=== PATIENT | female | born 1945 | race Caucasian/White ===

== ENCOUNTER 2017-08-30 07:57 | Inpatient (IN) | payer MEDICARE, OTHER ==
[~2017-08-30] VITALS: Ht 170.2 cm; Wt 81.2 kg
[~2017-08-30 07:57] MED LIST: ACET-3017 PO; AML5 PO; AMLO-96 PO; ASPI-1471 PO; ATOR40TA24 PO; CARV12.578 PO; CARV25TA77 PO; CARV25TA78 PO; CEP500 PO; CIPR-214 PO; CRAN200C5 PO; DIGO125T90 PO; DILT120C PO; DILT120C18 PO; DILT360C35 PO; EZE10 PO; FURO-45 PO; FURO-47 PO; FURO20TA19 PO; GLUC100026 PO; HYDR12.556 PO; INSU100V26 SC; LOR5/325 PO; LOS50 PO; LOSA-54 PO; LOSA100T67 PO; LOSA25TA50 PO; LOSA50TA72 PO; LYSI500T34 PO; METO50TA19 PO; MULT1TAB64 PO; NITR-105 PO; NPH,100V10 SQ; OXYGENHOME INH; PANT20TA26 PO; POTA20TA10; POTA20TA94 PO; RIVA15TA PO; RIVA20TA PO; SITA100T PO; SPIR1TAB26 PO; SULF-198 PO; [UNRECOGNIZED DRUG - CODE] PO
--- NOTE | 2017-08-30 08:03 | ER Report ---
History and Physical Time Seen By MD: 08:02 HPI/ROS CC: Shortness of breath with dysuria HPI: Since female with a past medical history CHF, recurrent urinary tract infections , chronic disease stage III, three-vessel CABG at [facility], lumbar surgery, bilateral cataract extraction with intraocular lens, T&A atrial fibrillation on Xeralto, chronic diastolic heart failure, COPD on 3 L nasal cannula O2 24/7. Over the last week patient has increased in shortness of breath. She is complaining of increased ankle swelling. Decreased exercise tolerance. She denies any chest pressure or pain only increased shortness of breath. No diaphoresis, nausea. Patient also states that she has had chronic ongoing urinary tract infections and has been treated with Cipro and Levaquin in the past. She followed up with Dr. Reid. She states that he keeps putting her on Cipro and she remembers free from her urinary tract infection. She is stating that she has dysuria and is rating her pain as a 7-8 out of 10. Increased frequencies. There are no alleviating factors. Reviewing her old chart 3 of the last 4 visits she has presented with CHF and urinary tract infections. Activity seems to make her shortness of breath worse. ROS: 12 point review of systems essentially negative other than what's mentioned in history of present illness. NURSES AND OLD MEDICAL RECORDS: Reviewed PMH: Reviewed SURGICAL HX: Reviewed FAMILY HX: Noncontributory SOCIAL HX: Patient denies smoking alcohol or illicit drugs. VITAL SIGNS: Reviewed CONSTITUTIONAL: Since female in moderate distress. PHYSICAL EXAM: HEENT: Pupils equal round reactive to light and accommodate, EOMI, tympanic membranes pearly white umbo present with good light reflex. Lips dry mucous membranes moist gums nonbleeding uvula midline and rises equally with phonation, oropharynx noninjected, teeth intact. NECK: Neck supple, thyroid not appreciated, anterior and posterior cervical lymphadenopathy not appreciated. Trachea midline and rises equally with phonation. CARDIAC: S1-S2 irregularly irregular with 6 systolic murmur 2nd intercostal space right sternal border. No rubs or gallops. LUNGS: Lungs slight rales at the bases bilaterally posteriorly. Decreased air movement. ABDOMEN: Abdomen soft, nondistended, bowel sounds active in all 4 quadrants, no bruits noted, no CVA tenderness. MUSCULOSKELETAL: Strength 5 out of 5 x 4 extremities, no deformities noted. NEUROLOGIC: Patient alert and oriented by 3 Allergies: Coded Allergies: ketorolac (Verified Allergy, Severe, COULD NOT SEE, N&V, THOUGHT SHE WAS GOING TO , 08/30/17) ibuprofen (Verified Adverse Reaction, Unknown, DIZZINESS, NAUSEA, VOMITING , 08/30/17) Home Meds Active Scripts Furosemide (FUROSEMIDE) 40 Mg Tablet, 40 MG PO QDAY, #30 Prov:UMM APONTE MD 04/15/17 Diltiazem Hcl (DILTIAZEM 24HR CD) 120 Mg Cap.er.24h, 240 MG PO QDAY, #60 Prov:UMM APONTE MD 04/15/17 Carvedilol (CARVEDILOL) 25 Mg Tablet, 25 MG PO BID, #60 Prov:UMM APONTE MD 04/15/17 Digoxin (Digox) 125 Mcg Tablet, 0.125 MG PO QDAY, #30 TAB 1 Refill Prov:RAMIN DUMONT MD 02/14/17 Reported Medications Oxygen (OXYGEN) Inha, 3 L INH, L 06/18/17 Rivaroxaban 20 Mg (XARELTO 20 MG) 20 Mg Tablet, 20 MG PO QDAY, TAB 02/07/17 Lysine (LYSINE) 500 Mg Tablet, 500 MG PO DAILY 04/27/16 Cranberry Extract (CRANBERRY) 200 Mg Capsule, 200 MG PO BID, CAPSULE 11/11/14 Glucosamine Sulfate 2KCL (GLUCOSAMINE) 1,000 Mg Tablet, 1000 MG PO BID 04/14/14 Multivitamin (MULTI VITAMIN DAILY) 1 Each Tablet, 1 EACH PO QDAY 04/14/14 Insulin Human Regular (Humulin R) 100 U/Ml Vial, 5 U SC TIDCF SS FOR BS 200-250 2 UNITS, 251-300 4 UNITS, 301-350 6 UNITS, 351-400 8 UNITS, OVER 400 10 UNITS 03/04/12 Nph, Human Insulin Isophane (HUMULIN N) 100 Unit/1 Ml Vial, 35 UNIT SQ BIDBS 03/04/12 Discontinued Reported Medications Ciprofloxacin Hcl (CIPROFLOXACIN HCL) 500 Mg Tablet, 500 MG PO BID, #30 TAB 06/21/17 Acetaminophen With Codeine # 3 (TYLENOL WITH CODEINE #3 TABLET) 1 Each Tablet, 1 EACH PO Q6H Y for PAIN, #15 TAB 06/21/17 Hx Smoking: No Smoking Status: Never Smoker Exposure to Second Hand Smoke?: Yes (daugher smokes) Hx Substance Use Disorder: No Hx Alcohol Use: No Constitutional Vital Sign - Last 24 Hours 08/30/17 08/30/17 08/30/17 08/30/17 08:01 08:03 08:07 08:30 Temp 97.6 Pulse 97 Resp 20 B/P (MAP) 133/79 133/79 (97) 175/81 (112) Pulse Ox 91 O2 Delivery Nasal Cannula O2 Flow Rate 3.0 08/30/17 08/30/17 08/30/17 08:37 08:37 08:43 Pulse 80 93 Resp 18 18 Pulse Ox 91 O2 Delivery Nasal Cannula O2 Flow Rate 3.0 Intake and Output 08/30/17 08/30/17 08/31/17 15:00 23:00 07:00 Output Total 215 ml Balance -215 ml Medical Decision Making Data Points Result Diagram: 08/30/17 0820 08/30/17 0820 Laboratory Hematology Test 08/30/17 08:20 08/30/17 08:38 08/30/17 09:00 Red Blood Count 3.51 M/uL (4.17-5.56) Mean Corpuscular Volume 82.8 fL (80.0-96.0) Mean Corpuscular Hemoglobin 25.4 pg (26.0-33.0) Mean Corpuscular Hemoglobin Concent 30.7 g/dL (32.0-36.0) Red Cell Distribution Width 22.7 % (11.5-14.5) Mean Platelet Volume 8.3 fL (7.2-11.1) Neutrophils (%) (Auto) 73.9 % (39.4-72.5) Lymphocytes (%) (Auto) 12.9 % (17.6-49.6) Monocytes (%) (Auto) 9.7 % (4.1-12.4) Eosinophils (%) (Auto) 2.6 % (0.4-6.7) Basophils (%) (Auto) 0.9 % (0.3-1.4) Nucleated RBC Relative Count (auto) 0.4 /100WBC Neutrophils # (Auto) 10.6 K/uL (2.0-7.4) Lymphocytes # (Auto) 1.9 K/uL (1.3-3.6) Monocytes # (Auto) 1.4 K/uL (0.3-1.0) Eosinophils # (Auto) 0.4 K/uL (0.0-0.5) Basophils # (Auto) 0.1 K/uL (0.0-0.1) Nucleated RBC Absolute Count (auto) 0.06 K/uL Peripheral Blood Smear Yes Y/N Prothrombin Time 21.0 seconds (12.0-14.4) Prothromb Time International Ratio 1.77 Activated Partial Thromboplast Time 38 seconds (23-35) D-Dimer Quantitative (PE/DVT) 0.39 ug/ml (0-0.50) Urine Color Mary Urine Clarity Clear Urine pH 6.0 pH (4.8-9.5) Urine Specific [place] 1.010 Urine Protein 100 mg/dL (NEGATIVE) Urine Glucose (UA) Negative mg/dL (NEGATIVE) Urine Ketones Negative mg/dL (NEGATIVE) Urine Blood Moderate (NEGATIVE) Urine Nitrite Positive (NEGATIVE) Urine Bilirubin Negative (NEGATIVE) Urine Urobilinogen 4.0 mg/dL (0.2-1.9) Urine Leukocyte Esterase Trace (NEGATIVE) Urine RBC 92 /HPF (0-2/HPF) Urine WBC 113 /HPF (0-5/HPF) Urine WBC Clumps Few /HPF Urine Squamous Epithelial Cells Few /LPF (NONE-FEW) Urine Bacteria Moderate /HPF (NONE-FEW) Urine Hyaline Casts Few /LPF (NONE-FEW) Urine Mucus None /HPF (NONE-FEW) Sodium Level 138 mmol/L (137-145) Potassium Level 3.6 mmol/L (3.5-5.0) Chloride Level 100 mmol/L (98-107) Carbon Dioxide Level 27 mmol/L (22-31) Blood Urea Nitrogen 15 mg/dl (7-18) Creatinine 1.10 mg/dl (0.52-1.04) Glomerular Filtration Rate Calc 48.8 Random Glucose 165 mg/dl (75-110) Hemoglobin A1c 6.4 % (4.6-6.0) Calcium Level 9.7 mg/dl (8.4-10.2) Magnesium Level 1.8 mg/dl (1.7-2.2) Total Bilirubin 2.0 mg/dl (0.2-1.3) Aspartate Amino Transf (AST/SGOT) 22 U/L (0-35) Alanine Aminotransferase (ALT/SGPT) 30 U/L (0-56) Alkaline Phosphatase 99 U/L (0-126) Troponin I 0.029 ng/ml B-Type Natriuretic Peptide 419 pg/ml (0-100) Total Protein 6.4 gm/dl (6.3-8.2) Albumin 3.7 g/dl (3.5-5.0) Blood Gas Puncture Site Left brachial Blood Gas Patient Temperature 97.6 DEGREES Arterial Blood pH 7.61 (7.35-7.45) Arterial Blood Partial Pressure CO2 28 mmHg (32-37) Arterial Blood Partial Pressure O2 129 mmHg (60-80) Arterial Blood HCO3 28 mmol/L (20-26) Arterial Blood Oxygen Saturation 99 % (92-100) Arterial Blood Base Excess 7.0 mmol/L Fausto Test Nt avail Oxygen Liters/Minute 3l nc Stool Occult Blood (IFOB) Positive (NEGATIVE) Chemistry Test 08/30/17 08:20 08/30/17 08:38 08/30/17 09:00 White Blood Count 14.4 k/uL (4.5-11.0) Red Blood Count 3.51 M/uL (4.17-5.56) Hemoglobin 8.9 g/dL (12.0-16.0) Hematocrit 29.1 % (34.0-47.0) Mean Corpuscular Volume 82.8 fL (80.0-96.0) Mean Corpuscular Hemoglobin 25.4 pg (26.0-33.0) Mean Corpuscular Hemoglobin Concent 30.7 g/dL (32.0-36.0) Red Cell Distribution Width 22.7 % (11.5-14.5) Platelet Count 392 K/uL (150-450) Mean Platelet Volume 8.3 fL (7.2-11.1) Neutrophils (%) (Auto) 73.9 % (39.4-72.5) Lymphocytes (%) (Auto) 12.9 % (17.6-49.6) Monocytes (%) (Auto) 9.7 % (4.1-12.4) Eosinophils (%) (Auto) 2.6 % (0.4-6.7) Basophils (%) (Auto) 0.9 % (0.3-1.4) Nucleated RBC Relative Count (auto) 0.4 /100WBC Neutrophils # (Auto) 10.6 K/uL (2.0-7.4) Lymphocytes # (Auto) 1.9 K/uL (1.3-3.6) Monocytes # (Auto) 1.4 K/uL (0.3-1.0) Eosinophils # (Auto) 0.4 K/uL (0.0-0.5) Basophils # (Auto) 0.1 K/uL (0.0-0.1) Nucleated RBC Absolute Count (auto) 0.06 K/uL Peripheral Blood Smear Yes Y/N Prothrombin Time 21.0 seconds (12.0-14.4) Prothromb Time International Ratio 1.77 Activated Partial Thromboplast Time 38 seconds (23-35) D-Dimer Quantitative (PE/DVT) 0.39 ug/ml (0-0.50) Urine Color Mary Urine Clarity Clear Urine pH 6.0 pH (4.8-9.5) Urine Specific [place] 1.010 Urine Protein 100 mg/dL (NEGATIVE) Urine Glucose (UA) Negative mg/dL (NEGATIVE) Urine Ketones Negative mg/dL (NEGATIVE) Urine Blood Moderate (NEGATIVE) Urine Nitrite Positive (NEGATIVE) Urine Bilirubin Negative (NEGATIVE) Urine Urobilinogen 4.0 mg/dL (0.2-1.9) Urine Leukocyte Esterase Trace (NEGATIVE) Urine RBC 92 /HPF (0-2/HPF) Urine WBC 113 /HPF (0-5/HPF) Urine WBC Clumps Few /HPF Urine Squamous Epithelial Cells Few /LPF (NONE-FEW) Urine Bacteria Moderate /HPF (NONE-FEW) Urine Hyaline Casts Few /LPF (NONE-FEW) Urine Mucus None /HPF (NONE-FEW) Glomerular Filtration Rate Calc 48.8 Hemoglobin A1c 6.4 % (4.6-6.0) Calcium Level 9.7 mg/dl (8.4-10.2) Magnesium Level 1.8 mg/dl (1.7-2.2) Total Bilirubin 2.0 mg/dl (0.2-1.3) Aspartate Amino Transf (AST/SGOT) 22 U/L (0-35) Alanine Aminotransferase (ALT/SGPT) 30 U/L (0-56) Alkaline Phosphatase 99 U/L (0-126) Troponin I 0.029 ng/ml B-Type Natriuretic Peptide 419 pg/ml (0-100) Total Protein 6.4 gm/dl (6.3-8.2) Albumin 3.7 g/dl (3.5-5.0) Blood Gas Puncture Site Left brachial Blood Gas Patient Temperature 97.6 DEGREES Arterial Blood pH 7.61 (7.35-7.45) Arterial Blood Partial Pressure CO2 28 mmHg (32-37) Arterial Blood Partial Pressure O2 129 mmHg (60-80) Arterial Blood HCO3 28 mmol/L (20-26) Arterial Blood Oxygen Saturation 99 % (92-100) Arterial Blood Base Excess 7.0 mmol/L Fausto Test Nt avail Oxygen Liters/Minute 3l nc Stool Occult Blood (IFOB) Positive (NEGATIVE) Coagulation Test 08/30/17 08:20 Prothrombin Time 21.0 seconds Prothromb Time International Ratio 1.77 Activated Partial Thromboplast Time 38 seconds D-Dimer Quantitative (PE/DVT) 0.39 ug/ml Urinalysis Test 08/30/17 08:20 Urine Color Mary Urine Clarity Clear Urine pH 6.0 pH (4.8-9.5) Urine Specific [place] 1.010 Urine Protein 100 mg/dL (NEGATIVE) Urine Glucose (UA) Negative mg/dL (NEGATIVE) Urine Ketones Negative mg/dL (NEGATIVE) Urine Blood Moderate (NEGATIVE) Urine Nitrite Positive (NEGATIVE) Urine Bilirubin Negative (NEGATIVE) Urine Urobilinogen 4.0 mg/dL (0.2-1.9) Urine Leukocyte Esterase Trace (NEGATIVE) Urine RBC 92 /HPF (0-2/HPF) Urine WBC 113 /HPF (0-5/HPF) Urine WBC Clumps Few /HPF Urine Squamous Epithelial Cells Few /LPF (NONE-FEW) Urine Bacteria Moderate /HPF (NONE-FEW) Urine Hyaline Casts Few /LPF (NONE-FEW) Urine Mucus None /HPF (NONE-FEW) Microbiology Microbiology Date/Time Source Procedure Growth Status 08/30/17 08:38 Blood Peripheral Draw Blood Culture - Preliminary NO GROWTH SO FAR, SET LATE. REINCUBATED Resulted 08/30/17 08:19 Blood Blood Culture - Preliminary NO GROWTH SO FAR, SET LATE. REINCUBATED Resulted EKG/Imaging EKG Interpretation Atrial fibrillation, right axis deviation, incomplete left bundle branch block, ST T wave abnormality possible inferior ischemia or dig effect. Ventricular rate 86 bpm, FL interval not measurable, QRS duration 112 ms, QT 380 ms, QTC 454 ms. Configurations of V1 through V6 from previous ECG has not changed from 04/12/2017. Imaging Chest x-ray: IMPRESSION: No significant change from 04/12/2017. Mild cardiomegaly with chronic venous congestion and a small left pleural effusion. Sequela of prior CABG. ED Course/Re-evaluation ED Course Patient has decreasing hemoglobin and hematocrit from previous lab work on a 06/2017. At that time her hemoglobin was 11.2 with a hematocrit of 35.5 today she has a hemoglobin of 8.9 and a hematocrit of 29.4. ECG does not show any specific changes. Patient does have a leukocytosis of 14.4. Due to the long history of urinary tract infections patient was given vancomycin in the light of increasing leukocytosis. Blood cultures by 2 have been taken. ABGs reveal a respiratory alkalosis. Urinalysis reveals positive leukocyte esterases and nitrates with moderate blood. 0953: I discussed the case with Dr. Dumont. Patient historically looks worse today with dropping hemoglobin of 8.9 and a positive Hemoccult. Leukocytosis with WBC of 14.4 is an acute change. Chest x-ray shows venous congestion but no kathleen infiltrates or consolidations. Left lower lobe effusion remains. ABGs shows acute respiratory alkalosis which may be secondary to anxiety. Patient received Ativan 1 mg. ECG did not show any acute changes. Due to UTI that appears to be chronic, leukocytosis, new-onset anemia patient will be admitted to the hospital for further evaluation and workup. Initially patient received vancomycin patient reporting that antibiotics in the past have eliminated her UTI. I assumed drug-resistant urinary tract infection and therefore gave vancomycin. But in reviewing her old chart last susceptibilities and sensitivities most all antibiotics will be effective. Patient received a DuoNeb treatment for her shortness of breath with improvement. Patient received Solu- Medrol 125 mg IV for her shortness of breath and her history of COPD. Patient also received Lasix image away as she has always presented with CHF. Today her lower leg edema was 2+ bilaterally. I discussed this with Dr. Dumont. Patient will be admitted to the hospital for further evaluation and treatment. Re-evaluation Medical decision making includes but not excluded to CHF, TIA, acute coronary syndrome, anemia, GI bleed Decision to Disposition Date: Aug 30, 2017 Decision to Disposition Time: 09:59 Depart Departure Latest Vital Signs Vital Signs Date Time Temp Pulse Resp B/P (MAP) Pulse Ox O2 Delivery O2 Flow Rate FiO2 08/30/17 08:43 93 18 08/30/17 08:37 91 Nasal Cannula 3.0 08/30/17 08:30 175/81 (112) 08/30/17 08:01 97.6 Impression: Primary Impression: Anemia Additional Impressions: CKD (chronic kidney disease) stage 3, GFR 30-59 ml/min UTI (lower urinary tract infection) Leukocytosis Blood in stool Condition: Condition Unchanged Disposition: Admitted from ER Referrals: KARIN MELENDEZ DO (PCP) Problem Qualifiers Primary Impression: Anemia Anemia type: unspecified type Qualified Codes: D64.9 - Anemia, unspecified Additional Impressions: Leukocytosis Leukocytosis type: unspecified Qualified Codes: D72.829 - Elevated white blood cell count, unspecified RENETTA ORDOÑEZ MD Aug 30, 2017 08:03
[2017-08-30] MEDS ORDERED: FUROSEMIDE 40 MG/4 ML VIAL IVP ONE (08:15)
[2017-08-30] MEDS ORDERED: VANCOMYCIN(*) 1 GM VIAL 1 GM, VANCOMYCIN (*) 0.5 GM VIAL 0.5 GM in NS(*) 0.9% 250 ML BA... IVPB ONE (08:15)
--- NOTE | 2017-08-30 08:22 | EKG ---
FACILITY: [facility] - [place] PATIENT NAME: ELIZABETH ROD : [id number] MR: [id number] V: [id number] EXAM DATE: ORDERING PHYSICIAN: RENETTA ORDOÑEZ TECHNOLOGIST: HARPREET Test Reason : SOB Blood Pressure : / mmHG Vent. Rate : 086 BPM Atrial Rate : 088 BPM P-R Int : 000 ms QRS Dur : 112 ms QT Int : 380 ms P-R-T Axes : 000 095 -68 degrees QTc Int : 454 ms Atrial fibrillation Rightward axis Incomplete left bundle branch block ST-T changes diffusely Abnormal ECG When compared with ECG of 12-APR-2017 17:48, No significant change was found Confirmed by RAMIN THURMAN ([id number]) on 08/30/2017 1:30:16 PM Referred By: TIAGO Confirmed By:RAMIN THURMAN
[2017-08-30] MEDS ORDERED: ALBUTEROL/IPRATROPIUM 3 ML NEB NEB ONE (08:35)
[2017-08-30] MEDS ORDERED: methylPREDNIS SUCC 125 MG/2ML IVP ONE (08:35)
[2017-08-30 08:37] LABS: PLATELET COUNT, AUTOMATED 392 K/uL (150-450)
[2017-08-30 08:45] LABS: INR 1.77
[2017-08-30] MEDS ORDERED: LORazepam 2 MG/ML VIAL IVP ONE (09:05)
--- NOTE | 2017-08-30 09:43 | RADIOLOGY IMAGING REPORT ---
FACILITY: [facility] PATIENT NAME: Elena Saunders : 1945 MR: [id number] V: [id number] EXAM DATE: ORDERING PHYSICIAN: RENETTA ORDOÑEZ TECHNOLOGIST: [place] [facility] [place] Sa[place] : 1945 Visit/Account:[id number] Date of Sevice: 08/30/2017 CHEST PA AND LAT COMPARISON: 04/12/2017 HISTORY: Chest pain, shortness of breath and history of CABG. FINDINGS: CARDIAC/VASC: Mild stable cardiomegaly with mild diffuse vascular congestion which is similar to p revious. Intact sternotomy wires. Mediastinal clips indicative of prior CABG.. MEDIASTINUM: Mild aortic calcifications. No appreciable adenopathy. LUNGS/PLEURA: Small left pleural effusion without significant change from previous. No significant r ight effusion. Linear opacities in the left lower lobe are stable from previous consistent with mild chronic atelectasis or scarring. There is no consolidation. BONES: Mild thoracic spine degenerative changes. OTHER: Moderate vascular calcifications in the abdomen. IMPRESSION: No significant change from 04/12/2017. Mild cardiomegaly with chronic venous congestion and a small le ft pleural effusion. Sequela of prior CABG. Report Dictated By: Michael Nunez at 08/30/2017 9:38 AM Report E-Signed By: Michael Nunez at 08/30/2017 9:39 AM WSN:[id number]
[2017-08-30 10:54] VITALS: BP 134/80
[2017-08-30] MEDS ORDERED: cefTRIAXone 1 GM VIAL IVP ONE (13:00)
[2017-08-30] MEDS ORDERED: NS(*) 0.9% 250 ML BAG 250 ML ONE (13:05)
[2017-08-30] MEDS ORDERED: FLUSH 10 ML SYR IVP PRN (14:30)
--- NOTE | 2017-08-30 14:34 | History & Physical ---
History of Present Illness Chief Complaint The patient is a 71 year old female with PMH significant for recurrent UTI, diastolic heart failure and CAD who presents with a 2-3 day history of frequency of urination and dysuria and a 2 day history of increased shortness of breath. History of Present Illness The patient states that she has had recurrent UTIs since retiring. Her mother had them as well. She had an outpatient cystoscopy with Dr. Reid on 06/21 that showed acute and chronic inflammation. Cytology was negative. She was treated with 6 weeks of Cipro. She states she started having dysuria and increased frequency 2-3 days prior to admission. She denies fever, chills, abdominal or flank pain. She did start OTC AZO for her symptoms. The patient states she showers and does not sit in a tub. She is and not sexually active. She is frustrated that she continues to get these infections. The patient also has a history of chronic diastolic dysfunction (3-4/4 on recent echo). She also has a history of CAD s/p CABG about 4 years ago. She also has chronic atrial fibrillation. She denies chest pain or diaphoresis. She has not been nauseated. She denies increased heart rate or palpitations. She states that she has noticed increased fatigue and shortness of breath with exertion over the past 2 days. She admits that she has been pushing herself to try and do more physical activity. She sleeps in a recliner due to back/hip pain. She has woken up at night acutely short of breath. She has had chronic swelling of her ankles since her CABG. She says the swelling worsens during the day and improves overnight. This has been a bit worse as well. She has seen Dr. Swanson, pan devulcanizer, in the past but now prefers to have Dr. Barboza, her PCP, manage her cardiac medications. History Problems: (1) Follicular non-Hodgkin's lymphoma Status: Chronic (2) CKD (chronic kidney disease) stage 3, GFR 30-59 ml/min Status: Chronic (3) Anemia Status: Chronic (4) Chronic diastolic (congestive) heart failure Status: Acute (5) Type II diabetes mellitus Status: Chronic (6) HTN (hypertension) Status: Chronic (7) CAD (coronary artery disease) Status: Chronic (8) Hypercholesteremia Status: Chronic (9) Edema Status: Chronic Home Meds Active Scripts Furosemide (FUROSEMIDE) 40 Mg Tablet, 40 MG PO QDAY, #30 Prov:UMM APONTE MD 04/15/17 Diltiazem Hcl (DILTIAZEM 24HR CD) 120 Mg Cap.er.24h, 240 MG PO QDAY, #60 Prov:UMM APONTE MD 04/15/17 Carvedilol (CARVEDILOL) 25 Mg Tablet, 25 MG PO BID, #60 Prov:UMM APONTE MD 04/15/17 Digoxin (Digox) 125 Mcg Tablet, 0.125 MG PO QDAY, #30 TAB 1 Refill Prov:RAMIN THURMAN MD 02/14/17 Reported Medications Oxygen (OXYGEN) Inha, 3 L INH, L 06/18/17 Rivaroxaban 20 Mg (XARELTO 20 MG) 20 Mg Tablet, 20 MG PO QDAY, TAB 02/07/17 Lysine (LYSINE) 500 Mg Tablet, 500 MG PO DAILY 04/27/16 Cranberry Extract (CRANBERRY) 200 Mg Capsule, 200 MG PO BID, CAPSULE 11/11/14 Glucosamine Sulfate 2KCL (GLUCOSAMINE) 1,000 Mg Tablet, 1000 MG PO BID 04/14/14 Multivitamin (MULTI VITAMIN DAILY) 1 Each Tablet, 1 EACH PO QDAY 04/14/14 Insulin Human Regular (Humulin R) 100 U/Ml Vial, 5 U SC TIDCF SS FOR BS 200-250 2 UNITS, 251-300 4 UNITS, 301-350 6 UNITS, 351-400 8 UNITS, OVER 400 10 UNITS 03/04/12 Nph, Human Insulin Isophane (HUMULIN N) 100 Unit/1 Ml Vial, 35 UNIT SQ BIDBS 03/04/12 Discontinued Reported Medications Ciprofloxacin Hcl (CIPROFLOXACIN HCL) 500 Mg Tablet, 500 MG PO BID, #30 TAB 06/21/17 Acetaminophen With Codeine # 3 (TYLENOL WITH CODEINE #3 TABLET) 1 Each Tablet, 1 EACH PO Q6H Y for PAIN, #15 TAB 06/21/17 Allergies: Coded Allergies: ketorolac (Verified Allergy, Severe, COULD NOT SEE, N&V, THOUGHT SHE WAS GOING TO , 08/30/17) ibuprofen (Verified Adverse Reaction, Unknown, DIZZINESS, NAUSEA, VOMITING , 08/30/17) Patient History: UTI (urinary tract infection) MOTHER (CKD), Other Social/Family Hx The patient is and retired. Hx Smoking: No Smoking Status: Never Smoker Exposure to Second Hand Smoke?: Yes (daugher smokes) Caffeine Intake: Soda Caffeine/Cups Per Day: occ 1 can Hx Alcohol Use: No Hx Substance Use Disorder: No Social Drug Use: Never History of IV Drug Use: No Review of Systems Constitutional: No Fever, No Chills Neurological: Weakness (With exertion.) Eyes: No Vision Change ENT: No Hearing Loss Cardiovascular: No Chest Pain, No Palpitations Respiratory: Shortness of Breath, No Cough, No Wheezing Gastrointestinal: No Nausea, No Vomiting, No Diarrhea Genitourinary: Dysuria Musculoskeletal: No Pain Psychiatric: No Depression Exam Vital Signs Vital Signs Date Time Temp Pulse Resp B/P (MAP) Pulse Ox O2 Delivery O2 Flow Rate FiO2 08/30/17 12:43 91 Nasal Cannula 5.0 08/30/17 10:54 97.9 106 18 134/80 (98) General Appearance: Alert, Awake, No Acute Distress, Afebrile Neuro: No Gross deficits Eyes: PERRLA Cardiovascular: Other (Irregularly irregular.) Respiratory: Other (Diffuse crackles anteriorly and in bases posteriorly. No wheezing or rhonchi.) GI: Abd Soft and Non-Tender Lymph: Cervical Nodes Benign Extremities: Warm, Perfused, Other (Trace to 1+ edema.) Integumentary: Skin Intact without Lesion / Mass Psych: Alert & Oriented X3, Appropriate Mood & Affect Medical Decision Making Data Points Result Diagram: 08/30/17 0820 08/30/17 0820 Item Value Date Time Prothrombin Time 21.0 seconds H 08/30/17 0820 Prothromb Time International Ratio 1.77 08/30/17 0820 Activated Partial Thromboplast Time 38 seconds H 08/30/17 0820 D-Dimer Quantitative (PE/DVT) 0.39 ug/ml 08/30/17 0820 Blood Gas Puncture Site Left brachial 08/30/17 0838 Blood Gas Patient Temperature 97.6 DEGREES 08/30/17 0838 Arterial Blood pH 7.61 *H 08/30/17 0838 Arterial Blood Partial Pressure CO2 28 mmHg L 08/30/17 0838 Arterial Blood Partial Pressure O2 129 mmHg *H 08/30/17 0838 Arterial Blood HCO3 28 mmol/L H 08/30/17 0838 Arterial Blood Oxygen Saturation 99 % 08/30/17 0838 Arterial Blood Base Excess 7.0 mmol/L 08/30/17 0838 Fausto Test Nt avail 08/30/17 0838 Oxygen Liters/Minute 3l nc 08/30/17 0838 B-Type Natriuretic Peptide 419 pg/ml H 08/30/17 0820 Magnesium Level 1.8 mg/dl 08/30/17 0820 Hemoglobin A1c 6.4 % H 08/30/17 0820 Whole Blood Glucose 242 mg/DL H 08/30/17 1223 Random Glucose 165 mg/dl H 08/30/17 0820 Calcium Level 9.7 mg/dl 08/30/17 0820 Total Bilirubin 2.0 mg/dl H 08/30/17 0820 Aspartate Amino Transf (AST/SGOT) 22 U/L 08/30/17 0820 Alanine Aminotransferase (ALT/SGPT) 30 U/L 08/30/17 0820 Alkaline Phosphatase 99 U/L 08/30/17 0820 Total Protein 6.4 gm/dl 08/30/17 0820 Albumin 3.7 g/dl 08/30/17 0820 Troponin I 0.029 ng/ml 08/30/17 0820 Urine and blood cultures pending. EKG / Imaging EKG Interpretation FACILITY: [facility] PATIENT NAME: ELENA ROD DOB: [id number] MR: [id number] V: [id number] EXAM DATE: ORDERING PHYSICIAN: RENETTA ORDOÑEZ TECHNOLOGIST: Test Reason : SOB Blood Pressure : / mmHG Vent. Rate : 086 BPM Atrial Rate : 088 BPM P-R Int : 000 ms QRS Dur : 112 ms QT Int : 380 ms P-R-T Axes : 000 095 -68 degrees QTc Int : 454 ms Atrial fibrillation Rightward axis Incomplete left bundle branch block ST-T changes diffusely Abnormal ECG When compared with ECG of 12-APR-2017 17:48, No significant change was found Confirmed by RAMIN THURMAN ([id number]) on 08/30/2017 1:30:16 PM Referred By: TIAGO Confirmed By:RAMIN THURMAN 0813 T: CARLMART/ Monitor Interpretation: Atrial Fibrillation Imaging FACILITY: [facility] PATIENT NAME: Elena Rod : 1945 MR: [id number] V: [id number] EXAM DATE: ORDERING PHYSICIAN: RENETTA ORDOÑEZ TECHNOLOGIST: Location: [facility] [place] Patient: Elena Rod : 1945 Visit/Account:[id number] Date of Sevice: 08/30/2017 CHEST PA AND LAT COMPARISON: 04/12/2017 HISTORY: Chest pain, shortness of breath and history of CABG. FINDINGS: CARDIAC/VASC: Mild stable cardiomegaly with mild diffuse vascular congestion which is similar to previous. Intact sternotomy wires. Mediastinal clips indicative of prior CABG.. MEDIASTINUM: Mild aortic calcifications. No appreciable adenopathy. LUNGS/PLEURA: Small left pleural effusion without significant change from previous. No significant right effusion. Linear opacities in the left lower lobe are stable from previous consistent with mild chronic atelectasis or scarring. There is no consolidation. BONES: Mild thoracic spine degenerative changes. OTHER: Moderate vascular calcifications in the abdomen. IMPRESSION: No significant change from 04/12/2017. Mild cardiomegaly with chronic venous congestion and a small left pleural effusion. Sequela of prior CABG. Report Dictated By: Michael Nunez at 08/30/2017 9:38 AM Report E-Signed By: Michael Nunez at 08/30/2017 9:39 AM [id number] Pre-Admit Course ED Medications Duoneb, Vanco, Lasix 40mg IV, Ativan 1mg IV, Solu Medrol. Medical Record Review: Yes Assessment and Plan Problems: (1) Acute diastolic heart failure Status: Acute Assessment & Plan: The patient had grade 3-4/4 diastolic dysfunction on echo done in November of 2016. She had normal EF at that time. A more recent echo from shows an EF of 71% but the patient was in a fib so diastolic function could not be assessed. She has been on carvedilol and diltiazem. She is also on Lasix 40mg daily at home. CXR today shows mild cardiomegaly with chronic venous congestion and a small left pleural effusion. EKG shows atrial fibrillation with diffuse ST-T wave changes which are unchanged from previous. Her initial troponin was in the equivocal range at 0.029. BNP 419 which is higher than she has been in the past. Will repeat troponin. She was given Lasix IV 40mg in ER. A Johnson is in place. Will monitor daily weight, Is and Os. Will follow electrolytes. Will continue carvedilol and diltiazem. (2) Anemia Status: Chronic Assessment & Plan: The patient has a significant drop in her hemoglobin. She has a heme positive stool today. The patient has been anemic in the past. This was felt to be due to hematuria but she did have a heme positive stool in the past and was instructed to see Dr. Medina as an outpatient to discuss colonoscopy. The patient has not had a screening colonoscopy. She states she does not want to have a colonoscopy. Will repeat CBC in am. Monitor for signs of active bleeding. (3) Blood in stool Status: Acute Assessment & Plan: See above. (4) UTI (urinary tract infection) Status: Acute Assessment & Plan: The patient has been symptomatic with dysuria and frequency. Her WBC is elevated. Urinalysis shows pyuria. Urine culture is pending. Will start Rocephin. She was given a dose of Vancomycin in the ER, etiology is unclear. (5) CHRONIC ATRIAL FIBRILLATION Status: Chronic Assessment & Plan: Will continue Digoxin. Level is pending. Will continue diltiazem. Hold Xarelto due to anemia and heme + stool. (6) CKD (chronic kidney disease) stage 3, GFR 30-59 ml/min Status: Chronic Assessment & Plan: Creatinine is 1.1. Will recheck labs in am. Potassium is normal. (7) CAD (coronary artery disease) Status: Chronic Assessment & Plan: The patient had 3 vessel CABG about 4 years ago. She denies chest pain. Troponin is 0.029 which is stable for her. Will repeat a troponin. Hold Xarelto due to anemia and heme + stool Continue carvedilol. (8) Type II diabetes mellitus Status: Chronic Assessment & Plan: Continue NPH 35u bid. Monitor glucoses AC/HS. SSI level 2 prn as well. Hgb A1c 6.4. (9) HTN (hypertension) Status: Chronic Assessment & Plan: Continue carvedilol and diltiazem. Will continue Lasix as well. (10) Follicular non-Hodgkin's lymphoma Status: Chronic Assessment & Plan: [facility] by the [facility]. Currently not requiring any treatment. (11) Hypercholesteremia Status: Chronic Assessment & Plan: She had been on atorvastatin in the past but is currently not on any meds. (12) Edema Status: Chronic Assessment & Plan: Chronic since her CABG and a bit worse over the past few days. IV Lasix given in ER. Elevate legs. Time Spent on Plan of Care: < 30 min Venous Thromboembolism VTE Risk Physician Assess for VTE Risk: Yes Patient's VTE Risk: Low VTE Diagnostic Test 2 Days Prior to Admit: No Antithrombotics Is Pt On Any Antithrombotics?: No Prophylaxis Tx Contraindicated Pharmacological Contraindicati: Active Bleeding Exam Sepsis Risk: Sepsis Risk Problem Qualifiers (1) Anemia: Anemia type: unspecified type Qualified Codes: D64.9 - Anemia, unspecified YARELI THURMAN MD Aug 30, 2017 14:34
[2017-08-30 15:18] VITALS: BP 171/71
[2017-08-30] MEDS: RIVAROXABAN 10 MG TAB PO SCH (16:46)
[2017-08-30] MEDS: INSULIN HUM LISPRO 100 UN/ML 3 ML VIAL SUBQ PRN ×2 (16:47→20:46)
[2017-08-30] MEDS: INSULIN HUM ISO(NPH) 100 UN/ML 3 ML VIAL SUBQ SCH (16:47)
[2017-08-30 19:18] VITALS: BP 184/87
[2017-08-30] MEDS: CARVEDILOL 25 MG TABLET PO SCH (20:36)
[2017-08-31] VITALS (7 sets, daily range): BP systolic 150–184; BP diastolic 65–95; Ht 170.2 cm; Wt 81.2 kg
[2017-08-31] MEDS: INSULIN HUM LISPRO 100 UN/ML 3 ML VIAL SUBQ PRN ×2 (00:24→07:39)
[2017-08-31 06:46] LABS: PLATELET COUNT, AUTOMATED 429 K/uL (150-450)
[2017-08-31] MEDS: DIGOXIN 0.125 MG TAB PO SCH (07:38)
[2017-08-31] MEDS: CARVEDILOL 25 MG TABLET PO SCH ×2 (07:38→21:29)
[2017-08-31] MEDS: ACETAMINOPHEN 325 MG TAB PO PRN ×2 (07:39→21:29)
[2017-08-31] MEDS: DILTIAZEM CD 120 MG CAPCR PO SCH (07:39)
[2017-08-31] MEDS: MULTIVITAMINS TAB PO SCH (07:39)
[2017-08-31] MEDS: INSULIN HUM ISO(NPH) 100 UN/ML 3 ML VIAL SUBQ SCH ×2 (07:41→17:01)
[2017-08-31] MEDS ORDERED: INSULIN HUM LISPRO 100 UN/ML 3 ML VIAL SUBQ PRN (08:30)
--- NOTE | 2017-08-31 10:46 | Hospitalist Progress Note ---
Subjective Progress Notes Subjective This patient was admitted for acute heart failure. She had no acute events overnight. Patient Complains of: Cardiovascular: No: Chest Pain Respiratory: No: Shortness of Breath Physical Exam Vital Signs Date Time Temp Pulse Resp B/P (MAP) Pulse Ox O2 Delivery O2 Flow Rate FiO2 08/31/17 07:38 88 08/31/17 07:15 Nasal Cannula 5.0 08/31/17 06:55 98.6 20 167/87 (113) 91 Intake and Output 09/01/17 07:00 Intake Total 236 ml Balance 236 ml Intake Oral 236 ml Cardiovascular: Regular Rate and Rhythm Respiratory: Clear to Auscultation Extremities: No Edema Integumentary: No Cyanosis Result Diagram: 08/31/1760108/31/17601 Monitor Interpretation: Atrial Fibrillation Assessment and Plan Problems: (1) Acute diastolic heart failure Status: Acute Assessment & Plan: She did present with increased shortness of breath. She was treated with a dose of IV Lasix in the emergency department. Her shortness of breath has resolved, but her daily weight has not changed significantly. Her most recent echocardiogram (03/2017) showed a preserved ejection fraction at 71%. She is already on chronic treatment with carvedilol and Lasix. We resumed her oral Lasix today. (2) Anemia Status: Chronic Assessment & Plan: She does have a history of anemia, but her Hgb is lower than it had been previously. At this point she is asymptomatic and her Hgb is stable overnight. (3) GI bleed Assessment & Plan: Her stool is heme positive. We have previously recommended that she follow up with Dr. Medina, but she has refused colonoscopy. (4) UTI (urinary tract infection) Status: Acute Assessment & Plan: She did present with increased frequency and dysuria. She also has an elevated WBC. Her urine culture is positive for a gram negative gissel. We have her on empiric treatment with ceftriaxone. (5) CHRONIC ATRIAL FIBRILLATION Status: Chronic Assessment & Plan: She is on chronic treatment with digoxin and diltiazem. She had also been on chronic treatment with Xarelto, but this has been discontinued secondary to GI blood loss. (6) CKD (chronic kidney disease) stage 3, GFR 30-59 ml/min Status: Chronic (7) Type II diabetes mellitus Status: Chronic Assessment & Plan: She is on chronic treatment with NPH. Her glucose has been elevated since receiving steroids in the emergency department. We have increased her NPH and advanced her to sliding scale level #3. (8) Follicular non-Hodgkin's lymphoma Status: Chronic Assessment & Plan: She is followed by the cancer center, but is not currently on treatments. Exam Sepsis Risk: No Definite Risk Problem Qualifiers (1) Anemia: Anemia type: unspecified type Qualified Codes: D64.9 - Anemia, unspecified SANJU ESCALANTE DO Aug 31, 2017 10:46
[2017-08-31] MEDS ORDERED: FUROSEMIDE 40 MG TAB PO ONE (11:45)
[2017-08-31] MEDS ORDERED: cefTRIAXone 1 GM VIAL IVP SCH (13:00)
--- NOTE | 2017-08-31 15:18 | Medical Nutrition Therapy ---
Nutrition Anthropometrics Height (Inches): 67.00 Height (Calculated Centimeters: 170.972498 Weight (Pounds): 183 Weight (Calculated Kilograms): 83.064 BMI Calculated: 28.66 Arnoldo Nutrition Score: Adequate Arnoldo Nutrition Risk Score: 17 Dietary Referral Nutrition Risk Factors: Special Diet Nutrition Risk Comment: Physical Findings Physical Appearance: Overweight BMI 25-29 Skin Appearance Skin Appearance: Edema Edema Location Modifier: Both Edema Location: Ankle Type of Edema: Degree of Edema: 2+ Gastrointestinal Symptoms GI Symtoms: Tube Present: Bowel Sounds: Recent Bowel Pattern: Stool Characteristics: Nutritional Diagnosis Nutritional Risk Acuity 2: CHF w/Complication, Blood Glucose > 300mg/dl Nutritional Risk Acuity 4: Good Appetite Past Medical History: CAD, HTN, T2DM, CKD, non-Hodkins lymphoma, CHF, chronic edema, chronic UTI, hypercholesteremia Nutritional Acuity: 2-Moderate Nutrition Diagnosis: Inconsistent Carb. Intake Nutrition Etiology: Physiological Causes Nutrition Problem/Etiology/Sym: AEB BG ranging 200-400's Energy Requirement: 1790 (M- St J) Protein Requirement: 83 (1gm/kg) Fluid Requirement: 2500 (30 ml/kg) Diet Type: Diabetic Nutrition Intervention: Cont diet as ordered, Encourage intake Drug: Diuretics Nutrition Monitoring & Eval Nutrition Goals: Eat 75-100% Meal Nutrition Follow-Up: Good Intake RD Patient Assessment Time: [address] Assessment Type: RD Assessment Patient Nutrition Acuity: 2-Moderate Follow Up Date: Sep 05, 2017 Nutritional Comment: 08/31 Pt admitted for acute diastolic heart failure, anemia, UTI, and blood in stool. Notable labs include Na 135, BUN 25, Hgb 8.9, Hct 28.4, and Glu ranging 300-400s. Pt is on ADA diet with 100% average intakes. Pt arrived to ER with 2+ pitting edema in both ankles. This has since resolved with a dose of lasix, which has been discontinued. Will follow up with pt to provide diabetes education as needed. Monitor labs, intakes, etc. RAS YOUNG Aug 31, 2017 15:18
[2017-08-31] MEDS ORDERED: INSULIN HUM ISO(NPH) 100 UN/ML 3 ML VIAL SUBQ SCH (17:00)
[2017-08-31] MEDS: RIVAROXABAN 10 MG TAB PO SCH (17:01)
[2017-08-31] MEDS: INSULIN HUM REG 100 UN/ML 3 ML VIAL SC SCH (17:02)
[2017-08-31] MEDS: INSULIN HUM REG 100 UN/ML 3 ML VIAL SC PRN ×3 (17:28→21:29)
[2017-09-01] MEDS: INSULIN HUM REG 100 UN/ML 3 ML VIAL SC PRN ×3 (01:01→21:32)
[2017-09-01 03:31] VITALS: BP 160/95
[2017-09-01 06:15] LABS: PLATELET COUNT, AUTOMATED 393 K/uL (150-450)
[2017-09-01] MEDS ORDERED: PHENAZOPYRIDINE 200 MG TAB PO PRN (07:55)
[2017-09-01 07:56] VITALS: BP 169/93
[2017-09-01] MEDS: CARVEDILOL 25 MG TABLET PO SCH ×2 (08:26→21:25)
[2017-09-01] MEDS: INSULIN HUM ISO(NPH) 100 UN/ML 3 ML VIAL SUBQ SCH ×2 (08:26→17:01)
[2017-09-01] MEDS: INSULIN HUM REG 100 UN/ML 3 ML VIAL SC SCH ×3 (08:26→16:56)
[2017-09-01] MEDS: DIGOXIN 0.125 MG TAB PO SCH (08:26)
[2017-09-01] MEDS: DILTIAZEM CD 120 MG CAPCR PO SCH (08:26)
[2017-09-01] MEDS: MULTIVITAMINS TAB PO SCH (08:26)
[2017-09-01] MEDS: FUROSEMIDE 40 MG TAB PO SCH (08:26)
[2017-09-01] MEDS ORDERED: RIVAROXABAN 10 MG TAB PO SCH ×2 (09:00→17:00)
[2017-09-01 11:02] VITALS: BP 146/61
--- NOTE | 2017-09-01 11:11 | Hospitalist Progress Note ---
Subjective Progress Notes Subjective She has a bit of a scratchy throat this morning. She still feels run down. She is not reporting any SOB. She is having some urethral pain related to the Johnson. Physical Exam Vital Signs Date Time Temp Pulse Resp B/P (MAP) Pulse Ox O2 Delivery O2 Flow Rate FiO2 09/01/17 11:02 98.9 89 16 146/61 (89) 91 Nasal Cannula 2.5 Intake and Output 09/02/17 07:00 Intake Total 240 ml Output Total 175 ml Balance 65 ml Intake Oral 240 ml Output Urine Total 175 ml # Voids 2 # Bowel Movements 1 General Appearance: Alert, Awake, No Acute Distress Respiratory: Clear to Auscultation Extremities: No Edema Result Diagram: 09/01/17 0541 09/01/17540 Monitor Interpretation: Atrial Fibrillation Assessment and Plan Problems: (1) Acute diastolic heart failure Status: Acute Assessment & Plan: She did present with increased shortness of breath. She was treated with a dose of IV Lasix in the emergency department. Her shortness of breath has resolved, her weight is down about 2kg. Her most recent echocardiogram (03/2017) showed a preserved ejection fraction at 71%. She is already on chronic treatment with carvedilol and Lasix. We have resumed her oral Lasix. (2) GI bleed Assessment & Plan: Her stool is heme positive. We have recommended EGD/ colonoscopy, but she doesn't want to do it. She understands that the source of bleeding could be cancer, but she doesn't want to treat anything. Will try reducing the dose of Xarelto. (3) Anemia Status: Chronic Assessment & Plan: She does have a history of anemia, but her Hgb is lower than it had been previously. At this point she is asymptomatic and her Hgb is stable overnight. See above. (4) UTI (urinary tract infection) Status: Acute Assessment & Plan: She did present with increased frequency and dysuria. She also has an elevated WBC. Her urine culture is positive for Klebsiella Pneumonia. We have her on empiric treatment with ceftriaxone. Will remove Johnson. (5) CHRONIC ATRIAL FIBRILLATION Status: Chronic Assessment & Plan: She is on chronic treatment with digoxin and diltiazem. She had also been on chronic treatment with Xarelto. Will decrease the dose to 15mg in an attempt to balance stroke vs bleeding risk. (6) CKD (chronic kidney disease) stage 3, GFR 30-59 ml/min Status: Chronic (7) Type II diabetes mellitus Status: Chronic Assessment & Plan: She is on chronic treatment with NPH. Her glucose has been elevated since receiving steroids in the emergency department. We have increased her NPH and advanced her to sliding scale level #3. (8) Follicular non-Hodgkin's lymphoma Status: Chronic Assessment & Plan: She is followed by the cancer center, but is not currently on treatments. Exam Sepsis Risk: No Definite Risk Problem Qualifiers (1) Anemia: Anemia type: unspecified type Qualified Codes: D64.9 - Anemia, unspecified UMM APONTE MD Sep 01, 2017 11:11
[2017-09-01] MEDS ORDERED: cefTRIAXone 1 GM VIAL IVP SCH (13:00)
[2017-09-01 15:02] VITALS: BP 151/75
[2017-09-01 18:35] VITALS: BP 163/78
[2017-09-01] MEDS: ACETAMINOPHEN 325 MG TAB PO PRN (21:26)
[2017-09-01 23:32] VITALS: BP 148/75
[2017-09-02 03:07] VITALS: BP 133/55
[2017-09-02 06:15] LABS: PLATELET COUNT, AUTOMATED 360 K/uL (150-450)
[2017-09-02] MEDS: INSULIN HUM REG 100 UN/ML 3 ML VIAL SC SCH ×2 (07:50→11:37)
[2017-09-02] MEDS: INSULIN HUM ISO(NPH) 100 UN/ML 3 ML VIAL SUBQ SCH (07:50)
[2017-09-02 07:51] VITALS: BP 163/77
[2017-09-02] MEDS: CARVEDILOL 25 MG TABLET PO SCH (08:17)
[2017-09-02] MEDS: DILTIAZEM CD 120 MG CAPCR PO SCH (08:17)
[2017-09-02] MEDS: DIGOXIN 0.125 MG TAB PO SCH (08:18)
[2017-09-02] MEDS: FUROSEMIDE 40 MG TAB PO SCH (08:18)
[2017-09-02] MEDS: MULTIVITAMINS TAB PO SCH (08:18)
[2017-09-02] MEDS ORDERED: INFLUENZA VIRUS VAC 0.5 ML SYR IM ONLY ONE (09:00)
[2017-09-02] MEDS ORDERED: CEFUROXIME AXETIL 250 MG TAB PO SCH (09:50)
[2017-09-02] MEDS: INSULIN HUM REG 100 UN/ML 3 ML VIAL SC PRN (11:38)
[2017-09-02 11:39] VITALS: BP 154/77
[2017-09-02] MEDS ORDERED: CEFU250T11 PO (13:49)
--- NOTE | 2017-09-02 13:51 | Hospitalist Depart ---
Discharge Summary Reason for Hosp/Final Diag: (1) Acute diastolic heart failure Status: Acute Hospital Course & Plan: The patient presented with increased shortness of breath. She was treated with a dose of IV Lasix in the emergency department. Her shortness of breath resolved. Her weight also improved. Her most recent echocardiogram (03/2017) showed a preserved ejection fraction at 71%. She is chronically on treatment with carvedilol and Lasix. Her oral Lasix was resumed and she continued to do well. (2) GI bleed Hospital Course & Plan: Her stool was heme positive on admission. EGD/ colonoscopy were recommended, but she declined. She understood that the source of bleeding could be cancer, but she didn't want to treat anything. Xarelto was decreased to 15mg daily. Her hemoglobin remained stable. (3) Anemia Status: Chronic Hospital Course & Plan: The patient has a history of anemia, but her Hgb on admission was lower than it had been previously. She remained asymptomatic and her hemoglobin actually was improved at discharge. (4) UTI (urinary tract infection) Status: Acute Hospital Course & Plan: She did present with increased frequency and dysuria. She also had an elevated WBC. Her urine culture grew Klebsiella Pneumonia, >100 ,000 col/HPF. She was initially placed on IV ceftriaxone and transitioned to oral Ceftin for discharge. She was instructed to follow up with Dr. Melendez for a repeat urinalysis after she completes her course of antibiotics. She will have competed at 10 day course. (5) CHRONIC ATRIAL FIBRILLATION Status: Chronic Hospital Course & Plan: She is on chronic treatment with digoxin and diltiazem. She had also been on chronic treatment with Xarelto. The dose was decreased to 15mg in an attempt to balance stroke vs bleeding risk. (6) CKD (chronic kidney disease) stage 3, GFR 30-59 ml/min Status: Chronic Hospital Course & Plan: Creatinine was 1.0 on the day of discharge. (7) Type II diabetes mellitus Status: Chronic Hospital Course & Plan: She is on chronic treatment with NPH. Her glucose was initially elevated due to receiving steroids in the emergency department but improved. She will be discharged on her usual chronic medications. (8) Follicular non-Hodgkin's lymphoma Status: Chronic Hospital Course & Plan: She is followed by the cancer center, and is not currently on treatments. Departure Weight (Pounds): 179 Weight (Ounces): 2.0 Result Diagram: 09/02/17 0601 09/02/17 06 Item Value Date Time Digoxin Level 0.8 ng/ml 08/30/17 0820 Stool Occult Blood (IFOB) Positive H 08/30/17 0900 Urine Color Mary 08/30/17 0820 Urine Clarity Clear 08/30/17 0820 Urine pH 6.0 pH 08/30/17 0820 Urine Specific [place] 1.010 08/30/17 0820 Urine Protein 100 mg/dL 08/30/17 0820 Urine Glucose (UA) Negative mg/dL 08/30/17 0820 Urine Ketones Negative mg/dL 08/30/17 0820 Urine Blood Moderate 08/30/17 0820 Urine Nitrite Positive H 08/30/17 0820 Urine Bilirubin Negative 08/30/17 0820 Urine Urobilinogen 4.0 mg/dL H 08/30/17 0820 Urine Leukocyte Esterase Trace H 08/30/17 0820 Urine RBC 92 /HPF 08/30/17 0820 Urine WBC 113 /HPF 08/30/17 0820 Urine WBC Clumps Few /HPF 08/30/17 0820 Urine Squamous Epithelial Cells Few /LPF 08/30/17 0820 Urine Bacteria Moderate /HPF H 08/30/17 0820 Urine Hyaline Casts Few /LPF 08/30/17 0820 Urine Mucus None /HPF 08/30/17 0820 Prothrombin Time 21.0 seconds H 08/30/17 0820 Prothromb Time International Ratio 1.77 08/30/17 0820 Activated Partial Thromboplast Time 38 seconds H 08/30/17 0820 D-Dimer Quantitative (PE/DVT) 0.39 ug/ml 08/30/17 0820 Blood Gas Puncture Site Left brachial 08/30/17 0838 Blood Gas Patient Temperature 97.6 DEGREES 08/30/17 0838 Arterial Blood pH 7.61 *H 08/30/17 0838 Arterial Blood Partial Pressure CO2 28 mmHg L 08/30/17 0838 Arterial Blood Partial Pressure O2 129 mmHg *H 08/30/17 0838 Arterial Blood HCO3 28 mmol/L H 08/30/17 0838 Arterial Blood Oxygen Saturation 99 % 08/30/17 0838 Arterial Blood Base Excess 7.0 mmol/L 08/30/17 0838 Fausto Test Nt avail 08/30/17 0838 Oxygen Liters/Minute 3l nc 08/30/17 0838 White Blood Count 14.4 k/uL H 08/30/17 0820 Red Blood Count 3.51 M/uL L 08/30/17 0820 Hemoglobin 8.9 g/dL *L 08/30/17 0820 Hematocrit 29.1 % L 08/30/17 0820 Mean Corpuscular Volume 82.8 fL 08/30/17 0820 Mean Corpuscular Hemoglobin 25.4 pg L 08/30/17 08 Mean Corpuscular Hemoglobin Concent 30.7 g/dL L 08/30/17 0820 Red Cell Distribution Width 22.7 % H 08/30/17 0820 Platelet Count 392 K/uL 08/30/17 08 Mean Platelet Volume 8.3 fL 08/30/17 0820 Neutrophils (%) (Auto) 73.9 % H 08/30/17 0820 Lymphocytes (%) (Auto) 12.9 % L 08/30/17 0820 Monocytes (%) (Auto) 9.7 % 08/30/17 0820 Eosinophils (%) (Auto) 2.6 % 08/30/17 08 Basophils (%) (Auto) 0.9 % 08/30/17819 Nucleated RBC Relative Count (auto) 0.4 /100WBC 08/30/17 0820 Neutrophils # (Auto) 10.6 K/uL H 08/30/17 0820 Lymphocytes # (Auto) 1.9 K/uL 08/30/17 0820 Monocytes # (Auto) 1.4 K/uL H 08/30/17 0820 Eosinophils # (Auto) 0.4 K/uL 08/30/17 0820 Basophils # (Auto) 0.1 K/uL 08/30/17 0820 Nucleated RBC Absolute Count (auto) 0.06 K/uL 08/30/17 0820 Peripheral Blood Smear Yes Y/N 08/30/17819 Condition: Improved Discharge: Home, Self Care Time Spent: < 30 min Discharge Instructions Home Meds Active Scripts Cefuroxime Axetil (CEFUROXIME) 250 Mg Tablet, 250 MG PO BID, #14 TAB Prov:YARELI THURMAN MD 09/02/17 Furosemide (FUROSEMIDE) 40 Mg Tablet, 40 MG PO QDAY, #30 Prov:UMM APONTE MD 04/15/17 Diltiazem Hcl (DILTIAZEM 24HR CD) 120 Mg Cap.er.24h, 240 MG PO QDAY, #60 Prov:UMM APONTE MD 04/15/17 Carvedilol (CARVEDILOL) 25 Mg Tablet, 25 MG PO BID, #60 Prov:UMM APONTE MD 04/15/17 Digoxin (Digox) 125 Mcg Tablet, 0.125 MG PO QDAY, #30 TAB 1 Refill Prov:RAMIN THURMAN MD 02/14/17 Reported Medications Oxygen (OXYGEN) Inha, 3 L INH, L 06/18/17 Rivaroxaban 20 Mg (XARELTO 20 MG) 20 Mg Tablet, 20 MG PO QDAY, TAB 02/07/17 Lysine (LYSINE) 500 Mg Tablet, 500 MG PO DAILY 04/27/16 Cranberry Extract (CRANBERRY) 200 Mg Capsule, 200 MG PO BID, CAPSULE 11/11/14 Glucosamine Sulfate 2KCL (GLUCOSAMINE) 1,000 Mg Tablet, 1000 MG PO BID 04/14/14 Multivitamin (MULTI VITAMIN DAILY) 1 Each Tablet, 1 EACH PO QDAY 04/14/14 Insulin Human Regular (Humulin R) 100 U/Ml Vial, 5 U SC TIDCF SS FOR BS 200-250 2 UNITS, 251-300 4 UNITS, 301-350 6 UNITS, 351-400 8 UNITS, OVER 400 10 UNITS 03/04/12 Nph, Human Insulin Isophane (HUMULIN N) 100 Unit/1 Ml Vial, 45 UNIT SQ BIDBS 03/04/12 Discontinued Reported Medications Ciprofloxacin Hcl (CIPROFLOXACIN HCL) 500 Mg Tablet, 500 MG PO BID, #30 TAB 06/21/17 Acetaminophen With Codeine # 3 (TYLENOL WITH CODEINE #3 TABLET) 1 Each Tablet, 1 EACH PO Q6H Y for PAIN, #15 TAB 06/21/17 Follow up Referrals: Family Practice - In Two Weeks @ [facility] with Ag Melendez Do Diet: Diabetic Activity: As Tolerated Special Instructions: The patient is to follow up with Dr. Melendez for follow up urinalysis after she completes her course of antibiotics. Copies to: AG MELENDEZ DO Venous Thromboembolism Antithrombotics Is Pt On Any Antithrombotics?: No Problem Qualifiers (1) Anemia: Anemia type: unspecified type Qualified Codes: D64.9 - Anemia, unspecified YARELI THURMAN MD Sep 02, 2017 13:51
[2017-09-02] MEDS ORDERED: RIV10 PO (14:17)
== END 2017-09-02 14:25 | disposition home or self-care (01) | DRG 291 ==
LOC: ER 07:58 → MED 10:24
PROVIDERS: ADMIT Internal Medicine; ATTEND Internal Medicine
DX: I13.0 Hypertensive heart and chronic kidney disease with heart failure and stage 1 through stage 4 chronic kidney disease, or unspecified chronic kidney disease (principal); I50.33 Acute on chronic diastolic (congestive) heart failure; K92.1 Melena; C82.90 Follicular lymphoma, unspecified, unspecified site; N39.0 Urinary tract infection, site not specified; D68.32 Hemorrhagic disorder due to extrinsic circulating anticoagulants; E11.22 Type 2 diabetes mellitus with diabetic chronic kidney disease; N18.3 Chronic kidney disease, stage 3 (moderate); D64.9 Anemia, unspecified; I25.10 Atherosclerotic heart disease of native coronary artery without angina pectoris; E78.00 Pure hypercholesterolemia, unspecified; D63.1 Anemia in chronic kidney disease; B96.1 Klebsiella pneumoniae [K. pneumoniae] as the cause of diseases classified elsewhere; J44.9 Chronic obstructive pulmonary disease, unspecified; T38.0X5A Adverse effect of glucocorticoids and synthetic analogues, initial encounter; T45.515A Adverse effect of anticoagulants, initial encounter; D72.829 Elevated white blood cell count, unspecified; I25.2 Old myocardial infarction; Z87.440 Personal history of urinary (tract) infections; Z95.1 Presence of aortocoronary bypass graft; Z79.01 Long term (current) use of anticoagulants; Z79.4 Long term (current) use of insulin; Z88.8 Allergy status to other drugs, medicaments and biological substances
CPT/HCPCS: 36415; 36416; 36600; 71046; 80162; 81001; 82040; 82247; 82274; 82310; 82374; 82435; 82565; 82607; 82746; 82803; 82947; 82948; 83036; 83735; 83880; 84075; 84132; 84155; 84295; 84450; 84460; 84484; 84520; 85025; 85379; 85610; 85730; 87040; 87077; 87088; 87186; 93005; 94640; 96365; 96366; 96375; 99285; A4353; J0696; J1940; J2060; J2930; J3370; J7050

== ENCOUNTER 2017-11-01 12:59 | Emergency (ER) | payer MEDICARE, OTHER ==
[2017-08-31 09:26] VITALS: Wt 81.2 kg
[~2017-11-01 12:59] MED LIST changes: +CEFU250T11 PO; +RIV10 PO
--- NOTE | 2017-11-01 13:02 | ER Report ---
History and Physical Time Seen By MD: 13:02 HPI/ROS CHIEF COMPLAINT: Medication refill HISTORY OF PRESENT ILLNESS: Patient is here for referral of cefuroxime for history of bladder infections. She is unable to see her primary care provider today as they are not the office. She has been suffering with increased urinary frequency, low urine volume for the past few days. She has a history of chronic urinary tract infections. She states she is unable to provide a urine sample at this time Allergies: Coded Allergies: ketorolac (Verified Allergy, Severe, COULD NOT SEE, N&V, THOUGHT SHE WAS GOING TO , 08/30/17) ibuprofen (Verified Adverse Reaction, Unknown, DIZZINESS, NAUSEA, VOMITING , 08/30/17) Home Meds Active Scripts Phenazopyridine Hcl (PHENAZOPYRIDINE HCL) 200 Mg Tablet, 200 MG PO TID, #6 TAB 0 Refills Prov:ABNER VELÁZQUEZ MD 11/01/17 Cefuroxime Axetil (CEFUROXIME) 250 Mg Tablet, 250 MG PO TID, #21 TAB 0 Refills Prov:ABNER VELÁZQUEZ MD 11/01/17 Cefuroxime Axetil (CEFUROXIME) 250 Mg Tablet, 250 MG PO BID, #14 TAB Prov:ELIZABETH MAHMOOD CREW PERSON-BC, ONC 10/11/17 Rivaroxaban (XARELTO 10 MG TAB (OR EQUIV)) 10 Mg Tablet, 15 MG PO QDAY@1700, # 30 TAB Prov:YARELI THURMAN MD 09/02/17 Furosemide (FUROSEMIDE) 40 Mg Tablet, 40 MG PO QDAY, #30 Prov:UMM APONTE MD 04/15/17 Diltiazem Hcl (DILTIAZEM 24HR CD) 120 Mg Cap.er.24h, 240 MG PO QDAY, #60 Prov:UMM APONTE MD 04/15/17 Carvedilol (CARVEDILOL) 25 Mg Tablet, 25 MG PO BID, #60 Prov:UMM APONTE MD 04/15/17 Digoxin (Digox) 125 Mcg Tablet, 0.125 MG PO QDAY, #30 TAB 1 Refill Prov:RAMIN THURMAN MD 02/14/17 Reported Medications Oxygen (OXYGEN) Inha, 3 L INH, L 06/18/17 Lysine (LYSINE) 500 Mg Tablet, 500 MG PO DAILY 04/27/16 Cranberry Extract (CRANBERRY) 200 Mg Capsule, 200 MG PO BID, CAPSULE 11/11/14 Glucosamine Sulfate 2KCL (GLUCOSAMINE) 1,000 Mg Tablet, 1000 MG PO BID 04/14/14 Multivitamin (MULTI VITAMIN DAILY) 1 Each Tablet, 1 EACH PO QDAY 04/14/14 Insulin Human Regular (Humulin R) 100 U/Ml Vial, 5 U SC TIDCF SS FOR BS 200-250 2 UNITS, 251-300 4 UNITS, 301-350 6 UNITS, 351-400 8 UNITS, OVER 400 10 UNITS 03/04/12 Nph, Human Insulin Isophane (HUMULIN N) 100 Unit/1 Ml Vial, 45 UNIT SQ BIDBS 03/04/12 Past Medical/Surgical History Chronic urinary tract infections Hx Smoking: No Smoking Status: Never Smoker Exposure to Second Hand Smoke?: Yes (daugher smokes) Hx Substance Use Disorder: No Hx Alcohol Use: No Constitutional Vital Sign - Last 24 Hours 11/01/17 13:15 Temp 98.3 Pulse 77 B/P (MAP) 194/84 (120) Physical Exam General appearance: Alert no distress. Respiratory: Chest is non tender, lungs are clear to auscultation. Cardiac: Regular rate and rhythm [ ] Abdominal exam-mild suprapubic tenderness no guarding or rebound tenderness [DIFFERENTIAL DIAGNOSIS: After history and physical exam differential diagnosis was considered for] [ ] Medical Decision Making ED Course/Re-evaluation ED Course Patient is unable to provide urine sample this time. I did explain to the patient that if her symptoms don't improve in 24-48 hours on antibiotics that she should come into the emergency department for further evaluation. Decision to Disposition Date: Nov 01, 2017 Decision to Disposition Time: 13:16 Depart Departure Latest Vital Signs Vital Signs Date Time Temp Pulse Resp B/P (MAP) Pulse Ox O2 Delivery O2 Flow Rate FiO2 11/01/17 13:15 98.3 77 194/84 (120) Impression: Primary Impression: UTI (lower urinary tract infection) Condition: Improved Disposition: HOME OR SELF-CARE Referrals: KARIN MELENDEZ DO (PCP) 2 Days if symptoms persist New Scripts Phenazopyridine Hcl (PHENAZOPYRIDINE HCL) 200 Mg Tablet 200 MG PO TID, #6 TAB 0 Refills Prov: ABNER VELÁZQUEZ MD 11/01/17 Cefuroxime Axetil (CEFUROXIME) 250 Mg Tablet 250 MG PO TID, #21 TAB 0 Refills Prov: ABNER VELÁZQUEZ MD 11/01/17 Patient Instructions: Urinary Tract Infection in Women (DC) ABNER VELÁZQUEZ MD Nov 01, 2017 13:02
[2017-11-01 13:15] VITALS: BP 194/84
[2017-11-01] MEDS ORDERED: CEFU250T11 PO (13:19)
[2017-11-01] MEDS ORDERED: PHEN200T32 PO (13:19)
== END 2017-11-01 13:40 | disposition home or self-care (01) ==
LOC: ER 13:00
DX: N39.0 Urinary tract infection, site not specified (principal)
CPT/HCPCS: 99281

== ENCOUNTER 2017-11-27 13:00 | Outpatient (RCR) | payer MEDICARE, OTHER ==
--- NOTE | 2017-06-06 04:54 | ONCOLOGY FOLLOW UP NOTE ---
EVENT DATE: June 04, 2017 CHIEF COMPLAINT/REASON FOR VISIT Patient is a pleasant 71-year-old female with a history of SLL as well as other comorbidities that presents for follow-up. HISTORY OF PRESENT ILLNESS Elena returns. She is an extremely pleasant lady who enjoys going to [employer] annually that was diagnosed with a low-grade non-Hodgkin's lymphoma (SLL) after a CABG workup in 2012. She also has known chronic kidney disease. She requires chronic oxygen. She has hypogammaglobulinemia related to the SLL, but we can observe this. Her biggest issues continue to be related to her heart. She required a hospitalization for heart failure earlier this summer. She follows with her primary care provider, Dr. Barboza, regularly, as well as cardiology. No indications for treatment at this time. No issues with infection. No new concerning lumps or bumps. She had an MRI earlier in the summer which showed no progressive adenopathy. PAST MEDICAL/SURGICAL HISTORY 1. Cataract surgery 2. Coronary artery disease 3. Coronary artery bypass grafting in 2012, followed by Dr. Ronald Swanson 4. Hypercholesterolemia 5. Hypertension 6. History of back surgery 7. Diabetes SOCIAL HISTORY Patient currently lives in an apartment here in [place]. Has multiple children , grandchildren, and great-grandchildren here in [facility]. Her youngest great- grandchild is three years old. She enjoys reading. FAMILY HISTORY Noncontributory. REVIEW OF SYSTEMS CONSTITUTIONAL: No fevers, chills, or weight change. HEENT: No headache or vision changes. CARDIOVASCULAR: No chest pain, dyspnea on exertion, edema. RESPIRATORY: No shortness of breath, wheeze or cough. GI: No nausea, vomiting, diarrhea or constipation. : No dysuria or hematuria. MUSCULOSKELETAL: No weakness or joint pain. PSYCHIATRIC: No anxiety or depression. ENDOCRINE: No heat or cold intolerance. HEMATOLOGIC/LYMPHATIC: The patient has not noticed any concerning lumps or bumps. PHYSICAL EXAMINATION VITAL SIGNS: Blood pressure 151/66, pulse 89, respiratory rate 16, temperature 97.1 Fahrenheit, oxygen saturation 90% on 3L. Weight 83.1 kg. Pain 0/10, fatigue 5/10. GENERAL: In stable condition, resting comfortably in the chair. LYMPHATIC: No appreciable cervical, supraclavicular, axillary adenopathy. CARDIOVASCULAR: Regular rhythm today. Pulse is controlled at 89. LUNGS: Clear to auscultation bilaterally. No wheezes, crackles or rales. She does use oxygen, but no other abnormalities. ABDOMEN: Soft, nontender. No organomegaly or masses. EXTREMITIES: No clubbing, cyanosis or edema. PSYCHIATRIC: Normal mood and affect. NEUROLOGIC: Alert and oriented times three. Remainder of the physical exam otherwise unremarkable. IMPRESSION AND PLAN Patient is a very pleasant 71-year-old female with the followin. 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 2. Chronic kidney disease. 3. History of atrial fibrillation. 4. History of heart failure. She continues to have no indication for treatment for SLL. She has mild hematologic abnormalities including hypogammaglobulinemia. No issues with recurrent infection and does not require IVIG. I would have a lower threshold for antibiotics if she were to develop an infection. We will see her every three to six months. Answered all of her questions today. Billing: Return visit level 3. Total time 20 minutes, counseling time 15. MTDD
[2017-08-31 09:26] VITALS: Ht 170.2 cm; Wt 80.0 kg
[2017-09-13 14:27] VITALS: BP 154/74
[2017-09-13 14:32] LABS: PLATELET COUNT, AUTOMATED 404 K/uL (150-450)
[2017-09-24 12:55] VITALS: BP 146/65
--- NOTE | 2017-09-25 20:23 | ONCOLOGY FOLLOW UP NOTE ---
EVENT DATE: September 24, 2017 CHIEF COMPLAINT/REASON FOR VISIT Mrs. Saunders is a pleasant 72-year-old female, with a history of SLL and other comorbidities, that presents for followup. HISTORY OF PRESENT ILLNESS Elena returns. She was diagnosed with low grade non-Hodgkin's lymphoma (SLL) after a CABG workup in 2012. She also has known chronic kidney disease, respiratory disease. She is on chronic oxygen therapy. She does have hypogammaglobulinemia related to the SLL, and has been having more frequent issues with infection including a recent urinary tract infection that was difficult to treat. She received several weeks of antibiotics and she feels her symptoms are completely resolved now. Her biggest issue, however, remains her heart disease, as she has significant diastolic heart dysfunction, followed by Dr. Swanson and Dr. Barboza. She is doing okay now that she is back at home from the hospital from three weeks ago. She says that the symptoms of dysuria and signs of an infection are now all resolved. No other new issues today. PAST MEDICAL/SURGICAL HISTORY 1. Cataract surgery. 2. Coronary artery disease. 3. Coronary artery bypass grafting in [address] Ronald Swanson. 4. Hyperlipidemia. 5. Hypertension. 6. History of back surgery. 7. Diabetes.a 8. Incidentally found low grade lymphoma ( SLL). SOCIAL HISTORY Patient currently lives here in [place]. She has multiple children, grandchildren and great grandchildren here in the region. Her youngest great grandchild is now almost 4 years old. FAMILY HISTORY Noncontributory. REVIEW OF SYSTEMS CONSTITUTIONAL: No fevers, chills, weight change. The patient has a sedentary lifestyle. HEENT: No headache or vision changes. CARDIOVASCULAR: No recent chest pain, dyspnea on exertion or edema. RESPIRATORY: No shortness of breath, wheeze, cough. GASTROINTESTINAL: No nausea, vomiting, diarrhea or constipation. GENITOURINARY: Her dysuria has resolved. MUSCULOSKELETAL: No weakness. She does have some chronic pains. ENDOCRINE: No heat or cold intolerance. The remainder of the 14-point review of systems is otherwise negative. PHYSICAL EXAMINATION VITAL SIGNS: Blood pressure 146/65, pulse 65, respiratory rate 16, temperature 97.9 Fahrenheit, oxygen saturation 92% on 3L. Weight 80 kg. Pain 0/10, fatigue 0/10. GENERAL: In stable condition, resting comfortably in the chair. HEENT: Normocephalic, atraumatic. LYMPHATIC: No appreciable lymphadenopathy. EXTREMITIES: No clubbing, cyanosis or edema. Full physical exam deferred today to amount of time spent in counseling and coordination of care and discussion of her recent hospitalization. IMPRESSION AND PLAN Mrs. Saunders is a very pleasant 72-year-old female with the followin. 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 2. Chronic kidney disease. 3. History of heart failure and diastolic heart dysfunction. 4. History of atrial fibrillation. 5. Chronic respiratory disease. 6. 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 7. The patient has had some recent issues with infection, but I do not feel it would require IVIG at this point. Instead, I would have a lower threshold for antibiotics if she develops an infection. If this becomes more frequent though we will reconsider the IVIG. Continue to see her every three to six months, and we answered all of her questions today. Discussed her family's health as well, and I reiterated the importance of taking potassium, either in her diet or with supplements, to the daughter who is having significant issues with chronic kidney disease and low potassium. Billing: Return visit level 4. Total time 30 minutes, counseling time 20. MTDD
--- NOTE | 2017-10-11 08:38 | Oncology Note ---
Patient calls the clinic today to report that her bladder infection that she recently was treated for has recurred she is having dysuria, burning and difficulty with urination. She reports that Dr. Pinedo stated that she may have chronic bladder infections due to the lymphoma on her heart. She may need to be on prophylactic antibiotics. I will refill the current antibiotic that she was on for her and send it to [facility]. I did share that if symptoms did not resolve we may need to repeat a urine sample and culture with sensitivity to make sure that we are on the right antibiotic. She reports that this was the most appropriate antibiotic with the last culture that she completed. She did verbalize understanding ELIZABETH MAHMOOD HR ANALYST-BC, ONC Oct 11, 2017 08:38
[~2017-11-27] VITALS: Ht 170.2 cm; Wt 80.0 kg
[~2017-11-27 13:00] MED LIST changes: +PHEN200T32 PO
== END 2017-12-11 ==
LOC: SPU 13:00
PROVIDERS: ATTEND Internal Medicine
DX: C82.80 Other types of follicular lymphoma, unspecified site (principal); N18.9 Chronic kidney disease, unspecified; J98.9 Respiratory disorder, unspecified; D80.1 Nonfamilial hypogammaglobulinemia
CPT/HCPCS: 36415; 83615; 85025; G0463; 82040; 82247; 82310; 82374; 82435; 82565; 82947; 84075; 84132; 84155; 84295; 84450; 84460; 84520; 99212

== ENCOUNTER 2018-01-10 11:18 | Emergency (ER) | payer MEDICARE, OTHER ==
[2017-08-31 09:26] VITALS: BMI 28.7
--- NOTE | 2018-01-10 11:28 | ER Report ---
History and Physical Time Seen By MD: 11:21 (ABNER VELÁZQUEZ MD) HPI/ROS CHIEF COMPLAINT: Chest pain HISTORY OF PRESENT ILLNESS: Patient is a 72-year-old female who was diagnosed with non-Hodgkin's lymphoma who started her 1st treatment of IVIG in the transfusion center today. Approximately two [address] the way through her IVIG transfusion she began developing a severe headache chills and rigors, chest pressure. And hypertension with blood pressures in the 170s over 90's. Patient has a prior history of CABG and coronary artery disease. She denies that this discomfort feels like her "cardiac equivalent type chest pain". She denies any nausea or vomiting. She denies abdominal pain. She felt well prior to the transfusion. EKG in the transfusion center showed ST segment depression T-wave inversion in the inferior leads with rate controlled atrial fibrillation with a rate approximately 66 bpm. No prior EKGs that that time were available so the patient was transferred to the emergency department for cardiac workup. Patient did receive 12.5 mg of IV Demerol for Reiger's which have now improved. Patient is subjectively feeling at her and she denies any current chest discomfort she is reporting headache. REVIEW OF SYSTEMS: Constitutional: Reiger's no fevers Eyes: No discharge. ENT: No sore throat. Cardiovascular: Chest pressure without palpitations Respiratory: No cough, no shortness of breath. Gastrointestinal: No abdominal pain, no vomiting. Genitourinary: No hematuria. Musculoskeletal: No back pain. Skin: No rashes. Neurological: Generalized headache (ABNER VELÁZQUEZ MD) Allergies: Coded Allergies: ketorolac (Verified Allergy, Severe, COULD NOT SEE, N&V, THOUGHT SHE WAS GOING TO , 08/30/17) ibuprofen (Verified Adverse Reaction, Unknown, DIZZINESS, NAUSEA, VOMITING , 08/30/17) Home Meds Active Scripts Ciprofloxacin Hcl (CIPROFLOXACIN HCL) 500 Mg Tablet, 500 MG PO Q12H, #14 TAB Prov:SARAVANAN PADILLA MD 11/19/17 Phenazopyridine Hcl (PHENAZOPYRIDINE HCL) 200 Mg Tablet, 200 MG PO TID, #6 TAB 0 Refills Prov:ABNER VELÁZQUEZ MD 11/01/17 Rivaroxaban (XARELTO 10 MG TAB (OR EQUIV)) 10 Mg Tablet, 15 MG PO QDAY@1700, # 30 TAB Prov:YARELI THURMAN MD 09/02/17 Furosemide (FUROSEMIDE) 40 Mg Tablet, 40 MG PO QDAY, #30 Prov:UMM APONTE MD 04/15/17 Diltiazem Hcl (DILTIAZEM 24HR CD) 120 Mg Cap.er.24h, 240 MG PO QDAY, #60 Prov:UMM APONTE MD 04/15/17 Carvedilol (CARVEDILOL) 25 Mg Tablet, 25 MG PO BID, #60 Prov:UMM APONTE MD 04/15/17 Digoxin (Digox) 125 Mcg Tablet, 0.125 MG PO QDAY, #30 TAB 1 Refill Prov:RAMIN THURMAN MD 02/14/17 Reported Medications Oxygen (OXYGEN) Inha, 3 L INH, L 06/18/17 Lysine (LYSINE) 500 Mg Tablet, 500 MG PO DAILY 04/27/16 Cranberry Extract (CRANBERRY) 200 Mg Capsule, 200 MG PO BID, CAPSULE 11/11/14 Glucosamine Sulfate 2KCL (GLUCOSAMINE) 1,000 Mg Tablet, 1000 MG PO BID 04/14/14 Multivitamin (MULTI VITAMIN DAILY) 1 Each Tablet, 1 EACH PO QDAY 04/14/14 Insulin Human Regular (Humulin R) 100 U/Ml Vial, 5 U SC TIDCF SS FOR BS 200-250 2 UNITS, 251-300 4 UNITS, 301-350 6 UNITS, 351-400 8 UNITS, OVER 400 10 UNITS 03/04/12 Nph, Human Insulin Isophane (HUMULIN N) 100 Unit/1 Ml Vial, 45 UNIT SQ BIDBS 03/04/12 Hx Smoking: No Smoking Status: Never Smoker Exposure to Second Hand Smoke?: Yes (sauler smokes) Hx Substance Use Disorder: No Hx Alcohol Use: No (ABNER VELÁZQUEZ MD) Constitutional Vital Sign - Last 24 Hours 01/10/18 01/10/18 01/10/18 01/10/18 11:35 11:35 11:44 11:45 Temp 98.5 Pulse 77 Resp 24 B/P (MAP) 181/76 (111) 181/76 159/61 (93) Pulse Ox 93 O2 Delivery Nasal Cannula O2 Flow Rate 3.0 01/10/18 01/10/18 01/10/18 01/10/18 11:48 12:00 12:15 12:18 Pulse 70 66 B/P (MAP) 156/78 (104) 163/65 (97) Pulse Ox 94 01/10/18 01/10/18 01/10/18 01/10/18 12:30 12:45 12:48 13:00 Pulse 65 B/P (MAP) 163/68 (99) 163/64 (97) 159/71 (100) 01/10/18 01/10/18 01/10/18 01/10/18 13:05 13:26 13:30 13:35 Pulse 73 70 Resp 39 B/P (MAP) 164/62 (96) 161/70 (100) Pulse Ox 96 01/10/18 01/10/18 01/10/18 01/10/18 13:45 14:00 14:05 14:15 Pulse 63 Resp 17 B/P (MAP) 167/66 (99) 169/67 (101) 169/72 (104) Pulse Ox 95 (LAURORA,LINDSEY V DO) Physical Exam General Appearance: The patient is alert, has no immediate need for airway protection and no signs of toxicity. Patient is somewhat tremulous. No diaphoresis no evidence of hives or erythematous skin Eyes: Pupils equal and round no pallor or injection. ENT, Mouth: Mucous membranes are moist. Tongue appears normal signs no evidence of obstruction Respiratory: There are no retractions, lungs are clear to auscultation. Cardiovascular: Irregularly irregular rhythm that is rate controlled with a baseline heart rate of approximately 60 bpm Gastrointestinal: Abdomen is soft and non tender, no masses, bowel sounds normal. Neurological: Awake alert anxious but oriented 3 Skin: Warm and dry, no rashes. Musculoskeletal: Neck is supple non tender. Extremities are nontender, nonswollen and have full range of motion. (ABNER VELÁZQUEZ MD) Medical Decision Making Data Points Result Diagram: 01/10/18 1149 01/10/18 1149 Laboratory Hematology Test 01/10/18 11:49 01/10/18 15:31 Red Blood Count 4.49 M/uL (4.17-5.56) Mean Corpuscular Volume 76.0 fL (80.0-96.0) Mean Corpuscular Hemoglobin 23.7 pg (26.0-33.0) Mean Corpuscular Hemoglobin Concent 31.1 g/dL (32.0-36.0) Red Cell Distribution Width 21.4 % (11.5-14.5) Mean Platelet Volume 8.3 fL (7.2-11.1) Neutrophils (%) (Auto) 88.8 % (39.4-72.5) Lymphocytes (%) (Auto) 8.3 % (17.6-49.6) Monocytes (%) (Auto) 0.8 % (4.1-12.4) Eosinophils (%) (Auto) 0.9 % (0.4-6.7) Basophils (%) (Auto) 1.2 % (0.3-1.4) Nucleated RBC Relative Count (auto) 0.4 /100WBC Neutrophils # (Auto) 9.2 K/uL (2.0-7.4) Lymphocytes # (Auto) 0.9 K/uL (1.3-3.6) Monocytes # (Auto) 0.1 K/uL (0.3-1.0) Eosinophils # (Auto) 0.1 K/uL (0.0-0.5) Basophils # (Auto) 0.1 K/uL (0.0-0.1) Nucleated RBC Absolute Count (auto) 0.04 K/uL Prothrombin Time 17.0 seconds (12.0-14.4) Prothromb Time International Ratio 1.36 Sodium Level 138 mmol/L (137-145) Potassium Level 3.8 mmol/L (3.5-5.0) Chloride Level 102 mmol/L (98-107) Carbon Dioxide Level 26 mmol/L (22-31) Blood Urea Nitrogen 17 mg/dl (7-18) Creatinine 1.40 mg/dl (0.52-1.04) Glomerular Filtration Rate Calc 36.9 Random Glucose 175 mg/dl (75-110) Calcium Level 9.9 mg/dl (8.4-10.2) Total Bilirubin 0.5 mg/dl (0.2-1.3) Aspartate Amino Transf (AST/SGOT) 19 U/L (0-35) Alanine Aminotransferase (ALT/SGPT) 26 U/L (0-56) Alkaline Phosphatase 105 U/L (0-126) Total Protein 5.8 gm/dl (6.3-8.2) Albumin 3.2 g/dl (3.5-5.0) Troponin I 0.018 ng/ml Chemistry Test 01/10/18 11:49 01/10/18 15:31 White Blood Count 10.3 k/uL (4.5-11.0) Red Blood Count 4.49 M/uL (4.17-5.56) Hemoglobin 10.6 g/dL (12.0-16.0) Hematocrit 34.2 % (34.0-47.0) Mean Corpuscular Volume 76.0 fL (80.0-96.0) Mean Corpuscular Hemoglobin 23.7 pg (26.0-33.0) Mean Corpuscular Hemoglobin Concent 31.1 g/dL (32.0-36.0) Red Cell Distribution Width 21.4 % (11.5-14.5) Platelet Count 304 K/uL (150-450) Mean Platelet Volume 8.3 fL (7.2-11.1) Neutrophils (%) (Auto) 88.8 % (39.4-72.5) Lymphocytes (%) (Auto) 8.3 % (17.6-49.6) Monocytes (%) (Auto) 0.8 % (4.1-12.4) Eosinophils (%) (Auto) 0.9 % (0.4-6.7) Basophils (%) (Auto) 1.2 % (0.3-1.4) Nucleated RBC Relative Count (auto) 0.4 /100WBC Neutrophils # (Auto) 9.2 K/uL (2.0-7.4) Lymphocytes # (Auto) 0.9 K/uL (1.3-3.6) Monocytes # (Auto) 0.1 K/uL (0.3-1.0) Eosinophils # (Auto) 0.1 K/uL (0.0-0.5) Basophils # (Auto) 0.1 K/uL (0.0-0.1) Nucleated RBC Absolute Count (auto) 0.04 K/uL Prothrombin Time 17.0 seconds (12.0-14.4) Prothromb Time International Ratio 1.36 Glomerular Filtration Rate Calc 36.9 Calcium Level 9.9 mg/dl (8.4-10.2) Total Bilirubin 0.5 mg/dl (0.2-1.3) Aspartate Amino Transf (AST/SGOT) 19 U/L (0-35) Alanine Aminotransferase (ALT/SGPT) 26 U/L (0-56) Alkaline Phosphatase 105 U/L (0-126) Total Protein 5.8 gm/dl (6.3-8.2) Albumin 3.2 g/dl (3.5-5.0) Troponin I 0.018 ng/ml Coagulation Test 01/10/18 11:49 Prothrombin Time 17.0 seconds Prothromb Time International Ratio 1.36 (LINDSEY NORRIS DO) EKG/Imaging EKG Interpretation EKG today shows atrial fibrillation with ventricular rate of approximate [address]. [address] segment depression T-wave inversion in the inferior standard leads and also in V5 and V6. EKG was compared to prior EKG from 08/30/2017 which showed no significant change. Patient was in atrial fibrillation with ventricular rate of 86 bpm. She had the same appearance of ST segment depression in the inferior leads as well as the lateral leads. There is no appreciable difference between the EKG from today as compared to the EKG from August 2017. Monitor Interpretation: Atrial Fibrillation (rate controlled) Imaging FACILITY: [facility] PATIENT NAME: Elena Saunders : 1945 MR: [id number] V: [id number] EXAM DATE: ORDERING PHYSICIAN: ABNER VELÁZQUEZ TECHNOLOGIST: Location: [facility] Patient: Elena Saunders : 1945 Visit/Account:[id number] Date of Sevice: 01/10/2018 Study: Single portable view of the chest. Indication: Chest pain. Comparison study: August 30, 2017 Technique: Single AP view of the chest demonstrates no evidence of acute infiltrate. There is a left pleural effusion present. This is worsened as compared to the previous study. There is no evidence of right pleural effusion. There is no evidence of pneumothorax. There is no evidence of congestive failure. The patient is status post CABG. IMPRESSION: Worsened left pleural effusion. Report Dictated By: Roque Tellez at 01/10/2018 12:03 PM Report E-Signed By: Roque Tellez at 01/10/2018 12:05 PM WSN:[id number] (ABNER VELÁZQUEZ MD) ED Course/Re-evaluation Clinical Indication for ER IV: IV Access Decision to Disposition Date: January 10, 2018 Decision to Disposition Time: 17:00 (ABNER VELÁZQUEZ MD) ED Course 01/10/2018 4:11:51 pm Pt signed out to me pending second troponin. Pts troponin is negative. Pt feels improved. will dc Decision to Disposition Date: January 10, 2018 Decision to Disposition Time: 16:12 (LINDSEY NORRIS DO) Depart Departure Latest Vital Signs Vital Signs Date Time Temp Pulse Resp B/P (MAP) Pulse Ox O2 Delivery O2 Flow Rate FiO2 01/10/18 14:15 169/72 (104) 01/10/18 14:05 63 17 95 01/10/18 11:44 3.0 01/10/18 11:35 98.5 Nasal Cannula (LINDSEY NORRIS DO) Impression: Primary Impression: Medication reaction Additional Impression: Nonspecific chest pain Condition: Improved Referrals: KARIN MELENDEZ DO (PCP) 2 Days Patient Instructions: GENERAL ER DISCHARGE INSTRUCTIONS Additional Instructions: Your cardiac work up today was stable. Follow up with your doctor. Return as needed. Problem Qualifiers Primary Impression: Medication reaction Encounter type: initial encounter Qualified Codes: T88.7XXA - Unspecified adverse effect of drug or medicament, initial encounter ABNER VELÁZQUEZ MD January 10, 2018 11:28 LINDSEY NORRIS DO January 10, 2018 16:16
[2018-01-10] MEDS ORDERED: LORazepam 2 MG/ML VIAL IVP ONE (11:30)
[2018-01-10 11:58] LABS: PLATELET COUNT, AUTOMATED 304 K/uL (150-450)
[2018-01-10 12:01] LABS: INR 1.36
--- NOTE | 2018-01-10 12:08 | RADIOLOGY IMAGING REPORT ---
FACILITY: [facility] [place] PATIENT NAME: Elena Saunders : 1945 MR: [id number] V: [id number] EXAM DATE: ORDERING PHYSICIAN: ABNER VELÁZQUEZ TECHNOLOGIST: Location: [facility] [place] Patient: Elena Saunders : 1945 Visit/Account:[id number] Date of Sevice: 01/10/2018 Study: Single portable view of the chest. Indication: Chest pain. Comparison study: August 30, 2017 Technique: Single AP view of the chest demonstrates no evidence of acute infiltrate. There is a left pleural effusion present. This is worsened as compared to the previous study. There is no evidence of right pleural effusion. There is no evidence of pneumothorax. There is no evidence of congestiv e failure. The patient is status post CABG. IMPRESSION: Worsened left pleural effusion. Report Dictated By: Roque Tellez at 01/10/2018 12:03 PM Report E-Signed By: Roque Tellez at 01/10/2018 12:05 PM WSN:[id number]
[2018-01-10 16:17] VITALS: BP 162/71
== END 2018-01-10 16:34 | disposition home or self-care (01) ==
LOC: ER 11:20
DX: T88.7XXA Unspecified adverse effect of drug or medicament, initial encounter (principal); R07.89 Other chest pain; J90 Pleural effusion, not elsewhere classified
CPT/HCPCS: 36415; 71045; 82040; 82247; 82310; 82374; 82435; 82565; 82947; 84075; 84132; 84155; 84295; 84450; 84460; 84484; 84520; 85025; 85610; 99284

== ENCOUNTER → 2018-02-27 | Outpatient (CLI) | payer MEDICARE, OTHER ==
[2017-08-31 09:26] VITALS: BMI 28.7
[~2018-02-27] MED LIST changes: +TOLT2TAB4 PO
--- NOTE | 2018-02-27 18:02 | RADIOLOGY IMAGING REPORT ---
FACILITY: [facility] [place] PATIENT NAME: Elena Saunders : 1945 MR: [id number] V: [id number] EXAM DATE: ORDERING PHYSICIAN: MENDEZ VILLARREAL TECHNOLOGIST: Location: [facility] [place] Patient: Elena Saunders : 1945 Visit/Account:[id number] Date of Sevice: 02/27/2018 KIDNEYS Indication: Incontinence. Bladder infection. Procedure: There has been satisfactory grayscale ultrasonic evaluation of the kidneys and bladder. Comparison: No films available at this time. Note the prior CT scan cannot be from September 22, 2014 c annot be accessed. Findings: Right side: The right kidney measures 10.8 cm x 4.7 cm x 4.6 cm in its sagittal, transverse and AP dimensions. Th e right kidney shows no hydronephrosis or solid masses. There are no calculi. The resistive index is 0.75 is slightly elevated. Left side: The left kidney measures 10.8 cm x 4.4 cm x 4.7 cm in its sagittal, transverse and AP dimensions. The left kidney there are a couple foci of increased echotexture in the left kidney that could represent nonshadowing and nonobstructing calculi. Bladder: The bladder is unremarkable. Bilateral ureteral jets are identified. IMPRESSION: 1. Symmetrical size of the kidneys bilaterally without findings of hydronephrosis or mass . 2. Query tiny nonobstructing calculi in the left kidney. Correlation with prior CT imaging would be h elpful. Report Dictated By: Brad Gonzalez MD at 02/27/2018 5:55 PM Report E-Signed By: Brad Gonzalez MD at 02/27/2018 5:58 PM WSN:[id number]
== END ==
LOC: US 14:31
PROVIDERS: ATTEND Nurse Practitioner Family
DX: N20.0 Calculus of kidney (principal)
CPT/HCPCS: 76705

== ENCOUNTER 2018-03-06 08:00 | Outpatient (RCR) | payer MEDICARE, OTHER ==
[2017-08-31 09:26] VITALS: Wt 78.6 kg
[2017-12-24 12:53] VITALS: BP 152/68
[2017-12-24 13:07] LABS: PLATELET COUNT, AUTOMATED 275 K/uL (150-450)
[2017-12-31 12:28] VITALS: BP 178/74
--- NOTE | 2018-01-01 18:19 | ONCOLOGY FOLLOW UP NOTE ---
EVENT DATE: December 31, 2017 CHIEF COMPLAINT/REASON FOR VISIT Elena is a very pleasant 72-year-old female with a history of SLL and other comorbidities that presents for followup. HISTORY OF PRESENT ILLNESS Elena returns. She was diagnosed with a low grade non-Hodgkin's lymphoma (SLL) after a CABG workup in 2012. She has known chronic kidney disease, chronic pulmonary disease on O2. She does have significant hypogammaglobulinemia and we have been debating the addition of intravenous immunoglobulin to support her. Since her last visit in September, she has required numerous antibiotics and feels that she is "getting a UTI one after the other." She now has bacteria that have been resistant to Cipro and is currently on a course of Keflex. Due to this I think it is now time to start IVIG. Her IgG is extremely appropriate for replacement with a severe low level of 175 most recently. No other new issues today. No signs of progression. No concerning lumps or bumps. No fevers, chills. PAST MEDICAL/SURGICAL HISTORY 1. Cataract surgery. 2. Coronary artery disease. 3. Coronary artery bypass grafting in [address] Ronald Swanson. 4. Hyperlipidemia. 5. Hypertension. 6. History of back surgery. 7. Diabetes.a 8. Incidentally found low grade lymphoma ( SLL). 9. 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 SOCIAL HISTORY Patient currently lives here in [place]. She has multiple children, grandchildren and great grandchildren here in the region. Her youngest great grandchild is now almost 4 years old. FAMILY HISTORY Noncontributory. REVIEW OF SYSTEMS CONSTITUTIONAL: No fevers, chills. HEENT: No headache or vision changes. CARDIOVASCULAR: No chest pain, dyspnea on exertion or edema. She does live a sedentary lifestyle. RESPIRATORY: Positive shortness of breath. Positive chronic O2 use. She is on 3L chronically. GASTROINTESTINAL: No nausea, vomiting. GENITOURINARY: Her dysuria currently while on Keflex, but this has been a major issue this year along with frequency and burning. MUSCULOSKELETAL: No weakness. Positive chronic pains in her joints. ENDOCRINE: No heat or cold intolerance. PSYCHIATRIC: No anxiety or depression. HEMATOLOGIC/LYMPHATIC: No new concerning lumps or bumps. No bruising, bleeding. The remainder of the 14-point review of systems is otherwise negative. PHYSICAL EXAMINATION VITAL SIGNS: Blood pressure 178/74, pulse 67, respiratory rate 16, temperature 97.2 Fahrenheit, oxygen saturation 90% on 3L. Weight 81.5 kg. Pain 0/10, fatigue 0/10. GENERAL: In stable condition, resting comfortably in the chair. HEENT: Normocephalic, atraumatic. LYMPHATIC: No appreciable cervical, supraclavicular or axillary adenopathy. CARDIOVASCULAR: Regular rate and rhythm. She does have her scar from her prior heart surgery. RESPIRATORY: Clear to auscultation bilaterally on O2. Remainder of physical exam otherwise deferred today to amount of time spent in counseling and coordination of care. IMPRESSION AND PLAN Ms. Saunders is a pleasant 72-year-old female with the followin. 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 Active surveillance recommended. 2. Chronic kidney disease. 3. History of heart failure and diastolic heart dysfunction. 4. History of atrial fibrillation. 5. Chronic respiratory disease on O2. 6. 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 7. Frequent urinary tract infections. Continue to see her every three to six months, but we need to start IVIG due to the recurring infections. She easily meets guideline standards with an IgG of 175 at this time. This is markedly low and I believe that by adding the IVIG we will greatly reduce the risk of infection for her. I answered all of her questions about this today. Discussed the potential for side effects with this in detail today. Billing: Return visit level 4. Total time 30 minutes, counseling time 20. MTDD
[2018-01-10] VITALS (7 sets, daily range): BP systolic 124–182; BP diastolic 75–149
[2018-01-10] MEDS: diphenhydrAMINE 25 MG CAP PO PRN (08:46)
[2018-01-10] MEDS: LIDOCAINE/SOD BICARB 8.4% SYR ID PRN (08:46)
[2018-01-10] MEDS: ACETAMINOPHEN 325 MG TAB PO PRN (08:47)
[2018-01-10] MEDS: NS(*) 0.9% 500 ML BAG 500 ML IV PRN (10:44)
--- NOTE | 2018-01-10 11:13 | EKG ---
FACILITY: [facility] PATIENT NAME: ELIZABETH ROD : [id number] MR: [id number] V: [id number] EXAM DATE: ORDERING PHYSICIAN: ABNER VELÁZQUEZ TECHNOLOGIST: DAVID Patel Reason : Blood Pressure : / mmHG Vent. Rate : 065 BPM Atrial Rate : 357 BPM P-R Int : 000 ms QRS Dur : 100 ms QT Int : 372 ms P-R-T Axes : 000 107 -78 degrees QTc Int : 386 ms Atrial fibrillation Rightward axis ST and T wave abnormality, consider inferolateral ischemia or digitalis effect Abnormal ECG When compared with ECG of 30-AUG-2017 08:13, QT has shortened Confirmed by SANJU ESCALANTE ([id number]) on 01/10/2018 2:59:36 PM Referred By: EBER Confirmed By:SANJU ESCALANTE
[2018-01-30 13:42] VITALS: BP 178/61
--- NOTE | 2018-02-05 16:10 | Oncology Progress Note ---
History of Present Illness Evaluation Evaluation Date: Jan 30, 2018 Evaluation Time: 13:30 Primary Care Provider Primary Care Provider: Ag Barboza DO Accompanied by Accompanied by: Daughter Last seen by : Keila 12/31/17 Chief Complaint Chief Complaint: "I have chronic UTI" Oncology History Oncology History: - 2012 after a CABG workup was diagnosed with a low grade non-Hodgkin's lymphoma (SLL) - 12/2017 Acquired hypogammaglobulinemia favoring addition of intravenous immunoglobulin to support her. Treatment Treatment: Hospitalized [facility] in 08/30/17 for recurrent UTI he did present with increased frequency and dysuria. elevated WBC. Her urine culture grew Klebsiella Pneumonia, >100,000 col/HPF. She was initially placed on IV ceftriaxone and transitioned to oral Ceftin for discharge. 10/31/16 Examination reveals a 12 x 12 cm soft subcutaneous mass adjacent to the right scapula. favoring a lipoma. Patint had it removed on 10/09/16 She was instructed to follow up with Dr. Barboza for a repeat urinalysis after she completes her course of antibiotics. She will have competed at 10 day course. Oct 11, 2017 treated via telemdicine with refill of antibiotic prescribed for UTI HPI HPI: Mrs. Elena Saunders is a 71 year old female who has a low grade non-Hodgkin's lymphoma (SLL) diagnosed after a CABG workup in 2012. patient presents to the clininc today , accompnied by her daughter. She reports urinary frequency, urgency, and intermittent burning. As well as urinary incontinence. Patient denies fevers, chills, night sweats, cold, cole pain, SOb. She is 02 dependendt and in no apprent distress. Patient has significant PMH for recurrent UTI, diastolic heart failure and CAD. The patient states that she has had recurrent UTIs since retiring. Her mother had them as well. She had an outpatient cystoscopy with Dr. Reid on 06/21 that showed acute and chronic inflammation. Cytology was negative. She was treated with 6 weeks of Cipro. She states she started having dysuria and increased frequency 2-3 days prior to admission. She denies fever, chills, abdominal or flank pain. She did start OTC AZO for her symptoms. The patient states she showers and does not sit in a tub. She is and not sexually active. The patient also has a history of chronic diastolic dysfunction (3-4/4 on recent echo). She also has a history of CAD s/p CABG about 4 years ago. She also has chronic atrial fibrillation. She denies chest pain or diaphoresis. She has not been nauseated. She denies increased heart rate or palpitations. She states that she has noticed increased fatigue and shortness of breath with exertion over the past 2 days. She admits that she has been pushing herself to try and do more physical activity. She sleeps in a recliner due to back/hip pain. She has woken up at night acutely short of breath. She has had chronic swelling of her ankles since her CABG. She says the swelling worsens during the day and improves overnight. This has been a bit worse as well. She has seen Dr. Swanson, tripe cooker, in the past but now prefers to have Dr. Barboza, her PCP, manage her cardiac medications. Living Conditions: Lives by herself with support from her daughter. [facility] Patient History: UTI (urinary tract infection) MOTHER (CKD), Social/Occupational History Social History: Social History This is a 72 Yr old White female, she is W / and has [] Children Hx Smoking: No Smoking Status: Never Smoker Exposure to Second Hand Smoke?: Yes (daugher smokes) Allergies & Medications Allergies: Coded Allergies: ketorolac (Verified Allergy, Severe, COULD NOT SEE, N&V, THOUGHT SHE WAS GOING TO , 08/30/17) ibuprofen (Verified Adverse Reaction, Unknown, DIZZINESS, NAUSEA, VOMITING , 08/30/17) Home Meds Active Scripts Ciprofloxacin Hcl (CIPROFLOXACIN HCL) 500 Mg Tablet, 500 MG PO Q12H, #14 TAB Prov:SARAVANAN PADILLA MD 11/19/17 Phenazopyridine Hcl (PHENAZOPYRIDINE HCL) 200 Mg Tablet, 200 MG PO TID, #6 TAB 0 Refills Prov:ABNER VELÁZQUEZ MD 11/01/17 Rivaroxaban (XARELTO 10 MG TAB (OR EQUIV)) 10 Mg Tablet, 15 MG PO QDAY@1700, # 30 TAB Prov:YARELI THURMAN MD 09/02/17 Furosemide (FUROSEMIDE) 40 Mg Tablet, 40 MG PO QDAY, #30 Prov:UMM APONTE MD 04/15/17 Diltiazem Hcl (DILTIAZEM 24HR CD) 120 Mg Cap.er.24h, 240 MG PO QDAY, #60 Prov:UMM APONTE MD 04/15/17 Carvedilol (CARVEDILOL) 25 Mg Tablet, 25 MG PO BID, #60 Prov:UMM APONTE MD 04/15/17 Digoxin (Digox) 125 Mcg Tablet, 0.125 MG PO QDAY, #30 TAB 1 Refill Prov:RAMIN THURMAN MD 02/14/17 Reported Medications Tolterodine Tartrate (DETROL) 2 Mg Tablet, 2 MG PO DAILY X 7 days 01/30/18 Sulfamethoxazole/Trimet 800-160 Mg Tab (BACTRIM DS TABLET) 1 Each Tablet, 1 TAB PO DAILY, TAB X 7 days 01/30/18 Oxygen (OXYGEN) Inha, 3 L INH, L 06/18/17 Lysine (LYSINE) 500 Mg Tablet, 500 MG PO DAILY 04/27/16 Cranberry Extract (CRANBERRY) 200 Mg Capsule, 200 MG PO BID, CAPSULE 11/11/14 Glucosamine Sulfate 2KCL (GLUCOSAMINE) 1,000 Mg Tablet, 1000 MG PO BID 04/14/14 Multivitamin (MULTI VITAMIN DAILY) 1 Each Tablet, 1 EACH PO QDAY 04/14/14 Insulin Human Regular (Humulin R) 100 U/Ml Vial, 5 U SC TIDCF SS FOR BS 200-250 2 UNITS, 251-300 4 UNITS, 301-350 6 UNITS, 351-400 8 UNITS, OVER 400 10 UNITS 03/04/12 Nph, Human Insulin Isophane (HUMULIN N) 100 Unit/1 Ml Vial, 45 UNIT SQ BIDBS 03/04/12 Review of Systems Constitution: Positive for Recent Infection (UTI) HEENT: No EARS: Tinnitus, No NOSE: Nasal Discharge, No THROAT: Sore Throat, No EYES: Dipolpia, No EARS: Hearing Problems, No NOSE: Epistaxis, No THROAT: Mouth Ulcers, No EYES: Vision Change, No OTHER Respiratory: Cough Cardiovascular: Chest Pain Gastrointestinal: Nausea Gentiourinary: Dysuria, Nocturia Musculoskeletal: Muscle Pain Skin: Lumps (Right scapula lipoma) Psychiatric: No Anxiety, No Depression, No Other Vital Signs Vital Signs Temperature: 98.4 Pulse: 75 BP Systolic: 178 BP Diastolic: 61 Respiratory Rate: 16 O2 SAT: 92 O2 Delivery: Room Air Height (feet) 5 Height (inches) 67.00 Weight lb: 179 Weight oz: 2.0 Weight Kg (Raffi): 88.56 Pain: 8 Physical Exam General: Looks Stable, Well Developed HEENT: HEAD:Atraumatic Neck: Supple Lungs: Clear to Auscultation, Percussion Bilaterally Heart: Regular Rate and Rhythm Abdomen: Soft and Nontender, No Hepatosplenomegaly, No Masses, No Other Extremities: Cyanosis Lymphatics: No Peripheral Lymphadenopathy, No Other Psychiatric: Mood appears normal, Affect appears normal Skin: No Skin Rashes, No Bruising, No Purpura, No Moist Desquamation, No Dry Desquamation, No Errythema, No Mild Errythema, No Moderate Errythema, No Severe Errythema, No Induration, No Other Breast: No No Masses, No No Nipple Discharge, No No Skin Changes, No Other Assessment Assessment: Mrs. Elena Saunders is a 71 year old female who has a low grade non-Hodgkin's lymphoma (SLL) diagnosed after a CABG workup in 2012. with significant PMH for recurrent UTI, diastolic heart failure, CAD, and 02 dependent. 1. 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 Active surveillance recommended. Initiate IVIG. She easily meets guideline standards with an IgG of 175 as previously recomended by Dr. Padilla by adding the IVIG we will greatly reduce the risk of infection for her. 2. Chronic kidney disease. 3. History of heart failure and diastolic heart dysfunction. 4. History of atrial fibrillation. 5. Chronic respiratory disease 02 dependent. 6. 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 7. Frequent urinary tract infections. Patient reports that she was followed by urology aprox three months ago, where a PVR was done and was negative. Due to failure of conventional recommend treatment, Abx ppfx and a renal U/S maybe ordered to r/o any abcess or scarring. 8. Mixed urinary incontinence due to overactive blader and underlining chronic kidney disease. She reports continous dribling and numeorus pad changes thorughout the day- Detrol was Rx today will asess for response on next visit. CHRONIC 1. Cataract surgery. 2. Coronary artery disease. 3. Coronary artery bypass grafting in [address] Ronald Swanson. 4. Hyperlipidemia. 5. Hypertension. 6. History of back surgery. 7. Diabetes.a 8. Incidentally found low grade lymphoma ( SLL). 9. 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 Plan Plan: - Continue IVIG due to recurrent infections. - Continue active surveillance f/u with a Provider every three to six months -Complete course of bactrim 1 tab PO x 7 days -Initiate detrol 2mg PO daily x 7 days - will re-evalute symptoms on next infusion visit - Probiotic yogurt BID - oysterman RX of Abx ppfx and a renal U/S maybe appropriate for posible abcess or scarring. -Patient to call clinic with any concerns TIME SPENT: 20 minutes >15 minutes incudes but not limited to discussion, counselling and co-ordination~ of care. Discussion with other health care providers, record review, review of lab work, diagnostic tests. Plan discussed extensively with patient, and spouse or beam saw operator. All the questions answered today. Thank you for the opportunity to be involved in the care of Mrs. Chip quiroga. Billing: Return visit level 3. MENDEZ VILLARREAL, ONC Feb 05, 2018 16:10
[2018-02-06] VITALS (11 sets, daily range): BP systolic 102–184; BP diastolic 63–116
[2018-02-06] MEDS: ACETAMINOPHEN 325 MG TAB PO PRN (08:48)
[2018-02-06] MEDS: diphenhydrAMINE 25 MG CAP PO PRN (08:48)
[2018-02-06 08:50] LABS: PLATELET COUNT, AUTOMATED 340 K/uL (150-450)
[2018-02-06] MEDS: NS(*) 0.9% 500 ML BAG 500 ML IV PRN (08:51)
[2018-02-06] MEDS: LIDOCAINE/SOD BICARB 8.4% SYR ID PRN (08:51)
--- NOTE | 2018-02-22 17:44 | Oncology Note ---
[facility] Patient History: UTI (urinary tract infection) MOTHER (CKD), Social/Occupational History Social History: Social History This is a 72 Yr old White female, she is W / and has [] Children Hx Smoking: No Smoking Status: Never Smoker Exposure to Second Hand Smoke?: Yes (daugher smokes) Allergies & Medications Allergies: Coded Allergies: ketorolac (Verified Allergy, Severe, COULD NOT SEE, N&V, THOUGHT SHE WAS GOING TO , 08/30/17) ibuprofen (Verified Adverse Reaction, Unknown, DIZZINESS, NAUSEA, VOMITING , 08/30/17) Home Meds Active Scripts Phenazopyridine Hcl (PHENAZOPYRIDINE HCL) 200 Mg Tablet, 200 MG PO TID, #6 TAB 0 Refills Prov:ABNER VELÁZQUEZ MD 11/01/17 Rivaroxaban (XARELTO 10 MG TAB (OR EQUIV)) 10 Mg Tablet, 15 MG PO QDAY@1700, # 30 TAB Prov:YARELI THURMAN MD 09/02/17 Furosemide (FUROSEMIDE) 40 Mg Tablet, 40 MG PO QDAY, #30 Prov:UMM APONTE MD 04/15/17 Diltiazem Hcl (DILTIAZEM 24HR CD) 120 Mg Cap.er.24h, 240 MG PO QDAY, #60 Prov:UMM APONTE MD 04/15/17 Carvedilol (CARVEDILOL) 25 Mg Tablet, 25 MG PO BID, #60 Prov:UMM APONTE MD 04/15/17 Digoxin (Digox) 125 Mcg Tablet, 0.125 MG PO QDAY, #30 TAB 1 Refill Prov:RAMIN THURMAN MD 02/14/17 Reported Medications Oxygen (OXYGEN) Inha, 3 L INH, L 06/18/17 Lysine (LYSINE) 500 Mg Tablet, 500 MG PO DAILY 04/27/16 Cranberry Extract (CRANBERRY) 200 Mg Capsule, 200 MG PO BID, CAPSULE 11/11/14 Glucosamine Sulfate 2KCL (GLUCOSAMINE) 1,000 Mg Tablet, 1000 MG PO BID 04/14/14 Multivitamin (MULTI VITAMIN DAILY) 1 Each Tablet, 1 EACH PO QDAY 04/14/14 Insulin Human Regular (Humulin R) 100 U/Ml Vial, 5 U SC TIDCF SS FOR BS 200-250 2 UNITS, 251-300 4 UNITS, 301-350 6 UNITS, 351-400 8 UNITS, OVER 400 10 UNITS 03/04/12 Nph, Human Insulin Isophane (HUMULIN N) 100 Unit/1 Ml Vial, 45 UNIT SQ BIDBS 03/04/12 Mrs. Elena Saunders is a 71 year old female who has a low grade non-Hodgkin's lymphoma (SLL) diagnosed after a CABG workup in 2012. patient presents to the clinic today , accompanied by her daughter. She reports urinary frequency, urgency, and intermittent burning. As well as urinary incontinence. Patient denies fevers, chills, night sweats, cold, chest pain, SOB. She is 02 dependent and in no apparent distress. Patient has significant PMH for recurrent UTI, diastolic heart failure and CAD. Patient states that she has had recurrent UTIs since retiring. Her mother had them as well. She had an outpatient cystoscopy with Dr. Reid on 06/21 that showed acute and chronic inflammation. Cytology was negative. She was treated with 6 weeks of Cipro Patient presents to center today complaining of urinary burning g ,frequency, and retention. 1. CHRONIC RECURRENT UTI. PLAN Bactrim Ds 1 tab Po daily #14 days. -Arrange for renal U/S to rule out abcess, or strictures. - Establish care with Dr. Her PCP per patients daughter's request, once U/S results report obtained. - f/u with Dr. Pedraza. TIME SPENT: 20 minutes 15 > minutes includes but not limited to discussion, counselling and co-ordination~ of care. Discussion with other health care providers, record review, review of lab work, diagnostic tests. Plan discussed extensively with patient and daughter . All the questions answered today. Thank you for the opportunity to be involved in the care of MS. Chip Parker. Billing Level: Return visit 3 MENDEZ VILLARREAL, ONC Feb 22, 2018 17:43
[~2018-03-06 08:00] MED LIST changes: +DEXTROSE 5%(*) 100 ML BAG 100 ML IVPB PRN; +HYDROCORTISONE 100 MG/2 ML IVP ONE; +MEPERIDINE 50 MG/ML SYR IVP ONE; +MEPERIDINE 50 MG/ML SYR ONE; +NS(*) 0.9% 100 ML BAG 100 ML IVPB PRN; +[UNRECOGNIZED DRUG - MIXTURE] IV ONE; +[UNRECOGNIZED DRUG - MIXTURE] IV ONE; +diphenhydrAMINE 50 MG/ML VIAL IVP ONE
[2018-03-06 08:27] VITALS: BP 167/105
[2018-03-06] MEDS: LIDOCAINE/SOD BICARB 8.4% SYR ID PRN (08:44)
[2018-03-06] MEDS: NS(*) 0.9% 500 ML BAG 500 ML IV PRN (08:45)
[2018-03-06 08:52] LABS: PLATELET COUNT, AUTOMATED 270 K/uL (150-450)
[2018-03-06] MEDS: ACETAMINOPHEN 325 MG TAB PO PRN (08:53)
[2018-03-06] MEDS: diphenhydrAMINE 25 MG CAP PO PRN (08:53)
[2018-03-06] MEDS ORDERED: DEXAMETHASONE SOD PHOS 10MG/ML IVP PRN (08:55)
[2018-03-06] MEDS ORDERED: IMMU GLOB(IGG) 20GR/200ML VIAL 20 GR, IMMU GLOB(IGG) 10GR/100ML VIAL 10 GR in EMPTY EVA... IVPB ONE (10:00)
[2018-03-06 10:11] VITALS: BP 170/86
[2018-03-06 10:53] VITALS: BP 173/92
[2018-03-06 11:31] VITALS: BP 183/89
[2018-03-06 13:03] VITALS: BP 169/74
--- NOTE | 2018-03-06 14:16 | Oncology Progress Note ---
History of Present Illness Evaluation Evaluation Date: Mar 06, 2018 Evaluation Time: 13:20 Primary Care Provider Primary Care Provider: Ag Barboza DO Accompanied by Accompanied by: Self Last seen by : Keila 12/31/17 Chief Complaint Chief Complaint Recurrent UTIs Oncology History Oncology History 2012 after a CABG workup was diagnosed with a low grade non-Hodgkin's lymphoma (SLL) - 12/2017 Acquired hypogammaglobulinemia favoring addition of intravenous immunoglobulin to support her. Treatment Treatment - 02/2018 Currently on IVIG 175 Hospitalized [facility] in 08/30/17 for recurrent UTI he did present with increased frequency and dysuria. elevated WBC. Her urine culture grew Klebsiella Pneumonia, >100,000 col/HPF. She was initially placed on IV ceftriaxone and transitioned to oral Ceftin for discharge. 10/31/16 Examination reveals a 12 x 12 cm soft subcutaneous mass adjacent to the right scapula. favoring a lipoma. Patient had it removed on 10/09/16 She was instructed to follow up with Dr. Barboza for a repeat urinalysis after she completes her course of antibiotics. She will have competed at 10 day course. Oct 11, 2017 treated via telemdicine with refill of antibiotic prescribed for UTI January 2018. Course of Bactrim x 3 weeks treated for UTI March 06, 2018 PPfx Bactrim single strength three times per week, plus topical 0.01% estriol. for UTI HPI HPI Mrs. Elena Saunders is a 71 year old female who has a low grade non-Hodgkin's lymphoma (SLL) diagnosed after a CABG workup in 2012. Currently on IVIG treatment. Patient presents to the clinic today for her IVIG infusion. She reports being in her usual state of dayami with the major limitation of chronic UTI. She reports urinary frequency, urgency, and moderate improvement on her intermittent burning as well as occasional urinary incontinence. Patient denies fevers, chills, night sweats, cold, chest pain, SOB. She is 02 dependent and in no apparent distress. Patient has significant PMH for recurrent UTI, diastolic heart failure and CAD. Denies changes in bowel, bladder pattern, or appetite. Living Conditions Lives by herself with support from her daughter. Diagnostic Studies Result Diagram: 03/06/18 0837 03/06/18 0837 PMH Patient History: UTI (urinary tract infection) MOTHER (CKD), Social/Occupational History Social History: Social History This is a 72 Yr old White female, she is W / and has [] Children Hx Smoking: No Smoking Status: Never Smoker Exposure to Second Hand Smoke?: Yes (daugher smokes) Allergies & Medications Allergies: Coded Allergies: ketorolac (Verified Allergy, Severe, COULD NOT SEE, N&V, THOUGHT SHE WAS GOING TO , 08/30/17) ibuprofen (Verified Adverse Reaction, Unknown, DIZZINESS, NAUSEA, VOMITING , 08/30/17) Home Meds Active Scripts Phenazopyridine Hcl (PHENAZOPYRIDINE HCL) 200 Mg Tablet, 200 MG PO TID, #6 TAB 0 Refills Prov:ABNER VELÁZQUEZ MD 11/01/17 Rivaroxaban (XARELTO 10 MG TAB (OR EQUIV)) 10 Mg Tablet, 15 MG PO QDAY@1700, # 30 TAB Prov:YARELI THURMAN MD 09/02/17 Furosemide (FUROSEMIDE) 40 Mg Tablet, 40 MG PO QDAY, #30 Prov:UMM APONTE MD 04/15/17 Diltiazem Hcl (DILTIAZEM 24HR CD) 120 Mg Cap.er.24h, 240 MG PO QDAY, #60 Prov:UMM APONTE MD 04/15/17 Carvedilol (CARVEDILOL) 25 Mg Tablet, 25 MG PO BID, #60 Prov:UMM APONTE MD 04/15/17 Digoxin (Digox) 125 Mcg Tablet, 0.125 MG PO QDAY, #30 TAB 1 Refill Prov:RAMIN THURMAN MD 02/14/17 Reported Medications Oxygen (OXYGEN) Inha, 3 L INH, L 06/18/17 Lysine (LYSINE) 500 Mg Tablet, 500 MG PO DAILY 04/27/16 Cranberry Extract (CRANBERRY) 200 Mg Capsule, 200 MG PO BID, CAPSULE 11/11/14 Glucosamine Sulfate 2KCL (GLUCOSAMINE) 1,000 Mg Tablet, 1000 MG PO BID 04/14/14 Multivitamin (MULTI VITAMIN DAILY) 1 Each Tablet, 1 EACH PO QDAY 04/14/14 Insulin Human Regular (Humulin R) 100 U/Ml Vial, 5 U SC TIDCF SS FOR BS 200-250 2 UNITS, 251-300 4 UNITS, 301-350 6 UNITS, 351-400 8 UNITS, OVER 400 10 UNITS 03/04/12 Nph, Human Insulin Isophane (HUMULIN N) 100 Unit/1 Ml Vial, 45 UNIT SQ BIDBS 03/04/12 Review of Systems Constitution: Positive for Recent Infection (UTI) HEENT: No EARS: Tinnitus, No NOSE: Nasal Discharge, No THROAT: Sore Throat, No EYES: Dipolpia, No EARS: Hearing Problems, No NOSE: Epistaxis, No THROAT: Mouth Ulcers, No EYES: Vision Change, No OTHER Respiratory: Cough Cardiovascular: Chest Pain Gastrointestinal: Nausea Gentiourinary: Dysuria, Nocturia Musculoskeletal: Muscle Pain Skin: Lumps (Right scapula lipoma) Psychiatric: No Anxiety, No Depression, No Other Vital Signs Vital Signs Temperature: 98.0 Pulse: 66 BP Systolic: 169 BP Diastolic: 74 Respiratory Rate: 16 O2 SAT: 97 O2 Delivery: Room Air Height (feet) 5 Height (inches) 67.00 Weight lb: 179 Weight oz: 2.0 Weight Kg (Raffi): 88.56 Pain: 0 Physical Exam General: Looks Stable, Well Developed HEENT: HEAD:Atraumatic Neck: Supple Lungs: Clear to Auscultation, Percussion Bilaterally Heart: Regular Rate and Rhythm Abdomen: Soft and Nontender, No Hepatosplenomegaly, No Masses, No Other Extremities: Cyanosis Lymphatics: No Peripheral Lymphadenopathy, No Other Psychiatric: Mood appears normal, Affect appears normal Skin: No Skin Rashes, No Bruising, No Purpura, No Moist Desquamation, No Dry Desquamation, No Errythema, No Mild Errythema, No Moderate Errythema, No Severe Errythema, No Induration, No Other Breast: No No Masses, No No Nipple Discharge, No No Skin Changes, No Other Assessment and Plan Assessment and Plan Mrs. Elena Saunders is a 71 year old female who has a low grade non-Hodgkin's lymphoma (SLL) diagnosed after a CABG workup in 2012. Currently on IVIG treatment. Patient presents to the clinic today for her IVIG infusion. She reports being in her usual state of dayami with the major health limitation of chronic UTI. She reports urinary frequency, urgency, and moderate improvement on her intermittent burning. As well as occasional urinary incontinence. Patient denies fevers, chills, night sweats, cold, chest pain, SOB. She is 02 dependent and in no apparent distress. Patient has significant PMH for recurrent UTI, diastolic heart failure and CAD. DIAGNOSTIC DATA CBC,CMP within normal limits. see [facility]. Renal U/S 02/27/2018 IMPRESSION: 1. Symmetrical size of the kidneys bilaterally without findings of hydronephrosis or mass. 2. Query tiny nonobstructing calculi in the left kidney. Correlation with prior CT imaging would be helpful. Patient states that she has had recurrent UTIs since retiring approximately 8 years ago.. Her mother had them as well. She had an outpatient cystoscopy with Dr. Reid on 06/21 that showed acute and chronic inflammation. Cytology was negative. She was treated with 6 weeks of Cipro. 1. 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 Active surveillance recommended. Initiate IVIG. She easily meets guideline standards with an IgG of 175 as previously recommended by Dr. Pedraza by adding the IVIG we will greatly reduce the risk of infection for her. 2. Chronic kidney disease. 3. History of heart failure and diastolic heart dysfunction. 4. History of atrial fibrillation. 5. Chronic respiratory disease 02 dependent. 6. 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 7. Frequent urinary tract infections. Renal u/S done on 02/27/18 , was negative for any abscess, hydronephrosis or scarring Patient reports that she was followed by urology aprox three months ago, where a PVR was done and was negative. Due to failure of conventional recommend treatment, Abx ppfx and some estriol will be implemented today. 8. Mixed urinary incontinence due to overactive blader and underlining chronic kidney disease. She reports continuos dribbling and numerous pad changes throughout the day- Detrol was Rx on last encounter, patient informs me that she decided not to use Medication. CHRONIC well controlled under medication management and PCP 1. Cataract surgery. 2. Coronary artery disease. 3. Coronary artery bypass grafting in [address] Ronald Swanson. 4. Hyperlipidemia. 5. Hypertension. 6. History of back surgery. 7. Diabetes.a 8. Incidentally found low grade lymphoma ( SLL). 9. 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 PLAN #1 recurrent UTIs in the setting of immunocompromise with a strong family history of UTIs and strong history of recurrent UTIs currently patient, reports significant improvement in burning, but persistent urgency, and frequency. we will prescribe Abx ppfx. 1 Bactrim single strength full and 400/80 mg by mouth 3 times per week s and Saturdays #30 pills, take one tablet by mouth ON DAYS indicated. ContinueProbiotic yogurt BID #2 estriol cream 0.01% milligrams applied to the vaginal area nightly for 2 weeks. Risk factors pertaining to coronary disease explained in detail to patient. #3 patient to call clinic by next 03/13/18. Symptom management update. #4 staff radiologist to check on patient symptom management within a week to check on response to topical estriol. #5 IVIG administered today , patient tolerated very well without any infusion reactions. #6 Continue IVIG due to recurrent infections. -#7 Continue active surveillance f/u with a MD/SAMANTHA every three to six months. #8 Patient to see MD/SAMANTHA for follow up treatment management in 4 weeks. -Education, patient instructed to go to ER immediately and or call Clinic if any Shortness of Breath, Temp >/=100.4, fevers, chills, cardiac type chest pain , bleeding, excessive bruising, headaches, blurry vision, dizziness, abdominal pain, difficulty swallowing, urinary retention,and pain unrelieved by medication. TIME SPENT: 30 minutes 25 > minutes includes but not limited to discussion, counselling and co-ordination~ of care. Discussion with other health care providers, record review, review of lab work, diagnostic tests. Plan discussed extensively with patient. All the questions answered today. Thank you for the opportunity to be involved in the care of Elena Saunders. Billing Level: Return visit 4 MENDEZ VILLARREAL, ONC Mar 06, 2018 14:16
== END 2018-03-24 ==
LOC: SPU 08:00
PROVIDERS: ATTEND Internal Medicine
DX: C82.80 Other types of follicular lymphoma, unspecified site (principal); N18.9 Chronic kidney disease, unspecified; J98.9 Respiratory disorder, unspecified; Z99.81 Dependence on supplemental oxygen; D80.1 Nonfamilial hypogammaglobulinemia; Z87.440 Personal history of urinary (tract) infections; R06.02 Shortness of breath; N39.0 Urinary tract infection, site not specified; Z79.4 Long term (current) use of insulin; I12.9 Hypertensive chronic kidney disease with stage 1 through stage 4 chronic kidney disease, or unspecified chronic kidney disease; E11.22 Type 2 diabetes mellitus with diabetic chronic kidney disease
CPT/HCPCS: 36415; 81001; 82784; 83615; 85025; 87077; 87088; 87186; 96365; 96366; 96367; 96375; A9270; G0463; J1100; J1459; J1720; J2175; J7040; Q0163; 82040; 82247; 82310; 82374; 82435; 82565; 82947; 84075; 84132; 84155; 84295; 84450; 84460; 84520; 93005; 99212; J1200; J7050

== ENCOUNTER 2018-06-05 08:47 | Outpatient (RCR) | payer MEDICARE, OTHER ==
[2017-08-31 09:26] VITALS: Wt 77.1 kg
[2018-04-01 13:08] VITALS: BP 166/74
--- NOTE | 2018-04-02 15:43 | ONCOLOGY FOLLOW UP NOTE ---
EVENT DATE: April 01, 2018 CHIEF COMPLAINT/REASON FOR VISIT Ms. Saunders is a pleasant, 72-year-old female with a history of SLL and other comorbidities who presents for followup. HISTORY OF PRESENT ILLNESS Elena returns. She was diagnosed with a low-grade non-Hodgkin lymphoma (SLL) after a CABG workup in 2012. She has known chronic kidney disease and chronic pulmonary disease, on chronic O2. She has significant hypogammaglobulinemia with an IgG level severely low at 175 and reinitiated IVIG. Given the frequent infections and profoundly low immunoglobulin, I anticipate she needs IVIG indefinitely. She had issues with reactions to the IVIG in the past, and we now have a better regimen to help with this. Her most recent dose was without reaction. No signs of progression of her disease. No concerning lumps or bumps. No fevers or chills. No other symptoms of concern today. PAST MEDICAL/SURGICAL HISTORY 1. Cataract surgery. 2. Coronary artery disease. 3. Coronary artery bypass grafting in 2012, followed by Dr. Ronald Swanson. 4. Hyperlipidemia. 5. Hypertension. 6. History of back surgery. 7. Diabetes. 8. 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 9. 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 SOCIAL HISTORY Patient currently lives here in [place]. She has multiple children, grandchildren, and great-grandchildren here in the region. Her youngest great- grandchild is now almost 4 years old. FAMILY HISTORY Noncontributory. REVIEW OF SYSTEMS CONSTITUTIONAL: No fevers or chills. Recent issues with infection. IMMUNOLOGIC: No issues with UTI recently. CARDIOVASCULAR: No chest pain, dyspnea on exertion, or edema. She does live a sedentary lifestyle. RESPIRATORY: Positive shortness of breath at rest at times. Positive chronic O2 use. GASTROINTESTINAL: No nausea or vomiting. GENITOURINARY: No dysuria, hematuria, or signs of infection currently. MUSCULOSKELETAL: No weakness. Positive chronic osteoarthritis. ENDOCRINE: No heat or cold intolerance. PSYCHIATRIC: No anxiety or depression. HEMATOLOGIC/LYMPHATIC: No new concerning lumps or bumps. Remainder of 14-point review of systems otherwise negative. PHYSICAL EXAMINATION VITAL SIGNS: Blood pressure 166/74, pulse 69, respiratory rate 16, temperature 96.7 Fahrenheit, oxygen saturation 92% on 2.5L. Weight 77.3 kg. Pain zero/10. Fatigue zero/10. GENERAL: Stable condition, resting comfortably in the chair. HEENT: Normocephalic, atraumatic. LYMPHATIC: No appreciable cervical, supraclavicular, or axillary adenopathy. CARDIOVASCULAR: Regular rate and rhythm. LUNGS: Clear. ABDOMEN: Soft, nontender. No organomegaly or masses. EXTREMITIES: No clubbing, cyanosis, or edema. Remainder of physical exam otherwise unremarkable. IMPRESSION AND PLAN Ms. Saunders is a pleasant, 72-year-old female with the followin. Low grade non-Hodgkin lymphoma, small lymphocytic lymphoma. Continue active surveillance. 2. 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 Her baseline IgG was severely low at 175. She is not getting an adequate bump with intravenous immunoglobulin, and so I will increase the dose slightly, but continue the current frequency. 3. History of heart failure and diastolic heart dysfunction. 4. Atrial fibrillation history. 5. Chronic obstructive pulmonary disease, on chronic oxygen use. I answered all her questions today. Continue intravenous gammaglobulin indefinitely. No signs of need for treatment against her small lymphocystic lymphoma with immune therapy or otherwise. BILLING Return visit level 4. Total time 30 minutes, counseling time 20. MTDD
[2018-04-03 09:28] VITALS: BP 167/80
[2018-04-03] MEDS: LIDOCAINE/SOD BICARB 8.4% SYR ID PRN (09:35)
[2018-04-03] MEDS: NS(*) 0.9% 500 ML BAG 500 ML IV PRN (09:36)
[2018-04-03 09:38] LABS: PLATELET COUNT, AUTOMATED 290 K/uL (150-450)
[2018-04-03] MEDS: diphenhydrAMINE 25 MG CAP PO PRN (10:08)
[2018-04-03] MEDS: ACETAMINOPHEN 325 MG TAB PO PRN (10:08)
[2018-04-03] MEDS: DEXAMETHASONE SOD PHOS 10MG/ML IVP PRN (10:09)
[2018-04-03 15:23] VITALS: BP 176/73
[2018-05-08 09:28] VITALS: BP 185/97
[2018-05-08] MEDS: LIDOCAINE/SOD BICARB 8.4% SYR ID PRN (09:40)
[2018-05-08 09:41] LABS: PLATELET COUNT, AUTOMATED 260 K/uL (150-450)
[2018-05-08] MEDS: ACETAMINOPHEN 325 MG TAB PO PRN (09:41)
[2018-05-08] MEDS: diphenhydrAMINE 25 MG CAP PO PRN (09:41)
[2018-05-08] MEDS: DEXAMETHASONE SOD PHOS 10MG/ML IVP PRN (09:41)
[2018-05-08 14:23] VITALS: BP 195/80
[~2018-06-05 08:47] MED LIST changes: +AMLO-111 PO; -AMLO-96 PO; +ATOR20TA22 PO; -HYDROCORTISONE 100 MG/2 ML IVP ONE; +IMMU GLOB(IGG) 20GR/200ML VIAL 200 ML IVPB ONE; +IMMU GLOB(IGG) 20GR/200ML VIAL 40 GR in EMPTY EVACUATED CONT 0 ML IVPB ONE; -LOSA100T67 PO; +LOSA100T69 PO; -LOSA25TA50 PO; +LOSA25TA52 PO; -LOSA50TA72 PO; +LOSA50TA74 PO; -MEPERIDINE 50 MG/ML SYR IVP ONE; -MEPERIDINE 50 MG/ML SYR ONE; +PUMP300C PO; -[UNRECOGNIZED DRUG - MIXTURE] IV ONE; -[UNRECOGNIZED DRUG - MIXTURE] IV ONE; -diphenhydrAMINE 50 MG/ML VIAL IVP ONE
[2018-06-05 08:57] VITALS: BP 176/88
[2018-06-05] MEDS: LIDOCAINE/SOD BICARB 8.4% SYR ID PRN (09:15)
[2018-06-05] MEDS: NS(*) 0.9% 500 ML BAG 500 ML IV PRN (09:15)
[2018-06-05 09:26] LABS: PLATELET COUNT, AUTOMATED 228 K/uL (150-450)
[2018-06-05] MEDS: diphenhydrAMINE 25 MG CAP PO PRN (09:31)
[2018-06-05] MEDS: ACETAMINOPHEN 325 MG TAB PO PRN (09:31)
[2018-06-05] MEDS: DEXAMETHASONE SOD PHOS 10MG/ML IVP PRN (09:32)
[2018-06-05] MEDS ORDERED: IMMU GLOB(IGG) 20GR/200ML VIAL 200 ML IVPB ONE ×2 (10:00→12:00)
[2018-06-05 13:54] VITALS: BP 179/95
[2018-06-06] MEDS ORDERED: PHEN97.53 PO (09:06)
[2018-06-18] MEDS ORDERED: MIRA50TA PO (14:18)
[2018-06-18] MEDS ORDERED: SULF-198 PO (14:21)
== END 2018-06-27 ==
LOC: SPU 08:47
PROVIDERS: ATTEND Internal Medicine
DX: C82.80 Other types of follicular lymphoma, unspecified site (principal); N18.9 Chronic kidney disease, unspecified; J98.9 Respiratory disorder, unspecified; Z99.81 Dependence on supplemental oxygen; D80.1 Nonfamilial hypogammaglobulinemia; Z87.440 Personal history of urinary (tract) infections; R06.02 Shortness of breath; N39.0 Urinary tract infection, site not specified; Z79.4 Long term (current) use of insulin; I12.9 Hypertensive chronic kidney disease with stage 1 through stage 4 chronic kidney disease, or unspecified chronic kidney disease; E11.22 Type 2 diabetes mellitus with diabetic chronic kidney disease
CPT/HCPCS: 82784; 85025; 96365; 96366; 96367; 96375; A9270; G0463; J1100; J1459; J7040; Q0163; 82040; 82247; 82310; 82374; 82435; 82565; 82947; 84075; 84132; 84155; 84295; 84450; 84460; 84520; 99212

== ENCOUNTER 2018-06-06 08:50 | Emergency (ER) | payer MEDICARE, OTHER ==
[2017-08-31 09:26] VITALS: Wt 77.6 kg
[~2018-06-06 08:50] MED LIST changes: -PHEN97.53 PO
[2018-06-06] MEDS ORDERED: PHEN97.53 PO (09:06)
--- NOTE | 2018-06-06 09:16 | ER Report ---
History and Physical Time Seen By MD: 09:15 Hx. of Stated Complaint: Patient fell forward while bending over to do laundry. Injury behind left ear bleeding controlled and complains of left knee pain. 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 She states she was doing laundry and was bending over and tripped and fell landing on the left side of her head resulting in a abrasion and contusion. She denies any loss of consciousness. She is on a blood thinner which is Xarelto; she complains of mild headache but no nausea or vomiting. She reports mild pain to the left hip. she denies any further injuries at this time or complaints. Allergies: Coded Allergies: ketorolac (Verified Allergy, Severe, COULD NOT SEE, N&V, THOUGHT SHE WAS GOING TO , 06/06/18) ibuprofen (Verified Adverse Reaction, Unknown, DIZZINESS, NAUSEA, VOMITING, 06/06/18) Home Meds Active Scripts Carvedilol (CARVEDILOL) 25 Mg Tablet, 25 MG PO BID, #60 Prov:SARAVANAN PADILLA MD 04/01/18 Rivaroxaban (XARELTO 10 MG TAB (OR EQUIV)) 10 Mg Tablet, 15 MG PO QDAY@1700, #30 TAB Prov:YARELI THURMAN MD 09/02/17 Diltiazem Hcl (DILTIAZEM 24HR CD) 120 Mg Cap.er.24h, 240 MG PO QDAY, #60 Prov:UMM APONTE MD 04/15/17 Digoxin (Digox) 125 Mcg Tablet, 0.125 MG PO QDAY, #30 TAB 1 Refill Prov:RAMIN THURMAN MD 02/14/17 Reported Medications Phenazopyridine HCl (Azo Urinary Pain Relief) 97.5 Mg Tablet, 1 TAB PO PRN 06/06/18 Furosemide (FUROSEMIDE) 40 Mg Tablet, 1 TAB PO PRN, TAB 04/28/18 Atorvastatin Calcium (LIPITOR) 20 Mg Tablet, 1 TAB PO HS, TAB 04/01/18 Oxygen (OXYGEN) Inha, 3 L INH, L 06/18/17 Lysine (LYSINE) 500 Mg Tablet, 500 MG PO DAILY 04/27/16 Cranberry Extract (CRANBERRY) 200 Mg Capsule, 200 MG PO BID, CAPSULE 11/11/14 Glucosamine Sulfate 2KCL (GLUCOSAMINE) 1,000 Mg Tablet, 1000 MG PO BID 04/14/14 Multivitamin (MULTI VITAMIN DAILY) 1 Each Tablet, 1 EACH PO QDAY 04/14/14 Insulin Human Regular (Humulin R) 100 U/Ml Vial, 5 U SC TIDCF SS FOR BS 200-250 2 UNITS, 251-300 4 UNITS, 301-350 6 UNITS, 351-400 8 UNITS, OVER 400 10 UNITS 03/04/12 Nph, Human Insulin Isophane (HUMULIN N) 100 Unit/1 Ml Vial, 45 UNIT SQ BIDBS 03/04/12 Discontinued Reported Medications Pumpkin Seed Extract/Soy Germ (Azo Bladder Control Capsule) 300 Mg Capsule, 30 MG PO PRN 04/28/18 Past Medical/Surgical History PAST MEDICAL/SURGICAL HISTORY 1. Cataract surgery. 2. Coronary artery disease. 3. Coronary artery bypass grafting in 2012, followed by Dr. Ronald Swanson. 4. Hyperlipidemia. 5. Hypertension. 6. History of back surgery. 7. Diabetes. 8. 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 9. 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 Hx Smoking: No Smoking Status: Never Smoker Exposure to Second Hand Smoke?: Yes (daugher smokes) Hx Substance Use Disorder: No Hx Alcohol Use: No Constitutional Vital Sign - Last 24 Hours 06/06/18 06/06/18 06/06/18 06/06/18 08:52 09:00 09:15 09:30 Temp 98.8 Pulse 84 85 97 84 Resp 16 Pulse Ox 96 95 84 96 O2 Delivery Nasal Cannula 06/06/18 06/06/18 06/06/18 06/06/18 09:35 10:00 10:15 10:30 Pulse 91 99 B/P (MAP) 183/82 (115) 187/108 (134) 178/79 (112) Pulse Ox 96 93 97 06/06/18 06/06/18 06/06/18 06/06/18 10:45 11:00 11:15 11:30 Pulse 74 75 82 71 B/P (MAP) 172/75 (107) 177/74 (108) Pulse Ox 96 93 95 97 06/06/18 06/06/18 06/06/18 06/06/18 11:45 12:00 12:15 12:30 Pulse 72 72 79 78 B/P (MAP) 175/87 (116) 171/85 (113) Pulse Ox 96 96 96 95 06/06/18 06/06/18 06/06/18 06/06/18 12:45 13:00 13:30 13:45 Pulse 90 75 80 80 B/P (MAP) 177/105 (129) Pulse Ox 90 95 98 98 Intake and Output 06/06/18 06/06/18 06/07/18 14:59 22:59 06:59 Intake Total 2000 ml Balance 2000 ml Physical Exam General Appearance: The patient is alert, has no immediate need for airway protection and no current signs of toxicity. Eyes: Pupils equal and round no injection. Ocular muscles are intact and symmetrical Respiratory: Chest is non tender, lungs are clear to auscultation. Cardiac: regular rate and rhythm Gastrointestinal: Abdomen is soft and non tender, no masses, bowel sounds normal. Musculoskeletal: Neck: Neck is supple and non tender. Extremities have full range of motion and are non tender. Skin: No rashes, patient has a rich-sized abrasion and contusion just behind the left ear which is oozing a small amount of blood. No obvious laceration is noted.. Medical Decision Making Data Points Result Diagram: 06/06/18 0830 Laboratory Hematology Test 06/06/18 08:30 06/06/18 13:35 Sodium Level 135 mmol/L (137-145) Potassium Level 4.4 mmol/L (3.5-5.0) Chloride Level 98 mmol/L (98-107) Carbon Dioxide Level 27 mmol/L (22-31) Blood Urea Nitrogen 27 mg/dl (7-18) Creatinine 1.60 mg/dl (0.52-1.04) Glomerular Filtration Rate Calc 31.6 Random Glucose 518 mg/dl (75-110) Calcium Level 10.2 mg/dl (8.4-10.2) Whole Blood Glucose 327 mg/DL (75-110) Chemistry Test 06/06/18 08:30 06/06/18 13:35 Glomerular Filtration Rate Calc 31.6 Calcium Level 10.2 mg/dl (8.4-10.2) Whole Blood Glucose 327 mg/DL (75-110) EKG/Imaging Imaging FACILITY: [facility] PATIENT NAME: Elena Saunders : 1945 MR: [id number] V: [id number] EXAM DATE: ORDERING PHYSICIAN: ABNER VELÁZQUEZ TECHNOLOGIST: Location: [facility] [place] Patient: Elena Saunders : 1945 Visit/Account:[id number] Date of Sevice: 06/06/2018 Study: CT scan of the brain without intravenous contrast. Indication: Head injury Comparison study: April 28, 2018 Technique: Multiple axial images were obtained through the brain without the use of intravenous contrast. One of the following dose optimization techniques was utilized in the perfor jenn of this exam: Automated exposure control; adjustment of the mA and/or kV according to the patient's size; or use of an iterative reconstruction technique. Specific details can be referenced in the facility's radiology CT exam operational policy. The examination demonstrates no evidence of acute intracranial hemorrhage. There is no evidence of extra-axial collection or hydrocephalus. There are patchy areas of low density within the periventricular white matter. This is most consistent with chronic ischemia and is not significantly changed from the previous study. There is evidence of a lacunar infarct involving the body of the right caudate nucleus. This is also unchanged. There is no evidence of disruption of the peripheral sinclair-white junction. The bony structures are unremarkable. IMPRESSION: No acute intracranial abnormality identified. No change from the previous study. Report Dictated By: Roque Tellez at 06/06/2018 10:12 AM Report E-Signed By: Roque Tellez at 06/06/2018 10:14 AM WSN:[id number] FACILITY: [facility] PATIENT NAME: Elena Saunders : 1945 MR: [id number] V: [id number] EXAM DATE: [id number] ORDERING PHYSICIAN: ABNER VELÁZQUEZ TECHNOLOGIST: Location: [facility] [place] Patient: Elena Saunders : 1945 Visit/Account:[id number] Date of Sevice: 06/06/2018 Study: CT scan of the brain without intravenous contrast. Indication: Head injury Comparison study: April 28, 2018 Technique: Multiple axial images were obtained through the brain without the use of intravenous contrast. One of the following dose optimization techniques was utilized in the performance of this exam: Automated exposure control; adjustment of the mA and/or kV according to the patient's size; or use of an iterative reconstruction technique. Specific details can be referenced in the facility's radiology CT exam operational policy. The examination demonstrates no evidence of acute intracranial hemorrhage. There is no evidence of extra-axial collection or hydrocephalus. There are patchy areas of low density within the periventricular white matter. This is most consistent with chronic ischemia and is not significantly changed from the previous study. There is evidence of a lacunar infarct involving the body of the right caudate nucleus. This is also unchanged. There is no evidence of disruption of the peripheral sinclair-white junction. The bony structures are unremarkable. IMPRESSION: No acute intracranial abnormality identified. No change from the previous study. Report Dictated By: Roque Tellez at 06/06/2018 10:12 AM Report E-Signed By: Roque Tellez at 06/06/2018 10:14 AM WSN:[id number] ED Course/Re-evaluation ED Course 06/06/2018 9:46:25 am and at this time will be to administer tetanus shot as patient is unsure of her last tetanus shot. We'll also perform CT scan of the head. We will only require topical antibiotics and not primary closure. 06/06/2018 11:59:09 am patient has been receiving 2nd liter of IV fluids and another 5 mg of IV regular insulin. We will do Accu-Chek. Decision to Disposition Date: Jun 06, 2018 Decision to Disposition Time: 15:30 Depart Departure Latest Vital Signs Vital Signs Date Time Temp Pulse Resp B/P (MAP) Pulse Ox O2 Delivery O2 Flow Rate FiO2 06/06/18 13:45 80 98 06/06/18 13:00 177/105 (129) 06/06/18 08:52 98.8 16 Nasal Cannula Impression: Primary Impression: Scalp abrasion Additional Impression: Hyperglycemia Condition: Improved Disposition: HOME OR SELF-CARE Referrals: KARIN MELENDEZ DO (PCP) Call to schedule a follow up appointment in 1 -2 weeks for recheck of blood sugar Patient Instructions: Diabetic Hyperglycemia (DC), Head Injury (ED) Problem Qualifiers Primary Impression: Scalp abrasion Encounter type: initial encounter Qualified Codes: S00.01XA - Abrasion of scalp, initial encounter ABNER VELÁZQUEZ MD Jun 06, 2018 09:16
[2018-06-06] MEDS ORDERED: DIPHTH/TETANUS/ACEL. PERTUSSIS IM ONLY ONE (09:20)
[2018-06-06] MEDS ORDERED: NS(*) 0.9% 1000 ML BAG 1,000 ML IV ONE ×2 (09:55→11:05)
--- NOTE | 2018-06-06 10:07 | RADIOLOGY IMAGING REPORT ---
FACILITY: [facility] PATIENT NAME: Elena Saunders : 1945 MR: [id number] V: [id number] EXAM DATE: ORDERING PHYSICIAN: ABNER VELÁZQUEZ TECHNOLOGIST: Location: [facility] [place] Patient: Elena Saunders : 1945 Visit/Account:[id number] Date of Sevice: 06/06/2018 Exam type: KNEE 3 VIEW LEFT History: Fall, pain on anterior side of left knee Comparison: None. Findings: Use of the left knee were submitted. There is mild narrowing the medial compartment of the left knee . There are moderate degenerative changes involving the patellofemoral compartment. There is no charu dence of acute fracture or dislocation seen. Incidentally noted are surgical clips medial and inferi or to the left knee. Vascular calcination occasions also noted IMPRESSION: 1. Moderate sternal changes involving the patellofemoral compartment and mild generative changes inv olving the medial compartment of the left knee No evidence of acute fracture dislocation seen Report Dictated By: Greer Coughlin MD at 06/06/2018 10:01 AM Report E-Signed By: Greer Coughlin MD at 06/06/2018 10:03 AM WSN:[id number]
[2018-06-06] MEDS ORDERED: INSU HUM REG 100 U/ML(ER ONLY) 10 ML VIAL IV ONE ×2 (10:10→11:05)
--- NOTE | 2018-06-06 10:18 | RADIOLOGY IMAGING REPORT ---
FACILITY: [facility] PATIENT NAME: Elena Saunders : 1945 MR: [id number] V: [id number] EXAM DATE: ORDERING PHYSICIAN: ABNER VELÁZQUEZ TECHNOLOGIST: Location: Patient: Elena Saunders : 1945 Visit/Account:[id number] Date of Sevice: 06/06/2018 Study: CT scan of the brain without intravenous contrast. Indication: Head injury Comparison study: April 28, 2018 Technique: Multiple axial images were obtained through the brain without the use of intravenous contr ast. One of the following dose optimization techniques was utilized in the performance of this exam: Autom ated exposure control; adjustment of the mA and/or kV according to the patient's size; or use of an i terative reconstruction technique. Specific details can be referenced in the facility's radiology C T exam operational policy. The examination demonstrates no evidence of acute intracranial hemorrhage. There is no evidence of ex tra-axial collection or hydrocephalus. There are patchy areas of low density within the periventricular white matter. This is most consiste nt with chronic ischemia and is not significantly changed from the previous study. There is evidence of a lacunar infarct involving the body of the right caudate nucleus. This is also unchanged. There is no evidence of disruption of the peripheral sinclair-white junction. The bony structures are unremarkable. IMPRESSION: No acute intracranial abnormality identified. No change from the previous study. Report Dictated By: Roque Tellez at 06/06/2018 10:12 AM Report E-Signed By: Roque Tellez at 06/06/2018 10:14 AM WSN:[id number]
[2018-06-06 13:00] VITALS: BP 177/105
== END 2018-06-06 14:11 | disposition home or self-care (01) ==
LOC: ER 09:16
DX: S00.01XA Abrasion of scalp, initial encounter (principal); E11.65 Type 2 diabetes mellitus with hyperglycemia; R51 Headache
CPT/HCPCS: 36416; 70450; 73562; 82948; 90471; 90715; 96360; 96361; 99284; A9270; J7030; 82310; 82374; 82435; 82565; 82947; 84132; 84295; 84520; J1815

== ENCOUNTER → 2018-06-06 | Outpatient (CLI) | payer MEDICARE, OTHER ==
[2017-08-31 09:26] VITALS: BMI 28.7
[~2018-06-06] MED LIST changes: -DEXTROSE 5%(*) 100 ML BAG 100 ML IVPB PRN; -IMMU GLOB(IGG) 20GR/200ML VIAL 200 ML IVPB ONE; -IMMU GLOB(IGG) 20GR/200ML VIAL 40 GR in EMPTY EVACUATED CONT 0 ML IVPB ONE; -NS(*) 0.9% 100 ML BAG 100 ML IVPB PRN; +PHEN97.53 PO
== END ==
LOC: AMB 08:27
PROVIDERS: ATTEND Nurse Practitioner
DX: M25.561 Pain in right knee (principal); R73.9 Hyperglycemia, unspecified; W18.30XA Fall on same level, unspecified, initial encounter; Y92.039 Unspecified place in apartment as the place of occurrence of the external cause
CPT/HCPCS: A0425; A0427

== ENCOUNTER → 2018-06-29 | Outpatient (CLI) | payer MEDICARE, OTHER ==
[~2018-06-29] MED LIST changes: +ATOR20TA65 PO; +GABA-549 PO; +HYDR-2966 PO; +MIRA50TA PO; +PHEN97.53 PO; +TRAM-420 PO
[2018-06-30 10:58] VITALS: BMI 26.6
== END ==
LOC: AMB 01:02
PROVIDERS: ATTEND Nurse Practitioner
DX: R07.81 Pleurodynia (principal); M25.531 Pain in right wrist; M54.5 Low back pain; W01.198A Fall on same level from slipping, tripping and stumbling with subsequent striking against other object, initial encounter; Y92.002 Bathroom of unspecified non-institutional (private) residence as the place of occurrence of the external cause
CPT/HCPCS: A0425; A0429

== ENCOUNTER 2018-06-30 01:18 | Inpatient (IN) | payer MEDICARE, OTHER ==
[~2018-06-30] VITALS: Ht 170.2 cm; Wt 74.4 kg
[2018-06-30] VITALS (17 sets, daily range): BP systolic 16–199; BP diastolic 63–145; Ht 170.2 cm; Wt 74.4 kg
[~2018-06-30 01:18] MED LIST changes: -ATOR20TA65 PO; -GABA-549 PO; -HYDR-2966 PO; -TRAM-420 PO
--- NOTE | 2018-06-30 01:22 | ER Report ---
History and Physical Time Seen By MD: 01:19 HPI/ROS CHIEF COMPLAINT: fall with rib pain and wrist pain HISTORY OF PRESENT ILLNESS: This is a 72 year old female. She lost her balance and fell at home. Landed on her tub on her right side. She has right rib pain, pain worsens with any movement or breathing. Also pain in the right wrist. She did not hit her head or neck and has no head or neck pain. No loss of consciousness. She does have some blood in her urine but states that she has been having this for a while with a chronic UTI. Currently on Bactrim for this. Denies any abdominal pain or vomiting at this time. No lower back pain. She does have some pain in the upper back but it is in the posterior ribs on the right. Allergies: Coded Allergies: ketorolac (Verified Allergy, Severe, COULD NOT SEE, N&V, THOUGHT SHE WAS GOING TO , 06/30/18) ibuprofen (Verified Adverse Reaction, Unknown, DIZZINESS, NAUSEA, VOMITING, 06/30/18) Home Meds Active Scripts Sulfamethoxazole/Trimet 800-160 Mg Tab (BACTRIM DS TABLET) 1 Each Tablet, 1 TAB PO Q12H PRN for UTI symptoms for 3 Days, #20 TAB 3 Refills Prov:MACHELLE ISBELL MD 06/18/18 Mirabegron (MYRBETRIQ) 50 Mg Tab.er.24h, 50 MG PO DAILY for overactive bladder for 30 Days, #30 CAP 3 Refills Prov:MACHELLE ISBELL MD 06/18/18 Carvedilol (CARVEDILOL) 25 Mg Tablet, 25 MG PO BID, #60 Prov:SARAVANAN PADILLA MD 04/01/18 Rivaroxaban (XARELTO 10 MG TAB (OR EQUIV)) 10 Mg Tablet, 15 MG PO QDAY@1700, #30 TAB Prov:YARELI THURMAN MD 09/02/17 Diltiazem Hcl (DILTIAZEM 24HR CD) 120 Mg Cap.er.24h, 240 MG PO QDAY, #60 Prov:UMM APONTE MD 04/15/17 Digoxin (Digox) 125 Mcg Tablet, 0.125 MG PO QDAY, #30 TAB 1 Refill Prov:RAMIN THURMAN MD 02/14/17 Reported Medications Phenazopyridine HCl (Azo Urinary Pain Relief) 97.5 Mg Tablet, 1 TAB PO PRN 06/06/18 Furosemide (FUROSEMIDE) 40 Mg Tablet, 1 TAB PO PRN, TAB 04/28/18 Atorvastatin Calcium (LIPITOR) 20 Mg Tablet, 1 TAB PO HS, TAB 04/01/18 Oxygen (OXYGEN) Inha, 3 L INH, L 06/18/17 Lysine (LYSINE) 500 Mg Tablet, 500 MG PO DAILY 04/27/16 Cranberry Extract (CRANBERRY) 200 Mg Capsule, 200 MG PO BID, CAPSULE 11/11/14 Glucosamine Sulfate 2KCL (GLUCOSAMINE) 1,000 Mg Tablet, 1000 MG PO BID 04/14/14 Multivitamin (MULTI VITAMIN DAILY) 1 Each Tablet, 1 EACH PO QDAY 04/14/14 Insulin Human Regular (Humulin R) 100 U/Ml Vial, 5 U SC TIDCF SS FOR BS 200-250 2 UNITS, 251-300 4 UNITS, 301-350 6 UNITS, 351-400 8 UNITS, OVER 400 10 UNITS 03/04/12 Nph, Human Insulin Isophane (HUMULIN N) 100 Unit/1 Ml Vial, 45 UNIT SQ BIDBS 03/04/12 Reviewed Nurses Notes: Yes Hx Smoking: No Smoking Status: Never Smoker Exposure to Second Hand Smoke?: Yes (daugher smokes) Hx Substance Use Disorder: No Hx Alcohol Use: No Constitutional Vital Sign - Last 24 Hours 06/30/18 06/30/18 06/30/18 06/30/18 01:18 01:23 01:30 01:48 Temp 98.5 Pulse ??? 75 69 Resp 17 B/P (MAP) 155/88 155/88 (110) Pulse Ox 95 97 O2 Delivery Room Air 06/30/18 06/30/18 06/30/18 06/30/18 02:00 02:33 02:48 03:00 Pulse 73 66 B/P (MAP) 189/99 (129) 156/110 (125) 188/80 (116) Pulse Ox 97 97 06/30/18 06/30/18 06/30/18 06/30/18 03:00 04:00 04:30 06:45 Pulse 91 88 82 B/P (MAP) 188/80 (116) 181/83 (115) 170/92 (118) Pulse Ox 98 98 96 Physical Exam General Appearance: The patient is alert. Acute distress because of the pain. The pain only seems to be present with movement or deep breaths. Eyes: Pupils are equal, round. No pallor, injection or icterus. ENT: Mucous membranes are moist. Normal oral mucosa. Posterior oropharynx is normal. Neck: Supple and non tender. Respiratory: Lungs are clear to auscultation. Pain with deep respirations, located on the right lateral and posterior ribs. Cardiovascular: Regular rate and rhythm. No murmurs, gallops or rubs. Normal capillary refill. No edema. Normal pulses in the radial pulses and the posterior tibialis pulses. Gastrointestinal: Abdomen is soft and non tender. Nondistended. Normal active bowel sounds. No costovertebral angle tenderness with percussion. Neurological: Alert and oriented x3. No focal neurologic deficits. Normal sensation in the right wrist and hand. Skin: Warm and dry. No skin breakdown. Musculoskeletal: Extremities show pain with palpating over the right wrist.. Pain with palpation of the right ribs anterior lateral and posterior. No tenderness in palpation of the cervical, thoracic and lumbar spine. DIFFERENTIAL DIAGNOSIS: After history and physical exam, differential diagnosis was considered for fall with right sided rib pain as well as right wrist injury Medical Decision Making Data Points Result Diagram: 06/30/18 0147 06/30/18 0147 Laboratory Hematology Test 06/30/18 01:47 06/30/18 03:07 Red Blood Count 4.08 M/uL (4.17-5.56) Mean Corpuscular Volume 93.2 fL (80.0-96.0) Mean Corpuscular Hemoglobin 30.3 pg (26.0-33.0) Mean Corpuscular Hemoglobin Concent 32.6 g/dL (32.0-36.0) Red Cell Distribution Width 14.7 % (11.5-14.5) Mean Platelet Volume 10.5 fL (7.2-11.1) Neutrophils (%) (Auto) 68.6 % (39.4-72.5) Lymphocytes (%) (Auto) 18.9 % (17.6-49.6) Monocytes (%) (Auto) 9.1 % (4.1-12.4) Eosinophils (%) (Auto) 2.5 % (0.4-6.7) Basophils (%) (Auto) 0.9 % (0.3-1.4) Nucleated RBC Relative Count (auto) 0.1 /100WBC Neutrophils # (Auto) 6.3 K/uL (2.0-7.4) Lymphocytes # (Auto) 1.7 K/uL (1.3-3.6) Monocytes # (Auto) 0.8 K/uL (0.3-1.0) Eosinophils # (Auto) 0.2 K/uL (0.0-0.5) Basophils # (Auto) 0.1 K/uL (0.0-0.1) Nucleated RBC Absolute Count (auto) 0.01 K/uL Sodium Level 136 mmol/L (137-145) Potassium Level 4.5 mmol/L (3.5-5.0) Chloride Level 100 mmol/L (98-107) Carbon Dioxide Level 30 mmol/L (22-31) Blood Urea Nitrogen 16 mg/dl (7-18) Creatinine 1.50 mg/dl (0.52-1.04) Glomerular Filtration Rate Calc 34.0 Random Glucose 235 mg/dl (75-110) Calcium Level 9.9 mg/dl (8.4-10.2) Total Bilirubin 0.2 mg/dl (0.2-1.3) Aspartate Amino Transf (AST/SGOT) 43 U/L (0-35) Alanine Aminotransferase (ALT/SGPT) 29 U/L (0-56) Alkaline Phosphatase 110 U/L (0-126) Total Protein 6.5 g/dl (6.3-8.2) Albumin 3.5 g/dl (3.5-5.0) Urine Color Yellow Urine Clarity Cloudy Urine pH 6.0 pH (4.8-9.5) Urine Specific [place] 1.020 Urine Protein 500 mg/dL (NEGATIVE) Urine Glucose (UA) 500 mg/dL (NEGATIVE) Urine Ketones Negative mg/dL (NEGATIVE) Urine Blood Large (NEGATIVE) Urine Nitrite Negative (NEGATIVE) Urine Bilirubin Negative (NEGATIVE) Urine Urobilinogen Negative mg/dL (0.2-1.9) Urine Leukocyte Esterase Negative (NEGATIVE) Urine RBC 1384 /HPF (0-2/HPF) Urine WBC 65 /HPF (0-5/HPF) Urine Squamous Epithelial Cells Many /LPF (</=FEW) Urine Bacteria Few /HPF (NONE-FEW) Urine Mucus None /HPF (NONE-FEW) Chemistry Test 06/30/18 01:47 06/30/18 03:07 White Blood Count 9.2 k/uL (4.5-11.0) Red Blood Count 4.08 M/uL (4.17-5.56) Hemoglobin 12.4 g/dL (12.0-16.0) Hematocrit 38.0 % (34.0-47.0) Mean Corpuscular Volume 93.2 fL (80.0-96.0) Mean Corpuscular Hemoglobin 30.3 pg (26.0-33.0) Mean Corpuscular Hemoglobin Concent 32.6 g/dL (32.0-36.0) Red Cell Distribution Width 14.7 % (11.5-14.5) Platelet Count 285 K/uL (150-450) Mean Platelet Volume 10.5 fL (7.2-11.1) Neutrophils (%) (Auto) 68.6 % (39.4-72.5) Lymphocytes (%) (Auto) 18.9 % (17.6-49.6) Monocytes (%) (Auto) 9.1 % (4.1-12.4) Eosinophils (%) (Auto) 2.5 % (0.4-6.7) Basophils (%) (Auto) 0.9 % (0.3-1.4) Nucleated RBC Relative Count (auto) 0.1 /100WBC Neutrophils # (Auto) 6.3 K/uL (2.0-7.4) Lymphocytes # (Auto) 1.7 K/uL (1.3-3.6) Monocytes # (Auto) 0.8 K/uL (0.3-1.0) Eosinophils # (Auto) 0.2 K/uL (0.0-0.5) Basophils # (Auto) 0.1 K/uL (0.0-0.1) Nucleated RBC Absolute Count (auto) 0.01 K/uL Glomerular Filtration Rate Calc 34.0 Calcium Level 9.9 mg/dl (8.4-10.2) Total Bilirubin 0.2 mg/dl (0.2-1.3) Aspartate Amino Transf (AST/SGOT) 43 U/L (0-35) Alanine Aminotransferase (ALT/SGPT) 29 U/L (0-56) Alkaline Phosphatase 110 U/L (0-126) Total Protein 6.5 g/dl (6.3-8.2) Albumin 3.5 g/dl (3.5-5.0) Urine Color Yellow Urine Clarity Cloudy Urine pH 6.0 pH (4.8-9.5) Urine Specific [place] 1.020 Urine Protein 500 mg/dL (NEGATIVE) Urine Glucose (UA) 500 mg/dL (NEGATIVE) Urine Ketones Negative mg/dL (NEGATIVE) Urine Blood Large (NEGATIVE) Urine Nitrite Negative (NEGATIVE) Urine Bilirubin Negative (NEGATIVE) Urine Urobilinogen Negative mg/dL (0.2-1.9) Urine Leukocyte Esterase Negative (NEGATIVE) Urine RBC 1384 /HPF (0-2/HPF) Urine WBC 65 /HPF (0-5/HPF) Urine Squamous Epithelial Cells Many /LPF (</=FEW) Urine Bacteria Few /HPF (NONE-FEW) Urine Mucus None /HPF (NONE-FEW) Urinalysis Test 06/30/18 03:07 Urine Color Yellow Urine Clarity Cloudy Urine pH 6.0 pH (4.8-9.5) Urine Specific [place] 1.020 Urine Protein 500 mg/dL (NEGATIVE) Urine Glucose (UA) 500 mg/dL (NEGATIVE) Urine Ketones Negative mg/dL (NEGATIVE) Urine Blood Large (NEGATIVE) Urine Nitrite Negative (NEGATIVE) Urine Bilirubin Negative (NEGATIVE) Urine Urobilinogen Negative mg/dL (0.2-1.9) Urine Leukocyte Esterase Negative (NEGATIVE) Urine RBC 1384 /HPF (0-2/HPF) Urine WBC 65 /HPF (0-5/HPF) Urine Squamous Epithelial Cells Many /LPF (</=FEW) Urine Bacteria Few /HPF (NONE-FEW) Urine Mucus None /HPF (NONE-FEW) EKG/Imaging Imaging RIGHT WRIST: Indication: Injury. Technique: 3 views were obtained. Comparison: None. Findings: There is no evidence of fracture, dislocation, or other acute deformity. The skeletal structures are demineralized. There are mild degenera tive changes in the carpal bones. No periarticular soft tissue abnormality is identified. There is diffuse atherosclerotic calcification in the ulnar artery. IMPRESSION: No acute deformity. Report Dictated By: Bayron Vaughan MD at 06/30/2018 2:49 AM CHEST: Indication: Injury. Technique: Frontal and lateral views were obtained. Comparison: 04/28/2018 Skeletal and soft tissue structures: There is focal cortical irregularity in the lateral aspect of the right sixth rib, suggesting nondisplaced fracture. No other focal rib deformities are clearly identified. There are chronic degenera tive changes in the thoracic spine. No fracture or compression deformity is identified. Sternal sutures appear intact. Heart and mediastinum: Stable. Lung delgado: Well-expanded. There are chronic linear opacities at the left base. No acute parenchymal process is identified. Pleural spaces: There is persistent left pleural thickening/effusion, without significant change. There is no evidence of pneumothorax. Impression: An acute fracture of the right sixth rib is suspected. No acute parenchymal or pleural process is identified. Report Dictated By: Bayron Vaughan MD at 06/30/2018 2:53 AM COMPUTED TOMOGRAPHY CHEST, ABDOMEN AND PELVIS WITHOUT INTRAVENOUS CONTRAST DATE OF EXAM: 06/30/2018 3:17 AM. INDICATION: Fall, right rib pain. COMPARISON: CT abdomen and pelvis 05/06/2016 comment chest radiographs today. TECHNIQUE: Chest, abdomen and pelvis CT performed without contrast. Sagittal and coronal reconstructions were performed. One of the following dose optimization techniques was utilized in the performance of this exam: automated exposure control; adjustment of the mA and/or kV according to patient size; or use of iterative reconstruction technique. Specific details can be referenced in the facility?s radiology CT exam operational policy. FINDINGS: CHEST: Thyroid: Mildly heterogeneous. Thoracic inlet: Unremarkable. Heart and great vessels: Mild to moderate cardiac enlargement. Severe coronary artery calcification with previous CABG. Nonaneurysmal aorta with mild calcification. Mediastinum and bernabe: Small hiatal hernia. No acute abnormality. Lungs and pleura: Moderate volume left pleural fluid and trace right pleural fluid. No pneumothorax. 8 x 6 mm subpleural nodule in the right upper lobe on image 137 series 5. Breast and axilla: No adenopathy. ABDOMEN AND PELVIS: Liver and hepatic vasculature: No acute abnormality or suspicious lesion. Portable vascular calcifications in the liver. Gallbladder and bile ducts: Cholelithiasis with no evidence of cholecystitis. Spleen: Normal. Pancreas: Nonfocal. Adrenals: Normal. Kidneys, ureters and bladder: No acute abnormality or suspicious lesion. Question tiny cyst in the medial aspect of the left kidney on image 348 series 5. Retroperitoneum and aorta: Nonaneurysmal aorta with mild to moderate calcification. No adenopathy. GI tract, mesentery and peritoneum: Nonacute. Severe colonic diverticulosis. Small hiatal hernia. Uterus and adnexa: Suspected leiomyomas in the myometrium similar in appearance to 2016. Bones and soft tissues: There are acute lateral fractures of the right 6th and 7th ribs and posterior fractures of the right 9th through 12th ribs. The 11th and 12th ribs are fractured medially as well. Median sternotomy closure. Probable injection sites in the anterior abdominal wall. Previous lumbosacral laminectomies. IMPRESSION: 1. Multiple right rib fractures as described. No pneumothorax. 2. Small volume of pleural fluid on the left and trace pleural fluid on the right. Small hiatal hernia. 3. 8 x 6 mm subpleural nodule in the right upper lobe. Although the images are not available at the time of dictation, there is reportedly a nodule in this location prior exams. Recommend comparison with this imaging when available. 4. Multiple additional findings as described. Report Dictated By: Jaime Mccall MD at 06/30/2018 3:55 AM ED Course/Re-evaluation Clinical Indication for ER IV: Hydration, IV Access ED Course The patient was in too much pain to complete the rib series x-rays. Because of this I went ahead and had labs obtained and switched to a CT scan. When ahead and did chest/abdomen/pelvis because the patient is having the blood in the urine and cannot tell if this is from a UTI or from her fall based on the pain in the right flank area which appears most likely to be the ribs. CT scan shows the rib fractures as noted above. She is having trouble getting around because of the pain. No real improvement with Fentanyl 50mcg initially, then 4mg of Morphine IV. Later given Lortab 10/325 with mild relief. Discussed with Dr. Suarez who will admit for pain control and re-evaluation. Decision to Disposition Date: Jun 30, 2018 Decision to Disposition Time: 06:00 Depart Departure Latest Vital Signs Vital Signs Date Time Temp Pulse Resp B/P (MAP) Pulse Ox O2 Delivery O2 Flow Rate FiO2 06/30/18 06:45 82 96 06/30/18 04:30 170/92 (118) 06/30/18 01:23 98.5 17 Room Air Impression: Primary Impression: Ribs, multiple fractures Condition: Condition Unchanged Disposition: Admitted from ER Referrals: KARIN MELENDEZ DO (PCP) Problem Qualifiers Primary Impression: Ribs, multiple fractures Encounter type: initial encounter Fracture type: closed Laterality: ri ght Qualified Codes: S22.41XA - Multiple fractures of ribs, right side, initial encounter for closed fracture FRAN DEY MD Jun 30, 2018 01:22
[2018-06-30] MEDS ORDERED: fentaNYL CITR 100 MCG/2 ML AMP IVP ONE (01:25)
[2018-06-30] MEDS ORDERED: IOPAMIDOL 76% 75 ML INFUS BTL 0 ML ONE (02:59)
[2018-06-30 03:07] LABS: PLATELET COUNT, AUTOMATED 285 K/uL (150-450)
--- NOTE | 2018-06-30 03:21 | RADIOLOGY IMAGING REPORT ---
FACILITY: [facility] PATIENT NAME: Elena Saunders : 1945 MR: [id number] V: [id number] EXAM DATE: ORDERING PHYSICIAN: FRAN DEY TECHNOLOGIST: Location: [facility] - [place], [place] Patient: Elena Saunders : 1945 Visit/Account:[id number] Date of Sevice: 06/30/2018 CHEST: Indication: Injury. Technique: Frontal and lateral views were obtained. Comparison: 04/28/2018 Skeletal and soft tissue structures: There is focal cortical irregularity in the lateral aspect of th e right sixth rib, suggesting nondisplaced fracture. No other focal rib deformities are clearly ident ified. There are chronic degenerative changes in the thoracic spine. No fracture or compression defor mity is identified. Sternal sutures appear intact. Heart and mediastinum: Stable. Lung delgado: Well-expanded. There are chronic linear opacities at the left base. No acute parenchymal process is identified. Pleural spaces: There is persistent left pleural thickening/effusion, without significant change. The re is no evidence of pneumothorax. Impression: An acute fracture of the right sixth rib is suspected. No acute parenchymal or pleural pr ocess is identified. Report Dictated By: Bayron Vaughan MD at 06/30/2018 2:53 AM Report E-Signed By: Bayron Vaughan MD at 06/30/2018 2:58 AM WSN:[id number]
--- NOTE | 2018-06-30 03:21 | RADIOLOGY IMAGING REPORT ---
FACILITY: [facility] - [place] PATIENT NAME: Elena Saunders : 1945 MR: [id number] V: [id number] EXAM DATE: ORDERING PHYSICIAN: FRAN DEY TECHNOLOGIST: Location: [facility] - [place] Patient: Elena Saunders : 1945 Visit/Account:[id number] Date of Sevice: 06/30/2018 RIGHT WRIST: Indication: Injury. Technique: 3 views were obtained. Comparison: None. Findings: There is no evidence of fracture, dislocation, or other acute deformity. The skeletal struc tures are demineralized. There are mild degenerative changes in the carpal bones. No periarticular so ft tissue abnormality is identified. There is diffuse atherosclerotic calcification in the ulnar radha ry. IMPRESSION: No acute deformity. Report Dictated By: Bayron Vaughan MD at 06/30/2018 2:49 AM Report E-Signed By: Bayron Vaughan MD at 06/30/2018 2:53 AM WSN:[id number]
[2018-06-30] MEDS ORDERED: MORPHINE 4 MG/ML SDV IVP ONE (03:40)
--- NOTE | 2018-06-30 04:17 | RADIOLOGY IMAGING REPORT ---
[facility] PATIENT NAME: Elena Saunders : 1945 MR: [id number] V: [id number] EXAM DATE: ORDERING PHYSICIAN: FRAN DEY TECHNOLOGIST: Location: [place] [facility] Patient: Elena Saunders : 1945 Visit/Account:[id number] Date of Sevice: 06/30/2018 COMPUTED TOMOGRAPHY CHEST, ABDOMEN AND PELVIS WITHOUT INTRAVENOUS CONTRAST DATE OF EXAM: 06/30/2018 3:17 AM. INDICATION: Fall, right rib pain. COMPARISON: CT abdomen and pelvis 05/06/2016 comment chest radiographs today. TECHNIQUE: Chest, abdomen and pelvis CT performed without contrast. Sagittal and coronal reconstruct ions were performed. One of the following dose optimization techniques was utilized in the performan ce of this exam: automated exposure control; adjustment of the mA and/or kV according to patient size ; or use of iterative reconstruction technique. Specific details can be referenced in the facility?s radiology CT exam operational policy. FINDINGS: CHEST: Thyroid: Mildly heterogeneous. Thoracic inlet: Unremarkable. Heart and great vessels: Mild to moderate cardiac enlargement. Severe coronary artery calcification with previous CABG. Nonaneurysmal aorta with mild calcification. Mediastinum and bernabe: Small hiatal hernia. No acute abnormality. Lungs and pleura: Moderate volume left pleural fluid and trace right pleural fluid. No pneumothorax . 8 x 6 mm subpleural nodule in the right upper lobe on image 137 series 5. Breast and axilla: No adenopathy. ABDOMEN AND PELVIS: Liver and hepatic vasculature: No acute abnormality or suspicious lesion. Portable vascular calcifi cations in the liver. Gallbladder and bile ducts: Cholelithiasis with no evidence of cholecystitis. Spleen: Normal. Pancreas: Nonfocal. Adrenals: Normal. Kidneys, ureters and bladder: No acute abnormality or suspicious lesion. Question tiny cyst in the medial aspect of the left kidney on image 348 series 5. Retroperitoneum and aorta: Nonaneurysmal aorta with mild to moderate calcification. No adenopathy. GI tract, mesentery and peritoneum: Nonacute. Severe colonic diverticulosis. Small hiatal hernia. Uterus and adnexa: Suspected leiomyomas in the myometrium similar in appearance to 2016. Bones and soft tissues: There are acute lateral fractures of the right 6th and 7th ribs and posterio r fractures of the right 9th through 12th ribs. The 11th and 12th ribs are fractured medially as wel l. Median sternotomy closure. Probable injection sites in the anterior abdominal wall. Previous patricia mbosacral laminectomies. IMPRESSION: 1. Multiple right rib fractures as described. No pneumothorax. 2. Small volume of pleural fluid on the left and trace pleural fluid on the right. Small hiatal hernia. 3. 8 x 6 mm subpleural nodule in the right upper lobe. Although the images are not available at the time of dictation, there is reportedly a nodule in this location prior exams. Recommend comparison with this imaging when available. 4. Multiple additional findings as described. Report Dictated By: Jaime Mccall MD at 06/30/2018 3:55 AM Report E-Signed By: Jaime Mccall MD at 06/30/2018 4:13 AM WSN:[id number]
[2018-06-30] MEDS ORDERED: APAP/HYDROCODONE 325/10 TAB PO ONE (05:10)
--- NOTE | 2018-06-30 09:06 | Gen Surgery History & Physical ---
History of Present Illness Chief Complaint fall in bathroom, denies LOC History of Present Illness 72 yo female on home oxygen, with multiple co-morbidities, who sustained a ground level fall early this am. States she hit her right side on the tub. Denies LOC or other injuries. History Home Meds Active Scripts Sulfamethoxazole/Trimet 800-160 Mg Tab (BACTRIM DS TABLET) 1 Each Tablet, 1 TAB PO Q12H PRN for UTI symptoms for 3 Days, #20 TAB 3 Refills Prov:MACHELLE ISBELL MD 06/18/18 Mirabegron (MYRBETRIQ) 50 Mg Tab.er.24h, 50 MG PO DAILY for overactive bladder for 30 Days, #30 CAP 3 Refills Prov:MACHELLE ISBELL MD 06/18/18 Carvedilol (CARVEDILOL) 25 Mg Tablet, 25 MG PO BID, #60 Prov:SARAVANAN PADILLA MD 04/01/18 Rivaroxaban (XARELTO 10 MG TAB (OR EQUIV)) 10 Mg Tablet, 15 MG PO QDAY@1700, #30 TAB Prov:YARELI THURMAN MD 09/02/17 Diltiazem Hcl (DILTIAZEM 24HR CD) 120 Mg Cap.er.24h, 240 MG PO QDAY, #60 Prov:UMM APONTE MD 04/15/17 Digoxin (Digox) 125 Mcg Tablet, 0.125 MG PO QDAY, #30 TAB 1 Refill Prov:RAMIN THURMAN MD 02/14/17 Reported Medications Phenazopyridine HCl (Azo Urinary Pain Relief) 97.5 Mg Tablet, 1 TAB PO PRN 06/06/18 Furosemide (FUROSEMIDE) 40 Mg Tablet, 1 TAB PO PRN, TAB 04/28/18 Atorvastatin Calcium (LIPITOR) 20 Mg Tablet, 1 TAB PO HS, TAB 04/01/18 Oxygen (OXYGEN) Inha, 3 L INH, L 06/18/17 Lysine (LYSINE) 500 Mg Tablet, 500 MG PO DAILY 04/27/16 Cranberry Extract (CRANBERRY) 200 Mg Capsule, 200 MG PO BID, CAPSULE 11/11/14 Glucosamine Sulfate 2KCL (GLUCOSAMINE) 1,000 Mg Tablet, 1000 MG PO BID 04/14/14 Multivitamin (MULTI VITAMIN DAILY) 1 Each Tablet, 1 EACH PO QDAY 8/26/14 Insulin Human Regular (Humulin R) 100 U/Ml Vial, 5 U SC TIDCF SS FOR BS 200-250 2 UNITS, 251-300 4 UNITS, 301-350 6 UNITS, 351-400 8 UNITS, OVER 400 10 UNITS 03/04/12 Nph, Human Insulin Isophane (HUMULIN N) 100 Unit/1 Ml Vial, 45 UNIT SQ BIDBS 03/04/12 Allergies: Coded Allergies: ketorolac (Verified Allergy, Severe, COULD NOT SEE, N&V, THOUGHT SHE WAS GOING TO , 06/30/18) ibuprofen (Verified Adverse Reaction, Unknown, DIZZINESS, NAUSEA, VOMITING, 06/30/18) Patient History: UTI (urinary tract infection) MOTHER (CKD), Review of Systems All Systems Reviewed/Normal: Yes, Except as Noted Neurological: Weakness Respiratory: Other (see hpi) Genitourinary: Dysuria, Urinary Incontinence, Other (chronic uti) Musculoskeletal: Impaired Mobility Exam General Appearance: Alert, Awake, No Acute Distress, Afebrile Neuro: No Gross deficits Eyes: PERRLA Cardiovascular: Other (Cor IRRR) Respiratory: No Respiratory Distress, Clear to Auscultation, Other (decreased breath sounds on the right side) GI: Abd Soft and Non-Tender : Normal Musculoskeletal: No Weakness/Pain Extremities: Soft and Non Tender, Warm Integumentary: Skin Intact without Lesion / Mass Psych: Alert & Oriented X3, Appropriate Mood & Affect Medical Decision Making Data Points Result Diagram: 06/30/1814606/30/18146 EKG / Imaging Monitor Interpretation: Atrial Fibrillation Pre-Admit Course Medical Record Review: Yes Assessment and Plan Problems: (1) Ribs, multiple fractures Status: Acute Assessment & Plan: 06/30/2018: Admit to ICU, aggressive pulm toilet, trend FVC, multimodal analgesia, daily CXR. Given her severe cardiopulm disease she is at high risk for morbidity and mortality from this injury. She confirms she is DNR/DNI. She declines consideration of epidural catheter for pain control. Will ask internal medicine to consult given severe multisystem chronic disease. (2) Pulmonary nodule Status: Chronic Assessment & Plan: Has had pulm nodule prior though in a different location by radiology review. Will need to see Pulm MD for outpt workup and follow up. Time Spent: > 30 min Critical Time Spent: 1st 30-74 Minutes Venous Thromboembolism VTE Risk Physician Assess for VTE Risk: Yes Patient's VTE Risk: Low VTE Diagnostic Test 2 Days Prior to Admit: No Antithrombotics Is Pt On Any Antithrombotics?: Yes Prophylaxis Tx Contraindicated Pharmacological Contraindicati: Medical Contraindication Mechanical Contraindications: Pt/Family Refused DIVYA GONZALES MD Jun 30, 2018 09:06
[2018-06-30] MEDS ORDERED: NS(*) 0.9% 1000 ML BAG 1,000 ML IV PRN (09:35)
[2018-06-30] MEDS ORDERED: APAP/HYDROCODONE 325/5 TAB PO PRN (09:35)
[2018-06-30] MEDS ORDERED: NALOXONE HCL 0.4 MG/ML VIAL IVP PRN (10:00)
[2018-06-30] MEDS ORDERED: IPRATROPIUM 0.5MG/2.5ML NEB NEB PRN (10:00)
[2018-06-30] MEDS ORDERED: ALBUTEROL 2.5 MG/3 ML NEB NEB PRN (10:00)
[2018-06-30] MEDS ORDERED: GABAPENTIN 300 MG CAP PO ONE (10:25)
[2018-06-30] MEDS ORDERED: LIDOCAINE 5% PATCH TP ONE (10:25)
[2018-06-30] MEDS ORDERED: DILTIAZEM CD 120 MG CAPCR PO SCH (10:40)
--- NOTE | 2018-06-30 10:50 | EKG ---
FACILITY: [facility] PATIENT NAME: ELIZABETH ROD : [id number] MR: [id number] V: [id number] EXAM DATE: ORDERING PHYSICIAN: DIVYA GONZALES TECHNOLOGIST: DAVID Patel Reason : AFIB Blood Pressure : / mmHG Vent. Rate : 110 BPM Atrial Rate : 117 BPM P-R Int : 000 ms QRS Dur : 106 ms QT Int : 348 ms P-R-T Axes : 000 110 -67 degrees QTc Int : 470 ms Atrial fibrillation with rapid ventricular response Left posterior fascicular block ST and T wave abnormality, consider inferior ischemia or digitalis effect Abnormal ECG When compared with ECG of 10-JAN-2018 11:04, Vent. rate has increased BY [address] less depressed in Lateral leads T wave inversion no longer evident in Lateral leads QT has lengthened Confirmed by Bang Day ([id number]) on 06/30/2018 12:41:33 PM Referred By: Confirmed By:Bang Howell
[2018-06-30] MEDS ORDERED: TRIMETH/SULFA DS 160-800MG TAB PO PRN (10:55)
[2018-06-30] MEDS ORDERED: NS(*) 0.9% 250 ML BAG 250 ML IV PRN (11:15)
[2018-06-30] MEDS: MIRABEGRON 25 MG ER TAB PO SCH (11:16)
[2018-06-30] MEDS: CARVEDILOL 25 MG TABLET PO SCH ×2 (11:16→20:17)
[2018-06-30] MEDS: DIGOXIN 0.125 MG TAB PO SCH (11:17)
[2018-06-30] MEDS ORDERED: INSULIN GLARGINE 100 U/ML 3 ML PEN SUBQ SCH (11:45)
--- NOTE | 2018-06-30 12:09 | Hospitalist Consultation ---
History of Present Illness Requesting Physician Dr Abby Suarez Reason for Consult medical management of comorbidities. Chief Complaint Fall, rib Fx History of Present Illness 72F sustained ground level fall over edge of tub. Has anterior R rib 6,7 Fx. Posterior R 9-12 rib Fx. Denies any previous fever, chills, n/v. No presyncopal episodes and denies LOC with this fall. She also had fall in May which was a mechanical fall. She is under treatment from urology for chronic UTI and is currently taking Bactrim. She is anticoagulated on Xarelto for afib. History Problems: (1) CAD (coronary artery disease) Status: Chronic (2) CKD (chronic kidney disease) stage 3, GFR 30-59 ml/min Status: Chronic (3) Pulmonary nodule Status: Chronic Comment: Has had pulm nodule prior though in a different location by radiology review. Will need to see Damian NIEVES for outpt workup and follow up. (4) HTN (hypertension) Status: Chronic (5) CHRONIC ATRIAL FIBRILLATION Status: Chronic Home Meds Active Scripts Sulfamethoxazole/Trimet 800-160 Mg Tab (BACTRIM DS TABLET) 1 Each Tablet, 1 TAB PO Q12H PRN for UTI symptoms for 3 Days, #20 TAB 3 Refills Prov:MACHELLE ISBELL MD 06/18/18 Mirabegron (MYRBETRIQ) 50 Mg Tab.er.24h, 50 MG PO DAILY for overactive bladder for 30 Days, #30 CAP 3 Refills Prov:MACHELLE ISBELL MD 06/18/18 Carvedilol (CARVEDILOL) 25 Mg Tablet, 25 MG PO BID, #60 Prov:SARAVANAN PADILLA MD 04/01/18 Rivaroxaban (XARELTO 10 MG TAB (OR EQUIV)) 10 Mg Tablet, 15 MG PO QDAY@1700, #30 TAB Prov:YARELI THURMAN MD 09/02/17 Diltiazem Hcl (DILTIAZEM 24HR CD) 120 Mg Cap.er.24h, 240 MG PO QDAY, #60 Prov:UMM APONTE MD 04/15/17 Digoxin (Digox) 125 Mcg Tablet, 0.125 MG PO QDAY, #30 TAB 1 Refill Prov:RAMIN THURMAN MD 02/14/17 Reported Medications Phenazopyridine HCl (Azo Urinary Pain Relief) 97.5 Mg Tablet, 1 TAB PO PRN 06/06/18 Furosemide (FUROSEMIDE) 40 Mg Tablet, 1 TAB PO PRN, TAB 04/28/18 Atorvastatin Calcium (LIPITOR) 20 Mg Tablet, 1 TAB PO HS, TAB 04/01/18 Oxygen (OXYGEN) Inha, 3 L INH, L 06/18/17 Lysine (LYSINE) 500 Mg Tablet, 500 MG PO DAILY 04/27/16 Cranberry Extract (CRANBERRY) 200 Mg Capsule, 200 MG PO BID, CAPSULE 11/11/14 Glucosamine Sulfate 2KCL (GLUCOSAMINE) 1,000 Mg Tablet, 1000 MG PO BID 04/14/14 Multivitamin (MULTI VITAMIN DAILY) 1 Each Tablet, 1 EACH PO QDAY 04/14/14 Insulin Human Regular (Humulin R) 100 U/Ml Vial, 5 U SC TIDCF SS FOR BS 200-250 2 UNITS, 251-300 4 UNITS, 301-350 6 UNITS, 351-400 8 UNITS, OVER 400 10 UNITS 03/04/12 Nph, Human Insulin Isophane (HUMULIN N) 100 Unit/1 Ml Vial, 45 UNIT SQ BIDBS 03/04/12 Allergies: Coded Allergies: ketorolac (Verified Allergy, Severe, COULD NOT SEE, N&V, THOUGHT SHE WAS GOING TO , 06/30/18) ibuprofen (Verified Adverse Reaction, Unknown, DIZZINESS, NAUSEA, VOMITING, 06/30/18) Patient History: UTI (urinary tract infection) MOTHER (CKD), Hx Smoking: No Smoking Status: Never Smoker Exposure to Second Hand Smoke?: Yes (daugher smokes) Caffeine Intake: Soda Caffeine/Cups Per Day: occ 1 can Hx Alcohol Use: No Hx Substance Use Disorder: No Social Drug Use: Never Review of Systems All Systems Reviewed/Normal: Yes, Except as Noted Constitutional: No Fever Neurological: No Syncope, No Confusion Respiratory: Other (chest pain) Genitourinary: Dysuria Exam Vital Signs Vital Signs Date Time Temp Pulse Resp B/P (MAP) Pulse Ox O2 Delivery O2 Flow Rate FiO2 06/30/18 11:17 111 06/30/18 06:45 96 06/30/18 04:30 170/92 (118) 06/30/18 01:23 98.5 17 Room Air General Appearance: Alert, Awake (mild distress from pain) Neuro: No Gross deficits Eyes: PERRLA ENT: Normal Cardiovascular: Other (irregularly irregular) Respiratory: No Respiratory Distress GI: Abd Soft and Non-Tender Lymph: Cervical Nodes Benign Musculoskeletal: No Weakness/Pain Extremities: Soft and Non Tender, Warm, Pulses, Perfused, Edema (moderate to knee) Integumentary: Skin Intact without Lesion / Mass Psych: Alert & Oriented X3 Medical Decision Making Data Points Result Diagram: 06/30/1814606/30/18146 EKG / Imaging Imaging CT - IMPRESSION: 1. Multiple right rib fractures as described. No pneumothorax. 2. Small volume of pleural fluid on the left and trace pleural fluid on the right. Small hiatal hernia. 3. 8 x 6 mm subpleural nodule in the right upper lobe. Although the images are not available at the time of dictation, there is reportedly a nodule in this l ocation prior exams. Recommend comparison with this imaging when available. 4. Multiple additional findings as described. Assessment and Plan Problems: (1) Ribs, multiple fractures Status: Acute Assessment & Plan: Multiple R sided rib Fx. Management and pain control per surgery. (2) CHRONIC ATRIAL FIBRILLATION Status: Chronic Assessment & Plan: Rate controlled. Continue diltiazem, digoxin, Coreg. Hold Xarelto for 24 hours to evaluate fro bleeding before resuming. (3) CKD (chronic kidney disease) stage 3, GFR 30-59 ml/min Status: Chronic Assessment & Plan: Stable, Cr baseline 1.4-1.5. Monitor and adjust dosing of renally cleared Rx based on function. (4) HTN (hypertension) Status: Chronic Assessment & Plan: Elevated on admission. Home Coreg, diltiazem restarted. May have component of pain elevating. Will add PRN Rx if needed. (5) CAD (coronary artery disease) Status: Chronic Assessment & Plan: Hx CABG. On Coreg, statin. Will continue. (6) Pulmonary nodule Status: Chronic Assessment & Plan: Chronic, appears to be stable in size. Follow up outpatient. (7) UTI (lower urinary tract infection) Status: Acute Assessment & Plan: Currently taking Bactrim for UTI prescribed by urology. Will continue Bactrim/ Venous Thromboembolism Antithrombotics Is Pt On Any Antithrombotics?: Yes Exam Sepsis Risk: No Definite Risk HERNANDEZ JEREMIAS BARRY DO Jun 30, 2018 12:09
[2018-06-30] MEDS: ACETAMINOPHEN(*)1000 MG/100 ML 100 ML IVPB SCH ×2 (12:30→18:09)
[2018-06-30] MEDS: INSULIN HUM LISPRO 100 UN/ML 3 ML VIAL SUBQ PRN ×2 (12:34→18:11)
[2018-06-30] MEDS: PROMETHAZINE 25 MG/ML 1 ML AMP IVP PRN ×2 (14:16→20:00)
[2018-06-30] MEDS: oxyCODONE HCL 5 MG CAP PO PRN ×2 (16:06→22:48)
[2018-06-30] MEDS: guaiFENesin 600 MG TABCR PO SCH (20:17)
[2018-06-30] MEDS: GABAPENTIN 300 MG CAP PO SCH (20:17)
[2018-06-30] MEDS: traMADol 50 MG TAB PO PRN (20:18)
[2018-06-30] MEDS: PATCH REMOVAL 1 EA TP SCH (20:18)
[2018-06-30] MEDS: ATORVASTATIN 10 MG TAB PO SCH (20:18)
[2018-07-01] VITALS (23 sets, daily range): BP systolic 130–188; BP diastolic 59–117
[2018-07-01] MEDS: ACETAMINOPHEN(*)1000 MG/100 ML 100 ML IVPB SCH ×5 (00:12→23:36)
[2018-07-01 05:05] LABS: PLATELET COUNT, AUTOMATED 232 K/uL (150-450)
[2018-07-01] MEDS: oxyCODONE HCL 5 MG CAP PO PRN ×2 (05:17→20:09)
--- NOTE | 2018-07-01 06:27 | General Surgery Progress Note ---
Subjective Progress Notes Subjective Main complaint is right chest wall pain. No abdominal pain or pain elsewhere. Physical Exam Vital Signs Date Time Temp Pulse Resp B/P (MAP) Pulse Ox O2 Delivery O2 Flow Rate FiO2 07/01/18 06:02 97.5 66 18 161/74 (103) 97 Nasal Cannula 3.0 Intake and Output 07/01/18 07:00 Intake Total 1288 ml Balance 1288 ml Intake Oral 800 ml IV Total 488 ml # Voids 8 General Appearance: Alert, Awake, No Acute Distress, Afebrile Neuro: No Gross deficits Eyes: PERRLA Cardiovascular: Other (Irregular) Respiratory: Other (Decreased BS in right base) GI: Soft and Non-Tender Extremities: Warm, Perfused Result Diagram: 07/01/18 0500 06/30/18 0147 Monitor Interpretation: Atrial Fibrillation Assessment and Plan Problems: (1) Ribs, multiple fractures Status: Acute Assessment & Plan: 06/30/2018: Admit to ICU, aggressive pulm toilet, trend FVC, multimodal analgesia, daily CXR. Given her severe cardiopulm disease she is at high risk for morbidity and mortality from this injury. She confirms she is DNR/DNI. She declines consideration of epidural catheter for pain control. Will ask internal medicine to consult given severe multisystem chronic disease. 07/01/18: Doing reasonably well. Has been down to baseline O2 use (3L) but often needs to be increased to 5L at times. Continue aggressive pulmonary hygiene, ambulation, pain control, etc. Will watch in ICU today. If she does well today then will consider transfer to Med/Surg tomorrow. (2) Pulmonary nodule Status: Chronic Assessment & Plan: Has had pulm nodule prior though in a different location by radiology review. Will need to see Pulm for outpt workup and follow up. Condition Stable Time Spent: < 30 min Exam Sepsis Risk: No Definite Risk Problem Qualifiers (1) Ribs, multiple fractures: Encounter type: initial encounter Fracture type: closed Laterality: right Qualified Codes: S22.41XA - Multiple fractures of ribs, right side, initial encounter for closed fracture SANJU PEOPLES MD Jul 01, 2018 06:27
[2018-07-01] MEDS: LIDOCAINE 5% PATCH TP SCH (08:41)
[2018-07-01] MEDS ORDERED: DILTIAZEM CD 120 MG CAPCR PO SCH (09:00)
--- NOTE | 2018-07-01 09:17 | RADIOLOGY IMAGING REPORT ---
FACILITY: [facility] [place] PATIENT NAME: Elena Saunders : 1945 MR: [id number] V: [id number] EXAM DATE: ORDERING PHYSICIAN: DIVYA GONZALES TECHNOLOGIST: Location: [facility] [place] Patient: Elena Saunders : 1945 Visit/Account:[id number] Date of Sevice: 07/01/2018 Chest single view: HISTORY: Rib fracture. COMPARISON: 04/30/2018 FINDINGS: Frontal view of the chest: Cardiomediastinal silhouette is within normal limits and unchang ed. Changes of median sternotomy are noted. Atherosclerotic changes are present in the aorta. Minimally displaced fractures of the right sixth and seventh ribs again noted with minimal adjacent p leural reaction. There is no pneumothorax identified. Left basilar opacity, combination of atelecta sis and/or infiltrate and pleural fluid and/or thickening noted. Left mid and upper lung are clear. Changes of median sternotomy are noted. IMPRESSION: 1. Right lateral sixth and seventh rib fractures. There is no pneumothorax or other apparent compli cation. 2. Pleural parenchymal abnormalities in the left lung base, stable. Report Dictated By: Colette Cespedes MD at 07/01/2018 9:10 AM Report E-Signed By: Colette Cespedes MD at 07/01/2018 9:14 AM WSN:[id number]
[2018-07-01] MEDS: INSULIN HUM LISPRO 100 UN/ML 3 ML VIAL SUBQ PRN ×4 (09:20→20:26)
[2018-07-01] MEDS: guaiFENesin 600 MG TABCR PO SCH ×2 (09:21→20:25)
[2018-07-01] MEDS: CARVEDILOL 25 MG TABLET PO SCH ×2 (09:21→20:25)
[2018-07-01] MEDS: GABAPENTIN 300 MG CAP PO SCH ×2 (09:22→20:24)
[2018-07-01] MEDS: DIGOXIN 0.125 MG TAB PO SCH (09:22)
[2018-07-01] MEDS: INSULIN GLARGINE 100 U/ML 3 ML PEN SUBQ SCH (09:23)
--- NOTE | 2018-07-01 09:36 | Hospitalist Progress Note ---
Subjective Progress Notes Subjective This patient was admitted for rib fractures after a fall. She had no acute events overnight. Patient Complains of: Cardiovascular: No: Chest Pain Respiratory: No: Shortness of Breath Physical Exam Vital Signs Date Time Temp Pulse Resp B/P (MAP) Pulse Ox O2 Delivery O2 Flow Rate FiO2 07/01/18 09:22 92 07/01/18 08:32 39 175/114 (134) 86 Nasal Cannula 3.0 07/01/18 07:00 97.9 Intake and Output 07/01/18 07:00 Intake Total 1288 ml Balance 1288 ml Intake Oral 800 ml IV Total 488 ml # Voids 8 Cardiovascular: Regular Rate and Rhythm Respiratory: Clear to Auscultation Result Diagram: 07/01/18 0500 07/01/18 0500 Monitor Interpretation: Atrial Fibrillation Assessment and Plan Problems: (1) Ribs, multiple fractures Status: Acute Assessment & Plan: She is being managed by general surgery. (2) CHRONIC ATRIAL FIBRILLATION Status: Chronic Assessment & Plan: She is on chronic treatment with diltiazem, carvedilol, digoxin, and Xarelto. The Xarelto is on hold secondary to her fractures, but can likely be restarted tomorrow. She has been having significant bradycardia on the monitor. We have held her diltiazem secondary to this. (3) HTN (hypertension) Status: Chronic Assessment & Plan: She is on the diltiazem and carvedilol as above. We will monitor her pressures now that the diltiazem has been discontinued. (4) CKD (chronic kidney disease) stage 3, GFR 30-59 ml/min Status: Chronic (5) Pulmonary nodule Status: Chronic Assessment & Plan: Chronic, appears to be stable in size. Follow up outpatient. (6) UTI (lower urinary tract infection) Status: Acute Assessment & Plan: Currently taking Bactrim for UTI prescribed by urology. Will continue Bactrim/ Exam Sepsis Risk: No Definite Risk Problem Qualifiers (1) Ribs, multiple fractures: Encounter type: initial encounter Fracture type: closed Laterality: right Qualified Codes: S22.41XA - Multiple fractures of ribs, right side, initial encounter for closed fracture (2) HTN (hypertension): Hypertension type: essential hypertension Qualified Codes: I10 - Essential (primary) hypertension SANJU ESCALANTE DO Jul 01, 2018 09:35
[2018-07-01] MEDS: MIRABEGRON 25 MG ER TAB PO SCH (09:43)
[2018-07-01] MEDS: traMADol 50 MG TAB PO PRN (10:46)
[2018-07-01] MEDS ORDERED: INSULIN HUM LISPRO 100 UN/ML 3 ML VIAL SUBQ PRN (17:40)
[2018-07-01] MEDS ORDERED: MAGNESIUM HYDROXIDE* 30ML UDCP PO PRN (19:05)
[2018-07-01] MEDS: TRIMETH/SULFA DS 160-800MG TAB PO SCH (20:24)
[2018-07-01] MEDS: PATCH REMOVAL 1 EA TP SCH (20:25)
[2018-07-01] MEDS: ATORVASTATIN 10 MG TAB PO SCH (20:25)
[2018-07-01] MEDS: DOCUSATE SODIUM 100 MG CAP PO SCH (20:25)
[2018-07-02] VITALS (13 sets, daily range): BP systolic 143–188; BP diastolic 70–108
[2018-07-02 05:04] LABS: PLATELET COUNT, AUTOMATED 206 K/uL (150-450)
[2018-07-02] MEDS: ACETAMINOPHEN(*)1000 MG/100 ML 100 ML IVPB SCH (06:04)
--- NOTE | 2018-07-02 07:01 | RADIOLOGY IMAGING REPORT ---
FACILITY: [facility] [place] PATIENT NAME: Elena Saunders : 1945 MR: [id number] V: [id number] EXAM DATE: ORDERING PHYSICIAN: DIVYA GONZALES TECHNOLOGIST: Location: [facility] [place] Patient: Elena Saunders : 1945 Visit/Account:[id number] Date of Sevice: 07/02/2018 PORTABLE CHEST: Indication: Follow-up evaluation of injury. Technique: A single frontal film was obtained. Comparison: 07/01/2018 Skeletal and soft tissue structures: Focal deformity in the right ribs appears stable. No other acute skeletal deformities are clearly identified. Heart and mediastinum: Stable. Lung delgado: There is persistent linear opacity at right base, compatible with atelectasis. There is persistent consolidation at the left base. No new parenchymal opacities are identified. Pleural spaces: Persistent small left effusion. No evidence of pneumothorax. Impression: No acute interval change. Report Dictated By: Bayron Vaughan MD at 07/02/2018 6:54 AM Report E-Signed By: Bayron Vaughan MD at 07/02/2018 6:56 AM [id number]
--- NOTE | 2018-07-02 07:26 | General Surgery Progress Note ---
Subjective Progress Notes Subjective Feels muscle spasms in right lower chest wall. No other complaints this morning. Physical Exam Vital Signs Date Time Temp Pulse Resp B/P (MAP) Pulse Ox O2 Delivery O2 Flow Rate FiO2 07/02/18 06:02 86 16 181/82 (115) 97 Nasal Cannula 3.0 07/02/18 05:00 98.2 Intake and Output 07/02/18 07:00 Intake Total 1036 ml Balance 1036 ml Intake Oral 690 ml IV Total 346 ml # Voids 5 General Appearance: Alert, Awake, No Acute Distress, Afebrile Respiratory: Clear to Auscultation GI: Soft and Non-Tender Extremities: Warm, Perfused Result Diagram: 07/02/18 0500 07/02/18 0500 Monitor Interpretation: Atrial Fibrillation Assessment and Plan Problems: (1) Ribs, multiple fractures Status: Acute Assessment & Plan: 06/30/2018: Admit to ICU, aggressive pulm toilet, trend FVC, multimodal analgesia, daily CXR. Given her severe cardiopulm disease she is at high risk for morbidity and mortality from this injury. She confirms she is DNR/DNI. She declines consideration of epidural catheter for pain control. Will ask internal medicine to consult given severe multisystem chronic disease. 07/01/18: Doing reasonably well. Has been down to baseline O2 use (3L) but often needs to be increased to 5L at times. Continue aggressive pulmonary hygiene, ambulation, pain control, etc. Will watch in ICU today. If she does w ell today then will consider transfer to Med/Surg tomorrow. 07/02/18: Doing well. Pt reassured that spasms will improve as she heals. Will try heating pad to right chest. Will transfer to Med/Surg today and continue pulmonary hygiene, ambulation, pain control, etc. Will start bowel regimen. If she does well over the next 24 hours then will look at possibly ECF after discharge for continued rehab. Pt is agreeable with this plan. (2) Pulmonary nodule Status: Chronic Assessment & Plan: Has had pulm nodule prior though in a different location by radiology review. Will need to see Pulm MD for outpt workup and follow up. Condition Stable. Time Spent: < 30 min Exam Sepsis Risk: No Definite Risk Problem Qualifiers (1) Ribs, multiple fractures: Encounter type: initial encounter Fracture type: closed Laterality: right Qualified Codes: S22.41XA - Multiple fractures of ribs, right side, initial encounter for closed fracture SANJU PEOPLES MD Jul 02, 2018 07:26
--- NOTE | 2018-07-02 07:55 | Hospitalist Progress Note ---
Subjective Progress Notes Subjective She denies SOB. Slept well. HR controlled without lows. BP elevated. Physical Exam Vital Signs Date Time Temp Pulse Resp B/P (MAP) Pulse Ox O2 Delivery O2 Flow Rate FiO2 07/02/18 06:02 86 16 181/82 (115) 97 Nasal Cannula 3.0 07/02/18 05:00 98.2 Intake and Output 07/02/18 07:00 Intake Total 1036 ml Balance 1036 ml Intake Oral 690 ml IV Total 346 ml # Voids 5 General Appearance: Alert, Awake, No Acute Distress Cardiovascular: Other (Irreg, irreg, no m/r/g) Respiratory: Clear to Auscultation Extremities: No Edema Result Diagram: 07/02/18 0500 07/02/18 0500 Monitor Interpretation: Atrial Fibrillation Assessment and Plan Problems: (1) Ribs, multiple fractures Status: Acute Assessment & Plan: She is being managed by general surgery. (2) CHRONIC ATRIAL FIBRILLATION Status: Chronic Assessment & Plan: She is chronically in atrial fibrillation and was on chronic treatment with diltiazem, carvedilol, digoxin, and Xarelto. Digoxin level was therapeutic on 07/01. The Xarelto was on hold secondary to her fractures, but will restart today at renal dosing. She was having significant bradycardia, so diltiazem was stopped. Heart rates are now better controlled. (3) HTN (hypertension) Status: Chronic Assessment & Plan: She was on the diltiazem and carvedilol as above. Will start HCTZ because diltiazem has been stopped and because she normally takes Lasix almost daily for edema. Follow BMP. (4) CKD (chronic kidney disease) stage 3, GFR 30-59 ml/min Status: Chronic (5) Pulmonary nodule Status: Chronic Assessment & Plan: Chronic, appears to be stable in size. Follow up outpatient. (6) UTI (lower urinary tract infection) Status: Acute Assessment & Plan: Currently taking Bactrim for UTI prescribed by urology. Will continue Bactrim/ Exam Sepsis Risk: No Definite Risk Problem Qualifiers (1) Ribs, multiple fractures: Encounter type: initial encounter Fracture type: closed Laterality: right Qualified Codes: S22.41XA - Multiple fractures of ribs, right side, initial encounter for closed fracture (2) HTN (hypertension): Hypertension type: essential hypertension Qualified Codes: I10 - Essential (primary) hypertension UMM APONTE MD Jul 02, 2018 07:55
[2018-07-02] MEDS ORDERED: MAGNESIUM HYDROXIDE* 30ML UDCP PO ONE (08:00)
[2018-07-02] MEDS: INSULIN HUM LISPRO 100 UN/ML 3 ML VIAL SUBQ PRN ×3 (08:02→21:58)
[2018-07-02] MEDS: LIDOCAINE 5% PATCH TP SCH (09:09)
[2018-07-02] MEDS: RIVAROXABAN 10 MG TAB PO SCH (09:11)
[2018-07-02] MEDS: HYDROCHLOROTHIAZIDE 25 MG TAB PO SCH (09:11)
[2018-07-02] MEDS: DIGOXIN 0.125 MG TAB PO SCH (09:11)
[2018-07-02] MEDS: CARVEDILOL 25 MG TABLET PO SCH ×2 (09:12→21:53)
[2018-07-02] MEDS: TRIMETH/SULFA DS 160-800MG TAB PO SCH (09:12)
[2018-07-02] MEDS: guaiFENesin 600 MG TABCR PO SCH ×2 (09:12→21:53)
[2018-07-02] MEDS: GABAPENTIN 300 MG CAP PO SCH ×2 (09:12→21:52)
[2018-07-02] MEDS: MIRABEGRON 25 MG ER TAB PO SCH (09:13)
[2018-07-02] MEDS: POLYETHYLENE GLYCOL 17 GM PKT PO SCH (09:13)
[2018-07-02] MEDS: DOCUSATE SODIUM 100 MG CAP PO SCH ×2 (09:13→21:52)
[2018-07-02] MEDS: INSULIN GLARGINE 100 U/ML 3 ML PEN SUBQ SCH (09:13)
--- NOTE | 2018-07-02 12:22 | Medical Nutrition Therapy ---
Nutrition Anthropometrics Height (Inches): 67.00 Height (Calculated Centimeters: [phone] Weight (Pounds): 168 Weight (Calculated Kilograms): 76.289 BMI: 26.3 Arnoldo Nutrition Score: Probably Inadequate Arnoldo Nutrition Risk Score: 15 Dietary Referral Nutrition Risk Factors: Special Diet Nutrition Risk Comment: Physical Findings Physical Appearance: Overweight BMI 25-29 Skin Appearance Skin Appearance: Edema Edema Location Modifier: Both Edema Location: Leg Type of Edema: Degree of Edema: 1+ Gastrointestinal Symptoms GI Symtoms: Nausea, Vomiting Tube Present: Bowel Sounds: Recent Bowel Pattern: Stool Characteristics: Nutritional Diagnosis Nutritional Risk Acuity 2: Blood Glucose > 300mg/dl Nutritional Risk Acuity 3: Fair Appetite Nutritional Risk Acuity 4: Good Appetite Past Medical History: CAD, HTN, T2DM, CKD-3, non-Hodkins lymphoma, CHF, chronic edema, chronic UTI, hypercholesteremia Nutritional Acuity: 2-Moderate Nutrition Diagnosis: Increased Nutrient Needs Nutrition Etiology: Psychological Issues, Physiological Causes Nutrition Problem/Etiology/Sym: Increased nutrient needs r/t psysiological causes AEB stress of ICU, elevated BG Energy Requirement: 1700 (M-SJ *1.3) Protein Requirement: 75 (1g/kg) Fluid Requirement: 1700 (1ml/kg) Diet Type: Diabetic Nutrition Intervention: Cont diet as ordered, Encourage intake, Check glucose Drug: Diuretics Nutrition Monitoring & Eval Nutrition Goals: Eat 75-100% Meal, Drink > 1500 cc/day RD Patient Assessment Time: [address] Assessment Type: RD Assessment Patient Nutrition Acuity: 2-Moderate Follow Up Date: Jul 06, 2018 Nutritional Comment: 06/30/18 Pt admitted for multiple rib fractures d/t fall in bathroom. Pt overwt with BMI of 26.62. Alb 3.5, Glu 235. Receiving Diabetes diet with no reports of intake. Follow labs, intake, etc. -DRT 07/02 Pt moved from ICU to med/surg. Pt eating 75-100% of meals. Pt is T2DM and receving insulin in addition to a Diabetic Diet. Elevated BG ranging from 200-400, but could be due to stress of hospitalization. Will follow. DREW HARLEY Jul 02, 2018 10:19
[2018-07-02] MEDS: traMADol 50 MG TAB PO PRN ×2 (14:48→21:54)
--- NOTE | 2018-07-02 14:54 | Miscellaneous Provider Note ---
Miscellaneous Provider Note Note The patient reports being on Bactrim for 10 days. She has had UTI sxs for 5 years that don't seem to improve with antibiotics. Will stop Bactrim and follow for fever or worsening of symptoms. UMM APONTE MD Jul 02, 2018 14:54
--- NOTE | 2018-07-02 17:26 | Antimicrobial Stewardship ---
Antimicrobial Stewardship Significant PMH: Yes (Pt has history of repeated UTI per Dr. Jara) Comment 72 yo F with a history of repeated UTI, seen by urology in the outpatient clinic. Per record, pt has a prescription for Bactrim DS 1 tab po BID x 3 days PRN for UTI. With her history of UTI, pt has prescription for antibiotics to take at home when symptomatic. UA done 06/30/18 was contaminated, afebrile, WBC wnl. Per discussion with hospitalist, will review and D/C antibiotics. Lisa Schroeder, PharmD, OP LISA SCHROEDER Jul 02, 2018 17:26
[2018-07-02] MEDS: PATCH REMOVAL 1 EA TP SCH (21:00)
[2018-07-02] MEDS: ATORVASTATIN 10 MG TAB PO SCH (21:53)
[2018-07-03] VITALS (14 sets, daily range): BP systolic 140–193; BP diastolic 72–120
[2018-07-03] MEDS: oxyCODONE HCL 5 MG CAP PO PRN ×2 (06:03→16:09)
[2018-07-03 06:17] LABS: PLATELET COUNT, AUTOMATED 269 K/uL (150-450)
--- NOTE | 2018-07-03 06:33 | RADIOLOGY IMAGING REPORT ---
FACILITY: [facility] PATIENT NAME: Elena Saunders : 1945 MR: [id number] V: [id number] EXAM DATE: ORDERING PHYSICIAN: DIVYA GONZALES TECHNOLOGIST: Location: [facility] Patient: Elena Saunders : 1945 Visit/Account:[id number] Date of Sevice: 07/03/2018 PORTABLE CHEST: Indication: Follow-up evaluation of injury. Technique: A single frontal film was obtained. Comparison: 07/02/2018 Skeletal and soft tissue structures: Stable. Heart and mediastinum: Stable. Lung delgado: There are persistent linear atelectatic opacities at both bases. There is improved expan demetrice of the left lower lobe. No new focal opacities are identified. Pleural spaces: No evidence of pneumothorax. Persistent small left effusion. Impression: Slight interval improvement. Report Dictated By: Bayron Vaughan MD at 07/03/2018 6:27 AM Report E-Signed By: Bayron Vaughan MD at 07/03/2018 6:29 AM WSN:[id number]
--- NOTE | 2018-07-03 06:57 | General Surgery Progress Note ---
Subjective Progress Notes Subjective No new complaints this morning. Intercostal muscle spasms are a little improved this morning. Passing lots of flatus; she feels a BM is close. Physical Exam Vital Signs Date Time Temp Pulse Resp B/P (MAP) Pulse Ox O2 Delivery O2 Flow Rate FiO2 07/03/18 04:02 95 178/94 (122) 98 Nasal Cannula 2.0 07/03/18 00:18 99.2 20 Intake and Output 07/03/18 06:59 Intake Total 695 ml Output Total 100 ml Balance 595 ml Intake Oral 695 ml Output Urine Total 100 ml # Voids 5 General Appearance: Alert, Awake, No Acute Distress, Afebrile Respiratory: Clear to Auscultation GI: Soft and Non-Tender Extremities: Warm, Perfused Result Diagram: 07/03/18 0600 07/03/18 0600 Monitor Interpretation: Atrial Fibrillation Assessment and Plan Problems: (1) Ribs, multiple fractures Status: Acute Assessment & Plan: 06/30/2018: Admit to ICU, aggressive pulm toilet, trend FVC, multimodal analgesia, daily CXR. Given her severe cardiopulm disease she is at high risk for morbidity and mortality from this injury. She confirms she is DNR/DNI. She declines consideration of epidural catheter for pain control. Will ask internal medicine to consult given severe multisystem chronic disease. 07/01/18: Doing reasonably well. Has been down to baseline O2 use (3L) but often needs to be increased to 5L at times. Continue aggressive pulmonary hygiene, ambulation, pain control, etc. Will watch in ICU today. If she does well today then will consider transfer to Med/Surg tomorrow. 07/02/18: Doing well. Pt reassured that spasms will improve as she heals. Will try heating pad to right chest. Will transfer to Med/Surg today and continue pulmonary hygiene, ambulation, pain control, etc. Will start bowel regimen. If she does well over the next 24 hours then will look at possibly ECF after discharge for continued rehab. Pt is agreeable with this plan. 07/03/18: Doing well. Will ask for ECF evaluation today. She is ready to go up to ECF, if approved and if OK with Hospitalists, at any time for continued physical rehab. (2) Pulmonary nodule Status: Chronic Assessment & Plan: Has had pulm nodule prior though in a different location by radiology review. Will need to see Pulm for outpt workup and follow up. Condition Stable. Time Spent: < 30 min Exam Sepsis Risk: No Definite Risk Problem Qualifiers (1) Ribs, multiple fractures: Encounter type: initial encounter Fracture type: closed Laterality: right Qualified Codes: S22.41XA - Multiple fractures of ribs, right side, initial encounter for closed fracture SANJU PEOPLES MD Jul 03, 2018 06:57
[2018-07-03] MEDS: INSULIN HUM LISPRO 100 UN/ML 3 ML VIAL SUBQ PRN ×4 (08:14→21:03)
[2018-07-03] MEDS ORDERED: MOISTURIZING CREAM 120 GM JAR TP PRN (08:15)
[2018-07-03] MEDS: POLYETHYLENE GLYCOL 17 GM PKT PO SCH (08:54)
[2018-07-03] MEDS: CARVEDILOL 25 MG TABLET PO SCH ×2 (09:01→21:11)
[2018-07-03] MEDS: MIRABEGRON 25 MG ER TAB PO SCH (09:01)
[2018-07-03] MEDS: GABAPENTIN 300 MG CAP PO SCH ×2 (09:01→21:11)
[2018-07-03] MEDS: DOCUSATE SODIUM 100 MG CAP PO SCH ×2 (09:02→21:11)
[2018-07-03] MEDS: DIGOXIN 0.125 MG TAB PO SCH (09:02)
[2018-07-03] MEDS: RIVAROXABAN 10 MG TAB PO SCH (09:03)
[2018-07-03] MEDS: HYDROCHLOROTHIAZIDE 25 MG TAB PO SCH (09:03)
[2018-07-03] MEDS: guaiFENesin 600 MG TABCR PO SCH ×2 (09:03→21:11)
[2018-07-03] MEDS: LIDOCAINE 5% PATCH TP SCH (09:10)
[2018-07-03] MEDS: INSULIN GLARGINE 100 U/ML 3 ML PEN SUBQ SCH (09:11)
--- NOTE | 2018-07-03 10:45 | Hospitalist Progress Note ---
Subjective Progress Notes Subjective She reports some minor improvements, but continued rib/chest pain. No obvious bleeding with resumption of the Xarelto. Physical Exam Vital Signs Date Time Temp Pulse Resp B/P (MAP) Pulse Ox O2 Delivery O2 Flow Rate FiO2 07/03/18 09:32 95 Nasal Cannula 2.0 07/03/18 09:02 80 07/03/18 08:59 170/82 (111) 07/03/18 07:46 98.3 24 Intake and Output 07/03/18 07:00 Intake Total 695 ml Output Total 100 ml Balance 595 ml Intake Oral 695 ml Output Urine Total 100 ml # Voids 5 General Appearance: Alert, Awake Cardiovascular: Other (Irregular) Result Diagram: 07/03/18 0600 07/03/18 0600 Monitor Interpretation: Atrial Fibrillation Assessment and Plan Problems: (1) Ribs, multiple fractures Status: Acute Assessment & Plan: She is being managed by general surgery. (2) CHRONIC ATRIAL FIBRILLATION Status: Chronic Assessment & Plan: She is chronically in atrial fibrillation and was on chronic treatment with diltiazem, carvedilol, digoxin, and Xarelto. Digoxin level was therapeutic on 07/01. The Xarelto was on hold secondary to her fractures, but was restarted yesterday at renal dosing. She was having significant bradycardia, so diltiazem was stopped. Heart rates are now better on digoxin and carvedilol. (3) HTN (hypertension) Status: Chronic Assessment & Plan: She was on the diltiazem and carvedilol as above. Will start HCTZ because diltiazem has been stopped and because she normally takes Lasix almost daily for edema. Follow BMP. (4) CKD (chronic kidney disease) stage 3, GFR 30-59 ml/min Status: Chronic (5) Pulmonary nodule Status: Chronic Assessment & Plan: Chronic, appears to be stable in size. Follow up outpatient. (6) UTI (lower urinary tract infection) Status: Acute Assessment & Plan: She had been taking Bactrim for UTI prescribed by urology. We have now stopped the Bactrim and will monitor for symptoms. Exam Sepsis Risk: No Definite Risk Problem Qualifiers (1) Ribs, multiple fractures: Encounter type: initial encounter Fracture type: closed Laterality: right Qualified Codes: S22.41XA - Multiple fractures of ribs, right side, initial encounter for closed fracture (2) HTN (hypertension): Hypertension type: essential hypertension Qualified Codes: I10 - Essential (primary) hypertension RAMIN THURMAN MD Jul 03, 2018 10:45
[2018-07-03] MEDS: ACETAMINOPHEN 325 MG TAB PO PRN ×2 (14:36→21:10)
[2018-07-03] MEDS: PATCH REMOVAL 1 EA TP SCH (21:00)
[2018-07-03] MEDS: traMADol 50 MG TAB PO PRN (21:11)
[2018-07-03] MEDS: ATORVASTATIN 10 MG TAB PO SCH (21:11)
[2018-07-04] MEDS: ACETAMINOPHEN 325 MG TAB PO PRN (05:51)
[2018-07-04] MEDS: traMADol 50 MG TAB PO PRN (05:51)
--- NOTE | 2018-07-04 07:02 | Short(Outpt) Discharge Summary ---
Discharge Summary Reason for Hosp/Final Diag: (1) Ribs, multiple fractures Status: Acute Hospital Course & Plan: 06/30/2018: Admit to ICU, aggressive pulm toilet, trend FVC, multimodal analgesia, daily CXR. Given her severe cardiopulm disease she is at high risk for morbidity and mortality from this injury. She confirms she is DNR/DNI. She declines consideration of epidural catheter for pain control. Will ask internal medicine to consult given severe multisystem chronic disease. 07/01/18: Doing reasonably well. Has been down to baseline O2 use (3L) but often needs to be increased to 5L at times. Continue aggressive pulmonary hygiene, ambulation, pain control, etc. Will watch in ICU today. If she does well today then will consider transfer to Med/Surg tomorrow. 07/02/18: Doing well. Pt reassured that spasms will improve as she heals. Will try heating pad to right chest. Will transfer to Med/Surg today and continue pulmonary hygiene, ambulation, pain control, etc. Will start bowel regimen. If she does well over the next 24 hours then will look at possibly ECF after discharge for continued rehab. Pt is agreeable with this plan. 07/03/18: Doing well. Will ask for ECF evaluation today. She is ready to go up to ECF, if approved and if OK with Hospitalists, at any time for continued physical rehab. 07/04/18: Doing well. Will transfer to ECF today for continued physical rehabilitation. (2) Pulmonary nodule Status: Chronic Hospital Course & Plan: Has had pulm nodule prior though in a different location by radiology review. Will need to see Damian NIEVES for outpt workup and follow up. Departure Discharge to: [facility] E[facility] Discharge Instructions Home Meds Active Scripts Sulfamethoxazole/Trimet 800-160 Mg Tab (BACTRIM DS TABLET) 1 Each Tablet, 1 TAB PO Q12H PRN for UTI symptoms for 3 Days, #20 TAB 3 Refills Prov:MACHELLE ISBELL MD 06/18/18 Mirabegron (MYRBETRIQ) 50 Mg Tab.er.24h, 50 MG PO DAILY for overactive bladder for 30 Days, #30 CAP 3 Refills Prov:MACHELLE ISBELL MD 06/18/18 Carvedilol (CARVEDILOL) 25 Mg Tablet, 25 MG PO BID, #60 Prov:SARAVANAN PADILLA MD 04/01/18 Rivaroxaban (XARELTO 10 MG TAB (OR EQUIV)) 10 Mg Tablet, 15 MG PO QDAY@1700, #30 TAB Prov:YARELI THURMAN MD 09/02/17 Diltiazem Hcl (DILTIAZEM 24HR CD) 120 Mg Cap.er.24h, 240 MG PO QDAY, #60 Prov:UMM APONTE MD 04/15/17 Digoxin (Digox) 125 Mcg Tablet, 0.125 MG PO QDAY, #30 TAB 1 Refill Prov:RAMIN THURMAN MD 02/14/17 Reported Medications Phenazopyridine HCl (Azo Urinary Pain Relief) 97.5 Mg Tablet, 1 TAB PO PRN 06/06/18 Furosemide (FUROSEMIDE) 40 Mg Tablet, 1 TAB PO PRN, TAB 04/28/18 Atorvastatin Calcium (LIPITOR) 20 Mg Tablet, 1 TAB PO HS, TAB 04/01/18 Oxygen (OXYGEN) Inha, 3 L INH, L 06/18/17 Lysine (LYSINE) 500 Mg Tablet, 500 MG PO DAILY 04/27/16 Cranberry Extract (CRANBERRY) 200 Mg Capsule, 200 MG PO BID, CAPSULE 11/11/14 Glucosamine Sulfate 2KCL (GLUCOSAMINE) 1,000 Mg Tablet, 1000 MG PO BID 04/14/14 Multivitamin (MULTI VITAMIN DAILY) 1 Each Tablet, 1 EACH PO QDAY 04/14/14 Insulin Human Regular (Humulin R) 100 U/Ml Vial, 5 U SC TIDCF SS FOR BS 200-250 2 UNITS, 251-300 4 UNITS, 301-350 6 UNITS, 351-400 8 UNITS, OVER 400 10 UNITS 03/04/12 Nph, Human Insulin Isophane (HUMULIN N) 100 Unit/1 Ml Vial, 45 UNIT SQ BIDBS 03/04/12 Diet: Regular Activity: As Tolerated Problem Qualifiers (1) Ribs, multiple fractures: Encounter type: initial encounter Fracture type: closed Laterality: right Qualified Codes: S22.41XA - Multiple fractures of ribs, right side, initial encounter for closed fracture SANJU PEOPLES MD Jul 04, 2018 07:02
[2018-07-04 07:50] VITALS: BP 178/117
[2018-07-04] MEDS: INSULIN HUM LISPRO 100 UN/ML 3 ML VIAL SUBQ PRN (07:50)
[2018-07-04] MEDS: POLYETHYLENE GLYCOL 17 GM PKT PO SCH (09:27)
[2018-07-04] MEDS: guaiFENesin 600 MG TABCR PO SCH (09:28)
[2018-07-04] MEDS: INSULIN GLARGINE 100 U/ML 3 ML PEN SUBQ SCH (09:28)
[2018-07-04] MEDS: HYDROCHLOROTHIAZIDE 25 MG TAB PO SCH (09:28)
[2018-07-04] MEDS: MIRABEGRON 25 MG ER TAB PO SCH (09:28)
[2018-07-04] MEDS: CARVEDILOL 25 MG TABLET PO SCH (09:29)
[2018-07-04] MEDS: DIGOXIN 0.125 MG TAB PO SCH (09:29)
[2018-07-04] MEDS: DOCUSATE SODIUM 100 MG CAP PO SCH (09:30)
[2018-07-04] MEDS: RIVAROXABAN 10 MG TAB PO SCH (09:30)
[2018-07-04] MEDS: GABAPENTIN 300 MG CAP PO SCH (09:30)
[2018-07-04] MEDS: oxyCODONE HCL 5 MG CAP PO PRN (09:30)
[2018-07-04] MEDS: LIDOCAINE 5% PATCH TP SCH (09:32)
--- NOTE | 2018-07-04 10:40 | Hospitalist Progress Note ---
Subjective Progress Notes Subjective The patient is still having occasional muscle spasms. Breathing well. Staff reported that the patient got light headed with standing earlier this morning. Physical Exam Vital Signs Date Time Temp Pulse Resp B/P (MAP) Pulse Ox O2 Delivery O2 Flow Rate FiO2 07/04/18 10:01 Nasal Cannula 07/04/18 09:29 86 07/04/18 09:12 95 3.0 07/04/18 07:50 98.3 16 178/117 (137) Intake and Output 07/04/18 07:00 Intake Total 1062 ml Balance 1062 ml Intake Oral 1062 ml # Voids 5 General Appearance: Alert, Awake, No Acute Distress Result Diagram: 07/03/18 0600 07/03/18 0600 Monitor Interpretation: Atrial Fibrillation Assessment and Plan Problems: (1) Ribs, multiple fractures Status: Acute Assessment & Plan: She is being managed by general surgery. Will add Flexeril for muscle spasm. The patient is going to [facility] for continued rehab. (2) CHRONIC ATRIAL FIBRILLATION Status: Chronic Assessment & Plan: She is chronically in atrial fibrillation and was on chronic treatment with diltiazem, carvedilol, digoxin, and Xarelto. Digoxin level was therapeutic on 07/01. The Xarelto was on hold secondary to her fractures, but was restarted on 07/02 at renal dosing. She was having significant bradycardia, so diltiazem was stopped. Heart rates are now better on digoxin and carvedilol. (3) HTN (hypertension) Status: Chronic Assessment & Plan: She was on the diltiazem and carvedilol as above. HCTZ started on 07/02 because diltiazem has been stopped and because she normally takes Lasix almost daily for edema. BP still elevated but she had some light headedness with standing this morning, so will not make any changes. Follow BMP. (4) CKD (chronic kidney disease) stage 3, GFR 30-59 ml/min Status: Chronic (5) Pulmonary nodule Status: Chronic Assessment & Plan: Chronic, appears to be stable in size. Follow up outpatient. (6) UTI (lower urinary tract infection) Status: Acute Assessment & Plan: She had been taking Bactrim for UTI prescribed by urology. We have now stopped the Bactrim and will monitor for symptoms. (7) Type II diabetes mellitus Status: Chronic Assessment & Plan: Chronically on NPH, but we have switched her to Lantus. Will increase to 35 units from 30 units because glucose running 285-364. She is getting SSI level 3 to cover. Exam Sepsis Risk: No Definite Risk Problem Qualifiers (1) Ribs, multiple fractures: Encounter type: initial encounter Fracture type: closed Laterality: right Qualified Codes: S22.41XA - Multiple fractures of ribs, right side, initial encounter for closed fracture (2) HTN (hypertension): Hypertension type: essential hypertension Qualified Codes: I10 - Essential (primary) hypertension UMM APONTE MD Jul 04, 2018 10:40
[2018-07-05] MEDS ORDERED: ATOR40TA24 PO (15:09)
== END 2018-07-04 10:14 | DRG 184 ==
LOC: ER 01:28 → MED 07:08 → ICU 07:09 → MED 07-02 11:47
PROVIDERS: ADMIT Surgery; ATTEND Surgery
DX: S22.41XA Multiple fractures of ribs, right side, initial encounter for closed fracture (principal); N39.0 Urinary tract infection, site not specified; I25.10 Atherosclerotic heart disease of native coronary artery without angina pectoris; I48.2 Chronic atrial fibrillation; I12.9 Hypertensive chronic kidney disease with stage 1 through stage 4 chronic kidney disease, or unspecified chronic kidney disease; N18.3 Chronic kidney disease, stage 3 (moderate); R91.1 Solitary pulmonary nodule; W18.39XA Other fall on same level, initial encounter; Z66 Do not resuscitate; Y92.002 Bathroom of unspecified non-institutional (private) residence as the place of occurrence of the external cause; Y99.8 Other external cause status; Z88.8 Allergy status to other drugs, medicaments and biological substances; Z79.01 Long term (current) use of anticoagulants; Z95.1 Presence of aortocoronary bypass graft
CPT/HCPCS: 36415; 36416; 71045; 71046; 71250; 74176; 80162; 81001; 82040; 82247; 82310; 82374; 82435; 82565; 82947; 82948; 84075; 84132; 84155; 84295; 84450; 84460; 84520; 85007; 85025; 85027; 93005; 94010; 96374; 96375; 97162; 97166; 99285; J0131; J1815; J2270; J2550; J3010; J7030; Q9967

== ENCOUNTER 2018-07-04 10:15 | Inpatient (IN) | payer MEDICARE, OTHER ==
[2018-06-30 10:58] VITALS: Ht 170.2 cm; Wt 71.2 kg
[~2018-07-04] VITALS: Ht 170.2 cm; Wt 71.2 kg
[2018-07-04 10:35] VITALS: BP 159/75
[2018-07-04] MEDS ORDERED: ALBUTEROL 2.5 MG/3 ML NEB NEB PRN (11:45)
[2018-07-04] MEDS ORDERED: IPRATROPIUM 0.5MG/2.5ML NEB NEB PRN (11:45)
[2018-07-04] MEDS ORDERED: MOISTURIZING CREAM 120 GM JAR TP PRN (11:45)
[2018-07-04] MEDS ORDERED: MAGNESIUM HYDROXIDE* 30ML UDCP PO PRN (11:45)
[2018-07-04] MEDS: INSULIN HUM LISPRO 100 UN/ML 3 ML VIAL SUBQ PRN ×3 (12:38→20:49)
--- NOTE | 2018-07-04 13:21 | Medical Nutrition Therapy ---
Nutrition Anthropometrics Height (Inches): 67 Weight (Pounds): 164 BMI: 25.7 Arnoldo Nutrition Score: Arnoldo Nutrition Risk Score: Dietary Referral Nutrition Risk Factors: Special Diet Nutrition Risk Comment: Physical Findings Physical Appearance: Overweight BMI 25-29 Skin Appearance Skin Appearance: Edema Edema Location Modifier: Edema Location: Type of Edema: Degree of Edema: Gastrointestinal Symptoms GI Symtoms: Constipation Tube Present: Bowel Sounds: Recent Bowel Pattern: Constipated Stool Characteristics: Nutritional Diagnosis Nutritional Risk Acuity 2: Blood Glucose > 300mg/dl Nutritional Risk Acuity 3: Fair Appetite Nutritional Risk Acuity 4: Good Appetite Past Medical History: CAD, HTN, T2DM, CKD-3, non-Hodkins lymphoma, CHF, chronic edema, chronic UTI, hypercholesteremia Nutritional Acuity: 2-Moderate Nutrition Diagnosis: Increased Nutrient Needs Nutrition Etiology: Physiological Causes Nutrition Problem/Etiology/Sym: AEB heeling of rib fractures. Energy Requirement: 1700 (M-SJ*1.3) Protein Requirement: 67 (1g/kg) Fluid Requirement: 1700 (1ml/kg) Diet Type: Diet as Tolerated FERNANDO/REG Nutrition Intervention: Encourage intake, Change diet, Check glucose Nutritional Needs Comment: Pt needs changed to Diabetic Diet. Drug: Diuretics Nutrition Monitoring & Eval Nutrition Goals: Eat 75-100% Meal, Drink > 1500 cc/day RD Patient Assessment Time: [address] Assessment Type: RD Assessment Patient Nutrition Acuity: 2-Moderate Follow Up Date: Jul 09, 2018 Nutritional Comment: 07/04 Pt admitted from med/surg to ECF. No current wt from ECF unit. Pt reporting dizziness, constipation, bowel movements every 2-4 days. Also charted that pt's stomach is distended. Pt meals charted from med/surg and she was eating 75-100% of meals. Pt's BG elevated and occassionaly above 300 putting her as a moderate nutrtion risk. Pt was on Diabetic diet on med/surg but is currently on FERNANDO, recommend going back to Diabetic Diet. DREW HARLEY Jul 04, 2018 12:27
[2018-07-04 15:32] VITALS: BP 148/82
--- NOTE | 2018-07-04 15:35 | OT ECF NOTE ---
Type of Note: Initial Note Primary Medical Diagnosis: Generalized weakness s/p fall with multiple rib fractures Occupational Therapy Evaluation Date: 07/04/18 SUBJECTIVE: Prior Hospitalization: H 06/30/18 thru 07/04/18 Prior Level of Function: Independent with ADLs. Assist from family for IADLs. Pt reports she completes community mobility only when going out for medical appointments. Family assists with IADLs. Encouraged pt to report number of falls on average in the last month and reports "I don't want to admit that to you." Prior Living Status: Apartment Community Services: No known needs Home Accessibility: Stairs with rails All needs on one level Tub/shower combination Equipment Owned: RW, Cane, Shower chair Medical Complications/Past Medical History: Chronic UTI, pulmonary nodule, CKD, Chronic AFib, Type 2 DM. See EMR for further details. Psychosocial Support: Assist from family for IADLs Pain Scale (0-10): Pt reports significant muscle spasms alleviated by use of rice pack. No numerical rating provided. OBJECTIVE: Strength: MMT: Right Left Shoulder Flexion N/T due to pain N/T due to pain Elbow Flexion WFL WFL Wrist Extension WFL WFL Spark Plug Assembler WFL WFL (5= normal, 4= good, 3= fair, 2= poor, 1= trace) ROM: Both upper extremities, WFL Sensation: Intact, No concerns Functional Transfer: Assistive Device: Front wheeled walker, Gait belt Transfer Ability: Minimum assistance, CGA. Pt very unsteady and sits rapidly. Recommend close w/c follow. ADL: Upper body dressing: Assistive device: None Upper body dressing ability: Set-up Lower body dressing: Assistive device: None Lower body dressing ability: Set-up Toileting: Assistive device: Toileting ability: N/T Grooming/hygiene: Assistive device: Grooming ability: N/T Bathing: Assistive device: Bathing ability: N/T Standardized Assessment: Amado Index of Activities of Daily Livin/20 upon initial evaluation (07/04/18). ASSESSMENT: Elena presents to [facility] with decreased independence for ADLs and CGA/MIn A for ambulation short distances. She will benefit from skilled OT services to optimize independence and safety with ADLs prior to discharge home. Problem List/Current Limitations: Pain Decreased activity tolerance Decreased balance Generalized weakness Poor safety awareness Lack of motivation Short Term Goals: 1) Pt will be Independent UB/LB dressing. 2) Pt will be Modified Independent toilet task. 3) Pt will be Independent grooming seated. 4) Pt will be Min A shower task to include bathtub transfer. 5) Pt Amado Index of ADLs score will improve by 2 points. 6) Pt will be educated on appropriate fall prevention strategies and AE needs. Usp Goals: Return to least restrictive environment Patient Goals: "Walk better," Return home Rehabilitation Prognosis: Fair Barriers to Discharge: High fall risk at PLOF, medical history PLAN: The patient will benefit from skilled occupational therapy services 5 times per week for 2 weeks including: Ther ex ADL training Safety training Ther act IADL training Home assessment Transfer training Adaptive equip training Bed mobility Energy conservation Thank you for this referral. If you have any questions, concerns, or comments about this report or plan, please contact me at . Oma Solano MS, OTR/L Occupational Therapist [facility]
[2018-07-04] MEDS: oxyCODONE HCL 5 MG CAP PO PRN (17:48)
--- NOTE | 2018-07-04 18:29 | PT ECF NOTE ---
Type of Note: Initial Note Primary Medical Diagnosis: Generalized weakness s/p fall with multiple R) sided rib fractures Physical Therapy Evaluation Date: 07/04/18 SUBJECTIVE: Prior Hospitalization: H 06/30/18 thru 07/04/18 Prior Level of Function: Independent with ADLs. Assist from family for IADLs. Pt reports she completes community mobility only when going out for medical appointments. Family assists with IADLs. Encouraged pt to report number of falls on average in the last month and reports "I don't want to admit that to you." Prior Living Status: Apartment Community Services: No known needs Home Accessibility: Pt reports 2 small steps; one onto porch and the threshold.; All needs on one level; Tub/shower combination Equipment Owned: RW, Cane, Shower chair Medical Complications/Past Medical History: Chronic UTI, pulmonary nodule, CKD, Chronic AFib, Type 2 DM. See EMR for further details. Psychosocial Support: Assist from family for IADLs Pain Scale (0-10): Pt reports significant muscle spasms on R) trunk; alleviated by use of rice pack. No numerical rating provided. OBJECTIVE: Strength: R) UE limited by pain; B) LE's 4/5 based on functional mobility. ROM: (please note any abnormalities) B) LE's WFL Sensation: (please note any abnormalities) no paresthesias reported Other Neuro findings: n/a Bed Mobility: Mod assist to scoot bottom to edge of bed, due to increased pain when using R) UE to assist at bed rail. Assistive device: Bed rail; Head of bed elevated Transfers: Minimum assistance; CGA Assistive Device: Front wheeled walker Gait: Verbal cues; CGA Assistive device: Front wheeled walker Stairs: Not yet addressed. Assistive device: Timed Up and Go (>12 seconds indicated increased risk for falls): 1 minute; 13 seconds with FWW 10 meter walk test (0.6m/second cannot function independently): n/a Other Objective Measures: n/a ASSESSMENT: Pt demos variable ability with transfers, but when given demonstration and verbal cues, is able to stand with CGA from edge of bed. Pain limits bed mobility at this time and pt is currently relying on head of bed to be fully raised to minimize pain, with Mod assist still required by PT to scoot towards edge of bed. Pt completed TUG test in 1 min 13 seconds and responded well to verbal cues for safety with sit to/from stand transfers. Pt would benefit from further therapy to return to prior level of function in a safe environment in order to return home indep as desired. Problem List/Current Limitations: Pain, Decreased balance, Decreased problem solving Short Term Goals: 1. Pt to be modified indep for bed mobility from a flat bed with least restrictive assistive device. 2. Pt to be modified indep for sit to/from stand from a variety of surfaces to simulate home furnishings. 3. Pt to ambulate with least restrictive device x 150' with vital signs in safe range and CGA/Min assist for path negotiation to simulate community mobility. 4. Pt to ambulate 50' with Modified indep on even surfaces with FWW. 5. Pt to lo up/down small platform step x [address] of pt's home with CGA/Min assist. [facility] Goals: Pt to return home with adequate level of assistance provided to improve safety. Patient Goals: Return home indep Rehabilitation Prognosis: Good Barriers for Discharge: Pt's awareness of limitations and family ability to be involved with care. PLAN: The patient will benefit from skilled physical therapy services 5 times per week for 2 weeks including: Therapeutic Exercise Therapeutic Activities, Transfer Training, Gait Training, Stair Training, ADL's, Safety Training, Pt/Caregiver Training, Bed Mobility Thank you for this referral. If you have any questions, concerns, or comments about this report or plan, please contact me at . H. Staci Krishna, PT, MPT, OMS MTDD
[2018-07-04] MEDS: CYCLOBENZAPRINE HCL 10 MG TAB PO PRN (18:32)
[2018-07-04] MEDS: CARVEDILOL 25 MG TABLET PO SCH (20:48)
[2018-07-04] MEDS: ATORVASTATIN 10 MG TAB PO SCH (20:48)
[2018-07-04] MEDS: GABAPENTIN 300 MG CAP PO SCH (20:48)
[2018-07-04] MEDS: guaiFENesin 600 MG TABCR PO SCH (20:48)
[2018-07-04] MEDS: PATCH REMOVAL 1 EA TP SCH (21:00)
[2018-07-04] MEDS: DOCUSATE SODIUM 100 MG CAP PO SCH (21:00)
[2018-07-05] MEDS: CYCLOBENZAPRINE HCL 10 MG TAB PO PRN (07:15)
[2018-07-05 08:30] VITALS: BP 155/78
[2018-07-05] MEDS: oxyCODONE HCL 5 MG CAP PO PRN ×2 (08:44→15:12)
[2018-07-05] MEDS: DIGOXIN 0.125 MG TAB PO SCH (08:44)
[2018-07-05] MEDS: MIRABEGRON 25 MG ER TAB PO SCH (08:44)
[2018-07-05] MEDS: DOCUSATE SODIUM 100 MG CAP PO SCH ×2 (08:44→20:19)
[2018-07-05] MEDS: RIVAROXABAN 10 MG TAB PO SCH (08:45)
[2018-07-05] MEDS: guaiFENesin 600 MG TABCR PO SCH ×2 (08:45→20:19)
[2018-07-05] MEDS: LIDOCAINE 5% PATCH TP SCH (08:45)
[2018-07-05] MEDS: GABAPENTIN 300 MG CAP PO SCH ×2 (08:45→20:19)
[2018-07-05] MEDS: CARVEDILOL 25 MG TABLET PO SCH ×2 (08:45→20:20)
[2018-07-05] MEDS: POLYETHYLENE GLYCOL 17 GM PKT PO SCH (08:45)
[2018-07-05] MEDS: INSULIN GLARGINE 100 U/ML 3 ML PEN SUBQ SCH (08:46)
[2018-07-05] MEDS: INSULIN HUM LISPRO 100 UN/ML 3 ML VIAL SUBQ PRN ×4 (08:46→20:19)
[2018-07-05] MEDS ORDERED: INSULIN GLARGINE 100 U/ML 3 ML PEN SUBQ SCH (09:00)
[2018-07-05] MEDS: HYDROCHLOROTHIAZIDE 25 MG TAB PO SCH (09:00)
[2018-07-05 10:20] VITALS: BP 144/70
[2018-07-05 14:53] VITALS: BP 146/66
[2018-07-05 14:54] VITALS: BP_SYST 107; BP_SYST 144; BP_DIAS 64; BP_DIAS 69
[2018-07-05] MEDS ORDERED: ATOR40TA24 PO (15:09)
[2018-07-05] MEDS: PATCH REMOVAL 1 EA TP SCH (20:15)
[2018-07-05] MEDS: ATORVASTATIN 10 MG TAB PO SCH (20:19)
[2018-07-06] MEDS: oxyCODONE HCL 5 MG CAP PO PRN ×3 (00:53→23:44)
[2018-07-06] MEDS: CYCLOBENZAPRINE HCL 10 MG TAB PO PRN ×3 (00:53→18:25)
[2018-07-06 08:25] VITALS: BP 151/81
[2018-07-06] MEDS: LIDOCAINE 5% PATCH TP SCH (08:51)
[2018-07-06] MEDS: INSULIN GLARGINE 100 U/ML 3 ML PEN SUBQ SCH (08:51)
[2018-07-06] MEDS: INSULIN HUM LISPRO 100 UN/ML 3 ML VIAL SUBQ PRN ×4 (08:51→21:01)
[2018-07-06] MEDS: DIGOXIN 0.125 MG TAB PO SCH (08:59)
[2018-07-06] MEDS: CARVEDILOL 25 MG TABLET PO SCH ×2 (08:59→21:01)
[2018-07-06] MEDS: POLYETHYLENE GLYCOL 17 GM PKT PO SCH (09:00)
[2018-07-06] MEDS: guaiFENesin 600 MG TABCR PO SCH ×2 (09:00→21:02)
[2018-07-06] MEDS: GABAPENTIN 300 MG CAP PO SCH ×2 (09:00→21:02)
[2018-07-06] MEDS: DOCUSATE SODIUM 100 MG CAP PO SCH ×2 (09:00→21:02)
[2018-07-06] MEDS: MIRABEGRON 25 MG ER TAB PO SCH (09:00)
[2018-07-06] MEDS: HYDROCHLOROTHIAZIDE 25 MG TAB PO SCH (09:00)
[2018-07-06] MEDS: RIVAROXABAN 10 MG TAB PO SCH (09:01)
[2018-07-06] MEDS ORDERED: FURO-45 PO (14:46)
[2018-07-06] MEDS ORDERED: ATOR20TA65 PO (15:12)
[2018-07-06 17:00] VITALS: BP 169/84
[2018-07-06 17:06] VITALS: BP 131/68
[2018-07-06 17:09] VITALS: BP 131/55
[2018-07-06] MEDS ORDERED: INSULIN GLARGINE 100 U/ML 3 ML PEN SUBQ ONE (21:00)
[2018-07-06] MEDS: PATCH REMOVAL 1 EA TP SCH (21:00)
[2018-07-06] MEDS: ATORVASTATIN 10 MG TAB PO SCH (21:02)
[2018-07-07] MEDS: CYCLOBENZAPRINE HCL 10 MG TAB PO PRN ×2 (06:20→14:44)
[2018-07-07 08:00] VITALS: BP 154/89
[2018-07-07] MEDS: INSULIN GLARGINE 100 U/ML 3 ML PEN SUBQ SCH ×2 (08:40→21:10)
[2018-07-07] MEDS: POLYETHYLENE GLYCOL 17 GM PKT PO SCH (08:40)
[2018-07-07] MEDS: INSULIN HUM LISPRO 100 UN/ML 3 ML VIAL SUBQ PRN ×4 (08:40→21:11)
[2018-07-07] MEDS: MIRABEGRON 25 MG ER TAB PO SCH (08:41)
[2018-07-07] MEDS: CARVEDILOL 25 MG TABLET PO SCH ×2 (08:41→21:11)
[2018-07-07] MEDS: HYDROCHLOROTHIAZIDE 25 MG TAB PO SCH (08:41)
[2018-07-07] MEDS: GABAPENTIN 300 MG CAP PO SCH ×2 (08:42→21:11)
[2018-07-07] MEDS: DOCUSATE SODIUM 100 MG CAP PO SCH ×2 (08:42→21:11)
[2018-07-07] MEDS: guaiFENesin 600 MG TABCR PO SCH ×2 (08:42→21:11)
[2018-07-07] MEDS: RIVAROXABAN 10 MG TAB PO SCH (08:43)
[2018-07-07] MEDS: DIGOXIN 0.125 MG TAB PO SCH (08:43)
[2018-07-07] MEDS: LIDOCAINE 5% PATCH TP SCH (08:44)
[2018-07-07] MEDS: oxyCODONE HCL 5 MG CAP PO PRN ×2 (12:59→21:11)
[2018-07-07 17:23] VITALS: BP 144/75
[2018-07-07 17:25] VITALS: BP 135/80
[2018-07-07 17:30] VITALS: BP 136/72
[2018-07-07] MEDS: PATCH REMOVAL 1 EA TP SCH (21:00)
[2018-07-07] MEDS: ATORVASTATIN 10 MG TAB PO SCH (21:11)
[2018-07-08] MEDS: CYCLOBENZAPRINE HCL 10 MG TAB PO PRN (06:11)
[2018-07-08 07:50] VITALS: BP 177/81
[2018-07-08] MEDS: DOCUSATE SODIUM 100 MG CAP PO SCH ×2 (08:42→20:40)
[2018-07-08] MEDS: MIRABEGRON 25 MG ER TAB PO SCH (08:42)
[2018-07-08] MEDS: oxyCODONE HCL 5 MG CAP PO PRN ×2 (08:42→20:57)
[2018-07-08] MEDS: HYDROCHLOROTHIAZIDE 25 MG TAB PO SCH (08:42)
[2018-07-08] MEDS: guaiFENesin 600 MG TABCR PO SCH ×2 (08:43→20:39)
[2018-07-08] MEDS: CARVEDILOL 25 MG TABLET PO SCH ×2 (08:43→20:39)
[2018-07-08] MEDS: DIGOXIN 0.125 MG TAB PO SCH (08:43)
[2018-07-08] MEDS: GABAPENTIN 300 MG CAP PO SCH ×2 (08:43→20:40)
[2018-07-08] MEDS: INSULIN HUM LISPRO 100 UN/ML 3 ML VIAL SUBQ PRN ×4 (08:44→20:39)
[2018-07-08] MEDS: INSULIN GLARGINE 100 U/ML 3 ML PEN SUBQ SCH ×2 (08:44→20:38)
[2018-07-08] MEDS: RIVAROXABAN 10 MG TAB PO SCH (08:44)
[2018-07-08] MEDS: POLYETHYLENE GLYCOL 17 GM PKT PO SCH (08:45)
[2018-07-08] MEDS: LIDOCAINE 5% PATCH TP SCH (09:00)
[2018-07-08] MEDS ORDERED: INSULIN GLARGINE 100 U/ML 3 ML PEN SUBQ SCH (16:30)
[2018-07-08] MEDS ORDERED: NS(*) 0.9% 500 ML BAG 500 ML IV PRN (16:40)
--- NOTE | 2018-07-08 16:42 | Miscellaneous Provider Note ---
Miscellaneous Provider Note Note Received call to review labs on patient. Urine shows UTI, will start patient on Rocephin IV. Nursing staff report patient likely to have fungal issue also in her vagina. She will be placed on Nystatin for fungal infection. She also has elevated blood sugars. She will have Insulin added to meals at 10 units in addition to sliding scale. MARIAJOSE RODARTE CABLE SYSTEMS INSTALLER Jul 08, 2018 16:42
[2018-07-08] MEDS: cefTRIAXone 1 GM VIAL IVP SCH (17:15)
[2018-07-08] MEDS: INSULIN HUM LISPRO 100 UN/ML 3 ML VIAL SUBQ SCH (17:43)
[2018-07-08] MEDS: ATORVASTATIN 10 MG TAB PO SCH (20:39)
[2018-07-08] MEDS: PATCH REMOVAL 1 EA TP SCH (20:40)
[2018-07-08] MEDS: NYSTATIN 100,000 U/GM PWD 15GM TP SCH (20:40)
[2018-07-09 06:24] LABS: PLATELET COUNT, AUTOMATED 338 K/uL (150-450)
[2018-07-09 07:30] VITALS: BP 157/76
[2018-07-09] MEDS: INSULIN HUM LISPRO 100 UN/ML 3 ML VIAL SUBQ SCH ×3 (08:08→16:54)
[2018-07-09] MEDS: NYSTATIN 100,000 U/GM PWD 15GM TP SCH ×2 (08:45→20:46)
[2018-07-09] MEDS: CARVEDILOL 25 MG TABLET PO SCH ×2 (08:45→20:50)
[2018-07-09] MEDS: DOCUSATE SODIUM 100 MG CAP PO SCH ×2 (08:45→20:50)
[2018-07-09] MEDS: HYDROCHLOROTHIAZIDE 25 MG TAB PO SCH (08:45)
[2018-07-09] MEDS: GABAPENTIN 300 MG CAP PO SCH ×2 (08:46→20:50)
[2018-07-09] MEDS: guaiFENesin 600 MG TABCR PO SCH ×2 (08:46→20:50)
[2018-07-09] MEDS: MIRABEGRON 25 MG ER TAB PO SCH (08:46)
[2018-07-09] MEDS: RIVAROXABAN 10 MG TAB PO SCH (08:46)
[2018-07-09] MEDS: INSULIN GLARGINE 100 U/ML 3 ML PEN SUBQ SCH ×2 (08:47→20:49)
[2018-07-09] MEDS: POLYETHYLENE GLYCOL 17 GM PKT PO SCH (08:47)
[2018-07-09] MEDS: DIGOXIN 0.125 MG TAB PO SCH (08:51)
[2018-07-09] MEDS: oxyCODONE HCL 5 MG CAP PO PRN ×2 (08:51→19:22)
--- NOTE | 2018-07-09 09:08 | Consultant Pharmacy Review ---
Insurance Claims Assistant Review Medication Review Do All Mecications have a Diag: Yes Disease-Drug Interactions History of Falls/Fractures: Opioids (on Oxycodone 5 mg po Q6HR PRN. Monitor for risk on fall) Pneumococcal Vaccine HX Pneumo Vac ([id number]): Yes (2014) HX Pneumo Vac (Pneumovax): Yes (2017) Comments Regarding the Review Patient taking Carvedilol 25 mg bid and Albuterol 2.5 mg Q6HR PRN. Beta-Blockers (Nonselective) may diminish the bronchodilatory effect of Beta2-Agonists. Mon itor closely for diminished bronchodilatory effects of the Albuterol. TY DAVISON V Jul 09, 2018 09:08
[2018-07-09 10:00] VITALS: BP 124/72
[2018-07-09] MEDS: LIDOCAINE 5% PATCH TP SCH (10:00)
[2018-07-09 10:02] VITALS: BP 106/57
[2018-07-09] MEDS: ACETAMINOPHEN 325 MG TAB PO PRN (11:38)
--- NOTE | 2018-07-09 12:06 | Medical Nutrition Therapy ---
Nutrition Anthropometrics Height (Inches): 67.00 Height (Calculated Centimeters: 170.118131 Weight (Pounds): 163 Weight (Calculated Kilograms): 73.936 BMI: 25.7 Arnoldo Nutrition Score: Adequate Arnoldo Nutrition Risk Score: 14 Dietary Referral Nutrition Risk Factors: Special Diet Nutrition Risk Comment: Physical Findings Physical Appearance: Overweight BMI 25-29 Skin Appearance Skin Appearance: Edema Edema Location Modifier: Edema Location: Type of Edema: Degree of Edema: Gastrointestinal Symptoms GI Symtoms: Constipation Tube Present: Bowel Sounds: Recent Bowel Pattern: Constipated Stool Characteristics: Nutritional Diagnosis Nutritional Risk Acuity 2: Blood Glucose > 300mg/dl Nutritional Risk Acuity 3: Fair Appetite Nutritional Risk Acuity 4: Good Appetite Past Medical History: CAD, HTN, T2DM, CKD-3, non-Hodkins lymphoma, CHF, chronic edema, chronic UTI, hypercholesteremia Nutritional Acuity: 2-Moderate Nutrition Diagnosis: Inappropriate Carb Intake Nutrition Etiology: Physiological Causes Nutrition Problem/Etiology/Sym: AEB elevated BG ranging from 180-370. Energy Requirement: 1700 (M-SJ*1.3) Protein Requirement: 67 (1g/kg) Fluid Requirement: 1700 (1ml/kg) Diet Type: Diabetic Nutrition Intervention: Cont diet as ordered, Encourage intake, Check glucose Drug: Diuretics Nutrition Monitoring & Eval Nutrition Goals: Eat 75-100% Meal, Drink > 1500 cc/day Nutrition Follow-Up: Good Intake, Refuses Snack Supplement RD Patient Assessment Time: [address] Assessment Type: RD Re-Assessment Patient Nutrition Acuity: 2-Moderate Follow Up Date: Jul 16, 2018 Nutritional Comment: 07/04 Pt admitted from med/surg to ECF. No current wt from ECF unit. Pt reporting dizziness, constipation, bowel movements every 2-4 days. Also charted that pt's stomach is distended. Pt meals charted from med/surg and she was eating 75-100% of meals. Pt's BG elevated and occassionaly above 300 putting her as a moderate nutrtion risk. Pt was on Diabetic diet on med/surg but is currently on FERNANDO, recommend going back to Diabetic Diet. TB 07/09 Pt changed to Diabetic diet, but still elevated blood glucose. Pt consuming 75-100% of meals, with occasional increased carb intake per patient request. Pt started on 10 units of insulin/meal and has had decreased BG ranging from 160-180s. Pt is refusing snack. Pt consuming 1-2 servings of dessert/day. TB DREW ROGERS Jul 08, 2018 14:35
[2018-07-09] MEDS: INSULIN HUM LISPRO 100 UN/ML 3 ML VIAL SUBQ PRN ×3 (12:20→20:49)
[2018-07-09 16:23] VITALS: BP 130/70
[2018-07-09] MEDS: cefTRIAXone 1 GM VIAL IVP SCH (16:54)
--- NOTE | 2018-07-09 17:37 | Antimicrobial Stewardship ---
Antimicrobial Time Out Antimicrobial Stewardship MD Service: Hospitalist Indications: UTI Antimicrobial Used CEFTRIAXONE 1G IV DAILY Start Date: Jul 08, 2018 Culture Results: Yes (INITIAL RESULTS SHOW LACTOBACILLUS) Eligible for PO Conversion Eligable for PO Conversion: Yes (PATIENT HAS BEEN AFREBRILE AND TAKING PO) Reviewed with Provider Reviewed w/ Provider on Rounds: No Comments Comments PATIENT WAS STARTED ON CEFTRIAXONE IV FOR UTI BASED ON LABS - AFEBRILE AND TAKING PO, CANDIDATE FOR CONVERSION TO PO ANTIBIOTICS DEPENDING ON CULTURE RESULTS FROM URINE NIMA SILVA Jul 09, 2018 17:37
[2018-07-09] MEDS: PATCH REMOVAL 1 EA TP SCH (20:46)
[2018-07-09] MEDS: ATORVASTATIN 10 MG TAB PO SCH (20:50)
[2018-07-10 07:50] VITALS: BP 127/62
--- NOTE | 2018-07-10 08:33 | ECF H&P BLANK ---
ECF H&P UPDATE History of Present Illness Requesting Physician Dr Abby Suarez Reason for Consult medical management of comorbidities. Chief Complaint Fall, rib Fx History of Present Illness 72F sustained ground level fall over edge of tub. Has anterior R rib 6,7 Fx. Posterior R 9-12 rib Fx. Denies any previous fever, chills, n/v. No presyncopal episodes and denies LOC with this fall. She also had fall in May which was a mechanical fall. She is under treatment from urology for chronic UTI and is curr ently taking Bactrim. She is anticoagulated on Xarelto for afib. History Problems: (1) CAD (coronary artery disease) Status: Chronic (2) CKD (chronic kidney disease) stage 3, GFR 30-59 ml/min Status: Chronic (3) Pulmonary nodule Status: Chronic Comment: Has had pulm nodule prior though in a different location by radiology review. Will need to see Damian NIEVES for outpt workup and follow up. (4) HTN (hypertension) Status: Chronic (5) CHRONIC ATRIAL FIBRILLATION Status: Chronic Home Meds Active Scripts Sulfamethoxazole/Trimet 800-160 Mg Tab (BACTRIM DS TABLET) 1 Each Tablet, 1 TAB PO Q12H PRN for UTI symptoms for 3 Days, #20 TAB 3 Refills Prov:MACHELLE ISBELL MD 06/18/18 Mirabegron (MYRBETRIQ) 50 Mg Tab.er.24h, 50 MG PO DAILY for overactive bladder for 30 Days, #30 CAP 3 Refills Prov:MACHELLE ISBELL MD 06/18/18 Carvedilol (CARVEDILOL) 25 Mg Tablet, 25 MG PO BID, #60 Prov:SARAVANAN PADILLA MD 04/01/18 Rivaroxaban (XARELTO 10 MG TAB (OR EQUIV)) 10 Mg Tablet, 15 MG PO QDAY@1700, #30 TAB Prov:YARELI THURMAN MD 09/02/17 Diltiazem Hcl (DILTIAZEM 24HR CD) 120 Mg Cap.er.24h, 240 MG PO QDAY, #60 Prov:UMM APONTE MD 04/15/17 Digoxin (Digox) 125 Mcg Tablet, 0.125 MG PO QDAY, #30 TAB 1 Refill Prov:RAMIN THURMAN MD 02/14/17 Reported Medications Phenazopyridine HCl (Azo Urinary Pain Relief) 97.5 Mg Tablet, 1 TAB PO PRN 06/06/18 Furosemide (FUROSEMIDE) 40 Mg Tablet, 1 TAB PO PRN, TAB 04/28/18 Atorvastatin Calcium (LIPITOR) 20 Mg Tablet, 1 TAB PO HS, TAB 04/01/18 Oxygen (OXYGEN) Inha, 3 L INH, L 06/18/17 Lysine (LYSINE) 500 Mg Tablet, 500 MG PO DAILY 04/27/16 Cranberry Extract (CRANBERRY) 200 Mg Capsule, 200 MG PO BID, CAPSULE 11/11/14 Glucosamine Sulfate 2KCL (GLUCOSAMINE) 1,000 Mg Tablet, 1000 MG PO BID 04/14/14 Multivitamin (MULTI VITAMIN DAILY) 1 Each Tablet, 1 EACH PO QDAY 04/14/14 Insulin Human Regular (Humulin R) 100 U/Ml Vial, 5 U SC TIDCF SS FOR BS 200-250 2 UNITS, 251-300 4 UNITS, 301-350 6 UNITS, 351-400 8 UNITS, OVER 400 10 UNITS 03/04/12 Nph, Human Insulin Isophane (HUMULIN N) 100 Unit/1 Ml Vial, 45 UNIT SQ BIDBS 03/04/12 Allergies: Coded Allergies: ketorolac (Verified Allergy, Severe, COULD NOT SEE, N&V, THOUGHT SHE WAS GOING TO , 06/30/18) ibuprofen (Verified Adverse Reaction, Unknown, DIZZINESS, NAUSEA, VOMITING, 06/30/18) Patient History: UTI (urinary tract infection) MOTHER (CKD), Hx Smoking: No Smoking Status: Never Smoker Exposure to Second Hand Smoke?: Yes (daugher smokes) Caffeine Intake: Soda Caffeine/Cups Per Day: occ 1 can Hx Alcohol Use: No Hx Substance Use Disorder: No Social Drug Use: Never Review of Systems All Systems Reviewed/Normal: Yes, Except as Noted Constitutional: No Fever Neurological: No Syncope, No Confusion Respiratory: Other (chest pain) Genitourinary: Dysuria Exam Vital Signs Vital Signs Date Time Temp Pulse Resp B/P (MAP) Pulse Ox O2 Delivery O2 Flow Rate FiO2 06/30/18 11:17 111 06/30/18 06:45 96 06/30/18 04:30 170/92 (118) 06/30/18 01:23 98.5 17 Room Air General Appearance: Alert, Awake (mild distress from pain) Neuro: No Gross deficits Eyes: PERRLA ENT: Normal Cardiovascular: Other (irregularly irregular) Respiratory: No Respiratory Distress GI: Abd Soft and Non-Tender Lymph: Cervical Nodes Benign Musculoskeletal: No Weakness/Pain Extremities: Soft and Non Tender, Warm, Pulses, Perfused, Edema (moderate to knee) Integumentary: Skin Intact without Lesion / Mass Psych: Alert & Oriented X3 Medical Decision Making Data Points Result Diagram: 06/30/1814606/30/18146 EKG / Imaging Imaging CT - IMPRESSION: 1. Multiple right rib fractures as described. No pneumothorax. 2. Small volume of pleural fluid on the left and trace pleural fluid on the right. Small hiatal hernia. 3. 8 x 6 mm subpleural nodule in the right upper lobe. Although the images are not available at the time of dictation, there is reportedly a nodule in this location prior exams. Recommend comparison with this imaging when available. 4. Multiple additional findings as described. Assessment and Plan Problems: (1) Ribs, multiple fractures Status: Acute Assessment & Plan: Multiple R sided rib Fx. Management and pain control per surgery. (2) CHRONIC ATRIAL FIBRILLATION Status: Chronic Assessment & Plan: Rate controlled. Continue diltiazem, digoxin, Coreg. Hold Xarelto for 24 hours to evaluate fro bleeding before resuming. (3) CKD (chronic kidney disease) stage 3, GFR 30-59 ml/min Status: Chronic Assessment & Plan: Stable, Cr baseline 1.4-1.5. Monitor and adjust dosing of renally cleared Rx based on function. (4) HTN (hypertension) Status: Chronic Assessment & Plan: Elevated on admission. Home Coreg, diltiazem restarted. May have component of pain elevating. Will add PRN Rx if needed. (5) CAD (coronary artery disease) Status: Chronic Assessment & Plan: Hx CABG. On Coreg, statin. Will continue. (6) Pulmonary nodule Status: Chronic Assessment & Plan: Chronic, appears to be stable in size. Follow up outpatient. (7) UTI (lower urinary tract infection) Status: Acute Assessment & Plan: Currently taking Bactrim for UTI prescribed by urology. Will continue Bactrim/ Venous Thromboembolism Antithrombotics Is Pt On Any Antithrombotics?: Yes Exam Sepsis Risk: No Definite Risk JEREMIAS SINGLETON DO Jun 30, 2018 12:09 <Electronically signed by JEREMIAS BARRY DO> D/ 08 08 08 PRATEEK/MEHDI The above acute care issues are resolving and/or stable. [facility] requires [facility] and/or skilled rehabilitation and is ready for admission to [facility]. YARELI THURMAN MD Jul 10, 2018 08:33
[2018-07-10 08:39] VITALS: BP 142/68
[2018-07-10] MEDS: NYSTATIN 100,000 U/GM PWD 15GM TP SCH ×2 (08:47→20:55)
[2018-07-10] MEDS: LIDOCAINE 5% PATCH TP SCH (08:47)
[2018-07-10] MEDS: POLYETHYLENE GLYCOL 17 GM PKT PO SCH (08:48)
[2018-07-10] MEDS: GABAPENTIN 300 MG CAP PO SCH ×2 (08:48→20:55)
[2018-07-10] MEDS: INSULIN GLARGINE 100 U/ML 3 ML PEN SUBQ SCH ×2 (08:48→20:54)
[2018-07-10] MEDS: MIRABEGRON 25 MG ER TAB PO SCH (08:49)
[2018-07-10] MEDS: HYDROCHLOROTHIAZIDE 25 MG TAB PO SCH (08:49)
[2018-07-10] MEDS: CARVEDILOL 25 MG TABLET PO SCH ×2 (08:49→20:55)
[2018-07-10] MEDS: guaiFENesin 600 MG TABCR PO SCH ×2 (08:49→20:55)
[2018-07-10] MEDS: DOCUSATE SODIUM 100 MG CAP PO SCH ×2 (08:49→20:55)
[2018-07-10] MEDS: oxyCODONE HCL 5 MG CAP PO PRN (08:50)
[2018-07-10] MEDS: RIVAROXABAN 10 MG TAB PO SCH (08:50)
[2018-07-10] MEDS: INSULIN HUM LISPRO 100 UN/ML 3 ML VIAL SUBQ SCH ×3 (08:50→16:46)
[2018-07-10] MEDS: DIGOXIN 0.125 MG TAB PO SCH (08:50)
[2018-07-10] MEDS: INSULIN HUM LISPRO 100 UN/ML 3 ML VIAL SUBQ PRN ×4 (08:51→20:55)
--- NOTE | 2018-07-10 08:54 | Hospitalist Progress Note ---
Physical Exam Vital Signs Date Time Temp Pulse Resp B/P (MAP) Pulse Ox O2 Delivery O2 Flow Rate FiO2 07/10/18 06:00 93 Nasal Cannula 2.5 07/09/18 16:23 98.2 80 18 130/70 (90) Intake and Output 07/10/18 07:00 Intake Total 990 ml Balance 990 ml Intake Oral 990 ml # Voids 6 # Bowel Movements 0 Result Diagram: 07/09/1860807/09/18608 Assessment and Plan Problems: (1) Ribs, multiple fractures Status: Acute Assessment & Plan: She is being managed by general surgery. Flexeril was added for muscle spasm. The patient was transferred to [facility] for rehabilitation. She is working with PT and OT. (2) CHRONIC ATRIAL FIBRILLATION Status: Chronic Assessment & Plan: The patient is chronically in atrial fibrillation treated with diltiazem, carvedilol, digoxin and Xarelto. Her digoxin level was therapeutic on 07/01. The Xarelto was held initially due to her fractures, but was restarted on 07/02 at renal dosing. The patient was having significant bradycardia, so her diltiazem was stopped. Her heart rates have improved. Will continue digoxin and carvedilol. (3) HTN (hypertension) Status: Chronic Assessment & Plan: The patient was on diltiazem and carvedilol. She also takes Lasix at home. Her diltiazem was discontinued due to bradycardia and her BPs were elevated. HCTZ was added. Her BPs have improved. Will continue to monitor. Monitor BMP periodically. (4) CKD (chronic kidney disease) stage 3, GFR 30-59 ml/min Status: Chronic Assessment & Plan: Chronic. She appears to be at her baseline creatinine. M onitor BMP periodically. (5) CAD (coronary artery disease) Status: Chronic (6) Type II diabetes mellitus Status: Chronic Assessment & Plan: Chronically on NPH bid with SSI. Her blood sugars have been high here. She is now on Lantus 30u bid with 10u short acting insulin with meals PLUS SSI. Will continue to monitor and adjust as needed. (7) UTI (lower urinary tract infection) Status: Chronic Assessment & Plan: The patient has history of chronic UTI. She had been on daily Bactrim but this was stopped. She became more confused and a UA showed significant pyuria. Rocephin was started. Cx is currently only growing lactobacillus. The patient's MS has improved. Will continue Rocephin for now. She is currently seeing Dr. Powell and says he plans to do a cystoscopy at the end of the month for further evaluation. Time Spent on Plan of Care: < 30 min YARELI THURMAN MD Jul 10, 2018 08:54
[2018-07-10] MEDS: cefTRIAXone 1 GM VIAL IVP SCH (16:46)
[2018-07-10 17:35] VITALS: BP 158/72
[2018-07-10] MEDS: ACETAMINOPHEN 325 MG TAB PO PRN (20:54)
[2018-07-10] MEDS: PATCH REMOVAL 1 EA TP SCH (20:55)
[2018-07-10] MEDS: ATORVASTATIN 10 MG TAB PO SCH (20:55)
[2018-07-11] MEDS: ACETAMINOPHEN 325 MG TAB PO PRN ×3 (06:36→20:41)
[2018-07-11 08:00] VITALS: BP 160/86
[2018-07-11] MEDS: DOCUSATE SODIUM 100 MG CAP PO SCH ×2 (08:47→20:41)
[2018-07-11] MEDS: HYDROCHLOROTHIAZIDE 25 MG TAB PO SCH (08:47)
[2018-07-11] MEDS: DIGOXIN 0.125 MG TAB PO SCH (08:47)
[2018-07-11] MEDS: GABAPENTIN 300 MG CAP PO SCH ×2 (08:47→20:41)
[2018-07-11] MEDS: guaiFENesin 600 MG TABCR PO SCH ×2 (08:47→20:41)
[2018-07-11] MEDS: CARVEDILOL 25 MG TABLET PO SCH ×2 (08:47→20:41)
[2018-07-11] MEDS: MIRABEGRON 25 MG ER TAB PO SCH (08:47)
[2018-07-11] MEDS: POLYETHYLENE GLYCOL 17 GM PKT PO SCH (08:47)
[2018-07-11] MEDS: LIDOCAINE 5% PATCH TP SCH (08:47)
[2018-07-11] MEDS: RIVAROXABAN 10 MG TAB PO SCH (08:48)
[2018-07-11] MEDS: INSULIN GLARGINE 100 U/ML 3 ML PEN SUBQ SCH ×2 (08:48→20:42)
[2018-07-11] MEDS: INSULIN HUM LISPRO 100 UN/ML 3 ML VIAL SUBQ PRN ×4 (08:49→20:42)
[2018-07-11] MEDS: INSULIN HUM LISPRO 100 UN/ML 3 ML VIAL SUBQ SCH ×3 (08:49→16:50)
[2018-07-11] MEDS: NYSTATIN 100,000 U/GM PWD 15GM TP SCH ×2 (09:00→20:42)
[2018-07-11 15:57] VITALS: BP 152/84
[2018-07-11] MEDS: cefTRIAXone 1 GM VIAL IVP SCH (16:53)
[2018-07-11] MEDS: ATORVASTATIN 10 MG TAB PO SCH (20:41)
[2018-07-11] MEDS: PATCH REMOVAL 1 EA TP SCH (20:42)
[2018-07-12 08:00] VITALS: BP 153/78
[2018-07-12] MEDS: LIDOCAINE 5% PATCH TP SCH (08:34)
[2018-07-12] MEDS: POLYETHYLENE GLYCOL 17 GM PKT PO SCH (08:35)
[2018-07-12] MEDS: guaiFENesin 600 MG TABCR PO SCH ×2 (08:36→21:36)
[2018-07-12] MEDS: HYDROCHLOROTHIAZIDE 25 MG TAB PO SCH (08:36)
[2018-07-12] MEDS: DOCUSATE SODIUM 100 MG CAP PO SCH ×2 (08:36→21:00)
[2018-07-12] MEDS: DIGOXIN 0.125 MG TAB PO SCH (08:36)
[2018-07-12] MEDS: RIVAROXABAN 10 MG TAB PO SCH (08:36)
[2018-07-12] MEDS: GABAPENTIN 300 MG CAP PO SCH ×2 (08:36→21:36)
[2018-07-12] MEDS: CARVEDILOL 25 MG TABLET PO SCH ×2 (08:36→21:36)
[2018-07-12] MEDS: MIRABEGRON 25 MG ER TAB PO SCH (08:36)
[2018-07-12] MEDS: INSULIN GLARGINE 100 U/ML 3 ML PEN SUBQ SCH ×2 (08:37→21:36)
[2018-07-12] MEDS: ACETAMINOPHEN 325 MG TAB PO PRN ×3 (08:37→21:37)
[2018-07-12] MEDS: INSULIN HUM LISPRO 100 UN/ML 3 ML VIAL SUBQ SCH ×3 (08:37→17:37)
[2018-07-12] MEDS: INSULIN HUM LISPRO 100 UN/ML 3 ML VIAL SUBQ PRN ×5 (08:38→21:37)
[2018-07-12] MEDS: NYSTATIN 100,000 U/GM PWD 15GM TP SCH ×2 (08:39→21:37)
[2018-07-12 15:53] VITALS: BP 164/77
[2018-07-12] MEDS: cefTRIAXone 1 GM VIAL IVP SCH (17:41)
[2018-07-12] MEDS: PATCH REMOVAL 1 EA TP SCH (21:00)
[2018-07-12] MEDS: ATORVASTATIN 10 MG TAB PO SCH (21:36)
[2018-07-13] MEDS: ACETAMINOPHEN 325 MG TAB PO PRN ×2 (06:08→14:33)
[2018-07-13 06:29] LABS: PLATELET COUNT, AUTOMATED 317 K/uL (150-450)
[2018-07-13 08:00] VITALS: BP 166/73
[2018-07-13] MEDS: INSULIN GLARGINE 100 U/ML 3 ML PEN SUBQ SCH ×2 (08:50→20:55)
[2018-07-13] MEDS: guaiFENesin 600 MG TABCR PO SCH ×2 (08:50→20:56)
[2018-07-13] MEDS: RIVAROXABAN 10 MG TAB PO SCH (08:50)
[2018-07-13] MEDS: DIGOXIN 0.125 MG TAB PO SCH (08:50)
[2018-07-13] MEDS: HYDROCHLOROTHIAZIDE 25 MG TAB PO SCH (08:51)
[2018-07-13] MEDS: POLYETHYLENE GLYCOL 17 GM PKT PO SCH (08:51)
[2018-07-13] MEDS: LIDOCAINE 5% PATCH TP SCH (08:51)
[2018-07-13] MEDS: CARVEDILOL 25 MG TABLET PO SCH ×2 (08:51→20:56)
[2018-07-13] MEDS: MIRABEGRON 25 MG ER TAB PO SCH (08:51)
[2018-07-13] MEDS: GABAPENTIN 300 MG CAP PO SCH ×2 (08:51→20:57)
[2018-07-13] MEDS: DOCUSATE SODIUM 100 MG CAP PO SCH ×2 (08:51→20:57)
[2018-07-13] MEDS: INSULIN HUM LISPRO 100 UN/ML 3 ML VIAL SUBQ SCH ×3 (08:52→17:29)
[2018-07-13] MEDS: traMADol 50 MG TAB PO PRN ×2 (08:58→18:16)
[2018-07-13] MEDS: NYSTATIN 100,000 U/GM PWD 15GM TP SCH ×2 (09:00→20:57)
[2018-07-13 16:00] VITALS: BP 150/80
[2018-07-13] MEDS: cefTRIAXone 1 GM VIAL IVP SCH (17:07)
[2018-07-13] MEDS: INSULIN HUM LISPRO 100 UN/ML 3 ML VIAL SUBQ PRN ×2 (17:30→20:56)
[2018-07-13] MEDS: PATCH REMOVAL 1 EA TP SCH (20:47)
[2018-07-13] MEDS: ATORVASTATIN 10 MG TAB PO SCH (20:57)
[2018-07-14] MEDS: traMADol 50 MG TAB PO PRN ×2 (02:39→20:54)
[2018-07-14 08:30] VITALS: BP 152/67
[2018-07-14] MEDS: POLYETHYLENE GLYCOL 17 GM PKT PO SCH (09:08)
[2018-07-14] MEDS: CARVEDILOL 25 MG TABLET PO SCH ×2 (09:08→20:53)
[2018-07-14] MEDS: ACETAMINOPHEN 325 MG TAB PO PRN ×2 (09:09→18:39)
[2018-07-14] MEDS: GABAPENTIN 300 MG CAP PO SCH ×2 (09:09→20:54)
[2018-07-14] MEDS: guaiFENesin 600 MG TABCR PO SCH ×2 (09:09→20:53)
[2018-07-14] MEDS: DOCUSATE SODIUM 100 MG CAP PO SCH ×2 (09:09→20:54)
[2018-07-14] MEDS: MIRABEGRON 25 MG ER TAB PO SCH (09:09)
[2018-07-14] MEDS: INSULIN GLARGINE 100 U/ML 3 ML PEN SUBQ SCH ×2 (09:10→20:53)
[2018-07-14] MEDS: HYDROCHLOROTHIAZIDE 25 MG TAB PO SCH (09:10)
[2018-07-14] MEDS: RIVAROXABAN 10 MG TAB PO SCH (09:10)
[2018-07-14] MEDS: DIGOXIN 0.125 MG TAB PO SCH (09:10)
[2018-07-14] MEDS: INSULIN HUM LISPRO 100 UN/ML 3 ML VIAL SUBQ PRN ×3 (09:11→17:04)
[2018-07-14] MEDS: INSULIN HUM LISPRO 100 UN/ML 3 ML VIAL SUBQ SCH ×3 (09:11→17:03)
[2018-07-14] MEDS: LIDOCAINE 5% PATCH TP SCH (09:17)
[2018-07-14] MEDS: NYSTATIN 100,000 U/GM PWD 15GM TP SCH ×2 (09:17→20:54)
[2018-07-14 15:25] VITALS: BP 142/65
[2018-07-14] MEDS: cefTRIAXone 1 GM VIAL IVP SCH (17:02)
[2018-07-14] MEDS: PATCH REMOVAL 1 EA TP SCH (20:49)
[2018-07-14] MEDS: ATORVASTATIN 10 MG TAB PO SCH (20:53)
[2018-07-15] MEDS: ACETAMINOPHEN 325 MG TAB PO PRN ×3 (03:42→20:38)
[2018-07-15] MEDS: NYSTATIN 100,000 U/GM PWD 15GM TP SCH ×2 (08:10→20:37)
[2018-07-15] MEDS: CARVEDILOL 25 MG TABLET PO SCH ×2 (08:11→20:38)
[2018-07-15] MEDS: LIDOCAINE 5% PATCH TP SCH (08:11)
[2018-07-15] MEDS: DIGOXIN 0.125 MG TAB PO SCH (08:12)
[2018-07-15] MEDS: HYDROCHLOROTHIAZIDE 25 MG TAB PO SCH (08:12)
[2018-07-15] MEDS: MIRABEGRON 25 MG ER TAB PO SCH (08:12)
[2018-07-15] MEDS: GABAPENTIN 300 MG CAP PO SCH ×2 (08:12→20:38)
[2018-07-15] MEDS: guaiFENesin 600 MG TABCR PO SCH ×2 (08:13→20:38)
[2018-07-15] MEDS: RIVAROXABAN 10 MG TAB PO SCH (08:13)
[2018-07-15] MEDS: DOCUSATE SODIUM 100 MG CAP PO SCH ×2 (08:15→20:29)
[2018-07-15] MEDS: POLYETHYLENE GLYCOL 17 GM PKT PO SCH (08:15)
[2018-07-15] MEDS: INSULIN GLARGINE 100 U/ML 3 ML PEN SUBQ SCH ×2 (08:17→20:40)
[2018-07-15] MEDS: INSULIN HUM LISPRO 100 UN/ML 3 ML VIAL SUBQ SCH ×3 (08:18→17:33)
[2018-07-15] MEDS: INSULIN HUM LISPRO 100 UN/ML 3 ML VIAL SUBQ PRN ×4 (08:19→20:39)
[2018-07-15] MEDS: traMADol 50 MG TAB PO PRN ×2 (08:23→15:31)
[2018-07-15 08:45] VITALS: BP 143/61
--- NOTE | 2018-07-15 12:27 | Medical Nutrition Therapy ---
Nutrition Anthropometrics Height (Inches): 67.00 Height (Calculated Centimeters: 170.369808 Weight (Pounds): 157 Weight (Calculated Kilograms): 71.554 BMI: 25.7 Arnoldo Nutrition Score: Adequate Arnoldo Nutrition Risk Score: 15 Dietary Referral Nutrition Risk Factors: Special Diet Nutrition Risk Comment: Physical Findings Physical Appearance: Overweight BMI 25-29 Skin Appearance Skin Appearance: Edema Edema Location Modifier: Edema Location: Type of Edema: Degree of Edema: Gastrointestinal Symptoms GI Symtoms: Constipation Tube Present: Bowel Sounds: Recent Bowel Pattern: Constipated Stool Characteristics: Nutritional Diagnosis Nutritional Risk Acuity 3: Fair Appetite Nutritional Risk Acuity 4: Good Appetite Past Medical History: CAD, HTN, T2DM, CKD-3, non-Hodkins lymphoma, CHF, chronic edema, chronic UTI, hypercholesteremia Nutritional Acuity: 3-Mild Nutrition Diagnosis: Inappropriate Carb Intake Nutrition Etiology: Physiological Causes Nutrition Problem/Etiology/Sym: AEB elevated BG ranging from 180-370. Energy Requirement: 1700 (M-SJ*1.3) Protein Requirement: 67 (1g/kg) Fluid Requirement: 1700 (1ml/kg) Diet Type: Diabetic Nutrition Intervention: Cont diet as ordered, Encourage intake, Check glucose Drug: Diuretics Nutrition Monitoring & Eval Nutrition Goals: Eat 75-100% Meal, Drink > 1500 cc/day Nutrition Follow-Up: Good Intake RD Patient Assessment Time: [address] Assessment Type: RD Re-Assessment Patient Nutrition Acuity: 3-Mild Follow Up Date: Jul 23, 2018 Nutritional Comment: 07/04 Pt admitted from med/surg to ECF. No current wt from ECF unit. Pt reporting dizziness, constipation, bowel movements every 2-4 days. Also charted that pt's stomach is distended. Pt meals charted from med/surg and she was eating 75-100% of meals. Pt's BG elevated and occassionaly above 300 putting her as a moderate nutrition risk. Pt was on Diabetic diet on med/surg but is currently on FERNANDO, recommend going back to Diabetic Diet. TB 07/09 Pt changed to Diabetic diet, but still elevated blood glucose. Pt consuming 75-100% of meals, with occasional increased carb intake per patient request. Pt started on 10 units of insulin/meal and has had decreased BG ranging from 160-180s. Pt is refusing snack. Pt consuming 1-2 servings of dessert/day. TB 07/15 Pt consuming 75-100% of meals. Pt is only ordering a protein source 50% of the time. Will keep encouraging pt to increase protein. Pt is reporting loose stools. From 07/13, Pt's BG seems to be more under control with ranging between 130-234, moving her to mild nutrition risk. Elevated levels of BUN at 27 and Creatinine at 1.3. K+ WNL at 3.9. No labs of protein status. TB DREW ROGERS Jul 15, 2018 09:19
[2018-07-15] MEDS ORDERED: NS(*) 0.9% 500 ML BAG 0 ML ONE (14:41)
[2018-07-15 16:15] VITALS: BP 185/81
[2018-07-15] MEDS: PATCH REMOVAL 1 EA TP SCH (20:29)
[2018-07-15] MEDS: ATORVASTATIN 10 MG TAB PO SCH (20:37)
[2018-07-16] MEDS: traMADol 50 MG TAB PO PRN (05:29)
[2018-07-16 08:05] VITALS: BP 156/86
[2018-07-16] MEDS: INSULIN GLARGINE 100 U/ML 3 ML PEN SUBQ SCH ×2 (08:31→21:05)
[2018-07-16] MEDS: INSULIN HUM LISPRO 100 UN/ML 3 ML VIAL SUBQ SCH ×3 (08:31→16:30)
[2018-07-16] MEDS: INSULIN HUM LISPRO 100 UN/ML 3 ML VIAL SUBQ PRN ×3 (08:32→21:06)
[2018-07-16] MEDS: RIVAROXABAN 10 MG TAB PO SCH (08:33)
[2018-07-16] MEDS: ACETAMINOPHEN 325 MG TAB PO PRN ×3 (08:33→21:07)
[2018-07-16] MEDS: HYDROCHLOROTHIAZIDE 25 MG TAB PO SCH (08:34)
[2018-07-16] MEDS: POLYETHYLENE GLYCOL 17 GM PKT PO SCH (08:34)
[2018-07-16] MEDS: DIGOXIN 0.125 MG TAB PO SCH (08:34)
[2018-07-16] MEDS: CARVEDILOL 25 MG TABLET PO SCH ×2 (08:34→21:04)
[2018-07-16] MEDS: guaiFENesin 600 MG TABCR PO SCH ×2 (08:34→21:04)
[2018-07-16] MEDS: MIRABEGRON 25 MG ER TAB PO SCH (08:34)
[2018-07-16] MEDS: GABAPENTIN 300 MG CAP PO SCH ×2 (08:34→21:04)
[2018-07-16] MEDS: LIDOCAINE 5% PATCH TP SCH (08:35)
[2018-07-16] MEDS: DOCUSATE SODIUM 100 MG CAP PO SCH ×2 (08:35→20:22)
[2018-07-16] MEDS: NYSTATIN 100,000 U/GM PWD 15GM TP SCH ×2 (09:00→21:04)
[2018-07-16 15:35] VITALS: BP 154/78
[2018-07-16] MEDS: PATCH REMOVAL 1 EA TP SCH (21:00)
[2018-07-16] MEDS: ATORVASTATIN 10 MG TAB PO SCH (21:04)
[2018-07-17] MEDS: ACETAMINOPHEN 325 MG TAB PO PRN ×3 (04:42→21:32)
[2018-07-17 08:30] VITALS: BP 156/59
[2018-07-17] MEDS: HYDROCHLOROTHIAZIDE 25 MG TAB PO SCH (08:55)
[2018-07-17] MEDS: INSULIN GLARGINE 100 U/ML 3 ML PEN SUBQ SCH ×2 (08:55→20:28)
[2018-07-17] MEDS: traMADol 50 MG TAB PO PRN ×2 (08:55→16:44)
[2018-07-17] MEDS: MIRABEGRON 25 MG ER TAB PO SCH (08:55)
[2018-07-17] MEDS: CARVEDILOL 25 MG TABLET PO SCH ×2 (08:55→20:30)
[2018-07-17] MEDS: GABAPENTIN 300 MG CAP PO SCH ×2 (08:56→20:28)
[2018-07-17] MEDS: RIVAROXABAN 10 MG TAB PO SCH (08:56)
[2018-07-17] MEDS: DIGOXIN 0.125 MG TAB PO SCH (08:56)
[2018-07-17] MEDS: guaiFENesin 600 MG TABCR PO SCH ×2 (08:56→20:28)
[2018-07-17] MEDS: LIDOCAINE 5% PATCH TP SCH ×2 (08:56→09:00)
[2018-07-17] MEDS: INSULIN HUM LISPRO 100 UN/ML 3 ML VIAL SUBQ SCH ×3 (08:57→16:30)
[2018-07-17] MEDS: POLYETHYLENE GLYCOL 17 GM PKT PO SCH (09:00)
[2018-07-17] MEDS: DOCUSATE SODIUM 100 MG CAP PO SCH ×2 (09:00→20:27)
[2018-07-17] MEDS: NYSTATIN 100,000 U/GM PWD 15GM TP SCH ×2 (09:00→20:27)
--- NOTE | 2018-07-17 09:30 | Urology Progress Note ---
Subjective Progress Notes Subjective Patient examined while sitting in chair at bedside, pleasant and conversant Patient Complains of: Gastrointestinal: No Nausea, No Vomiting, No Flatus, No Bowel Movement, No Other Genitourinary: No Dysuria, No Hematuria, No Urinary Incontinence, No Other Physical Exam Vital Signs Date Time Temp Pulse Resp B/P (MAP) Pulse Ox O2 Delivery O2 Flow Rate FiO2 07/17/18 08:56 76 07/17/18 08:30 98.4 16 156/59 (91) 95 Nasal Cannula 2.0 Intake and Output 07/17/18 06:58 Intake Total 570 ml Balance 570 ml Intake Oral 570 ml # Voids 11 # Bowel Movements 2 General Appearance: Alert, Awake, No Acute Distress GI: Soft and Non-Tender : Normal Extremities: Soft and Non Tender Result Diagram: 07/13/1862407/13/18624 Assessment and Plan Condition I discussed with the patient whether she thought the Myrbetriq prescribed as an outpatient helped with her urgency symptoms and she thinks it did. She does not clinically feel like she has an active urinary tract infection at this time and a urine culture demonstrated Lactobacillus which is commonly a contaminant rather than an active urinary tract pathogen. I reviewed the situation with her nurse and the nurse practitioner caring for her. Unfortunately, her risk factors for recurrent bacteriuria/urinary tract infection are numerous and possibly non-reversible. Her nurse reports that she has no sensation of bowel movement and has been found to several times with liquid stool in her introitus. Obviously perineal hygiene is going to be difficult in that case. Suppression with daily low-dose antibiotic I think would only lead to colonization with resistant organisms. One option might be daily Mandelamine plus vitamin C, but since asymptomatic bacteriuria in this patient demographic is extremely common, I'm tempted only treat what might be symptomatic urinary tract infections (fever/suprapubic pain/gross hematuria) and I don't think I would rely on voided urine specimens since I think she is unable to produce an uncontaminated urine specimen. I would recommend leaving her on the Myrbetriq since she does think it helped with her voiding pattern and is unlikely to cause SPICE FUMIGATOR side effects as some of the older anticholinergics could. Time Spent: < 30 min MACHELLE ISBELL MD Jul 17, 2018 09:30
[2018-07-17] MEDS: INSULIN HUM LISPRO 100 UN/ML 3 ML VIAL SUBQ PRN (12:26)
--- NOTE | 2018-07-17 15:31 | Hospitalist Progress Note ---
Subjective Progress Notes Subjective No new complaints. Still having significant pain due to her rib fractures. Physical Exam Vital Signs Date Time Temp Pulse Resp B/P (MAP) Pulse Ox O2 Delivery O2 Flow Rate FiO2 07/17/18 10:00 95 Nasal Cannula 2.0 07/17/18 08:56 76 07/17/18 08:30 98.4 16 156/59 (91) Intake and Output 07/17/18 06:58 Intake Total 570 ml Balance 570 ml Intake Oral 570 ml # Voids 11 # Bowel Movements 2 General Appearance: Alert, Awake, No Acute Distress, Afebrile Neuro: No Gross deficits Eyes: PERRLA Cardiovascular: Regular Rate and Rhythm Respiratory: Clear to Auscultation GI: Soft and Non-Tender Extremities: Warm, Perfused, Other (No edema.) Result Diagram: 07/13/1862407/13/18624 Assessment and Plan Problems: (1) Ribs, multiple fractures Status: Acute Assessment & Plan: She is being managed by general surgery. Flexeril was added for muscle spasm. The patient was transferred to [facility] for rehabilitation. She is working with PT and OT. She is progressing very slowly. (2) CHRONIC ATRIAL FIBRILLATION Status: Chronic Assessment & Plan: The patient is chronically in atrial fibrillation treated with diltiazem, carvedilol, digoxin and Xarelto. Her digoxin level was therapeutic on 07/01. The Xarelto was held initially due to her fractures, but was restarted on 07/02 at renal dosing. The patient was having significant bradycardia, so her diltiazem was stopped. Her heart rates have improved. Will continue digoxin and carvedilol. (3) HTN (hypertension) Status: Chronic Assessment & Plan: The patient was on diltiazem and carvedilol. She also takes Lasix at home. Her diltiazem was discontinued due to bradycardia and her BPs were elevated. HCTZ was added. Her BPs have improved. Will continue to monitor. Monitor BMP periodically. (4) CKD (chronic kidney disease) stage 3, GFR 30-59 ml/min Status: Chronic Assessment & Plan: Chronic. She appears to be at her baseline creatinine. Monitor BMP periodically. (5) CAD (coronary artery disease) Status: Chronic Assessment & Plan: Stable. (6) Type II diabetes mellitus Status: Chronic Assessment & Plan: Chronically on NPH bid with SSI. Her blood sugars have been high here. She is now on Lantus 40u bid with 10u short acting insulin with meals PLUS SSI. Will continue to monitor and adjust as needed. (7) UTI (lower urinary tract infection) Status: Chronic Assessment & Plan: The patient has history of chronic UTI. She had been on daily Bactrim but this was stopped. She became more confused and a UA showed significant pyuria. Rocephin was started. Cx is currently only growing lactobacillus. The patient's MS has improved. Will continue Rocephin for now. She is currently seeing Dr. Powell and says he plans to do a cystoscopy at the end of the month for further evaluation. Time Spent on Plan of Care: < 30 min YARELI THURMAN MD Jul 17, 2018 15:31
[2018-07-17 17:09] VITALS: BP 144/62
[2018-07-17] MEDS: PATCH REMOVAL 1 EA TP SCH (20:27)
[2018-07-17] MEDS: ATORVASTATIN 10 MG TAB PO SCH (20:30)
[2018-07-18 06:23] LABS: PLATELET COUNT, AUTOMATED 295 K/uL (150-450)
[2018-07-18] MEDS: ACETAMINOPHEN 325 MG TAB PO PRN ×2 (06:42→19:07)
[2018-07-18 08:00] VITALS: BP 132/64
[2018-07-18] MEDS: INSULIN HUM LISPRO 100 UN/ML 3 ML VIAL SUBQ SCH ×3 (08:03→17:03)
[2018-07-18] MEDS: INSULIN GLARGINE 100 U/ML 3 ML PEN SUBQ SCH ×2 (08:03→20:35)
[2018-07-18] MEDS: INSULIN HUM LISPRO 100 UN/ML 3 ML VIAL SUBQ PRN ×4 (08:04→20:35)
[2018-07-18] MEDS: DOCUSATE SODIUM 100 MG CAP PO SCH ×2 (08:48→21:00)
[2018-07-18] MEDS: RIVAROXABAN 10 MG TAB PO SCH (08:48)
[2018-07-18] MEDS: MIRABEGRON 25 MG ER TAB PO SCH (08:48)
[2018-07-18] MEDS: guaiFENesin 600 MG TABCR PO SCH ×2 (08:48→20:35)
[2018-07-18] MEDS: DIGOXIN 0.125 MG TAB PO SCH (08:49)
[2018-07-18] MEDS: CARVEDILOL 25 MG TABLET PO SCH ×2 (08:49→20:35)
[2018-07-18] MEDS: HYDROCHLOROTHIAZIDE 25 MG TAB PO SCH (08:49)
[2018-07-18] MEDS: GABAPENTIN 300 MG CAP PO SCH ×2 (08:49→20:35)
[2018-07-18] MEDS: POLYETHYLENE GLYCOL 17 GM PKT PO SCH (09:00)
[2018-07-18] MEDS: LIDOCAINE 5% PATCH TP SCH (09:00)
[2018-07-18] MEDS: NYSTATIN 100,000 U/GM PWD 15GM TP SCH ×2 (09:00→20:36)
[2018-07-18] MEDS ORDERED: HYDR-2966 PO (15:09)
[2018-07-18] MEDS ORDERED: TRAM-420 PO (15:09)
[2018-07-18] MEDS ORDERED: GABA-549 PO (15:09)
--- NOTE | 2018-07-18 15:31 | Hospitalist Depart ---
Discharge Summary Reason for Hosp/Final Diag: (1) Ribs, multiple fractures Status: Acute Hospital Course & Plan: She was being managed by general surgery. She has been using Tramadol for pain and Flexeril was added for muscle spasm. The patient was transferred to [facility] for rehabilitation. She has been working with PT and OT. She is progressing very slowly. She will transfer to [facility] for continued rehabilitation. (2) CHRONIC ATRIAL FIBRILLATION Status: Chronic Hospital Course & Plan: The patient is chronically in atrial fibrillation babs ated with diltiazem, carvedilol, digoxin and Xarelto. Her digoxin level was therapeutic on 07/01. The Xarelto was held initially due to her fractures, but was restarted on 07/02 at renal dosing. The patient was having significant bradycardia, so her diltiazem was stopped. Her heart rates have improved. Will continue digoxin and carvedilol. (3) HTN (hypertension) Status: Chronic Hospital Course & Plan: The patient was on diltiazem and carvedilol. Her diltiazem was discontinued due to bradycardia and her BPs were elevated. HCTZ w as added. Her BPs have improved. Recommend occasional blood draw to monitor creatinine. (4) CKD (chronic kidney disease) stage 3, GFR 30-59 ml/min Status: Chronic Hospital Course & Plan: Chronic. She appears to be at her baseline creatinine. Monitor BMP periodically. (5) CAD (coronary artery disease) Status: Chronic Hospital Course & Plan: Stable. (6) Type II diabetes mellitus Status: Chronic Hospital Course & Plan: Chronically on NPH bid with SSI. She will continue her usual home regimen. (7) UTI (lower urinary tract infection) Status: Chronic Hospital Course & Plan: The patient has history of chronic UTI. She had been on daily Bactrim but this was stopped. She became more confused and a UA showed significant pyuria. Rocephin was started and treated for five days. Cx is currently only growing lactobacillus. The patient's MS has improved. She is currently seeing Dr. Isbell and says he plans to do a cystoscopy at the end of the month for further evaluation. She should continue Bactrim as needed for symptoms of UTI. Departure Latest Vital Signs Vital Signs 07/18/18 07/18/18 08:00 08:49 Temp 98.0 Pulse 78 Resp 16 B/P (MAP) 132/64 (86) Pulse Ox 100 O2 Delivery Nasal Cannula O2 Flow Rate 2.0 Weight (Pounds): 157 Weight (Ounces): 12.0 Result Diagram: 07/18/1861507/18/18615 Condition: Improved Discharge: Residential PT/OT Follow Up For: PT For Strengthening, OT For ADL's, PT Evaluation and Treat, OT Evaluation and Treat Discharge Instructions Home Meds Active Scripts Gabapentin (GABAPENTIN) 300 Mg Capsule, 300 MG PO BID, #60 CAPSULE Prov:RODARTEMARIAJOSE Wes [facility] 07/18/18 Tramadol Hcl (TRAMADOL HCL) 50 Mg Tablet, 50 MG PO Q6H PRN for PAIN, #60 TAB Prov:MARIAJOSE RODARTE [facility] 07/18/18 Hydrochlorothiazide (HYDROCHLOROTHIAZIDE) 25 Mg Tablet, 25 MG PO QDAY, #30 TAB Prov:MARIAJOSE RODARTE [facility] 07/18/18 Sulfamethoxazole/Trimet 800-160 Mg Tab (BACTRIM DS TABLET) 1 Each Tablet, 1 TAB PO Q12H PRN for UTI symptoms for 3 Days, #20 TAB 3 Refills Prov:MACHELLE ISBELL MD 06/18/18 Mirabegron (MYRBETRIQ) 50 Mg Tab.er.24h, 50 MG PO DAILY for overactive bladder for 30 Days, #30 CAP 3 Refills Prov:MACHELLE ISBELL MD 06/18/18 Carvedilol (CARVEDILOL) 25 Mg Tablet, 25 MG PO BID, #60 Prov:SARAVANAN PADILLA MD 04/01/18 Rivaroxaban (XARELTO 10 MG TAB (OR EQUIV)) 10 Mg Tablet, 15 MG PO QDAY@1700, #30 TAB Prov:YARELI THURMAN MD 09/02/17 Digoxin (Digox) 125 Mcg Tablet, 0.125 MG PO QDAY, #30 TAB 1 Refill Prov:RAMIN THURMAN MD 02/14/17 Reported Medications Atorvastatin Calcium (ATORVASTATIN CALCIUM) 20 Mg Tablet, 1 TAB PO QDAY, TAB 07/06/18 Oxygen (OXYGEN) Inha, 3 L INH, L 06/18/17 Lysine (LYSINE) 500 Mg Tablet, 500 MG PO BID 04/27/16 Cranberry Extract (CRANBERRY) 200 Mg Capsule, 200 MG PO BID, CAPSULE 11/11/14 Glucosamine Sulfate 2KCL (GLUCOSAMINE) 1,000 Mg Tablet, 1000 MG PO BID for 30 Days 04/14/14 Multivitamin (MULTI VITAMIN DAILY) 1 Each Tablet, 1 EACH PO QDAY 04/14/14 Insulin Human Regular (Humulin R) 100 U/Ml Vial, 5 U SC TIDCF SS FOR BS 200-250 2 UNITS, 251-300 4 UNITS, 301-350 6 UNITS, 351-400 8 UNITS, OVER 400 10 UNITS 03/04/12 Nph, Human Insulin Isophane (HUMULIN N) 100 Unit/1 Ml Vial, 45 UNIT SQ BIDBS 03/04/12 Discontinued Reported Medications Furosemide (FUROSEMIDE) 20 Mg Tablet, 1 TAB PO QDAY, TAB 07/06/18 Discontinued Scripts Diltiazem Hcl (DILTIAZEM 24HR CD) 120 Mg Cap.er.24h, 240 MG PO QDAY, #60 Prov:UMM APONTE MD 04/15/17 Diet: Regular Activity: As Tolerated, With Walker Copies to: KARIN MELENDEZ DO; MACHELLE ISBELL MD ; Venous Thromboembolism Antithrombotics Is Pt On Any Antithrombotics?: Yes MARIAJOSE RODARTE [employer] Jul 18, 2018 15:31
[2018-07-18 19:19] VITALS: BP 184/76
[2018-07-18] MEDS: ATORVASTATIN 10 MG TAB PO SCH (20:35)
[2018-07-18] MEDS: PATCH REMOVAL 1 EA TP SCH (20:35)
[2018-07-19] MEDS: ACETAMINOPHEN 325 MG TAB PO PRN ×2 (03:03→11:15)
[2018-07-19 07:40] VITALS: BP 177/75
[2018-07-19] MEDS: NYSTATIN 100,000 U/GM PWD 15GM TP SCH (08:40)
[2018-07-19] MEDS: guaiFENesin 600 MG TABCR PO SCH (08:40)
[2018-07-19] MEDS: RIVAROXABAN 10 MG TAB PO SCH (08:41)
[2018-07-19] MEDS: CARVEDILOL 25 MG TABLET PO SCH (08:41)
[2018-07-19] MEDS: GABAPENTIN 300 MG CAP PO SCH (08:41)
[2018-07-19] MEDS: traMADol 50 MG TAB PO PRN (08:42)
[2018-07-19] MEDS: HYDROCHLOROTHIAZIDE 25 MG TAB PO SCH (08:42)
[2018-07-19] MEDS: INSULIN GLARGINE 100 U/ML 3 ML PEN SUBQ SCH (08:42)
[2018-07-19] MEDS: DIGOXIN 0.125 MG TAB PO SCH (08:42)
[2018-07-19] MEDS: INSULIN HUM LISPRO 100 UN/ML 3 ML VIAL SUBQ SCH ×2 (08:43→12:34)
[2018-07-19] MEDS: INSULIN HUM LISPRO 100 UN/ML 3 ML VIAL SUBQ PRN ×2 (08:44→12:35)
[2018-07-19] MEDS: MIRABEGRON 25 MG ER TAB PO SCH (08:51)
[2018-07-19] MEDS: LIDOCAINE 5% PATCH TP SCH (08:53)
[2018-07-19] MEDS: DOCUSATE SODIUM 100 MG CAP PO SCH (08:53)
[2018-07-19] MEDS: POLYETHYLENE GLYCOL 17 GM PKT PO SCH (08:53)
--- NOTE | 2018-07-19 09:56 | OT ECF NOTE ---
Type of Note: Discharge Primary Medical Diagnosis: Generalized weakness s/p fall with multiple rib fractures Occupational Therapy Evaluation Date: 07/04/18 SUBJECTIVE: Prior Hospitalization: H 06/30/18 thru 07/04/18 Prior Level of Function: Independent with ADLs. Assist from family for IADLs. Pt reports she completes community mobility only when going out for medical appointments. Family assists with IADLs. Encouraged pt to report number of falls on average in the last month and reports "I don't want to admit that to you." Prior Living Status: Apartment Community Services: No known needs Home Accessibility: Stairs with rails All needs on one level Tub/shower combination Equipment Owned: RW, Cane, Shower chair Medical Complications/Past Medical History: Chronic UTI, pulmonary nodule, CKD, Chronic AFib, Type 2 DM. See EMR for further details. Psychosocial Support: Assist from family for IADLs Pain Scale (0-10): Pt reports significant muscle spasms alleviated by use of rice pack. No numerical rating provided. OBJECTIVE: Strength: MMT: Right Left Shoulder Flexion N/T due to pain N/T due to pain Elbow Flexion WFL WFL Wrist Extension WFL WFL Cigarette Tester WFL WFL (5= normal, 4= good, 3= fair, 2= poor, 1= trace) ROM: Both upper extremities, WFL Sensation: Intact, No concerns Functional Transfer: Assistive Device: Front wheeled walker Transfer Ability: Minimum assistance, CGA. Pt very unsteady and sits rapidly. Recommend close w/c follow. ADL: Upper body dressing: Assistive device: None Upper body dressing ability: Set-up Lower body dressing: Assistive device: None Lower body dressing ability: Set-up/Min A Toileting: Assistive device: Raised toilet seat Toileting ability: Min-Mod A Grooming/hygiene: Assistive device: Seated Grooming ability: Set-up Bathing: Assistive device: Bathing ability: N/T Standardized Assessment: Amado Index of Activities of Daily Livin/20 upon initial evaluation (07/04/18). 06/08 at discharge (07/19/18). ASSESSMENT: Elena presented to [facility] with decreased independence for ADLs and CGA/MIn A for ambulation short distances. She will discharge to [facility] for continued skilled care and rehab. Problem List/Current Limitations: Pain Decreased activity tolerance Decreased balance Generalized weakness Poor safety awareness Lack of motivation Short Term Goals: 1) Pt will be Independent UB/LB dressing. Not Met. 2) Pt will be Modified Independent toilet task. Not Met. 3) Pt will be Independent grooming seated. Not Met. 4) Pt will be Min A shower task to include bathtub transfer. Not Met. 5) Pt Amado Index of ADLs score will improve by 2 points. Not Met. 6) Pt will be educated on appropriate fall prevention strategies and AE needs. Progressing towards. [employer] Goals: Return to least restrictive environment Patient Goals: "Walk better," Return home Rehabilitation Prognosis: Fair Barriers to Discharge: High fall risk at PLOF, medical history PLAN: The patient discharge to [facility] for continued skilled care and rehab. Thank you for this referral. If you have any questions, concerns, or comments about this report or plan, please contact me at . Oma Solano MS, OTR/L Occupational Therapist NIRMAL
--- NOTE | 2018-07-19 14:30 | PT ECF NOTE ---
Type of Note: Discharge Summary Primary Medical Diagnosis: Generalized weakness s/p fall with multiple R) sided rib fractures Physical Therapy Evaluation Date: 07/04/18 SUBJECTIVE: Prior Hospitalization: H 06/30/18 thru 07/04/18 Prior Level of Function: Independent with ADLs. Assist from family for IADLs. Pt reports she completes community mobility only when going out for medical appointments. Family assists with IADLs. Encouraged pt to report number of falls on average in the last month and reports "I don't want to admit that to you." Prior Living Status: Apartment Community Services: No known needs Home Accessibility: Pt reports 2 small steps; one onto porch and the threshold.; All needs on one level; Tub/shower combination Equipment Owned: RW, Cane, Shower chair Medical Complications/Past Medical History: Chronic UTI, pulmonary nodule, CKD, Chronic AFib, Type 2 DM. See EMR for further details. Psychosocial Support: Assist from family for IADLs Pain Scale (0-10): Pt reports significant muscle spasms on R) trunk; alleviated by use of rice pack. No numerical rating provided. OBJECTIVE: Strength: R) UE limited by pain; B) LE's 4/5 based on functional mobility. ROM: (please note any abnormalities) B) LE's WFL Sensation: (please note any abnormalities) no paresthesias reported Other Neuro findings: n/a Bed Mobility: Min A using hospital bed. Transfers: Mod A - CGA Assistive Device: Front wheeled walker Gait: CGA-Min A x 30' Assistive device: Front wheeled walker Timed Up and Go (>12 seconds indicated increased risk for falls): 1 minute; 13 seconds with FWW 10 meter walk test (0.6m/second cannot function independently): n/a Other Objective Measures: n/a ASSESSMENT: Pt continues to demonstrate variable physical performance often demonstrating decreased balance and decreased incite into limitations. Therapy team has recommended 24 hour care. Pt has agreed to transfer to [facility]. Problem List/Current Limitations: Pain, Decreased balance, Decreased problem solving Short Term Goals: 1. Pt to be modified indep for bed mobility from a flat bed with least restrictive assistive device. 2. Pt to be modified indep for sit to/from stand from a variety of surfaces to simulate home furnishings. 3. Pt to ambulate with least restrictive device x 150' with vital signs in safe range and CGA/Min assist for path negotiation to simulate community mobility. 4. Pt to ambulate 50' with Modified indep on even surfaces with FWW. 5. Pt to lo up/down small platform step x [address] of pt's home with CGA/Min assist. [facility] Goals: Pt to return home with adequate level of assistance provided to improve safety. Patient Goals: Return home indep Rehabilitation Prognosis: Good Barriers for Discharge: Pt's awareness of limitations and family ability to be involved with care. PLAN: DC to [facility]. Thank you for this referral. If you have any questions, concerns, or comments about this report or plan, please contact me at . MTDD
== END 2018-07-19 13:45 | disposition home or self-care (01) | DRG 560 ==
LOC: ECF 10:15
PROVIDERS: ADMIT Internal Medicine; ATTEND Internal Medicine
DX: S22.41XD Multiple fractures of ribs, right side, subsequent encounter for fracture with routine healing (principal); N39.0 Urinary tract infection, site not specified; B48.8 Other specified mycoses; E11.22 Type 2 diabetes mellitus with diabetic chronic kidney disease; I12.9 Hypertensive chronic kidney disease with stage 1 through stage 4 chronic kidney disease, or unspecified chronic kidney disease; N18.3 Chronic kidney disease, stage 3 (moderate); I25.10 Atherosclerotic heart disease of native coronary artery without angina pectoris; I48.2 Chronic atrial fibrillation; R91.1 Solitary pulmonary nodule; R00.1 Bradycardia, unspecified; T46.1X5A Adverse effect of calcium-channel blockers, initial encounter; B96.89 Other specified bacterial agents as the cause of diseases classified elsewhere; Z79.01 Long term (current) use of anticoagulants; Z79.84 Long term (current) use of oral hypoglycemic drugs; W18.39XD Other fall on same level, subsequent encounter; Y92.002 Bathroom of unspecified non-institutional (private) residence as the place of occurrence of the external cause; Y99.8 Other external cause status
CPT/HCPCS: 36415; 36416; 81001; 82310; 82374; 82435; 82565; 82947; 82948; 84132; 84295; 84520; 85014; 85018; 85025; 87088; 97161; 97166; J0696; J1815; J7040

== ENCOUNTER 2018-08-02 11:00 | Emergency (ER) | payer MEDICARE, OTHER ==
[2018-06-30 10:58] VITALS: Wt 68.0 kg
[~2018-08-02 11:00] MED LIST changes: +ATOR20TA65 PO; +DILT120C12 PO; -DILT120C18 PO; +GABA-549 PO; +HYDR-2966 PO; -LOSA100T69 PO; +LOSA100T75 PO; -LOSA25TA52 PO; +LOSA25TA57 PO; -LOSA50TA74 PO; +LOSA50TA80 PO; +TRAM-420 PO
--- NOTE | 2018-08-02 11:03 | ER Report ---
History and Physical Time Seen By MD: 10:58 HPI/ROS CHIEF COMPLAINT: Hematuria HISTORY OF PRESENT ILLNESS: This is a 72-year-old female who arrives via EMS from the [facility] for blood either in the urine or stool. The patient had a traumatic fall roughly 1 month ago, had multiple broken ribs on the right side, was in the extended care unit and then transferred to the [facility] for rehabilitation. Patient states she's been doing "okay" since however she does continue to have right sided pain. According to the staff at the [facility] this morning the noted that patient had a large clots in her attends. The patient states she noted a small clots in her attends yesterday, she's unsure where the blood is coming from. Patient denies rectal pain, no dysuria or vaginal discomfort. Patient does have a history of stage III kidney disease, bypass surgery. REVIEW OF SYSTEMS: Constitutional: No fever, no chills. Eyes: No discharge. ENT: No sore throat. Cardiovascular: No chest pain, no palpitations. Respiratory: No cough, no shortness of breath. Gastrointestinal: No abdominal pain, no vomiting. Genitourinary: As above. Musculoskeletal: As above. Skin: No rashes. Neurological: No headache. Allergies: Coded Allergies: ketorolac (Verified Allergy, Severe, COULD NOT SEE, N&V, THOUGHT SHE WAS GOING TO , 08/02/18) ibuprofen (Verified Adverse Reaction, Unknown, DIZZINESS, NAUSEA, VOMITING, 08/02/18) Home Meds Active Scripts Levofloxacin 500 Mg Tab (LEVAQUIN 500 MG TAB) 500 Mg Tablet, 250 MG PO Q24H for 10 Days, #10 TAB Prov:MIMI SALGADO [facility]- 08/02/18 Gabapentin (GABAPENTIN) 300 Mg Capsule, 300 MG PO BID, #60 CAPSULE Prov:MARIAJOSE RODARTE [facility] 07/18/18 Tramadol Hcl (TRAMADOL HCL) 50 Mg Tablet, 50 MG PO Q6H PRN for PAIN, #60 TAB Prov:MARIAJOSE RODARTE [facility] 07/18/18 Hydrochlorothiazide (HYDROCHLOROTHIAZIDE) 25 Mg Tablet, 25 MG PO QDAY, #30 TAB Prov:MARIAJOSE RODARTE [facility] 07/18/18 Mirabegron (MYRBETRIQ) 50 Mg Tab.er.24h, 50 MG PO DAILY for overactive bladder for 30 Days, #30 CAP 3 Refills Prov:MACHELLE ISBELL MD 06/18/18 Carvedilol (CARVEDILOL) 25 Mg Tablet, 25 MG PO BID, #60 Prov:SARAVANAN PADILLA MD 04/01/18 Rivaroxaban (XARELTO 10 MG TAB (OR EQUIV)) 10 Mg Tablet, 15 MG PO QDAY@1700, #30 TAB Prov:YARELI THURMAN MD 09/02/17 Digoxin (Digox) 125 Mcg Tablet, 0.125 MG PO QDAY, #30 TAB 1 Refill Prov:RAMIN THURMAN MD 02/14/17 Reported Medications Lysine (LYSINE) 1,000 Mg Tablet, 500 MG PO BID 08/02/18 Melatonin (MELATONIN) 3 Mg Tablet, 3 MG PO HS 08/02/18 Atorvastatin Calcium (ATORVASTATIN CALCIUM) 20 Mg Tablet, 1 TAB PO QDAY, TAB 07/06/18 Oxygen (OXYGEN) Inha, 3 L INH, L 06/18/17 Lysine (LYSINE) 500 Mg Tablet, 500 MG PO BID 04/27/16 Cranberry Extract (CRANBERRY) 200 Mg Capsule, 200 MG PO BID, CAPSULE 11/11/14 Glucosamine Sulfate 2KCL (GLUCOSAMINE) 1,000 Mg Tablet, 1000 MG PO BID for 30 Days 04/14/14 Multivitamin (MULTI VITAMIN DAILY) 1 Each Tablet, 1 EACH PO QDAY 04/14/14 Insulin Human Regular (Humulin R) 100 U/Ml Vial, 5 U SC TIDCF SS FOR BS 200-250 2 UNITS, 251-300 4 UNITS, 301-350 6 UNITS, 351-400 8 UNITS, OVER 400 10 UNITS 03/04/12 Nph, Human Insulin Isophane (HUMULIN N) 100 Unit/1 Ml Vial, 45 UNIT SQ BIDBS 03/04/12 Discontinued Scripts Sulfamethoxazole/Trimet 800-160 Mg Tab (BACTRIM DS TABLET) 1 Each Tablet, 1 TAB PO Q12H PRN for UTI symptoms for 3 Days, #20 TAB 3 Refills Prov:MACHELLE ISBELL MD 06/18/18 Past Medical/Surgical History The patient has a past medical and surgical history of migraines, CABG 3, myocardial infarction, A. fib, hypertension, is on continuous oxygen 24 7, pneumonia, GERD, urinary incontinence, frequent urinary tract infections, back pain, wears glasses, type II diabetes with insulin, back surgeries 3, leukemia, tonsillectomy, cataracts, lipoma excision. Reviewed Nurses Notes: Yes Hx Smoking: No Smoking Status: Never Smoker Exposure to Second Hand Smoke?: Yes (sauler smokes) Hx Substance Use Disorder: No Hx Alcohol Use: No Constitutional Vital Sign - Last 24 Hours 08/02/18 08/02/18 08/02/18 08/02/18 11:00 11:05 11:07 11:09 Temp 98.5 Pulse ? 54 Resp 16 B/P (MAP) 154/94 (114) 154/94 Pulse Ox 95 O2 Delivery Nasal Cannula 08/02/18 08/02/18 08/02/18 08/02/18 11:10 11:15 11:20 11:25 Pulse 78 64 63 66 Pulse Ox 84 94 100 100 08/02/18 08/02/18 08/02/18 08/02/18 11:30 11:35 11:40 11:45 Pulse 59 59 64 57 Resp 12 12 9 Pulse Ox 100 99 100 99 08/02/18 08/02/18 08/02/18 08/02/18 11:50 11:53 11:55 12:00 Pulse 52 59 44 Resp 12 0 16 B/P (MAP) 171/77 (108) 138/88 (105) Pulse Ox 100 81 08/02/18 08/02/18 08/02/18 08/02/18 12:20 12:25 12:25 12:30 Pulse 75 47 60 Resp 17 12 13 B/P (MAP) 162/83 (109) Pulse Ox 91 O2 Flow Rate 2.0 08/02/18 08/02/18 08/02/18 08/02/18 12:35 12:40 12:45 12:50 Pulse 68 72 ? Resp 17 23 Pulse Ox 92 08/02/18 08/02/18 08/02/18 08/02/18 12:55 13:00 13:05 13:10 Pulse 57 57 53 61 Resp 17 18 9 8 08/02/18 08/02/18 08/02/18 08/02/18 13:15 13:20 13:25 13:30 Pulse 37 61 52 43 Resp 8 16 10 B/P (MAP) 170/100 (123) Pulse Ox 98 98 99 08/02/18 08/02/18 08/02/18 08/02/18 13:35 13:40 13:45 13:50 Pulse 60 59 52 60 Pulse Ox 99 99 94 98 08/02/18 08/02/18 08/02/18 08/02/18 13:55 14:00 14:05 14:10 Pulse 61 67 56 59 Pulse Ox 86 95 98 91 08/02/18 08/02/18 08/02/18 08/02/18 14:15 14:20 14:25 14:30 Pulse 61 56 60 51 B/P (MAP) ???/??? (1665) Pulse Ox 98 99 100 99 08/02/18 08/02/18 08/02/18 08/02/18 14:35 14:40 14:45 14:50 Pulse 42 70 67 51 Pulse Ox 100 98 91 97 08/02/18 08/02/18 08/02/18 08/02/18 14:55 15:00 15:05 15:10 Pulse 49 68 64 73 B/P (MAP) 162/74 (103) Pulse Ox 99 95 96 Physical Exam General Appearance: The patient is alert, has no immediate need for airway protection and no signs of toxicity. Eyes: Pupils equal and round no pallor or injection. ENT, Mouth: Mucous membranes are dry. Respiratory: There are no retractions, diminished right sided lung sounds. Cardiovascular: Regular rate and rhythm, systolic murmur, no clicks or rubs. Gastrointestinal: Abdomen is soft and non tender, no masses, bowel sounds normal. Small nonthrombosed hemorrhoid. No blood noted. Neurological: Alert and oriented 4. Moving all extremities. Following all commands. No focal neuro deficits. Skin: Warm and dry, no rashes. Excoriated external genitalia and vaginal area. No blood noted in the vaginal area however when her tens were removed there was what appeared to be blood tinged urine on the attends. No clots. Musculoskeletal: Neck is supple non tender. Extremities are nontender, nonswollen and have full range of motion. DIFFERENTIAL DIAGNOSIS: After history and physical exam differential diagnosis was considered for pneumonia, any fracture, cancer, kidney stone, upper and lower GI bleed, thrombosed hemorrhoid and urinary tract infection. Medical Decision Making Data Points Result Diagram: 08/02/18 1135 08/02/18 1135 Laboratory Hematology Test 08/02/18 00:00 08/02/18 11:20 08/02/18 11:30 08/02/18 11:35 Digoxin Level 1.6 ng/ml Digoxin Last Dose Date unk Digoxin Last Dose Time unk Urine Color Red Urine Clarity Turbid Urine pH Color interference Urine Specific [place] Color interference Urine Protein Color interference Urine Glucose (UA) Color interference Urine Ketones Color interference Urine Blood Color interference Urine Nitrite Color interference Urine Bilirubin Color interference Urine Urobilinogen Color interference Urine Leukocyte Esterase Color interference Urine RBC 4633 /HPF (0-2/HPF) Urine WBC 635 /HPF (0-5/HPF) Urine Squamous Epithelial Cells Many /LPF (NONE-FEW) Urine Calcium Oxalate Crystals Moderate /HPF (NONE) Urine Bacteria Negative /HPF (NONE-FEW) Urine Mucus None /HPF (NONE-FEW) Troponin I 0.046 ng/ml Red Blood Count 4.35 M/uL (4.17-5.56) Mean Corpuscular Volume 88.0 fL (80.0-96.0) Mean Corpuscular Hemoglobin 28.9 pg (26.0-33.0) Mean Corpuscular Hemoglobin Concent 32.8 g/dL (32.0-36.0) Red Cell Distribution Width 13.9 % (11.5-14.5) Mean Platelet Volume 9.9 fL (7.2-11.1) Neutrophils (%) (Auto) 75.6 % (39.4-72.5) Lymphocytes (%) (Auto) 14.5 % (17.6-49.6) Monocytes (%) (Auto) 6.9 % (4.1-12.4) Eosinophils (%) (Auto) 2.3 % (0.4-6.7) Basophils (%) (Auto) 0.7 % (0.3-1.4) Nucleated RBC Relative Count (auto) 0.0 /100WBC Neutrophils # (Auto) 6.7 K/uL (2.0-7.4) Lymphocytes # (Auto) 1.3 K/uL (1.3-3.6) Monocytes # (Auto) 0.6 K/uL (0.3-1.0) Eosinophils # (Auto) 0.2 K/uL (0.0-0.5) Basophils # (Auto) 0.1 K/uL (0.0-0.1) Nucleated RBC Absolute Count (auto) 0.00 K/uL Stool Occult Blood (IFOB) Positive (NEGATIVE) Sodium Level 136 mmol/L (137-145) Potassium Level 4.6 mmol/L (3.5-5.0) Chloride Level 95 mmol/L (98-107) Carbon Dioxide Level 35 mmol/L (22-31) Blood Urea Nitrogen 19 mg/dl (7-18) Creatinine 1.50 mg/dl (0.52-1.04) Glomerular Filtration Rate Calc 34.0 Random Glucose 195 mg/dl (75-110) Calcium Level 10.1 mg/dl (8.4-10.2) Total Bilirubin 0.2 mg/dl (0.2-1.3) Aspartate Amino Transf (AST/SGOT) 27 U/L (0-35) Alanine Aminotransferase (ALT/SGPT) 27 U/L (0-56) Alkaline Phosphatase 127 U/L (0-126) Total Protein 6.5 g/dl (6.3-8.2) Albumin 3.3 g/dl (3.5-5.0) Chemistry Test 08/02/18 00:00 08/02/18 11:20 08/02/18 11:30 08/02/18 11:35 Digoxin Level 1.6 ng/ml Digoxin Last Dose Date unk Digoxin Last Dose Time unk Urine Color Red Urine Clarity Turbid Urine pH Color interference Urine Specific [place] Color interference Urine Protein Color interference Urine Glucose (UA) Color interference Urine Ketones Color interference Urine Blood Color interference Urine Nitrite Color interference Urine Bilirubin Color interference Urine Urobilinogen Color interference Urine Leukocyte Esterase Color interference Urine RBC 4633 /HPF (0-2/HPF) Urine WBC 635 /HPF (0-5/HPF) Urine Squamous Epithelial Cells Many /LPF (NONE-FEW) Urine Calcium Oxalate Crystals Moderate /HPF (NONE) Urine Bacteria Negative /HPF (NONE-FEW) Urine Mucus None /HPF (NONE-FEW) Troponin I 0.046 ng/ml White Blood Count 8.9 k/uL (4.5-11.0) Red Blood Count 4.35 M/uL (4.17-5.56) Hemoglobin 12.6 g/dL (12.0-16.0) Hematocrit 38.3 % (34.0-47.0) Mean Corpuscular Volume 88.0 fL (80.0-96.0) Mean Corpuscular Hemoglobin 28.9 pg (26.0-33.0) Mean Corpuscular Hemoglobin Concent 32.8 g/dL (32.0-36.0) Red Cell Distribution Width 13.9 % (11.5-14.5) Platelet Count 170 K/uL (150-450) Mean Platelet Volume 9.9 fL (7.2-11.1) Neutrophils (%) (Auto) 75.6 % (39.4-72.5) Lymphocytes (%) (Auto) 14.5 % (17.6-49.6) Monocytes (%) (Auto) 6.9 % (4.1-12.4) Eosinophils (%) (Auto) 2.3 % (0.4-6.7) Basophils (%) (Auto) 0.7 % (0.3-1.4) Nucleated RBC Relative Count (auto) 0.0 /100WBC Neutrophils # (Auto) 6.7 K/uL (2.0-7.4) Lymphocytes # (Auto) 1.3 K/uL (1.3-3.6) Monocytes # (Auto) 0.6 K/uL (0.3-1.0) Eosinophils # (Auto) 0.2 K/uL (0.0-0.5) Basophils # (Auto) 0.1 K/uL (0.0-0.1) Nucleated RBC Absolute Count (auto) 0.00 K/uL Stool Occult Blood (IFOB) Positive (NEGATIVE) Glomerular Filtration Rate Calc 34.0 Calcium Level 10.1 mg/dl (8.4-10.2) Total Bilirubin 0.2 mg/dl (0.2-1.3) Aspartate Amino Transf (AST/SGOT) 27 U/L (0-35) Alanine Aminotransferase (ALT/SGPT) 27 U/L (0-56) Alkaline Phosphatase 127 U/L (0-126) Total Protein 6.5 g/dl (6.3-8.2) Albumin 3.3 g/dl (3.5-5.0) Toxicology Test 08/02/18 00:00 Digoxin Level 1.6 ng/ml Digoxin Last Dose Date unk Digoxin Last Dose Time unk Urinalysis Test 08/02/18 11:20 Urine Color Red Urine Clarity Turbid Urine pH Color interference Urine Specific [place] Color interference Urine Protein Color interference Urine Glucose (UA) Color interference Urine Ketones Color interference Urine Blood Color interference Urine Nitrite Color interference Urine Bilirubin Color interference Urine Urobilinogen Color interference Urine Leukocyte Esterase Color interference Urine RBC 4633 /HPF (0-2/HPF) Urine WBC 635 /HPF (0-5/HPF) Urine Squamous Epithelial Cells Many /LPF (NONE-FEW) Urine Calcium Oxalate Crystals Moderate /HPF (NONE) Urine Bacteria Negative /HPF (NONE-FEW) Urine Mucus None /HPF (NONE-FEW) EKG/Imaging EKG Interpretation 12 lead EKG: Time of EKG left 55. Rhythm: Atrial fibrillation, ventricular rate 67 bpm. [place]: Rightward axis QRS: normal ST segments: No ST depression or elevation identified, upslope T-wave in V2. Subtle changes from the 08/30/2017 EKG, overall no significant changes. Current EKG showing inverted T-wave in V1, which is different from the previous EKG. Same inverted T wave pattern in the V4, V5 and V6. Imaging Exam type: CHEST SINGLE AP History: r side with mult rib fx, dim lung on right Comparison: July 03, 2018. Portable chest and CT chest seven pelvis June 30, 2018 Findings: There has been further partial improvement of the left pleural effusion and left basilar airspace consolidation. The multiple right-sided rib fractures are better depicted on the prior CT. There is no evidence of a pneumothorax or right-sided pulmonary consolidation or pleural effusion. The cardiac silhouette is normal in size. There are sternotomy sutures present IMPRESSION: 1. Right lung appears well aerated Partial improvement of the left basilar consolidation and pleural effusion Report Dictated By: Greer Coughlin MD at 08/02/2018 12:03 PM Report E-Signed By: Greer Coughlin MD at 08/02/2018 12:06 PM WSN:[email or web address] EXAMINATION: CT Abdomen and Pelvis Without Contrast 08/02/2018 11:19 AM HISTORY: hematuria,rct fall mult rib fx,kidney inj? TECHNIQUE: Renal stone protocol - Spiral scan was obtained through the kidneys, ureters and bladder without intravenous contrast. One of the following dose optimization techniques was utilized in the performance of this exam: Automated exposure control; adjustment of the mA and/or kV according to the patient's size; or use of an iterative reconstruction technique. Specific details can be referenced in the facility's radiology CT exam operational policy. COMPARISON STUDIES: Chest x-ray today. CT 06/30/2018. FINDINGS: Right kidney and ureter: Calcifications in the kidney. The vascular without definite stone. No caliectasis. Ureter is mildly prominent. No ureteric calculus. Unremarkable unenhanced cortical contours. No perinephric stranding or fluid. Left kidney and ureter: Ureteral prominence is slightly greater than on the right. No stone or other obstructing etiology. Unremarkable unenhanced cortex. Calcifications appear to be vascular, as on the right. No perinephric fluid or stranding. Bladder: Thick-walled bladder. There is haziness of periserosal fat. Liver / biliary: Vascular calcifications within the liver. Cholecystolithiasis. Pancreas: negative Spleen: negative Adrenal glands: Mild benign-appearing thickening of the left adrenal. Retroperitoneum: negative Pelvic structures: Leiomyomatous uterus. No adnexal mass evident. Bowel / peritoneum / mesenteries: Hiatal hernia. Diverticulosis of the distal colon. No ascites or free air. Vessels: Extensive atherosclerosis including coronary disease. Aorta is not dilated. Musculoskeletal / Body wall: Subacute fractures in lateral and posterior lower ribs on the right. Infiltration in subcutaneous fat in the ventral abdomen is likely related to injections. Tiny fatty umbilical hernia. Degenerative changes in the spine with degenerative stenosis most severely at L3-4. Laminectomy below this. Lymph node assessment: negative Lower chest: Small left effusion and minimal pleural fluid or thickening on the right. IMPRESSION: 1. No injury or other acute renal finding. 2. Mild prominence of both ureters greater on the left than the right with thick-walled although incompletely distended bladder. Is there any history of urinary retention? 3. Left effusion and minimal pleural fluid on the right. Subacute right rib fractures. Report Dictated By: Franklin Zepeda MD at 08/02/2018 12:34 PM Report E-Signed By: Franklin Zepeda MD at 08/02/2018 12:46 PM WSN:[id number] ED Course/Re-evaluation Clinical Indication for ER IV: Hydration, IV Access ED Course The patient was admitted to room. A history and physical were obtained. His diagnoses were considered. An IV was started. A CBC, CMP, troponin, Hemoccult stool and UA were collected. CBC unremarkable, chemistry consistent with previous exams, Sodium 136, BUN 19, creatinine 1.50, glucose 195, troponin 0.46, likely from elevated creatinine. Single view chest x-ray showing Right lung appears well aerated Partial improvement of the left basilar consolidation and pleural effusion. CT of the abdomen and pelvis showing Mild prominence of both ureters greater on the left than the right with thick-walled although incompletely distended bladder. With the gross hematuria and the urine white blood cell count of 635, a did give the patient a dose of Rocephin in the ER, also sent her home with a prescription for Levaquin. As she was bradycardic in the emergency Department rate in the 30s or 40s, I did speak with the hospitalist, Dr. Zhao as noted below, and also spoke with the patient's primary care provider Dr. Melendez, as noted below. We'll go ahead and stop the patient's carvedilol and digoxin until she follows up with her primary care provider next week. The results were reviewed with the patient, I also talked her about stopping the carvedilol and digoxin, the patient is in agreement with this plan of care and was discharged back to the [facility]. With a positive Hemoccult stool I did recommend following up with Dr. Wilson for reevaluation. I also recommended following up with Dr. Isbell her new urologist for reevaluation. The patient will continue on her Xarelto. Patient was given 30 g IV fentanyl and 650 mg by mouth Tylenol for her rib pain. Patient had no other questions or concerns. 08/02/2018 3:00:01 pm I did speak with Dr. Zhao the hospitalist on-call, regarding the patient's case, he did review her charts, it did determine that she was bradycardic when she was in the hospital previously, did suggest stopping her carvedilol and digoxin. I also spoke with Dr. Melendez, the patient's primary care provider he agrees with this plan of care, stopping her carvedilol and digoxin and following up with him next week. Decision to Disposition Date: Aug 02, 2018 Decision to Disposition Time: 15:35 Depart Departure Latest Vital Signs Vital Signs Date Time Temp Pulse Resp B/P (MAP) Pulse Ox O2 Delivery O2 Flow Rate FiO2 08/02/18 15:10 73 96 08/02/18 15:00 162/74 (103) 08/02/18 13:25 10 08/02/18 12:25 2.0 08/02/18 11:09 98.5 Nasal Cannula Impression: Primary Impression: UTI (lower urinary tract infection) Condition: Improved Disposition: HOME OR SELF-CARE Referrals: KARIN MELENDEZ DO (PCP) 1 Week MACHELLE ISBELL MD 5 Days New Scripts Levofloxacin 500 Mg Tab (LEVAQUIN 500 MG TAB) 500 Mg Tablet 250 MG PO Q24H for 10 Days, #10 TAB Prov: MIMI SALGADO 08/02/18 Patient Instructions: Urinary Traction Infection in Older Adults (ED) Additional Instructions: You have a recurrent urinary tract infection. You were given one dose of IV antibiotics. Stop the carvedilol and digoxin until follow up with Dr. Melendez next week. You have been given a prescription for Levaquin for your urinary tract infection, please start this on 08/03 and follow up with Dr. Isbell next week for reevaluation. Please follow up with Dr. Medina for the microscopic blood in your stool. Please follow up with Dr. Melendez next week for reevaluation. Drink plenty of water. Get plenty of rest. Return to the ED for any other concerns or worsening symptoms. MIMI SALGADO Aug 02, 2018 11:03
[2018-08-02] MEDS ORDERED: NS(*) 0.9% 1000 ML BAG 500 ML IV ONE (11:19)
[2018-08-02 11:45] LABS: PLATELET COUNT, AUTOMATED 170 K/uL (150-450)
[2018-08-02] MEDS ORDERED: [UNRECOGNIZED DRUG - CODE] PO (11:53)
[2018-08-02] MEDS ORDERED: MELA3TAB31 PO (11:53)
[2018-08-02] MEDS ORDERED: NS(*) 0.9% 500 ML BAG 500 ML ONE (11:56)
--- NOTE | 2018-08-02 11:59 | EKG ---
FACILITY: [facility] PATIENT NAME: ELIZABETH ROD : [id number] MR: [id number] V: [id number] EXAM DATE: ORDERING PHYSICIAN: MIMI SALGADO TECHNOLOGIST: Test Reason : CARDIAC Blood Pressure : / mmHG Vent. Rate : 067 BPM Atrial Rate : 087 BPM P-R Int : 000 ms QRS Dur : 096 ms QT Int : 410 ms P-R-T Axes : 000 107 234 degrees QTc Int : 433 ms Atrial fibrillation Rightward axis ST and T wave abnormality, consider inferolateral ischemia Abnormal ECG When compared with ECG of 30-JUN-2018 10:19, Sinus rhythm has replaced Atrial fibrillation Vent. rate has decreased BY 43 BPM Non-specific change in ST segment in Anterior leads T wave inversion now evident in Lateral leads Confirmed by SANJU ESCALANTE ([id number]) on 08/02/2018 3:00:27 PM Referred By: Confirmed By:SANJU ESCALANTE
--- NOTE | 2018-08-02 12:11 | RADIOLOGY IMAGING REPORT ---
FAC[place] [facility] [place]IENT NAME: Elena Saunders : 1945 MR: [id number] V: [id number] EXAM DATE: [id number] ORDERING PHYSICIAN: MIMI SALGADO TECHNOLOGIST: Location: [facility] [place] Patient: Elena Saunders : 1945 Visit/Account:[id number] Date of Sevice: 08/02/2018 Exam type: CHEST SINGLE AP History: r side with mult rib fx, dim lung on right Comparison: July 03, 2018. Portable chest and CT chest seven pelvis June 30, 2018 Findings: There has been further partial improvement of the left pleural effusion and left basilar airspace con solidation. The multiple right-sided rib fractures are better depicted on the prior CT. There is no evidence of a pneumothorax or right-sided pulmonary consolidation or pleural effusion. The cardiac silhouette is normal in size. There are sternotomy sutures present IMPRESSION: 1. Right lung appears well aerated Partial improvement of the left basilar consolidation and pleural effusion Report Dictated By: Greer Coughlin MD at 08/02/2018 12:03 PM Report E-Signed By: Greer Coughlin MD at 08/02/2018 12:06 PM WSN:[email or web address]
--- NOTE | 2018-08-02 12:52 | RADIOLOGY IMAGING REPORT ---
FACILITY: [facility] PATIENT NAME: Elena Saunders : 1945 MR: [id number] V: [id number] EXAM DATE: [id number] ORDERING PHYSICIAN: MIMI SALGADO TECHNOLOGIST: Location: [facility] Patient: Elena Saunders : 1945 Visit/Account:[id number] Date of Sevice: 08/02/2018 EXAMINATION: CT Abdomen and Pelvis Without Contrast 08/02/2018 11:19 AM HISTORY: hematuria,rct fall mult rib fx,kidney inj? TECHNIQUE: Renal stone protocol - Spiral scan was obtained through the kidneys, ureters and bladder without intravenous contrast. One of the following dose optimization techniques was utilized in the performance of this exam: Autom ated exposure control; adjustment of the mA and/or kV according to the patient's size; or use of an i terative reconstruction technique. Specific details can be referenced in the facility's radiology C T exam operational policy. COMPARISON STUDIES: Chest x-ray today. CT 06/30/2018. FINDINGS: Right kidney and ureter: Calcifications in the kidney. The vascular without definite stone. No caliec tasis. Ureter is mildly prominent. No ureteric calculus. Unremarkable unenhanced cortical contours. N o perinephric stranding or fluid. Left kidney and ureter: Ureteral prominence is slightly greater than on the right. No stone or other obstructing etiology. Unremarkable unenhanced cortex. Calcifications appear to be vascular, as on the right. No perinephric fluid or stranding. Bladder: Thick-walled bladder. There is haziness of periserosal fat. Liver / biliary: Vascular calcifications within the liver. Cholecystolithiasis. Pancreas: negative Spleen: negative Adrenal glands: Mild benign-appearing thickening of the left adrenal. Retroperitoneum: negative Pelvic structures: Leiomyomatous uterus. No adnexal mass evident. Bowel / peritoneum / mesenteries: Hiatal hernia. Diverticulosis of the distal colon. No ascites or fr ee air. Vessels: Extensive atherosclerosis including coronary disease. Aorta is not dilated. Musculoskeletal / Body wall: Subacute fractures in lateral and posterior lower ribs on the right. Inf iltration in subcutaneous fat in the ventral abdomen is likely related to injections. Tiny fatty umbi lical hernia. Degenerative changes in the spine with degenerative stenosis most severely at L3-4. Archer inectomy below this. Lymph node assessment: negative Lower chest: Small left effusion and minimal pleural fluid or thickening on the right. IMPRESSION: 1. No injury or other acute renal finding. 2. Mild prominence of both ureters greater on the left than the right with thick-walled although inco mpletely distended bladder. Is there any history of urinary retention? 3. Left effusion and minimal pleural fluid on the right. Subacute right rib fractures. Report Dictated By: Franklin Zepeda MD at 08/02/2018 12:34 PM Report E-Signed By: Franklin Zepeda MD at 08/02/2018 12:46 PM WSN:[id number]
[2018-08-02] MEDS ORDERED: fentaNYL CITR 100 MCG/2 ML AMP IVP ONE ×2 (13:35→14:00)
[2018-08-02] MEDS ORDERED: cefTRIAXone 1 GM VIAL IVP ONE (13:35)
[2018-08-02] MEDS ORDERED: ACETAMINOPHEN 325 MG TAB PO ONE (13:40)
[2018-08-02] MEDS ORDERED: NS(*) 0.9% 100 ML ADDVANT BAG 100 ML ONE (13:55)
[2018-08-02] MEDS ORDERED: LEVO-85 PO (14:02)
[2018-08-02 15:00] VITALS: BP 162/74
[2018-08-02] MEDS ORDERED: ONDANSETRON 4 MG/2 ML VIAL ONE (15:32)
== END 2018-08-02 16:15 | disposition home or self-care (01) ==
LOC: ER 11:09
DX: N39.0 Urinary tract infection, site not specified (principal); J90 Pleural effusion, not elsewhere classified; R00.1 Bradycardia, unspecified; I48.91 Unspecified atrial fibrillation
CPT/HCPCS: 36416; 71045; 74176; 80162; 81001; 82274; 82948; 84484; 85025; 87077; 87088; 87186; 93005; 96361; 96374; 96375; 99284; A4353; A9270; J0696; J3010; J7030; 82040; 82247; 82310; 82374; 82435; 82565; 82947; 84075; 84132; 84155; 84295; 84450; 84460; 84520

== ENCOUNTER 2018-08-15 16:57 | Emergency (ER) | payer MEDICARE, OTHER ==
[2018-06-30 10:58] VITALS: Wt 68.4 kg
[~2018-08-15 16:57] MED LIST changes: -DILT120T11 PO
--- NOTE | 2018-08-15 16:58 | ER Report ---
History and Physical Time Seen By MD: 17:13 HPI/ROS CHIEF COMPLAINT: atrial fibrillation with rapid rate HISTORY OF PRESENT ILLNESS: This is a 72 year old female. She was at the cancer center today and received some IVIG. She has atrial fibrillation with rapid rate there, and was treated with an extra dose of Carvedilol 6.25mg and then later with an IV dose of Diltiazem 15mg. She had her treatments which included 650mg oral Tylenol, 10mg Dexamethasone, and 25mg Benadryl. The IVIG was a 40g IV dose. The Diltiazem has worn off and her rate is back up. Asymptomatic earlier and now. No chest pain. No shortness of breath. Allergies: Coded Allergies: ketorolac (Verified Allergy, Severe, COULD NOT SEE, N&V, THOUGHT SHE WAS GOING TO , 08/15/18) ibuprofen (Verified Adverse Reaction, Unknown, DIZZINESS, NAUSEA, VOMITING, 08/15/18) Home Meds Active Scripts Diltiazem Hcl (CARDIZEM LA) 120 Mg Tab.er.24h, 120 MG PO QDAY, #30 TAB.SR.24H 0 Refills Prov:FRAN DEY MD 08/15/18 Nystatin 100,000 Unit/Gm Top Powder (NYSTATIN 100,000 UNIT/GM TOP POWDER) 15 Gm Powder, 15 GM TP BID for 7 Days, #1 TUBE Apply to affected areas topically twice a day for 7 days. Prov:MACHELLE ISBELL MD 08/15/18 Fluconazole (DIFLUCAN) 100 Mg Tablet, 100 MG PO QDAY for 2 Days, #2 CAPSULE Take 1 tablet every 24 hours for 2 days. Prov:MACHELLE ISBELL MD 08/15/18 Gabapentin (GABAPENTIN) 300 Mg Capsule, 300 MG PO BID, #60 CAPSULE Prov:MARIAJOSE RODARTEP 07/18/18 Tramadol Hcl (TRAMADOL HCL) 50 Mg Tablet, 50 MG PO Q6H PRN for PAIN, #60 TAB Prov:MARIAJOSE RODARTEP 07/18/18 Hydrochlorothiazide (HYDROCHLOROTHIAZIDE) 25 Mg Tablet, 25 MG PO QDAY, #30 TAB Prov:MARIAJOSE RODARTE [facility] 07/18/18 Mirabegron (MYRBETRIQ) 50 Mg Tab.er.24h, 50 MG PO DAILY for overactive bladder for 30 Days, #30 CAP 3 Refills Prov:MACHELLE ISBELL MD 06/18/18 Rivaroxaban (XARELTO 10 MG TAB (OR EQUIV)) 10 Mg Tablet, 15 MG PO QDAY@1700, #30 TAB Prov:YARELI THURMAN MD 09/02/17 Reported Medications Carvedilol (CARVEDILOL) 6.25 Mg Tab, 6.25 MG PO BID, TAB 08/15/18 Melatonin (MELATONIN) 3 Mg Tablet, 3 MG PO HS 08/02/18 Atorvastatin Calcium (ATORVASTATIN CALCIUM) 20 Mg Tablet, 1 TAB PO QDAY, TAB 07/06/18 Oxygen (OXYGEN) Inha, 3 L INH, L 06/18/17 Lysine (LYSINE) 500 Mg Tablet, 500 MG PO BID 04/27/16 Cranberry Extract (CRANBERRY) 200 Mg Capsule, 200 MG PO BID, CAPSULE 11/11/14 Glucosamine Sulfate 2KCL (GLUCOSAMINE) 1,000 Mg Tablet, 1000 MG PO BID for 30 Days 04/14/14 Multivitamin (MULTI VITAMIN DAILY) 1 Each Tablet, 1 EACH PO QDAY 04/14/14 Insulin Human Regular (Humulin R) 100 U/Ml Vial, 5 U SC TIDCF SS FOR BS 200-250 2 UNITS, 251-300 4 UNITS, 301-350 6 UNITS, 351-400 8 UNITS, OVER 400 10 UNITS 03/04/12 Nph, Human Insulin Isophane (HUMULIN N) 100 Unit/1 Ml Vial, 45 UNIT SQ BIDBS 03/04/12 Discontinued Reported Medications Lysine (LYSINE) 1,000 Mg Tablet, 500 MG PO BID 08/02/18 Discontinued Scripts Levofloxacin 500 Mg Tab (LEVAQUIN 500 MG TAB) 500 Mg Tablet, 250 MG PO Q24H for 10 Days, #10 TAB Prov:MIMI SALGADO CLINICAL RESOURCE MANAGER-BC 08/02/18 Carvedilol (CARVEDILOL) 25 Mg Tablet, 25 MG PO BID, #60 Prov:SARAVANAN PADILLA MD 04/01/18 Digoxin (Digox) 125 Mcg Tablet, 0.125 MG PO QDAY, #30 TAB 1 Refill Prov:RAMIN THURMAN MD 02/14/17 Reviewed Nurses Notes: Yes Hx Smoking: No Smoking Status: Never Smoker Exposure to Second Hand Smoke?: Yes (daugher smokes) Hx Substance Use Disorder: No Hx Alcohol Use: No Constitutional Vital Sign - Last 24 Hours 08/15/18 08/15/18 08/15/18 08/15/18 17:05 17:11 17:15 17:15 Pulse 156 Resp 20 B/P (MAP) 99/79 99/79 (86) 100/68 (79) Pulse Ox 94 O2 Delivery Nasal Cannula O2 Flow Rate 3.0 08/15/18 08/15/18 08/15/18 08/15/18 17:30 18:00 18:30 18:45 Pulse 113 133 131 Resp 14 15 16 11 B/P (MAP) 116/65 (82) 123/84 (97) 118/93 (101) 108/97 (101) 08/15/18 08/15/18 08/15/18 08/15/18 19:00 19:05 19:15 19:20 Pulse 87 ??? 107 Resp 10 49 14 B/P (MAP) 111/87 (95) 105/95 (98) 08/15/18 08/15/18 08/15/18 08/15/18 19:30 19:35 19:45 19:50 Pulse 89 101 Resp 11 17 B/P (MAP) 110/66 (81) 135/78 (97) 08/15/18 19:59 B/P (MAP) 135/96 (109) Physical Exam General Appearance: The patient is alert. No acute distress. Eyes: Pupils are equal, round. No pallor, injection or icterus. ENT: Mucous membranes are moist. Respiratory: Lungs are clear to auscultation. Cardiovascular: Tachycardia with irregularly irregular rate. Neurological: Alert and oriented x3. No focal neurologic deficits Skin: Warm and dry. DIFFERENTIAL DIAGNOSIS: After history and physical exam, differential diagnosis was considered for atrial fibrillation with rapid rate, asymptomatic. Will give repeat Diltiazem IV followed by oral Diltiazem extended release. Medical Decision Making Data Points Result Diagram: 08/15/181827 Laboratory Hematology Test 08/15/18 17:29 08/15/18 18:28 Whole Blood Glucose 282 mg/DL (75-110) Sodium Level 133 mmol/L (137-145) Potassium Level 4.7 mmol/L (3.5-5.0) Chloride Level 99 mmol/L (98-107) Carbon Dioxide Level 26 mmol/L (22-31) Blood Urea Nitrogen 30 mg/dl (7-18) Creatinine 2.00 mg/dl (0.52-1.04) Glomerular Filtration Rate Calc 24.4 Random Glucose 352 mg/dl (75-110) Calcium Level 9.0 mg/dl (8.4-10.2) Troponin I 0.040 ng/ml Digoxin Level < 0.4 ng/ml Digoxin Last Dose Date unk Digoxin Last Dose Time unk Chemistry Test 08/15/18 17:29 08/15/18 18:28 Whole Blood Glucose 282 mg/DL (75-110) Glomerular Filtration Rate Calc 24.4 Calcium Level 9.0 mg/dl (8.4-10.2) Troponin I 0.040 ng/ml Digoxin Level < 0.4 ng/ml Digoxin Last Dose Date unk Digoxin Last Dose Time unk Toxicology Test 08/15/18 18:28 Digoxin Level < 0.4 ng/ml Digoxin Last Dose Date unk Digoxin Last Dose Time unk EKG/Imaging EKG Interpretation 12 lead EKG: Rhythm: A. fib, rate 104. Fluctuating between 101 50 on the monitor. [place]: normal QRS: Left posterior fascicular block ST segments: Nonspecific ED Course/Re-evaluation Clinical Indication for ER IV: IV Access ED Course Patient given her night time dose of Carvedilol 6.25mg. Cardizem 15mg IV given followed by 120mg extended release diltiazem for rate control. Discharged back to assisted living. Decision to Disposition Date: Aug 15, 2018 Decision to Disposition Time: 19:00 Depart Departure Latest Vital Signs Vital Signs Date Time Temp Pulse Resp B/P (MAP) Pulse Ox O2 Delivery O2 Flow Rate FiO2 08/15/18 19:59 135/96 (109) 08/15/18 19:50 101 17 08/15/18 17:15 3.0 08/15/18 17:05 94 Nasal Cannula Impression: Primary Impression: Atrial fibrillation with rapid ventricular response Condition: Improved Disposition: HOME OR SELF-CARE Referrals: KARIN MELENDEZ DO (PCP) New Scripts Diltiazem Hcl (CARDIZEM LA) 120 Mg Tab.er.24h 120 MG PO QDAY, #30 TAB.SR.24H 0 Refills Prov: FRAN DEY MD 08/15/18 Patient Instructions: A-fib (Atrial Fibrillation) (ED) Additional Instructions: Start Diltiazem 120mg extended release once a day. Follow-up with Dr. Melendez. FRAN DEY MD Aug 15, 2018 16:58
[2018-08-15] MEDS ORDERED: DILTIAZEM CD 120 MG CAPCR PO ONE (17:20)
[2018-08-15] MEDS ORDERED: DILTIAZEM 5 MG/ML 5ML IVPUSH IVP ONE ×3 (17:20→19:20)
--- NOTE | 2018-08-15 17:46 | EKG ---
FACILITY: [facility] [place] PATIENT NAME: ELIZABETH ROD : [id number] MR: [id number] V: [id number] EXAM DATE: ORDERING PHYSICIAN: FRAN DEY TECHNOLOGIST: GINETTE Test Reason : A FIB Blood Pressure : / mmHG Vent. Rate : 104 BPM Atrial Rate : 138 BPM P-R Int : 000 ms QRS Dur : 100 ms QT Int : 364 ms P-R-T Axes : 000 110 263 degrees QTc Int : 478 ms Atrial fibrillation with rapid ventricular response Left posterior fascicular block Possible Anterior infarct , age undetermined ST and T wave abnormality, consider inferior ischemia or digitalis effect Abnormal ECG When compared with ECG of 02-AUG-2018 11:55, Vent. rate has increased BY 37 BPM T waves have normalized laterally T waves inversion less pronounced inferiorly Confirmed by UMM APONTE ([id number]) on 08/15/2018 6:44:01 PM Referred By: YISSEL Confirmed By:UMM APONTE
[2018-08-15] MEDS ORDERED: DILT120T11 PO (17:47)
[2018-08-15] MEDS ORDERED: CARVEDILOL 6.25 MG TAB PO ONE (18:05)
[2018-08-15 19:59] VITALS: BP 135/96
== END 2018-08-15 20:15 | disposition home or self-care (01) ==
LOC: ER 17:02
DX: I48.0 Paroxysmal atrial fibrillation (principal)
CPT/HCPCS: 36416; 80162; 82948; 84484; 93005; 96374; 96376; 99284; A9270; J3490; 82310; 82374; 82435; 82565; 82947; 84132; 84295; 84520

== ENCOUNTER → 2018-08-15 | Outpatient (CLI) | payer MEDICARE, OTHER ==
[2018-06-30 10:58] VITALS: BMI 26.6
[~2018-08-15] MED LIST changes: +CAR6.25 PO; +DILT120T11 PO; +FLUC100T35 PO; +LEVO-85 PO; +MELA3TAB31 PO; +NYST15PO4 TP; +[UNRECOGNIZED DRUG - CODE] PO
== END ==
LOC: AMB 20:09
PROVIDERS: ATTEND Nurse Practitioner
DX: Z76.89 Persons encountering health services in other specified circumstances (principal)
CPT/HCPCS: A0425; A0428

== ENCOUNTER → 2018-08-23 | Outpatient (CLI) | payer MEDICARE, OTHER ==
[2018-06-30 10:58] VITALS: BMI 26.6
[~2018-08-23] MED LIST changes: +DILT120T11 PO
== END ==
LOC: LAB 13:49
PROVIDERS: ATTEND Urology
DX: N39.0 Urinary tract infection, site not specified (principal)
CPT/HCPCS: 87077; 87088; 87186

== ENCOUNTER → 2018-08-26 | Outpatient (REF) | payer MEDICARE, OTHER ==
[2018-06-30 10:58] VITALS: BMI 26.6
== END ==
LOC: ZZSENDIN 14:49
PROVIDERS: ATTEND Family Medicine
DX: I50.9 Heart failure, unspecified (principal)
CPT/HCPCS: 83880

== ENCOUNTER → 2018-09-07 | Outpatient (CLI) | payer MEDICARE, OTHER ==
[~2018-09-07] MED LIST changes: +ACET-1966 PO; -AMLO-111 PO; +AMLO-125 PO; +BUPR200T34 PO; +FURO40TA35 PO; +INSU100I28 SQ; +NITR-57 PO; +POTA10CA40 PO; +[UNRECOGNIZED DRUG - CODE] TOP
[2018-09-08 09:38] VITALS: BMI 30.9
== END ==
LOC: AMB 14:43
PROVIDERS: ATTEND Nurse Practitioner
DX: R06.02 Shortness of breath (principal); R07.9 Chest pain, unspecified
CPT/HCPCS: A0425; A0427

== ENCOUNTER 2018-09-16 07:58 | Outpatient (RCR) | payer MEDICARE, OTHER ==
[2018-07-18] MEDS: LIDOCAINE/SOD BICARB 8.4% SYR ID PRN (09:43)
[2018-07-18] MEDS: NS(*) 0.9% 100 ML BAG 100 ML IVPB PRN (09:44)
[2018-07-18 09:46] VITALS: BP 114/83
[2018-07-18] MEDS: diphenhydrAMINE 25 MG CAP PO PRN (09:47)
[2018-07-18] MEDS: ACETAMINOPHEN 325 MG TAB PO PRN (09:49)
[2018-07-18] MEDS: DEXAMETHASONE SOD PHOS 10MG/ML IVP PRN (09:50)
[2018-07-18 11:04] VITALS: BP 133/114
[2018-07-18 11:30] VITALS: BP 147/86
--- NOTE | 2018-07-18 11:55 | NUR ---
SW administered HADS assessment, scored 7 on depression and 10 on anxiety.
[2018-07-18 12:15] VITALS: BP 152/76
[2018-08-15] VITALS (7 sets, daily range): BP systolic 102–134; BP diastolic 74–106
[2018-08-15] MEDS: NS(*) 0.9% 100 ML BAG 100 ML IVPB PRN ×2 (09:26→12:31)
[2018-08-15] MEDS: LIDOCAINE/SOD BICARB 8.4% SYR ID PRN (09:26)
[2018-08-15 09:38] LABS: PLATELET COUNT, AUTOMATED 333 K/uL (150-450)
--- NOTE | 2018-08-15 10:26 | NUR ---
Pt presents with AFIB heart rate in 160's. Asymptomatic. BP 124/77. Due to get IVIG today with Dex premeds. Confirmed with [facility] that she indeed got her dose of 6.25mg Coreg this morning. Called Dr. Mead for consult, recommendations of another dose of oral Coreg and IV Diltiazem if HR not decreased. Called Dr. Barboza who agrees with plan. Verbal orders obtained and patient updated on status. Will continue to keep patient on ECG monitor for remainder of treatment today.
[2018-08-15] MEDS: diphenhydrAMINE 25 MG CAP PO PRN (12:29)
[2018-08-15] MEDS: ACETAMINOPHEN 325 MG TAB PO PRN (12:29)
[2018-08-15] MEDS: DEXAMETHASONE SOD PHOS 10MG/ML IVP PRN (12:31)
[2018-09-08 09:38] VITALS: Wt 73.0 kg
--- NOTE | 2018-09-13 14:37 | NUR ---
SW met with the pt today at the assisted. SW and patient contacted the patient's bank to have them fax a copy of her bank statements to send with the medicaid application. SW also obtained other income documentation (social security award letter and penitentiary account statement) to send with the application. The application was emailed to the department of health's application center.
[~2018-09-16 07:58] MED LIST changes: +CARVEDILOL 6.25 MG TAB PO ONE; +DEXTROSE 5%(*) 100 ML BAG 100 ML IVPB PRN; +DILTIAZEM 5 MG/ML 5ML IVPUSH IVP ONE; +IMMU GLOB(IGG) 20GR/200ML VIAL 200 ML IV ONE; +IMMU GLOB(IGG) 20GR/200ML VIAL 40 GR in EMPTY EVACUATED CONT 0 ML IVPB ONE
[2018-09-16 08:04] VITALS: BP 150/98
[2018-09-16] MEDS: ACETAMINOPHEN 325 MG TAB PO PRN (08:26)
[2018-09-16] MEDS: NS(*) 0.9% 100 ML BAG 100 ML IVPB PRN (08:27)
[2018-09-16] MEDS: diphenhydrAMINE 25 MG CAP PO PRN (08:27)
[2018-09-16] MEDS: LIDOCAINE/SOD BICARB 8.4% SYR ID PRN (08:27)
[2018-09-16] MEDS ORDERED: IMMU GLOB(IGG) 20GR/200ML VIAL 200 ML IV ONE ×2 (08:40→11:30)
[2018-09-16 09:22] LABS: PLATELET COUNT, AUTOMATED 259 K/uL (150-450)
[2018-09-16 13:03] VITALS: BP 150/90
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
== END 2018-09-30 ==
LOC: SPU 07:58
PROVIDERS: ATTEND Internal Medicine
DX: C82.80 Other types of follicular lymphoma, unspecified site (principal); N18.9 Chronic kidney disease, unspecified; J98.9 Respiratory disorder, unspecified; Z99.81 Dependence on supplemental oxygen; D80.1 Nonfamilial hypogammaglobulinemia; Z87.440 Personal history of urinary (tract) infections; R06.02 Shortness of breath; N39.0 Urinary tract infection, site not specified; Z79.4 Long term (current) use of insulin; I12.9 Hypertensive chronic kidney disease with stage 1 through stage 4 chronic kidney disease, or unspecified chronic kidney disease; E11.22 Type 2 diabetes mellitus with diabetic chronic kidney disease
CPT/HCPCS: 82784; 85025; 96365; 96366; A9270; J1459; J7050; Q0163; 82040; 82247; 82310; 82374; 82435; 82565; 82947; 84075; 84132; 84155; 84295; 84450; 84460; 84520; 96361; 96375; J1100; J3490

== ENCOUNTER 2018-10-08 10:24 | Outpatient (RCR) | payer MEDICARE, OTHER ==
[2018-09-08 09:38] VITALS: BMI 30.9
[~2018-10-08 10:24] MED LIST changes: -CARVEDILOL 6.25 MG TAB PO ONE; -DEXTROSE 5%(*) 100 ML BAG 100 ML IVPB PRN; -DILTIAZEM 5 MG/ML 5ML IVPUSH IVP ONE; -IMMU GLOB(IGG) 20GR/200ML VIAL 200 ML IV ONE; -IMMU GLOB(IGG) 20GR/200ML VIAL 40 GR in EMPTY EVACUATED CONT 0 ML IVPB ONE
[2018-10-08 10:28] VITALS: BP 178/81
--- NOTE | 2018-10-08 12:36 | [facility] ONCOLOGY NOTE ---
EVENT DATE: October 08, 2018 CHIEF COMPLAINT/REASON FOR VISIT Mr. Saunders is a pleasant, 73-year old female with numerous comorbidities as well as a history of SLL and hypogammaglobulinemia that presents for followup. HISTORY OF PRESENT ILLNESS Elena returns. She was diagnosed with a low-grade non-Hodgkin's lymphoma (SLL) after a CABG workup in 2012. She has numerous comorbidities including chronic kidney disease, COPD, heart disease. 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 She is having frequent infections and continues to have low immunoglobulin and I anticipate she needs IVIG indefinitely. She does get fatigue for about 24 hours with each dose but I believe the benefits greatly outweigh the risks given her history of infections and other issues. She is currently in a care facility as she had a fall with multiple rib fractures and she is hoping to get home soon. PAST MEDICAL/SURGICAL HISTORY 1. Cataract surgery. 2. Coronary artery disease. 3. Coronary artery bypass grafting in 2012, followed by Dr. Ronald Swanson. 4. Hyperlipidemia. 5. Hypertension. 6. History of back surgery. 7. Diabetes. 8. 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 9. 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 SOCIAL HISTORY Patient currently lives here in [place]. She has multiple children, grandchildren, and great-grandchildren here in the region. Her youngest great- grandchild is now almost 4 years old. FAMILY HISTORY Noncontributory. REVIEW OF SYSTEMS CONSTITUTIONAL: No fevers or chills. Significant weight change. HEENT: No headache or vision changes. CARDIOVASCULAR: No chest pain or dyspnea on exertion. EXTREMITIES: No clubbing, cyanosis or edema. RESPIRATORY: Positive shortness of breath. Positive O2 use. Sedentary lifestyle. GASTROINTESTINAL: No nausea or vomiting. GENITOURINARY: No dysuria or hematuria. MUSCULOSKELETAL: No weakness. PSYCHIATRIC: No anxiety or depression. ENDOCRINE: No heat or cold intolerance. LYMPHATIC: No concerning new lumps or bumps. HEMATOLOGIC: No bruising or bleeding issues. Remainder of 14-point review of systems otherwise negative. PHYSICAL EXAMINATION VITAL SIGNS: Blood pressure 178/81, pulse 80, respiratory rate 16, temperature 97.9 Fahrenheit, oxygen saturation 90% on 3L. Pain 0/10, fatigue 9/10. GENERAL: Stable condition, resting comfortably in the chair. ECOG Performance Status of 3. HEENT: Normocephalic, atraumatic. LYMPHATIC: No appreciable cervical, supraclavicular or axillary adenopathy. ABDOMEN: Soft, nontender. EXTREMITIES: No clubbing, cyanosis or significant edema. Remainder of physical exam deferred today due to amount of time spent in counseling, coordination of care and review of her records. IMPRESSION AND PLAN Ms. Saunders is a very pleasant, 73-year-old female with the followin. Low grade non-Hodgkin lymphoma/SLL. Continue active surveillance. She has not required treatment for this. I reviewed her imaging from the last three months, which show no significant increase in adenopathy. 2. 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 Her baseline IgG was severely low at 175. We increased the dose of her IVIG and continued the current frequency. She is getting replacement above 400 with the most recent level in the 500's. Continue this indefinitely. 3. History of heart failure and diastolic heart dysfunction. 4. History of atrial fibrillation history. 5. History of chronic obstructive pulmonary disease. 6. History of chronic kidney disease. 7. History of recent falls. She is getting stronger, she believes, and hopes she is able to get home from her care facility in the near future. Defer to that care facility regarding when it is safe for her to do so. I answered all of her many questions today. No new treatment needed. I would like to see her every three months. BILLING Return visit level 4. Total time 30 minutes, counseling time 20. MTDD
[2018-10-15] MEDS ORDERED: NS(*) 0.9% 100 ML BAG 100 ML IVPB PRN (14:40)
[2018-10-15] MEDS ORDERED: LIDOCAINE/SOD BICARB 8.4% SYR ID PRN (14:40)
[2018-10-15] MEDS ORDERED: DEXTROSE 5%(*) 100 ML BAG 100 ML IVPB PRN (14:40)
[2018-10-15] MEDS ORDERED: ACETAMINOPHEN 325 MG TAB PO PRN (14:45)
[2018-10-15] MEDS ORDERED: DEXAMETHASONE SOD PHOS 10MG/ML IVP PRN (14:45)
[2018-10-15] MEDS ORDERED: diphenhydrAMINE 25 MG CAP PO PRN (14:45)
[2018-10-28] MEDS ORDERED: DILT120C28 PO (19:51)
[2018-11-05] MEDS ORDERED: NITR-57 PO (10:48)
[2018-11-05] MEDS ORDERED: TAMS0.4C25 PO (10:48)
[2018-11-05] MEDS ORDERED: AMLO-125 PO (10:56)
[2018-11-19] MEDS ORDERED: NITR-57 PO (17:00)
[2018-11-21] MEDS ORDERED: CEPH500T7 PO (16:44)
[2018-11-21] MEDS ORDERED: PHEN200T32 PO (16:44)
[2018-11-29] MEDS ORDERED: BUPR-136 PO (20:49)
[2018-12-22] MEDS ORDERED: NPH,100V2 SUBQ (21:38)
[2018-12-22] MEDS ORDERED: AMLO-127 PO (21:38)
== END 2019-01-05 ==
LOC: ONC 10:24
PROVIDERS: ATTEND Internal Medicine
DX: C85.90 Non-Hodgkin lymphoma, unspecified, unspecified site (principal); D80.1 Nonfamilial hypogammaglobulinemia; J44.9 Chronic obstructive pulmonary disease, unspecified; N18.9 Chronic kidney disease, unspecified
CPT/HCPCS: 99212

== ENCOUNTER 2018-10-28 12:17 | Inpatient (IN) | payer MEDICARE, OTHER ==
[~2018-10-28] VITALS: Ht 170.2 cm; Wt 70.3 kg
--- NOTE | 2018-10-28 12:43 | ER Report ---
History and Physical Time Seen By MD: 12:25 Hx. of Stated Complaint: ABD PAIN, WEAKNESS STARTED YESTERDAY HPI/ROS CHIEF COMPLAINT: abdominal pain HISTORY OF PRESENT ILLNESS: Patient is a 73 year old female presenting to the ED for abdominal pain. Patient states that it started yesterday. States it feels like "shards of glass". Pain is in the mid to upper abdomen. 8/10 pain scale. States pain does not change with eating, drinking, urination, or defecation. Daughter states that patient has not been taking her medications. States the pill box for the week has not changed since last Sunday. REVIEW OF SYSTEMS: Respiratory: No cough, no dyspnea. Cardiovascular: No chest pain, no palpitations. Patient states she feels like her heart is beating fast but also states that is common with her afib. Gastrointestinal: Patient states is nauseated but has not vomited. Denies pain with urination. Denies diarrhea or constipation. Musculoskeletal: No back pain. Allergies: Coded Allergies: ketorolac (Verified Allergy, Severe, COULD NOT SEE, N&V, THOUGHT SHE WAS GOING TO , 10/28/18) ibuprofen (Verified Adverse Reaction, Unknown, DIZZINESS, NAUSEA, VOMITING, 10/28/18) Home Meds Active Scripts Digoxin (Digox) 125 Mcg Tablet, 0.125 MG PO QDAY, #30 TAB Prov:MARIAJOSE RODARTE [facility] 09/11/18 Carvedilol (CARVEDILOL) 25 Mg Tablet, 25 MG PO BID, #60 TAB Prov:MARIAJOSE RODARTE [facility] 09/11/18 Gabapentin (GABAPENTIN) 300 Mg Capsule, 300 MG PO BID, #60 CAPSULE Prov:MARIAJOSE RODARTE [facility] 07/18/18 Tramadol Hcl (TRAMADOL HCL) 50 Mg Tablet, 50 MG PO Q6H PRN for PAIN, #60 TAB Prov:MRAIAJOSE RODARTE [facility] 07/18/18 Mirabegron (MYRBETRIQ) 50 Mg Tab.er.24h, 50 MG PO DAILY for overactive bladder for 30 Days, #30 CAP 3 Refills Prov:MACHELLE ISBELL MD 06/18/18 Reported Medications Diltiazem Hcl (DILTIAZEM 24HR ER) 120 Mg Cap.er.24h, 1 CAP PO QDAY 10/28/18 Nitrofurantoin Monohyd/M-Cryst (NITROFURANTOIN MONO-MCR 100 MG) 100 Mg Capsule, 100 MG PO DAILY for UTI prophylaxis, #30 CAPSULE 09/10/18 Vitamins A and D (Sween Cream) 85 Gm Cream..g., TOP QDAY PRN for ITCHING 09/09/18 Rivaroxaban 15 Mg (XARELTO 15 MG) 15 Mg Tablet, 15 MG PO QDAY, TAB 09/09/18 Glucosamine Sulfate 2KCL (GLUCOSAMINE) 1,000 Mg Tablet, 1000 MG PO BID 09/09/18 Insulin Lispro 100 Un/Ml Pen (HUMALOG 3 ML PEN) 100 Unit/1 Ml Insuln.pen, 100 UNIT SQ DIRECTED, DIS.SYR 09/08/18 Acetaminophen (TYLENOL) 325 Mg Tablet, 650 MG PO Q6H PRN for PAIN, TAB 09/08/18 Potassium Chloride (POTASSIUM CHLORIDE) 10 Meq Capsule.er, 10 MEQ PO DAILY 09/08/18 Bupropion HCl (Bupropion HCl ER) 200 Mg Tablet.er, 150 MG PO BID 09/08/18 Furosemide (LASIX) 40 Mg Tablet, 1 TAB PO DAILY, TAB 09/07/18 Melatonin (MELATONIN) 3 Mg Tablet, 3 MG PO HS 08/02/18 Atorvastatin Calcium (ATORVASTATIN CALCIUM) 20 Mg Tablet, 1 TAB PO QDAY, TAB 07/06/18 Oxygen (OXYGEN) Inha, 3 L INH, L 06/18/17 Lysine (LYSINE) 500 Mg Tablet, 500 MG PO BID 04/27/16 Cranberry Extract (CRANBERRY) 200 Mg Capsule, 200 MG PO BID, CAPSULE 11/11/14 Multivitamin (MULTI VITAMIN DAILY) 1 Each Tablet, 1 EACH PO QDAY 04/14/14 Nph, Human Insulin Isophane (HUMULIN N) 100 Unit/1 Ml Vial, 50 UNIT SQ BID 03/04/12 Past Medical/Surgical History Patient has a cardiac history with a myocardial infarction, CABG x 3 and 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 Patient also has chronic afib, hyp ertension, GERD, recurrent UTIs Diabetes type II, and leukemia. Patient has had 3 back surgeries, tonsillectomy, and cataract surgery. Reviewed Nurses Notes: Yes Hx Smoking: No Smoking Status: Never Smoker Exposure to Second Hand Smoke?: Yes (daugher smokes) Hx Substance Use Disorder: No Hx Alcohol Use: No Constitutional Vital Sign - Last 24 Hours 3/11/19 3/11/19 3/11/19 3/11/19 12:17 12:30 12:45 13:00 Temp 98.4 Pulse 148 122 111 Resp 14 B/P (MAP) 148/126 144/101 (115) Pulse Ox 96 91 100 O2 Delivery Nasal Cannula O2 Flow Rate 2.0 10/28/18 10/28/18 10/28/18 10/28/18 13:15 13:30 13:45 14:00 Pulse 138 120 147 153 Resp 20 39 27 B/P (MAP) 143/113 (123) 138/124 (129) Pulse Ox 100 99 96 10/28/18 10/28/18 10/28/18 10/28/18 14:30 14:45 15:00 15:15 Pulse 158 124 123 92 B/P (MAP) 144/109 (121) 146/106 (119) Pulse Ox 99 98 99 100 10/28/18 10/28/18 10/28/18 10/28/18 15:45 16:00 16:15 16:30 Pulse 91 77 82 86 Resp 15 13 13 B/P (MAP) 182/107 (132) 178/109 (132) Pulse Ox 90 97 100 10/28/18 10/28/18 10/28/18 10/28/18 16:45 17:00 17:15 17:30 Pulse 88 87 100 Resp 28 13 21 17 B/P (MAP) 157/124 (135) 179/130 (146) Pulse Ox 98 99 99 100 10/28/18 18:00 Pulse 149 Resp 25 B/P (MAP) 135/123 (127) Pulse Ox 87 Physical Exam General Appearance: The patient is alert, has no immediate need for airway protection and no current signs of toxicity. Respiratory: Chest is non tender, lungs are clear to auscultation. Cardiac: Irregularly irregular. No murmur noted. Gastrointestinal: Abdomen is soft, no masses, and bowel sounds normal. Tender to palpation across the upper abdomen. Musculoskeletal: Neck: Neck is supple and non tender. Extremities have full range of motion and are non tender. Skin: No rashes or lesions. DIFFERENTIAL DIAGNOSIS: After history and physical exam differential diagnosis was considered for bowel obstruction, cholithiasis. Medical Decision Making Data Points Result Diagram: 10/28/18 1254 10/28/18 1254 Laboratory Hematology Test 10/28/18 00:00 10/28/18 12:54 10/28/18 13:10 10/28/18 15:23 Osmolality 318 mOSM/K (275-295) Acetone, Qualitative Negative Red Blood Count 4.71 M/uL (4.17-5.56) Mean Corpuscular Volume 83.2 fL (80.0-96.0) Mean Corpuscular Hemoglobin 26.1 pg (26.0-33.0) Mean Corpuscular Hemoglobin Concent 31.4 g/dL (32.0-36.0) Red Cell Distribution Width 18.0 % (11.5-14.5) Mean Platelet Volume 9.7 fL (7.2-11.1) Neutrophils (%) (Auto) 72.1 % (39.4-72.5) Lymphocytes (%) (Auto) 18.6 % (17.6-49.6) Monocytes (%) (Auto) 7.4 % (4.1-12.4) Eosinophils (%) (Auto) 0.8 % (0.4-6.7) Basophils (%) (Auto) 1.1 % (0.3-1.4) Nucleated RBC Relative Count (auto) 0.0 /100WBC Neutrophils # (Auto) 5.8 K/uL (2.0-7.4) Lymphocytes # (Auto) 1.5 K/uL (1.3-3.6) Monocytes # (Auto) 0.6 K/uL (0.3-1.0) Eosinophils # (Auto) 0.1 K/uL (0.0-0.5) Basophils # (Auto) 0.1 K/uL (0.0-0.1) Nucleated RBC Absolute Count (auto) 0.00 K/uL Prothrombin Time 13.6 seconds (12.0-14.4) Prothromb Time International Ratio 1.04 Activated Partial Thromboplast Time 26 seconds (23-35) Sodium Level 139 mmol/L (137-145) Potassium Level 4.4 mmol/L (3.5-5.0) Chloride Level 103 mmol/L (98-107) Carbon Dioxide Level 30 mmol/L (22-31) Blood Urea Nitrogen 24 mg/dl (7-18) Creatinine 1.70 mg/dl (0.52-1.04) Glomerular Filtration Rate Calc 29.4 Random Glucose 401 mg/dl (75-110) Calcium Level 9.9 mg/dl (8.4-10.2) Total Bilirubin 0.6 mg/dl (0.2-1.3) Aspartate Amino Transf (AST/SGOT) 33 U/L (0-35) Alanine Aminotransferase (ALT/SGPT) 36 U/L (0-56) Alkaline Phosphatase 100 U/L (0-126) C-Reactive Protein 0.5 mg/dl (<1.0) Total Protein 6.1 g/dl (6.3-8.2) Albumin 3.6 g/dl (3.5-5.0) Amylase Level 44 U/L (0-110) Lipase 104 U/L (23-300) Digoxin Level 0.6 ng/ml Digoxin Last Dose Date Unk Digoxin Last Dose Time Unk Urine Color Yellow Urine Clarity Turbid Urine pH 6.0 pH (4.8-9.5) Urine Specific [place] 1.023 Urine Protein 100 mg/dL (NEGATIVE) Urine Glucose (UA) 500 mg/dL (NEGATIVE) Urine Ketones Negative mg/dL (NEGATIVE) Urine Blood Moderate (NEGATIVE) Urine Nitrite Positive (NEGATIVE) Urine Bilirubin Negative (NEGATIVE) Urine Urobilinogen Negative mg/dL (0.2-1.9) Urine Leukocyte Esterase Large (NEGATIVE) Urine RBC 25 /HPF (0-2/HPF) Urine WBC 1431 /HPF (0-5/HPF) Urine WBC Clumps Many /HPF Urine Squamous Epithelial Cells Moderate /LPF (NONE-FEW) Urine Bacteria Many /HPF (NONE-FEW) Urine Mucus None /HPF (NONE-FEW) Troponin I 0.082 ng/ml B-Type Natriuretic Peptide 734 pg/ml (0-100) Test 10/28/18 15:41 Influenza Virus Type A (PCR) Negative (NEGATIVE) Influenza Virus Type B (PCR) Negative (NEGATIVE) Chemistry Test 10/28/18 00:00 10/28/18 12:54 10/28/18 13:10 10/28/18 15:23 Osmolality 318 mOSM/K (275-295) Acetone, Qualitative Negative White Blood Count 8.0 k/uL (4.5-11.0) Red Blood Count 4.71 M/uL (4.17-5.56) Hemoglobin 12.3 g/dL (12.0-16.0) Hematocrit 39.1 % (34.0-47.0) Mean Corpuscular Volume 83.2 fL (80.0-96.0) Mean Corpuscular Hemoglobin 26.1 pg (26.0-33.0) Mean Corpuscular Hemoglobin Concent 31.4 g/dL (32.0-36.0) Red Cell Distribution Width 18.0 % (11.5-14.5) Platelet Count 298 K/uL (150-450) Mean Platelet Volume 9.7 fL (7.2-11.1) Neutrophils (%) (Auto) 72.1 % (39.4-72.5) Lymphocytes (%) (Auto) 18.6 % (17.6-49.6) Monocytes (%) (Auto) 7.4 % (4.1-12.4) Eosinophils (%) (Auto) 0.8 % (0.4-6.7) Basophils (%) (Auto) 1.1 % (0.3-1.4) Nucleated RBC Relative Count (auto) 0.0 /100WBC Neutrophils # (Auto) 5.8 K/uL (2.0-7.4) Lymphocytes # (Auto) 1.5 K/uL (1.3-3.6) Monocytes # (Auto) 0.6 K/uL (0.3-1.0) Eosinophils # (Auto) 0.1 K/uL (0.0-0.5) Basophils # (Auto) 0.1 K/uL (0.0-0.1) Nucleated RBC Absolute Count (auto) 0.00 K/uL Prothrombin Time 13.6 seconds (12.0-14.4) Prothromb Time International Ratio 1.04 Activated Partial Thromboplast Time 26 seconds (23-35) Glomerular Filtration Rate Calc 29.4 Calcium Level 9.9 mg/dl (8.4-10.2) Total Bilirubin 0.6 mg/dl (0.2-1.3) Aspartate Amino Transf (AST/SGOT) 33 U/L (0-35) Alanine Aminotransferase (ALT/SGPT) 36 U/L (0-56) Alkaline Phosphatase 100 U/L (0-126) C-Reactive Protein 0.5 mg/dl (<1.0) Total Protein 6.1 g/dl (6.3-8.2) Albumin 3.6 g/dl (3.5-5.0) Amylase Level 44 U/L (0-110) Lipase 104 U/L (23-300) Digoxin Level 0.6 ng/ml Digoxin Last Dose Date Unk Digoxin Last Dose Time Unk Urine Color Yellow Urine Clarity Turbid Urine pH 6.0 pH (4.8-9.5) Urine Specific [place] 1.023 Urine Protein 100 mg/dL (NEGATIVE) Urine Glucose (UA) 500 mg/dL (NEGATIVE) Urine Ketones Negative mg/dL (NEGATIVE) Urine Blood Moderate (NEGATIVE) Urine Nitrite Positive (NEGATIVE) Urine Bilirubin Negative (NEGATIVE) Urine Urobilinogen Negative mg/dL (0.2-1.9) Urine Leukocyte Esterase Large (NEGATIVE) Urine RBC 25 /HPF (0-2/HPF) Urine WBC 1431 /HPF (0-5/HPF) Urine WBC Clumps Many /HPF Urine Squamous Epithelial Cells Moderate /LPF (NONE-FEW) Urine Bacteria Many /HPF (NONE-FEW) Urine Mucus None /HPF (NONE-FEW) Troponin I 0.082 ng/ml B-Type Natriuretic Peptide 734 pg/ml (0-100) Test 10/28/18 15:41 Influenza Virus Type A (PCR) Negative (NEGATIVE) Influenza Virus Type B (PCR) Negative (NEGATIVE) Coagulation Test 10/28/18 12:54 Prothrombin Time 13.6 seconds Prothromb Time International Ratio 1.04 Activated Partial Thromboplast Time 26 seconds Toxicology Test 10/28/18 00:00 10/28/18 12:54 Acetone, Qualitative Negative Digoxin Level 0.6 ng/ml Digoxin Last Dose Date Unk Digoxin Last Dose Time Unk Urinalysis Test 10/28/18 13:10 Urine Color Yellow Urine Clarity Turbid Urine pH 6.0 pH (4.8-9.5) Urine Specific [place] 1.023 Urine Protein 100 mg/dL (NEGATIVE) Urine Glucose (UA) 500 mg/dL (NEGATIVE) Urine Ketones Negative mg/dL (NEGATIVE) Urine Blood Moderate (NEGATIVE) Urine Nitrite Positive (NEGATIVE) Urine Bilirubin Negative (NEGATIVE) Urine Urobilinogen Negative mg/dL (0.2-1.9) Urine Leukocyte Esterase Large (NEGATIVE) Urine RBC 25 /HPF (0-2/HPF) Urine WBC 1431 /HPF (0-5/HPF) Urine WBC Clumps Many /HPF Urine Squamous Epithelial Cells Moderate /LPF (NONE-FEW) Urine Bacteria Many /HPF (NONE-FEW) Urine Mucus None /HPF (NONE-FEW) EKG/Imaging Imaging EXAMINATION: CT ABDOMEN AND PELVIS WITHOUT CONTRAST COMPARISON: 08/02/2018 and earlier. HISTORY: Abdomen pain for one day. PROCEDURE: Multiplanar noncontrast CT of the abdomen and pelvis. One of the following dose optimization techniques was utilized in the performance of this exam: Automated exposure control; adjustment of the mA and/or kV according to the patient's size; or use of an iterative reconstruction technique. Specific details can be referenced in the facility's radiology CT exam operational policy. FINDINGS: Evaluation of the solid and viscus parenchymal organs and vascular structures is limited without the benefit of IV contrast. Visualized thorax: Chronic small left pleural effusion. Chronic cardiac chamber enlargement. Coronary calcifications. Lung base volume loss versus scarring. Small hiatal hernia. Liver: Noncontrast imaging of the visualized liver is within normal limits. Gallbladder and biliary system: Cholelithiasis. Or definite pericholecystic inflammation. No bile duct dilation. Spleen: Negative. Pancreas: Noncontrast imaging of the pancreas is within normal limits. Adrenal glands: Unchanged mild nonfocal adrenal gland thickening suggestive of hyperplasia. No discrete nodule. Kidneys and bladder: No renal mass or hydronephrosis. Extensive vascular calcifications bilaterally but no definite radiopaque urolithiasis. Urinary bl adder wall mild irregular thickening and perivesical inflammation. Vessels: Advanced aortoiliac and mesenteric atherosclerosis. No abdominal aortic aneurysm. Bowel and mesentery: Small hiatal hernia. No gastric distention. No small bowel obstruction. Appendix is unremarkable. Minimal stool in the colon. Sigmoid moderate diverticulosis. No bowel or mesenteric inflammation. Pelvic organs: Heterogeneously enlarged uterus containing multiple masses. Lymph nodes: No adenopathy. Free air/free fluid: None. Abdominal wall and osseous structures: Small fat-containing inguinal hernias bilaterally. Demineralization with lumbar spine multilevel advanced degenerative disc disease. At least moderate canal stenosis at L3-L4. L4-L5 posterior decompression. No acute findings. IMPRESSION: 1. Urinary bladder wall irregular thickening and perivesical inflammation. Correlation with any clinical evidence of a urinary tract infection/cystitis is recommended and if there are any risk factors for bladder malignancy consider referral for cystoscopy as clinically indicated. 2. Heterogeneously enlarged uterus containing multiple masses. These are likely uterine fibroids but correlation with any history of abnormal bleeding is recommended with referral to gynecology if there is any clinical concern for malignancy. 3. Additional chronic/incidental findings as described above. Report Dictated By: Gaudencio Kolb MD at 10/28/2018 2:40 PM Report E-Signed By: Gaudencio Kolb MD at 10/28/2018 2:51 PM ED Course/Re-evaluation ED Course Patient was admitted to the ED and placed in a bed. History and physical were obtained. Differential diagnoses were considered. IV was placed and labs were drawn. Patient's blood sugar was found to be 401. Regular insulin 10 units was give via IV. Recheck of blood sugar was 263. BUN and Creatinine were elevated so unable to do CT scan with contrast. Instead did a CT scan without contrast. The CT scan showed gallstones and a UTI. The daughter states the patient has not been taking her medications. States her pills was put in the pill box for the week on Sunday. Patient has not taken any of the pills out of the pill boxes since then. Daughter states the patient has not been letting the home health nurses in the house. Contacted the home health company and talked to the nurse. Nurse confirmed that the patient has not been allowing the home health nurses and aids into the house. The patient does not want to go back to [facility]. After the daughter talked to the patient for a while, she said they will check into [place]. Will admit to the hospital for UTI and failure to thrive. Report given to the hospitalist. Patient transferred to the floor. Decision to Disposition Date: Oct 28, 2018 Decision to Disposition Time: 17:52 Depart Departure Latest Vital Signs Vital Signs Date Time Temp Pulse Resp B/P (MAP) Pulse Ox O2 Delivery O2 Flow Rate FiO2 10/28/18 18:00 149 25 135/123 (127) 87 10/28/18 12:30 2.0 10/28/18 12:17 98.4 Nasal Cannula Impression: Primary Impression: UTI (lower urinary tract infection) Additional Impression: Failure to thrive Condition: Condition Unchanged Disposition: Admitted from ER Referrals: KARIN MELENDEZ DO (PCP) Problem Qualifiers Additional Impression: Failure to thrive Failure to thrive age range: in adult Qualified Codes: R62.7 - Adult failure to thrive DAVID MAYERS [facility] Oct 28, 2018 12:43
[2018-10-28] MEDS ORDERED: NS(*) 0.9% 500 ML BAG 500 ML IV ONE (12:44)
[2018-10-28] MEDS ORDERED: ONDANSETRON 4 MG/2 ML VIAL IVP ONE (12:45)
[2018-10-28] MEDS ORDERED: IOPAMIDOL 76% 100 ML INFUS BTL 100 ML ONE (12:59)
[2018-10-28 13:16] LABS: PLATELET COUNT, AUTOMATED 298 K/uL (150-450)
[2018-10-28 13:17] LABS: INR 1.04
[2018-10-28] MEDS ORDERED: NS(*) 0.9% 1000 ML BAG 1,000 ML IV ONE (13:50)
[2018-10-28] MEDS ORDERED: INSU HUM REG 100 U/ML(ER ONLY) 10 ML VIAL IV ONE (13:50)
--- NOTE | 2018-10-28 14:12 | EKG ---
FACILITY: [facility] PATIENT NAME: ELIZABETH ROD : [id number] MR: [id number] V: [id number] EXAM DATE: ORDERING PHYSICIAN: DAVID MAYERS TECHNOLOGIST: GINETTE Test Reason : DISORIENTED Blood Pressure : / mmHG Vent. Rate : 117 BPM Atrial Rate : 136 BPM P-R Int : 000 ms QRS Dur : 096 ms QT Int : 264 ms P-R-T Axes : 000 110 -84 degrees QTc Int : 368 ms Atrial fibrillation Nonspecific interventricular conduction delay ST and T wave abnormality, consider inferolateral ischemia Abnormal ECG Confirmed by RAMIN THURMAN ([id number]) on 10/28/2018 2:56:58 PM Referred By: DAVID Confirmed By:RAMIN THURMAN
[2018-10-28] MEDS ORDERED: DILTIAZEM 5 MG/ML 5ML IVPUSH IVP ONE (14:55)
--- NOTE | 2018-10-28 14:55 | RADIOLOGY IMAGING REPORT ---
FACILITY: [facility] PATIENT NAME: Elena Saunders : 1945 MR: [id number] V: [id number] EXAM DATE: ORDERING PHYSICIAN: DAVID MAYERS TECHNOLOGIST: Location: [facility] Patient: Elena Saunders : 1945 Visit/Account:[id number] Date of Sevice: 10/28/2018 EXAMINATION: CT ABDOMEN AND PELVIS WITHOUT CONTRAST COMPARISON: 08/02/2018 and earlier. HISTORY: Abdomen pain for one day. PROCEDURE: Multiplanar noncontrast CT of the abdomen and pelvis. One of the following dose optimizati on techniques was utilized in the performance of this exam: Automated exposure control; adjustment of the mA and/or kV according to the patient's size; or use of an iterative reconstruction technique. Specific details can be referenced in the facility's radiology CT exam operational policy. FINDINGS: Evaluation of the solid and viscus parenchymal organs and vascular structures is limited wi thout the benefit of IV contrast. Visualized thorax: Chronic small left pleural effusion. Chronic cardiac chamber enlargement. Coronary calcifications. Lung base volume loss versus scarring. Small hiatal hernia. Liver: Noncontrast imaging of the visualized liver is within normal limits. Gallbladder and biliary system: Cholelithiasis. Or definite pericholecystic inflammation. No bile melissa t dilation. Spleen: Negative. Pancreas: Noncontrast imaging of the pancreas is within normal limits. Adrenal glands: Unchanged mild nonfocal adrenal gland thickening suggestive of hyperplasia. No discre te nodule. Kidneys and bladder: No renal mass or hydronephrosis. Extensive vascular calcifications bilaterally b ut no definite radiopaque urolithiasis. Urinary bladder wall mild irregular thickening and perivesica l inflammation. Vessels: Advanced aortoiliac and mesenteric atherosclerosis. No abdominal aortic aneurysm. Bowel and mesentery: Small hiatal hernia. No gastric distention. No small bowel obstruction. Appendix is unremarkable. Minimal stool in the colon. Sigmoid moderate diverticulosis. No bowel or mesenteric inflammation. Pelvic organs: Heterogeneously enlarged uterus containing multiple masses. Lymph nodes: No adenopathy. Free air/free fluid: None. Abdominal wall and osseous structures: Small fat-containing inguinal hernias bilaterally. Demineraliz ation with lumbar spine multilevel advanced degenerative disc disease. At least moderate canal stenos is at L3-L4. L4-L5 posterior decompression. No acute findings. IMPRESSION: 1. Urinary bladder wall irregular thickening and perivesical inflammation. Correlation with any clini [place] evidence of a urinary tract infection/cystitis is recommended and if there are any risk factors f or bladder malignancy consider referral for cystoscopy as clinically indicated. 2. Heterogeneously enlarged uterus containing multiple masses. These are likely uterine fibroids but correlation with any history of abnormal bleeding is recommended with referral to gynecology if there is any clinical concern for malignancy. 3. Additional chronic/incidental findings as described above. Report Dictated By: Gaudencio Kolb MD at 10/28/2018 2:40 PM Report E-Signed By: Gaudencio Kolb MD at 10/28/2018 2:51 PM WSN:[id number]
[2018-10-28 18:29] VITALS: BP 138/108
[2018-10-28] MEDS ORDERED: MELATONIN 3 MG TAB PO PRN (18:55)
[2018-10-28] MEDS ORDERED: ACETAMINOPHEN 325 MG TAB PO PRN (18:55)
[2018-10-28] MEDS ORDERED: NS(*) 0.9% 1000 ML BAG 1,000 ML IV PRN (18:55)
[2018-10-28] MEDS ORDERED: FLUSH 10 ML SYR IVP PRN (18:55)
--- NOTE | 2018-10-28 19:19 | History & Physical ---
History of Present Illness Chief Complaint "My daughter thinks I can't take care of myself" History of Present Illness 73yo female with PMHx significant for chronic a-fib, CAD, recurrent/persistent UTI, chronic pain, multiple spine surgeries, CRF, systolic heart failure. She was recently discharged to [facility] following an acute illness. She states she discharged herself back to her home "because I couldn't stand the place". At the present time, the patient reports chronic urinary incontinence, generalized weakness, right flank pain. She denies any fevers or chills. She denies any dysuria or hematuria. She states "I always have an infection" referring to UTI. The patient reports her daughter doesn't think she takes her medications correctly and is unable to care for herself. She was evaluated in the ER and found to have ongoing/recurrent pyuria. Her CT scan shows possible bladder wall inflammation (vs. malignancy). She was also reported to be rather unkempt. She was recommended for admission. History Problems: (1) GI bleed Status: Resolved (2) Anemia Status: Chronic (3) UTI (lower urinary tract infection) Status: Chronic (4) HTN (hypertension) Status: Chronic (5) Ribs, multiple fractures Status: Resolved (6) Urinary incontinence Status: Chronic (7) CAD (coronary artery disease) Status: Chronic (8) CHRONIC ATRIAL FIBRILLATION Status: Chronic (9) Essential hypertension Status: Chronic (10) Hypogammaglobulinemia Status: Chronic (11) Type II diabetes mellitus Status: Chronic (12) CKD (chronic kidney disease) stage 3, GFR 30-59 ml/min Status: Chronic (13) Follicular non-Hodgkin's lymphoma Status: Chronic (14) Hx of cataract extraction Status: Chronic (15) Hx of tonsillectomy Status: Chronic (16) Hx of lumbosacral spine surgery Status: Chronic (17) Hx of CABG Status: Chronic (18) Heart failure with reduced ejection fraction Status: Chronic Home Meds Active Scripts Digoxin (Digox) 125 Mcg Tablet, 0.125 MG PO QDAY, #30 TAB Prov:MARIAJOSE RODARTE [facility] 09/11/18 Carvedilol (CARVEDILOL) 25 Mg Tablet, 25 MG PO BID, #60 TAB Prov:MARIAJOSE RODARTE [facility] 09/11/18 Gabapentin (GABAPENTIN) 300 Mg Capsule, 300 MG PO BID, #60 CAPSULE Prov:MARIAJOSE RODARTE [facility] 07/18/18 Tramadol Hcl (TRAMADOL HCL) 50 Mg Tablet, 50 MG PO Q6H PRN for PAIN, #60 TAB Prov:MARIAJOSE RODARTE [employer] 07/18/18 Mirabegron (MYRBETRIQ) 50 Mg Tab.er.24h, 50 MG PO DAILY for overactive bladder for 30 Days, #30 CAP 3 Refills Prov:MACHELLE ISBELL MD 06/18/18 Reported Medications Nitrofurantoin Monohyd/M-Cryst (NITROFURANTOIN MONO-MCR 100 MG) 100 Mg Capsule, 100 MG PO DAILY for UTI prophylaxis, #30 CAPSULE 09/10/18 Vitamins A and D (Sween Cream) 85 Gm Cream..g., TOP QDAY PRN for ITCHING 09/09/18 Rivaroxaban 15 Mg (XARELTO 15 MG) 15 Mg Tablet, 15 MG PO QDAY, TAB 09/09/18 Glucosamine Sulfate 2KCL (GLUCOSAMINE) 1,000 Mg Tablet, 1000 MG PO BID 09/09/18 Insulin Lispro 100 Un/Ml Pen (HUMALOG 3 ML PEN) 100 Unit/1 Ml Insuln.pen, 100 UNIT SQ DIRECTED, DIS.SYR 09/08/18 Acetaminophen (TYLENOL) 325 Mg Tablet, 650 MG PO Q6H PRN for PAIN, TAB 09/08/18 Potassium Chloride (POTASSIUM CHLORIDE) 10 Meq Capsule.er, 10 MEQ PO DAILY 09/08/18 Bupropion HCl (Bupropion HCl ER) 200 Mg Tablet.er, 150 MG PO BID 09/08/18 Furosemide (LASIX) 40 Mg Tablet, 1 TAB PO DAILY, TAB 09/07/18 Melatonin (MELATONIN) 3 Mg Tablet, 3 MG PO HS 08/02/18 Atorvastatin Calcium (ATORVASTATIN CALCIUM) 20 Mg Tablet, 1 TAB PO QDAY, TAB 07/06/18 Oxygen (OXYGEN) Inha, 3 L INH, L 06/18/17 Lysine (LYSINE) 500 Mg Tablet, 500 MG PO BID 04/27/16 Cranberry Extract (CRANBERRY) 200 Mg Capsule, 200 MG PO BID, CAPSULE 11/11/14 Multivitamin (MULTI VITAMIN DAILY) 1 Each Tablet, 1 EACH PO QDAY 04/14/14 Nph, Human Insulin Isophane (HUMULIN N) 100 Unit/1 Ml Vial, 40 UNIT SQ QAM 03/04/12 Allergies: Coded Allergies: ketorolac (Verified Allergy, Severe, COULD NOT SEE, N&V, THOUGHT SHE WAS GOING TO , 10/28/18) ibuprofen (Verified Adverse Reaction, Unknown, DIZZINESS, NAUSEA, VOMITING, 10/28/18) Patient History: UTI (urinary tract infection) MOTHER (CKD), Hx Smoking: No Smoking Status: Never Smoker Exposure to Second Hand Smoke?: Yes (daugher smokes) Caffeine Intake: Soda Caffeine/Cups Per Day: Diet Pepsi Hx Alcohol Use: No Hx Substance Use Disorder: No Social Drug Use: Never Review of Systems Constitutional: No Fever, No Chills Neurological: Weakness Cardiovascular: No Chest Pain, No Palpitations Respiratory: No Shortness of Breath Genitourinary: Urinary Incontinence Musculoskeletal: Pain Exam Vital Signs Vital Signs Date Time Temp Pulse Resp B/P (MAP) Pulse Ox O2 Delivery O2 Flow Rate FiO2 10/28/18 18:29 97.5 123 14 138/108 (118) 99 Nasal Cannula 3.0 General Appearance: Alert, Awake Neuro: No Gross deficits, Other (generalized weakness all groups) Eyes: PERRLA ENT: Oropharynx Clear Neck: No Masses Cardiovascular: Other (Irregular distant tones with systolic murmur) Respiratory: Clear to Auscultation Chest: No Tenderness GI: Other (Soft/some tenderness reported on palpation of RUQ/righty flank/no guarding or rebound/BS present) : Other (perineal area with mild erythema) Extremities: Warm, Perfused Integumentary: Generalized Fragile Skin Medical Decision Making Data Points Result Diagram: 10/28/18 1254 10/28/18 1254 Item Value Date Time White Blood Count 9.3 k/uL 02/07/17 1450 Hemoglobin 10.5 g/dL L 02/07/17 1450 Hematocrit 32.2 % L 02/07/17 1450 Platelet Count 262 K/uL 02/07/17 1450 Sodium Level 131 mmol/L L 02/07/17 1450 Potassium Level 5.9 mmol/L H 02/07/17 1450 Chloride Level 104 mmol/L 02/07/17 1450 Carbon Dioxide Level 16 mmol/L L 02/07/17 1450 Blood Urea Nitrogen 62 mg/dl H 02/07/17 1450 Creatinine 3.50 mg/dl H 02/07/17 1450 Glomerular Filtration Rate Calc 12.8 02/07/17 1450 Random Glucose 169 mg/dl H 02/07/17 1450 Calcium Level 10.1 mg/dl 02/07/17 1450 Total Bilirubin 0.5 mg/dl 02/07/17 1450 Aspartate Amino Transf (AST/SGOT) 10 U/L 02/07/17 1450 Alanine Aminotransferase (ALT/SGPT) 23 U/L 02/07/17 1450 Alkaline Phosphatase 68 U/L 02/07/17 1450 Total Protein 5.8 gm/dl L 02/07/17 1450 Albumin 3.9 g/dl 02/07/17 1450 Troponin I < 0.012 ng/ml 02/07/17 1721 B-Type Natriuretic Peptide 439 pg/ml H 02/07/17 1721 B-Type Natriuretic Peptide 521 pg/ml H 02/07/17 1450 Albumin 3.6 g/dl 02/09/17 0520 Total Protein 5.5 gm/dl L 02/09/17 0520 Alkaline Phosphatase 65 U/L 02/09/17 0520 Alanine Aminotransferase (ALT/SGPT) 33 U/L 02/09/17 0520 Aspartate Amino Transf (AST/SGOT) 19 U/L 02/09/17 0520 Total Bilirubin 0.6 mg/dl 02/09/17 0520 Calcium Level 9.6 mg/dl 02/09/17 0520 Random Glucose 93 mg/dl 02/09/17 0520 Creatinine 2.10 mg/dl H 02/09/17 0520 Blood Urea Nitrogen 41 mg/dl H 02/09/17 0520 Carbon Dioxide Level 17 mmol/L L 02/09/17 0520 Chloride Level 114 mmol/L H 02/09/17 0520 Potassium Level 5.3 mmol/L H 02/09/17 0520 Sodium Level 139 mmol/L 02/09/17 0520 Digoxin Level 1.0 ng/ml 02/14/17 0513 Digoxin Level 1.4 ng/ml 02/11/17 0458 Stool Occult Blood (IFOB) Positive H 02/11/17 1130 Immunoglobulin G1 175 mg/dL L 02/07/17 1450 Immunoglobulin G2 132 mg/dL 02/07/17 1450 Immunoglobulin G3 34 mg/dL 02/07/17 1450 Immunoglobulin G4 <1 mg/dL L 02/07/17 1450 Urine Color Red 02/08/17 0000 Urine Clarity Cloudy 02/08/17 0000 Urine Mucus None /HPF 02/08/17 0000 Urine Bacteria Negative /HPF 02/08/17 0000 Urine Squamous Epithelial Cells Many /LPF H 02/08/17 0000 Urine WBC None /HPF 02/08/17 0000 Urine RBC 668 /HPF 02/08/17 0000 Urine Leukocyte Esterase Trace H 02/08/17 0000 Urine Urobilinogen Negative mg/dL 02/08/17 0000 Urine Bilirubin Negative 02/08/17 0000 Urine Nitrite Positive H 02/08/17 0000 Urine Blood Moderate 02/08/17 0000 Urine Ketones Negative mg/dL 02/08/17 0000 Urine Glucose (UA) 50 mg/dL H 02/08/17 0000 Urine Protein 100 mg/dL 02/08/17 0000 Urine Specific [place] 1.012 02/08/17 0000 Urine pH 5.0 pH 02/08/17 0000 Prothrombin Time 21.7 seconds H 02/07/17 1721 Prothromb Time International Ratio 1.84 02/07/17 1721 Activated Partial Thromboplast Time 35 seconds 02/07/17 1721 Prothromb Time International Ratio 1.96 02/07/17 1450 Prothrombin Time 22.9 seconds H 02/07/17 1450 Lipase 104 U/L 10/28/18 1254 Amylase Level 44 U/L 10/28/18 1254 Albumin 3.6 g/dl 10/28/18 1254 Total Protein 6.1 g/dl L 10/28/18 1254 C-Reactive Protein 0.5 mg/dl 10/28/18 1254 Alanine Aminotransferase (ALT/SGPT) 36 U/L 10/28/18 1254 Aspartate Amino Transf (AST/SGOT) 33 U/L 10/28/18 1254 Alkaline Phosphatase 100 U/L 10/28/18 1254 Total Bilirubin 0.6 mg/dl 10/28/18 1254 Calcium Level 9.9 mg/dl 10/28/18 1254 Troponin I 0.082 ng/ml 10/28/18 1254 Troponin I 0.082 ng/ml 10/28/18 1523 B-Type Natriuretic Peptide 734 pg/ml H 10/28/18 1523 Activated Partial Thromboplast Time 26 seconds 10/28/18 1254 Prothromb Time International Ratio 1.04 10/28/18 1254 Prothrombin Time 13.6 seconds 10/28/18 1254 Urine Mucus None /HPF 10/28/18 1310 Urine Bacteria Many /HPF H 10/28/18 1310 Urine Squamous Epithelial Cells Moderate /LPF H 10/28/18 1310 Urine WBC Clumps Many /HPF 10/28/18 1310 Urine WBC 1431 /HPF 10/28/18 1310 Urine RBC 25 /HPF 10/28/18 1310 Urine Leukocyte Esterase Large H 10/28/18 1310 Urine Urobilinogen Negative mg/dL 10/28/18 1310 Urine Bilirubin Negative 10/28/18 1310 Urine Nitrite Positive H 10/28/18 1310 Urine Blood Moderate 10/28/18 1310 Urine Ketones Negative mg/dL 10/28/18 1310 Urine Glucose (UA) 500 mg/dL 10/28/18 1310 Urine Protein 100 mg/dL 10/28/18 1310 Urine Specific [place] 1.023 10/28/18 1310 Urine pH 6.0 pH 10/28/18 1310 Urine Clarity Turbid 10/28/18 1310 Urine Color Yellow 10/28/18 1310 Influenza Virus Type A (PCR) Negative 10/28/18 1541 Influenza Virus Type B (PCR) Negative 10/28/18 1541 Acetone, Qualitative Negative 10/28/18 0000 EKG / Imaging EKG Interpretation PATIENT NAME: ELENA ROD : [id number] MR: [id number] V: [id number] EXAM DATE: ORDERING PHYSICIAN: DAVID MAYERS TECHNOLOGIST: GINETTE Test Reason : DISORIENTED Blood Pressure : / mmHG Vent. Rate : 117 BPM Atrial Rate : 136 BPM P-R Int : 000 ms QRS Dur : 096 ms QT Int : 264 ms P-R-T Axes : 000 110 -84 degrees QTc Int : 368 ms Atrial fibrillation Nonspecific interventricular conduction delay ST and T wave abnormality, consider inferolateral ischemia Abnormal ECG Confirmed by RAMIN THURMAN ([id number]) on 10/28/2018 2:56:58 PM Referred By: DAVID Confirmed By:RAMIN THURMAN Imaging PATIENT NAME: Elena Rod : 1945 MR: [id number] V: [id number] EXAM DATE: ORDERING PHYSICIAN: DAVID MAYERS TECHNOLOGIST: Location: [facility] [place] Patient: Elena Rod : 1945 Visit/Account:[id number] Date of Sevice: 10/28/2018 EXAMINATION: CT ABDOMEN AND PELVIS WITHOUT CONTRAST COMPARISON: 08/02/2018 and earlier. HISTORY: Abdomen pain for one day. PROCEDURE: Multiplanar noncontrast CT of the abdomen and pelvis. One of the following dose optimization techniques was utilized in the performance of this exam: Automated exposure control; adjustment of the mA and/or kV according to the patient's size; or use of an iterative reconstruction technique. Specific details can be referenced in the facility's radiology CT exam operational policy . FINDINGS: Evaluation of the solid and viscus parenchymal organs and vascular structures is limited without the benefit of IV contrast. Visualized thorax: Chronic small left pleural effusion. Chronic cardiac chamber enlargement. Coronary calcifications. Lung base volume loss versus scarring. Sm all hiatal hernia. Liver: Noncontrast imaging of the visualized liver is within normal limits. Gallbladder and biliary system: Cholelithiasis. Or definite pericholecystic inflammation. No bile duct dilation. Spleen: Negative. Pancreas: Noncontrast imaging of the pancreas is within normal limits. Adrenal glands: Unchanged mild nonfocal adrenal gland thickening suggestive of hyperplasia. No discrete nodule. Kidneys and bladder: No renal mass or hydronephrosis. Extensive vascular calcif ications bilaterally but no definite radiopaque urolithiasis. Urinary bladder wall mild irregular thickening and perivesical inflammation. Vessels: Advanced aortoiliac and mesenteric atherosclerosis. No abdominal aortic aneurysm. Bowel and mesentery: Small hiatal hernia. No gastric distention. No small bowel obstruction. Appendix is unremarkable. Minimal stool in the colon. Sigmoid moderate diverticulosis. No bowel or mesenteric inflammation. Pelvic organs: Heterogeneously enlarged uterus containing multiple masses. Lymph nodes: No adenopathy. Free air/free fluid: None. Abdominal wall and osseous structures: Small fat-containing inguinal hernias bilaterally. Demineralization with lumbar spine multilevel advanced degenerative disc disease. At least moderate canal stenosis at L3-L4. L4-L5 posterior decompression. No acute findings. IMPRESSION: 1. Urinary bladder wall irregular thickening and perivesical inflammation. Correlation with any clinical evidence of a urinary tract infection/cystitis is recommended and if there are any risk factors for bladder malignancy consider referral for cystoscopy as clinically indicated. 2. Heterogeneously enlarged uterus containing multiple masses. These are likely uterine fibroids but correlation with any history of abnormal bleeding is recommended with referral to gynecology if there is any clinical concern for malignancy. 3. Additional chronic/incidental findings as described above. Report Dictated By: Gaudencio Kolb MD at 10/28/2018 2:40 PM Report E-Signed By: Gaudencio Kolb MD at 10/28/2018 2:51 PM [id number] Assessment and Plan Problems: (1) Urinary tract infection Status: Acute Assessment & Plan: It appears she has ongoing/recurrent UTI. She has significant pyuria and incontinence. CT scan also shows potential inflammatory changes in bladder wall. Will place on IV Rocephin. She had cultures done in ER. May need to have Urology see her as well. (2) Type II diabetes mellitus Status: Chronic Assessment & Plan: Will continue her NPH, ADA diet, monitor glucoses and use SSI as needed. (3) HTN (hypertension) Status: Chronic Assessment & Plan: Will continue her carvedilol. Monitor BPs. (4) CAD (coronary artery disease) Status: Chronic Assessment & Plan: Will continue her beta rishi and statin. (5) CKD (chronic kidney disease) stage 3, GFR 30-59 ml/min Status: Chronic Assessment & Plan: Her creatinine is 1.7 today, which is slightly higher than her baseline (~1.5). Will give gentle IV fluids and watch labs. (6) CHRONIC ATRIAL FIBRILLATION Status: Chronic Assessment & Plan: She has been managed with carvedilol and digoxin for rate control and Xarelto for CVA prophylaxis. Will check digoxin level. Continue same regimen for now. (7) Heart failure with reduced ejection fraction Status: Chronic Assessment & Plan: She has been on carvedilol and furosemide. Will hold the diuretic for now due to slight increase in creatinine. Watch daily weights, I/Os. Copies to: KARIN MELENDEZ DO; MACHELLE ISBELL MD ; Venous Thromboembolism Antithrombotics Is Pt On Any Antithrombotics?: Yes Exam Sepsis Risk: No Definite Risk RAMIN THURMAN MD Oct 28, 2018 19:19
[2018-10-28] MEDS ORDERED: DILT120C28 PO (19:51)
[2018-10-28] MEDS: cefTRIAXone(*) 1 GM VIAL 1 GM in NS(*) 0.9% 100 ML ADDVANT BAG 100 ML IVPB SCH (20:05)
[2018-10-28] MEDS: CARVEDILOL 25 MG TABLET PO SCH (20:05)
[2018-10-28 20:30] VITALS: BP 148/112
[2018-10-28] MEDS ORDERED: DIGOXIN 0.5 MG/2 ML AMP IVP ONE (20:40)
[2018-10-28] MEDS: GABAPENTIN 300 MG CAP PO SCH (20:49)
[2018-10-28 21:10] VITALS: BP 144/111
[2018-10-28] MEDS: INSULIN HUM LISPRO 100 UN/ML 3 ML VIAL SUBQ PRN (21:21)
[2018-10-28] MEDS: NYSTATIN 100,000 U/GM PWD 15GM TP SCH (21:21)
[2018-10-28 22:00] VITALS: BP 179/100
[2018-10-28 23:07] VITALS: BP 177/103
[2018-10-29] VITALS (7 sets, daily range): BP systolic 147–194; BP diastolic 72–107; Ht 170.2 cm; Wt 70.3 kg
[2018-10-29 06:22] LABS: PLATELET COUNT, AUTOMATED 264 K/uL (150-450)
[2018-10-29] MEDS: INSULIN HUM ISO(NPH) 100 UN/ML 3 ML VIAL SUBQ SCH ×2 (07:37→16:31)
[2018-10-29] MEDS ORDERED: INSULIN HUM ISO(NPH) 100 UN/ML 3 ML VIAL SUBQ SCH (08:00)
[2018-10-29] MEDS: CARVEDILOL 25 MG TABLET PO SCH ×2 (10:12→21:39)
[2018-10-29] MEDS: ACETAMINOPHEN 325 MG TAB PO PRN (10:12)
[2018-10-29] MEDS: GABAPENTIN 300 MG CAP PO SCH ×2 (10:12→21:39)
[2018-10-29] MEDS: DIGOXIN 0.125 MG TAB PO SCH (10:12)
[2018-10-29] MEDS: RIVAROXABAN 10 MG TAB PO SCH (10:13)
[2018-10-29] MEDS: NYSTATIN 100,000 U/GM PWD 15GM TP SCH ×2 (10:13→21:39)
[2018-10-29] MEDS: INSULIN HUM LISPRO 100 UN/ML 3 ML VIAL SUBQ PRN ×3 (12:13→21:40)
--- NOTE | 2018-10-29 14:25 | Hospitalist Progress Note ---
Subjective Progress Notes Subjective She reports no nausea or pain. She slept well. Physical Exam Vital Signs Date Time Temp Pulse Resp B/P (MAP) Pulse Ox O2 Delivery O2 Flow Rate FiO2 10/29/18 11:08 98.4 79 174/92 (119) 95 Nasal Cannula 1.0 10/29/18 07:32 20 Intake and Output0 10/29/18 07:00 Intake Total 1800 ml Output Total 400 ml Balance 1400 ml Intake Oral 200 ml IV Total 1600 ml Output Urine Total 400 ml # Voids 1 General Appearance: Alert, Awake, No Acute Distress GI: Other (Soft, non-distended. Suprapubic pain with deep palpation.) Extremities: No Edema Result Diagram: 10/29/1855710/29/18557 Assessment and Plan Problems: (1) Urinary tract infection Status: Acute Assessment & Plan: It appears she has ongoing/recurrent UTI. She has significant pyuria and incontinence. Afebrile and normal WBC. CT scan also shows potential inflammatory changes in bladder wall. Will place on IV Rocephin. She had cultures done in ER. May need to have Urology see her as well. (2) Failure to thrive Status: Acute Assessment & Plan: She was at the [facility], but checked herself out. Since being home she is reportedly not compliant with her medications, unkempt, and having difficulty with ADL's secondary to weakness. OT/PT to see. (3) CHRONIC ATRIAL FIBRILLATION Status: Chronic Assessment & Plan: She has been managed with carvedilol and digoxin for rate control and Xarelto for CVA prophylaxis. Digoxin level is not high. Better rate control today. (4) CKD (chronic kidney disease) stage 3, GFR 30-59 ml/min Status: Chronic Assessment & Plan: Her creatinine is 1.7 on admission, which is slightly higher than her baseline (~1.5). Today she is 1.4. Saline lock and follow. (5) Type II diabetes mellitus Status: Chronic Assessment & Plan: Will continue her NPH, ADA diet, monitor glucoses and use SSI as needed. (6) HTN (hypertension) Status: Chronic Assessment & Plan: Elevated, but likely some non-compliance as an outpatient. Will continue her carvedilol. Monitor BPs. (7) CAD (coronary artery disease) Status: Chronic Assessment & Plan: Will continue her beta rishi and statin. (8) Heart failure with reduced ejection fraction Status: Chronic Assessment & Plan: She has been on carvedilol and furosemide. Will hold the d iuretic for now due to slight increase in creatinine. Watch daily weights, I/Os. Exam Sepsis Risk: No Definite Risk Problem Qualifiers (1) Failure to thrive: Failure to thrive age range: in adult Qualified Codes: R62.7 - Adult failure to thrive UMM APONTE MD Oct 29, 2018 14:25
--- NOTE | 2018-10-29 14:36 | Medical Nutrition Therapy ---
Nutrition Anthropometrics Height (Inches): 67.00 Height (Calculated Centimeters: 170.718968 Weight (Pounds): 146 Weight (Calculated Kilograms): 66.451 BMI: 22.9 Arnoldo Nutrition Score: Adequate Arnoldo Nutrition Risk Score: 19 Dietary Referral Nutrition Risk Factors: Special Diet Nutrition Risk Comment: Physical Findings Physical Appearance: Skin Appearance Skin Appearance: Edema Edema Location Modifier: Edema Location: Type of Edema: Degree of Edema: Gastrointestinal Symptoms GI Symtoms: Tube Present: Bowel Sounds: Recent Bowel Pattern: Stool Characteristics: Nutritional Diagnosis Nutritional Risk Acuity 2: CHF w/Complication, Chronic Renal Failure, Blood Glucose > 300mg/dl Nutritional Risk Acuity 3: Fair Appetite Past Medical History: CAD, HTN, T2DM, CKD-3, non-Hodkins lymphoma, CHF, chronic edema, chronic UTI, hypercholesteremia, urinary incontinence, chronic renal disease, pulmonary nodule, GI bleed, anemia, ribs (multiple fractures), hypogammagloblinemia, lumbosacral spinal surgery, tonsillectomy, and cataract extraction and CABG. Nutritional Acuity: 2-Moderate Nutrition Diagnosis: Inappropriate Carb Intake Nutrition Etiology: Inability Manage SelfCare Nutrition Problem/Etiology/Sym: Inappropriate carb intake related to inability to manage selfcare as evidenced by elevated glucose leves (WBG = 263-372, RBG = 149) and pt's daughter reported that she does not take her medications regularly. Energy Requirement: 1581 (MSJ, 1.1 TEF, 1.2 AF) Protein Requirement: 66 (1g AA/kg of BW) Fluid Requirement: 1581 (1cc/kcal) Diet Type: Diabetic Nutrition Intervention: Cont diet as ordered, Check glucose Nutrition Monitoring & Eval Nutrition Goals: Eat 50-100% Meal RD Patient Assessment Time: [address] Assessment Type: RD Assessment Patient Nutrition Acuity: 2-Moderate Follow Up Date: Nov 01, 2018 Nutritional Comment: 10/29: Pt admitted for chronic UTI, generalized weakness, and right flank pain. Pt has a hx of CAD, HTN, T2DM, CKD-3, non-Hodkins lymphoma, CHF, chronic edema, chronic UTI, hypercholesteremia, urinary incontinence, chronic renal disease, pulmonary nodule, GI bleed, anemia, ribs (multiple fractures), hypogammagloblinemia, lumbosacral spinal surgery, tonsillectomy, and cataract extraction and CABG.Pt has elevated BUN (20), AST (42), creatinine (1.4), WBG (263-372), and RBG (149. Pt has decresed albumin (2.8). Pt is currently taking rivaroxaban (anti-coagulant). Pt is on a diabetic diet with no currently intake charted. -EUNICE MATTHEWS Oct 29, 2018 11:57
--- NOTE | 2018-10-29 15:38 | NUR ---
Physical Therapy Impression PT eval complete. Pt declined functional mobility at this time. Pt states this this PT, "I just want to go home and ." and "If I want to lay around and sleep all day, I should be able to do that." Notified DC planning of Pt's comments. PT to follow as Pt is willing to participate. Physical Therapy Goals 1. Mod I bed mobility. 2. SBA transfers. 3. SBA gait x 50' with RW. 4. Ascend/descend 2 stairs SBA. Patient's Goals
[2018-10-29] MEDS: amLODIPine BESYL(*) 5 MG TAB PO SCH (15:53)
[2018-10-29] MEDS: cefTRIAXone(*) 1 GM VIAL 1 GM in NS(*) 0.9% 100 ML ADDVANT BAG 100 ML IVPB SCH (20:20)
[2018-10-30 03:30] VITALS: BP 156/101
[2018-10-30] MEDS: GABAPENTIN 300 MG CAP PO SCH ×2 (09:33→20:38)
[2018-10-30] MEDS: DIGOXIN 0.125 MG TAB PO SCH (09:33)
[2018-10-30] MEDS: CARVEDILOL 25 MG TABLET PO SCH ×2 (09:33→20:38)
[2018-10-30] MEDS: INSULIN HUM ISO(NPH) 100 UN/ML 3 ML VIAL SUBQ SCH ×2 (09:34→16:52)
[2018-10-30] MEDS: RIVAROXABAN 10 MG TAB PO SCH (09:34)
[2018-10-30] MEDS: NYSTATIN 100,000 U/GM PWD 15GM TP SCH ×2 (09:34→20:38)
[2018-10-30] MEDS: amLODIPine BESYL(*) 5 MG TAB PO SCH (09:34)
--- NOTE | 2018-10-30 11:28 | Hospitalist Progress Note ---
Subjective Progress Notes Subjective This patient was admitted for a suspected UTI. She had no acute events overnight. Patient Complains of: Cardiovascular: No: Chest Pain Respiratory: No: Shortness of Breath Physical Exam Vital Signs Date Time Temp Pulse Resp B/P (MAP) Pulse Ox O2 Delivery O2 Flow Rate FiO2 10/30/18 09:33 91 10/30/18 03:40 86 10/30/18 03:30 97.6 16 156/101 (119) Nasal Cannula 1.0 Intake and Output 10/30/18 07:00 Intake Total 1598 ml Output Total 1250 ml Balance 348 ml Intake Oral 1498 ml IV Total 100 ml Output Urine Total 1250 ml # Bowel Movements 2 Cardiovascular: Regular Rate and Rhythm Respiratory: Clear to Auscultation GI: Soft and Non-Tender Result Diagram: 10/29/18 0558 10/30/18 0542 Assessment and Plan Problems: (1) Urinary tract infection Status: Acute Assessment & Plan: Her urine culture was positive for E. coli. Her CT scan showed bladder wall thickening that was thought to be concerning for infection. She is on empiric treatment with ceftriaxone. She is on chronic Macrodantin for suppressive therapy. (2) Failure to thrive Status: Acute Assessment & Plan: She was at the [facility], but checked herself out. Since being h ome she is reportedly not compliant with her medications, unkempt, and having difficulty with ADL's secondary to weakness. Therapy and discharge planning consults have been ordered. (3) CHRONIC ATRIAL FIBRILLATION Status: Chronic Assessment & Plan: She has been managed with carvedilol and digoxin for rate control and Xarelto for CVA prophylaxis. (4) CKD (chronic kidney disease) stage 3, GFR 30-59 ml/min Status: Chronic (5) Type II diabetes mellitus Status: Chronic Assessment & Plan: She is on chronic treatment with NPH and Humalog. We currently have her on the NPH and sliding scale level #2. (6) HTN (hypertension) Status: Chronic Assessment & Plan: She is on chronic treatment with carvedilol and amlodipine was added yesterday. (7) CAD (coronary artery disease) Status: Chronic Assessment & Plan: Will continue her beta rishi and statin. (8) Heart failure with reduced ejection fraction Status: Chronic Assessment & Plan: She has been on carvedilol and furosemide. The Lasix is currently on hold. (9) Uterine fibroid Assessment & Plan: This was noted incidentally on her CT scan. Follow up with gynecology was recommended. (10) Bladder wall thickening Assessment & Plan: Radiology recommended cystoscopy to rule out malignancy. She is already established with Dr. Jara, and will need to follow up with him as an outpatient. Exam Sepsis Risk: No Definite Risk Problem Qualifiers (1) Failure to thrive: Failure to thrive age range: in adult Qualified Codes: R62.7 - Adult failure to thrive SANJU ESCALANTE DO Oct 30, 2018 11:28
[2018-10-30 11:33] VITALS: BP 184/104
[2018-10-30] MEDS: INSULIN HUM LISPRO 100 UN/ML 3 ML VIAL SUBQ PRN ×3 (12:34→21:58)
--- NOTE | 2018-10-30 12:50 | NUR ---
Occupational Therapy Impression Min A supine to sit with HOB raised. Min A stand pivot to BSC with RW. Max Ax1 toileting. Min Ax1 functional mobility x5ft with RW. Max A sit<>supine. Set-up oral care and grooming seated. Rec long-term rehab/placement. Recommend 24/7 supervision for ADLs/IADLs upon discharge. Occupational Therapy Goals 1) Pt will be Min A UB/LB dressing. 2) Pt will be Min A toilet task. 3) Pt will be Min A grooming/hygiene. Patient's Goal
[2018-10-30] MEDS: ACETAMINOPHEN 325 MG TAB PO PRN ×2 (14:43→21:57)
[2018-10-30 15:44] VITALS: BP 160/87
--- NOTE | 2018-10-30 16:51 | Antimicrobial Stewardship ---
Antimicrobial Time Out Antimicrobial Stewardship MD Service: Hospitalist Indications: UTI Antimicrobial Used Ceftriaxone 1g IVP Q24H Start Date: Oct 28, 2018 Culture Results: Yes (e. coli) Eligible for PO Conversion Eligable for PO Conversion: No Reviewed with Provider Reviewed w/ Provider on Rounds: No Comments Comments Patient with complicated UTI on chronic suppressive therapy. Started on Ceftriaxone 1g IVP Qday. Culture reports E.Coli sensitive to beta lactams. Continue treatment for 10-14 days. NIMA SILVA Oct 30, 2018 16:51
[2018-10-30] MEDS: TAMSULOSIN HCL 0.4 MG CAP PO SCH (16:53)
[2018-10-30 20:23] VITALS: BP 167/92
[2018-10-30] MEDS: cefTRIAXone(*) 1 GM VIAL 1 GM in NS(*) 0.9% 100 ML ADDVANT BAG 100 ML IVPB SCH (20:36)
[2018-10-30 23:40] VITALS: BP 148/99
[2018-10-31 02:17] VITALS: BP 143/91
[2018-10-31 07:49] VITALS: BP 157/83
[2018-10-31] MEDS: INSULIN HUM ISO(NPH) 100 UN/ML 3 ML VIAL SUBQ SCH ×2 (08:00→16:52)
[2018-10-31] MEDS: ACETAMINOPHEN 325 MG TAB PO PRN ×2 (08:20→17:55)
[2018-10-31] MEDS: TAMSULOSIN HCL 0.4 MG CAP PO SCH (09:38)
[2018-10-31] MEDS: RIVAROXABAN 10 MG TAB PO SCH (09:39)
[2018-10-31] MEDS: DIGOXIN 0.125 MG TAB PO SCH (09:39)
[2018-10-31] MEDS: GABAPENTIN 300 MG CAP PO SCH ×2 (09:39→20:46)
[2018-10-31] MEDS: amLODIPine BESYL(*) 5 MG TAB PO SCH (09:39)
[2018-10-31] MEDS: NYSTATIN 100,000 U/GM PWD 15GM TP SCH ×2 (09:40→20:46)
[2018-10-31] MEDS: CARVEDILOL 25 MG TABLET PO SCH ×2 (09:40→20:46)
--- NOTE | 2018-10-31 11:39 | Hospitalist Progress Note ---
Subjective Progress Notes Subjective Still weak. She has been eating/drinking. No fever. Physical Exam Vital Signs Date Time Temp Pulse Resp B/P (MAP) Pulse Ox O2 Delivery O2 Flow Rate FiO2 10/31/18 09:39 78 10/31/18 07:49 98.2 16 157/83 (107) 96 High-Flow Nasal Cannula 1.0 Intake and Output 10/31/18 07:00 Intake Total 1200 ml Output Total 1300 ml Balance -100 ml Intake Oral 1200 ml Output Urine Total 1300 ml General Appearance: Alert, Awake Neuro: Other (generalized weakness) Cardiovascular: Other (Distant tones irregular with systolic murmur) Respiratory: Other (essentially clear) GI: Soft and Non-Tender Extremities: Warm, Perfused Result Diagram: 10/29/18 0558 10/30/18 0542 Assessment and Plan Problems: (1) Urinary tract infection Status: Acute Assessment & Plan: Her urine culture was positive for E. coli. Her CT scan showed bladder wall thickening that was thought to be concerning for infection. She is on empiric treatment with IV ceftriaxone. She has been on chronic Macrodantin for suppressive therapy. (2) Failure to thrive Status: Acute Assessment & Plan: She was at the [facility], but checked herself out. Since being home she is reportedly not compliant with her medications, unkempt, and having difficulty with ADL's secondary to weakness. Therapy and discharge planning consults have been ordered. (3) CHRONIC ATRIAL FIBRILLATION Status: Chronic Assessment & Plan: She has been managed with carvedilol and digoxin for rate control and Xarelto for CVA prophylaxis. (4) CKD (chronic kidney disease) stage 3, GFR 30-59 ml/min Status: Chronic (5) Type II diabetes mellitus Status: Chronic Assessment & Plan: She is on chronic treatment with NPH and Humalog. We currently have her on the NPH and sliding scale level #2. (6) HTN (hypertension) Status: Chronic Assessment & Plan: She is on chronic treatment with carvedilol and amlodipine was added yesterday. (7) CAD (coronary artery disease) Status: Chronic Assessment & Plan: Will continue her beta rishi and statin. (8) Heart failure with reduced ejection fraction Status: Chronic Assessment & Plan: She has been on carvedilol and furosemide. The Lasix is currently on hold. (9) Uterine fibroid Assessment & Plan: This was noted incidentally on her CT scan. Follow up with gynecology was recommended. (10) Bladder wall thickening Assessment & Plan: Radiology recommended cystoscopy to rule out malignancy. She is already established with Dr. Jara, and will need to follow up with him as an outpatient. Exam Sepsis Risk: No Definite Risk Problem Qualifiers (1) Failure to thrive: Failure to thrive age range: in adult Qualified Codes: R62.7 - Adult failure to thrive RAMIN THURMAN MD Oct 31, 2018 11:39
[2018-10-31 12:25] VITALS: BP 152/77
[2018-10-31] MEDS: INSULIN HUM LISPRO 100 UN/ML 3 ML VIAL SUBQ PRN ×3 (12:25→20:48)
--- NOTE | 2018-10-31 12:28 | NUR ---
Occupational Therapy Impression Pt completing sit<>stands x5 with Min-Mod A. Difficulty maintaining ALON for ambulation, rapidly sitting back down x5 times. Pt then able to ambulate x10ft, x15ft, x10ft, x5ft with RW. SpO2 WNL on 1.5L. Declined further ADLs. Seated up in chair for lunch at end of tx. Rec 12/03 supervision upon discharge. Occupational Therapy Goals 1) Pt will be Min A UB/LB dressing. 2) Pt will be Min A toilet task. 3) Pt will be Min A grooming/hygiene. Patient's Goal
[2018-10-31 16:48] VITALS: BP 157/55
[2018-10-31 19:42] VITALS: BP 157/78
[2018-10-31] MEDS: cefTRIAXone(*) 1 GM VIAL 1 GM in NS(*) 0.9% 100 ML ADDVANT BAG 100 ML IVPB SCH (20:39)
[2018-10-31] MEDS ORDERED: NS(*) 0.9% 250 ML BAG 250 ML ONE (20:40)
[2018-10-31 22:35] VITALS: BP 165/73
[2018-11-01 03:52] VITALS: BP 167/79
[2018-11-01 07:30] VITALS: BP 173/93
[2018-11-01] MEDS: INSULIN HUM ISO(NPH) 100 UN/ML 3 ML VIAL SUBQ SCH ×2 (07:36→17:14)
[2018-11-01] MEDS: INSULIN HUM LISPRO 100 UN/ML 3 ML VIAL SUBQ PRN ×4 (07:36→21:08)
[2018-11-01] MEDS ORDERED: amLODIPine BESYL(*) 5 MG TAB PO SCH (09:00)
[2018-11-01] MEDS: GABAPENTIN 300 MG CAP PO SCH ×2 (09:52→20:51)
[2018-11-01] MEDS: amLODIPine BESYL(*) 5 MG TAB PO SCH (09:52)
[2018-11-01] MEDS: CARVEDILOL 25 MG TABLET PO SCH ×2 (09:52→20:52)
[2018-11-01] MEDS: DIGOXIN 0.125 MG TAB PO SCH (09:52)
[2018-11-01] MEDS: TAMSULOSIN HCL 0.4 MG CAP PO SCH (09:52)
[2018-11-01] MEDS: FUROSEMIDE 40 MG TAB PO SCH (09:52)
[2018-11-01] MEDS: NYSTATIN 100,000 U/GM PWD 15GM TP SCH ×2 (09:53→20:54)
[2018-11-01] MEDS: ACETAMINOPHEN 325 MG TAB PO PRN ×2 (09:58→20:52)
--- NOTE | 2018-11-01 10:02 | Medical Nutrition Therapy ---
Nutrition Anthropometrics Height (Inches): 67.00 Height (Calculated Centimeters: 170.466116 Weight (Pounds): 148 Weight (Calculated Kilograms): 67.132 BMI: 22.9 Arnoldo Nutrition Score: Adequate Arnoldo Nutrition Risk Score: 16 Dietary Referral Nutrition Risk Factors: Special Diet Nutrition Risk Comment: Physical Findings Physical Appearance: Skin Appearance Skin Appearance: Edema Edema Location Modifier: Edema Location: Type of Edema: Degree of Edema: Gastrointestinal Symptoms GI Symtoms: Tube Present: Bowel Sounds: Recent Bowel Pattern: Stool Characteristics: Nutritional Diagnosis Nutritional Risk Acuity 2: CHF w/Complication, Chronic Renal Failure, Blood Glucose > 300mg/dl Nutritional Risk Acuity 3: Fair Appetite Past Medical History: CAD, HTN, T2DM, CKD-3, non-Hodkins lymphoma, CHF, chronic edema, chronic UTI, hypercholesteremia, urinary incontinence, chronic renal disease, pulmonary nodule, GI bleed, anemia, ribs (multiple fractures), hypogammagloblinemia, lumbosacral spinal surgery, tonsillectomy, and cataract extraction and CABG. Nutritional Acuity: 2-Moderate Nutrition Diagnosis: Inappropriate Carb Intake Nutrition Etiology: Inability Manage SelfCare Nutrition Problem/Etiology/Sym: Inappropriate carb intake related to inability to manage selfcare as evidenced by elevated glucose leves (WBG = 263-372, RBG = 149) and pt's daughter reported that she does not take her medications regularly. Energy Requirement: 1581 (MSJ, 1.1 TEF, 1.2 AF) Protein Requirement: 66 (1g AA/kg of BW) Fluid Requirement: 1581 (1cc/kcal) Diet Type: Diabetic Nutrition Intervention: Cont diet as ordered, Check glucose Nutrition Monitoring & Eval Nutrition Goals: Eat 50-100% Meal Nutrition Follow-Up: Good Intake RD Patient Assessment Time: [address] Assessment Type: RD Re-Assessment Patient Nutrition Acuity: 2-Moderate Follow Up Date: Nov 05, 2018 Nutritional Comment: 10/29: Pt admitted for chronic UTI, generalized weakness, and right flank pain. Pt has a hx of CAD, HTN, T2DM, CKD-3, non-Hodkins lymphoma, CHF, chronic edema, chronic UTI, hypercholesteremia, urinary incontinence, chronic renal disease, pulmonary nodule, GI bleed, anemia, ribs (multiple fractures), hypogammagloblinemia, lumbosacral spinal surgery, tonsillectomy, and cataract extraction and CABG.Pt has elevated BUN (20), AST (42), creatinine (1.4), WBG (263-372), and RBG (149. Pt has decresed albumin (2.8). Pt is currently taking rivaroxaban (anti-coagulant). Pt is on a diabetic diet with no currently intake charted. -SHARAD 11/01: Pt dx with UTI, urine culture showed e-coli. Pt is doing better today. Pt had elevated WBG (186-348). Pt on a diabetic diet consuming 75-100% of meals. -EUNICE MATTHEWS Nov 01, 2018 09:30
--- NOTE | 2018-11-01 13:39 | Hospitalist Progress Note ---
Subjective Progress Notes Subjective 73F admitted for UTI. CHARLIE overnight. Only concern patient has is where she will go after discharge. Patient Complains of: Gastrointestinal: No Nausea, No Vomiting Genitourinary: Hematuria Physical Exam Vital Signs Date Time Temp Pulse Resp B/P (MAP) Pulse Ox O2 Delivery O2 Flow Rate FiO2 11/01/18 11:16 67 11/01/18 07:30 92 Nasal Cannula 1.0 11/01/18 07:30 98.1 20 173/93 (119) Intake and Output 11/01/18 07:00 Intake Total 1061 ml Output Total 1250 ml Balance -189 ml Intake Oral 1061 ml Output Urine Total 1250 ml General Appearance: Alert, Awake, No Acute Distress Neuro: No Gross deficits ENT: Normal Cardiovascular: Normal Rhythm & Peripheral Pulses Respiratory: No Respiratory Distress GI: Soft and Non-Tender : Normal (+ Johnson, dark jessica urine) Extremities: Soft and Non Tender, Warm, Pulses, Perfused Result Diagram: 10/29/18 0558 10/30/18 0542 Assessment and Plan Problems: (1) Urinary tract infection Status: Acute Assessment & Plan: Her urine culture was positive for E. coli. Her CT scan showed bladder wall thickening that was thought to be related to infection. She is on empiric treatment with IV ceftriaxone. She has been on chronic Macrodantin for suppressive therapy. Dr Powell saw patient and plans to perform in office cysto to further evaluate bladder thickening, but believes likely due top infection. (2) Failure to thrive Status: Acute Assessment & Plan: She was at the [facility], but checked herself out. Since being home she is reportedly not compliant with her medications, unkempt, and having difficulty with ADL's secondary to weakness. Therapy recommend 24hour care to help with ADL. (3) CHRONIC ATRIAL FIBRILLATION Status: Chronic Assessment & Plan: She has been managed with carvedilol and digoxin for rate control and Xarelto for CVA prophylaxis. (4) CKD (chronic kidney disease) stage 3, GFR 30-59 ml/min Status: Chronic (5) Type II diabetes mellitus Status: Chronic Assessment & Plan: She is on chronic treatment with NPH and Humalog. We currently have her on the NPH and sliding scale level #2. (6) HTN (hypertension) Status: Chronic Assessment & Plan: She is on chronic treatment with carvedilol and amlodipine was added yesterday. (7) CAD (coronary artery disease) Status: Chronic Assessment & Plan: Will continue her beta rishi and statin. (8) Heart failure with reduced ejection fraction Status: Chronic Assessment & Plan: She has been on carvedilol and furosemide. The Lasix is currently on hold. (9) Uterine fibroid Assessment & Plan: This was noted incidentally on her CT scan. Follow up with gynecology was recommended. (10) Bladder wall thickening Assessment & Plan: Radiology recommended cystoscopy to rule out malignancy. She is already established with Dr. Jara, and will need to follow up with him as an outpatient. Exam Sepsis Risk: No Definite Risk Problem Qualifiers (1) Failure to thrive: Failure to thrive age range: in adult Qualified Codes: R62.7 - Adult failure to thrive JEREMIAS SINGLETON DO Nov 01, 2018 13:39
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
--- NOTE | 2018-11-01 14:38 | NUR ---
Occupational Therapy Impression Pt alert, requiring significant encouragement to get OOB. [facility] Director (Celia) arriving during session. Min-Mod A supine to sit with HOB raised. Maximum assistance LB dressing. CGA ambulation x10ft with RW. Slow gait. Pt requesting to sit. Seated in w/c for conversation with Celia. Rec 12/03 supervision upon discharge. Occupational Therapy Goals 1) Pt will be Min A UB/LB dressing. 2) Pt will be Min A toilet task. 3) Pt will be Min A grooming/hygiene. Patient's Goal
[2018-11-01 15:01] VITALS: BP 134/82
--- NOTE | 2018-11-01 15:25 | NUR ---
Physical Therapy Impression Pt requires Mod A and use of hospital bed to elevate head of bed to transfer supine>sit. Pt able to stand from bed with CGA. Pt ambulated 10' with RW and CGA. Recommend 24 hour care at [place]. Physical Therapy Goals 1. Mod I bed mobility. 2. SBA transfers. 3. SBA gait x 50' with RW. 4. Ascend/descend 2 stairs SBA. Patient's Goals
--- NOTE | 2018-11-01 15:43 | NUR ---
Pt stated her daughter did not bring her photo ID in order to complete the power of claims attorney form. She stated she was unsure if she was going to discharge over the weekend and did not want to keep the power of claims attorney document, but would rather meet up with SW at another time to complete it. Pt did complete the Medicaid authorized loan representative form and SW submitted this via email.
[2018-11-01 19:05] VITALS: BP 166/78
[2018-11-01] MEDS: cefTRIAXone(*) 1 GM VIAL 1 GM in NS(*) 0.9% 100 ML ADDVANT BAG 100 ML IVPB SCH (20:45)
[2018-11-02 00:13] VITALS: BP 157/70
[2018-11-02 03:51] VITALS: BP 158/80
[2018-11-02 07:13] VITALS: BP 177/87
[2018-11-02] MEDS: GABAPENTIN 300 MG CAP PO SCH ×2 (08:30→20:38)
[2018-11-02] MEDS: ACETAMINOPHEN 325 MG TAB PO PRN ×2 (08:30→15:04)
[2018-11-02] MEDS: NYSTATIN 100,000 U/GM PWD 15GM TP SCH ×2 (08:30→20:38)
[2018-11-02] MEDS: FUROSEMIDE 40 MG TAB PO SCH (08:30)
[2018-11-02] MEDS: CARVEDILOL 25 MG TABLET PO SCH ×2 (08:30→20:38)
[2018-11-02] MEDS: TAMSULOSIN HCL 0.4 MG CAP PO SCH (08:30)
[2018-11-02] MEDS: INSULIN HUM ISO(NPH) 100 UN/ML 3 ML VIAL SUBQ SCH ×2 (08:30→19:20)
[2018-11-02] MEDS: amLODIPine BESYL(*) 5 MG TAB PO SCH (08:30)
[2018-11-02] MEDS: DIGOXIN 0.125 MG TAB PO SCH (08:30)
[2018-11-02] MEDS: CEPHALEXIN MONO 500 MG CAP PO SCH ×3 (09:00→21:00)
--- NOTE | 2018-11-02 10:15 | Hospitalist Progress Note ---
Subjective Progress Notes Subjective This patient was admitted for a urinary infection. She had no acute issues overnight. Patient Complains of: Cardiovascular: No: Chest Pain Respiratory: No: Shortness of Breath Physical Exam Vital Signs Date Time Temp Pulse Resp B/P (MAP) Pulse Ox O2 Delivery O2 Flow Rate FiO2 11/02/18 07:13 98.3 75 16 177/87 (117) 96 Nasal Cannula 1.0 Intake and Output 11/02/18 07:00 Intake Total 560 ml Output Total 2700 ml Balance -2140 ml Intake Oral 560 ml Output Urine Total 2700 ml Cardiovascular: Regular Rate and Rhythm Respiratory: Clear to Auscultation Result Diagram: 10/29/18 0558 10/30/18 0542 Assessment and Plan Problems: (1) Urinary tract infection Status: Acute Assessment & Plan: Her urine culture was positive for E. coli. Her CT scan showed bladder wall thickening that was thought to be related to infection. She was on empiric treatment with IV ceftriaxone, but has now been converted to oral Keflex. She has been on chronic Macrodantin for suppressive therapy. Dr Powell saw patient and plans to perform in office cysto to further evaluate bladder thickening, but believes likely due top infection. (2) Failure to thrive Status: Acute Assessment & Plan: She was at the [facility], but checked herself out. The current plan is that she will transfer to assisted living. (3) CHRONIC ATRIAL FIBRILLATION Status: Chronic Assessment & Plan: She has been managed with carvedilol and digoxin for rate control and Xarelto for CVA prophylaxis. The Xarelto was discontinued secondary to hematuria. (4) CKD (chronic kidney disease) stage 3, GFR 30-59 ml/min Status: Chronic (5) Type II diabetes mellitus Status: Chronic Assessment & Plan: She is on chronic treatment with NPH and Humalog. We currently have her on the NPH and sliding scale level #2. (6) HTN (hypertension) Status: Chronic Assessment & Plan: She is on chronic treatment with carvedilol and amlodipine was added during this admission. (7) CAD (coronary artery disease) Status: Chronic Assessment & Plan: Will continue her beta rishi and statin. (8) Heart failure with reduced ejection fraction Status: Chronic Assessment & Plan: She has been on carvedilol and furosemide. (9) Uterine fibroid Assessment & Plan: This was noted incidentally on her CT scan. Follow up with gynecology was recommended. (10) Bladder wall thickening Assessment & Plan: Radiology recommended cystoscopy to rule out malignancy. She is already established with Dr. Jara, and will need to follow up with him as an outpatient. Exam Sepsis Risk: No Definite Risk Problem Qualifiers (1) Failure to thrive: Failure to thrive age range: in adult Qualified Codes: R62.7 - Adult failure to thrive SANJU ESCALANTE DO Nov 02, 2018 10:15
[2018-11-02] MEDS: INSULIN HUM LISPRO 100 UN/ML 3 ML VIAL SUBQ PRN ×3 (12:12→20:38)
[2018-11-02 12:53] VITALS: BP 153/66
[2018-11-02 14:57] VITALS: BP 146/91
--- NOTE | 2018-11-02 17:10 | NUR ---
Physical Therapy Impression Pt requires Mod A to scoot forward in bed, CGA to stand, and CGA to ambulate 10' with RW. Pt demonstrates poor tolerance to all activity reporting fatigue throughout session. Recommend 24 hour assistance for safety. Physical Therapy Goals 1. Mod I bed mobility. 2. SBA transfers. 3. SBA gait x 50' with RW. 4. Ascend/descend 2 stairs SBA. Patient's Goals
[2018-11-02 18:57] VITALS: BP 153/78
[2018-11-03 02:46] VITALS: BP 141/71
[2018-11-03 06:49] VITALS: BP 164/76
[2018-11-03] MEDS: INSULIN HUM LISPRO 100 UN/ML 3 ML VIAL SUBQ PRN ×4 (08:01→20:21)
[2018-11-03] MEDS: INSULIN HUM ISO(NPH) 100 UN/ML 3 ML VIAL SUBQ SCH ×2 (08:01→16:50)
[2018-11-03] MEDS: ACETAMINOPHEN 325 MG TAB PO PRN ×2 (08:11→16:51)
[2018-11-03] MEDS: GABAPENTIN 300 MG CAP PO SCH ×2 (08:11→20:20)
[2018-11-03] MEDS: CEPHALEXIN MONO 500 MG CAP PO SCH ×4 (08:11→20:20)
[2018-11-03] MEDS: amLODIPine BESYL(*) 5 MG TAB PO SCH (08:11)
[2018-11-03] MEDS: TAMSULOSIN HCL 0.4 MG CAP PO SCH (09:52)
[2018-11-03] MEDS: NYSTATIN 100,000 U/GM PWD 15GM TP SCH ×2 (09:52→20:20)
[2018-11-03] MEDS: FUROSEMIDE 40 MG TAB PO SCH (09:54)
[2018-11-03] MEDS: DIGOXIN 0.125 MG TAB PO SCH (09:54)
[2018-11-03] MEDS: CARVEDILOL 25 MG TABLET PO SCH ×2 (09:54→20:20)
--- NOTE | 2018-11-03 13:23 | Hospitalist Progress Note ---
Subjective Progress Notes Subjective 73F admitted for UTI. CHARLIE overnight, likely discharge to [facility] early this week. Patient Complains of: Respiratory: No: Cough Gastrointestinal: No Nausea, No Vomiting Physical Exam Vital Signs Date Time Temp Pulse Resp B/P (MAP) Pulse Ox O2 Delivery O2 Flow Rate FiO2 11/03/18 12:11 77 94 Nasal Cannula 1.0 11/03/18 06:49 98.3 164/76 (105) 94 Intake and Output 11/03/18 06:59 Intake Total 1290 ml Output Total 2325 ml Balance -1035 ml Intake Oral 1290 ml Output Urine Total 2325 ml # Bowel Movements 2 General Appearance: Awake, No Acute Distress, Afebrile Neuro: No Gross deficits Cardiovascular: Normal Rhythm & Peripheral Pulses Respiratory: No Respiratory Distress GI: Soft and Non-Tender Extremities: Soft and Non Tender, Warm, Pulses, Perfused Result Diagram: 10/30/18 0542 Assessment and Plan Problems: (1) Urinary tract infection Status: Acute Assessment & Plan: Her urine culture was positive for E. coli. Her CT scan showed bladder wall thickening that was thought to be related to infection. She was on empiric treatment with IV ceftriaxone, but has now been converted to oral Keflex. She has been on chronic Macrodantin for suppressive therapy. Dr Powell saw patient and plans to perform in office cysto to further evaluate bladder thickening, but believes likely due to infection. (2) Failure to thrive Status: Acute Assessment & Plan: She was at the [facility], but checked herself out. The current plan is that she will transfer to assisted living. (3) CHRONIC ATRIAL FIBRILLATION Status: Chronic Assessment & Plan: She has been managed with carvedilol and digoxin for rate control and Xarelto for CVA prophylaxis. The Xarelto was discontinued secondary to hematuria. (4) CKD (chronic kidney disease) stage 3, GFR 30-59 ml/min Status: Chronic (5) Type II diabetes mellitus Status: Chronic Assessment & Plan: She is on chronic treatment with NPH and Humalog. We cur rently have her on the NPH and sliding scale level #2. (6) HTN (hypertension) Status: Chronic Assessment & Plan: She is on chronic treatment with carvedilol and amlodipine was added during this admission. (7) CAD (coronary artery disease) Status: Chronic Assessment & Plan: Will continue her beta rishi and statin. (8) Heart failure with reduced ejection fraction Status: Chronic Assessment & Plan: She has been on carvedilol and furosemide. (9) Uterine fibroid Assessment & Plan: This was noted incidentally on her CT scan. Follow up with gynecology was recommended. (10) Bladder wall thickening Assessment & Plan: Radiology recommended cystoscopy to rule out malignancy. She is already established with Dr. Jara, and will need to follow up with him as an outpatient. Exam Sepsis Risk: No Definite Risk Problem Qualifiers (1) Failure to thrive: Failure to thrive age range: in adult Qualified Codes: R62.7 - Adult failure to thrive JEREMIAS SINGLETON DO Nov 03, 2018 13:23
[2018-11-03 15:12] VITALS: BP 153/95
[2018-11-03 20:09] VITALS: BP 153/81
[2018-11-04 03:34] VITALS: BP 147/61
[2018-11-04 08:18] VITALS: BP 168/84
[2018-11-04] MEDS: NYSTATIN 100,000 U/GM PWD 15GM TP SCH ×2 (08:25→20:42)
[2018-11-04] MEDS: INSULIN HUM ISO(NPH) 100 UN/ML 3 ML VIAL SUBQ SCH ×2 (08:25→16:53)
[2018-11-04] MEDS: CEPHALEXIN MONO 500 MG CAP PO SCH ×4 (08:27→20:39)
[2018-11-04] MEDS: ACETAMINOPHEN 325 MG TAB PO PRN ×3 (08:27→22:32)
[2018-11-04] MEDS: DIGOXIN 0.125 MG TAB PO SCH (08:27)
[2018-11-04] MEDS: CARVEDILOL 25 MG TABLET PO SCH ×2 (08:28→20:39)
[2018-11-04] MEDS: RIVAROXABAN 10 MG TAB PO SCH (08:28)
[2018-11-04] MEDS: TAMSULOSIN HCL 0.4 MG CAP PO SCH (08:28)
[2018-11-04] MEDS: FUROSEMIDE 40 MG TAB PO SCH (08:28)
[2018-11-04] MEDS: GABAPENTIN 300 MG CAP PO SCH ×2 (08:28→20:39)
[2018-11-04] MEDS: amLODIPine BESYL(*) 5 MG TAB PO SCH (08:28)
--- NOTE | 2018-11-04 09:37 | NUR ---
Physical Therapy Impression Pt fatigued today, declines ambulation but agreeable to transfer to [facility]. SBA for supine to sit with HOB raised and use of bed rail, sit to supine completed with HOB flat. CGA for pivot transfer to/from [facility] with RW, ambulation x3' alongside bed. Pt requires increased time for all mobility. Rec 24 hr assist upon d/c. Physical Therapy Goals 1. Mod I bed mobility. 2. SBA transfers. 3. SBA gait x 50' with RW. 4. Ascend/descend 2 stairs SBA. Patient's Goals
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
[2018-11-04 11:10] LABS: PLATELET COUNT, AUTOMATED 241 K/uL (150-450)
[2018-11-04] MEDS: INSULIN HUM LISPRO 100 UN/ML 3 ML VIAL SUBQ PRN ×3 (11:45→20:40)
--- NOTE | 2018-11-04 13:22 | Hospitalist Progress Note ---
Subjective Progress Notes Subjective She is frustrated about where she will be living. No fevers. Physical Exam Vital Signs Date Time Temp Pulse Resp B/P (MAP) Pulse Ox O2 Delivery O2 Flow Rate FiO2 11/04/18 08:32 93 Nasal Cannula 1.0 11/04/18 08:27 69 11/04/18 08:18 98.6 16 168/84 (112) Intake and Output 11/04/18 07:00 Intake Total 1000 ml Output Total 2500 ml Balance -1500 ml Intake Oral 1000 ml Output Urine Total 2500 ml # Bowel Movements 4 General Appearance: Alert, Awake Cardiovascular: Other (Irregular distant tones with systolic murmur) Respiratory: Other (Fairly clear) GI: Soft and Non-Tender Extremities: Warm, Perfused Psych: Alert & Oriented X3 Result Diagram: 11/04/18 1052 11/04/18 1052 Assessment and Plan Problems: (1) Urinary tract infection Status: Acute Assessment & Plan: Her urine culture was positive for E. coli. Her CT scan showed bladder wall thickening that was thought to be related to infection. She was on empiric treatment with IV ceftriaxone, but has now been converted to oral Keflex. She has been on chronic Macrodantin for suppressive therapy. Dr Powell saw patient and plans to perform in office cystoscopy to further evaluate bladder thickening, but believes likely due to infection. (2) Failure to thrive Status: Acute Assessment & Plan: She was at the [facility], but checked herself out. The current plan is that she will transfer to assisted living, but she may not have the funds to do this. She is working with Discharge planning. (3) CHRONIC ATRIAL FIBRILLATION Status: Chronic Assessment & Plan: She has been managed with carvedilol and digoxin for rate control and Xarelto for CVA prophylaxis. The Xarelto was held secondary to hematuria and will be restarted soon. (4) CKD (chronic kidney disease) stage 3, GFR 30-59 ml/min Status: Chronic (5) Type II diabetes mellitus Status: Chronic Assessment & Plan: She is on chronic treatment with NPH and Humalog. We currently have her on the NPH and sliding scale level #2. (6) HTN (hypertension) Status: Chronic Assessment & Plan: She is on chronic treatment with carvedilol and amlodipine was added during this admission. (7) CAD (coronary artery disease) Status: Chronic Assessment & Plan: Will continue her beta rishi and statin. (8) Heart failure with reduced ejection fraction Status: Chronic Assessment & Plan: She has been on carvedilol and furosemide. (9) Uterine fibroid Assessment & Plan: This was noted incidentally on her CT scan. Follow up with gynecology was recommended. (10) Bladder wall thickening Assessment & Plan: Radiology recommended cystoscopy to rule out malignancy. She is already established with Dr. Jara, and will need to follow up with him as an outpatient. Exam Sepsis Risk: No Definite Risk Problem Qualifiers (1) Failure to thrive: Failure to thrive age range: in adult Qualified Codes: R62.7 - Adult failure to thrive RAMIN THURMAN MD Nov 04, 2018 13:22
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
--- NOTE | 2018-11-04 14:53 | NUR ---
DUSTIN rec'd information that there was now an ECF consult placed for the patient. DUSTIN attempted to contact [facility] to find out what options they have discussed with the pt. DUSTIN encouraged [facility] to discuss the option of 24 hr care, or at least utilizing home instead to supplement home healthcare.
--- NOTE | 2018-11-04 15:10 | NUR ---
11/04/18 HADS scores include A:6, D: 2
--- NOTE | 2018-11-04 15:11 | NUR ---
11/04/18 MoCA test scores include: Visuospacial/executive: 2/5 Namin/3 Attention: 36 Language: 3/3 Abstraction: 2/2 Delayed recall: 0/5 Orientation: 01/23 Total: , suggests mild or moderate cognitive impairment.
[2018-11-04 15:16] VITALS: BP 162/68
--- NOTE | 2018-11-04 16:41 | NUR ---
Occupational Therapy Impression Pt alert and agreeable to OT tx with encouragement. Pt reporting discouragement with discharge plans. Reports desire to discharge home. Encouraged pt to discuss what she would need assist with if she were to discharge home. Pt reports "help with everything." Min A supine<>sit with HOB raised. CGA ambulation 2x15ft with RW. Rec 24/ assist for ADLs/IADLs upon discharge. Occupational Therapy Goals 1) Pt will be Min A UB/LB dressing. 2) Pt will be Min A toilet task. 3) Pt will be Min A grooming/hygiene. Patient's Goal
[2018-11-04 18:48] VITALS: BP 151/65
[2018-11-04] MEDS ORDERED: PROMETHAZINE 25 MG/ML 1 ML AMP IVP PRN (19:35)
[2018-11-05 02:24] VITALS: BP 133/76
[2018-11-05] MEDS: DIGOXIN 0.125 MG TAB PO SCH (08:36)
[2018-11-05] MEDS: CARVEDILOL 25 MG TABLET PO SCH (08:36)
[2018-11-05] MEDS: RIVAROXABAN 10 MG TAB PO SCH (08:37)
[2018-11-05] MEDS: CEPHALEXIN MONO 500 MG CAP PO SCH (08:37)
[2018-11-05] MEDS: ACETAMINOPHEN 325 MG TAB PO PRN (08:37)
[2018-11-05] MEDS: amLODIPine BESYL(*) 5 MG TAB PO SCH (08:37)
[2018-11-05] MEDS: TAMSULOSIN HCL 0.4 MG CAP PO SCH (08:37)
[2018-11-05] MEDS: GABAPENTIN 300 MG CAP PO SCH (08:37)
[2018-11-05] MEDS: FUROSEMIDE 40 MG TAB PO SCH (08:37)
[2018-11-05] MEDS: INSULIN HUM ISO(NPH) 100 UN/ML 3 ML VIAL SUBQ SCH (08:37)
[2018-11-05] MEDS: NYSTATIN 100,000 U/GM PWD 15GM TP SCH (08:38)
[2018-11-05] MEDS ORDERED: NITR-57 PO (10:48)
[2018-11-05] MEDS ORDERED: TAMS0.4C25 PO (10:48)
--- NOTE | 2018-11-05 10:54 | Medical Nutrition Therapy ---
Nutrition Anthropometrics Height (Inches): 67.00 Height (Calculated Centimeters: 170.153806 Weight (Pounds): 155 Weight (Calculated Kilograms): 70.307 BMI: 22.9 Arnoldo Nutrition Score: Adequate Arnoldo Nutrition Risk Score: 17 Dietary Referral Nutrition Risk Factors: Special Diet Nutrition Risk Comment: Physical Findings Physical Appearance: Skin Appearance Skin Appearance: Edema Edema Location Modifier: Edema Location: Type of Edema: Degree of Edema: Gastrointestinal Symptoms GI Symtoms: Nausea Tube Present: Bowel Sounds: Recent Bowel Pattern: Stool Characteristics: Nutritional Diagnosis Nutritional Risk Acuity 1: Fail to Thrive Nutritional Risk Acuity 2: CHF w/Complication, Chronic Renal Failure, Blood Glucose > 300mg/dl Nutritional Risk Acuity 3: Fair Appetite Past Medical History: CAD, HTN, T2DM, CKD-3, non-Hodkins lymphoma, CHF, chronic edema, chronic UTI, hypercholesteremia, urinary incontinence, chronic renal disease, pulmonary nodule, GI bleed, anemia, ribs (multiple fractures), hypogammagloblinemia, lumbosacral spinal surgery, tonsillectomy, and cataract extraction and CABG. Nutritional Acuity: 2-Moderate Nutrition Diagnosis: Inappropriate Carb Intake Nutrition Etiology: Inability Manage SelfCare Nutrition Problem/Etiology/Sym: Inappropriate carb intake related to inability to manage selfcare as evidenced by elevated glucose leves (WBG = 263-372, RBG = 149) and pt's daughter reported that she does not take her medications regularly. Energy Requirement: 1581 (MSJ, 1.1 TEF, 1.2 AF) Protein Requirement: 66 (1g AA/kg of BW) Fluid Requirement: 1581 (1cc/kcal) Diet Type: Diabetic Nutrition Intervention: Cont diet as ordered, Check glucose Nutrition Monitoring & Eval Nutrition Goals: Eat 50-100% Meal Nutrition Follow-Up: Good Intake Nutrition Monitoring: Pt consuming 75% of diabetic meals. RD Patient Assessment Time: [address] Assessment Type: RD Re-Assessment Patient Nutrition Acuity: 2-Moderate Follow Up Date: Nov 08, 2018 Nutritional Comment: 10/29: Pt admitted for chronic UTI, generalized weakness, and right flank pain. Pt has a hx of CAD, HTN, T2DM, CKD-3, non-Hodkins lymphoma, CHF, chronic edema, chronic UTI, hypercholesteremia, urinary incontinence, chronic renal disease, pulmonary nodule, GI bleed, anemia, ribs (multiple fractures), hypogammagloblinemia, lumbosacral spinal surgery, tonsillectomy, and cataract extraction and CABG.Pt has elevated BUN (20), AST (42), creatinine (1.4), WBG (263-372), and RBG (149. Pt has decresed albumin (2.8). Pt is currently taking rivaroxaban (anti-coagulant). Pt is on a diabetic diet with no currently intake charted. -SHARAD 11/01: Pt dx with UTI, urine culture showed e-coli. Pt is doing better today. Pt had elevated WBG (186-348). Pt on a diabetic diet consuming 75-100% of meals. -SHARAD 11/05: Pt dx with failure to thrive, probably related to elevated BG levels and unability to manage self care. Pt having no fevers and is set to discharge to [facility] sometime this week. Pt has decreased sodium (135) and albumin (3.0) levels. Pt has elevated RBG (291), WBG (143-342), creatinine (1.2) levels. Pt is on a diabetic diet and consuming 75% of meals. customer operations intern went to talk to pt about diabetes, pt declined verbal education but asked learning and development intern to leave educational materials with her to look at. Continue monitoring intake and glucose. -EUNICE MATTHEWS Nov 05, 2018 08:36
[2018-11-05] MEDS ORDERED: AMLO-125 PO (10:56)
--- NOTE | 2018-11-05 11:00 | Hospitalist Depart ---
Discharge Summary Reason for Hosp/Final Diag: (1) Urinary tract infection Status: Acute Hospital Course & Plan: Her urine culture was positive for E. coli. Her CT scan showed bladder wall thickening that was thought to be related to infection. She was on empiric treatment with IV ceftriaxone, but was converted to oral Keflex. She has been on chronic Macrodantin for suppressive therapy. Dr Isbell saw patient and plans to perform in office cystoscopy to further evaluate bladder thickening, but believes likely due to infection. She has completed treatment for UTI, and will now be switched back to suppressive therapy with Macrodantin until follow up appointment with Dr. Isbell. (2) Failure to thrive Status: Acute Hospital Course & Plan: She was at the [facility], but checked herself out. She was going to transfer to assisted living, but she does not have the funds to do this. At this time, she wants to go home with home health. (3) CHRONIC ATRIAL FIBRILLATION Status: Chronic Hospital Course & Plan: She has been managed with carvedilol and digoxin for rate control and Xarelto for CVA prophylaxis. The Xarelto was held secondary to hematuria and will be restarted now. (4) CKD (chronic kidney disease) stage 3, GFR 30-59 ml/min Status: Chronic (5) Type II diabetes mellitus Status: Chronic Hospital Course & Plan: She is on chronic treatment with NPH and Humalog. We currently have her on the NPH and sliding scale level #2. She will continue her regular home regimen, and decrease her NPH from 50 units BID to 40units BID. (6) HTN (hypertension) Status: Chronic Hospital Course & Plan: She is on chronic treatment with carvedilol and amlodipine was added during this admission. (7) CAD (coronary artery disease) Status: Chronic Hospital Course & Plan: Will continue her beta rishi and statin. (8) Heart failure with reduced ejection fraction Status: Chronic Hospital Course & Plan: She has been on carvedilol and furosemide. (9) Uterine fibroid Hospital Course & Plan: This was noted incidentally on her CT scan. Follow up with gynecology was recommended. (10) Bladder wall thickening Hospital Course & Plan: Radiology recommended cystoscopy to rule out malignancy. She is already established with Dr. Isbell, and will need to follow up with him as an outpatient. Departure Latest Vital Signs Vital Signs 11/05/18 11/05/18 11/05/18 02:24 08:29 08:36 Temp 97.6 Pulse 67 Resp 16 B/P (MAP) 133/76 (95) Pulse Ox 93 O2 Delivery Nasal Cannula O2 Flow Rate 1.0 Weight (Pounds): 155 Weight (Ounces): 6.0 Result Diagram: 11/04/18 1052 11/04/18 1052 Condition: Improved Discharge: Home, Home Health Discharge Instructions Home Meds Active Scripts Tamsulosin Hcl (FLOMAX) 0.4 Mg Cap.er.24h, 0.4 MG PO DAILY, #30 CAP Prov:MARIAJOSE RODARTE [facility] 11/05/18 Nitrofurantoin Monohyd/M-Cryst (NITROFURANTOIN MONO-MCR 100 MG) 100 Mg Capsule, 100 MG PO QHS for UTI prophylaxis, #30 CAPSULE Prov:MARIAJOSE RODARTE [facility] 11/05/18 Digoxin (Digox) 125 Mcg Tablet, 0.125 MG PO QDAY, #30 TAB Prov:MARIAJOSE RODARTE [facility] 09/11/18 Carvedilol (CARVEDILOL) 25 Mg Tablet, 25 MG PO BID, #60 TAB Prov:MARIAJOSE RODARTE [facility] 09/11/18 Gabapentin (GABAPENTIN) 300 Mg Capsule, 300 MG PO BID, #60 CAPSULE Prov:MARIAJOSE RODARTE [facility] 07/18/18 Tramadol Hcl (TRAMADOL HCL) 50 Mg Tablet, 50 MG PO Q6H PRN for PAIN, #60 TAB Prov:MARIAJOSE RODARTE [facility] 07/18/18 Mirabegron (MYRBETRIQ) 50 Mg Tab.er.24h, 50 MG PO DAILY for overactive bladder for 30 Days, #30 CAP 3 Refills Prov:MACHELLE ISBELL MD 06/18/18 Reported Medications Vitamins A and D (Sween Cream) 85 Gm Cream..g., TOP QDAY PRN for ITCHING 09/09/18 Rivaroxaban 15 Mg (XARELTO 15 MG) 15 Mg Tablet, 15 MG PO QDAY, TAB 09/09/18 Glucosamine Sulfate 2KCL (GLUCOSAMINE) 1,000 Mg Tablet, 1000 MG PO BID 09/09/18 Insulin Lispro 100 Un/Ml Pen (HUMALOG 3 ML PEN) 100 Unit/1 Ml Insuln.pen, 100 UNIT SQ DIRECTED, DIS.SYR 09/08/18 Acetaminophen (TYLENOL) 325 Mg Tablet, 650 MG PO Q6H PRN for PAIN, TAB 09/08/18 Potassium Chloride (POTASSIUM CHLORIDE) 10 Meq Capsule.er, 10 MEQ PO DAILY 09/08/18 Bupropion HCl (Bupropion HCl ER) 200 Mg Tablet.er, 150 MG PO BID 09/08/18 Furosemide (LASIX) 40 Mg Tablet, 1 TAB PO DAILY, TAB 09/07/18 Melatonin (MELATONIN) 3 Mg Tablet, 3 MG PO HS 08/02/18 Atorvastatin Calcium (ATORVASTATIN CALCIUM) 20 Mg Tablet, 1 TAB PO QDAY, TAB 07/06/18 Oxygen (OXYGEN) Inha, 3 L INH, L 06/18/17 Lysine (LYSINE) 500 Mg Tablet, 500 MG PO BID 04/27/16 Cranberry Extract (CRANBERRY) 200 Mg Capsule, 200 MG PO BID, CAPSULE 11/11/14 Multivitamin (MULTI VITAMIN DAILY) 1 Each Tablet, 1 EACH PO QDAY 04/14/14 Nph, Human Insulin Isophane (HUMULIN N) 100 Unit/1 Ml Vial, 40 UNIT SQ BID 03/04/12 Discontinued Reported Medications Diltiazem Hcl (DILTIAZEM 24HR ER) 120 Mg Cap.er.24h, 1 CAP PO QDAY 10/28/18 Diet: Diabetic Activity: As Tolerated Special Instructions: Follow up with Primary Care Provider in 1 week. Follow up with Urology in 1-2 weeks. Follow up with gynecology within one month. Copies to: ISA ORTIZ DO; AG MELENDEZ DO; MACHELLE ISBELL MD ; Venous Thromboembolism Antithrombotics Is Pt On Any Antithrombotics?: Yes [id number] Certification Face to Face Home Health Certification Patient's Primary Care Provider: Ag Melendez DO Institutional Provider conducted the [id number] encounter. Electronic Undersigning Physician Certifies Home Health. I certify that the patient has been under my care and that I had a [id number] encounter that meets the physician uzyf-sg-[id number] encounter requirements with this patient. This patient is home-bound due to safety issues and continues to require assistance with ADL's. I certify that based on my findings, that Nursing, Aides and the following Home Health services are medically necessary. Medical Necessity: Nursing, Rehab Date Face to Face Conducted: Nov 05, 2018 Problem Qualifiers (1) Failure to thrive: Failure to thrive age range: in adult Qualified Codes: R62.7 - Adult failure to thrive (2) HTN (hypertension): Hypertension type: essential hypertension Qualified Codes: I10 - Essential (primary) hypertension MARIAJOSE RODARTEP Nov 05, 2018 11:00
[2018-11-05] MEDS: INSULIN HUM LISPRO 100 UN/ML 3 ML VIAL SUBQ PRN (11:06)
--- NOTE | 2018-11-05 13:49 | NUR ---
PHYSICAL THERAPY INFORMATION TRANSFER SHEET BED MOBILITY: Minimum Assistance 1 person assist TRANSFERS: CGA GAIT: 10 ' with O2 RW and CGA Weightbearing Status: STAIRS: with . EXERCISES: Verbalizes Needs: Yes Understands Directions Yes Cooperative: Yes Family Teaching: No Physical Therapy Comment:
--- NOTE | 2018-11-05 14:14 | NUR ---
OCCUPATIONAL THERAPY Dressing Assistance: Chandler POOLE dressing. Set-up UB. Bathing Assistance: N/T with OT Home Assessment: Not Completed Feeding Assistance: Set-up Feeding Specialized Equipment: Toilet Use: Maximum Assistance 1 person assist Verbalizes Needs: Yes Understands Precautions: Yes Cooperative: Yes Family Teaching: No Occupational Therapy Comment: Recommend 12/03 assist for all ADLs/IADLs.
== END 2018-11-05 12:10 | disposition home health service (06) | DRG 690 ==
LOC: ER 12:22 → MED 18:00
PROVIDERS: ADMIT Internal Medicine; ATTEND Internal Medicine
DX: N39.0 Urinary tract infection, site not specified (principal); I13.0 Hypertensive heart and chronic kidney disease with heart failure and stage 1 through stage 4 chronic kidney disease, or unspecified chronic kidney disease; I50.22 Chronic systolic (congestive) heart failure; D80.1 Nonfamilial hypogammaglobulinemia; C83.90 Non-follicular (diffuse) lymphoma, unspecified, unspecified site; E11.22 Type 2 diabetes mellitus with diabetic chronic kidney disease; I48.2 Chronic atrial fibrillation; B96.20 Unspecified Escherichia coli [E. coli] as the cause of diseases classified elsewhere; N18.3 Chronic kidney disease, stage 3 (moderate); I25.10 Atherosclerotic heart disease of native coronary artery without angina pectoris; R62.7 Adult failure to thrive; G89.29 Other chronic pain; D25.9 Leiomyoma of uterus, unspecified; R53.1 Weakness; I25.2 Old myocardial infarction; Z88.8 Allergy status to other drugs, medicaments and biological substances; Z68.24 Body mass index [BMI] 24.0-24.9, adult; Z95.1 Presence of aortocoronary bypass graft; Z91.14 Patient's other noncompliance with medication regimen; Z79.4 Long term (current) use of insulin
CPT/HCPCS: 36415; 36416; 74176; 80162; 81001; 82009; 82040; 82150; 82247; 82310; 82374; 82435; 82565; 82947; 82948; 83690; 83880; 83930; 84075; 84132; 84155; 84295; 84450; 84460; 84484; 84520; 85025; 85610; 85730; 86140; 87077; 87088; 87186; 87502; 93005; 96361; 96374; 96375; 97162; 97166; 99284; A4353; J0696; J1160; J1815; J2405; J3490; J7030; J7040; J7050; Q9967

== ENCOUNTER → 2018-11-05 | Outpatient (CLI) | payer MEDICARE, OTHER ==
[2018-10-29 11:41] VITALS: BMI 22.9
[~2018-11-05] MED LIST changes: +DILT120C28 PO; +TAMS0.4C25 PO
== END ==
LOC: AMB 11:58
PROVIDERS: ATTEND Nurse Practitioner
DX: N39.0 Urinary tract infection, site not specified (principal); R53.1 Weakness
CPT/HCPCS: A0425; A0428

== ENCOUNTER → 2018-11-19 | Outpatient (REF) | payer MEDICARE, OTHER ==
[2018-10-29 11:41] VITALS: BMI 22.9
[~2018-11-19] MED LIST changes: +CEPH500T7 PO
== END ==
PROVIDERS: ATTEND Urology
DX: R30.0 Dysuria (principal)
CPT/HCPCS: 81001; 87088

== ENCOUNTER 2018-11-21 15:30 | Emergency (ER) | payer MEDICARE, OTHER ==
[2018-10-29 11:41] VITALS: Wt 70.5 kg
[~2018-11-21 15:30] MED LIST changes: -BUPR-136 PO; -CEPH500T7 PO
--- NOTE | 2018-11-21 15:35 | ER Report ---
History and Physical Time Seen By MD: 15:35 Hx. of Stated Complaint: URINARY FREQUENCY SINCE SUNDAY HPI/ROS CHIEF COMPLAINT: dysuria HISTORY OF PRESENT ILLNESS: Pt here for evaluation of possible uti. Pt states that Sunday she started with increase frequency and pain with urination. Pt states she only goes a little at a time. 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 Pt was told by the nurse that the urine was fine.Pt states symptoms are even more painful today so came to the emergency divya m. No fevers. + superpubic abdominal pain. REVIEW OF SYSTEMS: Constitutional: No fever, no chills. Eyes: No discharge. ENT: No sore throat. Cardiovascular: No chest pain, no palpitations. Respiratory: No cough, no shortness of breath. Gastrointestinal: + abdominal pain, no vomiting. Genitourinary: No hematuria. + dysuria, + frequency Musculoskeletal: No back pain. Skin: No rashes. Neurological: No headache. Allergies: Coded Allergies: ketorolac (Verified Allergy, Severe, COULD NOT SEE, N&V, THOUGHT SHE WAS GOING TO , 11/21/18) ibuprofen (Verified Adverse Reaction, Unknown, DIZZINESS, NAUSEA, VOMITING, 11/21/18) Home Meds Active Scripts Nitrofurantoin Monohyd/M-Cryst (NITROFURANTOIN MONO-MCR 100 MG) 100 Mg Capsule, 50 MG PO QHS for UTI prophylaxis, #30 CAPSULE 3 Refills Prov:MACHELLE ISBELL MD 11/19/18 Amlodipine Besylate (AMLODIPINE BESYLATE) 5 Mg Tablet, 5 MG PO QDAY, #30 TAB Prov:MARIAJOSE RODARTEP 11/05/18 Tamsulosin Hcl (FLOMAX) 0.4 Mg Cap.er.24h, 0.4 MG PO DAILY, #30 CAP Prov:MARIAJOSE RODARTEP 11/05/18 Digoxin (Digox) 125 Mcg Tablet, 0.125 MG PO QDAY, #30 TAB Prov:MARIAJOSE RODARTEP 09/11/18 Carvedilol (CARVEDILOL) 25 Mg Tablet, 25 MG PO BID, #60 TAB Prov:MARIAJOSE RODARTEP 09/11/18 Gabapentin (GABAPENTIN) 300 Mg Capsule, 300 MG PO BID, #60 CAPSULE Prov:MARIAJOSE RODARTEP 07/18/18 Tramadol Hcl (TRAMADOL HCL) 50 Mg Tablet, 50 MG PO Q6H PRN for PAIN, #60 TAB Prov:MARIAJOSE RODARTE [employer] 07/18/18 Mirabegron (MYRBETRIQ) 50 Mg Tab.er.24h, 50 MG PO DAILY for overactive bladder for 30 Days, #30 CAP 3 Refills Prov:MACHELLE ISBELL MD 06/18/18 Reported Medications Vitamins A and D (Sween Cream) 85 Gm Cream..g., TOP QDAY PRN for ITCHING 09/09/18 Rivaroxaban 15 Mg (XARELTO 15 MG) 15 Mg Tablet, 15 MG PO QDAY, TAB 09/09/18 Glucosamine Sulfate 2KCL (GLUCOSAMINE) 1,000 Mg Tablet, 1000 MG PO BID 09/09/18 Insulin Lispro 100 Un/Ml Pen (HUMALOG 3 ML PEN) 100 Unit/1 Ml Insuln.pen, 100 UNIT SQ DIRECTED, DIS.SYR 09/08/18 Acetaminophen (TYLENOL) 325 Mg Tablet, 650 MG PO Q6H PRN for PAIN, TAB 09/08/18 Potassium Chloride (POTASSIUM CHLORIDE) 10 Meq Capsule.er, 10 MEQ PO DAILY 09/08/18 Bupropion HCl (Bupropion HCl ER) 200 Mg Tablet.er, 150 MG PO BID 09/08/18 Furosemide (LASIX) 40 Mg Tablet, 1 TAB PO DAILY, TAB 09/07/18 Melatonin (MELATONIN) 3 Mg Tablet, 3 MG PO HS 08/02/18 Atorvastatin Calcium (ATORVASTATIN CALCIUM) 20 Mg Tablet, 1 TAB PO QDAY, TAB 07/06/18 Oxygen (OXYGEN) Inha, 3 L INH, L 06/18/17 Lysine (LYSINE) 500 Mg Tablet, 500 MG PO BID 04/27/16 Cranberry Extract (CRANBERRY) 200 Mg Capsule, 200 MG PO BID, CAPSULE 11/11/14 Multivitamin (MULTI VITAMIN DAILY) 1 Each Tablet, 1 EACH PO QDAY 04/14/14 Nph, Human Insulin Isophane (HUMULIN N) 100 Unit/1 Ml Vial, 40 UNIT SQ BID 03/04/12 Past Medical/Surgical History Pmhx: SC, 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 Pshx: 3 back surgeries, tonsillectomy, and cataract surgy Reviewed Nurses Notes: Yes Hx Smoking: No Smoking Status: Never Smoker Exposure to Second Hand Smoke?: Yes (daugher smokes) Hx Substance Use Disorder: No Hx Alcohol Use: No Constitutional Vital Sign - Last 24 Hours 11/21/18 11/21/18 15:30 15:40 Temp 98.8 Pulse 94 Resp 16 B/P (MAP) 175/127 Pulse Ox 97 O2 Delivery Nasal Cannula O2 Flow Rate 3.0 Physical Exam General Appearance: The patient is alert, has no immediate need for airway protection and no signs of toxicity. Eyes: Pupils equal and round no pallor or injection, EOMI ENT: no pharyngeal erythema or exudates, Mucous membranes are moist, TM are nl b/l Respiratory: There are no retractions, lungs are clear to auscultation. Cardiovascular: Regular rate and rhythm. pulses are equal and symmetrical Gastrointestinal: Abdomen is soft with superpubic tenderness, no masses, bowel sounds normal, no guarding, no rigidity or rebound Neurological: Cranial nerves II-XII grossly intact, no sensory or motor loss Skin: Warm and dry, no rashes. Musculoskeletal: Neck is supple non tender, no vertebral tenderness Extremities are nontender, nonswollen and have full range of motion. DIFFERENTIAL DIAGNOSIS: After history and physical exam differential diagnosis was considered for UTI, cystitis, atrophic vagina Medical Decision Making Data Points Result Diagram: 11/21/18 1558 11/21/18 1558 Laboratory Hematology Test 11/21/18 15:49 11/21/18 15:58 Urine Color Mary Urine Clarity Slightly-cloudy Urine pH 6.0 pH (4.8-9.5) Urine Specific Sandy 1.018 Urine Protein 100 mg/dL (NEGATIVE) Urine Glucose (UA) 500 mg/dL (NEGATIVE) Urine Ketones Trace mg/dL (NEGATIVE) Urine Blood Small (NEGATIVE) Urine Nitrite Negative (NEGATIVE) Urine Bilirubin Negative (NEGATIVE) Urine Urobilinogen 2.0 mg/dL (0.2-1.9) Urine Leukocyte Esterase Small (NEGATIVE) Urine RBC 14 /HPF (0-2/HPF) Urine WBC 24 /HPF (0-5/HPF) Urine WBC Clumps Few /HPF Urine Squamous Epithelial Cells None /LPF (NONE-FEW) Urine Bacteria Negative /HPF (NONE-FEW) Urine Mucus None /HPF (NONE-FEW) Red Blood Count 4.80 M/uL (4.17-5.56) Mean Corpuscular Volume 82.0 fL (80.0-96.0) Mean Corpuscular Hemoglobin 26.4 pg (26.0-33.0) Mean Corpuscular Hemoglobin Concent 32.2 g/dL (32.0-36.0) Red Cell Distribution Width 18.3 % (11.5-14.5) Mean Platelet Volume 9.4 fL (7.2-11.1) Neutrophils (%) (Auto) 72.1 % (39.4-72.5) Lymphocytes (%) (Auto) 17.5 % (17.6-49.6) Monocytes (%) (Auto) 7.7 % (4.1-12.4) Eosinophils (%) (Auto) 1.7 % (0.4-6.7) Basophils (%) (Auto) 1.0 % (0.3-1.4) Nucleated RBC Relative Count (auto) 0.1 /100WBC Neutrophils # (Auto) 6.1 K/uL (2.0-7.4) Lymphocytes # (Auto) 1.5 K/uL (1.3-3.6) Monocytes # (Auto) 0.7 K/uL (0.3-1.0) Eosinophils # (Auto) 0.1 K/uL (0.0-0.5) Basophils # (Auto) 0.1 K/uL (0.0-0.1) Nucleated RBC Absolute Count (auto) 0.01 K/uL Peripheral Blood Smear Y/N Sodium Level 136 mmol/L (137-145) Potassium Level 4.0 mmol/L (3.5-5.0) Chloride Level 102 mmol/L (98-107) Carbon Dioxide Level 25 mmol/L (22-31) Blood Urea Nitrogen 14 mg/dl (7-18) Creatinine 1.30 mg/dl (0.52-1.04) Glomerular Filtration Rate Calc 40.0 Random Glucose 295 mg/dl (75-110) Calcium Level 10.0 mg/dl (8.4-10.2) Total Bilirubin 0.3 mg/dl (0.2-1.3) Aspartate Amino Transf (AST/SGOT) 17 U/L (0-35) Alanine Aminotransferase (ALT/SGPT) 25 U/L (0-56) Alkaline Phosphatase 129 U/L (0-126) Total Protein 6.6 g/dl (6.3-8.2) Albumin 4.1 g/dl (3.5-5.0) Chemistry Test 11/21/18 15:49 11/21/18 15:58 Urine Color Mary Urine Clarity Slightly-cloudy Urine pH 6.0 pH (4.8-9.5) Urine Specific Sandy 1.018 Urine Protein 100 mg/dL (NEGATIVE) Urine Glucose (UA) 500 mg/dL (NEGATIVE) Urine Ketones Trace mg/dL (NEGATIVE) Urine Blood Small (NEGATIVE) Urine Nitrite Negative (NEGATIVE) Urine Bilirubin Negative (NEGATIVE) Urine Urobilinogen 2.0 mg/dL (0.2-1.9) Urine Leukocyte Esterase Small (NEGATIVE) Urine RBC 14 /HPF (0-2/HPF) Urine WBC 24 /HPF (0-5/HPF) Urine WBC Clumps Few /HPF Urine Squamous Epithelial Cells None /LPF (NONE-FEW) Urine Bacteria Negative /HPF (NONE-FEW) Urine Mucus None /HPF (NONE-FEW) White Blood Count 8.5 k/uL (4.5-11.0) Red Blood Count 4.80 M/uL (4.17-5.56) Hemoglobin 12.7 g/dL (12.0-16.0) Hematocrit 39.3 % (34.0-47.0) Mean Corpuscular Volume 82.0 fL (80.0-96.0) Mean Corpuscular Hemoglobin 26.4 pg (26.0-33.0) Mean Corpuscular Hemoglobin Concent 32.2 g/dL (32.0-36.0) Red Cell Distribution Width 18.3 % (11.5-14.5) Platelet Count 311 K/uL (150-450) Mean Platelet Volume 9.4 fL (7.2-11.1) Neutrophils (%) (Auto) 72.1 % (39.4-72.5) Lymphocytes (%) (Auto) 17.5 % (17.6-49.6) Monocytes (%) (Auto) 7.7 % (4.1-12.4) Eosinophils (%) (Auto) 1.7 % (0.4-6.7) Basophils (%) (Auto) 1.0 % (0.3-1.4) Nucleated RBC Relative Count (auto) 0.1 /100WBC Neutrophils # (Auto) 6.1 K/uL (2.0-7.4) Lymphocytes # (Auto) 1.5 K/uL (1.3-3.6) Monocytes # (Auto) 0.7 K/uL (0.3-1.0) Eosinophils # (Auto) 0.1 K/uL (0.0-0.5) Basophils # (Auto) 0.1 K/uL (0.0-0.1) Nucleated RBC Absolute Count (auto) 0.01 K/uL Peripheral Blood Smear Y/N Glomerular Filtration Rate Calc 40.0 Calcium Level 10.0 mg/dl (8.4-10.2) Total Bilirubin 0.3 mg/dl (0.2-1.3) Aspartate Amino Transf (AST/SGOT) 17 U/L (0-35) Alanine Aminotransferase (ALT/SGPT) 25 U/L (0-56) Alkaline Phosphatase 129 U/L (0-126) Total Protein 6.6 g/dl (6.3-8.2) Albumin 4.1 g/dl (3.5-5.0) Urinalysis Test 11/21/18 15:49 Urine Color Mary Urine Clarity Slightly-cloudy Urine pH 6.0 pH (4.8-9.5) Urine Specific Sandy 1.018 Urine Protein 100 mg/dL (NEGATIVE) Urine Glucose (UA) 500 mg/dL (NEGATIVE) Urine Ketones Trace mg/dL (NEGATIVE) Urine Blood Small (NEGATIVE) Urine Nitrite Negative (NEGATIVE) Urine Bilirubin Negative (NEGATIVE) Urine Urobilinogen 2.0 mg/dL (0.2-1.9) Urine Leukocyte Esterase Small (NEGATIVE) Urine RBC 14 /HPF (0-2/HPF) Urine WBC 24 /HPF (0-5/HPF) Urine WBC Clumps Few /HPF Urine Squamous Epithelial Cells None /LPF (NONE-FEW) Urine Bacteria Negative /HPF (NONE-FEW) Urine Mucus None /HPF (NONE-FEW) ED Course/Re-evaluation ED Course check cath urine and labs 11/21/2018 4:40:46 pm Pts urine shows beginning of UTI with WBC in clumps and leuks. Will send for culture. No squamous cells so do not suspect contamination. Will start on abx and will adjust as needed Decision to Disposition Date: Nov 21, 2018 Decision to Disposition Time: 16:41 Depart Departure Latest Vital Signs Vital Signs Date Time Temp Pulse Resp B/P (MAP) Pulse Ox O2 Delivery O2 Flow Rate FiO2 11/21/18 15:40 3.0 11/21/18 15:30 98.8 94 16 175/127 97 Nasal Cannula Impression: Primary Impression: Urinary tract infection Additional Impression: Dysuria Condition: Improved Disposition: HOME OR SELF-CARE Referrals: KARIN MELENDEZ DO (PCP) 5 Days New Scripts Cephalexin 500 Mg Tab (KEFLEX 500 MG TAB) 500 Mg Tablet 500 MG PO BID, #14 TAB Prov: LINDSEY NORRIS DO 11/21/18 Phenazopyridine Hcl (PHENAZOPYRIDINE HCL) 200 Mg Tablet 200 MG PO Q8H PRN for DISCOMFORT, #9 TAB Prov: LINDSEY NORRIS DO 11/21/18 Patient Instructions: Urinary Tract Infection in Women (ED) Additional Instructions: You have a urine infection. We are starting you on Keflex twice a day until finished. We sent you urine off to culture. With the culture we will verify that you are on the correct antibiotics. I also provided you with a script for Pyridium. This is a numbing pain medication for your bladder. You can take one every 8 hours as needed to stop the burning with urination. Problem Qualifiers Primary Impression: Urinary tract infection Urinary tract infection type: site unspecified Hematuria presence: without hematuria Qualified Codes: N39.0 - Urinary tract infection, site not specified LINDSEY NORRIS DO Nov 21, 2018 15:35
[2018-11-21] MEDS ORDERED: PHENAZOPYRIDINE 200 MG TAB PO ONE (15:45)
[2018-11-21 16:10] LABS: PLATELET COUNT, AUTOMATED 311 K/uL (150-450)
[2018-11-21] MEDS ORDERED: CEFUROXIME AXETIL 250 MG TAB PO ONE (16:40)
[2018-11-21] MEDS ORDERED: CEPH500T7 PO (16:44)
[2018-11-21] MEDS ORDERED: PHEN200T32 PO (16:44)
[2018-11-21 17:00] VITALS: BP 170/91
== END 2018-11-21 17:14 | disposition home or self-care (01) ==
LOC: ER 16:01
DX: N39.0 Urinary tract infection, site not specified (principal); R30.0 Dysuria
CPT/HCPCS: 36415; 81001; 85025; 87088; 99283; A4353; A9270; 82040; 82247; 82310; 82374; 82435; 82565; 82947; 84075; 84132; 84155; 84295; 84450; 84460; 84520

== ENCOUNTER → 2018-11-21 | Outpatient (CLI) | payer MEDICARE, OTHER ==
[~2018-11-21] MED LIST changes: +BUPR-136 PO
[2018-11-30 08:49] VITALS: BMI 24.1
== END ==
LOC: AMB 15:07
PROVIDERS: ATTEND Nurse Practitioner
DX: R30.9 Painful micturition, unspecified (principal); R35.0 Frequency of micturition
CPT/HCPCS: A0425; A0429

== ENCOUNTER 2018-11-23 19:01 | Emergency (ER) | payer MEDICARE, OTHER ==
[2018-10-29 11:41] VITALS: Wt 69.9 kg
--- NOTE | 2018-11-23 19:00 | ER Report ---
History and Physical Time Seen By MD: 19:00 HPI/ROS CHIEF COMPLAINT: fall, found down HISTORY OF PRESENT ILLNESS: This is a 73 year old female. She fell last night about 2000 hours and could not get up. Slept on the ground until family had call ed for law enforcement to do a welfare check. She has pain in low back, hip and knee on left. Feels very weak. Denies any abdominal pain. No chest pain. Is not short of breath. No dysuria, but has been having urinary problems, currently being worked up by Urology. Denies numbness in the extremities. Is alert and oriented x4. Allergies: Coded Allergies: ketorolac (Verified Allergy, Severe, COULD NOT SEE, N&V, THOUGHT SHE WAS GOING TO , 11/21/18) ibuprofen (Verified Adverse Reaction, Unknown, DIZZINESS, NAUSEA, VOMITING, 11/21/18) Home Meds Active Scripts Cephalexin 500 Mg Tab (KEFLEX 500 MG TAB) 500 Mg Tablet, 500 MG PO BID, #14 TAB Prov:LINDSEY NORRIS V DO 11/21/18 Phenazopyridine Hcl (PHENAZOPYRIDINE HCL) 200 Mg Tablet, 200 MG PO Q8H PRN for DISCOMFORT, #9 TAB Prov:LINDSEY NORRIS V DO 11/21/18 Nitrofurantoin Monohyd/M-Cryst (NITROFURANTOIN MONO-MCR 100 MG) 100 Mg Capsule, 50 MG PO QHS for UTI prophylaxis, #30 CAPSULE 3 Refills Prov:MACHELLE ISBELL MD 11/19/18 Amlodipine Besylate (AMLODIPINE BESYLATE) 5 Mg Tablet, 5 MG PO QDAY, #30 TAB Prov:MARIAJOSE RODARTEP 11/05/18 Tamsulosin Hcl (FLOMAX) 0.4 Mg Cap.er.24h, 0.4 MG PO DAILY, #30 CAP Prov:MARIAJOSE RODARTEP 11/05/18 Digoxin (Digox) 125 Mcg Tablet, 0.125 MG PO QDAY, #30 TAB Prov:MARIAJOSE RODARTEP 09/11/18 Carvedilol (CARVEDILOL) 25 Mg Tablet, 25 MG PO BID, #60 TAB Prov:MARIAJOSE RODARTE 09/11/18 Gabapentin (GABAPENTIN) 300 Mg Capsule, 300 MG PO BID, #60 CAPSULE Prov:MARIAJOSE RODARTE 07/18/18 Tramadol Hcl (TRAMADOL HCL) 50 Mg Tablet, 50 MG PO Q6H PRN for PAIN, #60 TAB Prov:MARIAJOSE 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 Mirabegron (MYRBETRIQ) 50 Mg Tab.er.24h, 50 MG PO DAILY for overactive bladder for 30 Days, #30 CAP 3 Refills Prov:MACHELLE ISBELL MD 06/18/18 Reported Medications Vitamins A and D (Sween Cream) 85 Gm Cream..g., TOP QDAY PRN for ITCHING 09/09/18 Rivaroxaban 15 Mg (XARELTO 15 MG) 15 Mg Tablet, 15 MG PO QDAY, TAB 09/09/18 Glucosamine Sulfate 2KCL (GLUCOSAMINE) 1,000 Mg Tablet, 1000 MG PO BID 09/09/18 Insulin Lispro 100 Un/Ml Pen (HUMALOG 3 ML PEN) 100 Unit/1 Ml Insuln.pen, 100 UNIT SQ DIRECTED, DIS.SYR 09/08/18 Acetaminophen (TYLENOL) 325 Mg Tablet, 650 MG PO Q6H PRN for PAIN, TAB 09/08/18 Potassium Chloride (POTASSIUM CHLORIDE) 10 Meq Capsule.er, 10 MEQ PO DAILY 09/08/18 Bupropion HCl (Bupropion HCl ER) 200 Mg Tablet.er, 150 MG PO BID 09/08/18 Furosemide (LASIX) 40 Mg Tablet, 1 TAB PO DAILY, TAB 09/07/18 Melatonin (MELATONIN) 3 Mg Tablet, 3 MG PO HS 08/02/18 Atorvastatin Calcium (ATORVASTATIN CALCIUM) 20 Mg Tablet, 1 TAB PO QDAY, TAB 07/06/18 Oxygen (OXYGEN) Inha, 3 L INH, L 06/18/17 Lysine (LYSINE) 500 Mg Tablet, 500 MG PO BID 04/27/16 Cranberry Extract (CRANBERRY) 200 Mg Capsule, 200 MG PO BID, CAPSULE 11/11/14 Multivitamin (MULTI VITAMIN DAILY) 1 Each Tablet, 1 EACH PO QDAY 04/14/14 Nph, Human Insulin Isophane (HUMULIN N) 100 Unit/1 Ml Vial, 40 UNIT SQ BID 03/04/12 Reviewed Nurses Notes: Yes Hx Smoking: No Smoking Status: Never Smoker Exposure to Second Hand Smoke?: Yes (daugher smokes) Hx Substance Use Disorder: No Hx Alcohol Use: No Constitutional Vital Sign - Last 24 Hours 11/23/18 11/23/18 11/23/18 11/23/18 19:02 19:18 19:20 20:30 Temp 98.5 Pulse 77 106 107 124 Resp 20 18 15 26 B/P (MAP) 148/73 124/107 (113) Pulse Ox 100 94 O2 Delivery Nasal Cannula Nasal Cannula Nasal Cannula O2 Flow Rate 2.5 2.5 11/23/18 11/23/18 11/23/18 11/23/18 20:31 20:45 21:00 21:15 Pulse 99 126 90 Resp 26 16 13 16 B/P (MAP) 128/99 (109) 132/83 (99) 130/105 (113) 128/95 (106) Pulse Ox 94 95 94 95 O2 Delivery Nasal Cannula Nasal Cannula O2 Flow Rate 2.5 2.5 11/23/18 11/23/18 11/23/18 11/23/18 21:30 21:45 22:00 22:15 Pulse 116 102 99 109 Resp 16 9 19 21 B/P (MAP) 137/99 (112) 138/118 (125) 132/105 (114) Pulse Ox 95 95 96 O2 Delivery Nasal Cannula O2 Flow Rate 2.5 11/23/18 11/23/18 22:15 22:45 Pulse 109 115 Resp 21 78 Physical Exam General Appearance: Alert, no acute distress. Eyes: Pupils equal and round, no injection. Extraocular movements are intact. Reactive to light. ENT: Normal oral mucosa. Mucous membranes are dry. Normal nasal mucosa. Tympanic membranes are normal. No facial tenderness. Neck: Neck is supple and non tender. Respiratory: Chest is non tender, lungs are clear to auscultation. Cardiac: regular rate and rhythm, normal pulses in upper and lower extremities. Gastrointestinal: Abdomen is soft, diffuse discomfort, but no focal tenderness, no masses, bowel sounds normal. Musculoskeletal: Extremities have full range of motion. Tender in low back to palpation midline and paraspinous across lumbar area. Pain with palpation around left hip and left knee, diffuse. Skin: No rashes. Has red area in sacral area, early pressure changes, but blanches and no skin breakdown. DIFFERENTIAL DIAGNOSIS: After history and physical exam differential diagnosis was considered for a patient with fall and pain in low back and left hip/knee. Will need to look for kidney problems and rhabdomyolysis. Medical Decision Making Data Points Result Diagram: 11/23/18191411/23/181914 Laboratory Hematology Test 11/23/18 19:15 11/23/18 19:35 Red Blood Count 5.07 M/uL (4.17-5.56) Mean Corpuscular Volume 82.1 fL (80.0-96.0) Mean Corpuscular Hemoglobin 26.1 pg (26.0-33.0) Mean Corpuscular Hemoglobin Concent 31.8 g/dL (32.0-36.0) Red Cell Distribution Width 18.3 % (11.5-14.5) Mean Platelet Volume 9.2 fL (7.2-11.1) Neutrophils (%) (Auto) 71.5 % (39.4-72.5) Lymphocytes (%) (Auto) 16.1 % (17.6-49.6) Monocytes (%) (Auto) 8.5 % (4.1-12.4) Eosinophils (%) (Auto) 2.2 % (0.4-6.7) Basophils (%) (Auto) 1.7 % (0.3-1.4) Nucleated RBC Relative Count (auto) 0.0 /100WBC Neutrophils # (Auto) 5.4 K/uL (2.0-7.4) Lymphocytes # (Auto) 1.2 K/uL (1.3-3.6) Monocytes # (Auto) 0.6 K/uL (0.3-1.0) Eosinophils # (Auto) 0.2 K/uL (0.0-0.5) Basophils # (Auto) 0.1 K/uL (0.0-0.1) Nucleated RBC Absolute Count (auto) 0.00 K/uL Sodium Level 139 mmol/L (137-145) Potassium Level 4.1 mmol/L (3.5-5.0) Chloride Level 105 mmol/L (98-107) Carbon Dioxide Level 26 mmol/L (22-31) Blood Urea Nitrogen 13 mg/dl (7-18) Creatinine 1.40 mg/dl (0.52-1.04) Glomerular Filtration Rate Calc 36.8 Random Glucose 200 mg/dl (75-110) Lactate 1.2 mmol/L (0.7-2.1) Calcium Level 9.7 mg/dl (8.4-10.2) Total Bilirubin 0.5 mg/dl (0.2-1.3) Aspartate Amino Transf (AST/SGOT) 21 U/L (0-35) Alanine Aminotransferase (ALT/SGPT) 26 U/L (0-56) Alkaline Phosphatase 112 U/L (0-126) Total Creatine Kinase 66 U/L (30-135) Total Protein 6.0 g/dl (6.3-8.2) Albumin 3.6 g/dl (3.5-5.0) Urine Color Mary Urine Clarity Turbid Urine pH 6.0 pH (4.8-9.5) Urine Specific [place] 1.015 Urine Protein 100 mg/dL (NEGATIVE) Urine Glucose (UA) 50 mg/dL (NEGATIVE) Urine Ketones 20 mg/dL (NEGATIVE) Urine Blood Large (NEGATIVE) Urine Nitrite Positive (NEGATIVE) Urine Bilirubin Negative (NEGATIVE) Urine Urobilinogen Negative mg/dL (0.2-1.9) Urine Leukocyte Esterase Moderate (NEGATIVE) Urine RBC 3056 /HPF (0-2/HPF) Urine WBC 2699 /HPF (0-5/HPF) Urine WBC Clumps Few /HPF Urine Squamous Epithelial Cells Many /LPF (NONE-FEW) Urine Bacteria Negative /HPF (NONE-FEW) Urine Mucus None /HPF (NONE-FEW) Urine Yeast (Budding) Moderate /HPF Chemistry Test 11/23/18 19:15 11/23/18 19:35 White Blood Count 7.6 k/uL (4.5-11.0) Red Blood Count 5.07 M/uL (4.17-5.56) Hemoglobin 13.2 g/dL (12.0-16.0) Hematocrit 41.6 % (34.0-47.0) Mean Corpuscular Volume 82.1 fL (80.0-96.0) Mean Corpuscular Hemoglobin 26.1 pg (26.0-33.0) Mean Corpuscular Hemoglobin Concent 31.8 g/dL (32.0-36.0) Red Cell Distribution Width 18.3 % (11.5-14.5) Platelet Count 353 K/uL (150-450) Mean Platelet Volume 9.2 fL (7.2-11.1) Neutrophils (%) (Auto) 71.5 % (39.4-72.5) Lymphocytes (%) (Auto) 16.1 % (17.6-49.6) Monocytes (%) (Auto) 8.5 % (4.1-12.4) Eosinophils (%) (Auto) 2.2 % (0.4-6.7) Basophils (%) (Auto) 1.7 % (0.3-1.4) Nucleated RBC Relative Count (auto) 0.0 /100WBC Neutrophils # (Auto) 5.4 K/uL (2.0-7.4) Lymphocytes # (Auto) 1.2 K/uL (1.3-3.6) Monocytes # (Auto) 0.6 K/uL (0.3-1.0) Eosinophils # (Auto) 0.2 K/uL (0.0-0.5) Basophils # (Auto) 0.1 K/uL (0.0-0.1) Nucleated RBC Absolute Count (auto) 0.00 K/uL Glomerular Filtration Rate Calc 36.8 Lactate 1.2 mmol/L (0.7-2.1) Calcium Level 9.7 mg/dl (8.4-10.2) Total Bilirubin 0.5 mg/dl (0.2-1.3) Aspartate Amino Transf (AST/SGOT) 21 U/L (0-35) Alanine Aminotransferase (ALT/SGPT) 26 U/L (0-56) Alkaline Phosphatase 112 U/L (0-126) Total Creatine Kinase 66 U/L (30-135) Total Protein 6.0 g/dl (6.3-8.2) Albumin 3.6 g/dl (3.5-5.0) Urine Color Mary Urine Clarity Turbid Urine pH 6.0 pH (4.8-9.5) Urine Specific [place] 1.015 Urine Protein 100 mg/dL (NEGATIVE) Urine Glucose (UA) 50 mg/dL (NEGATIVE) Urine Ketones 20 mg/dL (NEGATIVE) Urine Blood Large (NEGATIVE) Urine Nitrite Positive (NEGATIVE) Urine Bilirubin Negative (NEGATIVE) Urine Urobilinogen Negative mg/dL (0.2-1.9) Urine Leukocyte Esterase Moderate (NEGATIVE) Urine RBC 3056 /HPF (0-2/HPF) Urine WBC 2699 /HPF (0-5/HPF) Urine WBC Clumps Few /HPF Urine Squamous Epithelial Cells Many /LPF (NONE-FEW) Urine Bacteria Negative /HPF (NONE-FEW) Urine Mucus None /HPF (NONE-FEW) Urine Yeast (Budding) Moderate /HPF Urinalysis Test 11/23/18 19:35 Urine Color Mary Urine Clarity Turbid Urine pH 6.0 pH (4.8-9.5) Urine Specific [place] 1.015 Urine Protein 100 mg/dL (NEGATIVE) Urine Glucose (UA) 50 mg/dL (NEGATIVE) Urine Ketones 20 mg/dL (NEGATIVE) Urine Blood Large (NEGATIVE) Urine Nitrite Positive (NEGATIVE) Urine Bilirubin Negative (NEGATIVE) Urine Urobilinogen Negative mg/dL (0.2-1.9) Urine Leukocyte Esterase Moderate (NEGATIVE) Urine RBC 3056 /HPF (0-2/HPF) Urine WBC 2699 /HPF (0-5/HPF) Urine WBC Clumps Few /HPF Urine Squamous Epithelial Cells Many /LPF (NONE-FEW) Urine Bacteria Negative /HPF (NONE-FEW) Urine Mucus None /HPF (NONE-FEW) Urine Yeast (Budding) Moderate /HPF EKG/Imaging Imaging EXAMINATION: CT lumbar spine without IV contrast HISTORY: Fall. Low back pain. TECHNIQUE: Thin axial CT images of the lumbar spine were obtained without IV contrast, with sagittal and coronal 2D reconstructed images. One of the following dose optimization techniques was utilized in the performance of this exam: Automated exposure control; adjustment of the mA and/or kV according to the patient's size; or use of an iterative reconstruction technique. Specific details can be referenced in the facility's radiology CT exam operational policy. COMPARISON: CT abdomen/pelvis without contrast 10/28/2018. FINDINGS: There are 4 [id number] lumbar-type vertebral segments, with small riblets arising from what is considered the L1 vertebral body. The lumbar spine is negative for acute fracture or subluxation. Vertebral body height is maintained. Stable alignment along the lumbar spine. There is stable mild retrolisthesis of L3 on L4 measuring 3 mm, and of L4 on L5 measuring 4 mm. Stable multilevel spondylotic changes in the lumbar spine. There is severe disc space narrowing at the L2-L3 through L5-S1 interspaces with advanced degenerative endplate changes. There are posterior disc-osteophyte complexes at the L2-L3 through L4-L5 interspaces with at least moderate central canal narrowing at L2-L3 and likely severe central canal narrowing at L3-L4. Advanced facet arthropathy along the mid and lower lumbar facet joints. There have been prior decompressive laminectomies at L4 and L5. The paraspinal soft tissues are unremarkable by CT. Cholelithiasis. Extensive vascular calcifications. Normal caliber abdominal aorta. Sigmoid diverticulosis. Lobular uterus with fibroids. IMPRESSION: 1. No acute osseous findings along the lumbar spine. Stable alignment. 2. Advanced chronic multilevel spondylotic changes with severe disc space narrowing at the L2-L3 through L5-S1 interspaces. Prior decompressive laminectomies at L4 and L5. There is at least moderate central canal narrowing at L2-L3 and likely severe central canal narrowing at L3-L4. Report Dictated By: Hung Torres MD at 11/23/2018 8:48 PM EXAMINATION: AP pelvis with lateral view of the left hip HISTORY: Fall. Left hip pain. COMPARISON: 04/28/2018. FINDINGS: Bones of the left hip demonstrate normal alignment. No evidence of acute fracture or dislocation. The joint space is preserved. Remainder of the bony pelvis appears radiographically intact. Osteopenia. IMPRESSION: No acute osseous findings at the left hip. Report Dictated By: Hung Torres MD at 11/23/2018 8:41 PM EXAMINATION: Left knee 4 views HISTORY: Fall. Left knee pain. COMPARISON: 06/06/2018. FINDINGS: Bones of the left knee demonstrate normal alignment. No evidence of acute fracture or dislocation. Stable mild joint space narrowing in the medial compartment. The lateral joint space is preserved. Mild degenerative changes at the patellofemoral joint. Osteopenia. Surgical clips along the medial aspect of the lower leg. Small knee joint effusion on the lateral view. IMPRESSION: 1. No acute osseous findings at the left knee. 2. Stable chronic degenerative changes with a small knee joint effusion. Report Dictated By: Hung Torres MD at 11/23/2018 8:43 PM ED Course/Re-evaluation Clinical Indication for ER IV: Hydration, IV Access ED Course The patient's labs are fairly unremarkable. Has chronic but stable chronic kidney disease, not significantly changed from baseline. Has a normal Creatinine Kinase, no sign of rhabdo. Urine with changes that have been noted on workup with urology, but does not look like infection, culture will be obtained. She is able to get up and walk with her walker without assistance from the nursing, but generalized weakness. Discussed the case with our hospitalist, Dr. Pavel. She does not meet criteria for admission at this time. They had a long discussion with her during recent hospitalization regarding her living situation. She was in a [facility] and went home. She had financial and insurance problems with trying to get into assisted living. She is not interested in changing living situation right now, mainly because she feels it is impossible and instead would just like to return home, even with fall risk at this time. Decision to Disposition Date: Nov 23, 2018 Decision to Disposition Time: 22:48 Depart Departure Latest Vital Signs Vital Signs Date Time Temp Pulse Resp B/P (MAP) Pulse Ox O2 Delivery O2 Flow Rate FiO2 11/23/18 22:45 115 78 11/23/18 22:00 132/105 (114) 96 Nasal Cannula 2.5 11/23/18 19:02 98.5 Impression: Primary Impression: Weakness generalized Additional Impressions: Fall Contusion Condition: Improved Disposition: HOME OR SELF-CARE Referrals: KARIN MELENDEZ DO (PCP) Patient Instructions: Contusion in Adults (ED), Fall Prevention for Older Adults (ED) Additional Instructions: Increase fluid intake. No other changes. Recommend further consideration of different living situation given you risk of falls at home. Problem Qualifiers Additional Impressions: Fall Encounter type: initial encounter Qualified Codes: W19.XXXA - Unspecified fall, initial encounter Contusion Encounter type: initial encounter Contusion area: hip Laterality: left Qualified Codes: S70.02XA - Contusion of left hip, initial encounter FRAN DEY MD Nov 23, 2018 19:00
[~2018-11-23 19:01] MED LIST changes: -BUPR-136 PO
[2018-11-23] MEDS ORDERED: NS(*) 0.9% 1000 ML BAG 1,000 ML IV ONE (19:10)
[2018-11-23 19:27] LABS: PLATELET COUNT, AUTOMATED 353 K/uL (150-450)
--- NOTE | 2018-11-23 20:47 | RADIOLOGY IMAGING REPORT ---
FACILITY: [facility] - [place] PATIENT NAME: Elena Saunders : 1945 MR: [id number] V: [id number] EXAM DATE: ORDERING PHYSICIAN: FRAN DEY TECHNOLOGIST: Location: [facility] Patient: Elena Saunders : 1945 Visit/Account:[id number] Date of Sevice: 11/23/2018 EXAMINATION: AP pelvis with lateral view of the left hip HISTORY: Fall. Left hip pain. COMPARISON: 04/28/2018. FINDINGS: Bones of the left hip demonstrate normal alignment. No evidence of acute fracture or dislocation. The joint space is preserved. Remainder of the bony pelvis appears radiographically intact. Osteopenia. IMPRESSION: No acute osseous findings at the left hip. Report Dictated By: Hung Torres MD at 11/23/2018 8:41 PM Report E-Signed By: Hung Torres MD at 11/23/2018 8:43 PM WSN:[id number]
--- NOTE | 2018-11-23 20:48 | RADIOLOGY IMAGING REPORT ---
FACILITY: [facility] PATIENT NAME: Elena Saunders : 1945 MR: [id number] V: [id number] EXAM DATE: ORDERING PHYSICIAN: FRAN DEY TECHNOLOGIST: Location: [facility] [place] Patient: Elena Saunders : 1945 Visit/Account:[id number] Date of Sevice: 11/23/2018 EXAMINATION: Left knee 4 views HISTORY: Fall. Left knee pain. COMPARISON: 06/06/2018. FINDINGS: Bones of the left knee demonstrate normal alignment. No evidence of acute fracture or dislocation. Stable mild joint space narrowing in the medial compartment. The lateral joint space is preserved. Mi ld degenerative changes at the patellofemoral joint. Osteopenia. Surgical clips along the medial aspect of the lower leg. Small knee joint effusion on the lateral view. IMPRESSION: 1. No acute osseous findings at the left knee. 2. Stable chronic degenerative changes with a small knee joint effusion. Report Dictated By: Hung Torres MD at 11/23/2018 8:43 PM Report E-Signed By: Hung Torres MD at 11/23/2018 8:45 PM WSN:[id number]
--- NOTE | 2018-11-23 21:08 | RADIOLOGY IMAGING REPORT ---
FACILITY: [facility] [place] PATIENT NAME: Elena Saunders : 1945 MR: [id number] V: [id number] EXAM DATE: ORDERING PHYSICIAN: FRAN DEY TECHNOLOGIST: Location: [facility] - [place] Patient: Elena Saunders : 1945 Visit/Account:[id number] Date of Sevice: 11/23/2018 EXAMINATION: CT lumbar spine without IV contrast HISTORY: Fall. Low back pain. TECHNIQUE: Thin axial CT images of the lumbar spine were obtained without IV contrast, with sagitta l and coronal 2D reconstructed images. One of the following dose optimization techniques was utilized in the performance of this exam: Autom ated exposure control; adjustment of the mA and/or kV according to the patient's size; or use of an i terative reconstruction technique. Specific details can be referenced in the facility's radiology C T exam operational policy. COMPARISON: CT abdomen/pelvis without contrast 10/28/2018. FINDINGS: There are 4 [id number] lumbar-type vertebral segments, with small riblets arising from what is c onsidered the L1 vertebral body. The lumbar spine is negative for acute fracture or subluxation. Vertebral body height is maintained. Stable alignment along the lumbar spine. There is stable mild retrolisthesis of L3 on L4 measuring 3 mm, and of L4 on L5 measuring 4 mm. Stable multilevel spondylotic changes in the lumbar spine. There is severe disc space narrowing at th e L2-L3 through L5-S1 interspaces with advanced degenerative endplate changes. There are posterior di sc-osteophyte complexes at the L2-L3 through L4-L5 interspaces with at least moderate central canal n arrowing at L2-L3 and likely severe central canal narrowing at L3-L4. Advanced facet arthropathy nichol g the mid and lower lumbar facet joints. There have been prior decompressive laminectomies at L4 and L5. The paraspinal soft tissues are unremarkable by CT. Cholelithiasis. Extensive vascular calcifications. Normal caliber abdominal aorta. Sigmoid diverticul osis. Lobular uterus with fibroids. IMPRESSION: 1. No acute osseous findings along the lumbar spine. Stable alignment. 2. Advanced chronic multilevel spondylotic changes with severe disc space narrowing at the L2-L3 thro ugh L5-S1 interspaces. Prior decompressive laminectomies at L4 and L5. There is at least moderate sandi tral canal narrowing at L2-L3 and likely severe central canal narrowing at L3-L4. Report Dictated By: Hung Torres MD at 11/23/2018 8:48 PM Report E-Signed By: Hung Torres MD at 11/23/2018 9:05 PM WSN:[id number]
[2018-11-23 22:00] VITALS: BP 132/105
== END 2018-11-23 23:15 | disposition home or self-care (01) ==
LOC: ER 19:04
DX: R53.1 Weakness (principal); S70.02XA Contusion of left hip, initial encounter; W19.XXXA Unspecified fall, initial encounter
CPT/HCPCS: 72131; 73502; 73564; 81001; 82550; 83605; 85025; 96360; 99284; C1758; J7030; 82040; 82247; 82310; 82374; 82435; 82565; 82947; 84075; 84132; 84155; 84295; 84450; 84460; 84520; 87088

== ENCOUNTER → 2018-11-23 | Outpatient (CLI) | payer MEDICARE, OTHER ==
[2018-10-29 11:41] VITALS: BMI 22.9
[~2018-11-23] MED LIST changes: +BUPR-136 PO; +CEPH500T7 PO
== END ==
LOC: AMB 18:39
PROVIDERS: ATTEND Nurse Practitioner
DX: M25.552 Pain in left hip (principal); R53.1 Weakness; R53.83 Other fatigue; W19.XXXA Unspecified fall, initial encounter
CPT/HCPCS: A0425; A0427

== ENCOUNTER → 2018-11-23 | Outpatient (CLI) | payer MEDICARE, OTHER ==
[2018-10-29 11:41] VITALS: BMI 22.9
== END ==
LOC: AMB 23:08
PROVIDERS: ATTEND Nurse Practitioner
DX: R53.1 Weakness (principal)
CPT/HCPCS: A0425; A0428

== ENCOUNTER 2018-11-29 11:07 | Inpatient (IN) | payer MEDICARE, OTHER ==
[~2018-11-29] VITALS: Ht 170.2 cm; Wt 70.0 kg
[~2018-11-29 11:07] MED LIST changes: -BUPR-136 PO
[2018-11-29] MEDS ORDERED: NS(*) 0.9% 500 ML BAG 500 ML IV ONE (11:35)
--- NOTE | 2018-11-29 12:06 | EKG ---
FACILITY: [facility] PATIENT NAME: ELIZABETH ROD : [id number] MR: [id number] V: [id number] EXAM DATE: ORDERING PHYSICIAN: MARCELINA PIRES TECHNOLOGIST: Test Reason : Blood Pressure : / mmHG Vent. Rate : 054 BPM Atrial Rate : 025 BPM P-R Int : 000 ms QRS Dur : 098 ms QT Int : 406 ms P-R-T Axes : 000 109 -77 degrees QTc Int : 385 ms Atrial fibrillation Septal infarct , age undetermined ST and T wave abnormality, consider inferolateral ischemia or digitalis effect Abnormal ECG When compared with ECG of 28-OCT-2018 12:54, Vent. rate has decreased BY 63 BPM Septal infarct is now present ST no longer depressed in Inferior leads Confirmed by YARELI GALAVIZ ([id number]) on 11/30/2018 6:38:27 AM Referred By: Confirmed By:YARELI GALAVIZ
[2018-11-29 12:07] LABS: PLATELET COUNT, AUTOMATED 331 K/uL (150-450)
--- NOTE | 2018-11-29 12:19 | RADIOLOGY IMAGING REPORT ---
[facility] PATIENT NAME: Elena Saunders : 1945 MR: [id number] V: [id number] EXAM DATE: [id number] ORDERING PHYSICIAN: MARCELINA PIRES TECHNOLOGIST: Location: [facility] Patient: Elena Saunders : 1945 Visit/Account:[id number] Date of Sevice: 11/29/2018 CT Head without contrast Indication: Dizziness. Comparison: 06/06/2018. Technique: Axial CT images were obtained through the brain from the skull base to the vertex without administration of IV contrast. Reformatted coronal and sagittal images were also obtained. One of the following dose optimization techniques was utilized in the performance of this exam: autom ated exposure control; adjustment of the mA and/or kV according to the patient's size; or use of an i terative reconstruction technique. Specific details can be referenced in the facility's radiology CT exam operational policy. Findings: No evidence of mass, mass effect, or midline shift. No acute intracranial hemorrhage or acute territorial infarction. No extra-axial fluid collection or hydrocephalus. Age-related cerebral atrophy. Periventricular white matter ischemic changes consistent small vessel disease which appears similar. 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 Preston/white matter differentiation appears normal. Bony structures show no fractures or lesions. Mild leftward deviation nasal septum. The visualized paranasal sinuses and mastoid air cells are clear. IMPRESSION: 1. Continued senescent changes without acute abnormality. Report Dictated By: Venkatesh Tse at 11/29/2018 12:09 PM Report E-Signed By: Venkatesh Tse at 11/29/2018 12:16 PM WSN:[id number]
[2018-11-29] MEDS ORDERED: NITROFURANTOIN MONO 100 MG PO ONE (13:55)
[2018-11-29] MEDS ORDERED: cefTRIAXone 1 GM VIAL IVP ONE (14:40)
[2018-11-29 15:37] VITALS: BP 125/62
--- NOTE | 2018-11-29 15:39 | ER Report ---
History and Physical Time Seen By MD: 11:15 Hx. of Stated Complaint: FOUND UNCONSCIOUS - RESPONSIVE TO PAINFUL STIMULI. PT ARRIVES ALERT TO VERBAL STIMULI. ANSWERING SLOWLY BUT APPROPRIATELY. HPI/ROS 73 y/o female with multiple medical problems to include multiple urinary tract infections as well as admissions for failure to thrive. Police went to her home today after family called for a welfare check. Police called paramedics when they found the patient somewhat "unresponsive" on her couch. The paramedics said she was awake but not alert. The patient states that she just wants to "sleep." She denies SI or HI. She states that she is out of all of her meds. I asked her is she is depressed, and she said, "[facility] She has no complaints other than feeling tired. She thinks she has a UTI, b/c someone told her. She doesn't know if she is supposed to take antibiotics. She states that she is too weak to perform ADLs. Denies CP or SOB. No abdominal pain. Allergies: Coded Allergies: ketorolac (Verified Allergy, Severe, COULD NOT SEE, N&V, THOUGHT SHE WAS GOING TO , 11/29/18) ibuprofen (Verified Adverse Reaction, Unknown, DIZZINESS, NAUSEA, VOMITING, 11/29/18) Home Meds Active Scripts Cephalexin 500 Mg Tab (KEFLEX 500 MG TAB) 500 Mg Tablet, 500 MG PO BID, #14 TAB Prov:LINDSEY NORRIS V DO 11/21/18 Phenazopyridine Hcl (PHENAZOPYRIDINE HCL) 200 Mg Tablet, 200 MG PO Q8H PRN for DISCOMFORT, #9 TAB Prov:LINDSEY NORRIS V DO 11/21/18 Nitrofurantoin Monohyd/M-Cryst (NITROFURANTOIN MONO-MCR 100 MG) 100 Mg Capsule, 50 MG PO QHS for UTI prophylaxis, #30 CAPSULE 3 Refills Prov:MACHELLE ISBELL MD 11/19/18 Amlodipine Besylate (AMLODIPINE BESYLATE) 5 Mg Tablet, 5 MG PO QDAY, #30 TAB Prov:MARIAJOSE RODARTEP 11/05/18 Tamsulosin Hcl (FLOMAX) 0.4 Mg Cap.er.24h, 0.4 MG PO DAILY, #30 CAP Prov:MARIAJOSE RODARTEP 11/05/18 Digoxin (Digox) 125 Mcg Tablet, 0.125 MG PO QDAY, #30 TAB Prov:MARIAJOSE RODARTE MEDICAL IMAGING TECH 09/11/18 Carvedilol (CARVEDILOL) 25 Mg Tablet, 25 MG PO BID, #60 TAB Prov:MARIAJOSE RODARTE MEDICAL IMAGING TECH 09/11/18 Gabapentin (GABAPENTIN) 300 Mg Capsule, 300 MG PO BID, #60 CAPSULE Prov:MARIAJOSE RODARTE MEDICAL IMAGING TECH 07/18/18 Tramadol Hcl (TRAMADOL HCL) 50 Mg Tablet, 50 MG PO Q6H PRN for PAIN, #60 TAB Prov:MARIAJOSE RODARTE MEDICAL IMAGING TECH 07/18/18 Mirabegron (MYRBETRIQ) 50 Mg Tab.er.24h, 50 MG PO DAILY for overactive bladder for 30 Days, #30 CAP 3 Refills Prov:MACHELLE ISBELL MD 06/18/18 Reported Medications Vitamins A and D (Sween Cream) 85 Gm Cream..g., TOP QDAY PRN for ITCHING 09/09/18 Rivaroxaban 15 Mg (XARELTO 15 MG) 15 Mg Tablet, 15 MG PO QDAY, TAB 09/09/18 Glucosamine Sulfate 2KCL (GLUCOSAMINE) 1,000 Mg Tablet, 1000 MG PO BID 09/09/18 Insulin Lispro 100 Un/Ml Pen (HUMALOG 3 ML PEN) 100 Unit/1 Ml Insuln.pen, 100 UNIT SQ DIRECTED, DIS.SYR 09/08/18 Acetaminophen (TYLENOL) 325 Mg Tablet, 650 MG PO Q6H PRN for PAIN, TAB 09/08/18 Potassium Chloride (POTASSIUM CHLORIDE) 10 Meq Capsule.er, 10 MEQ PO DAILY 09/08/18 Bupropion HCl (Bupropion HCl ER) 200 Mg Tablet.er, 150 MG PO BID 09/08/18 Furosemide (LASIX) 40 Mg Tablet, 1 TAB PO DAILY, TAB 09/07/18 Melatonin (MELATONIN) 3 Mg Tablet, 3 MG PO HS 08/02/18 Atorvastatin Calcium (ATORVASTATIN CALCIUM) 20 Mg Tablet, 1 TAB PO QDAY, TAB 07/06/18 Oxygen (OXYGEN) Inha, 3 L INH, L 06/18/17 Lysine (LYSINE) 500 Mg Tablet, 500 MG PO BID 04/27/16 Cranberry Extract (CRANBERRY) 200 Mg Capsule, 200 MG PO BID, CAPSULE 11/11/14 Multivitamin (MULTI VITAMIN DAILY) 1 Each Tablet, 1 EACH PO QDAY 04/14/14 Nph, Human Insulin Isophane (HUMULIN N) 100 Unit/1 Ml Vial, 40 UNIT SQ BID 03/04/12 Reviewed Nurses Notes: Yes Old Medical Records Reviewed: Yes Hx Smoking: No Smoking Status: Never Smoker Exposure to Second Hand Smoke?: Yes (daugher smokes) Hx Substance Use Disorder: No Hx Alcohol Use: No Constitutional Vital Sign - Last 24 Hours 11/29/18 11/29/18 11/29/18 11/29/18 11:08 11:16 11:20 11:30 Temp 98.5 Pulse 57 54 Resp 20 15 B/P (MAP) 135/64 139/63 (88) Pulse Ox 98 84 O2 Delivery Non-Rebreather O2 Flow Rate 3.0 3.0 11/29/18 11/29/18 11/29/18 11/29/18 12:00 12:30 13:00 13:30 Pulse 68 49 51 Resp 17 10 7 11 B/P (MAP) 133/67 (89) 143/60 (87) 135/55 (81) 141/56 (84) Pulse Ox 85 95 96 100 11/29/18 14:00 Pulse 65 Resp 12 B/P (MAP) 135/55 (81) Pulse Ox 80 Physical Exam General Appearance: The patient is alert, has no immediate need for airway protection and no signs of toxicity. Eyes: Pupils equal and round no pallor or injection. ENT, Mouth: Mucous membranes are moist. Respiratory: There are no retractions, lungs are clear to auscultation. Cardiovascular: Irregular rate and rhythm Gastrointestinal: Abdomen is soft and non tender, no masses, bowel sounds normal. Neurological: Awakens with voice, and will hold a conversation. Otherwise sleeping. Strength and sensation grossly in tact. Skin: Warm and dry, no rashes. Musculoskeletal: Neck is supple non tender. Extremities are nontender, nonswollen and have full range of motion. DIFFERENTIAL DIAGNOSIS: After history and physical exam differential diagnosis was considered for altered mental status including but not limited to hypoglycemia, infectious process, electrolyte abnormality, head injury and intoxicants. Medical Decision Making Data Points Result Diagram: 11/29/18 1113 11/29/18 1113 Laboratory Hematology Test 11/29/18 00:00 11/29/18 11:13 11/29/18 11:22 11/29/18 11:27 Magnesium Level 2.0 mg/dl (1.7-2.2) Thyroid Stimulating Hormone (TSH) 1.19 uIU/ml (0.46-4.68) Digoxin Level 2.1 ng/ml Digoxin Last Dose Date Unk Digoxin Last Dose Time Unk Salicylates Level < 10 mg/L Salicylate Last Dose Date Unk Urine Opiates Screen Negative Acetaminophen Level < 10 ug/ml Urine Barbiturates Screen Negative Ur Tricyclic Antidepressants Screen Negative Urine Phencyclidine Screen Negative Urine Amphetamines Screen Negative Urine Benzodiazepines Screen Negative Urine Cocaine Screen Negative Urine Cannabinoids Screen Negative Serum Alcohol < 10 mg/dl Red Blood Count 4.47 M/uL (4.17-5.56) Mean Corpuscular Volume 83.9 fL (80.0-96.0) Mean Corpuscular Hemoglobin 25.6 pg (26.0-33.0) Mean Corpuscular Hemoglobin Concent 30.6 g/dL (32.0-36.0) Red Cell Distribution Width 18.4 % (11.5-14.5) Mean Platelet Volume 9.0 fL (7.2-11.1) Neutrophils (%) (Auto) 67.9 % (39.4-72.5) Lymphocytes (%) (Auto) 21.4 % (17.6-49.6) Monocytes (%) (Auto) 7.8 % (4.1-12.4) Eosinophils (%) (Auto) 1.9 % (0.4-6.7) Basophils (%) (Auto) 1.0 % (0.3-1.4) Nucleated RBC Relative Count (auto) 0.0 /100WBC Neutrophils # (Auto) 4.1 K/uL (2.0-7.4) Lymphocytes # (Auto) 1.3 K/uL (1.3-3.6) Monocytes # (Auto) 0.5 K/uL (0.3-1.0) Eosinophils # (Auto) 0.1 K/uL (0.0-0.5) Basophils # (Auto) 0.1 K/uL (0.0-0.1) Nucleated RBC Absolute Count (auto) 0.00 K/uL Sodium Level 140 mmol/L (137-145) Potassium Level 4.3 mmol/L (3.5-5.0) Chloride Level 108 mmol/L (98-107) Carbon Dioxide Level 27 mmol/L (22-31) Blood Urea Nitrogen 20 mg/dl (7-18) Creatinine 1.70 mg/dl (0.52-1.04) Glomerular Filtration Rate Calc 29.4 Random Glucose 139 mg/dl (75-110) Calcium Level 9.7 mg/dl (8.4-10.2) Total Bilirubin 0.3 mg/dl (0.2-1.3) Aspartate Amino Transf (AST/SGOT) 23 U/L (0-35) Alanine Aminotransferase (ALT/SGPT) 27 U/L (0-56) Alkaline Phosphatase 93 U/L (0-126) Total Protein 5.8 g/dl (6.3-8.2) Albumin 3.5 g/dl (3.5-5.0) Lactate 0.9 mmol/L (0.7-2.1) Urine Color Mary Urine Clarity Cloudy Urine pH 5.0 pH (4.8-9.5) Urine Specific [place] 1.023 Urine Protein 100 mg/dL (NEGATIVE) Urine Glucose (UA) Negative mg/dL (NEGATIVE) Urine Ketones Negative mg/dL (NEGATIVE) Urine Blood Large (NEGATIVE) Urine Nitrite Positive (NEGATIVE) Urine Bilirubin Negative (NEGATIVE) Urine Urobilinogen 0.2 mg/dL (0.2-1.9) Urine Leukocyte Esterase Trace (NEGATIVE) Urine RBC 3303 /HPF (0-2/HPF) Urine WBC 283 /HPF (0-5/HPF) Urine Squamous Epithelial Cells None /LPF (NONE-FEW) Urine Bacteria Negative /HPF (NONE-FEW) Urine Mucus None /HPF (NONE-FEW) Chemistry Test 11/29/18 00:00 11/29/18 11:13 11/29/18 11:22 11/29/18 11:27 Magnesium Level 2.0 mg/dl (1.7-2.2) Thyroid Stimulating Hormone (TSH) 1.19 uIU/ml (0.46-4.68) Digoxin Level 2.1 ng/ml Digoxin Last Dose Date Unk Digoxin Last Dose Time Unk Salicylates Level < 10 mg/L Salicylate Last Dose Date Unk Urine Opiates Screen Negative Acetaminophen Level < 10 ug/ml Urine Barbiturates Screen Negative Ur Tricyclic Antidepressants Screen Negative Urine Phencyclidine Screen Negative Urine Amphetamines Screen Negative Urine Benzodiazepines Screen Negative Urine Cocaine Screen Negative Urine Cannabinoids Screen Negative Serum Alcohol < 10 mg/dl White Blood Count 6.1 k/uL (4.5-11.0) Red Blood Count 4.47 M/uL (4.17-5.56) Hemoglobin 11.5 g/dL (12.0-16.0) Hematocrit 37.5 % (34.0-47.0) Mean Corpuscular Volume 83.9 fL (80.0-96.0) Mean Corpuscular Hemoglobin 25.6 pg (26.0-33.0) Mean Corpuscular Hemoglobin Concent 30.6 g/dL (32.0-36.0) Red Cell Distribution Width 18.4 % (11.5-14.5) Platelet Count 331 K/uL (150-450) Mean Platelet Volume 9.0 fL (7.2-11.1) Neutrophils (%) (Auto) 67.9 % (39.4-72.5) Lymphocytes (%) (Auto) 21.4 % (17.6-49.6) Monocytes (%) (Auto) 7.8 % (4.1-12.4) Eosinophils (%) (Auto) 1.9 % (0.4-6.7) Basophils (%) (Auto) 1.0 % (0.3-1.4) Nucleated RBC Relative Count (auto) 0.0 /100WBC Neutrophils # (Auto) 4.1 K/uL (2.0-7.4) Lymphocytes # (Auto) 1.3 K/uL (1.3-3.6) Monocytes # (Auto) 0.5 K/uL (0.3-1.0) Eosinophils # (Auto) 0.1 K/uL (0.0-0.5) Basophils # (Auto) 0.1 K/uL (0.0-0.1) Nucleated RBC Absolute Count (auto) 0.00 K/uL Glomerular Filtration Rate Calc 29.4 Calcium Level 9.7 mg/dl (8.4-10.2) Total Bilirubin 0.3 mg/dl (0.2-1.3) Aspartate Amino Transf (AST/SGOT) 23 U/L (0-35) Alanine Aminotransferase (ALT/SGPT) 27 U/L (0-56) Alkaline Phosphatase 93 U/L (0-126) Total Protein 5.8 g/dl (6.3-8.2) Albumin 3.5 g/dl (3.5-5.0) Lactate 0.9 mmol/L (0.7-2.1) Urine Color Mary Urine Clarity Cloudy Urine pH 5.0 pH (4.8-9.5) Urine Specific [place] 1.023 Urine Protein 100 mg/dL (NEGATIVE) Urine Glucose (UA) Negative mg/dL (NEGATIVE) Urine Ketones Negative mg/dL (NEGATIVE) Urine Blood Large (NEGATIVE) Urine Nitrite Positive (NEGATIVE) Urine Bilirubin Negative (NEGATIVE) Urine Urobilinogen 0.2 mg/dL (0.2-1.9) Urine Leukocyte Esterase Trace (NEGATIVE) Urine RBC 3303 /HPF (0-2/HPF) Urine WBC 283 /HPF (0-5/HPF) Urine Squamous Epithelial Cells None /LPF (NONE-FEW) Urine Bacteria Negative /HPF (NONE-FEW) Urine Mucus None /HPF (NONE-FEW) Toxicology Test 11/29/18 00:00 Digoxin Level 2.1 ng/ml Digoxin Last Dose Date Unk Digoxin Last Dose Time Unk Salicylates Level < 10 mg/L Salicylate Last Dose Date Unk Urine Opiates Screen Negative Acetaminophen Level < 10 ug/ml Urine Barbiturates Screen Negative Ur Tricyclic Antidepressants Screen Negative Urine Phencyclidine Screen Negative Urine Amphetamines Screen Negative Urine Benzodiazepines Screen Negative Urine Cocaine Screen Negative Urine Cannabinoids Screen Negative Serum Alcohol < 10 mg/dl Urinalysis Test 11/29/18 11:27 Urine Color Mary Urine Clarity Cloudy Urine pH 5.0 pH (4.8-9.5) Urine Specific [place] 1.023 Urine Protein 100 mg/dL (NEGATIVE) Urine Glucose (UA) Negative mg/dL (NEGATIVE) Urine Ketones Negative mg/dL (NEGATIVE) Urine Blood Large (NEGATIVE) Urine Nitrite Positive (NEGATIVE) Urine Bilirubin Negative (NEGATIVE) Urine Urobilinogen 0.2 mg/dL (0.2-1.9) Urine Leukocyte Esterase Trace (NEGATIVE) Urine RBC 3303 /HPF (0-2/HPF) Urine WBC 283 /HPF (0-5/HPF) Urine Squamous Epithelial Cells None /LPF (NONE-FEW) Urine Bacteria Negative /HPF (NONE-FEW) Urine Mucus None /HPF (NONE-FEW) ED Course/Re-evaluation ED Course Failure to thrive, UTI with history of multiple resistant infections. Worsening renal failure. Inability to perform ADLs. Pt. denies SI, but admits that she can not care for herself any longer at home alone. Urine culture has been sent. Given IV Rocephin. Will admit for IV abx, treatment with fluids for renal failure, and possible mcc placement. Decision to Disposition Date: Nov 29, 2018 Decision to Disposition Time: 15:38 Depart Departure Latest Vital Signs Vital Signs Date Time Temp Pulse Resp B/P (MAP) Pulse Ox O2 Delivery O2 Flow Rate FiO2 11/29/18 14:00 65 12 135/55 (81) 80 11/29/18 11:20 3.0 11/29/18 11:08 98.5 Non-Rebreather Impression: Primary Impression: Urinary tract infection Additional Impressions: Weakness generalized Failure to thrive Condition: Improved Disposition: Admitted from ER Referrals: KARIN MELENDEZ DO (PCP) Problem Qualifiers Primary Impression: Urinary tract infection Urinary tract infection type: acute cystitis Hematuria presence: with hematuria Qualified Codes: N30.01 - Acute cystitis with hematuria Additional Impressions: Failure to thrive Failure to thrive age range: in adult Qualified Codes: R62.7 - Adult failure to thrive MARCELINA PIRES MD Nov 29, 2018 15:39
[2018-11-29] MEDS: INSULIN HUM LISPRO 100 UN/ML 3 ML VIAL SUBQ PRN ×2 (17:27→22:30)
[2018-11-29] MEDS: NS(*) 0.9% 1000 ML BAG 1,000 ML IV PRN (17:31)
[2018-11-29 19:32] VITALS: BP 119/41
--- NOTE | 2018-11-29 20:05 | History & Physical ---
History of Present Illness Chief Complaint Weakness, confusion. History of Present Illness The patient is a 73 year old female well known to the hospitalist service who was recently discharged from [facility] on 11/05/18 after an inpatient stay for failure to thrive and urinary tract infection. The patient had previously been at the [facility] ([facility]) but checked herself out. At the time of her discharge on 11/05/18, it was recommended that the patient go back to [facility] or to [facility]. She apparently refused to go the [facility] and could not afford to go to [facility]. The patient is not a good historian as she is confused and unable to give details of recent events. She was instructed to follow up with urology after her last discharge for thickening of the bladder wall and can not remember if she made an appointment. Per the EMR, she has not seen Dr. Isbell who is her urologist. She also can not remember if she has been taking her medications. She believes she ran out. She had Home Health at discharge but is not clear if they are still coming or if they are helping with her medications. She states her daughter used to help her but "is mad at her" currently. The patient is not sure how well she has been eating or drinking. She has been laying on the couch a lot. She states she falls a lot. Per the EMR, she was in the ER on November 23 after a fall. The patient does notes she has recently had burning with urinati on. She also complains of dizziness which she attributes to not having her glasses, but states it gets worse any time she moves her head. Per the ER physician, today the patient's daughter called to check on her today and did not get an answer. Police were sent to her home for a welfare check. Oliver bowie called paramedics when they found the patient somewhat "unresponsive" on her couch. The paramedics said she was awake but not alert. The patient also reported to the ER staff that she is out of all of her meds. She thought she ordered them but can't remember for sure. She stated that she has been too weak to perform ADLs. History Problems: (1) Hx of CABG Status: Chronic (2) Hx of lumbosacral spine surgery Status: Chronic (3) Hx of cataract extraction Status: Chronic (4) Hx of tonsillectomy Status: Chronic (5) Follicular non-Hodgkin's lymphoma Status: Chronic (6) Failure to thrive syndrome, adult Status: Chronic (7) Urinary tract infection Status: Acute Comment: Recurrent. (8) Fall Status: Chronic Comment: Recurrent. (9) Uterine fibroid Status: Chronic (10) Bladder wall thickening Status: Chronic (11) HTN (hypertension) Status: Chronic (12) Heart failure with reduced ejection fraction Status: Chronic (13) CHRONIC ATRIAL FIBRILLATION Status: Chronic (14) Ribs, multiple fractures Status: Resolved (15) CKD (chronic kidney disease) stage 3, GFR 30-59 ml/min Status: Chronic (16) GI bleed Status: Resolved (17) Type II diabetes mellitus Status: Chronic (18) CAD (coronary artery disease) Status: Chronic (19) Hypogammaglobulinemia Status: Chronic (20) Anemia Status: Chronic (21) Pulmonary nodule Status: Chronic Home Meds Active Scripts Cephalexin 500 Mg Tab (KEFLEX 500 MG TAB) 500 Mg Tablet, 500 MG PO BID, #14 TAB Prov:LINDSEY NORRIS V DO 11/21/18 Phenazopyridine Hcl (PHENAZOPYRIDINE HCL) 200 Mg Tablet, 200 MG PO Q8H PRN for DISCOMFORT, #9 TAB Prov:LINDSEY NORRIS V DO 11/21/18 Nitrofurantoin Monohyd/M-Cryst (NITROFURANTOIN MONO-MCR 100 MG) 100 Mg Capsule, 50 MG PO QHS for UTI prophylaxis, #30 CAPSULE 3 Refills Prov:MACHELLE ISBELL MD 11/19/18 Amlodipine Besylate (AMLODIPINE BESYLATE) 5 Mg Tablet, 5 MG PO QDAY, #30 TAB Prov:MARIAJOSE RODARTEP 11/05/18 Tamsulosin Hcl (FLOMAX) 0.4 Mg Cap.er.24h, 0.4 MG PO DAILY, #30 CAP Prov:MARIAJOSE RODARTE 11/05/18 Digoxin (Digox) 125 Mcg Tablet, 0.125 MG PO QDAY, #30 TAB Prov:MARIAJOSE RODARTEP 09/11/18 Carvedilol (CARVEDILOL) 25 Mg Tablet, 25 MG PO BID, #60 TAB Prov:MARIAJOSE RODARTEP 09/11/18 Gabapentin (GABAPENTIN) 300 Mg Capsule, 300 MG PO BID, #60 CAPSULE Prov:MARIAJOSE RODARTE OUTSIDE INSTALLER APPRENTICE 07/18/18 Tramadol Hcl (TRAMADOL HCL) 50 Mg Tablet, 50 MG PO Q6H PRN for PAIN, #60 TAB Prov:MARIAJOSE RODARTE OUTSIDE INSTALLER APPRENTICE 07/18/18 Mirabegron (MYRBETRIQ) 50 Mg Tab.er.24h, 50 MG PO DAILY for overactive bladder for 30 Days, #30 CAP 3 Refills Prov:MACHELLE ISBELL MD 06/18/18 Reported Medications Bupropion Hcl (BUPROPION HCL SR) 150 Mg Tablet.er, 150 MG PO BID 11/29/18 Vitamins A and D (Sween Cream) 85 Gm Cream..g., TOP QDAY PRN for ITCHING 09/09/18 Rivaroxaban 15 Mg (XARELTO 15 MG) 15 Mg Tablet, 15 MG PO QDAY, TAB 09/09/18 Glucosamine Sulfate 2KCL (GLUCOSAMINE) 1,000 Mg Tablet, 1000 MG PO BID 09/09/18 Acetaminophen (TYLENOL) 325 Mg Tablet, 650 MG PO Q6H PRN for PAIN, TAB 09/08/18 Potassium Chloride (POTASSIUM CHLORIDE) 10 Meq Capsule.er, 10 MEQ PO DAILY 09/08/18 Furosemide (LASIX) 40 Mg Tablet, 1 TAB PO DAILY, TAB 09/07/18 Melatonin (MELATONIN) 3 Mg Tablet, 3 MG PO HS 08/02/18 Atorvastatin Calcium (ATORVASTATIN CALCIUM) 20 Mg Tablet, 1 TAB PO QDAY, TAB 07/06/18 Oxygen (OXYGEN) Inha, 3 L INH, L 06/18/17 Lysine (LYSINE) 500 Mg Tablet, 500 MG PO BID 04/27/16 Cranberry Extract (CRANBERRY) 200 Mg Capsule, 200 MG PO BID, CAPSULE 11/11/14 Multivitamin (MULTI VITAMIN DAILY) 1 Each Tablet, 1 EACH PO QDAY 04/14/14 Nph, Human Insulin Isophane (HUMULIN N) 100 Unit/1 Ml Vial, 40 UNIT SQ BID 03/04/12 Discontinued Reported Medications Insulin Lispro 100 Un/Ml Pen (HUMALOG 3 ML PEN) 100 Unit/1 Ml Insuln.pen, 100 UNIT SQ DIRECTED, DIS.SYR 09/08/18 Bupropion HCl (Bupropion HCl ER) 200 Mg Tablet.er, 150 MG PO BID 09/08/18 Allergies: Coded Allergies: ketorolac (Verified Allergy, Severe, COULD NOT SEE, N&V, THOUGHT SHE WAS GOING TO , 11/29/18) ibuprofen (Verified Adverse Reaction, Unknown, DIZZINESS, NAUSEA, VOMITING, 11/29/18) Patient History: FH: type 2 diabetes mellitus CHILD UTI (urinary tract infection) MOTHER (CKD), , Age:92 Other Social/Family Hx The patient lives alone currently. She previously resided at [facility] for a time. She is . She has a daughter in town who checks on her regularly. Hx Smoking: No Smoking Status: Never Smoker Exposure to Second Hand Smoke?: Yes Caffeine Intake: Soda Caffeine/Cups Per Day: Diet Pepsi Hx Alcohol Use: No Hx Substance Use Disorder: No Social Drug Use: Never History of IV Drug Use: No Review of Systems Constitutional: No Fever Neurological: Weakness, Dizziness Eyes: No Vision Change Cardiovascular: No Chest Pain Respiratory: No Shortness of Breath Gastrointestinal: No Vomiting Genitourinary: Dysuria Musculoskeletal: No Pain Psychiatric: No Depression Exam Vital Signs Vital Signs Date Time Temp Pulse Resp B/P (MAP) Pulse Ox O2 Delivery O2 Flow Rate FiO2 11/29/18 20:08 92 Nasal Cannula 1.0 11/29/18 19:32 97.9 56 16 119/41 (67) General Appearance: No Acute Distress, Other (Alert but confused.) Neuro: Other (Confused. Poor short term memory. Moves all extremities. No difficulty with speech. ) Eyes: PERRLA Cardiovascular: Other (Irregularly irregular with soft AL.) Respiratory: Clear to Auscultation GI: Other (Soft, nondistended. Tender over bladder.) Lymph: Cervical Nodes Benign Extremities: Warm, Perfused, Edema Integumentary: Generalized Fragile Skin, Other (Pressure wound over sacrum/coccyx. Center of wound with open area which is superficial.) Medical Decision Making Data Points Result Diagram: 11/29/18 1113 11/29/18 1113 Item Value Date Time Urine Color Mary 11/29/18 1127 Urine Clarity Cloudy 11/29/18 1127 Urine pH 5.0 pH 11/29/18 1127 Urine Specific Ada 1.023 11/29/18 1127 Urine Protein 100 mg/dL 11/29/18 1127 Urine Glucose (UA) Negative mg/dL 11/29/18 1127 Urine Ketones Negative mg/dL 11/29/18 1127 Urine Blood Large 11/29/18 1127 Urine Nitrite Positive H 11/29/18 1127 Urine Bilirubin Negative 11/29/18 1127 Urine Urobilinogen 0.2 mg/dL 11/29/18 1127 Urine Leukocyte Esterase Trace H 11/29/18 1127 Urine RBC 3303 /HPF 11/29/18 1127 Urine WBC 283 /HPF 11/29/18 1127 Urine Squamous Epithelial Cells None /LPF 11/29/18 1127 Urine Bacteria Negative /HPF 11/29/18 1127 Urine Mucus None /HPF 11/29/18 1127 Item Value Date Time Digoxin Level 0.8 ng/ml 08/30/17 0820 Stool Occult Blood (IFOB) Positive H 08/30/17 0900 Urine Color Mary 08/30/17 0820 Urine Clarity Clear 08/30/17 0820 Urine pH 6.0 pH 08/30/17 0820 Urine Specific Ada 1.010 08/30/17 0820 Urine Protein 100 mg/dL 08/30/17 0820 Urine Glucose (UA) Negative mg/dL 08/30/17 0820 Urine Ketones Negative mg/dL 08/30/17 0820 Urine Blood Moderate 08/30/17 0820 Urine Nitrite Positive H 08/30/17 0820 Urine Bilirubin Negative 08/30/17 0820 Urine Urobilinogen 4.0 mg/dL H 08/30/17 0820 Urine Leukocyte Esterase Trace H 08/30/17 0820 Urine RBC 92 /HPF 08/30/17 0820 Urine WBC 113 /HPF 08/30/17 0820 Urine WBC Clumps Few /HPF 08/30/17 0820 Urine Squamous Epithelial Cells Few /LPF 08/30/17 0820 Urine Bacteria Moderate /HPF H 08/30/17 0820 Urine Hyaline Casts Few /LPF 08/30/17 0820 Urine Mucus None /HPF 08/30/17 0820 Prothrombin Time 21.0 seconds H 08/30/17 0820 Prothromb Time International Ratio 1.77 08/30/17 0820 Activated Partial Thromboplast Time 38 seconds H 08/30/17 0820 D-Dimer Quantitative (PE/DVT) 0.39 ug/ml 08/30/17 0820 Blood Gas Puncture Site Left brachial 08/30/17 0838 Blood Gas Patient Temperature 97.6 DEGREES 1/11/18 08 Arterial Blood pH 7.61 *H 08/30/17 0838 Arterial Blood Partial Pressure CO2 28 mmHg L 08/30/17 08 Arterial Blood Partial Pressure O2 129 mmHg *H 08/30/17 0838 Arterial Blood HCO3 28 mmol/L H 08/30/17 08 Arterial Blood Oxygen Saturation 99 % 08/30/17 08 Arterial Blood Base Excess 7.0 mmol/L 08/30/17 0838 Fausto Test Nt avail 08/30/17 0838 Oxygen Liters/Minute 3l nc 08/30/17 0838 White Blood Count 14.4 k/uL H 08/30/17 0820 Red Blood Count 3.51 M/uL L 08/30/17 0820 Hemoglobin 8.9 g/dL *L 08/30/17 08 Hematocrit 29.1 % L 08/30/17 08 Mean Corpuscular Volume 82.8 fL 08/30/17 08 Mean Corpuscular Hemoglobin 25.4 pg L 08/30/17819 Mean Corpuscular Hemoglobin Concent 30.7 g/dL L 08/30/17 08 Red Cell Distribution Width 22.7 % H 08/30/17 08 Platelet Count 392 K/uL 08/30/17819 Mean Platelet Volume 8.3 fL 08/30/17 08 Neutrophils (%) (Auto) 73.9 % H 08/30/17 08 Lymphocytes (%) (Auto) 12.9 % L 08/30/17 08 Monocytes (%) (Auto) 9.7 % 08/30/17819 Eosinophils (%) (Auto) 2.6 % 08/30/17819 Basophils (%) (Auto) 0.9 % 08/30/17819 Nucleated RBC Relative Count (auto) 0.4 /100WBC 08/30/17819 Neutrophils # (Auto) 10.6 K/uL H 08/30/17 08 Lymphocytes # (Auto) 1.9 K/uL 08/30/17 0820 Monocytes # (Auto) 1.4 K/uL H 08/30/17 0820 Eosinophils # (Auto) 0.4 K/uL 08/30/17 08 Basophils # (Auto) 0.1 K/uL 08/30/17 0820 Nucleated RBC Absolute Count (auto) 0.06 K/uL 08/30/17 0820 Peripheral Blood Smear Yes Y/N 08/30/17 0820 Thyroid Stimulating Hormone (TSH) 1.19 uIU/ml 11/29/18 0000 Magnesium Level 2.0 mg/dl 11/29/18 0000 Calcium Level 9.7 mg/dl 11/29/18 1113 Total Bilirubin 0.3 mg/dl 11/29/18 1113 Aspartate Amino Transf (AST/SGOT) 23 U/L 11/29/18 1113 Alanine Aminotransferase (ALT/SGPT) 27 U/L 11/29/18 1113 Alkaline Phosphatase 93 U/L 11/29/18 1113 Total Protein 5.8 g/dl L 11/29/18 1113 Albumin 3.5 g/dl 11/29/18 1113 Lactate 0.9 mmol/L 11/29/18 1122 Digoxin Level 2.1 ng/ml 11/29/18 0000 Salicylates Level < 10 mg/L 11/29/18 0000 Salicylate Last Dose Date Unk 11/29/18 0000 Acetaminophen Level < 10 ug/ml 11/29/18 0000 Serum Alcohol < 10 mg/dl 11/29/18 0000 Urine Opiates Screen Negative 11/29/18 Urine Barbiturates Screen Negative 11/29/18 0000 Ur Tricyclic Antidepressants Screen Negative 11/29/18 Urine Phencyclidine Screen Negative 11/29/18 Urine Amphetamines Screen Negative 11/29/18 Urine Benzodiazepines Screen Negative 11/29/18 Urine Cocaine Screen Negative 11/29/18 Urine Cannabinoids Screen Negative 11/29/18 Urine culture pending. EKG / Imaging EKG Interpretation FACILITY: [facility] [place] PATIENT NAME: ELENA ROD : [id number] MR: [id number] V: [id number] EXAM DATE: ORDERING PHYSICIAN: MARCELINA PIRES TECHNOLOGIST: Test Reason : Blood Pressure : / mmHG Vent. Rate : 054 BPM Atrial Rate : 025 BPM P-R Int : 000 ms QRS Dur : 098 ms QT Int : 406 ms P-R-T Axes : 000 109 -77 degrees QTc Int : 385 ms Atrial fibrillation Septal infarct , age undetermined ST and T wave abnormality, consider inferolateral ischemia or digitalis effect Abnormal ECG When compared with ECG of 28-OCT-2018 12:54, Vent. rate has decreased BY 63 BPM Septal infarct is now present ST no longer depressed in Inferior leads Referred By: Confirmed By: 1110 T: / Imaging FACILITY: [facility] PATIENT NAME: Elena Rod : 1945 MR: [id number] V: [id number] EXAM DATE: ORDERING PHYSICIAN: MARCELINA PIRES TECHNOLOGIST: Location: [facility] Patient: Elena Rod : 1945 Visit/Account:[id number] Date of Sevice: 11/29/2018 CT Head without contrast Indication: Dizziness. Comparison: 06/06/2018. Technique: Axial CT images were obtained through the brain from the skull base to the vertex without administration of IV contrast. Reformatted coronal and sagittal images were also obtained. One of the following dose optimization techniques was utilized in the performance of this exam: automated exposure control; adjustment of the mA and/or kV according to the patient's size; or use of an iterative reconstruction technique. Specific details can be referenced in the facility's radiology CT exam operational policy. Findings: No evidence of mass, mass effect, or midline shift. No acute intracranial hemorrhage or acute territorial infarction. No extra-axial fluid collection or hydrocephalus. Age-related cerebral atrophy. Periventricular white matter ischemic changes consistent small vessel disease which appears similar. 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 Preston/white matter differentiation appears normal. Bony structures show no fractures or lesions. Mild leftward deviation nasal septum. The visualized paranasal sinuses and mastoid air cells are clear. IMPRESSION: 1. Continued senescent changes without acute abnormality. Report Dictated By: Venkatesh Tse at 11/29/2018 12:09 PM Report E-Signed By: Venkatesh Tse at 11/29/2018 12:16 PM [id number] Pre-Admit Course Medical Record Review: Yes Assessment and Plan Problems: (1) Urinary tract infection Status: Acute Assessment & Plan: Recurrent. Will continue Rocephin. Her urine culture from her last inpatient stay in October grew pansensitive E. coli. Current urine culture is pending. (2) Bradycardia Status: Acute Assessment & Plan: Heart rate in the 40s at times. Her digoxin level is high at 2.1. Will hold. Monitor on telemetry. Hold carvedilol for now. (3) Failure to thrive syndrome, adult Status: Chronic Assessment & Plan: The patient has had recurrent admissions for failure to thrive. Will have Speech Language Pathology see for cognitive evaluation. At present, her short term memory is poor. Will have psychosocial rehabilitation counselor see for disposition planning. (4) Dizziness Status: Acute Assessment & Plan: Will hydrate and have PT evaluate. She has had frequent falls at home. CT was negative. If her symptoms persist, consider MRI of the brain. (5) Acute renal failure Status: Acute Assessment & Plan: Likely due to dehydration. Her creatinine is 1.7 today and was 1.2 at discharge on 10/26/18. Will gently hydrate and monitor her labs. (6) Pressure ulcer Status: Acute Assessment & Plan: Over sacrum. Will have PT wound care evaluate. (7) Anemia Status: Chronic Assessment & Plan: Chronic. Monitor. (8) Hematuria Status: Chronic Assessment & Plan: The patient has had ongoing hematuria but has also had recurrent infections. A recent CT showed thickening of the bladder wall. She sees Dr. Isbell and was to follow up with him after her last discharge, but has not yet done so. (9) Recurrent falls Status: Chronic Assessment & Plan: The patient admits to falling frequently. She was seen in the ER on November 23 after a fall. Will have PT see and evaluate. (10) CHRONIC ATRIAL FIBRILLATION Status: Chronic Assessment & Plan: Will hold Xarelto for now due to hematuria. Will hold digox in due to level of 2.1 and bradycardia. Monitor on telemetry. (11) CKD (chronic kidney disease) stage 3, GFR 30-59 ml/min Status: Chronic Assessment & Plan: Baseline creatinine is about 1.2. (12) HTN (hypertension) Status: Chronic Assessment & Plan: Continue amlodipine and hold carvedilol for now due to bradycardia. (13) CAD (coronary artery disease) Status: Chronic Assessment & Plan: Continue atorvastatin and O2. Hold carvedilol due to bradycardia. (14) Heart failure with reduced ejection fraction Status: Chronic Assessment & Plan: Hold Lasix for now due to dehydration. Hold carvedilol (see above). (15) Bladder wall thickening Status: Chronic Assessment & Plan: She will need to follow up with Dr. Isbell for further evaluation. (16) Type II diabetes mellitus Status: Chronic Assessment & Plan: Will monitor glucoses AC/HS and place on SSI. She is not sure what she has been taking at home to treat her type II DM. She had been on NPH insulin 40u bid and Lispro per SSI per her recent discharge summary. (17) Follicular non-Hodgkin's lymphoma Status: Chronic Assessment & Plan: [facility]. She does have hypoga mmaglobulinemia as a result. She is not currently receiving treatment. Time Spent on Plan of Care: < 30 min Venous Thromboembolism Antithrombotics Is Pt On Any Antithrombotics?: No Prophylaxis Tx Contraindicated Pharmacological Contraindicati: Active Bleeding Exam Sepsis Risk: No Definite Risk Problem Qualifiers (1) Urinary tract infection: Urinary tract infection type: acute cystitis Hematuria presence: with hematuria Qualified Codes: N30.01 - Acute cystitis with hematuria (2) Failure to thrive syndrome, adult: Failure to thrive age range: in adult Qualified Codes: R62.7 - Adult failure to thrive YARELI THURMAN MD Nov 29, 2018 20:05
[2018-11-29] MEDS ORDERED: BUPR-136 PO (20:49)
[2018-11-29 22:25] VITALS: BP 144/53
[2018-11-30] MEDS: NS(*) 0.9% 1000 ML BAG 1,000 ML IV PRN ×2 (03:48→19:35)
[2018-11-30 06:31] LABS: PLATELET COUNT, AUTOMATED 271 K/uL (150-450)
[2018-11-30] MEDS: INSULIN HUM LISPRO 100 UN/ML 3 ML VIAL SUBQ PRN ×4 (08:05→21:20)
--- NOTE | 2018-11-30 08:07 | Hospitalist Progress Note ---
Subjective Progress Notes Subjective Feeling better today. Dizziness has improved. Denies pain. Physical Exam Vital Signs Date Time Temp Pulse Resp B/P (MAP) Pulse Ox O2 Delivery O2 Flow Rate FiO2 11/30/18 03:09 54 95 Nasal Cannula 1.0 11/29/18 22:25 16 11/29/18 19:32 97.9 Intake and Output 11/30/18 07:00 Intake Total 1980 ml Output Total 30 ml Balance 1950 ml Intake Oral 480 ml IV Total 1500 ml Output Urine Total 30 ml # Voids 5 # Bowel Movements 1 General Appearance: Alert, Awake, No Acute Distress Cardiovascular: Other (Irregularly irregular with a 2/4 AL.) GI: Soft and Non-Tender Extremities: Warm, Perfused Integumentary: Generalized Fragile Skin Psych: Appropriate Mood & Affect Result Diagram: 11/30/1862211/30/18622 Assessment and Plan Problems: (1) Urinary tract infection Status: Acute Assessment & Plan: Recurrent. Will continue Rocephin. Her urine culture from her last inpatient stay in October grew pansensitive E. coli. Current urine culture is pending. (2) Bradycardia Status: Acute Assessment & Plan: Heart rate in the 40s at times. Her digoxin level is high at 2.1. Will hold. Monitor on telemetry. Hold carvedilol for now. (3) Failure to thrive syndrome, adult Status: Chronic Assessment & Plan: The patient has had recurrent admissions for failure to th rive. Will have Speech Language Pathology see for cognitive evaluation. At present, her short term memory is poor. Will have social service worker see for disposition planning. (4) Dizziness Status: Acute Assessment & Plan: Improved with hydration and getting her glassess. Will continue to hydrate and have PT evaluate. She has had frequent falls at home. CT was negative. If her symptoms persist, consider MRI of the brain. (5) Acute renal failure Status: Acute Assessment & Plan: Likely due to dehydration. Her creatinine is 1.3 today and was 1.2 at discharge on 10/26/18. Will continue to gently hydrate and monitor her labs. (6) Pressure ulcer Status: Acute Assessment & Plan: Over sacrum. Will have PT wound care evaluate. (7) Anemia Status: Chronic Assessment & Plan: Chronic. Monitor. (8) Hematuria Status: Chronic Assessment & Plan: The patient has had ongoing hematuria but has also had recurrent infections. A recent CT showed thickening of the bladder wall. She s ees Dr. Jara and was to follow up with him after her last discharge, but has not yet done so. (9) Recurrent falls Status: Chronic Assessment & Plan: The patient admits to falling frequently. She was seen in the ER on November 23 after a fall. Will have PT see and evaluate. (10) CHRONIC ATRIAL FIBRILLATION Status: Chronic Assessment & Plan: Will hold Xarelto for now due to hematuria. Will hold digoxin due to level of 2.1 and bradycardia. Monitor on telemetry. (11) CKD (chronic kidney disease) stage 3, GFR 30-59 ml/min Status: Chronic Assessment & Plan: Baseline creatinine is about 1.2. (12) HTN (hypertension) Status: Chronic Assessment & Plan: Continue amlodipine and hold carvedilol for now due to bradycardia. (13) CAD (coronary artery disease) Status: Chronic Assessment & Plan: Continue atorvastatin and O2. Hold carvedilol due to bradycardia. (14) Heart failure with reduced ejection fraction Status: Chronic Assessment & Plan: Hold Lasix for now due to dehydration. Hold carvedilol (see above). (15) Bladder wall thickening Status: Chronic Assessment & Plan: She will need to follow up with Dr. Jara for further evaluation. (16) Type II diabetes mellitus Status: Chronic Assessment & Plan: Will monitor glucoses AC/HS and place on NPH 10u bid plus SSI. She is not sure what she has been taking at home to treat her type II DM. She had been on NPH insulin 40u bid and Lispro per SSI per her recent discharge summary. (17) Follicular non-Hodgkin's lymphoma Status: Chronic Assessment & Plan: Followed by the Cancer Center. She does have hypogammaglobulinemia as a result. She is not currently receiving treatment. Time Spent on Plan of Care: < 30 min Exam Sepsis Risk: No Definite Risk Problem Qualifiers (1) Urinary tract infection: Urinary tract infection type: acute cystitis Hematuria presence: with hematuria Qualified Codes: N30.01 - Acute cystitis with hematuria (2) Failure to thrive syndrome, adult: Failure to thrive age range: in adult Qualified Codes: R62.7 - Adult failure to thrive YARELI THURMAN MD Nov 30, 2018 08:07
[2018-11-30 08:18] VITALS: BP 147/72
[2018-11-30 08:49] VITALS: Ht 170.2 cm; Wt 70.0 kg
[2018-11-30] MEDS: INSULIN HUM ISO(NPH) 100 UN/ML 3 ML VIAL SUBQ SCH ×2 (09:22→17:32)
[2018-11-30] MEDS: ATORVASTATIN 10 MG TAB PO SCH (09:22)
[2018-11-30 11:34] VITALS: BP 136/58
--- NOTE | 2018-11-30 11:35 | NUR ---
Physical Therapy Impression PT eval completed. Pt tolerated bed mobility, transfers and ambulation with FWW and SBA/Modified indep. Pt was noted to be incontinent in BR and requested a fresh brief. Pt encouraged to ambulate to/from BR for bladder trng every 2 hours and to change briefs to minimize moisture against skin, as this can worsen excoriation and increases risk for further skin breakdown. Physical Therapy Goals 1. Pt to be modified indep with bed mobility and sup<>sit trnsfr 2. Pt to be modified indep with sit to/from stand trnsfr 3. Pt to ambulate x 150' with FWW and Modified indep without loss of balance 4. Pt to lo up/down small platform step to simulate threshold to home with FWW and SBA/Modified indep Patient's Goals
--- NOTE | 2018-11-30 11:50 | NUR ---
Physical Therapy Impression PT completed wound eval after toileting. Pt was provided a moist wipe and then wiped from back to front after having a BM. Pt was educated to wipe from front to back, especially after a BM to minimize the risk of further UTI's. Pt states she knows this, but does not seem to comprehend her actions. Skin inspection after PT completed proper pericare, reveals a moisture related skin breakdown at superior cleft of buttocks. No debridement indicated as no slough is present. Treatment plan to apply zinc based moisture barrier cream and off load. Pt also encouraged to ambulate to/from BR every 2 hours for bladder trng and to change briefs due to incontinence and minimize moisture against skin. Physical Therapy Goals 1. Pt to be modified indep with bed mobility and sup<>sit trnsfr 2. Pt to be modified indep with sit to/from stand trnsfr 3. Pt to ambulate x 150' with FWW and Modified indep without loss of balance 4. Pt to lo up/down small platform step to simulate threshold to home with FWW and SBA/Modified indep Patient's Goals
[2018-11-30 13:46] VITALS: BP 162/77
[2018-11-30] MEDS: ACETAMINOPHEN 500 MG TAB PO PRN (14:14)
[2018-11-30] MEDS: cefTRIAXone 1 GM VIAL IVP SCH (14:14)
[2018-11-30 17:27] VITALS: BP 158/73
[2018-11-30 19:17] VITALS: BP 160/60
[2018-11-30 23:13] VITALS: BP 162/73
[2018-12-01] MEDS: ACETAMINOPHEN 500 MG TAB PO PRN (01:06)
[2018-12-01 02:56] VITALS: BP 169/81
[2018-12-01] MEDS: NS(*) 0.9% 1000 ML BAG 1,000 ML IV PRN ×2 (05:14→20:15)
[2018-12-01 05:52] LABS: PLATELET COUNT, AUTOMATED 262 K/uL (150-450)
[2018-12-01 07:57] VITALS: BP 156/101
[2018-12-01] MEDS ORDERED: PROMETHAZINE 25 MG/ML 1 ML AMP IVP PRN (08:30)
[2018-12-01] MEDS: INSULIN HUM LISPRO 100 UN/ML 3 ML VIAL SUBQ PRN ×4 (09:56→21:17)
[2018-12-01] MEDS: ATORVASTATIN 10 MG TAB PO SCH (09:57)
[2018-12-01] MEDS: CARVEDILOL 25 MG TABLET PO SCH ×2 (09:57→20:17)
[2018-12-01] MEDS: GABAPENTIN 300 MG CAP PO SCH ×2 (09:57→20:17)
[2018-12-01] MEDS: INSULIN HUM ISO(NPH) 100 UN/ML 3 ML VIAL SUBQ SCH ×2 (09:57→17:11)
[2018-12-01] MEDS: RIVAROXABAN 10 MG TAB PO SCH (09:58)
--- NOTE | 2018-12-01 10:14 | Medical Nutrition Therapy ---
Nutrition Anthropometrics Height (Inches): 67.00 Height (Calculated Centimeters: 170.164814 Weight (Pounds): 154 Weight (Calculated Kilograms): 70.023 Arnoldo Nutrition Score: Probably Inadequate Arnoldo Nutrition Risk Score: 14 Dietary Referral Nutrition Risk Factors: Special Diet Nutrition Risk Comment: Physical Findings Physical Appearance: Skin Appearance Skin Appearance: Edema Edema Location Modifier: Both Edema Location: Lower Extremity Type of Edema: Degree of Edema: 1+ Gastrointestinal Symptoms GI Symtoms: Nausea Tube Present: Bowel Sounds: Recent Bowel Pattern: Stool Characteristics: Nutritional Diagnosis Nutritional Risk Acuity 1: Acute/ES Renal, Fail to Thrive Nutritional Risk Acuity 2: Chronic Renal Failure, Blood Glucose > 300mg/dl Nutritional Risk Acuity 3: Fair Appetite Past Medical History: CAD, HTN, T2DM, CKD-3, non-Hodkins lymphoma, CHF, chronic edema, chronic UTI, hypercholesteremia, urinary incontinence, chronic renal disease, pulmonary nodule, GI bleed, anemia, ribs (multiple fractures), hypogammagloblinemia, lumbosacral spinal surgery, tonsillectomy, and cataract extraction and CABG. Nutritional Acuity: 1-High Nutrition Diagnosis: Inappropriate Carb Intake Nutrition Etiology: Physiological Causes Nutrition Problem/Etiology/Sym: Inappropriate carb intake as related to physiological causes as evidenced by whole blood glucose of 280-362 Energy Requirement: 1629 (m st jeor X 1.1 X 1.2) Protein Requirement: 56 (0.8 g protein/kg) Fluid Requirement: 1629 (1mL/kcal) Nutrition Intervention: Cont diet as ordered, Encourage intake, Check glucose Nutrition Monitoring & Eval Nutrition Goals: Eat 50-100% Meal Nutrition Follow-Up: Good Intake Nutrition Monitoring: Pt consuming 100% of small meals RD Patient Assessment Time: [address] Assessment Type: RD Assessment Patient Nutrition Acuity: 1-High Follow Up Date: Dec 04, 2018 Nutritional Comment: Pt admitted with weakness and confusion. Dx with UTI, bradycardia, FTT, dizziness, ARF, pressure ulcer, and hematuria. Pt taking insulin. Pt on ADA diet with no reported intakes. Pt RCB of 3.78, hgb of 10.2, and hct of 32.1 are decreased. Whole blood glucose of 181-276 are elevated. Total protein of 5.8 is decreased. Na of 136 is decreased. Monitor blood glucose and for adequate intake. -AKG 4/14 Pt continues on ADA diet with 100% intakes. Whole blood glucose has ranged from 280-362, quite elevated. Pt is on insulin and rivaroxaban. Pt reports nausea. 1+ pitting edema in BLE. creatinine of 1.20 is elevate. Monitor for adequate intake and blood glucose.-CHEYANNE PERALTA Dec 01, 2018 10:14
[2018-12-01 11:45] VITALS: BP 147/83
--- NOTE | 2018-12-01 13:40 | Hospitalist Progress Note ---
Subjective Progress Notes Subjective No dizziness, but some nausea. No abdominal pain. No fever. Physical Exam Vital Signs Date Time Temp Pulse Resp B/P (MAP) Pulse Ox O2 Delivery O2 Flow Rate FiO2 12/01/18 11:45 97.4 86 16 147/83 (104) 94 Nasal Cannula 2.0 Intake and Output 12/01/18 07:00 Intake Total 2940 ml Balance 2940 ml Intake Oral 940 ml IV Total 2000 ml # Voids 14 # Bowel Movements 5 General Appearance: Alert, Awake Cardiovascular: Other (Irregular with systolic murmur) Respiratory: Other (Essentially clear) GI: Other (Soft/BS present) : No CVA Tenderness Extremities: Warm, Perfused Integumentary: Generalized Fragile Skin, Other (some pressure areas/early breakdown along cleft) Result Diagram: 12/01/1853212/01/18532 Assessment and Plan Problems: (1) Urinary tract infection Status: Acute Assessment & Plan: Recurrent. Will continue IV Rocephin. Her urine culture from her last inpatient stay in October grew pansensitive E. coli. Current urine culture is negative thus far. (2) Bradycardia Status: Acute Assessment & Plan: Heart rate was in the 40s at times. Her digoxin level was high at 2.1. We held the digoxin and carvedilol initially. Her HR is now into 90-110 range. We will restart the carvedilol, but hold the digoxin for now. Monitor. (3) Failure to thrive syndrome, adult Status: Chronic Assessment & Plan: The patient has had recurrent admissions for failure to thrive. Will have Speech Language Pathology see for cognitive evaluation. At present, her short term memory is poor. Will have home health care social worker see for disposition planning. (4) Dizziness Status: Acute Assessment & Plan: Improved with hydration (and getting her glasses). Will cut back on IV fluids now. Will also have PT evaluate as she has had frequent falls at home. CT scan was negative. (5) Acute renal failure Status: Acute Assessment & Plan: Likely due to dehydration. Her creatinine is 1.2 today and was 1.2 at discharge on 10/26/18. Will continue to monitor. (6) Pressure ulcer Status: Acute Assessment & Plan: Will have PT wound care evaluate/treat as needed, Try to keep pressure off the area. (7) Anemia Status: Chronic Assessment & Plan: Chronic. Monitor. (8) Hematuria Status: Chronic Assessment & Plan: The patient has had ongoing hematuria, but has also had recurrent infections. A recent CT showed thickening of the bladder wall. She se es Dr. Jara and was to follow up with him after her last discharge, but has not yet done so. (9) Recurrent falls Status: Chronic Assessment & Plan: The patient admits to falling frequently. She was seen in the ER on November 23 after a fall. PT to see and evaluate. (10) CHRONIC ATRIAL FIBRILLATION Status: Chronic Assessment & Plan: Will now resume her Xarelto 15mg daily (initially held due to hematuria). Will continue to hold digoxin due to elevated level. Carvedilol will be restarted. Monitor on telemetry. (11) CKD (chronic kidney disease) stage 3, GFR 30-59 ml/min Status: Chronic Assessment & Plan: Baseline creatinine is about 1.2. (12) HTN (hypertension) Status: Chronic Assessment & Plan: Continue to hold amlodipine. Will restart carvedilol. (13) CAD (coronary artery disease) Status: Chronic Assessment & Plan: Continue atorvastatin and O2. Resume carvedilol. (14) Heart failure with reduced ejection fraction Status: Chronic Assessment & Plan: Hold Lasix for now due to dehydration. Resume carvedilol (see above). (15) Bladder wall thickening Status: Chronic Assessment & Plan: She will need to follow up with Dr. Jara for further evaluation. (16) Type II diabetes mellitus Status: Chronic Assessment & Plan: Will continue to monitor glucoses AC/HS. Increase NPH 20u BID plus SSI. She is not sure what she has been taking at home to treat her type II DM. She had been on NPH insulin 40u BID and Lispro per SSI per her recent discharge summary. (17) Follicular non-Hodgkin's lymphoma Status: Chronic Assessment & Plan: [facility] She does have hypogammaglobulinemia as a result. She is not currently receiving treatment. Exam Sepsis Risk: No Definite Risk Problem Qualifiers (1) Urinary tract infection: Urinary tract infection type: acute cystitis Hematuria presence: with hematuria Qualified Codes: N30.01 - Acute cystitis with hematuria (2) Failure to thrive syndrome, adult: Failure to thrive age range: in adult Qualified Codes: R62.7 - Adult failure to thrive RAMIN THURMAN MD Dec 01, 2018 13:40
[2018-12-01] MEDS: cefTRIAXone 1 GM VIAL IVP SCH (14:10)
[2018-12-01 15:46] VITALS: BP 154/86
[2018-12-01 19:41] VITALS: BP 151/76
[2018-12-01 23:14] VITALS: BP 172/97
[2018-12-02] VITALS (7 sets, daily range): BP systolic 146–172; BP diastolic 60–109
[2018-12-02] MEDS: NS(*) 0.9% 1000 ML BAG 1,000 ML IV PRN (06:10)
[2018-12-02 06:12] LABS: PLATELET COUNT, AUTOMATED 260 K/uL (150-450)
[2018-12-02] MEDS: GABAPENTIN 300 MG CAP PO SCH ×2 (08:09→20:57)
[2018-12-02] MEDS: ATORVASTATIN 10 MG TAB PO SCH (08:10)
[2018-12-02] MEDS: CARVEDILOL 25 MG TABLET PO SCH ×2 (08:10→20:57)
[2018-12-02] MEDS: INSULIN HUM LISPRO 100 UN/ML 3 ML VIAL SUBQ PRN ×4 (08:12→20:59)
[2018-12-02] MEDS: INSULIN HUM ISO(NPH) 100 UN/ML 3 ML VIAL SUBQ SCH ×2 (08:12→16:49)
[2018-12-02] MEDS ORDERED: PROMETHAZINE 25 MG/ML 1 ML AMP IVP PRN (12:25)
--- NOTE | 2018-12-02 12:34 | Hospitalist Progress Note ---
Subjective Progress Notes Subjective She has complaints of weakness. She had no acute events overnight. Patient Complains of: Cardiovascular: No: Chest Pain Respiratory: No: Shortness of Breath Physical Exam Vital Signs Date Time Temp Pulse Resp B/P (MAP) Pulse Ox O2 Delivery O2 Flow Rate FiO2 12/02/18 12:02 98.6 94 16 146/83 (104) 90 Nasal Cannula 2.0 Intake and Output 12/02/18 00:59 Intake Total 2784.5 ml Balance 2784.5 ml Intake Oral 790 ml IV Total 1994.5 ml # Voids 5 # Bowel Movements 1 General Appearance: Alert, Awake, No Acute Distress Neuro: No Gross deficits Cardiovascular: Regular Rate and Rhythm Respiratory: No Respiratory Distress, Clear to Auscultation GI: Soft and Non-Tender Psych: Alert & Oriented X3, Appropriate Mood & Affect Result Diagram: 12/02/1860312/02/18603 Assessment and Plan Problems: (1) Urinary tract infection Status: Acute Assessment & Plan: Recurrent. Will continue IV Rocephin. Her urine culture from her last inpatient stay in October grew pansensitive E. coli. Current urine culture is negative. (2) Bradycardia Status: Acute Assessment & Plan: Heart rate was in the 40s at times. Her digoxin level was high at 2.1. We held the digoxin and carvedilol initially. Her HR is now into 90-110 range. We will restart the carvedilol, but hold the digoxin for now. Monitor. (3) Failure to thrive syndrome, adult Status: Chronic Assessment & Plan: The patient has had recurrent admissions for failure to thrive. Will have Speech Language Pathology see for cognitive evaluation. At present, her short term memory is poor. Will have social media content manager see for disposition planning. (4) Dizziness Status: Acute Assessment & Plan: Improved with hydration (and getting her glasses). Will saline lock now. Will also have PT evaluate as she has had frequent falls at home. CT scan was negative. (5) Acute renal failure Status: Acute Assessment & Plan: Likely due to dehydration. Her creatinine is 0.9 today and was 1.2 at discharge on 10/26/18. Will continue to monitor. (6) Pressure ulcer Status: Acute Assessment & Plan: Will have PT wound care evaluate/treat as needed, Try to keep pressure off the area. (7) Anemia Status: Chronic Assessment & Plan: Chronic. Monitor. (8) Hematuria Status: Chronic Assessment & Plan: The patient has had ongoing hematuria, but has also had recurrent infections. A recent CT showed thickening of the bladder wall. She sees Dr. Jara and was to follow up with him after her last discharge, but has not yet done so. (9) Recurrent falls Status: Chronic Assessment & Plan: The patient admits to falling frequently. She was seen in the ER on November 23 after a fall. PT to see and evaluate. (10) CHRONIC ATRIAL FIBRILLATION Status: Chronic Assessment & Plan: Will now resume her Xarelto 15mg daily (initially held due to hematuria). Will continue to hold digoxin due to elevated level. Carvedilol will be restarted. Monitor on telemetry. (11) CKD (chronic kidney disease) stage 3, GFR 30-59 ml/min Status: Chronic Assessment & Plan: Baseline creatinine is about 1.2. (12) HTN (hypertension) Status: Chronic Assessment & Plan: Continue to hold amlodipine. Will restart carvedilol. (13) CAD (coronary artery disease) Status: Chronic Assessment & Plan: Continue atorvastatin and O2. Resume carvedilol. (14) Heart failure with reduced ejection fraction Status: Chronic Assessment & Plan: Hold Lasix for now due to dehydration. Resume carvedilol (see above). (15) Bladder wall thickening Status: Chronic Assessment & Plan: She will need to follow up with Dr. Jara for further evaluation. (16) Type II diabetes mellitus Status: Chronic Assessment & Plan: Will continue to monitor glucoses AC/HS. Increase NPH 20u BID plus SSI. She is not sure what she has been taking at home to treat her type II DM. She had been on NPH insulin 40u BID and Lispro per SSI per her recent discharge summary. (17) Follicular non-Hodgkin's lymphoma Status: Chronic Assessment & Plan: Followed by the [facility]. She does have hypogammaglobulinemia as a result. She is not currently receiving treatment. Exam Sepsis Risk: No Definite Risk Problem Qualifiers (1) Urinary tract infection: Urinary tract infection type: acute cystitis Hematuria presence: with hematuria Qualified Codes: N30.01 - Acute cystitis with hematuria (2) Failure to thrive syndrome, adult: Failure to thrive age range: in adult Qualified Codes: R62.7 - Adult failure to thrive MARIAJOSE [facility]TE [facility] Dec 02, 2018 12:34
--- NOTE | 2018-12-02 13:48 | NUR ---
ST Impression Cognitive linguistic assessment complete. See full report for details. The pt has been unsuccessful at home despite access to home health services. Mild cognitive deficits noted with specific difficulty completing executive function tasks. Rec [facility] or SNF at discharge.
--- NOTE | 2018-12-02 14:09 | Urology Progress Note ---
Subjective Patient Complains of: Neurological: No: Syncope, Confusion, Weakness, Dizziness, Slurred Speech, Other Genitourinary: No Dysuria, No Hematuria, No Urinary Incontinence, No Other Physical Exam Vital Signs Date Time Temp Pulse Resp B/P (MAP) Pulse Ox O2 Delivery O2 Flow Rate FiO2 12/02/18 12:02 98.6 94 16 146/83 (104) 90 Nasal Cannula 2.0 Intake and Output 12/02/18 07:00 Intake Total 2772.5 ml Balance 2772.5 ml Intake Oral 790 ml IV Total 1982.5 ml # Voids 4 # Bowel Movements 1 General Appearance: No Acute Distress Eyes: PERRLA GI: Soft and Non-Tender Result Diagram: 12/02/1860312/02/18603 Assessment and Plan Problems: (1) UTI (lower urinary tract infection) Status: Chronic Condition It's hard to know if she will be compliant or not, but I think this is a good patient for low-dose suppression with Macrodantin 50 mg po qhs At some point I would like to cysto her. I could do this in my clinic this week while she is an inpatient Time Spent: < 30 min Exam Sepsis Risk: No Definite Risk MACHELLE ISBELL MD Dec 02, 2018 14:09
--- NOTE | 2018-12-02 14:18 | SPEECH INITIAL EVALUATION ---
INITIAL SPEECH THERAPY EVALUATION REPORT Cognitive Communication Assessment Patient Name: Elena Saunders Date of Evaluation: 12/02/18 Patient : 43, 73yo Clinician: Coco Solano M.S., CCC-HEARING AID ASSISTANT Treatment Dx: mild cognitive linguistic deficits. BACKGROUND The patient is a 73-year old female admitted to [facility] on 11/29/18 after police were sent to her home to complete a welfare check. The pts daughter initiated the welfare check after she was unable to reach the pt via phone. Police called paramedics when they found the pt somewhat "unresponsive" on her couch. Of note, the pt was also recently discharged from [facility] on 11/05/18 after an inpatient stay for failure to thrive and a UTI. The pt had previously been at the [facility], but self-discharged. Upon most recent hospital discharge, staff had recommended return to the [facility] or placement at [facility]. The pt refused the [facility], and could not afford [facility]. The pt now presents for an ST evaluation to analyze cognitive linguistic status and assist in developing recommendations for safe discharge from hospital environment. Primary Medical Diagnosis: Urinary Tract Infection Past Medical Hx: recurrent admissions for failure to thrive, acute renal failure due to dehydration, recurrent falls, hematuria, chronic A Fib, CKD, HTN Pain Scale (0-10): patient w/ no reports of pain. LOC / Participation: alert, cooperative Motor Speech: WFL; non-apraxic; non-dysarthric Voice: WFL Dysphagia: swallow status was screened with thin liquids. No overt signs of aspiration or dysphagia. RN not reporting any deficits. COGNITIVE LINGUISTIC ASSESSMENT Pt was seen at the bedside for cognitive linguistic analysis using the William Cognitive Assessment, (Version 7.3) paired with informal evaluation procedures. The pt obtained a score of 24/30 on the MOCA, exhibiting mild cognitive linguistic deficits in the areas of problem solving and executive functions. Relative areas of strength were noted in orientation, attention, immediate memory, and delayed recall. The pt also appropriately described course of hospitalization, endorsing decline in ability to care for self and need for elevated level of support at discharge. Most notable area of impairment was seen in executive function skills, including reduced organization, planning, and self-monitoring/awareness of errors. Although impairments were mild and primarily observed during tasks requiring higher-level cognitive linguistic skills, suspect deficits become intermittently exacerbated in the setting of recurrent UTIs, generalized weakness, and failure to thrive. The pt has not been successful at home, despite access to home health services. At this time, the pt appears to be functioning close to baseline from a strictly cognitive-linguistic standpoint as UTI begins to resolve. Brief course of ST is warranted in the acute care setting to support deficits in executive functioning, and to optimize safe transition to next level of care. Recommend assisted living or residential facility at discharge. Per family and RN report, they may be seeking long-term placement. RECOMMENDATIONS 1. ST 2x/wk 2. d/c to [facility] or SNF 3. Continued assistance with medication management, transportation, financial reporting manager, and appointment management at discharge PROGNOSIS: Good, evolving insight, motivation to participate PLAN OF CARE Short Term Goals 1. The patient will appropriately complete organization/planning tasks with access to external organization systems and min cues for awareness of errors to support deficits in executive functioning (planning, organization, self- monitoring) and promote prospective thinking for safe transition to next level of care. Thank you for this referral. Please call [phone] to contact with any questions or concerns. Coco Solano M.S., CCC-HEARING AID ASSISTANT [*] NIRMAL
--- NOTE | 2018-12-02 14:22 | NUR ---
Occupational Therapy Impression Pt reports feeling fatigued this date and attributes it nausea medication taken yesterday. Min A supine to sit. CGA ambulation x20ft with RW. Declined toileting. Seated up in chair as lunch arrived. Rec 12/03 supervision upon discharge ([facility] or placement) for increased assist for ADLs/IADLs as pt has been unsuccessful at home. Occupational Therapy Goals 1) Pt will be SBA UB/LB dressing. 2) Pt will be SBA grooming/hygiene. 3) Pt will be CGA toilet task. Patient's Goal
[2018-12-02] MEDS: cefTRIAXone 1 GM VIAL IVP SCH (14:41)
--- NOTE | 2018-12-02 16:23 | Antimicrobial Stewardship ---
Antimicrobial Stewardship Empiricly appropriate: Yes Significant PMH: Yes (History of UTI, hypogammaglobulinemia) Support empiric regimen: Yes (Ceftriaxone- Hx of lopez sensitive e.coli) Approriate Cultures done: Yes (Urine Cx - NGTD) Appropriate dose for site: Yes Determine cumulative duration: Day 3 Determine standard duration: Uncomplicated UTI - 3-7 days (depending on abx) Comment 73 yo F with a PMH of UTI, hypogammaglobulinemia, afib, CABG, bladder wall thickening, CKD, and follicular lymphoma who presented with weakness and confusion. Tmax wnl WBC wnl Urine Cx NGTD UA with RBC and WBC Pt is asymptomatic Three doses of Ceftriaxone given, per urology recommendation of macrodantin 50mg po QHS for suppression. Plan to do cystoscopy at some point in the future. Lisa Schroeder, PharmD, BCOP LISA SCHROEDER Dec 02, 2018 16:23
[2018-12-02] MEDS: DIGOXIN 0.125 MG TAB PO SCH (18:21)
[2018-12-02] MEDS: NITROFURANTOIN MACROCRYSTALS 50 MG PO SCH (20:57)
[2018-12-03 03:45] VITALS: BP_SYST 180; BP_SYST 185; BP_DIAS 100; BP_DIAS 80
[2018-12-03 07:19] VITALS: BP 130/80
[2018-12-03] MEDS: CARVEDILOL 25 MG TABLET PO SCH ×2 (08:24→21:19)
[2018-12-03] MEDS: DIGOXIN 0.125 MG TAB PO SCH (08:24)
[2018-12-03] MEDS: GABAPENTIN 300 MG CAP PO SCH ×2 (08:27→21:19)
[2018-12-03] MEDS: ATORVASTATIN 10 MG TAB PO SCH (08:27)
[2018-12-03] MEDS: INSULIN HUM ISO(NPH) 100 UN/ML 3 ML VIAL SUBQ SCH ×2 (08:28→16:43)
--- NOTE | 2018-12-03 11:39 | Hospitalist Progress Note ---
Subjective Progress Notes Subjective She was admitted for UTI. She has no complaints this morning. She had no acute events overnight. She is currently awaiting placement for SNF. Patient Complains of: Cardiovascular: No: Chest Pain Respiratory: No: Shortness of Breath Physical Exam Vital Signs Date Time Temp Pulse Resp B/P (MAP) Pulse Ox O2 Delivery O2 Flow Rate FiO2 12/03/18 08:24 89 12/03/18 08:20 16 12/03/18 08:10 92 Nasal Cannula 2.0 12/03/18 07:19 97.2 130/80 (97) Intake and Output 12/03/18 07:00 Intake Total 1660 ml Output Total 1 ml Balance 1659 ml Intake Oral 1140 ml IV Total 520 ml Emesis 1 ml # Voids 6 # Bowel Movements 1 General Appearance: Alert, Awake, No Acute Distress, Afebrile Neuro: No Gross deficits Cardiovascular: Regular Rate and Rhythm Respiratory: No Respiratory Distress, Clear to Auscultation Extremities: Warm, Perfused Psych: Alert & Oriented X3, Appropriate Mood & Affect Result Diagram: 12/02/1860312/02/18603 Assessment and Plan Problems: (1) Urinary tract infection Status: Acute Assessment & Plan: Recurrent. She was started on IV Rocephin. Her urine culture from her last inpatient stay in October grew pansensitive E. coli. Current urine culture is negative. Rocephin was stopped after three doses. She will be placed on Macrobid for preventative UTI treatment per Dr. Jara. (2) Bradycardia Status: Acute Assessment & Plan: Heart rate was in the 40s at times. Her digoxin level was high at 2.1. We held the digoxin and carvedilol initially. Her HR is now into 90-110 range. We will restart the carvedilol and digoxin for now. Monitor. (3) Failure to thrive syndrome, adult Status: Chronic Assessment & Plan: The patient has had recurrent admissions for failure to thrive. Will have Speech Language Pathology see for cognitive evaluation. At present, her short term memory is poor. Will have social psychologist see for disposition planning. (4) Dizziness Status: Acute Assessment & Plan: Improved with hydration (and getting her glasses). Will saline lock now. Will also have PT evaluate as she has had frequent falls at home. CT scan was negative. (5) Acute renal failure Status: Acute Assessment & Plan: Likely due to dehydration. Her creatinine is 0.9 today and was 1.2 at discharge on 10/26/18. Will continue to monitor. (6) Pressure ulcer Status: Acute Assessment & Plan: Will have PT wound care evaluate/treat as needed, Try to keep pressure off the area. (7) Anemia Status: Chronic Assessment & Plan: Chronic. Monitor. (8) Hematuria Status: Chronic Assessment & Plan: The patient has had ongoing hematuria, but has also had recurrent infections. A recent CT showed thickening of the bladder wall. She sees Dr. Jara and was to follow up with him after her last discharge, but has not yet done so. He has recommended cystoscopy. (9) Recurrent falls Status: Chronic Assessment & Plan: The patient admits to falling frequently. She was seen in the ER on November 23 after a fall. PT to see and evaluate. (10) CHRONIC ATRIAL FIBRILLATION Status: Chronic Assessment & Plan: Will now resume her Xarelto 15mg daily (initially held due to hematuria). Will continue to hold digoxin due to elevated level. Carvedilol will be restarted. Monitor on telemetry. (11) CKD (chronic kidney disease) stage 3, GFR 30-59 ml/min Status: Chronic Assessment & Plan: Baseline creatinine is about 1.2. (12) HTN (hypertension) Status: Chronic Assessment & Plan: Will resume amlodipine and carvedilol. (13) CAD (coronary artery disease) Status: Chronic Assessment & Plan: Continue atorvastatin and O2. Resume carvedilol. (14) Heart failure with reduced ejection fraction Status: Chronic Assessment & Plan: Hold Lasix for now due to dehydration. Resume carvedilol (se e above). (15) Bladder wall thickening Status: Chronic Assessment & Plan: She will need to follow up with Dr. Jara for further evalu ation. (16) Type II diabetes mellitus Status: Chronic Assessment & Plan: Will continue to monitor glucoses AC/HS. Increase NPH 20u BID plus SSI. She is not sure what she has been taking at home to treat her type II DM. She had been on NPH insulin 40u BID and Lispro per SSI per her recent discharge summary. (17) Follicular non-Hodgkin's lymphoma Status: Chronic Assessment & Plan: [facility] She does have hypogammaglobulinemia as a result. She is not currently receiving treatment. Exam Sepsis Risk: No Definite Risk Problem Qualifiers (1) Urinary tract infection: Urinary tract infection type: acute cystitis Hematuria presence: with hematuria Qualified Codes: N30.01 - Acute cystitis with hematuria (2) Failure to thrive syndrome, adult: Failure to thrive age range: in adult Qualified Codes: R62.7 - Adult failure to thrive (3) HTN (hypertension): Hypertension type: essential hypertension Qualified Codes: I10 - Essential (primary) hypertension MARIAJOSE RODARTE [employer] WORK[employer] Dec 03, 2018 11:38
[2018-12-03 11:40] VITALS: BP 170/88
[2018-12-03] MEDS: INSULIN HUM LISPRO 100 UN/ML 3 ML VIAL SUBQ PRN ×2 (11:47→16:43)
--- NOTE | 2018-12-03 12:44 | NUR ---
Occupational Therapy Impression Min A supine to sit. Sit<>stands with RW x3 attempts. Pt retropulsive requiring Max A from therapist and support of bed to maintain safety in standing. Decreased initiation and follow through with v/c's for safe transfer. EZ lift utilized to promote safe mobility with CGA. Max A toileting. Recommend long-term rehab/placement. Occupational Therapy Goals 1) Pt will be SBA UB/LB dressing. 2) Pt will be SBA grooming/hygiene. 3) Pt will be CGA toilet task. Patient's Goal
[2018-12-03] MEDS ORDERED: amLODIPine BESYL(*) 5 MG TAB PO ONE (12:55)
[2018-12-03 13:11] VITALS: BP 148/84
--- NOTE | 2018-12-03 14:44 | NUR ---
Physical Therapy Impression OT and RN reporting pt required use of EZ lift this morning d/t poor tolerance to mobility and safety. Pt up in bathroom and completed STS transfers with CGA. Pt offered ambulation and was agreeable. Ambulation x20' with RW and CGA, pt ambulates with shuffling gait pattern. Pt is not safe to d/c home d/t inconsistency with functional mobility. Physical Therapy Goals 1. Pt to be modified indep with bed mobility and sup<>sit trnsfr 2. Pt to be modified indep with sit to/from stand trnsfr 3. Pt to ambulate x 150' with FWW and Modified indep without loss of balance 4. Pt to lo up/down small platform step to simulate threshold to home with FWW and SBA/Modified indep Patient's Goals
[2018-12-03 16:39] VITALS: BP 150/80
[2018-12-03 19:16] VITALS: BP 163/82
[2018-12-03] MEDS: NITROFURANTOIN MACROCRYSTALS 50 MG PO SCH (21:19)
[2018-12-04 04:05] VITALS: BP 162/100
[2018-12-04 07:30] VITALS: BP 171/82
[2018-12-04] MEDS: INSULIN HUM LISPRO 100 UN/ML 3 ML VIAL SUBQ PRN ×4 (07:41→20:19)
[2018-12-04] MEDS: INSULIN HUM ISO(NPH) 100 UN/ML 3 ML VIAL SUBQ SCH ×2 (07:42→16:32)
[2018-12-04] MEDS: ACETAMINOPHEN 500 MG TAB PO PRN ×2 (07:42→21:33)
[2018-12-04] MEDS: ATORVASTATIN 10 MG TAB PO SCH (08:40)
[2018-12-04] MEDS: DIGOXIN 0.125 MG TAB PO SCH (08:40)
[2018-12-04] MEDS: CARVEDILOL 25 MG TABLET PO SCH ×2 (08:40→20:19)
[2018-12-04] MEDS: amLODIPine BESYL(*) 5 MG TAB PO SCH (08:41)
[2018-12-04] MEDS: GABAPENTIN 300 MG CAP PO SCH ×2 (08:41→20:18)
--- NOTE | 2018-12-04 11:57 | Hospitalist Progress Note ---
Subjective Progress Notes Subjective She has no complaints this morning. She had no acute events overnight. Patient Complains of: Cardiovascular: No: Chest Pain Respiratory: No: Shortness of Breath Physical Exam Vital Signs Date Time Temp Pulse Resp B/P (MAP) Pulse Ox O2 Delivery O2 Flow Rate FiO2 12/04/18 08:40 88 12/04/18 07:44 97 Nasal Cannula 2.0 12/04/18 07:30 18 171/82 (111) 12/04/18 04:05 97.4 Intake and Output 12/04/18 01:00 Intake Total 698 ml Output Total 1 ml Balance 697 ml Intake Oral 698 ml Output Urine Total 1 ml # Voids 8 General Appearance: Alert, Awake, No Acute Distress, Afebrile Neuro: No Gross deficits Cardiovascular: Regular Rate and Rhythm Respiratory: No Respiratory Distress, Clear to Auscultation GI: Soft and Non-Tender Psych: Alert & Oriented X3, Appropriate Mood & Affect Result Diagram: 12/02/1860312/02/18603 Assessment and Plan Problems: (1) Urinary tract infection Status: Acute Assessment & Plan: Recurrent. She was started on IV Rocephin. Her urine culture from her last inpatient stay in October grew pansensitive E. coli. Current urine culture is negative. Rocephin was stopped after three doses. She will be placed on Macrobid for preventative UTI treatment per Dr. Jara. (2) Bradycardia Status: Acute Assessment & Plan: Heart rate was in the 40s at times. Her digoxin level was high at 2.1. We held the digoxin and carvedilol initially. Her HR is now into 90-110 range. We will restart the carvedilol and digoxin for now. Monitor. (3) Failure to thrive syndrome, adult Status: Chronic Assessment & Plan: The patient has had recurrent admissions for failure to thrive. Will have Speech Language Pathology see for cognitive evaluation. At present, her short term memory is poor. Will have social work faculty member see for disposition planning. (4) Dizziness Status: Acute Assessment & Plan: Improved with hydration (and getting her glasses). Will saline lock now. Will also have PT evaluate as she has had frequent falls at home. CT scan was negative. (5) Acute renal failure Status: Acute Assessment & Plan: Likely due to dehydration. Her creatinine is 0.9 today and was 1.2 at discharge on 10/26/18. Will continue to monitor. (6) Pressure ulcer Status: Acute Assessment & Plan: Will have PT wound care evaluate/treat as needed, Try to keep pressure off the area. (7) Anemia Status: Chronic Assessment & Plan: Chronic. Monitor. (8) Hematuria Status: Chronic Assessment & Plan: The patient has had ongoing hematuria, but has also had recurrent infections. A recent CT showed thickening of the bladder wall. She sees Dr. Jara and was to follow up with him after her last discharge, but has not yet done so. He has recommended cystoscopy. (9) Recurrent falls Status: Chronic Assessment & Plan: The patient admits to falling frequently. She was seen in the ER on November 23 after a fall. PT to see and evaluate. (10) CHRONIC ATRIAL FIBRILLATION Status: Chronic Assessment & Plan: Will now resume her Xarelto 15mg daily (initially held due to hematuria). Will continue to hold digoxin due to elevated level. Carvedilol w ill be restarted. Monitor on telemetry. (11) CKD (chronic kidney disease) stage 3, GFR 30-59 ml/min Status: Chronic Assessment & Plan: Baseline creatinine is about 1.2. (12) HTN (hypertension) Status: Chronic Assessment & Plan: Will resume amlodipine and carvedilol. (13) CAD (coronary artery disease) Status: Chronic Assessment & Plan: Continue atorvastatin and O2. Resume carvedilol. (14) Heart failure with reduced ejection fraction Status: Chronic Assessment & Plan: Hold Lasix for now due to dehydration. Resume carvedilol (see above). (15) Bladder wall thickening Status: Chronic Assessment & Plan: She will need to follow up with Dr. Jara for further evaluation. (16) Type II diabetes mellitus Status: Chronic Assessment & Plan: Will continue to monitor glucoses AC/HS. Increase NPH 20u BID plus SSI. She is not sure what she has been taking at home to treat her type II DM. She had been on NPH insulin 40u BID and Lispro per SSI per her recent discharge summary. (17) Follicular non-Hodgkin's lymphoma Status: Chronic Assessment & Plan: [facility]. She does have hypogammaglobulinemia as a result. She is not currently receiving treatment. Exam Sepsis Risk: No Definite Risk Problem Qualifiers (1) Urinary tract infection: Urinary tract infection type: acute cystitis Hematuria presence: with hematuria Qualified Codes: N30.01 - Acute cystitis with hematuria (2) Failure to thrive syndrome, adult: Failure to thrive age range: in adult Qualified Codes: R62.7 - Adult failure to thrive (3) HTN (hypertension): Hypertension type: essential hypertension Qualified Codes: I10 - Essential (primary) hypertension MARIAJOSE RODARTE Dec 04, 2018 11:57
[2018-12-04 15:15] VITALS: BP 157/70
--- NOTE | 2018-12-04 16:16 | Medical Nutrition Therapy ---
Nutrition Anthropometrics Height (Inches): 67.00 Height (Calculated Centimeters: 170.771961 Weight (Pounds): 154 Weight (Calculated Kilograms): 70.023 BMI: 24.2 Arnoldo Nutrition Score: Adequate Arnoldo Nutrition Risk Score: 18 Dietary Referral Nutrition Risk Factors: Special Diet Nutrition Risk Comment: Physical Findings Physical Appearance: Skin Appearance Skin Appearance: Edema Edema Location Modifier: Both Edema Location: Lower Extremity Type of Edema: Degree of Edema: 1+ Gastrointestinal Symptoms GI Symtoms: Nausea Tube Present: Bowel Sounds: Recent Bowel Pattern: Stool Characteristics: Nutritional Diagnosis Nutritional Risk Acuity 1: Acute/ES Renal, Fail to Thrive Nutritional Risk Acuity 2: Chronic Renal Failure Nutritional Risk Acuity 4: Good Appetite Past Medical History: CAD, HTN, T2DM, CKD-3, non-Hodkins lymphoma, CHF, chronic edema, chronic UTI, hypercholesteremia, urinary incontinence, chronic renal disease, pulmonary nodule, GI bleed, anemia, ribs (multiple fractures), hypogammagloblinemia, lumbosacral spinal surgery, tonsillectomy, and cataract extraction and CABG. Nutritional Acuity: 1-High Nutrition Diagnosis: Inappropriate Carb Intake Nutrition Etiology: Physiological Causes Nutrition Problem/Etiology/Sym: Inappropriate carb intake as related to physiological causes as evidenced by whole blood glucose of 280-362 Energy Requirement: 1629 (m st jeor X 1.1 X 1.2) Protein Requirement: 56 (0.8 g protein/kg) Fluid Requirement: 1629 (1mL/kcal) Diet Type: Diet as Tolerated FERNANDO/REG Nutrition Intervention: Cont diet as ordered, Encourage intake, Check glucose Drug: Diuretics Drug/Nutrition Recommendations: Potassium Supplement Nutrition Monitoring & Eval Nutrition Goals: Eat 75-100% Meal Nutrition Follow-Up: Good Intake RD Patient Assessment Time: [address] Assessment Type: RD Re-Assessment Patient Nutrition Acuity: 1-High Follow Up Date: Dec 08, 2018 Nutritional Comment: Pt admitted with weakness and confusion. Dx with UTI, bradycardia, FTT, dizziness, ARF, pressure ulcer, and hematuria. Pt taking insulin. Pt on ADA diet with no reported intakes. Pt RCB of 3.78, hgb of 10.2, and hct of 32.1 are decreased. Whole blood glucose of 181-276 are elevated. Total protein of 5.8 is decreased. Na of 136 is decreased. Monitor blood glucose and for adequate intake. -AKG 12/01 Pt continues on ADA diet with 100% intakes. Whole blood glucose has ranged from 280-362, quite elevated. Pt is on insulin and rivaroxaban. Pt reports nausea. 1+ pitting edema in BLE. creatinine of 1.20 is elevate. Monitor for adequate intake and blood glucose.-AKG 12/04 Pt cont FERNANOD, intake average 90%. BG cont elevated but has improved ranging 114-280 past 3 dasy. Al declied to 2.8, Pt on K+ depleting duiretic, pt is recieving K+ supplement. K+ has declined to 3.56 but cont WNR. Creatinine at 0.9 is WNR, BUN at 9 is WNR. Cont to monitor and encourage intake. RAS LUJAN Dec 04, 2018 16:16
--- NOTE | 2018-12-04 16:50 | NUR ---
Physical Therapy Impression Pt was SBA for bed mobility with head of bed raised and SBA for sit to/from stand transfers with FWW. Pt was SBA/CGA for ambulation in hallway and was agreeable to walk a longer distance x 150'. Upon return to room, pt requested to toilet and noted that she was again incontinent. Pt required assistance to doff brief, but was able to don fresh brief indep. Pt required cues and assistance for proper pericare to wipe from front to back in order to minimize risk of infection. Physical Therapy Goals 1. Pt to be modified indep with bed mobility and sup<>sit trnsfr 2. Pt to be modified indep with sit to/from stand trnsfr 3. Pt to ambulate x 150' with FWW and Modified indep without loss of balance 4. Pt to lo up/down small platform step to simulate threshold to home with FWW and SBA/Modified indep Patient's Goals
[2018-12-04 18:57] VITALS: BP 157/68
[2018-12-04] MEDS: NITROFURANTOIN MACROCRYSTALS 50 MG PO SCH (20:19)
[2018-12-05 08:20] VITALS: BP 146/70
[2018-12-05] MEDS: INSULIN HUM ISO(NPH) 100 UN/ML 3 ML VIAL SUBQ SCH ×2 (08:57→17:03)
[2018-12-05] MEDS: ATORVASTATIN 10 MG TAB PO SCH (08:59)
[2018-12-05] MEDS: CARVEDILOL 25 MG TABLET PO SCH ×2 (08:59→20:50)
[2018-12-05] MEDS: INSULIN HUM LISPRO 100 UN/ML 3 ML VIAL SUBQ PRN ×4 (08:59→20:51)
[2018-12-05] MEDS: GABAPENTIN 300 MG CAP PO SCH ×2 (08:59→20:50)
[2018-12-05] MEDS ORDERED: FUROSEMIDE 40 MG TAB PO SCH (09:00)
[2018-12-05] MEDS ORDERED: POTASSIUM CHL 10 MEQ TABCR PO SCH (09:00)
[2018-12-05] MEDS: amLODIPine BESYL(*) 5 MG TAB PO SCH (09:01)
[2018-12-05] MEDS: DIGOXIN 0.125 MG TAB PO SCH (09:01)
--- NOTE | 2018-12-05 10:07 | Hospitalist Progress Note ---
Subjective Progress Notes Subjective [facility] She has no complaints. She had no acute events overnight. Patient Complains of: Cardiovascular: No: Chest Pain Respiratory: No: Shortness of Breath Physical Exam Vital Signs Date Time Temp Pulse Resp B/P (MAP) Pulse Ox O2 Delivery O2 Flow Rate FiO2 12/05/18 09:01 73 12/05/18 08:20 96.9 16 146/70 (95) 95 Nasal Cannula 2.0 Intake and Output 12/05/18 01:00 Intake Total 400 ml Balance 400 ml Intake Oral 400 ml # Voids 9 # Bowel Movements 2 General Appearance: Alert, Awake, No Acute Distress, Afebrile Neuro: No Gross deficits Cardiovascular: Regular Rate and Rhythm Respiratory: No Respiratory Distress, Clear to Auscultation GI: Soft and Non-Tender Psych: Alert & Oriented X3, Appropriate Mood & Affect Result Diagram: 12/02/1860312/02/18603 Assessment and Plan Problems: (1) Urinary tract infection Status: Acute Assessment & Plan: Recurrent. She was started on IV Rocephin. Her urine c ulture from her last inpatient stay in October grew pansensitive E. coli. Current urine culture is negative. Rocephin was stopped after three doses. She will be placed on Macrobid for preventative UTI treatment per Dr. Jara. (2) Bradycardia Status: Acute Assessment & Plan: Heart rate was in the 40s at times. Her digoxin level was h igh at 2.1. We held the digoxin and carvedilol initially. Her HR is now into 90- 110 range. We will restart the carvedilol and digoxin for now. Monitor. (3) Failure to thrive syndrome, adult Status: Chronic Assessment & Plan: The patient has had recurrent admissions for failure to thrive. Speech Language Pathology evaluated patient, patient exhibits mild cognitive defect. At present, her short term memory is poor. Will have social and human services assistant see for disposition planning. Recommend [facility]/ SNF. (4) Dizziness Status: Acute Assessment & Plan: Improved with hydration (and getting her glasses). Will saline lock now. Will also have PT evaluate as she has had frequent falls at home. CT scan was negative. (5) Acute renal failure Status: Acute Assessment & Plan: Likely due to dehydration. Her creatinine is 0.9 today and was 1.2 at discharge on 10/26/18. Will continue to monitor. (6) Pressure ulcer Status: Acute Assessment & Plan: Will have PT wound care evaluate/treat as needed, Try to keep pressure off the area. (7) Anemia Status: Chronic Assessment & Plan: Chronic. Monitor. (8) Hematuria Status: Chronic Assessment & Plan: The patient has had ongoing hematuria, but has also had recurrent infections. A recent CT showed thickening of the bladder wall. She sees Dr. Jara and was to follow up with him after her last discharge, but has not yet done so. He has recommended cystoscopy. (9) Recurrent falls Status: Chronic Assessment & Plan: The patient admits to falling frequently. She was seen in the ER on November 23 after a fall. PT to see and evaluate. (10) CHRONIC ATRIAL FIBRILLATION Status: Chronic Assessment & Plan: Will now resume her Xarelto 15mg daily (initially held due to hematuria). Carvedilol and Digoxin restarted. Monitor on telemetry. (11) CKD (chronic kidney disease) stage 3, GFR 30-59 ml/min Status: Chronic Assessment & Plan: Baseline creatinine is about 1.2. (12) HTN (hypertension) Status: Chronic Assessment & Plan: Will resume amlodipine and carvedilol. (13) CAD (coronary artery disease) Status: Chronic Assessment & Plan: Continue atorvastatin and O2. Resume carvedilol. (14) Heart failure with reduced ejection fraction Status: Chronic Assessment & Plan: Hold Lasix for now due to dehydration. Resume carvedilol (see above). (15) Bladder wall thickening Status: Chronic Assessment & Plan: She will need to follow up with Dr. Jara for further evaluation. (16) Type II diabetes mellitus Status: Chronic Assessment & Plan: Will continue to monitor glucoses AC/HS. Increase NPH 20u BID plus SSI. She is not sure what she has been taking at home to treat her type II DM. She had been on NPH insulin 40u BID and Lispro per SSI per her recent jarett arroyo summary. (17) Follicular non-Hodgkin's lymphoma Status: Chronic Assessment & Plan: [facility]. She does have hypogammaglobulinemia as a result. She is not currently receiving treatment. Exam Sepsis Risk: No Definite Risk Problem Qualifiers (1) Urinary tract infection: Urinary tract infection type: acute cystitis Hematuria presence: with hematuria Qualified Codes: N30.01 - Acute cystitis with hematuria (2) Failure to thrive syndrome, adult: Failure to thrive age range: in adult Qualified Codes: R62.7 - Adult failure to thrive (3) HTN (hypertension): Hypertension type: essential hypertension Qualified Codes: I10 - Essential (primary) hypertension MARIAJOSE RODARTEP Dec 05, 2018 10:06
--- NOTE | 2018-12-05 11:24 | NUR ---
Occupational Therapy Impression Independent toileting. Independent oral care standing sinkfront. SBA ambulation in room with RW and x175ft with RW. Pt with improved (I) for ADLs. VSS throughout. Pt has met skilled OT goals, will follow as awaiting placement. Continue to recommend [facility] or SNF for assist with ADLs/IADLs when needed. Occupational Therapy Goals 1) Pt will be SBA UB/LB dressing. 2) Pt will be SBA grooming/hygiene. 3) Pt will be CGA toilet task. Patient's Goal
[2018-12-05] MEDS: ACETAMINOPHEN 500 MG TAB PO PRN ×2 (11:30→19:59)
--- NOTE | 2018-12-05 13:38 | NUR ---
Physical Therapy Impression Pt completed bed mobility with Tyra, but with HOB raised for supine to sit and HOB flat for sit to supine. Transfers completed with SBA and use of RW. Ambulation x150' with RW with PT cues for proximity to walker with ambulation. Physical Therapy Goals 1. Pt to be modified indep with bed mobility and sup<>sit trnsfr 2. Pt to be modified indep with sit to/from stand trnsfr 3. Pt to ambulate x 150' with FWW and Modified indep without loss of balance 4. Pt to lo up/down small platform step to simulate threshold to home with FWW and SBA/Modified indep Patient's Goals
[2018-12-05 15:08] VITALS: BP 162/88
[2018-12-05 19:02] VITALS: BP 160/81
[2018-12-05] MEDS: NITROFURANTOIN MACROCRYSTALS 50 MG PO SCH (20:50)
[2018-12-06 04:21] VITALS: BP 177/80
[2018-12-06 05:38] LABS: PLATELET COUNT, AUTOMATED 253 K/uL (150-450)
[2018-12-06 06:37] VITALS: BP 148/76
[2018-12-06] MEDS: INSULIN HUM LISPRO 100 UN/ML 3 ML VIAL SUBQ PRN ×4 (08:05→20:55)
[2018-12-06] MEDS: INSULIN HUM ISO(NPH) 100 UN/ML 3 ML VIAL SUBQ SCH ×2 (08:05→16:38)
[2018-12-06] MEDS ORDERED: POTASSIUM CHL 20 MEQ TABCR PO SCH (09:00)
[2018-12-06] MEDS: amLODIPine BESYL(*) 5 MG TAB PO SCH (09:07)
[2018-12-06] MEDS: FUROSEMIDE 20 MG TAB PO SCH (09:07)
[2018-12-06] MEDS: ATORVASTATIN 10 MG TAB PO SCH (09:09)
[2018-12-06] MEDS: DIGOXIN 0.125 MG TAB PO SCH (09:09)
[2018-12-06] MEDS: CARVEDILOL 25 MG TABLET PO SCH ×2 (09:09→20:51)
[2018-12-06] MEDS: GABAPENTIN 300 MG CAP PO SCH ×2 (09:09→20:51)
--- NOTE | 2018-12-06 10:13 | Hospitalist Progress Note ---
Subjective Progress Notes Subjective She has complaints of the dose of Lasix. She reports she doesn't like taking her usual 40mg dose. She would like the dose reduced. Otherwise, she has no complaints. Patient Complains of: Cardiovascular: No: Chest Pain Respiratory: No: Shortness of Breath Physical Exam Vital Signs Date Time Temp Pulse Resp B/P (MAP) Pulse Ox O2 Delivery O2 Flow Rate FiO2 12/06/18 09:12 93 Nasal Cannula 2.0 12/06/18 09:09 86 12/06/18 06:37 98.4 18 148/76 (100) Intake and Output 12/06/18 07:00 Intake Total 702 ml Balance 702 ml Intake Oral 702 ml # Voids 11 # Bowel Movements 1 General Appearance: Alert, Awake, No Acute Distress, Afebrile Neuro: No Gross deficits Cardiovascular: Regular Rate and Rhythm Respiratory: No Respiratory Distress, Clear to Auscultation Extremities: Warm, Perfused; No Edema Psych: Alert & Oriented X3, Appropriate Mood & Affect Result Diagram: 12/06/1827 12/06/18526 Assessment and Plan Problems: (1) Urinary tract infection Status: Acute Assessment & Plan: Recurrent. She was started on IV Rocephin. Her urine culture from her last inpatient stay in October grew pansensitive E. coli. Current urine culture is negative. Rocephin was stopped after three doses. She will be placed on Macrobid for preventative UTI treatment per Dr. Jara. (2) Bradycardia Status: Acute Assessment & Plan: Heart rate was in the 40s at times. Her digoxin level was high at 2.1. We held the digoxin and carvedilol initially. Her HR is now into 90-110 range. We will restart the carvedilol and digoxin for now. Monitor. (3) Failure to thrive syndrome, adult Status: Chronic Assessment & Plan: The patient has had recurrent admissions for failure to thrive. Speech Language Pathology evaluated patient, patient exhibits mild cognitive defect. At present, her short term memory is poor. Will have case management social worker see for disposition planning. Recommend [facility]/ SNF. (4) Dizziness Status: Acute Assessment & Plan: Improved with hydration (and getting her glasses). Will saline lock now. Will also have PT evaluate as she has had frequent falls at home. CT scan was negative. (5) Acute renal failure Status: Acute Assessment & Plan: Likely due to dehydration. Her creatinine is 1.0 and was 1.2 at discharge on 10/26/18. Will continue to monitor. (6) Pressure ulcer Status: Acute Assessment & Plan: Will have PT wound care evaluate/treat as needed, Try to keep pressure off the area. (7) Anemia Status: Chronic Assessment & Plan: Chronic. Monitor. (8) Hematuria Status: Chronic Assessment & Plan: The patient has had ongoing hematuria, but has also had recurrent infections. A recent CT showed thickening of the bladder wall. She sees Dr. Jara and was to follow up with him after her last discharge, but has not yet done so. He has recommended cystoscopy. (9) Recurrent falls Status: Chronic Assessment & Plan: The patient admits to falling frequently. She was seen in the ER on November 23 after a fall. PT to see and evaluate. (10) CHRONIC ATRIAL FIBRILLATION Status: Chronic Assessment & Plan: Will now resume her Xarelto 15mg daily (initially held due to hematuria). Carvedilol and Digoxin restarted. Monitor on telemetry. (11) CKD (chronic kidney disease) stage 3, GFR 30-59 ml/min Status: Chronic Assessment & Plan: Baseline creatinine is about 1.2. (12) HTN (hypertension) Status: Chronic Assessment & Plan: Will resume amlodipine and carvedilol. Will increase amlodipine for elevated blood pressures. (13) CAD (coronary artery disease) Status: Chronic Assessment & Plan: Continue atorvastatin and O2. Resume carvedilol. (14) Heart failure with reduced ejection fraction Status: Chronic Assessment & Plan: Lasix resumed at lower dose. Resume carvedilol (see above). (15) Bladder wall thickening Status: Chronic Assessment & Plan: She will need to follow up with Dr. Jara for further evaluation. (16) Type II diabetes mellitus Status: Chronic Assessment & Plan: Will continue to monitor glucoses AC/HS. Increase NPH 30u BID plus SSI. She is not sure what she has been taking at home to treat her type II DM. She had been on NPH insulin 40u BID and Lispro per SSI per her recent discharge summary. (17) Follicular non-Hodgkin's lymphoma Status: Chronic Assessment & Plan: [facility] She does have hypogammaglobulinemia as a result. She is not currently receiving treatment. Exam Sepsis Risk: No Definite Risk Problem Qualifiers (1) Urinary tract infection: Urinary tract infection type: acute cystitis Hematuria presence: with hematu ghulam Qualified Codes: N30.01 - Acute cystitis with hematuria (2) Failure to thrive syndrome, adult: Failure to thrive age range: in adult Qualified Codes: R62.7 - Adult failure to thrive (3) HTN (hypertension): Hypertension type: essential hypertension Qualified Codes: I10 - Essential (primary) hypertension MARIAJOSE RODARTE NEWSPAPER LIBRARY MANAGER Dec 06, 2018 10:12
--- NOTE | 2018-12-06 14:27 | NUR ---
Occupational Therapy Impression Mod (I) supine to sit with HOB raised. SBA ambulation x75ft with RW. Independent LB dressing. Independent grooming, seated. Independent toileting including changing brief and patricia-care. Skilled OT goals met. No further visits planned at this time. Continue to recommend supervision due to variable (I) with function. Continue to recommend [facility] or SNF for assist with ADLs/IADLs when needed. Occupational Therapy Goals 1) Pt will be SBA UB/LB dressing. 2) Pt will be SBA grooming/hygiene. 3) Pt will be CGA toilet task. Patient's Goal
[2018-12-06 15:02] VITALS: BP 154/73
[2018-12-06 19:03] VITALS: BP 162/74
[2018-12-06] MEDS: ACETAMINOPHEN 500 MG TAB PO PRN (20:56)
[2018-12-06] MEDS: NITROFURANTOIN MACROCRYSTALS 50 MG PO SCH (20:57)
[2018-12-06 23:50] VITALS: BP 169/89
[2018-12-07 03:13] VITALS: BP 169/79
[2018-12-07] MEDS: INSULIN HUM ISO(NPH) 100 UN/ML 3 ML VIAL SUBQ SCH ×2 (07:45→16:44)
[2018-12-07 07:47] VITALS: BP 148/84
--- NOTE | 2018-12-07 11:05 | Hospitalist Progress Note ---
Subjective Progress Notes Subjective No new concerns/complaints. Physical Exam Vital Signs Date Time Temp Pulse Resp B/P (MAP) Pulse Ox O2 Delivery O2 Flow Rate FiO2 12/07/18 08:22 96 Nasal Cannula 2.0 12/07/18 07:47 98.0 72 148/84 (105) 12/07/18 03:13 16 Intake and Output 12/07/18 07:00 Intake Total 1100 ml Balance 1100 ml Intake Oral 1100 ml # Voids 5 # Bowel Movements 1 General Appearance: Alert, Awake, No Acute Distress Neuro: No Gross deficits Cardiovascular: Regular Rate and Rhythm Respiratory: Clear to Auscultation GI: Soft and Non-Tender Extremities: Warm, Perfused Psych: Appropriate Mood & Affect Result Diagram: 12/06/1827 12/07/18 05 Assessment and Plan Problems: (1) Urinary tract infection Status: Acute Assessment & Plan: Recurrent. She was started on IV Rocephin. Her urine culture from her last inpatient stay in October grew pansensitive E. coli. Current urine culture is negative. Rocephin was stopped after three doses. She will be placed on Macrobid for preventative UTI treatment per Dr. Jara. (2) Bradycardia Status: Acute Assessment & Plan: Heart rate was in the 40s at times. Her digoxin level was high at 2.1. We held the digoxin and carvedilol initially. Her HR is now into 90-110 range. We will restart the carvedilol and digoxin for now. Monitor. (3) Failure to thrive syndrome, adult Status: Chronic Assessment & Plan: The patient has had recurrent admissions for failure to thrive. Speech Language Pathology evaluated patient, patient exhibits mild cognitive defect. At present, her short term memory is poor. Will have social service assistant see for disposition planning. Recommend [facility]/ SNF. (4) Dizziness Status: Acute Assessment & Plan: Improved with hydration (and getting her glasses). Will saline lock now. Will also have PT evaluate as she has had frequent falls at home. CT scan was negative. (5) Acute renal failure Status: Acute Assessment & Plan: Likely due to dehydration. Her creatinine is 1.0 and was 1.2 at discharge on 10/26/18. Will continue to monitor. (6) Pressure ulcer Status: Acute Assessment & Plan: Will have PT wound care evaluate/treat as needed, Try to keep pressure off the area. (7) Anemia Status: Chronic Assessment & Plan: Chronic. Monitor. (8) Hematuria Status: Chronic Assessment & Plan: The patient has had ongoing hematuria, but has also had recurrent infections. A recent CT showed thickening of the bladder wall. She sees Dr. Jara and was to follow up with him after her last discharge, but has not yet done so. He has recommended cystoscopy. (9) Recurrent falls Status: Chronic Assessment & Plan: The patient admits to falling frequently. She was seen in the ER on November 23 after a fall. PT to see and evaluate. (10) CHRONIC ATRIAL FIBRILLATION Status: Chronic Assessment & Plan: Will now resume her Xarelto 15mg daily (initially held due to hematuria). Carvedilol and Digoxin restarted. Monitor on telemetry. (11) CKD (chronic kidney disease) stage 3, GFR 30-59 ml/min Status: Chronic Assessment & Plan: Baseline creatinine is about 1.2. (12) HTN (hypertension) Status: Chronic Assessment & Plan: Will resume amlodipine and carvedilol. Will increase amlodipine for elevated blood pressures. (13) CAD (coronary artery disease) Status: Chronic Assessment & Plan: Continue atorvastatin and O2. Resume carvedilol. (14) Heart failure with reduced ejection fraction Status: Chronic Assessment & Plan: Lasix resumed at lower dose. Resume carvedilol (see above). (15) Bladder wall thickening Status: Chronic Assessment & Plan: She will need to follow up with Dr. Jara for further evaluation. (16) Type II diabetes mellitus Status: Chronic Assessment & Plan: Will continue to monitor glucoses AC/HS. Increase NPH 30u BID plus SSI. She is not sure what she has been taking at home to treat her type II DM. She had been on NPH insulin 40u BID and Lispro per SSI per her recent discharge summary. (17) Follicular non-Hodgkin's lymphoma Status: Chronic Assessment & Plan: [facility] by [facility]. She does have hypogammaglobulinemia as a result. She is not currently receiving treatment. Time Spent on Plan of Care: < 30 min Exam Sepsis Risk: No Definite Risk Problem Qualifiers (1) Urinary tract infection: Urinary tract infection type: acute cystitis Hematuria presence: with hematuria Qualified Codes: N30.01 - Acute cystitis with hematuria (2) Failure to thrive syndrome, adult: Failure to thrive age range: in adult Qualified Codes: R62.7 - Adult failure to thrive (3) HTN (hypertension): Hypertension type: essential hypertension Qualified Codes: I10 - Essential (primary) hypertension YARELI THURMAN MD Dec 07, 2018 11:05
[2018-12-07] MEDS: GABAPENTIN 300 MG CAP PO SCH ×2 (11:31→20:25)
[2018-12-07] MEDS: amLODIPine BESYL(*) 5 MG TAB PO SCH (11:32)
[2018-12-07] MEDS: POTASSIUM CHL 20 MEQ TABCR PO SCH ×2 (11:32→17:16)
[2018-12-07] MEDS: CARVEDILOL 25 MG TABLET PO SCH ×2 (11:32→20:25)
[2018-12-07] MEDS: RIVAROXABAN 10 MG TAB PO SCH (11:32)
[2018-12-07] MEDS: ATORVASTATIN 10 MG TAB PO SCH (11:33)
[2018-12-07] MEDS: DIGOXIN 0.125 MG TAB PO SCH (11:33)
[2018-12-07] MEDS: FUROSEMIDE 20 MG TAB PO SCH (11:33)
[2018-12-07] MEDS: INSULIN HUM LISPRO 100 UN/ML 3 ML VIAL SUBQ PRN ×3 (11:40→20:30)
--- NOTE | 2018-12-07 12:21 | NUR ---
Physical Therapy Impression Pt ambulated x150' with RW, 2L O2 and SBA/CGA. Pt required 3 standing rest breaks for completion. Pt continues to require HOB elevated for supine>sit transfers. Physical Therapy Goals 1. Pt to be modified indep with bed mobility and sup<>sit trnsfr 2. Pt to be modified indep with sit to/from stand trnsfr 3. Pt to ambulate x 150' with FWW and Modified indep without loss of balance 4. Pt to lo up/down small platform step to simulate threshold to home with FWW and SBA/Modified indep Patient's Goals
[2018-12-07 15:14] VITALS: BP 152/83
[2018-12-07 19:21] VITALS: BP 153/83
[2018-12-07] MEDS: ACETAMINOPHEN 500 MG TAB PO PRN (20:25)
[2018-12-07] MEDS: NITROFURANTOIN MACROCRYSTALS 50 MG PO SCH (20:26)
[2018-12-08 05:43] LABS: PLATELET COUNT, AUTOMATED 276 K/uL (150-450)
[2018-12-08 07:28] VITALS: BP 168/79
[2018-12-08] MEDS: POTASSIUM CHL 20 MEQ TABCR PO SCH (08:11)
[2018-12-08] MEDS: INSULIN HUM ISO(NPH) 100 UN/ML 3 ML VIAL SUBQ SCH ×2 (08:12→16:55)
[2018-12-08] MEDS: INSULIN HUM LISPRO 100 UN/ML 3 ML VIAL SUBQ PRN ×4 (08:12→21:12)
[2018-12-08 08:19] VITALS: BP 141/81
[2018-12-08] MEDS: CARVEDILOL 25 MG TABLET PO SCH ×2 (08:25→21:11)
[2018-12-08] MEDS: ATORVASTATIN 10 MG TAB PO SCH (08:25)
[2018-12-08] MEDS: FUROSEMIDE 20 MG TAB PO SCH (08:25)
[2018-12-08] MEDS: DIGOXIN 0.125 MG TAB PO SCH (08:26)
[2018-12-08] MEDS: GABAPENTIN 300 MG CAP PO SCH ×2 (08:26→21:11)
[2018-12-08] MEDS: amLODIPine BESYL(*) 5 MG TAB PO SCH (08:26)
--- NOTE | 2018-12-08 09:39 | Medical Nutrition Therapy ---
Nutrition Anthropometrics Height (Inches): 67.00 Height (Calculated Centimeters: 170.685146 Weight (Pounds): 154 Weight (Calculated Kilograms): 70.023 BMI: 24.2 Arnoldo Nutrition Score: Adequate Arnoldo Nutrition Risk Score: 15 Dietary Referral Nutrition Risk Factors: Special Diet Nutrition Risk Comment: Physical Findings Physical Appearance: Skin Appearance Skin Appearance: Edema Edema Location Modifier: Both Edema Location: Lower Extremity Type of Edema: Degree of Edema: 1+ Gastrointestinal Symptoms GI Symtoms: Nausea Tube Present: Bowel Sounds: Recent Bowel Pattern: Stool Characteristics: Nutritional Diagnosis Nutritional Risk Acuity 1: Acute/ES Renal, Fail to Thrive Nutritional Risk Acuity 2: Chronic Renal Failure, Blood Glucose > 300mg/dl Nutritional Risk Acuity 4: Good Appetite Past Medical History: CAD, HTN, T2DM, CKD-3, non-Hodkins lymphoma, CHF, chronic edema, chronic UTI, hypercholesteremia, urinary incontinence, chronic renal disease, pulmonary nodule, GI bleed, anemia, ribs (multiple fractures), hypogammagloblinemia, lumbosacral spinal surgery, tonsillectomy, and cataract extraction and CABG. Nutritional Acuity: 1-High Nutrition Diagnosis: Inappropriate Carb Intake Nutrition Etiology: Physiological Causes Nutrition Problem/Etiology/Sym: Inappropriate carb intake as related to physiological causes as evidenced by whole blood glucose of 280-362 Energy Requirement: 1629 (m st jeor X 1.1 X 1.2) Protein Requirement: 56 (0.8 g protein/kg) Fluid Requirement: 1629 (1mL/kcal) Diet Type: Diet as Tolerated FERNANDO/REG Nutrition Intervention: Cont diet as ordered, Encourage intake, Check glucose Drug: Diuretics Drug/Nutrition Recommendations: Potassium Supplement Nutrition Monitoring & Eval Nutrition Goals: Eat 50-100% Meal Nutrition Follow-Up: Good Intake Nutrition Monitoring: Pt consuming 100% of ADA diet RD Patient Assessment Time: [address] Assessment Type: RD Re-Assessment Patient Nutrition Acuity: 1-High Follow Up Date: Dec 11, 2018 Nutritional Comment: Pt admitted with weakness and confusion. Dx with UTI, bradycardia, FTT, dizziness, ARF, pressure ulcer, and hematuria. Pt taking insulin. Pt on ADA diet with no reported intakes. Pt RCB of 3.78, hgb of 10.2, and hct of 32.1 are decreased. Whole blood glucose of 181-276 are elevated. Total protein of 5.8 is decreased. Na of 136 is decreased. Monitor blood glucose and for adequate intake. -AKG 12/01 Pt continues on ADA diet with 100% intakes. Whole blood glucose has ranged from 280-362, quite elevated. Pt is on insulin and rivaroxaban. Pt reports nausea. 1+ pitting edema in BLE. creatinine of 1.20 is elevate. Monitor for adequate intake and blood glucose.-AKG 12/04 Pt cont FERNANDO, intake average 90%. BG cont elevated but has improved ranging 114-280 past 3 dasy. Al declied to 2.8, Pt on K+ depleting duiretic, pt is recieving K+ supplement. K+ has declined to 3.56 but cont WNR. Creatinine at 0.9 is WNR, BUN at 9 is WNR. Cont to monitor and encourage intake. BK 12/08/18 Pt continues on the ADA diet with 100% intakes. Pt on insulin, furesomide (k wasting) and rivaroxaban. Whole blodd glucose ranged from 186-322. Random glucose of 153. Continue to monitor for adequate intake. -CHEYANNE PERALTA Dec 08, 2018 09:39
--- NOTE | 2018-12-08 10:16 | Hospitalist Progress Note ---
Subjective Progress Notes Subjective She denies any complaints this AM. Physical Exam Vital Signs Date Time Temp Pulse Resp B/P (MAP) Pulse Ox O2 Delivery O2 Flow Rate FiO2 12/08/18 08:26 82 12/08/18 08:19 141/81 (101) 12/08/18 07:28 98.1 16 94 Nasal Cannula 2.0 Intake and Output 12/08/18 07:00 Intake Total 590 ml Balance 590 ml Intake Oral 590 ml # Voids 5 # Bowel Movements 3 General Appearance: Alert, Awake Cardiovascular: Other (Irregular) Respiratory: Clear to Auscultation GI: Soft and Non-Tender Extremities: Warm, Perfused Result Diagram: 12/08/1852012/08/18520 Assessment and Plan Problems: (1) Urinary tract infection Status: Acute Assessment & Plan: Recurrent. She was started on IV Rocephin. Her urine culture from her last inpatient stay in October grew pansensitive E. coli. Current urine culture is negative. Rocephin was stopped after three doses. She was placed on Macrobid for preventative UTI treatment per Dr. Jara. (2) Bradycardia Status: Acute Assessment & Plan: Heart rate was in the 40s at times. Her digoxin level was high at 2.1. We held the digoxin and carvedilol initially. Her HR is now into 90-110 range. We have restarted the carvedilol and digoxin for now. Monitor. (3) Failure to thrive syndrome, adult Status: Chronic Assessment & Plan: The patient has had recurrent admissions for failure to thrive. Speech Language Pathology evaluated patient, patient exhibits mild c ognitive defect. At present, her short term memory is poor. Will have social service agency director see for disposition planning. Recommended NURSING HOME/ SNF. (4) Dizziness Status: Acute Assessment & Plan: Improved with hydration (and getting her glasses). PT has evaluated also as she has had frequent falls at home. CT scan was negative. (5) Acute renal failure Status: Acute Assessment & Plan: Likely due to dehydration. Will hold/stop her Lasix. Her creatinine is 1.0 and was 1.2 at discharge on 10/26/18. Will continue to monitor. (6) Pressure ulcer Status: Acute Assessment & Plan: Will have PT wound care evaluate/treat as needed, Try to keep pressure off the area. (7) Anemia Status: Chronic Assessment & Plan: Chronic. Monitor. (8) Hematuria Status: Chronic Assessment & Plan: The patient has had ongoing hematuria, but has also had recurrent infections. A recent CT showed thickening of the bladder wall. She sees Dr. Jara and was to follow up with him after her last discharge, but has not yet done so. He has recommended cystoscopy/restart Macrobid prophylaxis. (9) Recurrent falls Status: Chronic Assessment & Plan: The patient admits to falling frequently. She was seen in the ER on November 23 after a fall. PT to see and evaluate. (10) CHRONIC ATRIAL FIBRILLATION Status: Chronic Assessment & Plan: Will now resume her Xarelto 15mg daily (initially held due to hematuria). Carvedilol and Digoxin restarted. Monitor on telemetry. (11) CKD (chronic kidney disease) stage 3, GFR 30-59 ml/min Status: Chronic Assessment & Plan: Baseline creatinine is about 1.2. (12) HTN (hypertension) Status: Chronic Assessment & Plan: We have resumed amlodipine and carvedilol. Will further modify if needed. (13) CAD (coronary artery disease) Status: Chronic Assessment & Plan: Continue atorvastatin and O2. Resume carvedilol. (14) Heart failure with reduced ejection fraction Status: Chronic Assessment & Plan: Lasix currently held/stopped due to recurrent dehydration/renal failure. Resume carvedilol (see above). (15) Bladder wall thickening Status: Chronic Assessment & Plan: She will need to follow up with Dr. Jara for further evaluation. (16) Type II diabetes mellitus Status: Chronic Assessment & Plan: Will continue to monitor glucoses AC/HS. Increase NPH 30u BID plus SSI. She is not sure what she has been taking at home to treat her type II DM. She had been on NPH insulin 40u BID and Lispro per SSI per her recent discharge summary. (17) Follicular non-Hodgkin's lymphoma Status: Chronic Assessment & Plan: Followed by the [facility]. She does have hypogammaglobulinemia as a result. She is not currently receiving treatment. Exam Sepsis Risk: No Definite Risk Problem Qualifiers (1) Urinary tract infection: Urinary tract infection type: acute cystitis Hematuria presence: with hematuria Qualified Codes: N30.01 - Acute cystitis with hematuria (2) Failure to thrive syndrome, adult: Failure to thrive age range: in adult Qualified Codes: R62.7 - Adult failure to thrive (3) HTN (hypertension): Hypertension type: essential hypertension Qualified Codes: I10 - Essential (primary) hypertension RAMIN THURMAN MD Dec 08, 2018 10:16
[2018-12-08] MEDS: RIVAROXABAN 10 MG TAB PO SCH (10:35)
[2018-12-08 11:55] VITALS: BP 147/75
[2018-12-08 19:13] VITALS: BP 147/70
[2018-12-08] MEDS: ACETAMINOPHEN 500 MG TAB PO PRN (20:01)
[2018-12-08] MEDS: NITROFURANTOIN MACROCRYSTALS 50 MG PO SCH (21:11)
[2018-12-09 03:39] VITALS: BP 146/70
[2018-12-09 07:13] VITALS: BP 164/72
[2018-12-09] MEDS: INSULIN HUM ISO(NPH) 100 UN/ML 3 ML VIAL SUBQ SCH (08:00)
[2018-12-09] MEDS: INSULIN HUM LISPRO 100 UN/ML 3 ML VIAL SUBQ PRN (08:00)
[2018-12-09] MEDS: DIGOXIN 0.125 MG TAB PO SCH (08:38)
[2018-12-09] MEDS: CARVEDILOL 25 MG TABLET PO SCH (08:38)
[2018-12-09] MEDS: GABAPENTIN 300 MG CAP PO SCH (08:38)
[2018-12-09] MEDS: RIVAROXABAN 10 MG TAB PO SCH (08:38)
[2018-12-09] MEDS: amLODIPine BESYL(*) 5 MG TAB PO SCH (08:38)
[2018-12-09] MEDS: ATORVASTATIN 10 MG TAB PO SCH (08:38)
[2018-12-09] MEDS: ACETAMINOPHEN 500 MG TAB PO PRN (08:42)
--- NOTE | 2018-12-09 10:58 | Transfer Summary (ECF/SWB) ---
Transfer Summary (ECF/SWB) Problems: (1) Urinary tract infection Status: Acute Assessment & Plan: Recurrent. She was started on IV Rocephin. Her urine culture from her last inpatient stay in October grew pansensitive E. coli. Current urine culture is negative. Rocephin was stopped after three doses. She was placed on Macrobid for preventative UTI treatment per Dr. Jara. (2) Bradycardia Status: Acute Assessment & Plan: Heart rate was in the 40s at times. Her digoxin level was high at 2.1. We held the digoxin and carvedilol initially. Her HR is now into 70-80 range. We have restarted the carvedilol and digoxin for now. Monitor. (3) Failure to thrive syndrome, adult Status: Chronic Assessment & Plan: The patient has had recurrent admissions for failure to thrive. Speech Language Pathology evaluated patient, patient exhibits mild cognitive defect. At present, her short term memory is poor. Will have oncology social work see for disposition planning. Recommended HIREN/ SNF. (4) Dizziness Status: Acute Assessment & Plan: Improved with hydration (and getting her glasses). PT has evaluated also as she has had frequent falls at home. CT scan was negative. (5) Acute renal failure Status: Acute Assessment & Plan: Likely due to dehydration. Will hold/stop her Lasix. Her creatinine is 1.2 and was 1.2 at discharge on 10/26/18. Will continue to monitor. (6) Pressure ulcer Status: Acute Assessment & Plan: Will have PT wound care evaluate/treat as needed, Try to keep pressure off the area. (7) Anemia Status: Chronic Assessment & Plan: Chronic. Monitor. (8) Hematuria Status: Chronic Assessment & Plan: The patient has had ongoing hematuria, but has also had recurrent infections. A recent CT showed thickening of the bladder wall. She sees Dr. Jara and was to follow up with him after her last discharge, but has not yet done so. He has recommended cystoscopy/restart Macrobid prophylaxis. (9) Recurrent falls Status: Chronic Assessment & Plan: The patient admits to falling frequently. She was seen in the ER on November 23 after a fall. PT to see and evaluate. (10) CHRONIC ATRIAL FIBRILLATION Status: Chronic Assessment & Plan: Will now resume her Xarelto 15mg daily (initially held due to hematuria). Carvedilol and Digoxin restarted. Monitor on telemetry. (11) CKD (chronic kidney disease) stage 3, GFR 30-59 ml/min Status: Chronic Assessment & Plan: Baseline creatinine is about 1.2. (12) HTN (hypertension) Status: Chronic Assessment & Plan: We have resumed amlodipine and carvedilol. Will further modify if needed. (13) CAD (coronary artery disease) Status: Chronic Assessment & Plan: Continue atorvastatin and O2. Resume carvedilol. (14) Heart failure with reduced ejection fraction Status: Chronic Assessment & Plan: Lasix currently held/stopped due to recurrent dehydration/renal failure. Resume carvedilol (see above). (15) Bladder wall thickening Status: Chronic Assessment & Plan: She will need to follow up with Dr. Jara for further evaluation. (16) Type II diabetes mellitus Status: Chronic Assessment & Plan: Will continue to monitor glucoses AC/HS. Increase NPH 30u BID plus SSI. She is not sure what she has been taking at home to treat her type II DM. She had been on NPH insulin 40u BID and Lispro per SSI per her recent discharge summary. (17) Follicular non-Hodgkin's lymphoma Status: Chronic Assessment & Plan: [facility]. She does have hypogammaglobulinemia as a result. She is not currently receiving treatment. Latest Vital Signs Vital Signs Date Time Temp Pulse Resp B/P (MAP) Pulse Ox O2 Delivery O2 Flow Rate FiO2 12/09/18 09:08 Nasal Cannula 12/09/18 08:38 83 12/09/18 07:13 98.3 16 164/72 (102) 2.0 12/09/18 03:39 92 Result Diagram: 12/08/18 0521 12/09/18 05 Condition: Improved Disposition: SNF/NH Treatment Goals and Plan Patient requires correction and/or skilled rehabilitation with the goal to increase independence with ADL's, functional strength and mobility. Continue and adjust medication regimen. Problem Qualifiers (1) Urinary tract infection: Urinary tract infection type: acute cystitis Hematuria presence: with hematuria Qualified Codes: N30.01 - Acute cystitis with hematuria (2) Failure to thrive syndrome, adult: Failure to thrive age range: in adult Qualified Codes: R62.7 - Adult failure to thrive (3) HTN (hypertension): Hypertension type: essential hypertension Qualified Codes: I10 - Essential (primary) hypertension MARIAJOSE RODARTE [facility] Dec 09, 2018 10:58
== END 2018-12-09 09:30 | DRG 690 ==
LOC: ER 11:18 → MED 15:09
PROVIDERS: ADMIT Internal Medicine; ATTEND Internal Medicine
DX: N30.01 Acute cystitis with hematuria (principal); N17.9 Acute kidney failure, unspecified; I13.0 Hypertensive heart and chronic kidney disease with heart failure and stage 1 through stage 4 chronic kidney disease, or unspecified chronic kidney disease; I50.22 Chronic systolic (congestive) heart failure; C82.90 Follicular lymphoma, unspecified, unspecified site; D80.1 Nonfamilial hypogammaglobulinemia; R00.1 Bradycardia, unspecified; R62.7 Adult failure to thrive; R42 Dizziness and giddiness; E86.0 Dehydration; D64.9 Anemia, unspecified; I48.2 Chronic atrial fibrillation; E11.22 Type 2 diabetes mellitus with diabetic chronic kidney disease; N18.3 Chronic kidney disease, stage 3 (moderate); I25.10 Atherosclerotic heart disease of native coronary artery without angina pectoris; L89.152 Pressure ulcer of sacral region, stage 2; R53.1 Weakness; Z68.24 Body mass index [BMI] 24.0-24.9, adult; Z91.81 History of falling; Z79.01 Long term (current) use of anticoagulants; Z79.4 Long term (current) use of insulin; Z88.8 Allergy status to other drugs, medicaments and biological substances; Z95.1 Presence of aortocoronary bypass graft
CPT/HCPCS: 36415; 36416; 70450; 80162; 80305; 80320; 80329; 81001; 82040; 82247; 82310; 82374; 82435; 82565; 82947; 82948; 83605; 83735; 84075; 84132; 84155; 84295; 84443; 84450; 84460; 84520; 85025; 87088; 92523; 93005; 96361; 96374; 97161; 97166; 99284; A4353; J0696; J2550; J7030; J7040

== ENCOUNTER → 2018-11-29 | Outpatient (CLI) | payer MEDICARE, OTHER ==
[~2018-11-29] MED LIST changes: +BUPR-136 PO
[2018-11-30 08:49] VITALS: BMI 24.1
== END ==
LOC: AMB 10:38
PROVIDERS: ATTEND Nurse Practitioner
DX: R40.4 Transient alteration of awareness (principal); R53.1 Weakness
CPT/HCPCS: A0425; A0427

== ENCOUNTER 2018-12-09 08:39 | Inpatient (IN) | payer MEDICARE, OTHER ==
[~2018-12-09] VITALS: Ht 170.2 cm; Wt 73.5 kg
[~2018-12-09 08:39] MED LIST changes: +BUPR-136 PO
[2018-12-09] MEDS ORDERED: PROMETHAZINE 25 MG/ML 1 ML AMP IVP PRN (10:09)
[2018-12-09 10:18] VITALS: BP 144/75
--- NOTE | 2018-12-09 10:46 | Consultant Pharmacy Review ---
Commodity Manager Review Medication Review Do All Mecications have a Diag: Yes Beers Criteria Medication 2014 Anti-infectives: Nitrofurantoin (daily at hs) Pneumococcal Vaccine HX Pneumo Vac ([id number]): Yes (2014) HX Pneumo Vac (Pneumovax): Yes (2017) Comments Regarding the Review * * * * Print * Help Lexicomp Interaction Analysis A = No known interaction C = Monitor therapy X = Avoid combination B = No action needed D = Consider therapy modification Drugs in this analysis: Acetaminophen; Coreg; HumaLOG; HumuLIN N [OTC]; Lanoxin; Lipitor; Macrodantin; Melatonin; Neurontin; Norvasc; Xarelto * Drug-Drug Interactions * C Coreg (Beta-Blockers) HumaLOG (Insulins) C Coreg (Beta-Blockers) HumuLIN N [OTC] (Insulins) C Coreg (Carvedilol) Lanoxin (Digoxin) C Coreg (P-glycoprotein/ABCB1 Inhibitors) Lipitor (P-glycoprotein/ABCB1 Substrates) C HumaLOG (Antidiabetic Agents) HumuLIN N [OTC] (Hypoglycemia-Associated Agents) C HumaLOG (Hypoglycemia-Associated Agents) HumuLIN N [OTC] (Hypoglycemia- Associated Agents) C Lanoxin (Digoxin) Lipitor (AtorvaSTATin) C Melatonin Norvasc (Calcium Channel Blockers (Dihydropyridine)) B Coreg (P-glycoprotein/ABCB1 Inhibitors) Xarelto (Rivaroxaban) Depends on Additional drug/group, International labeling, and Renal Function Disclaimer: Readers are advised that decisions regarding drug therapy must be based on the independent judgment YARELI MATTHEW Dec 09, 2018 10:46
--- NOTE | 2018-12-09 11:00 | Consultant Pharmacy Review ---
Insurance Sales Associate Review Other General Cautions Labs: periodic LFTs, digoxin levels, renal function tests; HgA1C, CBC. Patient is up to date with her vaccines. Due to nitrofurantoin use, monitor patient for signs of pulmonary toxicity, such as dyspnea, dry cough and fatigue. Pneumococcal Vaccine HX Pneumo Vac ([id number]): Yes (2014) HX Pneumo Vac (Pneumovax): Yes (2017) YARELI MATTHEW Dec 09, 2018 10:59
[2018-12-09] MEDS: INSULIN HUM LISPRO 100 UN/ML 3 ML VIAL SUBQ PRN ×3 (12:23→21:20)
--- NOTE | 2018-12-09 12:41 | NUR ---
Occupational Therapy Impression SBA ambulation x70ft with RW. V/c's for safely sequencing sit<>stands and managing O2 tubing. SBA toileting. SBA UB/LB dressing. SBA grooming seated. SBA supine to sit with HOB raised. Continue POC. Occupational Therapy Goals 1) Pt Amado Index of ADLs score will improve by two points. 2) Pt will be SBA light meal prep task. 3) Pt will be Independent UB HEP. 4) Pt will demonstrate improved standing tolerance for ADLs indicated by static/dynamic standing [id number] with no rest break. Patient's Goal
--- NOTE | 2018-12-09 12:51 | OT ECF NOTE ---
Type of Note: Initial Note Primary Medical Diagnosis: Weakness. Failure to thrive. Occupational Therapy Evaluation Date: 12/09/18 SUBJECTIVE: Prior Hospitalization: [facility] 11/29/18-12/09/18 Prior Level of Function: Pt has been unsuccessful at home several times (please see EMR). When encouraging pt to discuss what as not going well at home, she is unable to provide insight into challenges at home. Per report, pt was not eating, not taking medications, frequently falling. Per pt, she was eating just fine and taking medications appropriately. The recommendation has been made that she have 24/7 supervision upon discharge. Pt reports that an [facility] type setting would be an appropriate discharge setting that she is agreeable to. Prior Living Status: Alone Community Services: [facility] Home health care Meals on Wheels Home Accessibility: Discussion deferred Equipment Owned: Front wheeled walker Medical Complications/Past Medical History: Please refer to EMR Psychosocial Support: Possibly strained relationship with daughter in town. Two sons that reside outside of [place]. Pain Scale (0-10): None reported at time of evaluation OBJECTIVE: Strength: MMT: Right Left Shoulder Flexion WFL WFL Elbow Flexion WFL WFL Wrist Extension WFL WFL Architecture Analyst WFL WFL (5= normal, 4= good, 3= fair, 2= poor, 1= trace) ROM: Both upper extremities, WFL Sensation:No paraesthesia reported Functional Transfer: Assistive Device: Front wheeled walker, Gait belt Transfer Ability: Verbal cues, SBA ADL: Upper body dressing: Assistive device: None Upper body dressing ability: Set-up Lower body dressing: Assistive device: None Lower body dressing ability: Set-up Toileting: Assistive device: Grab bars Toileting ability: Set-up Grooming/hygiene: Seated Assistive device: None Grooming ability: Set-up Bathing: Assistive device: Bathing ability: N/T Standardized Assessment: Amado Index of Activities of Daily Livin/20 upon initial evaluation (12/09/18). ASSESSMENT: Elena presents to [facility] requiring supervision for ADLs and assist for IADLs. She has been unsuccessful home and it is recommended that she discharge to a supportive environment such as an [facility] or with 24/7 care. She will benefit from skilled OT services to improve activity tolerance and ensure appropriate disposition for discharge to a supervised setting. Problem List/Current Limitations: Decreased activity tolerance Poor safety awareness Lack of motivation Short Term Goals: 1) Pt Amado Index of ADLs score will improve by two points. 2) Pt will be SBA light meal prep task. 3) Pt will be Independent UB HEP. 4) Pt will demonstrate improved standing tolerance for ADLs indicated by static/dynamic standing [id number] with no rest break. Spiral Weaver Goals: Discharge to an [facility] for consistent assist for ADLs/IADLs when needed. Patient Goals: "I think I'm going to [facility]" Pt reporting no further goals to address. Rehabilitation Prognosis: Fair Barriers to Discharge: Discharge planning PLAN: The patient will benefit from skilled occupational therapy services 5 times per week for 2 weeks including: Ther ex ADL training Ther act IADL training Transfer training Adaptive equip training Bed mobility Energy conservation Thank you for this referral. If you have any questions, concerns, or comments about this report or plan, please contact me at . Oma Solano MS, OTR/L Occupational Therapist NIRMAL
--- NOTE | 2018-12-09 13:35 | NUR ---
Physical Therapy Impression PT ECF eval complete. Pt completes bed mobility with SBA and use of bed rails. SBA for transfers and ambulation with RW. Pt ambulates with slowed, shuffling gait pattern, requiring cues for proximity to walker with ambulation-- pt ambulates with a gait speed of 0.38 m/sec indicating need for fall risk intervention and decreased independence with ADLs and IADLs. Per pt report, pt was having multiple falls at home prior to admission, and was admitted with a diagnosis of "failure to thrive", see EMR for details. It was previously recommended that the patient discharge with 24 hr care. It is unclear of pt's discharge disposition at this time, [facility] vs. LTC placement. The patient will benefit from skilled PT services in order to increase tolerance to functional mobility and improve safety prior to d/c. Physical Therapy Goals 1: Pt to complete bed mobility with Tyra and HOB flat with no use of bed rails. 2: Pt to complete transfers with SBA from a variety of surfaces with appropriate AD. 3: Pt to ambulate 200' with SBA and appropriate AD. 4: Pt to asc/desc 4 stairs with railing and CGA to simulate stair negotiation at [facility] in case of fire evacuation. 5: Pt to demonstrate appropriate, safe O2 tubing management with ambulation and SBA. 6: Pt to demonstrate increased gait speed to > 0.38 m/sec to indicate an improvement in function. Patient's Goals
--- NOTE | 2018-12-09 14:20 | PT ECF NOTE ---
Type of Note: Initial Note Primary Medical Diagnosis: Weakness. Failure to thrive. Physical Therapy Evaluation Date: 12/09/18 SUBJECTIVE: Prior Hospitalization: [facility] 11/29/18-12/09/18 Prior Level of Function: Pt was living alone but reports multiple falls at home. She has had multiple re-admissions (see EMR) and was admitted with a diagnosis of failure to thrive. 24 hr care has previously been recommended. Prior Living Status: Alone Community Services: [facility] Home health care Meals on Wheels Home Accessibility: Discussion deferred Equipment Owned: Front wheeled walker Medical Complications/Past Medical History: Please refer to EMR Psychosocial Support: Possibly strained relationship with daughter in town. Two sons that reside outside of [place]. Pain Scale (0-10): None reported at time of evaluation OBJECTIVE: Strength: Right Lower Extremity: DF: 4/5 Knee flexion: 3+/5 Knee extension:3+/5 Hip flexion:3/5 Left Lower Extremity: DF: 4/5 Knee flexion: 3+/5 Knee extension:3+/5 Hip flexion:3/5 ROM: WFL Sensation:No abnormalities noted Other Neuro findings: N/A Bed Mobility: SBA with bed rail Transfers: SBA with RW Gait: SBA x 125' with RW Stairs: NT 10 meter walk test (0.6m/second cannot function independently): 0.38 m/sec ASSESSMENT: PT ECF eval complete. Pt completes bed mobility with SBA and use of bed rails. SBA for transfers and ambulation with RW. Pt ambulates with slowed, shuffling gait pattern, requiring cues for proximity to walker with ambulation-- pt ambulates with a gait speed of 0.38 m/sec indicating need for fall risk intervention and decreased independence with ADLs and IADLs. Per pt report, pt was having multiple falls at home prior to admission, and was admitted with a diagnosis of "failure to thrive", see EMR for details. It was previously recommended that the patient discharge with 24 hr care. It is unclear of pt's discharge disposition at this time, [facility] vs. LTC placement. The patient will benefit from skilled PT services in order to increase tolerance to functional mobility and improve safety prior to d/c. 24 hr care continues to be recommended at d/c d/t pt's failure to thrive in home environment. Problem List/Current Limitations: Decreased activity lo Decreased strength Decreased ROM Decreased balance Poor safety awareness Decreased problem solving Short Term Goals: 1: Pt to complete bed mobility with Tyra and HOB flat with no use of bed rails. 2: Pt to complete transfers with SBA from a variety of surfaces with appropriate AD. 3: Pt to ambulate 200' with SBA and appropriate AD. 4: Pt to asc/desc 4 stairs with railing and CGA to simulate stair negotiation at [facility] in case of fire evacuation. 5: Pt to demonstrate appropriate, safe O2 tubing management with ambulation and SBA. 6: Pt to demonstrate increased gait speed to > 0.38 m/sec to indicate an improvement in function. Sole Inker Goals: Pt to d/c to facility with 24 hr care and increased safety with functional mobility Patient Goals: "Get around better, maybe walk without the walker" Rehabilitation Prognosis: Fair Barriers for Discharge: Pt may be near baseline level of functional mobility PLAN: The patient will benefit from skilled physical therapy services 5 times per week for 2 weeks including: Therapeutic Exercise Therapeutic Activities Transfer Training Gait Training Stair Training Manual Therapy Safety Training Neuromuscular Re-educ. Pt/Caregiver Training Bed Mobility Thank you for this referral. If you have any questions, concerns, or comments about this report or plan, please contact me at . Eli Dahl, PT, DPT MTDD
[2018-12-09 15:59] VITALS: BP 158/68
[2018-12-09] MEDS: INSULIN HUM ISO(NPH) 100 UN/ML 3 ML VIAL SUBQ SCH (17:56)
[2018-12-09] MEDS: NITROFURANTOIN MACROCRYSTALS 50 MG PO SCH (21:19)
[2018-12-09] MEDS: CARVEDILOL 25 MG TABLET PO SCH (21:19)
[2018-12-09] MEDS: MELATONIN 3 MG TAB PO SCH (21:19)
[2018-12-09] MEDS: GABAPENTIN 300 MG CAP PO SCH (21:19)
[2018-12-10] MEDS: ACETAMINOPHEN 500 MG TAB PO PRN (00:45)
[2018-12-10 07:55] VITALS: BP 137/68
[2018-12-10] MEDS: amLODIPine BESYL(*) 5 MG TAB PO SCH (08:17)
[2018-12-10] MEDS: ATORVASTATIN 10 MG TAB PO SCH (08:17)
[2018-12-10] MEDS: INSULIN HUM ISO(NPH) 100 UN/ML 3 ML VIAL SUBQ SCH ×2 (08:17→16:54)
[2018-12-10] MEDS: INSULIN HUM LISPRO 100 UN/ML 3 ML VIAL SUBQ PRN ×4 (08:17→20:36)
[2018-12-10] MEDS: GABAPENTIN 300 MG CAP PO SCH ×2 (08:18→20:32)
[2018-12-10] MEDS: MULTIVITAMINS TAB PO SCH (08:18)
[2018-12-10] MEDS: CARVEDILOL 25 MG TABLET PO SCH ×2 (08:18→20:32)
[2018-12-10] MEDS: DIGOXIN 0.125 MG TAB PO SCH (08:18)
[2018-12-10] MEDS: RIVAROXABAN 10 MG TAB PO SCH (08:19)
--- NOTE | 2018-12-10 10:04 | NUR ---
Occupational Therapy Impression SBA ambulation with RW, improved (I) with O2 tubing management with v/c's provided. Independent toileting. Independent oral care standing sinkfront. Dynamic standing balance x5min, x8min with no loss of balance. Mod (I) bed mobility sit to supine. Pt progressing well towards goals. Occupational Therapy Goals 1) Pt Amado Index of ADLs score will improve by two points. 2) Pt will be SBA light meal prep task. 3) Pt will be Independent UB HEP. 4) Pt will demonstrate improved standing tolerance for ADLs indicated by static/dynamic standing [id number] with no rest break. Patient's Goal
[2018-12-10 12:07] VITALS: Ht 170.2 cm; Wt 73.5 kg
--- NOTE | 2018-12-10 15:42 | NUR ---
Physical Therapy Impression Pt agreeable to participate in therapy for ambulation and TUG test in hallway. Pt adamantly notes that she will not eat in the dining room. Pt encouraged to instead ambulate to/from dining room at each meal time to improve strength and mobility throughout the day, but may certainly return to room for meal. TUG test completed in 33 seconds with poor quality of safety for stand to sit at end of ambulation distance. Physical Therapy Goals 1: Pt to complete bed mobility with Tyra and HOB flat with no use of bed rails. 2: Pt to complete transfers with SBA from a variety of surfaces with appropriate AD. 3: Pt to ambulate 200' with SBA and appropriate AD. 4: Pt to asc/desc 4 stairs with railing and CGA to simulate stair negotiation at [facility] in case of fire evacuation. 5: Pt to demonstrate appropriate, safe O2 tubing management with ambulation and SBA. 6: Pt to demonstrate increased gait speed to > 0.38 m/sec to indicate an improvement in function. Patient's Goals
--- NOTE | 2018-12-10 16:36 | Medical Nutrition Therapy ---
Nutrition Anthropometrics Height (Inches): 67.00 Height (Calculated Centimeters: 170.783191 Weight (Pounds): 115 (Pt weighed 154 using the bedscale on 11/29. After examinating the patient and pt denied 115lb weight nurses were asked to weight pt again) Weight (Calculated Kilograms): 52.532 BMI: 18.01 (Weigh is going to be redone, but pt looks to be a healthy BMI) Arnoldo Nutrition Score: Adequate Arnoldo Nutrition Risk Score: 17 Dietary Referral Nutrition Risk Factors: Special Diet Nutrition Risk Comment: Physical Findings Physical Appearance: Pt is going to be weighed again to verify her weight Skin Appearance Skin Appearance: Edema Edema Location Modifier: Edema Location: Type of Edema: chronic Degree of Edema: Gastrointestinal Symptoms GI Symtoms: GI bleeding Tube Present: Bowel Sounds: Recent Bowel Pattern: Stool Characteristics: Nutrition/Food History Good Skipped Meals: No Breakfast: 100% Lunch: 75% Dinner: 100% Snacks: Refused Nutritional Diagnosis Nutritional Risk Acuity 1: Acute/ES Renal, Fail to Thrive Nutritional Risk Acuity 2: St III or IV Press Ulcer, Head/Neck/GI Cancer, Chronic Renal Failure Nutritional Risk Acuity 3: GERD, GI Bleed Nutritional Risk Acuity 4: Good Appetite Past Medical History: CAD, HTN, T2DM, CKD-3, non-Hodkins lymphoma, CHF, chronic edema, chronic UTI, hypercholesteremia, urinary incontinence, chronic renal disease, pulmonary nodule, GI bleed, anemia, ribs (multiple fractures), hypogammagloblinemia, lumbosacral spinal surgery, tonsillectomy, and cataract extraction and CABG. Nutritional Acuity: 1-High Nutrition Diagnosis: Inconsistent Carb. Intake Nutrition Etiology: Inability Manage SelfCare Nutrition Problem/Etiology/Sym: Inconsistent carb intake related to inability to manage selfcare as evidence by prolonged hospitalization, failure to thrive dx, and whole blood glucose ranging from 179-276 in 24 hours. Energy Requirement: 1660 (HB using 150lb, 1.3AF) Protein Requirement: 68 (1cal/kg) Fluid Requirement: 1660 (1660cal x 1mL/bethel) Diet Type: Diabetic Nutrition Intervention: Cont diet as ordered, Encourage intake Food Likes: Likes Chocolate Nutrition Monitoring & Eval Nutrition Goals: Eat 75-100% Meal RD Patient Assessment Time: [address] Assessment Type: RD Assessment Patient Nutrition Acuity: 1-High Follow Up Date: Dec 17, 2018 Nutritional Comment: 12/10 Pt admitted for needs of increasing her strength. Pt was diagnosed with weakness and failure to thrive. Pt also has T2DM, GERD, and a-fib. Pt has a hx of CABG x3, heart attack, pneumonia, UTI, and lymphoma. Pt is currently on the ADA diet and consuming 92% of meals. Pt weighed 154 using the bedscale on 11/29. After examinating the patient and pt denied 115lb weight, so nurses were asked to weight pt again on 12/10. Pt is having elevated whole blood glucose levels from 179-276, but is on insulin to help manage BG. Will continue to monitor pt for adequate intake. WYATT TOURE Dec 10, 2018 12:26
[2018-12-10 17:20] VITALS: BP 156/66
[2018-12-10] MEDS: MELATONIN 3 MG TAB PO SCH (20:31)
[2018-12-10] MEDS: NITROFURANTOIN MACROCRYSTALS 50 MG PO SCH (20:31)
[2018-12-11 08:00] VITALS: BP 135/65
[2018-12-11] MEDS: amLODIPine BESYL(*) 5 MG TAB PO SCH (08:53)
[2018-12-11] MEDS: CARVEDILOL 25 MG TABLET PO SCH ×2 (08:53→20:25)
[2018-12-11] MEDS: ATORVASTATIN 10 MG TAB PO SCH (08:53)
[2018-12-11] MEDS: GABAPENTIN 300 MG CAP PO SCH ×2 (08:53→20:25)
[2018-12-11] MEDS: MULTIVITAMINS TAB PO SCH (08:53)
[2018-12-11] MEDS: RIVAROXABAN 10 MG TAB PO SCH (08:53)
[2018-12-11] MEDS: INSULIN HUM ISO(NPH) 100 UN/ML 3 ML VIAL SUBQ SCH ×2 (08:54→16:49)
[2018-12-11] MEDS: INSULIN HUM LISPRO 100 UN/ML 3 ML VIAL SUBQ PRN ×4 (08:55→20:24)
[2018-12-11] MEDS: DIGOXIN 0.125 MG TAB PO SCH (08:57)
[2018-12-11] MEDS: ACETAMINOPHEN 500 MG TAB PO PRN (08:58)
--- NOTE | 2018-12-11 13:18 | ECF History & Physical ---
Transfer Summary (ECF/SWB) Problems: (1) Urinary tract infection Status: Acute Assessment & Plan: Recurrent. She was started on IV Rocephin. Her urine culture from her last inpatient stay in October grew pansensitive E. coli. Current urine culture is negative. Rocephin was stopped after three doses. She was placed on Macrobid for preventative UTI treatment per Dr. Jara. (2) Bradycardia Status: Acute Assessment & Plan: Heart rate was in the 40s at times. Her digoxin level was high at 2.1. We held the digoxin and carvedilol initially. Her HR is now into 70-80 range. We have restarted the carvedilol and digoxin for now. Monitor. (3) Failure to thrive syndrome, adult Status: Chronic Assessment & Plan: The patient has had recurrent admissions for failure to thrive. Speech Language Pathology evaluated patient, patient exhibits mild cognitive defect. At present, her short term memory is poor. Will have social media community manager see for disposition planning. Recommended HIREN/ SNF. (4) Dizziness Status: Acute Assessment & Plan: Improved with hydration (and getting her glasses). PT has evaluated also as she has had frequent falls at home. CT scan was negative. (5) Acute renal failure Status: Acute Assessment & Plan: Likely due to dehydration. Will hold/stop her Lasix. Her creatinine is 1.2 and was 1.2 at discharge on 10/26/18. Will continue to monitor. (6) Pressure ulcer Status: Acute Assessment & Plan: Will have PT wound care evaluate/treat as needed, Try to keep pressure off the area. (7) Anemia Status: Chronic Assessment & Plan: Chronic. Monitor. (8) Hematuria Status: Chronic Assessment & Plan: The patient has had ongoing hematuria, but has also had recurrent infections. A recent CT showed thickening of the bladder wall. She sees Dr. Jara and was to follow up with him after her last discharge, but has not yet done so. He has recommended cystoscopy/restart Macrobid prophylaxis. (9) Recurrent falls Status: Chronic Assessment & Plan: The patient admits to falling frequently. She was seen in the ER on November 23 after a fall. PT to see and evaluate. (10) CHRONIC ATRIAL FIBRILLATION Status: Chronic Assessment & Plan: Will now resume her Xarelto 15mg daily (initially held due to hematuria). Carvedilol and Digoxin restarted. Monitor on telemetry. (11) CKD (chronic kidney disease) stage 3, GFR 30-59 ml/min Status: Chronic Assessment & Plan: Baseline creatinine is about 1.2. (12) HTN (hypertension) Status: Chronic Assessment & Plan: We have resumed amlodipine and carvedilol. Will further modify if needed. (13) CAD (coronary artery disease) Status: Chronic Assessment & Plan: Continue atorvastatin and O2. Resume carvedilol. (14) Heart failure with reduced ejection fraction Status: Chronic Assessment & Plan: Lasix currently held/stopped due to recurrent dehydration/renal failure. Resume carvedilol (see above). (15) Bladder wall thickening Status: Chronic Assessment & Plan: She will need to follow up with Dr. Jara for further evaluation. (16) Type II diabetes mellitus Status: Chronic Assessment & Plan: Will continue to monitor glucoses AC/HS. Increase NPH 30u BID plus SSI. She is not sure what she has been taking at home to treat her type II DM. She had been on NPH insulin 40u BID and Lispro per SSI per her recent discharge summary. (17) Follicular non-Hodgkin's lymphoma Status: Chronic Assessment & Plan: [facility] by [facility]. She does have hypogammaglobulinemia as a result. She is not currently receiving treatment. Latest Vital Signs Vital Signs Date Time Temp Pulse Resp B/P (MAP) Pulse Ox O2 Delivery O2 Flow Rate FiO2 12/09/18 09:08 Nasal Cannula 12/09/18 08:38 83 12/09/18 07:13 98.3 16 164/72 (102) 2.0 12/09/18 03:39 92 Result Diagram: 12/08/18 0521 12/09/18 05 Condition: Improved Disposition: SNF/NH Treatment Goals and Plan Patient requires long-term and/or skilled rehabilitation with the goal to increase independence with ADL's, functional strength and mobility. Continue and adjust medication regimen. Problem Qualifiers (1) Urinary tract infection: Urinary tract infection type: acute cystitis Hematuria presence: with hematuria Qualified Codes: N30.01 - Acute cystitis with hematuria (2) Failure to thrive syndrome, adult: Failure to thrive age range: in adult Qualified Codes: R62.7 - Adult failure to thrive (3) HTN (hypertension): Hypertension type: essential hypertension Qualified Codes: I10 - Essential (primary) hypertension MARIAJOSE RODARTE Dec 09, 2018 10:58 <Electronically signed by ASHLEY DAWKINS> D/ [id number] AMARI/RUSS CC: NIRMAL
[2018-12-11 16:45] VITALS: BP 144/65
--- NOTE | 2018-12-11 16:46 | NUR ---
Occupational Therapy Impression SBA ambulation x50ft, x100ft with RW. Incorporating various surfaces and thresholds with no loss of balance. SBA sit<>stands from various surfaces (soft couch/chair with no arms/chair with arms). V/c's for managing O2 tubing. Pt progressing well towards OT goals. Continue POC. Occupational Therapy Goals 1) Pt Amado Index of ADLs score will improve by two points. 2) Pt will be SBA light meal prep task. 3) Pt will be Independent UB HEP. 4) Pt will demonstrate improved standing tolerance for ADLs indicated by static/dynamic standing [id number] with no rest break. Patient's Goal
--- NOTE | 2018-12-11 17:00 | NUR ---
Physical Therapy Impression Attempted to see pt near lunch time, however, pt already had her meal. PT returned in afternoon, however, OT was seeing the pt at that time. When PT was able to return again, Pt already had her evening meal. Will make up this missed visit due to scheduling on Sunday this week. Physical Therapy Goals 1: Pt to complete bed mobility with Tyra and HOB flat with no use of bed rails. 2: Pt to complete transfers with SBA from a variety of surfaces with appropriate AD. 3: Pt to ambulate 200' with SBA and appropriate AD. 4: Pt to asc/desc 4 stairs with railing and CGA to simulate stair negotiation at [facility] in case of fire evacuation. 5: Pt to demonstrate appropriate, safe O2 tubing management with ambulation and SBA. 6: Pt to demonstrate increased gait speed to > 0.38 m/sec to indicate an improvement in function. Patient's Goals
[2018-12-11] MEDS: MELATONIN 3 MG TAB PO SCH (20:25)
[2018-12-11] MEDS: NITROFURANTOIN MACROCRYSTALS 50 MG PO SCH (20:25)
[2018-12-12 08:00] VITALS: BP 144/64
[2018-12-12] MEDS: RIVAROXABAN 10 MG TAB PO SCH (08:37)
[2018-12-12] MEDS: ATORVASTATIN 10 MG TAB PO SCH (08:38)
[2018-12-12] MEDS: DIGOXIN 0.125 MG TAB PO SCH (08:38)
[2018-12-12] MEDS: MULTIVITAMINS TAB PO SCH (08:38)
[2018-12-12] MEDS: GABAPENTIN 300 MG CAP PO SCH ×2 (08:38→20:27)
[2018-12-12] MEDS: CARVEDILOL 25 MG TABLET PO SCH ×2 (08:38→20:26)
[2018-12-12] MEDS: amLODIPine BESYL(*) 5 MG TAB PO SCH (08:38)
[2018-12-12] MEDS: INSULIN HUM ISO(NPH) 100 UN/ML 3 ML VIAL SUBQ SCH ×2 (08:39→16:34)
[2018-12-12] MEDS: INSULIN HUM LISPRO 100 UN/ML 3 ML VIAL SUBQ PRN ×4 (08:39→20:26)
--- NOTE | 2018-12-12 11:19 | NUR ---
Occupational Therapy Impression Pt. seen on 2 occasions this am(7;55- 8:05) and (9:00- 9:10).Pt. required Min A to perform supine to sit at EOB activity due to pt. leaning to the right. Pt. participated in UB strengthening exercises while seated in chair with 3# weight. Continue with POC. Occupational Therapy Goals 1) Pt Amado Index of ADLs score will improve by two points. 2) Pt will be SBA light meal prep task. 3) Pt will be Independent UB HEP. 4) Pt will demonstrate improved standing tolerance for ADLs indicated by static/dynamic standing [id number] with no rest break. Patient's Goal
[2018-12-12 17:05] VITALS: BP 145/64
[2018-12-12] MEDS: MELATONIN 3 MG TAB PO SCH (20:26)
[2018-12-12] MEDS: NITROFURANTOIN MACROCRYSTALS 50 MG PO SCH (20:27)
[2018-12-13 08:00] VITALS: BP 148/67
[2018-12-13] MEDS: amLODIPine BESYL(*) 5 MG TAB PO SCH (08:52)
[2018-12-13] MEDS: MULTIVITAMINS TAB PO SCH (08:52)
[2018-12-13] MEDS: GABAPENTIN 300 MG CAP PO SCH ×2 (08:52→20:43)
[2018-12-13] MEDS: ATORVASTATIN 10 MG TAB PO SCH (08:52)
[2018-12-13] MEDS: RIVAROXABAN 10 MG TAB PO SCH (08:52)
[2018-12-13] MEDS: ACETAMINOPHEN 500 MG TAB PO PRN ×2 (08:52→19:07)
[2018-12-13] MEDS: CARVEDILOL 25 MG TABLET PO SCH ×2 (08:52→20:43)
[2018-12-13] MEDS: DIGOXIN 0.125 MG TAB PO SCH (08:52)
[2018-12-13] MEDS: INSULIN HUM LISPRO 100 UN/ML 3 ML VIAL SUBQ PRN ×4 (08:53→20:43)
[2018-12-13] MEDS: INSULIN HUM ISO(NPH) 100 UN/ML 3 ML VIAL SUBQ SCH ×2 (08:53→16:54)
--- NOTE | 2018-12-13 14:00 | NUR ---
Occupational Therapy Impression Pt. participated in UB strengthening while reclined in bed with 3# weight, 1x 10 reps, 2sets. Continue with POC. Occupational Therapy Goals 1) Pt Amado Index of ADLs score will improve by two points. 2) Pt will be SBA light meal prep task. 3) Pt will be Independent UB HEP. 4) Pt will demonstrate improved standing tolerance for ADLs indicated by static/dynamic standing [id number] with no rest break. Patient's Goal
--- NOTE | 2018-12-13 14:30 | NUR ---
Physical Therapy Impression Patient transferred from supine to sit with SBA and min a sit to supine. Patient ambulated from room to end of cast and back ~224 feet with cuing for increased step length heel strike and push off. Patient needed 2 standing rest breaks. Physical Therapy Goals 1: Pt to complete bed mobility with Tyra and HOB flat with no use of bed rails. 2: Pt to complete transfers with SBA from a variety of surfaces with appropriate AD. 3: Pt to ambulate 200' with SBA and appropriate AD. 4: Pt to asc/desc 4 stairs with railing and CGA to simulate stair negotiation at [facility] in case of fire evacuation. 5: Pt to demonstrate appropriate, safe O2 tubing management with ambulation and SBA. 6: Pt to demonstrate increased gait speed to > 0.38 m/sec to indicate an improvement in function. Patient's Goals
--- NOTE | 2018-12-13 14:39 | NUR ---
Physical Therapy Impression Patient transferred from supine to sit with SBA and min a sit to supine. Patient ambulated from room to end of cast and back ~224 feet with cuing for increased step length heel strike and push off. Patient needed 2 standing rest breaks. Physical Therapy Goals 1: Pt to complete bed mobility with Tyra and HOB flat with no use of bed rails. 2: Pt to complete transfers with SBA from a variety of surfaces with appropriate AD. 3: Pt to ambulate 200' with SBA and appropriate AD. 4: Pt to asc/desc 4 stairs with railing and CGA to simulate stair negotiation at [facility] in case of fire evacuation. 5: Pt to demonstrate appropriate, safe O2 tubing management with ambulation and SBA. 6: Pt to demonstrate increased gait speed to > 0.38 m/sec to indicate an improvement in function. Patient's Goals
[2018-12-13 17:10] VITALS: BP 146/63
[2018-12-13] MEDS: NITROFURANTOIN MACROCRYSTALS 50 MG PO SCH (20:43)
[2018-12-13] MEDS: MELATONIN 3 MG TAB PO SCH (20:43)
[2018-12-14 08:00] VITALS: BP 143/75
[2018-12-14] MEDS: ACETAMINOPHEN 500 MG TAB PO PRN ×2 (08:27→20:34)
[2018-12-14] MEDS: GABAPENTIN 300 MG CAP PO SCH ×2 (08:27→20:41)
[2018-12-14] MEDS: MULTIVITAMINS TAB PO SCH (08:27)
[2018-12-14] MEDS: CARVEDILOL 25 MG TABLET PO SCH ×2 (08:27→20:34)
[2018-12-14] MEDS: RIVAROXABAN 10 MG TAB PO SCH (08:28)
[2018-12-14] MEDS: amLODIPine BESYL(*) 5 MG TAB PO SCH (08:28)
[2018-12-14] MEDS: ATORVASTATIN 10 MG TAB PO SCH (08:28)
[2018-12-14] MEDS: INSULIN HUM ISO(NPH) 100 UN/ML 3 ML VIAL SUBQ SCH ×2 (08:29→17:41)
[2018-12-14] MEDS: DIGOXIN 0.125 MG TAB PO SCH (08:34)
[2018-12-14] MEDS: INSULIN HUM LISPRO 100 UN/ML 3 ML VIAL SUBQ PRN ×3 (12:40→20:35)
[2018-12-14 15:25] VITALS: BP 154/66
[2018-12-14] MEDS: MELATONIN 3 MG TAB PO SCH (20:34)
[2018-12-14] MEDS: NITROFURANTOIN MACROCRYSTALS 50 MG PO SCH (20:34)
[2018-12-15 07:40] VITALS: BP 135/69
[2018-12-15] MEDS: ATORVASTATIN 10 MG TAB PO SCH (08:52)
[2018-12-15] MEDS: GABAPENTIN 300 MG CAP PO SCH ×2 (08:52→21:18)
[2018-12-15] MEDS: INSULIN HUM ISO(NPH) 100 UN/ML 3 ML VIAL SUBQ SCH ×2 (08:52→16:58)
[2018-12-15] MEDS: CARVEDILOL 25 MG TABLET PO SCH ×2 (08:53→21:18)
[2018-12-15] MEDS: DIGOXIN 0.125 MG TAB PO SCH (08:53)
[2018-12-15] MEDS: RIVAROXABAN 10 MG TAB PO SCH (08:54)
[2018-12-15] MEDS: amLODIPine BESYL(*) 5 MG TAB PO SCH (08:54)
[2018-12-15] MEDS: MULTIVITAMINS TAB PO SCH (08:54)
[2018-12-15] MEDS: INSULIN HUM LISPRO 100 UN/ML 3 ML VIAL SUBQ PRN ×3 (12:23→21:19)
[2018-12-15 15:20] VITALS: BP 128/55
[2018-12-15] MEDS: MELATONIN 3 MG TAB PO SCH (21:18)
[2018-12-15] MEDS: NITROFURANTOIN MACROCRYSTALS 50 MG PO SCH (21:18)
[2018-12-15] MEDS: ACETAMINOPHEN 500 MG TAB PO PRN (21:18)
[2018-12-16] MEDS: INSULIN HUM ISO(NPH) 100 UN/ML 3 ML VIAL SUBQ SCH ×2 (08:38→17:05)
[2018-12-16] MEDS: MULTIVITAMINS TAB PO SCH (08:40)
[2018-12-16] MEDS: ATORVASTATIN 10 MG TAB PO SCH (08:40)
[2018-12-16] MEDS: GABAPENTIN 300 MG CAP PO SCH ×2 (08:40→20:42)
[2018-12-16] MEDS: RIVAROXABAN 10 MG TAB PO SCH (08:40)
[2018-12-16] MEDS: DIGOXIN 0.125 MG TAB PO SCH (08:42)
[2018-12-16] MEDS: CARVEDILOL 25 MG TABLET PO SCH ×2 (08:42→20:42)
[2018-12-16] MEDS: amLODIPine BESYL(*) 5 MG TAB PO SCH (08:47)
[2018-12-16 08:48] VITALS: BP 148/74
--- NOTE | 2018-12-16 11:43 | NUR ---
Physical Therapy Impression Pt tolerated greater distance ambulation with FWW and PT assist with O2 tubing management. When PT asked pt what her goals are for progression and discharge plan, pt states "To just go home and ". Pt seems fairly despondent at times, but then is more upbeat towards end of session and is pleased with her progress, discussing home healthcare options etc. Physical Therapy Goals 1: Pt to complete bed mobility with Tyra and HOB flat with no use of bed rails. 2: Pt to complete transfers with SBA from a variety of surfaces with appropriate AD. 3: Pt to ambulate 200' with SBA and appropriate AD. 4: Pt to asc/desc 4 stairs with railing and CGA to simulate stair negotiation at [facility] in case of fire evacuation. 5: Pt to demonstrate appropriate, safe O2 tubing management with ambulation and SBA. 6: Pt to demonstrate increased gait speed to > 0.38 m/sec to indicate an improvement in function. Patient's Goals
[2018-12-16] MEDS: INSULIN HUM LISPRO 100 UN/ML 3 ML VIAL SUBQ PRN ×3 (11:46→20:41)
--- NOTE | 2018-12-16 12:55 | Medical Nutrition Therapy ---
Nutritional Diagnosis Nutritional Risk Acuity 1: Acute/ES Renal, Fail to Thrive Nutritional Risk Acuity 2: St III or IV Press Ulcer, Head/Neck/GI Cancer, Chronic Renal Failure Nutritional Risk Acuity 3: GERD, GI Bleed Nutritional Risk Acuity 4: Good Appetite Past Medical History: CAD, HTN, T2DM, CKD-3, non-Hodkins lymphoma, CHF, chronic edema, chronic UTI, hypercholesteremia, urinary incontinence, chronic renal disease, pulmonary nodule, GI bleed, anemia, ribs (multiple fractures), hypogammagloblinemia, lumbosacral spinal surgery, tonsillectomy, and cataract extraction and CABG. Nutritional Acuity: 1-High Nutrition Diagnosis: Inconsistent Carb. Intake Nutrition Etiology: Inability Manage SelfCare Nutrition Problem/Etiology/Sym: Inconsistent carb intake related to inability to manage selfcare as evidence by prolonged hospitalization, failure to thrive dx, and whole blood glucose ranging from 179-276 in 24 hours. Energy Requirement: 1660 (HB using 150lb, 1.3AF) Protein Requirement: 68 (1cal/kg) Fluid Requirement: 1660 (1660cal x 1mL/bethel) Diet Type: Diabetic Nutrition Intervention: Cont diet as ordered, Encourage intake Food Likes: Likes Chocolate Nutrition Monitoring & Eval Nutrition Goals: Eat 75-100% Meal Nutrition Follow-Up: Good Intake RD Patient Assessment Time: [address] Assessment Type: RD Re-Assessment Patient Nutrition Acuity: 1-High Follow Up Date: December 24, 2018 Nutritional Comment: 12/10 Pt admitted for needs of increasing her strength. Pt was diagnosed with weakness and failure to thrive. Pt also has T2DM, GERD, and a-fib. Pt has a hx of CABG x3, heart attack, pneumonia, UTI, and lymphoma. Pt is currently on the ADA diet and consuming 92% of meals. Pt weighed 154 using the bedscale on 11/29. After examinating the patient and pt denied 115lb weight, so nurses were asked to weight pt again on 12/10. Pt is having elevated whole blood glucose levels from 179-276, but is on insulin to help manage BG. Will continue to monitor pt for adequate intake. CD 12/16 Pt cont on diabetic diet. Intake average 88%. BG cont elevated up to 313. Pt cont on insuli. No new wt obtained. Will cont to monitor and encourage intake. RAS LUJAN Dec 16, 2018 12:55
[2018-12-16] MEDS: ACETAMINOPHEN 500 MG TAB PO PRN ×2 (13:11→20:42)
[2018-12-16 15:50] VITALS: BP 152/62
--- NOTE | 2018-12-16 15:58 | NUR ---
Occupational Therapy Impression Pt. participated in UB strengthening exercises while reclined in bed with 3# weight, 1 x10 reps. Continue with POC. Occupational Therapy Goals 1) Pt Amado Index of ADLs score will improve by two points. 2) Pt will be SBA light meal prep task. 3) Pt will be Independent UB HEP. 4) Pt will demonstrate improved standing tolerance for ADLs indicated by static/dynamic standing [id number] with no rest break. Patient's Goal
[2018-12-16] MEDS: NITROFURANTOIN MACROCRYSTALS 50 MG PO SCH (20:42)
[2018-12-16] MEDS: MELATONIN 3 MG TAB PO SCH (20:42)
[2018-12-17 08:00] VITALS: BP 161/63
[2018-12-17] MEDS: CARVEDILOL 25 MG TABLET PO SCH ×2 (08:33→20:48)
[2018-12-17] MEDS: INSULIN HUM ISO(NPH) 100 UN/ML 3 ML VIAL SUBQ SCH ×2 (08:33→17:40)
[2018-12-17] MEDS: DIGOXIN 0.125 MG TAB PO SCH (08:33)
[2018-12-17] MEDS: RIVAROXABAN 10 MG TAB PO SCH (08:34)
[2018-12-17] MEDS: MULTIVITAMINS TAB PO SCH (08:34)
[2018-12-17] MEDS: amLODIPine BESYL(*) 5 MG TAB PO SCH (08:34)
[2018-12-17] MEDS: ATORVASTATIN 10 MG TAB PO SCH (08:34)
[2018-12-17] MEDS: GABAPENTIN 300 MG CAP PO SCH ×2 (08:34→20:48)
--- NOTE | 2018-12-17 11:30 | NUR ---
Occupational Therapy Impression SBA ambulation [id number] with RW. Independent sit<>stand from chair with arms and chair without. Independent managing O2 tubing. Independent LB dressing. Independent toileting. SBA simulated light meal prep task reaching high/low with good dynamic balance and tolerance for activity. Pt has met skilled OT goals. Pt recognizes home in not a safe option and is agreeable to recommendation for 24/7 care. Care conference this afternoon to discuss discharge plans. Plan for final OT visits to assess carryover of skills and discharge plan. Occupational Therapy Goals 1) Pt Amado Index of ADLs score will improve by two points. 2) Pt will be SBA light meal prep task. 3) Pt will be Independent UB HEP. 4) Pt will demonstrate improved standing tolerance for ADLs indicated by static/dynamic standing [id number] with no rest break. Patient's Goal
[2018-12-17] MEDS: INSULIN HUM LISPRO 100 UN/ML 3 ML VIAL SUBQ PRN ×3 (11:54→20:51)
--- NOTE | 2018-12-17 12:25 | NUR ---
Physical Therapy Impression Pt tolerated ambulation to/from rehab dept with TUG test as well, which she completed in 26 seconds. After seated rest break and use of NuStep in rehab dept, pt ambulated back to room but was noticeably more fatigued with cues required to maintain FWW closer to body for improved safety. Physical Therapy Goals 1: Pt to complete bed mobility with Tyra and HOB flat with no use of bed rails. 2: Pt to complete transfers with SBA from a variety of surfaces with appropriate AD. 3: Pt to ambulate 200' with SBA and appropriate AD. 4: Pt to asc/desc 4 stairs with railing and CGA to simulate stair negotiation at [facility] in case of fire evacuation. 5: Pt to demonstrate appropriate, safe O2 tubing management with ambulation and SBA. 6: Pt to demonstrate increased gait speed to > 0.38 m/sec to indicate an improvement in function. Patient's Goals
[2018-12-17 16:25] VITALS: BP 175/74
[2018-12-17] MEDS: MELATONIN 3 MG TAB PO SCH (20:48)
[2018-12-17] MEDS: ACETAMINOPHEN 500 MG TAB PO PRN (20:48)
[2018-12-17] MEDS: NITROFURANTOIN MACROCRYSTALS 50 MG PO SCH (20:48)
[2018-12-18] MEDS: GABAPENTIN 300 MG CAP PO SCH ×2 (08:49→21:19)
[2018-12-18] MEDS: CARVEDILOL 25 MG TABLET PO SCH ×2 (08:49→21:20)
[2018-12-18] MEDS: DIGOXIN 0.125 MG TAB PO SCH (08:49)
[2018-12-18] MEDS: amLODIPine BESYL(*) 5 MG TAB PO SCH (08:49)
[2018-12-18] MEDS: MULTIVITAMINS TAB PO SCH (08:49)
[2018-12-18] MEDS: RIVAROXABAN 10 MG TAB PO SCH (08:49)
[2018-12-18] MEDS: ATORVASTATIN 10 MG TAB PO SCH (08:49)
[2018-12-18 08:50] VITALS: BP 131/68
[2018-12-18] MEDS: INSULIN HUM ISO(NPH) 100 UN/ML 3 ML VIAL SUBQ SCH ×2 (08:51→17:07)
--- NOTE | 2018-12-18 11:43 | NUR ---
Occupational Therapy Impression SBA ambulation 2x90ft with RW. Occasional v/c's for safety with O2 tubing. No carryover for (I) with O2 tubing.Independent toileting. SBA bathing seated. Set-up UB/LB dressing. Pt nearing OT goals. Plan for final visits to address UB HEP for continued strengthening and any additional needs pending discharge setting. Occupational Therapy Goals 1) Pt Amado Index of ADLs score will improve by two points. 2) Pt will be SBA light meal prep task. 3) Pt will be Independent UB HEP. 4) Pt will demonstrate improved standing tolerance for ADLs indicated by static/dynamic standing [id number] with no rest break. Patient's Goal
[2018-12-18] MEDS: ACETAMINOPHEN 500 MG TAB PO PRN ×2 (12:02→21:19)
[2018-12-18] MEDS: INSULIN HUM LISPRO 100 UN/ML 3 ML VIAL SUBQ PRN ×3 (12:03→21:19)
--- NOTE | 2018-12-18 14:45 | Hospitalist Progress Note ---
Subjective Progress Notes Subjective She has been working with physical therapy. She has no complaints. She had no acute events over the last week. Patient Complains of: Cardiovascular: No: Chest Pain Respiratory: No: Shortness of Breath Physical Exam Vital Signs Date Time Temp Pulse Resp B/P (MAP) Pulse Ox O2 Delivery O2 Flow Rate FiO2 12/18/18 08:50 93 Nasal Cannula 2.0 12/18/18 08:50 97.4 18 131/68 (89) 12/18/18 08:49 73 Intake and Output 12/18/18 07:00 Intake Total 790 ml Balance 790 ml Intake Oral 790 ml # Voids 7 # Bowel Movements 1 General Appearance: Alert, Awake, No Acute Distress, Afebrile Neuro: No Gross deficits Cardiovascular: Regular Rate and Rhythm Respiratory: No Respiratory Distress, Clear to Auscultation GI: Soft and Non-Tender Extremities: Warm, Perfused; No Edema Psych: Alert & Oriented X3, Appropriate Mood & Affect Assessment and Plan Problems: (1) Failure to thrive syndrome, adult Status: Chronic Assessment & Plan: The patient has had recurrent admissions for failure to thrive. Speech Language Pathology evaluated patient, patient exhibits mild cogn itive defect. At present, her short term memory is poor. Will have social sciences lecturer see for disposition planning. Recommended HIREN/ SNF. (2) UTI (lower urinary tract infection) Status: Chronic Assessment & Plan: Recurrent. She was started on IV Rocephin. Her urine culture from her last inpatient stay in October grew pansensitive E. coli. Current urine culture is negative. Rocephin was stopped after three doses. She was placed on Macrobid for preventative UTI treatment per Dr. Jara. (3) Bradycardia Status: Acute Assessment & Plan: Resolved. Heart rate was in the 40s at times. Her digoxin level was high at 2.1. We held the digoxin and carvedilol initially. Her HR is now into 70-80 range. We have restarted the carvedilol and digoxin for now. Will recheck digoxin level. (4) Dizziness Status: Acute Assessment & Plan: Improved with hydration (and getting her glasses). PT has evaluated also as she has had frequent falls at home. CT scan was negative. (5) Pressure ulcer Status: Acute Assessment & Plan: Will have PT wound care evaluate/treat as needed, Try to keep pressure off the area. (6) Anemia Status: Chronic Assessment & Plan: Chronic. Monitor. Will check labs. (7) Recurrent falls Status: Chronic Assessment & Plan: The patient admits to falling frequently. She was seen in the ER on November 23 after a fall. PT evaluating patient. (8) CHRONIC ATRIAL FIBRILLATION Status: Chronic Assessment & Plan: Continue chronic Xarelto 15mg daily, Carvedilol and Digoxin. (9) CKD (chronic kidney disease) stage 3, GFR 30-59 ml/min Status: Chronic Assessment & Plan: Baseline creatinine is about 1.2. (10) HTN (hypertension) Status: Chronic Assessment & Plan: Continue chronic amlodipine and carvedilol. (11) CAD (coronary artery disease) Status: Chronic Assessment & Plan: Continue atorvastatin and O2. (12) Heart failure with reduced ejection fraction Status: Chronic Assessment & Plan: Lasix currently held/stopped due to recurrent dehydration/renal failure. (13) Bladder wall thickening Status: Chronic Assessment & Plan: She will need to follow up with Dr. Jara for further evaluation. (14) Type II diabetes mellitus Status: Chronic Assessment & Plan: Will continue to monitor glucoses AC/HS. Increase NPH 30u BID plus SSI. She is not sure what she has been taking at home to treat her type II DM. She had been on NPH insulin 40u BID and Lispro per SSI per her recent discharge summary. Will increase SSI to #3. (15) Follicular non-Hodgkin's lymphoma Status: Chronic Assessment & Plan: [facility] She does have hypogammaglobulinemia as a result. She is not currently receiving treatment. Problem Qualifiers (1) HTN (hypertension): Hypertension type: essential hypertension Qualified Codes: I10 - Essential (primary) hypertension MARIAJOSE RODARTE RESIDENTIAL CARE FACILITY MANAGER December 18, 2018 14:45
[2018-12-18 15:32] LABS: PLATELET COUNT, AUTOMATED 349 K/uL (150-450)
--- NOTE | 2018-12-18 16:58 | NUR ---
Physical Therapy Impression Pt amb to rehab dept and tolerated 12 minutes on NuStep with VS in safe range on 2 L/min supplemental O2. Physical Therapy Goals 1: Pt to complete bed mobility with Tyra and HOB flat with no use of bed rails. 2: Pt to complete transfers with SBA from a variety of surfaces with appropriate AD. 3: Pt to ambulate 200' with SBA and appropriate AD. 4: Pt to asc/desc 4 stairs with railing and CGA to simulate stair negotiation at [facility] in case of fire evacuation. 5: Pt to demonstrate appropriate, safe O2 tubing management with ambulation and SBA. 6: Pt to demonstrate increased gait speed to > 0.38 m/sec to indicate an improvement in function. Patient's Goals
[2018-12-18 17:30] VITALS: BP 151/70
[2018-12-18] MEDS: NITROFURANTOIN MACROCRYSTALS 50 MG PO SCH (21:20)
[2018-12-18] MEDS: MELATONIN 3 MG TAB PO SCH (21:20)
[2018-12-19 08:00] VITALS: BP 150/68
[2018-12-19] MEDS: ATORVASTATIN 10 MG TAB PO SCH (08:31)
[2018-12-19] MEDS: CARVEDILOL 25 MG TABLET PO SCH ×2 (08:31→20:36)
[2018-12-19] MEDS: amLODIPine BESYL(*) 5 MG TAB PO SCH (08:31)
[2018-12-19] MEDS: GABAPENTIN 300 MG CAP PO SCH ×2 (08:31→20:36)
[2018-12-19] MEDS: RIVAROXABAN 10 MG TAB PO SCH (08:31)
[2018-12-19] MEDS: MULTIVITAMINS TAB PO SCH (08:32)
[2018-12-19] MEDS: DIGOXIN 0.125 MG TAB PO SCH (08:32)
[2018-12-19] MEDS: INSULIN HUM ISO(NPH) 100 UN/ML 3 ML VIAL SUBQ SCH ×2 (08:32→16:47)
[2018-12-19] MEDS: ACETAMINOPHEN 500 MG TAB PO PRN ×2 (08:35→20:40)
--- NOTE | 2018-12-19 12:13 | NUR ---
Physical Therapy Impression Pt declining many offers for therapy session this date including stair trial to simulate curb in community, NuStep, working on getting off couch in [facility] living room etc. Pt agreed to ambulate for short bout. Also declined sitting at dining table for lunch. Pt plans to D/C home with services when medically appropriate. Physical Therapy Goals 1: Pt to complete bed mobility with Tyra and HOB flat with no use of bed rails. 2: Pt to complete transfers with SBA from a variety of surfaces with appropriate AD. 3: Pt to ambulate 200' with SBA and appropriate AD. 4: Pt to asc/desc 4 stairs with railing and CGA to simulate stair negotiation at [facility] in case of fire evacuation. 5: Pt to demonstrate appropriate, safe O2 tubing management with ambulation and SBA. 6: Pt to demonstrate increased gait speed to > 0.38 m/sec to indicate an improvement in function. Patient's Goals
[2018-12-19] MEDS: INSULIN HUM LISPRO 100 UN/ML 3 ML VIAL SUBQ PRN ×3 (12:34→20:36)
--- NOTE | 2018-12-19 14:47 | OT ECF NOTE ---
Type of Note: Discharge Note Primary Medical Diagnosis: Weakness. Failure to thrive. Occupational Therapy Evaluation Date: 12/09/18 SUBJECTIVE: Prior Hospitalization: [facility] 11/29/18-12/09/18 Prior Level of Function: Assist for IADLs and occasional ADLs Prior Living Status: Alone Community Services: [facility] Home health care Meals on Wheels Home Accessibility: Discussion deferred Equipment Owned: Front wheeled walker Medical Complications/Past Medical History: Please refer to EMR Psychosocial Support: Daughter in [place]. Two sons that reside outside of [place]. Pain Scale (0-10): None reported at time of evaluation OBJECTIVE: Strength: MMT: Right Left Shoulder Flexion WFL WFL Elbow Flexion WFL WFL Wrist Extension WFL WFL Welding Machine Feeder WFL WFL (5= normal, 4= good, 3= fair, 2= poor, 1= trace) ROM: Both upper extremities, WFL Sensation: No paraesthesia reported Functional Transfer: Assistive Device: Front wheeled walker Transfer Ability: Modified Independent ADL: Upper body dressing: Assistive device: None Upper body dressing ability: Independent Lower body dressing: Assistive device: None Lower body dressing ability: Independent Toileting: Assistive device: Grab bars Toileting ability: Independent Grooming/hygiene: Seated Assistive device: None Grooming ability: Independent Bathing: Assistive device: Shower chair Bathing ability: Modified Independent Standardized Assessment: Amado Index of Activities of Daily Livin20 upon initial evaluation (12/09/18). 19/20 upon discharge (01/08/19). ASSESSMENT: Elena presented to [facility] requiring supervision for ADLs and assist for IADLs. She has met all skilled OT goals. Initially, it was recommended that pt receive 24/7 assist due to being unsuccessful at home. However, pt reports desire to discharge home at current level of function. Reports no questions/concerns but reports recognition of allowing for additional assist in the home to promote increased success. Pt has met skilled OT goals. Plan for discharge from OT services. Problem List/Current Limitations: Decreased activity tolerance Poor safety awareness Lack of motivation Short Term Goals: 1) Pt Amado Index of ADLs score will improve by two points. GOAL MET 2) Pt will be SBA light meal prep task. GOAL MET 3) Pt will be Independent UB HEP. GOAL MET 4) Pt will demonstrate improved standing tolerance for ADLs indicated by static/dynamic standing [id number] with no rest break.GOAL MET Barriers to Discharge: Compliance with medication and self-cares in home environment PLAN: Patient reports desire to discharge home at current level of function. Reports no questions/concerns but reports recognition of allowing for additional assist in the home to promote increased success. Pt has met skilled OT goals. Plan for discharge from OT services. Thank you for this referral. If you have any questions, concerns, or comments about this report or plan, please contact me at . Oma Solano MS, OTR/L Occupational Therapist NIRMAL
[2018-12-19 17:15] VITALS: BP 171/61
[2018-12-19] MEDS: MELATONIN 3 MG TAB PO SCH (20:36)
[2018-12-19] MEDS: NITROFURANTOIN MACROCRYSTALS 50 MG PO SCH (20:36)
[2018-12-20 08:00] VITALS: BP 183/67
[2018-12-20] MEDS: GABAPENTIN 300 MG CAP PO SCH ×2 (08:39→20:55)
[2018-12-20] MEDS: MULTIVITAMINS TAB PO SCH (08:39)
[2018-12-20] MEDS: ATORVASTATIN 10 MG TAB PO SCH (08:39)
[2018-12-20] MEDS: amLODIPine BESYL(*) 5 MG TAB PO SCH (08:39)
[2018-12-20] MEDS: CARVEDILOL 25 MG TABLET PO SCH ×2 (08:39→20:55)
[2018-12-20] MEDS: DIGOXIN 0.125 MG TAB PO SCH (08:39)
[2018-12-20] MEDS: RIVAROXABAN 10 MG TAB PO SCH (08:39)
[2018-12-20] MEDS: ACETAMINOPHEN 500 MG TAB PO PRN ×2 (08:40→20:55)
[2018-12-20] MEDS: INSULIN HUM ISO(NPH) 100 UN/ML 3 ML VIAL SUBQ SCH ×2 (08:40→16:36)
[2018-12-20] MEDS: INSULIN HUM LISPRO 100 UN/ML 3 ML VIAL SUBQ PRN ×4 (08:41→20:55)
--- NOTE | 2018-12-20 14:19 | NUR ---
Physical Therapy Impression Pt reports plans to DC home, thus, 4 stair goal no longer appropriate. Pt is able to transfer and ambulate at Mod I level and demonstrated safe manipulation of O2 tubing. Physical Therapy Goals 1: Pt to complete bed mobility with Tyra and HOB flat with no use of bed rails. 2: Pt to complete transfers with SBA from a variety of surfaces with appropriate AD. 3: Pt to ambulate 200' with SBA and appropriate AD. 4: Pt to asc/desc 4 stairs with railing and CGA to simulate stair negotiation at [facility] in case of fire evacuation. 5: Pt to demonstrate appropriate, safe O2 tubing management with ambulation and SBA. 6: Pt to demonstrate increased gait speed to > 0.38 m/sec to indicate an improvement in function. Patient's Goals
[2018-12-20 15:20] VITALS: BP 149/64
[2018-12-20] MEDS: MELATONIN 3 MG TAB PO SCH (20:55)
[2018-12-20] MEDS: NITROFURANTOIN MACROCRYSTALS 50 MG PO SCH (20:55)
[2018-12-21 07:19] VITALS: BP 154/81
[2018-12-21] MEDS: INSULIN HUM LISPRO 100 UN/ML 3 ML VIAL SUBQ PRN ×3 (08:20→20:58)
[2018-12-21] MEDS: INSULIN HUM ISO(NPH) 100 UN/ML 3 ML VIAL SUBQ SCH ×2 (08:21→17:36)
[2018-12-21] MEDS: CARVEDILOL 25 MG TABLET PO SCH ×2 (09:21→20:58)
[2018-12-21] MEDS: amLODIPine BESYL(*) 5 MG TAB PO SCH (09:21)
[2018-12-21] MEDS: ATORVASTATIN 10 MG TAB PO SCH (09:22)
[2018-12-21] MEDS: GABAPENTIN 300 MG CAP PO SCH ×2 (09:22→20:58)
[2018-12-21] MEDS: DIGOXIN 0.125 MG TAB PO SCH (09:22)
[2018-12-21] MEDS: RIVAROXABAN 10 MG TAB PO SCH (09:22)
[2018-12-21] MEDS: MULTIVITAMINS TAB PO SCH (09:23)
[2018-12-21] MEDS: ACETAMINOPHEN 500 MG TAB PO PRN ×2 (09:31→20:58)
[2018-12-21 15:40] VITALS: BP 158/75
[2018-12-21] MEDS: NITROFURANTOIN MACROCRYSTALS 50 MG PO SCH (20:58)
[2018-12-21] MEDS: MELATONIN 3 MG TAB PO SCH (20:58)
[2018-12-22] MEDS: GABAPENTIN 300 MG CAP PO SCH ×2 (08:43→21:05)
[2018-12-22] MEDS: CARVEDILOL 25 MG TABLET PO SCH ×2 (08:43→21:05)
[2018-12-22] MEDS: ATORVASTATIN 10 MG TAB PO SCH (08:44)
[2018-12-22] MEDS: MULTIVITAMINS TAB PO SCH (08:44)
[2018-12-22] MEDS: RIVAROXABAN 10 MG TAB PO SCH (08:44)
[2018-12-22] MEDS: DIGOXIN 0.125 MG TAB PO SCH (08:44)
[2018-12-22] MEDS: amLODIPine BESYL(*) 5 MG TAB PO SCH (08:44)
[2018-12-22] MEDS: INSULIN HUM ISO(NPH) 100 UN/ML 3 ML VIAL SUBQ SCH ×2 (08:45→16:55)
[2018-12-22 09:20] VITALS: BP 147/70
[2018-12-22] MEDS: INSULIN HUM LISPRO 100 UN/ML 3 ML VIAL SUBQ PRN ×3 (12:12→21:04)
[2018-12-22 16:50] VITALS: BP 123/73
[2018-12-22] MEDS: ACETAMINOPHEN 500 MG TAB PO PRN (21:05)
[2018-12-22] MEDS: NITROFURANTOIN MACROCRYSTALS 50 MG PO SCH (21:05)
[2018-12-22] MEDS: MELATONIN 3 MG TAB PO SCH (21:05)
[2018-12-22] MEDS ORDERED: NPH,100V2 SUBQ (21:38)
[2018-12-22] MEDS ORDERED: AMLO-127 PO (21:38)
--- NOTE | 2018-12-22 21:42 | Hospitalist Depart ---
Discharge Summary Reason for Hosp/Final Diag: (1) Failure to thrive syndrome, adult Status: Chronic Hospital Course & Plan: The patient has had recurrent admissions for failure to thrive. Speech Language Pathology evaluated patient, patient exhibits mild cognitive defect. At present, her short term memory is poor. human services professional did see for disposition planning. The patient will go home with [facility]. (2) UTI (lower urinary tract infection) Status: Chronic Hospital Course & Plan: The patient has recurrent UTIs. She was initially treat ed with IV Rocephin on admission to the medical floor. Her urine culture from her inpatient stay in October of this year grew pansensitive E. coli. Culture from this admission was negative. Rocephin was stopped after three doses. She was placed on Macrobid for preventative UTI treatment per Dr. Isbell. (3) Bradycardia Status: Acute Hospital Course & Plan: Resolved. Heart rate was in the 40s at times. Her digoxin level was high at 2.1, likely due to acute renal failure. We held the digoxin and carvedilol initially. Her HR improved into 70-80 range. Her carvedilol and digoxin were then restarted. (4) Dizziness Status: Acute Hospital Course & Plan: Improved with hydration (and getting her glasses). PT evaluated also as she has had frequent falls at home. CT scan of brain was negative. (5) Pressure ulcer Status: Acute Hospital Course & Plan: PT wound care evaluated and treated a pressure wound to her sacrum/coccyx. (6) Anemia Status: Chronic Hospital Course & Plan: Chronic. She will need ongoing monitoring as an outpatient. (7) Recurrent falls Status: Chronic Hospital Course & Plan: The patient admitted to falling frequently. She was evaluated and treated by PT. (8) CHRONIC ATRIAL FIBRILLATION Status: Chronic Hospital Course & Plan: She was continued on chronic Xarelto 15mg daily, Car vedilol and Digoxin as above. (9) CKD (chronic kidney disease) stage 3, GFR 30-59 ml/min Status: Chronic Hospital Course & Plan: Baseline creatinine is about 1.2. This has remained stable off of Lasix. (10) HTN (hypertension) Status: Chronic Hospital Course & Plan: Continued chronic amlodipine and carvedilol. Amlodipine was increased from 5mg to 10mg daily. (11) CAD (coronary artery disease) Status: Chronic Hospital Course & Plan: She was continued on atorvastatin, carvedilol and O2. (12) Heart failure with reduced ejection fraction Status: Chronic Hospital Course & Plan: Lasix was stopped due to recurrent dehydration and renal failure. (13) Bladder wall thickening Status: Chronic Hospital Course & Plan: She will need to follow up with Dr. Isbell for further evaluation as an outpatient. (14) Type II diabetes mellitus Status: Chronic Hospital Course & Plan: Glucoses were monitored AC/HS. She was placed on NPH 30u BID plus SSI while on ECF. She was unable to recall what she has been taking at home to treat her type II DM. She will need ongoing monitoring and adjustment of her medications as an outpatient. (15) Follicular non-Hodgkin's lymphoma Status: Chronic Hospital Course & Plan: [facility] She does have hypogammaglobulinemia as a result. She is not currently receiving treatment. Departure Weight (Pounds): 162 Weight (Ounces): 13.0 Result Diagram: 12/18/18 1512 12/18/18 1512 Condition: Improved PT/OT Follow Up For: PT For Strengthening, OT For ADL's Home Health RN Follow Up For: Nursing Assessment Discharge Code Status: DNR, DNI Time Spent: < 30 min Discharge Instructions Home Meds Active Scripts Insulin NPH Human Isophane (Humulin N) 100 Unit/Ml Vial, 30 UNIT SUBQ BIDBS, #1 VIAL Prov:YARELI THURMAN MD 12/22/18 Amlodipine Besylate (AMLODIPINE BESYLATE) 10 Mg Tablet, 1 TAB PO QDAY, #90 TAB Prov:YARELI THURMAN MD 12/22/18 Nitrofurantoin Monohyd/M-Cryst (NITROFURANTOIN MONO-MCR 100 MG) 100 Mg Capsule, 50 MG PO QHS for UTI prophylaxis, #30 CAPSULE 3 Refills Prov:MACHELLE ISBELL MD 11/19/18 Digoxin (Digox) 125 Mcg Tablet, 0.125 MG PO QDAY, #30 TAB Prov:MARIAJOES RODARTE [facility] 09/11/18 Carvedilol (CARVEDILOL) 25 Mg Tablet, 25 MG PO BID, #60 TAB Prov:MARIAJOSE RODARTE [facility] 09/11/18 Gabapentin (GABAPENTIN) 300 Mg Capsule, 300 MG PO BID, #60 CAPSULE Prov:MERARI RODARTEACE Wes [employer] 07/18/18 Reported Medications Vitamins A and D (Sween Cream) 85 Gm Cream..g., TOP QDAY PRN for ITCHING 09/09/18 Rivaroxaban 15 Mg (XARELTO 15 MG) 15 Mg Tablet, 15 MG PO QDAY, TAB 09/09/18 Acetaminophen (TYLENOL) 325 Mg Tablet, 650 MG PO Q6H PRN for PAIN, TAB 09/08/18 Melatonin (MELATONIN) 3 Mg Tablet, 3 MG PO HS 08/02/18 Atorvastatin Calcium (ATORVASTATIN CALCIUM) 20 Mg Tablet, 1 TAB PO QDAY, TAB 07/06/18 Oxygen (OXYGEN) Inha, 3 L INH, L 06/18/17 Cranberry Extract (CRANBERRY) 200 Mg Capsule, 200 MG PO BID, CAPSULE 11/11/14 Multivitamin (MULTI VITAMIN DAILY) 1 Each Tablet, 1 EACH PO QDAY 04/14/14 Discontinued Reported Medications Bupropion Hcl (BUPROPION HCL SR) 150 Mg Tablet.er, 150 MG PO BID 11/29/18 Glucosamine Sulfate 2KCL (GLUCOSAMINE) 1,000 Mg Tablet, 1000 MG PO BID 09/09/18 Potassium Chloride (POTASSIUM CHLORIDE) 10 Meq Capsule.er, 10 MEQ PO DAILY 09/08/18 Furosemide (LASIX) 40 Mg Tablet, 1 TAB PO DAILY, TAB 09/07/18 Lysine (LYSINE) 500 Mg Tablet, 500 MG PO BID 04/27/16 Nph, Human Insulin Isophane (HUMULIN N) 100 Unit/1 Ml Vial, 40 UNIT SQ BID 03/04/12 Discontinued Scripts Cephalexin 500 Mg Tab (KEFLEX 500 MG TAB) 500 Mg Tablet, 500 MG PO BID, #14 TAB Prov:LINDSEY NORRIS DO 11/21/18 Phenazopyridine Hcl (PHENAZOPYRIDINE HCL) 200 Mg Tablet, 200 MG PO Q8H PRN for DISCOMFORT, #9 TAB Prov:LINDSEY NORRIS V DO 11/21/18 Amlodipine Besylate (AMLODIPINE BESYLATE) 5 Mg Tablet, 5 MG PO QDAY, #30 TAB Prov:MARIAJOSE RODARTE Wes [facility] 11/05/18 Tamsulosin Hcl (FLOMAX) 0.4 Mg Cap.er.24h, 0.4 MG PO DAILY, #30 CAP Prov:MARIAJOSE RODARTE [facility] 11/05/18 Tramadol Hcl (TRAMADOL HCL) 50 Mg Tablet, 50 MG PO Q6H PRN for PAIN, #60 TAB Prov:MARIAJOSE RODARTE [employer] 07/18/18 Mirabegron (MYRBETRIQ) 50 Mg Tab.er.24h, 50 MG PO DAILY for overactive bladder for 30 Days, #30 CAP 3 Refills Prov:MACHELLE ISBELL MD 06/18/18 Follow up Referrals: Family Practice - In Two Weeks @ [facility] with AG MELENDEZ DO Diet: Diabetic Activity: As Tolerated, With Walker Special Instructions: Copies to: AG MELENDEZ DO ; Venous Thromboembolism Antithrombotics Is Pt On Any Antithrombotics?: Yes [id number] Certification Face to Face Home Health Certification Patient's Primary Care Provider: Ag Melendez DO Institutional Provider conducted the [id number] encounter. Electronic Undersigning Physician Certifies Home Health. I certify that the patient has been under my care and that I had a [id number] encounter that meets the physician [id number] encounter requirements with this patient. This patient is home-bound due to safety issues and continues to require assistance with ADL's. I certify that based on my findings, that Nursing, Aides and the following Home Health services are medically necessary: PT and OT Medical Necessity: Nursing, Rehab Date Face to Face Conducted: December 18, 2018 Problem Qualifiers (1) HTN (hypertension): Hypertension type: essential hypertension Qualified Codes: I10 - Essential (primary) hypertension YARELI THURMAN MD December 22, 2018 21:42
[2018-12-23 07:34] VITALS: BP 145/75
[2018-12-23] MEDS: amLODIPine BESYL(*) 5 MG TAB PO SCH (08:36)
[2018-12-23] MEDS: MULTIVITAMINS TAB PO SCH (08:36)
[2018-12-23] MEDS: ATORVASTATIN 10 MG TAB PO SCH (08:36)
[2018-12-23] MEDS: CARVEDILOL 25 MG TABLET PO SCH (08:36)
[2018-12-23] MEDS: GABAPENTIN 300 MG CAP PO SCH (08:36)
[2018-12-23] MEDS: DIGOXIN 0.125 MG TAB PO SCH (08:37)
[2018-12-23] MEDS: RIVAROXABAN 10 MG TAB PO SCH (08:38)
[2018-12-23] MEDS: INSULIN HUM ISO(NPH) 100 UN/ML 3 ML VIAL SUBQ SCH (08:38)
--- NOTE | 2018-12-23 09:20 | NUR ---
Spoke with resident about reported no food in her home and lack of phone service. Resident did admit that her daughter had emptied everything out of the apartment and cancelled services. Her friend who is picking her up today is going to go to the grocery store for her. She plans on contacting her [employer]/phone/internet company this morning to get services reinstated. She continues to feel confident about going home and states she knows she must stay active, eat right and drink fluids to stay healthy.
--- NOTE | 2018-12-23 09:24 | NUR ---
DUSTIN completed 5 days and discharge MDS. No changes to speak of. C: 15, D: 02, E: No concerns, Q: Yes referral made to outside referral agencies.
[2018-12-23] MEDS: INSULIN HUM LISPRO 100 UN/ML 3 ML VIAL SUBQ PRN (13:11)
[2018-12-23 16:01] VITALS: BP 155/61
--- NOTE | 2018-12-23 16:02 | PT ECF NOTE ---
Type of Note: Discharge Summary 12/20/2018 Primary Medical Diagnosis: Weakness. Failure to thrive. Physical Therapy Evaluation Date: 12/09/18 SUBJECTIVE: Prior Hospitalization: [facility] 11/29/18-12/09/18 Prior Level of Function: Pt was living alone but reports multiple falls at home. She has had multiple re-admissions (see EMR) and was admitted with a diagnosis of failure to thrive. 24 hr care has previously been recommended. Prior Living Status: Alone Community Services: [facility] Meals on Wheels Home Accessibility: Discussion deferred Equipment Owned: Front wheeled walker Medical Complications/Past Medical History: Please refer to EMR Psychosocial Support: Possibly strained relationship with daughter in town. Two sons that reside outside of [place]. Pain Scale (0-10): None reported at time of evaluation OBJECTIVE: Strength: Right Lower Extremity: DF: 4/5 Knee flexion: 3+/5 Knee extension:3+/5 Hip flexion:3/5 Left Lower Extremity: DF: 4/5 Knee flexion: 3+/5 Knee extension:3+/5 Hip flexion:3/5 ROM: WFL Sensation:No abnormalities noted Other Neuro findings: N/A Bed Mobility: Mod I Transfers: Mod I with RW Gait: Mod I x 500' with RW Stairs: 1 step Mod I with RW 10 meter walk test (0.6m/second cannot function independently): not re- evaluated ASSESSMENT: Pt has improved with independent with functional mobility and now wishes to DC home alone. Therapy staff continues to recommend 24 hour care. Goals addressed to return home which Pt reports 1 stair to enter. Problem List/Current Limitations: Decreased activity lo Decreased strength Decreased ROM Decreased balance Poor safety awareness Decreased problem solving Short Term Goals: 1: Pt to complete bed mobility with Tyra and HOB flat with no use of bed rails. GOAL MET 2: Pt to complete transfers with SBA from a variety of surfaces with appropriate AD. GOAL MET 3: Pt to ambulate 200' with SBA and appropriate AD. GOAL MET 4: Pt to asc/desc 4 stairs with railing and CGA to simulate stair negotiation at [facility] in case of fire evacuation. N/A, Pt discharging home. 5: Pt to demonstrate appropriate, safe O2 tubing management with ambulation and SBA. GOAL MET 6: Pt to demonstrate increased gait speed to > 0.38 m/sec to indicate an improvement in function. Not Addressed Senior Living Goals: Pt to d/c to facility with 24 hr care and increased safety with functional mobility Patient Goals: "Get around better, maybe walk without the walker" Rehabilitation Prognosis: Fair Barriers for Discharge: Pt may be near baseline level of functional mobility PLAN: DC home per Pt's wishes. Recommend 24 hour care. Thank you for this referral. If you have any questions, concerns, or comments about this report or plan, please contact me at . Nicolasa Ortega, PT, DPT, GCS MTDD
== END 2018-12-23 15:50 | disposition home health service (06) | DRG 948 ==
LOC: ECF 09:40
PROVIDERS: ADMIT Internal Medicine; ATTEND Internal Medicine
DX: R53.1 Weakness (principal); I50.22 Chronic systolic (congestive) heart failure; I13.0 Hypertensive heart and chronic kidney disease with heart failure and stage 1 through stage 4 chronic kidney disease, or unspecified chronic kidney disease; C82.90 Follicular lymphoma, unspecified, unspecified site; D80.1 Nonfamilial hypogammaglobulinemia; R62.7 Adult failure to thrive; R00.1 Bradycardia, unspecified; E11.22 Type 2 diabetes mellitus with diabetic chronic kidney disease; N18.3 Chronic kidney disease, stage 3 (moderate); D63.1 Anemia in chronic kidney disease; E86.0 Dehydration; R31.9 Hematuria, unspecified; I48.2 Chronic atrial fibrillation; I25.10 Atherosclerotic heart disease of native coronary artery without angina pectoris; T50.1X5A Adverse effect of loop [high-ceiling] diuretics, initial encounter; Z91.81 History of falling; Z95.1 Presence of aortocoronary bypass graft; Z79.4 Long term (current) use of insulin; Z79.01 Long term (current) use of anticoagulants; L89.159 Pressure ulcer of sacral region, unspecified stage
CPT/HCPCS: 36415; 36416; 80162; 82040; 82247; 82310; 82374; 82435; 82565; 82947; 82948; 84075; 84132; 84155; 84295; 84450; 84460; 84520; 85025; 97161; 97165

== ENCOUNTER 2019-01-27 15:37 | Inpatient (IN) | payer MEDICARE, OTHER ==
[~2019-01-27] VITALS: Ht 162.6 cm; Wt 74.4 kg
[~2019-01-27 15:37] MED LIST changes: -CEF300 PO; -DOXY-179 PO; -LACT PO; -NITR50CA39 PO
--- NOTE | 2019-01-27 16:02 | ER Report ---
History and Physical Time Seen By MD: 16:02 Hx. of Stated Complaint: Pt. slid of her chair and laid on the ground since midnight last night. Found by home health care RN and called EMS. Hypoxic on EMS arrival, 77% on 2L home O2, now up to 85% on 4L. Tachypenic, RR 26. BG per EMS was 65. Pt. eating an orange in triage. HPI/ROS CHIEF COMPLAINT: Fell out of chair last night HISTORY OF PRESENT ILLNESS: 73 year old female presents to ED via EMS after falling out of her chair last night at midnight and has been on the floor until approximately 1500 today. She states she was getting up to go to the bathroom from her chair when she said she slid right out of her chair unable to get up. States her phone was not charged, so she was unable to call anyone. Reports home health PT came to the house today and found her on the floor. Denies chest pain. Reports dyspnea. Denies pain. REVIEW OF SYSTEMS: Constitutional: No fever. HENT: No headache, no dizziness, no blurry vision. Respiratory: Reports dyspnea. No cough. Cardiovascular: Has palpitations, but this is chronic due to her hx of A-fib. No chest pain. Gastrointestinal: No vomiting, no abdominal pain. Genitourinary: Reports hx of incontinence. She was found on her floor at home with soaked pants and underwear. Reports hx of chronic UTI for 5 years. Musculoskeletal: No back pain. Allergies: Coded Allergies: ketorolac (Verified Allergy, Severe, COULD NOT SEE, N&V, THOUGHT SHE WAS GOING TO , 01/27/19) ibuprofen (Verified Adverse Reaction, Unknown, DIZZINESS, NAUSEA, VOMITING, 01/27/19) Home Meds Active Scripts Insulin NPH Human Isophane (Humulin N) 100 Unit/Ml Vial, 30 UNIT SUBQ BIDBS, #1 VIAL Prov:YARELI THURMAN MD 12/22/18 Amlodipine Besylate (AMLODIPINE BESYLATE) 10 Mg Tablet, 1 TAB PO QDAY, #90 TAB Prov:YARELI THURMAN MD 12/22/18 Nitrofurantoin Monohyd/M-Cryst (NITROFURANTOIN MONO-MCR 100 MG) 100 Mg Capsule, 50 MG PO QHS for UTI prophylaxis, #30 CAPSULE 3 Refills Prov:MACHELLE ISBELL MD 11/19/18 Digoxin (Digox) 125 Mcg Tablet, 0.125 MG PO QDAY, #30 TAB Prov:MARIAJOSE RODARTE [employer] 09/11/18 Carvedilol (CARVEDILOL) 25 Mg Tablet, 25 MG PO BID, #60 TAB Prov:MARIAJOSE RODARTE [employer] 09/11/18 Gabapentin (GABAPENTIN) 300 Mg Capsule, 300 MG PO BID, #60 CAPSULE Prov:MARIAJOSE RODARTE [employer] 07/18/18 Reported Medications Vitamins A and D (Sween Cream) 85 Gm Cream..g., TOP QDAY PRN for ITCHING 09/09/18 Rivaroxaban 15 Mg (XARELTO 15 MG) 15 Mg Tablet, 15 MG PO QDAY, TAB 09/09/18 Acetaminophen (TYLENOL) 325 Mg Tablet, 650 MG PO Q6H PRN for PAIN, TAB 09/08/18 Melatonin (MELATONIN) 3 Mg Tablet, 3 MG PO HS 08/02/18 Atorvastatin Calcium (ATORVASTATIN CALCIUM) 20 Mg Tablet, 1 TAB PO QDAY, TAB 07/06/18 Oxygen (OXYGEN) Inha, 3 L INH, L 06/18/17 Cranberry Extract (CRANBERRY) 200 Mg Capsule, 200 MG PO BID, CAPSULE 11/11/14 Multivitamin (MULTI VITAMIN DAILY) 1 Each Tablet, 1 EACH PO QDAY 04/14/14 Past Medical/Surgical History Past medical hx of migraines, IA, A-fib, systolic heart failure, HTN, hx of pneumonia in 2012, COPD, GERD, incontinence, bladder tumor, frequent UTI, right rib fracture 2017, back pain, diabetes, lymphoma. Past surgical hx lipoma removal from back, cataracts 2012, tonsillectomy, 3 back surgeries for ruptured disc, CABG x3 2012.. Reviewed Nurses Notes: Yes Hx Smoking: No Smoking Status: Never Smoker Exposure to Second Hand Smoke?: Yes Hx Substance Use Disorder: No Hx Alcohol Use: No Constitutional Vital Sign - Last 24 Hours 01/27/19 01/27/19 01/27/19 01/27/19 15:41 15:45 15:47 15:52 Temp 98.4 Pulse 109 112 106 Resp 26 B/P (MAP) 188/94 188/94 (125) Pulse Ox 88 87 89 O2 Delivery Nasal Cannula Nasal Cannula O2 Flow Rate 4 01/27/19 01/27/19 01/27/19 6/10/19 15:57 16:00 16:02 16:07 Pulse 100 111 106 Resp 29 33 32 B/P (MAP) 157/71 (99) Pulse Ox 88 89 90 01/27/19 01/27/19 01/27/19 01/27/19 16:12 16:17 16:22 16:27 Pulse 122 101 107 89 Resp 21 21 27 25 Pulse Ox 78 89 91 90 01/27/19 01/27/19 01/27/19 01/27/19 16:30 16:32 16:37 16:40 Pulse 105 87 103 Resp 26 16 B/P (MAP) 160/75 (103) Pulse Ox 93 01/27/19 01/27/19 01/27/19 01/27/19 16:40 16:42 16:47 16:52 Pulse 100 110 98 Resp 26 Pulse Ox 92 85 97 93 O2 Delivery Nasal Cannula O2 Flow Rate 4.0 01/27/19 01/27/19 01/27/19 01/27/19 16:57 17:00 17:02 17:07 Pulse 91 94 88 Resp 25 18 18 B/P (MAP) 150/79 (102) Pulse Ox 91 92 93 01/27/19 01/27/19 01/27/19 01/27/19 17:12 17:27 17:30 17:37 Pulse ??? 108 107 Resp 21 B/P (MAP) 165/120 (135) Pulse Ox 91 88 01/27/19 01/27/19 01/27/19 01/27/19 17:42 17:47 17:52 17:57 Pulse 107 90 95 86 Resp 19 25 Pulse Ox 90 90 88 89 01/27/19 01/27/19 01/27/19 01/27/19 18:00 18:02 18:07 18:12 Pulse 93 94 103 Resp 16 22 13 B/P (MAP) 165/94 (117) Pulse Ox 89 90 89 Physical Exam General Appearance: The patient is alert, has no immediate need for airway protection and no current signs of toxicity. Eyes: Pupils equal and round no injection. Respiratory: Lungs diminished throughout. Chest is non tender. Cardiac: Heart rate irregular- pt has hx of A-fib. Rate below 100. Gastrointestinal: Abdomen is soft and non tender, no masses, bowel sounds normal. Musculoskeletal: Neck: Neck is supple and non tender. Extremities have full range of motion and are non tender. Skin: No rashes or lesions. DIFFERENTIAL DIAGNOSIS: After history and physical exam differential diagnosis was considered for rhabdomyolysis, UTI, weakness, IA, pneumonia, stroke. Medical Decision Making Data Points Result Diagram: 01/27/19 1535 01/27/19 1633 Laboratory Hematology Test 01/27/19 00:00 01/27/19 15:35 01/27/19 16:33 01/27/19 17:33 B-Type Natriuretic Peptide 633 pg/ml (0-100) Red Blood Count 3.87 M/uL (4.17-5.56) Mean Corpuscular Volume 82.1 fL (80.0-96.0) Mean Corpuscular Hemoglobin 25.6 pg (26.0-33.0) Mean Corpuscular Hemoglobin Concent 31.2 g/dL (32.0-36.0) Red Cell Distribution Width 16.5 % (11.5-14.5) Mean Platelet Volume 9.9 fL (7.2-11.1) Neutrophils (%) (Auto) 77.9 % (39.4-72.5) Lymphocytes (%) (Auto) 12.5 % (17.6-49.6) Monocytes (%) (Auto) 8.2 % (4.1-12.4) Eosinophils (%) (Auto) 0.9 % (0.4-6.7) Basophils (%) (Auto) 0.5 % (0.3-1.4) Nucleated RBC Relative Count (auto) 0.1 /100WBC Neutrophils # (Auto) 9.7 K/uL (2.0-7.4) Lymphocytes # (Auto) 1.6 K/uL (1.3-3.6) Monocytes # (Auto) 1.0 K/uL (0.3-1.0) Eosinophils # (Auto) 0.1 K/uL (0.0-0.5) Basophils # (Auto) 0.1 K/uL (0.0-0.1) Nucleated RBC Absolute Count (auto) 0.01 K/uL Sodium Level 146 mmol/L (137-145) Potassium Level 4.7 mmol/L (3.5-5.0) Chloride Level 105 mmol/L (98-107) Carbon Dioxide Level 30 mmol/L (22-31) Blood Urea Nitrogen 20 mg/dl (7-18) Creatinine 1.40 mg/dl (0.52-1.04) Glomerular Filtration Rate Calc 36.8 Random Glucose 203 mg/dl (75-110) Lactate 0.8 mmol/L (0.7-2.1) Calcium Level 10.1 mg/dl (8.4-10.2) Total Bilirubin 0.7 mg/dl (0.2-1.3) Aspartate Amino Transf (AST/SGOT) 25 U/L (0-35) Alanine Aminotransferase (ALT/SGPT) 62 U/L (0-56) Alkaline Phosphatase 104 U/L (0-126) Total Creatine Kinase 79 U/L (30-135) Troponin I 0.017 ng/ml Total Protein 6.7 g/dl (6.3-8.2) Albumin 3.7 g/dl (3.5-5.0) Urine Color Yellow Urine Clarity Cloudy Urine pH 6.0 pH (4.8-9.5) Urine Specific [place] 1.017 Urine Protein 100 mg/dL (NEGATIVE) Urine Glucose (UA) 150 mg/dL (NEGATIVE) Urine Ketones Negative mg/dL (NEGATIVE) Urine Blood Small (NEGATIVE) Urine Nitrite Negative (NEGATIVE) Urine Bilirubin Negative (NEGATIVE) Urine Urobilinogen Negative mg/dL (0.2-1.9) Urine Leukocyte Esterase Large (NEGATIVE) Urine RBC 25 /HPF (0-2/HPF) Urine WBC 782 /HPF (0-5/HPF) Urine WBC Clumps Mod /HPF Urine Squamous Epithelial Cells Many /LPF (NONE-FEW) Urine Bacteria Few /HPF (NONE-FEW) Urine Mucus Few /HPF (NONE-FEW) Urine Yeast (Budding) Many /HPF Chemistry Test 01/27/19 00:00 01/27/19 15:35 01/27/19 16:33 01/27/19 17:33 B-Type Natriuretic Peptide 633 pg/ml (0-100) White Blood Count 12.5 k/uL (4.5-11.0) Red Blood Count 3.87 M/uL (4.17-5.56) Hemoglobin 9.9 g/dL (12.0-16.0) Hematocrit 31.7 % (34.0-47.0) Mean Corpuscular Volume 82.1 fL (80.0-96.0) Mean Corpuscular Hemoglobin 25.6 pg (26.0-33.0) Mean Corpuscular Hemoglobin Concent 31.2 g/dL (32.0-36.0) Red Cell Distribution Width 16.5 % (11.5-14.5) Platelet Count 215 K/uL (150-450) Mean Platelet Volume 9.9 fL (7.2-11.1) Neutrophils (%) (Auto) 77.9 % (39.4-72.5) Lymphocytes (%) (Auto) 12.5 % (17.6-49.6) Monocytes (%) (Auto) 8.2 % (4.1-12.4) Eosinophils (%) (Auto) 0.9 % (0.4-6.7) Basophils (%) (Auto) 0.5 % (0.3-1.4) Nucleated RBC Relative Count (auto) 0.1 /100WBC Neutrophils # (Auto) 9.7 K/uL (2.0-7.4) Lymphocytes # (Auto) 1.6 K/uL (1.3-3.6) Monocytes # (Auto) 1.0 K/uL (0.3-1.0) Eosinophils # (Auto) 0.1 K/uL (0.0-0.5) Basophils # (Auto) 0.1 K/uL (0.0-0.1) Nucleated RBC Absolute Count (auto) 0.01 K/uL Glomerular Filtration Rate Calc 36.8 Lactate 0.8 mmol/L (0.7-2.1) Calcium Level 10.1 mg/dl (8.4-10.2) Total Bilirubin 0.7 mg/dl (0.2-1.3) Aspartate Amino Transf (AST/SGOT) 25 U/L (0-35) Alanine Aminotransferase (ALT/SGPT) 62 U/L (0-56) Alkaline Phosphatase 104 U/L (0-126) Total Creatine Kinase 79 U/L (30-135) Troponin I 0.017 ng/ml Total Protein 6.7 g/dl (6.3-8.2) Albumin 3.7 g/dl (3.5-5.0) Urine Color Yellow Urine Clarity Cloudy Urine pH 6.0 pH (4.8-9.5) Urine Specific [place] 1.017 Urine Protein 100 mg/dL (NEGATIVE) Urine Glucose (UA) 150 mg/dL (NEGATIVE) Urine Ketones Negative mg/dL (NEGATIVE) Urine Blood Small (NEGATIVE) Urine Nitrite Negative (NEGATIVE) Urine Bilirubin Negative (NEGATIVE) Urine Urobilinogen Negative mg/dL (0.2-1.9) Urine Leukocyte Esterase Large (NEGATIVE) Urine RBC 25 /HPF (0-2/HPF) Urine WBC 782 /HPF (0-5/HPF) Urine WBC Clumps Mod /HPF Urine Squamous Epithelial Cells Many /LPF (NONE-FEW) Urine Bacteria Few /HPF (NONE-FEW) Urine Mucus Few /HPF (NONE-FEW) Urine Yeast (Budding) Many /HPF Urinalysis Test 01/27/19 17:33 Urine Color Yellow Urine Clarity Cloudy Urine pH 6.0 pH (4.8-9.5) Urine Specific [place] 1.017 Urine Protein 100 mg/dL (NEGATIVE) Urine Glucose (UA) 150 mg/dL (NEGATIVE) Urine Ketones Negative mg/dL (NEGATIVE) Urine Blood Small (NEGATIVE) Urine Nitrite Negative (NEGATIVE) Urine Bilirubin Negative (NEGATIVE) Urine Urobilinogen Negative mg/dL (0.2-1.9) Urine Leukocyte Esterase Large (NEGATIVE) Urine RBC 25 /HPF (0-2/HPF) Urine WBC 782 /HPF (0-5/HPF) Urine WBC Clumps Mod /HPF Urine Squamous Epithelial Cells Many /LPF (NONE-FEW) Urine Bacteria Few /HPF (NONE-FEW) Urine Mucus Few /HPF (NONE-FEW) Urine Yeast (Budding) Many /HPF EKG/Imaging EKG Interpretation 12 lead EKG: Rhythm: A-fib with ventricular rate of 93 [place]: normal QRS: normal ST segments: normal Monitor Interpretation: Atrial Fibrillation Imaging Location: [facility] [place] Patient: Elena Saunders : 1945 Visit/Account:[id number] Date of Sevice: 01/27/[address] scan without contrast COMPARISONS: CT of the head without contrast dated November 29, 2018 ADDITIONAL PERTINENT HISTORY: Fall TECHNIQUE: Multiple axial images were obtained from the skull base to the vertex without IV contrast. One of the following dose optimization techniques was utilized in the performance of this exam: Automated exposure control; adjustment of the mA and/or kV according to the patient's size; or use of an iterative reconstruction technique. Specific details can be referenced in the facility's radiology CT exam operational policy. FINDINGS: Midline shift: Negative Ventricles: Mild enlargement of the lateral and third ventricles stable from previous exam. Brain parenchyma: Patchy hypoattenuation within the periventricular and subcortical white matter, nonspecific but likely representing small vessel ischemic change on a chronic basis. No intraparenchymal hemorrhage. Extra-axial spaces: Moderate cerebral atrophy. Intracranial vasculature: Cavernous internal carotid artery calcifications. Otherwise negative Osseous structures: Negative Paranasal sinuses and mastoid air cells: Air-fluid level involving both maxillary sinuses. Otherwise negative Surrounding soft tissues and orbits: Negative IMPRESSION: 1. Age related changes as described above. 2. No evidence of acute intracranial pathology. CHEST SINGLE AP COMPARISONS: 2 view chest dated September 07, 2018 ADDITIONAL PERTINENT HISTORY: Fall FINDINGS: Cardiomediastinal silhouette: Patient status post median sternotomy. Otherwise negative Pulmonary vasculature: Atherosclerotic disease of the thoracic aortic arch. Lung delgado: Patchy areas of opacity involving the right lung base which could represent either a region of atelectatic change versus infiltrate. Likely atelectatic change at the left lung base. Pleural spaces: Small bilateral pleural effusions. Osseous structures: Negative. Surrounding soft tissues: Negative. IMPRESSION: 1. Continued presence of bilateral pleural effusions slightly decreased on the left from previous exam. 2. Patchy regions of atelectatic change versus infiltrate at the right lung base. 3. Continued mild atelectatic change at the left lung base. ED Course/Re-evaluation ED Course Upon arrival to the ED, patient admitted to an exam room, hx and physical obtained, differentials considered. Patient presents via EMS after falling out of her chair last night at midnight and has been on the floor until approximately 1500 today. She states she was getting up to go to the bathroom from her chair when she said she slid right out of her chair unable to get up. States her phone was not charged, so she was unable to call anyone. Reports home health PT came to the house today and found her on the floor. Denies chest pain. Denies musculoskelatal pain. Reports dyspnea. Reports incontinence and chronic UTI for approximately 5 years. On exam, heart irregular- has hx of A-fib. Lungs diminished throughout. IV started. CBC, CMP, troponin, CPK, lactate, BNP, UA, EKG, chest x-ray, head CT ordered. WBC elevated at 12.5 with slight left shift of 77.9%. Troponin negative, CPK normal at 79. BNP around patients normal at 633. UA with UTI- large leukocytes and [address] with no acute intracranial abnormality. Infiltrate noted at right lung base. With elevated WBC, dyspnea, and diminished lung sounds, patient likely has a pneumonia. Dr. Zhao consulted regarding admission who accepted her. Discussed plan with patient who agreed to be admitted. Decision to Disposition Date: Jan 27, 2019 Decision to Disposition Time: 18:00 Depart Departure Latest Vital Signs Vital Signs Date Time Temp Pulse Resp B/P (MAP) Pulse Ox O2 Delivery O2 Flow Rate FiO2 01/27/19 18:12 103 13 89 01/27/19 18:00 165/94 (117) 01/27/19 16:40 Nasal Cannula 4.0 01/27/19 15:41 98.4 Impression: Primary Impression: Pneumonia Condition: Stable Disposition: Admitted from ER Referrals: KARIN MELENDEZ DO (PCP) [employer]PA consult with MD: Verbally MD Consult Note: Dr. Zhao consulted for admission, who accepted patient. Problem Qualifiers Primary Impression: Pneumonia Pneumonia type: due to unspecified organism Laterality: right Lung loca tion: lower lobe of lung Qualified Codes: J18.1 - Lobar pneumonia, unspecified organism DAVID MAYERS Jan 27, 2019 16:02
--- NOTE | 2019-01-27 16:26 | EKG ---
FACILITY: PATIENT NAME: ELIZABETH ROD : [id number] MR: [id number] V: [id number] EXAM DATE: ORDERING PHYSICIAN: DAVID MAYERS TECHNOLOGIST: DAMI Test Reason : Blood Pressure : / mmHG Vent. Rate : 093 BPM Atrial Rate : 075 BPM P-R Int : 000 ms QRS Dur : 106 ms QT Int : 346 ms P-R-T Axes : 000 113 -73 degrees QTc Int : 430 ms Atrial fibrillation Left posterior fascicular block ST and T wave abnormality, consider inferior ischemia or digitalis effect Abnormal ECG When compared with ECG of 29-NOV-2018 11:10, Vent. rate has increased BY 39 BPM Nonspecific T wave abnormality no longer evident in Anterior leads Confirmed by SANJU ESCALANTE ([id number]) on 01/27/2019 5:14:03 PM Referred By: Confirmed By:SANJU ESCALANTE
[2019-01-27 16:28] LABS: PLATELET COUNT, AUTOMATED 215 K/uL (150-450)
[2019-01-27] MEDS ORDERED: ALBUTEROL/IPRATROPIUM 3 ML NEB NEB ONE (16:30)
--- NOTE | 2019-01-27 17:41 | RADIOLOGY IMAGING REPORT ---
FACILITY: [facility] PATIENT NAME: Elena Saunders : 1945 MR: [id number] V: [id number] EXAM DATE: ORDERING PHYSICIAN: DAVID MAYERS TECHNOLOGIST: Location: [facility] [place] Patient: Elena Saunders : 1945 Visit/Account:[id number] Date of Sevice: 01/27/[address] scan without contrast COMPARISONS: CT of the head without contrast dated November 29, 2018 ADDITIONAL PERTINENT HISTORY: Fall TECHNIQUE: Multiple axial images were obtained from the skull base to the vertex without IV contrast . One of the following dose optimization techniques was utilized in the performance of this exam: Aut omated exposure control; adjustment of the mA and/or kV according to the patient's size; or use of an iterative reconstruction technique. Specific details can be referenced in the facility's radiology CT exam operational policy. FINDINGS: Midline shift: Negative Ventricles: Mild enlargement of the lateral and third ventricles stable from previous exam. Brain parenchyma: Patchy hypoattenuation within the periventricular and subcortical white matter, no nspecific but likely representing small vessel ischemic change on a chronic basis. No intraparenchyma l hemorrhage. Extra-axial spaces: Moderate cerebral atrophy. Intracranial vasculature: Cavernous internal carotid artery calcifications. Otherwise negative Osseous structures: Negative Paranasal sinuses and mastoid air cells: Air-fluid level involving both maxillary sinuses. Otherwise negative Surrounding soft tissues and orbits: Negative IMPRESSION: 1. Age related changes as described above. 2. No evidence of acute intracranial pathology. Report Dictated By: Shiva Gama MD at 01/27/2019 5:35 PM Report E-Signed By: Shiva Gama MD at 01/27/2019 5:37 PM WSN:[id number]
--- NOTE | 2019-01-27 17:44 | RADIOLOGY IMAGING REPORT ---
FACILITY: [facility] PATIENT NAME: Elena Saunders : 1945 MR: [id number] V: [id number] EXAM DATE: ORDERING PHYSICIAN: DAVID MAYERS TECHNOLOGIST: Location: [facility] Patient: Elena Saunders : 1945 Visit/Account:[id number] Date of Sevice: 01/27/2019 CHEST SINGLE AP COMPARISONS: 2 view chest dated September 07, 2018 ADDITIONAL PERTINENT HISTORY: Fall FINDINGS: Cardiomediastinal silhouette: Patient status post median sternotomy. Otherwise negative Pulmonary vasculature: Atherosclerotic disease of the thoracic aortic arch. Lung delgado: Patchy areas of opacity involving the right lung base which could represent either a re gion of atelectatic change versus infiltrate. Likely atelectatic change at the left lung base. Pleural spaces: Small bilateral pleural effusions. Osseous structures: Negative. Surrounding soft tissues: Negative. IMPRESSION: 1. Continued presence of bilateral pleural effusions slightly decreased on the left from previous exa m. 2. Patchy regions of atelectatic change versus infiltrate at the right lung base. 3. Continued mild atelectatic change at the left lung base. Report Dictated By: Shiva Gama MD at 01/27/2019 5:38 PM Report E-Signed By: Shiva Gama MD at 01/27/2019 5:39 PM WSN:[id number]
[2019-01-27] MEDS ORDERED: cefTRIAXone 1 GM VIAL IVP ONE (18:00)
[2019-01-27] MEDS ORDERED: AZITHROMYCIN(*) 500 MG 500 MG in NS(*) 0.9% 250 ML BAG 250 ML IVPB ONE (18:00)
[2019-01-27] MEDS ORDERED: INFLUENZA VIRUS VAC 0.5ML SYR IM ONLY ONE (18:20)
--- NOTE | 2019-01-27 18:31 | History & Physical ---
History of Present Illness Chief Complaint Fall History of Present Illness This patient presented to the emergency room after she was found on the floor by home health. The patient reports that she slid out of her chair last evening and was unable to get back up. She remained on the floor until this morning until home health workers arrived. History Problems: (1) Acute diastolic heart failure Status: Acute (2) Hypercholesteremia Status: Chronic (3) Essential hypertension Status: Chronic (4) Type II diabetes mellitus Status: Chronic (5) CAD (coronary artery disease) Status: Chronic (6) CKD (chronic kidney disease) stage 3, GFR 30-59 ml/min Status: Chronic (7) CHRONIC ATRIAL FIBRILLATION Status: Chronic Home Meds Active Scripts Insulin NPH Human Isophane (Humulin N) 100 Unit/Ml Vial, 30 UNIT SUBQ BIDBS, #1 VIAL Prov:YARELI THURMAN MD 12/22/18 Amlodipine Besylate (AMLODIPINE BESYLATE) 10 Mg Tablet, 1 TAB PO QDAY, #90 TAB Prov:YARELI THURMAN MD 12/22/18 Nitrofurantoin Monohyd/M-Cryst (NITROFURANTOIN MONO-MCR 100 MG) 100 Mg Capsule, 50 MG PO QHS for UTI prophylaxis, #30 CAPSULE 3 Refills Prov:MACHELLE ISBELL MD 11/19/18 Digoxin (Digox) 125 Mcg Tablet, 0.125 MG PO QDAY, #30 TAB Prov:MARIAJOSE RODARTE [facility] 09/11/18 Carvedilol (CARVEDILOL) 25 Mg Tablet, 25 MG PO BID, #60 TAB Prov:MARIAJOSE RODARTE [facility] 09/11/18 Gabapentin (GABAPENTIN) 300 Mg Capsule, 300 MG PO BID, #60 CAPSULE Prov:MARIAJOSE RODARTE [facility] 07/18/18 Reported Medications Vitamins A and D (Sween Cream) 85 Gm Cream..g., TOP QDAY PRN for ITCHING 09/09/18 Rivaroxaban 15 Mg (XARELTO 15 MG) 15 Mg Tablet, 15 MG PO QDAY, TAB 09/09/18 Acetaminophen (TYLENOL) 325 Mg Tablet, 650 MG PO Q6H PRN for PAIN, TAB 09/08/18 Melatonin (MELATONIN) 3 Mg Tablet, 3 MG PO HS 08/02/18 Atorvastatin Calcium (ATORVASTATIN CALCIUM) 20 Mg Tablet, 1 TAB PO QDAY, TAB 07/06/18 Oxygen (OXYGEN) Inha, 3 L INH, L 06/18/17 Cranberry Extract (CRANBERRY) 200 Mg Capsule, 200 MG PO BID, CAPSULE 11/11/14 Multivitamin (MULTI VITAMIN DAILY) 1 Each Tablet, 1 EACH PO QDAY 04/14/14 Allergies: Coded Allergies: ketorolac (Verified Allergy, Severe, COULD NOT SEE, N&V, THOUGHT SHE WAS GOING TO , 01/27/19) ibuprofen (Verified Adverse Reaction, Unknown, DIZZINESS, NAUSEA, VOMITING, 01/27/19) Patient History: FH: type 2 diabetes mellitus CHILD UTI (urinary tract infection) MOTHER (CKD), , Age:92 Hx Smoking: No Smoking Status: Never Smoker Exposure to Second Hand Smoke?: Yes Caffeine Intake: Soda Caffeine/Cups Per Day: Diet Pepsi Hx Alcohol Use: No Hx Substance Use Disorder: No Social Drug Use: Never Review of Systems All Systems Reviewed/Normal: Yes, Except as Noted Neurological: Weakness Exam Vital Signs Vital Signs Date Time Temp Pulse Resp B/P (MAP) Pulse Ox O2 Delivery O2 Flow Rate FiO2 01/27/19 17:30 165/120 (135) 01/27/19 17:27 108 25 91 01/27/19 16:40 Nasal Cannula 4.0 01/27/19 15:41 98.4 Neuro: No Gross deficits Eyes: PERRLA Cardiovascular: Regular Rate and Rhythm Respiratory: Other (Diminished breath sound at right base.) GI: Abd Soft and Non-Tender Extremities: No Edema Integumentary: No Cyanosis Medical Decision Making Data Points Result Diagram: 01/27/19 1535 01/27/19 1633 Assessment and Plan Problems: (1) Bacterial pneumonia Assessment & Plan: She does not have any respiratory symptoms, but her x-ray showed a new right lower lobe infiltrate and her WBC is elevated. She has been started on empiric treatment with ceftriaxone and azithromycin. A repeat CBC and chest x-ray are ordered for the morning. (2) CHRONIC ATRIAL FIBRILLATION Status: Chronic Assessment & Plan: She is on chronic treatment with digoxin and Xarelto. (3) Essential hypertension Status: Chronic Assessment & Plan: She is on chronic treatment with amlodipine and carvedilol. (4) Type II diabetes mellitus Status: Chronic Assessment & Plan: She is on chronic treatment with NPH, which has been held. She has been placed on sliding scale level #2. Copies to: KARIN MELENDEZ DO ; Venous Thromboembolism Antithrombotics Is Pt On Any Antithrombotics?: Yes Exam Sepsis Risk: Possible Sepsis Risk SANJU ESCALANTE DO Jan 27, 2019 18:31
[2019-01-27 19:54] VITALS: BP 158/93
[2019-01-27] MEDS: GABAPENTIN 300 MG CAP PO SCH (20:17)
[2019-01-27] MEDS: CARVEDILOL 25 MG TABLET PO SCH (20:17)
[2019-01-27] MEDS: NS(*) 0.9% 1000 ML BAG 1,000 ML IV PRN (20:17)
[2019-01-27] MEDS: INSULIN HUM LISPRO 100 UN/ML 3 ML VIAL SUBQ PRN (20:20)
[2019-01-28 02:11] VITALS: BP 156/72
[2019-01-28 06:14] LABS: PLATELET COUNT, AUTOMATED 150 K/uL (150-450)
[2019-01-28 07:19] VITALS: BP 146/81
[2019-01-28 07:58] VITALS: Ht 162.6 cm; Wt 74.4 kg
[2019-01-28] MEDS: INSULIN HUM LISPRO 100 UN/ML 3 ML VIAL SUBQ PRN ×4 (08:03→20:51)
[2019-01-28] MEDS: CARVEDILOL 25 MG TABLET PO SCH ×2 (09:45→20:44)
[2019-01-28] MEDS: amLODIPine BESYL(*) 5 MG TAB PO SCH (09:45)
[2019-01-28] MEDS: DIGOXIN 0.125 MG TAB PO SCH (09:46)
[2019-01-28] MEDS: RIVAROXABAN 10 MG TAB PO SCH (09:46)
[2019-01-28] MEDS: GABAPENTIN 300 MG CAP PO SCH ×2 (09:46→20:44)
[2019-01-28] MEDS: DOXYCYCLINE HYCL 100 MG VIAL 100 MG in NS(*) 0.9% 250 ML BAG 250 ML IV SCH ×2 (09:49→20:45)
--- NOTE | 2019-01-28 09:53 | Hospitalist Progress Note ---
Subjective Progress Notes Subjective She was admitted with pneumonia. She had no acute events overnight. Patient Complains of: Cardiovascular: No: Chest Pain Respiratory: Shortness of Breath Physical Exam Vital Signs Date Time Temp Pulse Resp B/P (MAP) Pulse Ox O2 Delivery O2 Flow Rate FiO2 01/28/19 07:25 93 High-Flow Nasal Cannula 6.0 01/28/19 07:19 98.2 86 20 146/81 (102) Intake and Output 01/28/19 01:00 Intake Total 250 ml Balance 250 ml IV Total 250 ml General Appearance: Alert, Awake, No Acute Distress, Afebrile Cardiovascular: Regular Rate and Rhythm Respiratory: No Respiratory Distress, Other (diminished lung sounds bilateral bases) GI: Soft and Non-Tender Psych: Alert & Oriented X3, Appropriate Mood & Affect Result Diagram: 01/28/19 0554 01/28/19 0554 Monitor Interpretation: Atrial Fibrillation Assessment and Plan Problems: (1) Bacterial pneumonia Status: Acute Assessment & Plan: She does not have any respiratory symptoms, but her x-ray showed a new right lower lobe infiltrate and her WBC is elevated. WBC now normal. She was started on empiric treatment with ceftriaxone and azithromycin. Chest x-ray pending for this morning. She is requiring 6L from her usual 2L baseline oxygen use. (2) CHRONIC ATRIAL FIBRILLATION Status: Chronic Assessment & Plan: She is on chronic treatment with digoxin and Xarelto. Digoxin level wnl. (3) Essential hypertension Status: Chronic Assessment & Plan: She is on chronic treatment with amlodipine and carvedilol. (4) Type II diabetes mellitus Status: Chronic Assessment & Plan: She is on chronic treatment with NPH, which has been held. She has been placed on sliding scale level #2. (5) Acute renal failure Status: Acute Assessment & Plan: She was admitted with creatinine of 1.4. It has decreased with gentle IV fluids to 1.1. Exam Sepsis Risk: No Definite Risk MARIAJOSE RODARTE Jan 28, 2019 09:53
--- NOTE | 2019-01-28 10:32 | RADIOLOGY IMAGING REPORT ---
FACILITY: [facility] PATIENT NAME: Elena Saunders : 1945 MR: [id number] V: [id number] EXAM DATE: ORDERING PHYSICIAN: MARIAJOSE RODARTE TECHNOLOGIST: Location: [facility] - [place], [place] Patient: Elena Saunders : 1945 Visit/Account:[id number] Date of Sevice: 01/28/2019 CHEST SINGLE AP Indication: pneumonia Comparison: Chest x-ray 01/27/2019 Findings: Lungs: Right lower lobe airspace opacity is unchanged. Prominent interstitial markings are both lung s are stable. There is mild blunting of the left costophrenic angle. Mediastinum/pulmonary vasculature: Heart size and pulmonary vasculature are normal. Bones/soft tissues: Sternotomy wires are unchanged. IMPRESSION: 1. Right lower lobe airspace opacity is unchanged. Differential diagnosis includes pleural effusion with adjacent atelectasis and/or pneumonia. 2. Small left pleural effusion, stable. 3. Prominent interstitial markings throughout both lungs, most consistent with chronic interstitial change. Report Dictated By: Franklin Olvera at 01/28/2019 10:26 AM Report E-Signed By: Franklin Olvera at 01/28/2019 10:27 AM WSN:KONSTANTIN
--- NOTE | 2019-01-28 10:49 | NUR ---
Physical Therapy Impression PT eval complete. Pt able to get OOB with SBA, perform sit>stand transfers from bed and toilet with CGA, and ambulate to/from the bathroom using RW with CGA. Pt reports 6 "falls" at home in the last month during which she slid off the surface she was sitting in. Pt reports the "firemen" help her up. Pt reports wishing she could "sleep for 10 days". Recommend 24 hour care. Physical Therapy Goals 1. SBA bed mobility. 2. SBA transfers. 3. SBA gait x 150' with RW. 4. Ascend/descend 1 stair SBA. Patient's Goals
[2019-01-28] MEDS: ACETAMINOPHEN 325 MG TAB PO PRN ×2 (11:57→21:31)
[2019-01-28] MEDS: NS(*) 0.9% 1000 ML BAG 1,000 ML IV PRN (13:24)
[2019-01-28 13:26] VITALS: BP 136/69
[2019-01-28 15:30] VITALS: BP 156/74
[2019-01-28] MEDS: cefTRIAXone 2 GM VIAL IVP SCH (18:07)
[2019-01-28] MEDS ORDERED: AZITHROMYCIN(*) 500 MG 500 MG in NS(*) 0.9% 250 ML BAG 250 ML IVPB SCH (18:30)
[2019-01-28 19:25] VITALS: BP 167/89
[2019-01-28 23:11] VITALS: BP 144/83
[2019-01-29 02:56] VITALS: BP 158/82
[2019-01-29 06:56] VITALS: BP 156/97
[2019-01-29] MEDS: DOXYCYCLINE HYCL 100 MG VIAL 100 MG in NS(*) 0.9% 250 ML BAG 250 ML IV SCH ×2 (09:16→20:23)
[2019-01-29] MEDS: amLODIPine BESYL(*) 5 MG TAB PO SCH (09:16)
[2019-01-29] MEDS: DIGOXIN 0.125 MG TAB PO SCH (09:17)
[2019-01-29] MEDS: GABAPENTIN 300 MG CAP PO SCH ×2 (09:18→20:22)
[2019-01-29] MEDS: CARVEDILOL 25 MG TABLET PO SCH ×2 (09:18→20:22)
[2019-01-29] MEDS: RIVAROXABAN 10 MG TAB PO SCH (09:18)
[2019-01-29] MEDS: INSULIN HUM ISO(NPH) 100 UN/ML 3 ML VIAL SUBQ SCH ×2 (09:19→17:10)
[2019-01-29 11:06] VITALS: BP 150/73
[2019-01-29] MEDS: INSULIN HUM LISPRO 100 UN/ML 3 ML VIAL SUBQ PRN ×3 (11:17→21:17)
--- NOTE | 2019-01-29 11:28 | Hospitalist Progress Note ---
Subjective Progress Notes Subjective She was admitted with pneumonia. She had no acute events overnight. Patient Complains of: Cardiovascular: No: Chest Pain Respiratory: No: Shortness of Breath Physical Exam Vital Signs Date Time Temp Pulse Resp B/P (MAP) Pulse Ox O2 Delivery O2 Flow Rate FiO2 01/29/19 11:06 98.4 91 20 150/73 (98) 94 Nasal Cannula 01/29/19 07:32 4.0 Intake and Output 01/29/19 01:00 Intake Total 3119 ml Balance 3119 ml Intake Oral 1878 ml IV Total 1241 ml # Voids 10 # Bowel Movements 1 General Appearance: Alert, Awake, No Acute Distress, Afebrile Neuro: No Gross deficits Cardiovascular: Regular Rate and Rhythm Respiratory: No Respiratory Distress, Clear to Auscultation GI: Soft and Non-Tender Psych: Alert & Oriented X3, Appropriate Mood & Affect Result Diagram: 01/28/19 0554 01/28/19 0554 Monitor Interpretation: Atrial Fibrillation Assessment and Plan Problems: (1) Bacterial pneumonia Status: Acute Assessment & Plan: She does not have any respiratory symptoms, but her x-ray showed a new right lower lobe infiltrate and her WBC is elevated. WBC now normal. She was started on empiric treatment with ceftriaxone and azithromycin. She is requiring 5L from her usual 2L baseline oxygen use. (2) CHRONIC ATRIAL FIBRILLATION Status: Chronic Assessment & Plan: She is on chronic treatment with digoxin and Xarelto. Digoxin level wnl. (3) Essential hypertension Status: Chronic Assessment & Plan: She is on chronic treatment with amlodipine and carvedilol. (4) Type II diabetes mellitus Status: Chronic Assessment & Plan: She is on chronic treatment with NPH, which has been restarted at half her usual dose. She has been placed on sliding scale level #2. (5) Acute renal failure Status: Acute Assessment & Plan: She was admitted with creatinine of 1.4. It has decreased with gentle IV fluids to 1.1. Exam Sepsis Risk: No Definite Risk MARIAJOSE RODARTE Jan 29, 2019 11:28
--- NOTE | 2019-01-29 11:37 | Antimicrobial Stewardship ---
Antimicrobial Stewardship Empiricly appropriate: Yes (Pneumonia) Significant PMH: Yes (Small Cell lymphoma, hypogammaglobulinemia, falls, rib fx) Support empiric regimen: Yes (Ceftriaxone + Doxycycline) Renal/Hepatic dosing: Yes Comment Scr 1.4->1.1 Determine cumulative duration: Started on 01/28/19 - Day 2 Determine standard duration: 7 Days Comment 73 yo F with a PMH of afib, pneumonia, falls/rib fractures, Small cell lymphoma, and hypogammaglobulinemia who presented to the ED with hypoxia and was found on the floor by home health, reported that she had slid out of her chair. Tmax afebrile WBC 12.5-->8 Neuts 77.9% -->71.3% Scr 1.4-->1.1 Chest xray showed RLL infiltrate Started on Ceftriaxone + Azithromycin in the ED, switched to Ceftriaxone + doxycycline for presumed pneumonia Last IVIG dose on 01/23/19 (IgG 253, IgM 18) Continue treatment for pneumonia with ceftriaxone + doxycycline x 7 days, switch to oral antibiotics tomorrow. Today is day 2 of therapy. Lisa Schroeder, PharmD, BCOP LISA SCHROEDER Jan 29, 2019 11:37
--- NOTE | 2019-01-29 12:40 | Medical Nutrition Therapy ---
Nutrition Anthropometrics Height (Inches): 64.00 Height (Calculated Centimeters: 162.340575 Weight (Pounds): 159 Weight (Calculated Kilograms): 72.121 BMI: 27.3 Arnoldo Nutrition Score: Adequate Arnoldo Nutrition Risk Score: 18 Dietary Referral Nutrition Risk Factors: Special Diet Nutrition Risk Comment: Physical Findings Physical Appearance: Overweight BMI 25-29 Skin Appearance Skin Appearance: Edema Edema Location Modifier: Left Edema Location: Hand Type of Edema: Degree of Edema: 2+ Gastrointestinal Symptoms GI Symtoms: Appetite Changes Tube Present: Bowel Sounds: Recent Bowel Pattern: Stool Characteristics: Nutritional Diagnosis Nutritional Risk Acuity 1: Acute/ES Renal Nutritional Risk Acuity 4: Modified Diet Past Medical History: CAD, HTN, T2DM, CKD-3, non-Hodkins lymphoma, CHF, chronic edema, chronic UTI, hypercholesteremia, urinary incontinence, chronic renal disease, pulmonary nodule, GI bleed, anemia, ribs (multiple fractures), hypogammagloblinemia, lumbosacral spinal surgery, tonsillectomy, and cataract extraction and CABG, T2DM, chronic afib. Nutritional Acuity: 1-High Nutrition Diagnosis: Decreased Nutrient Needs Nutrition Etiology: Physiological Causes Nutrition Problem/Etiology/Sym: Decreased protein, na, fluids, phos and K+ r/t dx ARF AEB BUN 19, creatinine 1.1 Energy Requirement: 1570 (MSJ) Protein Requirement: 58 (.8gm/kg) Diet Type: Diabetic Nutrition Intervention: Cont diet as ordered, Encourage intake Nutrition Monitoring & Eval Nutrition Goals: Eat 75-100% Meal RD Patient Assessment Time: [address] Assessment Type: RD Screen Patient Nutrition Acuity: 1-High Follow Up Date: Jan 31, 2019 Nutritional Comment: Pt admitted after a fall. Dx with bacterial pneumonia. Pt has an extenseive medical hx. Pt currently on rivaroxaban and insulin. ADA diet with no reported intakes at this time. Pt is experiencing 1+ pitting edema in left lower extremity and 2+ pitting edema in the right lower extremity. RBC of 3.59, Hgb of 9.3, and Hct of 29.3 are decreased. Whole blood glucose of 289 is elevated. BUN of 19 and creatinine of 1.10 are elevated. Monitor for adequate intake and blood glucose. -AKG 01/29 Pt admitted for pneumonia with dx ARF. BUN currentluy WNR at 19, Creatinine improved since admission but cont elevated at 1.1. Pt on diabetic diet and eating 50-75% of meals. RBG elevated up to 304. Pt is recieving insulin. Pt cont edemal BLE. Will cont to monitor and encourage intake. RAS LUJAN Jan 29, 2019 12:40
--- NOTE | 2019-01-29 14:45 | NUR ---
Occupational Therapy Impression SBA supine to sit with HOB raised. CGA ambulation with RW. SpO2 WNL on 5L. SBA toileting. Min A sit to supine. Recommend 24/7 supervision upon discharge. Continue with HH services. Occupational Therapy Goals 1) Pt will be SBA toilet task. 2) Pt will be SBA grooming/hygiene. 3) Pt will be SBA UB/LB dressing. Patient's Goal
[2019-01-29 15:40] VITALS: BP 168/77
--- NOTE | 2019-01-29 15:59 | NUR ---
Physical Therapy Impression Pt demonstrated improved endurance, tolerating ambulation well on less supplemental O2. Pt required SBA for supine>sit bed mobility, Min A sit>supine. Pt reported some lightheadedness upon sitting EOB, that quickly went away. CGAx1 with use of RW provided for sit<>stand xfers and ambulation. Pt ambulated 25 ft, from bed to hallway. Pt would benefit from further skilled PT care to improve strength/endurance to levels capable of safely functioning independently. Rec 24 hour care upon discharge. Pt was left supine in bed with all needs met and call light in reach. Physical Therapy Goals 1. SBA bed mobility. 2. SBA transfers. 3. SBA gait x 150' with RW. 4. Ascend/descend 1 stair SBA. Patient's Goals Addendum: 01/29/19 at 1559 by АННА LONDONO PT Amended: Links added.
[2019-01-29] MEDS: cefTRIAXone 2 GM VIAL IVP SCH (18:25)
[2019-01-29 19:18] VITALS: BP 177/87
[2019-01-29 22:27] VITALS: BP 169/73
[2019-01-30] MEDS: ACETAMINOPHEN 325 MG TAB PO PRN ×3 (01:03→21:14)
[2019-01-30 03:21] VITALS: BP 160/78
[2019-01-30 05:38] LABS: PLATELET COUNT, AUTOMATED 148 K/uL (150-450)
[2019-01-30 06:51] VITALS: BP 175/74
--- NOTE | 2019-01-30 08:41 | NUR ---
Physical Therapy Impression Pt showed improved strength, ambulating further than previous sessions but did require breaks. Pt ambulated 45 ft with CGAx1, 4L of O2 and use of RW. Pt required 3 sitting breaks as she felt "like her legs were going to give out". SpO2 remained >90% throughout ambulation. Pt required MinAx2 for first sit to stand transfer, after 3 unsuccessful attempts on own. For following sit<>stand xfers, Pt required CGA. Pt would benefit from further skilled PT care to improve strength/endurance. Pt was left sitting in chair with all needs met, call light in reach, and O2 on. Rec 24 hour care at discharge. Physical Therapy Goals 1. SBA bed mobility. 2. SBA transfers. 3. SBA gait x 150' with RW. 4. Ascend/descend 1 stair SBA. Patient's Goals
[2019-01-30] MEDS: guaiFENesin 600 MG TABCR PO SCH ×2 (09:58→21:14)
[2019-01-30] MEDS: DIGOXIN 0.125 MG TAB PO SCH (09:59)
[2019-01-30] MEDS: RIVAROXABAN 10 MG TAB PO SCH (09:59)
[2019-01-30] MEDS: GABAPENTIN 300 MG CAP PO SCH ×2 (09:59→21:14)
[2019-01-30] MEDS: amLODIPine BESYL(*) 5 MG TAB PO SCH (09:59)
[2019-01-30] MEDS: CARVEDILOL 25 MG TABLET PO SCH ×2 (09:59→21:14)
[2019-01-30] MEDS: DOXYCYCLINE HYCL 100 MG VIAL 100 MG in NS(*) 0.9% 250 ML BAG 250 ML IV SCH ×2 (10:00→21:14)
[2019-01-30] MEDS ORDERED: NITR50CA39 PO (10:16)
[2019-01-30] MEDS ORDERED: MIRA50TA PO (10:16)
[2019-01-30] MEDS ORDERED: RIVA20TA PO (10:16)
--- NOTE | 2019-01-30 11:08 | Hospitalist Progress Note ---
Subjective Progress Notes Subjective She was admitted with pneumonia. She had no acute events overnight. Patient Complains of: Cardiovascular: No: Chest Pain Respiratory: No: Shortness of Breath Physical Exam Vital Signs Date Time Temp Pulse Resp B/P (MAP) Pulse Ox O2 Delivery O2 Flow Rate FiO2 01/30/19 09:59 99 01/30/19 06:51 98.2 16 175/74 (107) 92 Nasal Cannula 4.5 Intake and Output 01/30/19 07:00 Intake Total 1210 ml Balance 1210 ml Intake Oral 960 ml IV Total 250 ml # Voids 4 # Bowel Movements 1 General Appearance: Alert, Awake, No Acute Distress, Afebrile Neuro: No Gross deficits Cardiovascular: Regular Rate and Rhythm Respiratory: No Respiratory Distress, Clear to Auscultation GI: Soft and Non-Tender Psych: Alert & Oriented X3, Appropriate Mood & Affect Result Diagram: 01/30/1952301/30/19523 Monitor Interpretation: Atrial Fibrillation Assessment and Plan Problems: (1) Bacterial pneumonia Status: Acute Assessment & Plan: She does not have any respiratory symptoms, but her x-ray showed a new right lower lobe infiltrate and her WBC is elevated. WBC now normal. She was started on empiric treatment with ceftriaxone and azithromycin. She is requiring 4.5L from her usual 2L baseline oxygen use. (2) CHRONIC ATRIAL FIBRILLATION Status: Chronic Assessment & Plan: She is on chronic treatment with digoxin and Xarelto. Digoxin level wnl. (3) Essential hypertension Status: Chronic Assessment & Plan: She is on chronic treatment with amlodipine and carvedilol. (4) Type II diabetes mellitus Status: Chronic Assessment & Plan: She is on chronic treatment with NPH. She has been placed on sliding scale level #2. (5) Acute renal failure Status: Acute Assessment & Plan: She was admitted with creatinine of 1.4. It has decreased with gentle IV fluids to 1.1. Exam Sepsis Risk: No Definite Risk MARIAJOSE RODARTE Jan 30, 2019 11:08
--- NOTE | 2019-01-30 11:29 | NUR ---
This Physical Therapist or Automobile Engine Assembler was present for the entire physical therapy session directing the services, making the skilled judgement, and was not engaged in treating another patient or doing another task at the same time as the treatment session. Addendum: 01/30/19 at 1129 by LINDA KOHLI PT Amended: Links added.
[2019-01-30] MEDS: INSULIN HUM LISPRO 100 UN/ML 3 ML VIAL SUBQ PRN ×3 (11:32→21:14)
--- NOTE | 2019-01-30 14:46 | NUR ---
Occupational Therapy Impression SBA bed mobility in/out with HOB flat. SBA ambulation with RW x15ft, x20ft. SBA toileting. SBA grooming sink front. Independent LB dressing (donning/doffing brief) SpO2 WNL on 4L. Recommend HomeHealth services and all supports that are available. Occupational Therapy Goals 1) Pt will be SBA toilet task. 2) Pt will be SBA grooming/hygiene. 3) Pt will be SBA UB/LB dressing. Patient's Goal
[2019-01-30 16:25] VITALS: BP 158/83
[2019-01-30] MEDS: INSULIN HUM ISO(NPH) 100 UN/ML 3 ML VIAL SUBQ SCH (16:25)
[2019-01-30] MEDS ORDERED: ONDANSETRON HCL 4 MG/5 ML PO PRN (16:50)
[2019-01-30] MEDS ORDERED: ONDANSETRON 4 MG/2 ML VIAL IVP PRN (16:55)
[2019-01-30] MEDS: cefTRIAXone 2 GM VIAL IVP SCH (18:04)
[2019-01-30 18:48] VITALS: BP 169/66
[2019-01-30] MEDS ORDERED: MELATONIN 3 MG TAB PO SCH (21:00)
[2019-01-30 22:27] VITALS: BP 173/76
[2019-01-31 06:45] VITALS: BP 171/82
[2019-01-31] MEDS: ACETAMINOPHEN 325 MG TAB PO PRN (08:03)
[2019-01-31] MEDS: INSULIN HUM ISO(NPH) 100 UN/ML 3 ML VIAL SUBQ SCH (08:03)
--- NOTE | 2019-01-31 08:57 | NUR ---
Physical Therapy Impression Pt demonstrated improved endurance, ambulating a further distance and not requiring any seated breaks. Pt ambulated 70 ft with CGAx1, RW, and 4L of O2. Pt required SBA for bed mobility and CGAx1 for sit<>stand xfers. Pt would benefit from further skilled PT care during her hospital admission to continue to improve strength and endurance to decrease fall risk. Rec 24 hour care at discharge. Physical Therapy Goals 1. SBA bed mobility. 2. SBA transfers. 3. SBA gait x 150' with RW. 4. Ascend/descend 1 stair SBA. Patient's Goals
[2019-01-31] MEDS ORDERED: DOXYCYCLINE HYCL 100 MG TAB PO SCH (09:00)
[2019-01-31] MEDS ORDERED: CEFDINIR 300 MG CAP PO SCH (09:00)
[2019-01-31] MEDS: guaiFENesin 600 MG TABCR PO SCH (09:33)
[2019-01-31] MEDS: DIGOXIN 0.125 MG TAB PO SCH (09:33)
[2019-01-31] MEDS: GABAPENTIN 300 MG CAP PO SCH (09:34)
[2019-01-31] MEDS: CARVEDILOL 25 MG TABLET PO SCH (09:34)
[2019-01-31] MEDS: amLODIPine BESYL(*) 5 MG TAB PO SCH (09:34)
[2019-01-31] MEDS: RIVAROXABAN 10 MG TAB PO SCH (09:34)
--- NOTE | 2019-01-31 09:57 | NUR ---
This Physical Therapist or Form Block Maker was present for the entire physical therapy session directing the services, making the skilled judgement, and was not engaged in treating another patient or doing another task at the same time as the treatment session. Addendum: 01/31/19 at 0957 by LINDA KOHLI PT Amended: Links added.
--- NOTE | 2019-01-31 10:54 | Hospitalist Progress Note ---
Subjective Progress Notes Subjective She was admitted with pneumonia. She has no complaints. She had no acute events overnight. Patient Complains of: Cardiovascular: No: Chest Pain Respiratory: No: Shortness of Breath Physical Exam Vital Signs Date Time Temp Pulse Resp B/P (MAP) Pulse Ox O2 Delivery O2 Flow Rate FiO2 01/31/19 09:33 88 01/31/19 06:45 98.4 14 171/82 (111) 93 Nasal Cannula 4.0 Intake and Output 01/31/19 07:01 Intake Total 220 ml Balance 220 ml Intake Oral 220 ml # Voids 6 # Bowel Movements 1 General Appearance: Alert, Awake, No Acute Distress, Afebrile Neuro: No Gross deficits Cardiovascular: Regular Rate and Rhythm Respiratory: No Respiratory Distress, Other (diminished lung sounds) GI: Soft and Non-Tender Psych: Alert & Oriented X3, Appropriate Mood & Affect Result Diagram: 01/30/1952301/30/19523 Monitor Interpretation: Atrial Fibrillation Assessment and Plan Problems: (1) Bacterial pneumonia Status: Acute Assessment & Plan: She does not have any respiratory symptoms, but her x-ray showed a new right lower lobe infiltrate and her WBC is elevated. WBC now normal. She was started on empiric treatment with ceftriaxone and doxycycline. She will be transitioned to Omnicef and Doxycycline. She is requiring 4L from her usual 3L baseline oxygen use. (2) CHRONIC ATRIAL FIBRILLATION Status: Chronic Assessment & Plan: She is on chronic treatment with digoxin and Xarelto. Digoxin level wnl. (3) Essential hypertension Status: Chronic Assessment & Plan: She is on chronic treatment with amlodipine and carvedilol. (4) Type II diabetes mellitus Status: Chronic Assessment & Plan: She is on chronic treatment with NPH. She has been placed on sliding scale level #2. (5) Acute renal failure Status: Acute Assessment & Plan: She was admitted with creatinine of 1.4. It has decreased with gentle IV fluids to 1.1. Exam Sepsis Risk: No Definite Risk MARIAJOSE RODARET ORDNANCE ARTIFICER HELPER Jan 31, 2019 10:54
[2019-01-31] MEDS ORDERED: DOXY-179 PO (11:42)
[2019-01-31] MEDS ORDERED: CEF300 PO (11:42)
[2019-01-31] MEDS ORDERED: LACT PO (11:42)
--- NOTE | 2019-01-31 11:50 | Medical Nutrition Therapy ---
Nutrition Anthropometrics Height (Inches): 64.00 Height (Calculated Centimeters: 162.025878 Weight (Pounds): 164 Weight (Calculated Kilograms): 74.389 BMI: 27.3 Arnoldo Nutrition Score: Adequate Arnoldo Nutrition Risk Score: 18 Dietary Referral Nutrition Risk Factors: Special Diet Nutrition Risk Comment: Physical Findings Physical Appearance: Overweight BMI 25-29 Skin Appearance Skin Appearance: Pale Edema Edema Location Modifier: Left Edema Location: Hand Type of Edema: Degree of Edema: 1+ Gastrointestinal Symptoms GI Symtoms: Appetite Changes (decreased typically good at home) Tube Present: Bowel Sounds: Recent Bowel Pattern: Stool Characteristics: Nutrition/Food History Decreasing Breakfast: Typically eats 3 meals per day Nutritional Diagnosis Nutritional Risk Acuity 1: Acute/ES Renal Nutritional Risk Acuity 4: Modified Diet Past Medical History: CAD, HTN, T2DM, CKD-3, non-Hodkins lymphoma, CHF, chronic edema, chronic UTI, hypercholesteremia, urinary incontinence, chronic renal disease, pulmonary nodule, GI bleed, anemia, ribs (multiple fractures), hypogammagloblinemia, lumbosacral spinal surgery, tonsillectomy, and cataract extraction and CABG, T2DM, chronic afib. Nutritional Acuity: 2-Moderate Nutrition Diagnosis: Inadequate Food Intake, Decreased Nutrient Needs Nutrition Etiology: Loss of Appetite, Physiological Causes Nutrition Problem/Etiology/Sym: Pt reported decreased appetite, eating 65% of meals Energy Requirement: 1570 (MSJ) Protein Requirement: 58 (.8gm/kg) Diet Type: Diabetic Nutrition Intervention: Cont diet as ordered, Encourage intake Diet Comment To RSA: Encourage healthy snacks between meals. Nutrition Monitoring & Eval Nutrition Follow-Up: Fair Intake Nutrition Monitoring: Monitor appetite, BG control RD Patient Assessment Time: [address] Assessment Type: RD Re-Assessment Patient Nutrition Acuity: 2-Moderate Follow Up Date: Feb 05, 2019 Nutritional Comment: Pt admitted after a fall. Dx with bacterial pneumonia. Pt has an extenseive medical hx. Pt currently on rivaroxaban and insulin. ADA diet with no reported intakes at this time. Pt is experiencing 1+ pitting edema in left lower extremity and 2+ pitting edema in the right lower extremity. RBC of 3.59, Hgb of 9.3, and Hct of 29.3 are decreased. Whole blood glucose of 289 is elevated. BUN of 19 and creatinine of 1.10 are elevated. Monitor for adequate intake and blood glucose. -AKG 01/29 Pt admitted for pneumonia with dx ARF. BUN currentluy WNR at 19, Creatinine improved since admission but cont elevated at 1.1. Pt on diabetic diet and eating 50-75% of meals. RBG elevated up to 304. Pt is recieving insulin. Pt cont edemal BLE. Will cont to monitor and encourage intake. BK 02/03/19-Discussed with pt this am. Appetite has been decreasing here, typically has good intake at home eating three meals per day. Pt stated her weight has been stable at home. Pt states she will be going to [facility]. She is eating 65% x last 6 meals here. Her BG has been ranging from 219 to 282 with average of 254. K+ and Na WNL, Creatinine 1.1 and BN 15. Do not need to limit K+ or Na. Encouraged pt to eat snacks to help with appetite. Will continue to monitor BG control and meal intake. REYNOLD EWING Jan 31, 2019 11:38
[2019-01-31] MEDS: INSULIN HUM LISPRO 100 UN/ML 3 ML VIAL SUBQ PRN (11:56)
--- NOTE | 2019-01-31 11:57 | Transfer Summary (ECF/SWB) ---
Transfer Summary (ECF/SWB) Problems: (1) Bacterial pneumonia Status: Acute Assessment & Plan: Her chest x-ray showed a new right lower lobe infiltrate and her WBC was elevated. She was started on empiric treatment with IV ceftriaxone and doxycycline. Her WBC count normalized. Her oxygen requirement did improve. She was transitioned to oral Omnicef and Doxycycline. She is still requiring 4L from her usual 3L baseline oxygen use. She did work with PT/OT during her stay. It was felt she would most likely need ongoing care either at home or in SNF. In the past, she has not done well at home even with home health care. Arrangements were made for transfer to [facility]. (2) UTI (urinary tract infection) Status: Acute Assessment & Plan: Due to E. coli. She was on the IV antibiotics for her pneumonia as noted above. Sensitivities showed the E. coli to be sensitive to ceftriaxone. She will complete her course of therapy with the Omnicef. She will resume her prophylactic nitrofurantoin as well. (3) CHRONIC ATRIAL FIBRILLATION Status: Chronic Assessment & Plan: She is on chronic treatment with digoxin and Xarelto. Her digoxin level was in therapeutic range. Her heart rate was controlled. (4) Essential hypertension Status: Chronic Assessment & Plan: She is on chronic treatment with amlodipine and carvedilol. (5) Type II diabetes mellitus Status: Chronic Assessment & Plan: She has been on chronic treatment with NPH. She was also covered with sliding scale level #2. (6) Acute renal failure Status: Acute Assessment & Plan: Mild. Most likely due to dehydration. She was admitted with creatinine of 1.4. It improved with gentle IV fluids to 1.1. Latest Vital Signs Vital Signs Date Time Temp Pulse Resp B/P (MAP) Pulse Ox O2 Delivery O2 Flow Rate FiO2 01/31/19 09:33 88 01/31/19 06:45 98.4 14 171/82 (111) 93 Nasal Cannula 4.0 Result Diagram: 01/30/1952301/30/19523 Diagnostics Item Value Date Time White Blood Count 12.5 k/uL H 01/27/19 1535 Hemoglobin 9.9 g/dL L 01/27/19 1535 Hematocrit 31.7 % L 01/27/19 1535 Platelet Count 215 K/uL 01/27/19 1535 Sodium Level 146 mmol/L H 01/27/19 1633 Potassium Level 4.7 mmol/L 01/27/19 1633 Chloride Level 105 mmol/L 01/27/19 1633 Carbon Dioxide Level 30 mmol/L 01/27/19 1633 Blood Urea Nitrogen 20 mg/dl H 01/27/19 1633 Creatinine 1.40 mg/dl H 01/27/19 1633 Glomerular Filtration Rate Calc 36.8 01/27/19 1633 Random Glucose 203 mg/dl H 01/27/19 1633 Lactate 0.8 mmol/L 01/27/19 1633 Calcium Level 10.1 mg/dl 01/27/19 1633 Total Bilirubin 0.7 mg/dl 01/27/19 1633 Aspartate Amino Transf (AST/SGOT) 25 U/L 01/27/19 1633 Alanine Aminotransferase (ALT/SGPT) 62 U/L H 01/27/19 1633 Alkaline Phosphatase 104 U/L 01/27/19 1633 Total Creatine Kinase 79 U/L 01/27/19 1633 Troponin I 0.017 ng/ml 01/27/19 1633 Total Protein 6.7 g/dl 01/27/19 1633 Albumin 3.7 g/dl 01/27/19 1633 B-Type Natriuretic Peptide 633 pg/ml H 01/27/19 0000 Digoxin Level 1.2 ng/ml 01/28/19 0806 Urine Mucus Few /HPF 01/27/19 1733 Urine Yeast (Budding) Many /HPF H 01/27/19 1733 Urine Bacteria Few /HPF 01/27/19 1733 Urine Squamous Epithelial Cells Many /LPF H 01/27/19 1733 Urine WBC Clumps Mod /HPF 01/27/19 1733 Urine WBC 782 /HPF 01/27/19 1733 Urine RBC 25 /HPF 01/27/19 1733 Urine Leukocyte Esterase Large H 01/27/19 1733 Urine Urobilinogen Negative mg/dL 01/27/19 1733 Urine Bilirubin Negative 01/27/19 1733 Urine Nitrite Negative 01/27/19 1733 Urine Blood Small 01/27/19 1733 Urine Ketones Negative mg/dL 01/27/19 1733 Urine Glucose (UA) 150 mg/dL H 01/27/19 1733 Urine Protein 100 mg/dL 01/27/19 1733 Urine Specific [place] 1.017 01/27/19 1733 Urine pH 6.0 pH 01/27/19 1733 Urine Clarity Cloudy 01/27/19 1733 Urine Color Yellow 01/27/19 1733 PATIENT NAME: Elena Saunders : 1945 MR: [id number] V: [id number] EXAM DATE: ORDERING PHYSICIAN: DAVID MAYERS TECHNOLOGIST: Location: [facility] [place] Patient: Elena Saunders : 1945 Visit/Account:[id number] Date of Sevice: 01/27/2019 CHEST SINGLE AP COMPARISONS: 2 view chest dated September 07, 2018 ADDITIONAL PERTINENT HISTORY: Fall FINDINGS: Cardiomediastinal silhouette: Patient status post median sternotomy. Otherwise negative Pulmonary vasculature: Atherosclerotic disease of the thoracic aortic arch. Lung delgado: Patchy areas of opacity involving the right lung base which could represent either a region of atelectatic change versus infiltrate. Likely atelectatic change at the left lung base. Pleural spaces: Small bilateral pleural effusions. Osseous structures: Negative. Surrounding soft tissues: Negative. IMPRESSION: 1. Continued presence of bilateral pleural effusions slightly decreased on the left from previous exam. 2. Patchy regions of atelectatic change versus infiltrate at the right lung base. 3. Continued mild atelectatic change at the left lung base. Report Dictated By: Shiva Gama MD at 01/27/2019 5:38 PM Report E-Signed By: Shiva Gama MD at 01/27/2019 5:39 PM WSN:[id number] PATIENT NAME: Elena Saunders : 1945 MR: [id number] V: [id number] EXAM DATE: ORDERING PHYSICIAN: DAVID MAYERS TECHNOLOGIST: Location: [facility] [place] Patient: Elena Saunders : 1945 Visit/Account:[id number] Date of Sevice: 01/27/[address] scan without contrast COMPARISONS: CT of the head without contrast dated November 29, 2018 ADDITIONAL PERTINENT HISTORY: Fall TECHNIQUE: Multiple axial images were obtained from the skull base to the vertex without IV contrast. One of the following dose optimization techniques was utilized in the performance of this exam: Automated exposure control; adjustment of the mA and/or kV according to the patient's size; or use of an iterative reconstruction technique. Specific details can be referenced in the facility's radiology CT exam operational policy. FINDINGS: Midline shift: Negative Ventricles: Mild enlargement of the lateral and third ventricles stable from previous exam. Brain parenchyma: Patchy hypoattenuation within the periventricular and subcortical white matter, nonspecific but likely representing small vessel ischemic change on a chronic basis. No intraparenchymal hemorrhage. Extra-axial spaces: Moderate cerebral atrophy. Intracranial vasculature: Cavernous internal carotid artery calcifications. Otherwise negative Osseous structures: Negative Paranasal sinuses and mastoid air cells: Air-fluid level involving both maxillary sinuses. Otherwise negative Surrounding soft tissues and orbits: Negative IMPRESSION: 1. Age related changes as described above. 2. No evidence of acute intracranial pathology. Report Dictated By: Shiva Gama MD at 01/27/2019 5:35 PM Report E-Signed By: Shiva Gama MD at 01/27/2019 5:37 PM WSN:[id number] Condition: Improved Disposition: SNF/NH ([facility]) Inpatient Medications Please see medication reconciliation. Treatment Goals and Plan Patient requires fdc and/or skilled rehabilitation with the goal to increase independence with ADL's, functional strength and mobility. Continue and adjust medication regimen. RAMIN THURMAN MD Jan 31, 2019 11:57
[2019-01-31] MEDS ORDERED: LACTOBACILLUS ACIDOPHILUS TAB PO SCH (17:00)
== END 2019-01-31 13:00 | DRG 194 ==
LOC: ER 16:05 → MED 18:13
PROVIDERS: ADMIT Family Medicine; ATTEND Family Medicine
DX: J15.9 Unspecified bacterial pneumonia (principal); N39.0 Urinary tract infection, site not specified; N17.9 Acute kidney failure, unspecified; J44.0 Chronic obstructive pulmonary disease with (acute) lower respiratory infection; I13.0 Hypertensive heart and chronic kidney disease with heart failure and stage 1 through stage 4 chronic kidney disease, or unspecified chronic kidney disease; I50.22 Chronic systolic (congestive) heart failure; I48.2 Chronic atrial fibrillation; E86.0 Dehydration; R09.02 Hypoxemia; I11.0 Hypertensive heart disease with heart failure; K21.9 Gastro-esophageal reflux disease without esophagitis; E78.00 Pure hypercholesterolemia, unspecified; I25.10 Atherosclerotic heart disease of native coronary artery without angina pectoris; E11.22 Type 2 diabetes mellitus with diabetic chronic kidney disease; N18.3 Chronic kidney disease, stage 3 (moderate); B96.20 Unspecified Escherichia coli [E. coli] as the cause of diseases classified elsewhere; Z88.8 Allergy status to other drugs, medicaments and biological substances; I25.2 Old myocardial infarction; Z85.72 Personal history of non-Hodgkin lymphomas; Z95.1 Presence of aortocoronary bypass graft; Z79.4 Long term (current) use of insulin
CPT/HCPCS: 36415; 36416; 70450; 71045; 80162; 81001; 82040; 82247; 82310; 82374; 82435; 82550; 82565; 82947; 82948; 83605; 83880; 84075; 84132; 84155; 84295; 84450; 84460; 84484; 84520; 85025; 87077; 87088; 87186; 93005; 94640; 94667; 96372; 96374; 96375; 97162; 97166; 99285; A4353; J0456; J0696; J3490; J7030; J7050

== ENCOUNTER → 2019-01-27 | Outpatient (CLI) | payer MEDICARE, OTHER ==
[~2019-01-27] MED LIST changes: +AMLO-127 PO; +CEF300 PO; +DOXY-179 PO; +LACT PO; +NITR50CA39 PO; +NPH,100V2 SUBQ
[2019-01-28 07:58] VITALS: BMI 27.3
== END ==
LOC: AMB 15:07
PROVIDERS: ATTEND Nurse Practitioner
DX: J81.1 Chronic pulmonary edema (principal); R09.02 Hypoxemia; W07.XXXA Fall from chair, initial encounter
CPT/HCPCS: A0425; A0427

== ENCOUNTER 2019-01-31 13:00 | Inpatient (IN) | payer MEDICARE, OTHER ==
[2019-01-28 07:58] VITALS: Ht 170.2 cm; Wt 68.7 kg
[~2019-01-31] VITALS: Ht 170.2 cm; Wt 68.7 kg
[~2019-01-31 13:00] MED LIST changes: +CEF300 PO; +DOXY-179 PO; +LACT PO; +NITR50CA39 PO
[2019-01-31 13:10] VITALS: BP 150/73
[2019-01-31] MEDS ORDERED: INSULIN HUM LISPRO 100 UN/ML 3 ML VIAL SUBQ PRN (13:20)
[2019-01-31] MEDS ORDERED: INSULIN HUM ISO(NPH) 100 UN/ML 3 ML VIAL SUBQ SCH (13:20)
[2019-01-31] MEDS ORDERED: DOXYCYCLINE HYCL 100 MG TAB PO SCH (13:20)
[2019-01-31] MEDS ORDERED: CEFDINIR 300 MG CAP PO SCH (13:20)
--- NOTE | 2019-01-31 13:47 | Consultant Pharmacy Review ---
Telecommunications Line Mechanic Review Medication Review Do All Mecications have a Diag: Yes Beers Criteria Medication 2014 Sliding Scale Insulin: Slidin Scale Insulin Pneumococcal Vaccine HX Pneumo Vac (Mqlluzx17): Yes (2015) HX Pneumo Vac (Pneumovax): Yes (2018) Comments Regarding the Review Digoxin / AtorvaSTATin Risk Rating C: Monitor therapy Summary AtorvaSTATin may increase the serum concentration of Digoxin. Severity Moderate Reliability Rating Fair Patient Management Monitor closely for signs and symptoms of digoxin toxicity when adding atorvastatin (particularly at higher doses) to patients receiving digoxin. Discussion The addition of atorvastatin 80mg resulted in an average 20% increase in digoxin Cmax and an average 15% increase in digoxin AUC (both vs. baseline) in a group of 24 healthy volunteers.1 A similar study adding atorvastatin 10mg found no significant change in digoxin pharmacokinetics. The mechanism of this possible interaction is unclear, but atorvastatin mediated inhibition of digoxin transport by the p-glycoprotein efflux transporter (particularly in the intestine, leading to relatively greater digoxin absorption) has been implicated as the most likely mechanism. In vitro data showing that atorvastatin is capable of inhibiting p-glycoprotein (at concentrations close to those achievable at high doses) and that atorvastatin can inhibit digoxin efflux in a cell culture experiment both support this purported mechanism.1,2 Footnotes 1. Eligio RA, Roro RH, Paul BH, et al, Atorvastatin Coadministration May Increase Digoxin Concentrations by Inhibition of Intestinal N-Kwikpvvffcld-Lpfueiiu Secretion, J Clin Pharmacol, 2000, 40:91-8. [PubMed [id number]] 2. Samm T, Jefe H, Diana C, et al, Effects of Acid and Lactone Forms of Eight Hmg-Coa Reductase Inhibitors on Cyp-Mediated Metabolism and Mdr1-Mediated Transport, Pharm Res, 2006, 23:506-12. [PubMed [id number]] YARELI MATTHEW Jan 31, 2019 13:47
--- NOTE | 2019-01-31 15:50 | PT ECF NOTE ---
Type of Note: Initial Note Primary Medical Diagnosis: Weakness Physical Therapy Evaluation Date: 01/31/2019 SUBJECTIVE: Prior Hospitalization: 01/27/2019 -01/31/2019 for pneumonia, See EMR for other admissions Prior Level of Function: Ambulating with RW Prior Living Status: Single level house, Alone, Son comes over once a week to assist with any needs Community Services: Home health care, Meals on Wheels Home Accessibility: One step into home Equipment Owned: Front wheeled walker Medical Complications/Past Medical History: See EMR OBJECTIVE: Strength: Right Lower Extremity: DF: 5/5 Knee flexion: 4+/5 Knee extension: 5/5 Hip flexion: 3+/5 Left Lower Extremity: DF: 5/5 Knee flexion: 4/5 Knee extension: 5/5 Hip flexion: 3+/5 Bed Mobility: SBA Assistive device: Transfers: SBA Assistive Device: Front wheeled walker Gait: CGAx 70 ft. Assistive device: Front wheeled walker Stairs: Not assessed Assistive device: 10 meter walk test (0.6m/second cannot function independently): 0.3 m/second ASSESSMENT: Pt has diminished endurance, requiring a seated resting break to accomplish 70 ft of ambulation. Gait speed was measured at 0.3 m/second, indicating an inability to function independently. Pt was lacking hip strength, with a 3+/5 flexion MMT. Pt only required SBA for transfers and bed mobility. Pt would benefit from further skilled PT care to improve strength and endurance to ensure safe ambulation and reduce fall risk. Continue to recommend 24 hour care at discharge. Problem List/Current Limitations: Decreased activity lo, Decreased strength, Decreased balance, Generalized weakness Short Term Goals: 1. Independent with bed mobility 2. Stand by assistance for transfers with RW 3. Stand by assistance for ambulation of 150 feet with RW 4. Able to Ascend/Descend 1 stair with CGA 5. Improve gait speed to >0.6 m/second Director Of Channel Marketing Goals: Pt to d/c to safest environment with appropriate support in place. Patient Goals: Unclear Rehabilitation Prognosis: Good Barriers for Discharge: Lives alone and has a history of frequent falls, has previously failed with d/c home independently. PLAN: The patient will benefit from skilled physical therapy services 5 times per week for 2 weeks including: Therapeutic Exercise, Therapeutic Activities, Transfer Training, Gait Training, Stair Training, ADL's, Safety Training, Neuromuscular Re-educ., Pt/Caregiver Training, Bed Mobility Thank you for this referral. If you have any questions, concerns, or comments about this report or plan, please contact me at . Augustin Doll, SPT Eli Dahl PT, DPT MTDD
--- NOTE | 2019-01-31 16:30 | OT ECF NOTE ---
Type of Note: Initial Note Primary Medical Diagnosis: Generalized weakness s/p UTI/Pneumonia Occupational Therapy Evaluation Date: 01/31/19 SUBJECTIVE: Prior Hospitalization: [facility] 01/27/19-01/31/19. Recurrent hospital admissions (please refer to EMR) Prior Level of Function: Modified Independent with toileting and LB dressing. Assist for bathing and all IADLs. Ambulating with RW. Frequent falls, reporting 6 falls within the last month. Pt reports she "slides off surfaces" and calls EMS for assist up. 3L Baseline O2 12/03. Prior Living Status: Apartment Alone Assist by family Community Services: Home health care (assists with medication management) Meals on Wheels No known needs Home Accessibility: One step into home All needs on one level Tub/shower combination Equipment Owned: Front wheeled walker Toilet riser Tub/shower chair Medical Complications/Past Medical History: Please refer to EMR Psychosocial Support: Son who resides in [facility], Visits every weekend to assist with IADLs and bathing. Pain Scale (0-10): None reported at time of evaluation OBJECTIVE: Strength: MMT: Right Left Shoulder Flexion WFL WFL Elbow Flexion WFL WFL Wrist Extension WFL WFL Wind Turbine Design Engineer WFL WFL (5= normal, 4= good, 3= fair, 2= poor, 1= trace) ROM: Both upper extremities, WFL Sensation: No paraesthesia reported Functional Transfer: Assistive Device: Front wheeled walker, Gait belt Transfer Ability: CGA ADL: Upper body dressing: Assistive device: Upper body dressing ability: N/T Lower body dressing: Assistive device: Lower body dressing ability: CGA Toileting: Assistive device: Toileting ability: SBA/CGA Grooming/hygiene: Assistive device: Grooming ability: N/T Bathing: Assistive device: Bathing ability: N/T Standardized Assessment: Amado Index of Activities of Daily Livin20 upon admission (01/31/19). ASSESSMENT: Elena presents to [facility] requiring supervision for ADLs and assist for IADLs. She has inconsistent functional independence, frequent falls at home, and frequent hospital readmissions. It is recommended that she discharge to a setting with 24/7 care. She will benefit from skilled OT services to improve activity tolerance and ensure appropriate disposition for discharge to a supervised setting. Problem List/Current Limitations: Decreased activity tolerance Decreased vision Decreased initiation Lack of motivation Short Term Goals: 1) Pt will tolerate ambulation on various surfaces community distances in order to safely engage in IADLs (ambulating to mailbox). 2) Pt will be SBA shower task seated. 3) Pt will be SBA light meal prep task. 4) Pt will be educated on appropriate fall prevention strategies. 5) Pt will be Independent UB HEP. 6) Pt Amado Index of ADLs score will improve by two points. Cleaning Specialist Goals: Discharge to least restrictive environment Patient Goals: "Return home yesterday" "Walk to mailbox" Rehabilitation Prognosis: Good Barriers to Discharge: Frequent falls, frequent readmissions, decreased initiation for ADLs/IADLs, Inconsistent functional independence PLAN: The patient will benefit from skilled occupational therapy services 5 times per week for 2 weeks including: Ther ex ADL training Safety training Ther act IADL training Home assessment Transfer training Adaptive equip training Bed mobility Energy conservation Thank you for this referral. If you have any questions, concerns, or comments about this report or plan, please contact me at . Oma Solano MS, OTR/L Occupational Therapist NIRMAL
[2019-01-31] MEDS: LACTOBACILLUS ACIDOPHILUS TAB PO SCH (16:41)
--- NOTE | 2019-01-31 19:04 | Antimicrobial Stewardship ---
Antimicrobial Stewardship Comment Antimicrobial Stewardship Empiricly appropriate: Yes (Pneumonia) Significant PMH: Yes (Small Cell lymphoma, hypogammaglobulinemia, falls, rib f x) Support empiric regimen: Yes (Ceftriaxone + Doxycycline) Renal/Hepatic dosing: Yes Comment Scr 1.4->1.1 Determine cumulative duration: Started on 01/28/19 - Day 2 Determine standard duration: 7 Days Comment 73 yo F with a PMH of afib, pneumonia, falls/rib fractures, Small cell lymphoma, and hypogammaglobulinemia who presented to the ED with hypoxia and was found on the floor by home health, reported that she had slid out of her chair. Tmax afebrile WBC 12.5-->8 Neuts 77.9% -->71.3% Scr 1.4-->1.1 Chest xray showed RLL infiltrate Started on Ceftriaxone + Azithromycin in the ED, switched to Ceftriaxone + doxycycline for presumed pneumonia Last IVIG dose on 01/23/19 (IgG 253, IgM 18) Continue treatment for pneumonia with ceftriaxone + doxycycline x 7 days, switch to oral antibiotics tomorrow. Today is day 2 of therapy. Lisa Schroeder, PharmD, BCOP LISA SCHROEDER Jan 29, 2019 11:37 CHRISTOPHE GONG Jan 31, 2019 19:04
[2019-01-31] MEDS: MELATONIN 3 MG TAB PO SCH (20:28)
[2019-01-31] MEDS: GABAPENTIN 300 MG CAP PO SCH (20:28)
[2019-01-31] MEDS: DOXYCYCLINE HYCL 100 MG TAB PO SCH (20:28)
[2019-01-31] MEDS: guaiFENesin 600 MG TABCR PO SCH (20:28)
[2019-01-31] MEDS: NITROFURANTOIN MACROCRYSTALS 50 MG PO SCH (20:28)
[2019-01-31] MEDS: ACETAMINOPHEN 325 MG TAB PO PRN (20:28)
[2019-01-31] MEDS: CARVEDILOL 25 MG TABLET PO SCH (20:29)
[2019-01-31] MEDS: CEFDINIR 300 MG CAP PO SCH (20:29)
[2019-02-01 07:15] VITALS: BP 156/70
[2019-02-01] MEDS ORDERED: INSULIN HUM LISPRO 100 UN/ML 3 ML VIAL SUBQ PRN (08:40)
[2019-02-01] MEDS: ATORVASTATIN 10 MG TAB PO SCH (08:50)
[2019-02-01] MEDS: LACTOBACILLUS ACIDOPHILUS TAB PO SCH ×2 (08:50→17:19)
[2019-02-01] MEDS: CARVEDILOL 25 MG TABLET PO SCH ×2 (08:50→20:17)
[2019-02-01] MEDS: DOXYCYCLINE HYCL 100 MG TAB PO SCH ×2 (08:50→20:18)
[2019-02-01] MEDS: DIGOXIN 0.125 MG TAB PO SCH (08:51)
[2019-02-01] MEDS: CEFDINIR 300 MG CAP PO SCH ×2 (08:51→20:18)
[2019-02-01] MEDS: amLODIPine BESYL(*) 5 MG TAB PO SCH (08:51)
[2019-02-01] MEDS: guaiFENesin 600 MG TABCR PO SCH ×2 (08:51→20:18)
[2019-02-01] MEDS: GABAPENTIN 300 MG CAP PO SCH ×2 (08:51→20:18)
[2019-02-01] MEDS: RIVAROXABAN 10 MG TAB PO SCH (08:52)
--- NOTE | 2019-02-01 09:42 | Medical Nutrition Therapy ---
Nutrition Anthropometrics Weight (Pounds): 160 Weight (Calculated Kilograms): 72.575 Arnoldo Nutrition Score: Adequate Arnoldo Nutrition Risk Score: 15 Dietary Referral Nutrition Risk Factors: Special Diet Nutrition Risk Comment: Physical Findings Physical Appearance: nursing will obtain ht today 02/01/19 Skin Appearance Skin Appearance: Edema Edema Location Modifier: Both Edema Location: Foot Type of Edema: Degree of Edema: 1+ Gastrointestinal Symptoms GI Symtoms: Diarrhea, Change in Bowel Pattern Tube Present: Bowel Sounds: Recent Bowel Pattern: Diarrhea Stool Characteristics: Loose Nutritional Diagnosis Nutritional Risk Acuity 2: Chronic Renal Failure, Blood Glucose > 300mg/dl Nutritional Risk Acuity 4: Modified Diet Past Medical History: CAD, HTN, T2DM, CKD-3, non-Hodkins lymphoma, CHF, chronic edema, chronic UTI, hypercholesteremia, urinary incontinence, chronic renal disease, pulmonary nodule, GI bleed, anemia, ribs (multiple fractures), hypogammagloblinemia, lumbosacral spinal surgery, tonsillectomy, and cataract extraction and CABG, T2DM, chronic afib. Nutritional Acuity: 3-Mild Nutrition Diagnosis: Inconsistent Carb. Intake Nutrition Etiology: Physiological Causes Nutrition Problem/Etiology/Sym: Inconsistent carb intake as related to physiologic causes as evidenced by T2DM and whole blood glucose of over 300. Energy Requirement: 1812 (25kcal/kg. Pt does not have a ht at this time to assess energy needs. nursing will obtain ht .) Protein Requirement: 73 (1 g protein/kg. Slightly elevated due to illness and a ge.) Fluid Requirement: 1812 (1mL/kcal) Diet Type: Diabetic Nutrition Intervention: Cont diet as ordered, Encourage intake, Check glucose Nutrition Monitoring & Eval Nutrition Goals: Eat 50-100% Meal Nutrition Follow-Up: Fair Intake RD Patient Assessment Time: [address] Assessment Type: RD Assessment Patient Nutrition Acuity: 3-Mild Follow Up Date: Feb 04, 2019 Nutritional Comment: Pt admitted to [facility] from med/surg due to weakness. Recent fall and bacterial pneumonia. Hx of acute diastolic heart failure, hypercholesteremia, essential HTN, T2DM. CAD, CKD. and chronic a-fib. Pt currently on ADA diet with 50-100% intakes at meals and refusal of 1 snack. Pt has 1+ edema in both feet. Pt is taking insuling, a multivitamin, and rivaroxaban. No ht at this time, nursing will obtain ht on 02/01/49. Whole blood glucose on 01/31 was 136 and 311. On 02/01 whole blood glucose was 87. Monitor for adequate intake, and blood glucose levels. -CHEYANNE PERALTA Feb 01, 2019 09:42
[2019-02-01] MEDS: ACETAMINOPHEN 325 MG TAB PO PRN (11:36)
[2019-02-01 11:37] VITALS: BP 157/65
[2019-02-01] MEDS: MULTIVITAMINS TAB PO SCH (11:37)
[2019-02-01] MEDS: INSULIN HUMAN LISPRO SLIDING SCALE SUBQ PRN ×3 (12:20→20:17)
[2019-02-01] MEDS: ONDANSETRON 4 MG ODT TABDP SL PRN (14:44)
[2019-02-01 15:20] VITALS: BP 155/71
[2019-02-01] MEDS: INSULIN HUM ISO(NPH) 100 UN/ML 3 ML VIAL SUBQ SCH (17:20)
[2019-02-01] MEDS: MELATONIN 3 MG TAB PO SCH (20:17)
[2019-02-01] MEDS: NITROFURANTOIN MACROCRYSTALS 50 MG PO SCH (20:18)
[2019-02-02 07:31] VITALS: BP 152/78
[2019-02-02] MEDS: ACETAMINOPHEN 325 MG TAB PO PRN ×3 (07:44→20:32)
[2019-02-02] MEDS: ATORVASTATIN 10 MG TAB PO SCH (08:33)
[2019-02-02] MEDS: RIVAROXABAN 10 MG TAB PO SCH (08:33)
[2019-02-02] MEDS: guaiFENesin 600 MG TABCR PO SCH ×2 (08:34→20:31)
[2019-02-02] MEDS: GABAPENTIN 300 MG CAP PO SCH ×2 (08:34→20:31)
[2019-02-02] MEDS: LACTOBACILLUS ACIDOPHILUS TAB PO SCH ×2 (08:34→17:18)
[2019-02-02] MEDS: CARVEDILOL 25 MG TABLET PO SCH ×2 (08:34→20:31)
[2019-02-02] MEDS: DIGOXIN 0.125 MG TAB PO SCH (08:34)
[2019-02-02] MEDS: amLODIPine BESYL(*) 5 MG TAB PO SCH (08:35)
[2019-02-02] MEDS: INSULIN HUM ISO(NPH) 100 UN/ML 3 ML VIAL SUBQ SCH ×2 (08:35→17:18)
[2019-02-02] MEDS: CEFDINIR 300 MG CAP PO SCH ×2 (08:35→20:31)
[2019-02-02] MEDS: DOXYCYCLINE HYCL 100 MG TAB PO SCH ×2 (08:36→20:31)
[2019-02-02] MEDS: INSULIN HUMAN LISPRO SLIDING SCALE SUBQ PRN ×3 (12:13→20:32)
[2019-02-02] MEDS: MULTIVITAMINS TAB PO SCH (12:13)
[2019-02-02 16:20] VITALS: BP 178/68
[2019-02-02] MEDS: MELATONIN 3 MG TAB PO SCH (20:31)
[2019-02-02] MEDS: NITROFURANTOIN MACROCRYSTALS 50 MG PO SCH (20:31)
[2019-02-03 07:57] VITALS: BP 156/74
[2019-02-03] MEDS: amLODIPine BESYL(*) 5 MG TAB PO SCH (08:41)
[2019-02-03] MEDS: DOXYCYCLINE HYCL 100 MG TAB PO SCH ×2 (08:41→20:37)
[2019-02-03] MEDS: guaiFENesin 600 MG TABCR PO SCH ×2 (08:41→20:37)
[2019-02-03] MEDS: CARVEDILOL 25 MG TABLET PO SCH ×2 (08:41→20:37)
[2019-02-03] MEDS: CEFDINIR 300 MG CAP PO SCH ×2 (08:42→20:36)
[2019-02-03] MEDS: RIVAROXABAN 10 MG TAB PO SCH (08:42)
[2019-02-03] MEDS: LACTOBACILLUS ACIDOPHILUS TAB PO SCH ×2 (08:43→17:23)
[2019-02-03] MEDS: ATORVASTATIN 10 MG TAB PO SCH (08:43)
[2019-02-03] MEDS: DIGOXIN 0.125 MG TAB PO SCH (08:43)
[2019-02-03] MEDS: GABAPENTIN 300 MG CAP PO SCH ×2 (08:43→20:37)
[2019-02-03] MEDS: INSULIN HUM ISO(NPH) 100 UN/ML 3 ML VIAL SUBQ SCH ×2 (08:45→17:24)
--- NOTE | 2019-02-03 11:55 | Medical Nutrition Therapy ---
Nutrition Anthropometrics Height (Inches): 67.00 Height (Calculated Centimeters: 170.352552 Weight (Pounds): 162 Weight (Calculated Kilograms): 73.482 BMI: 25.4 Arnoldo Nutrition Score: Adequate Arnoldo Nutrition Risk Score: 15 Dietary Referral Nutrition Risk Factors: Special Diet Nutrition Risk Comment: Physical Findings Physical Appearance: BMI WNL Skin Appearance Skin Appearance: Edema Edema Location Modifier: Right Edema Location: Lower Extremity Type of Edema: Degree of Edema: 1+ Gastrointestinal Symptoms GI Symtoms: Nausea, Diarrhea, Change in Bowel Pattern Tube Present: Bowel Sounds: Recent Bowel Pattern: Diarrhea Stool Characteristics: Loose Nutrition/Food History Good Breakfast: Recieves Meals on Wheels Nutritional Diagnosis Nutritional Risk Acuity 2: Chronic Renal Failure, Blood Glucose > 300mg/dl Nutritional Risk Acuity 4: Modified Diet Past Medical History: CAD, HTN, T2DM, CKD-3, non-Hodkins lymphoma, CHF, chronic edema, chronic UTI, hypercholesteremia, urinary incontinence, chronic renal disease, pulmonary nodule, GI bleed, anemia, ribs (multiple fractures), hypogammagloblinemia, lumbosacral spinal surgery, tonsillectomy, and cataract extraction and CABG, T2DM, chronic afib. Nutritional Acuity: 3-Mild Nutrition Diagnosis: Inconsistent Carb. Intake Nutrition Etiology: Physiological Causes Nutrition Problem/Etiology/Sym: Inconsistent carb intake as related to physiologic causes as evidenced by T2DM and whole blood glucose of over 300. Energy Requirement: 1812 (25kcal/kg. Pt does not have a ht at this time to assess energy needs. nursing will obtain ht on .) Protein Requirement: 73 (1 g protein/kg. Slightly elevated due to illness and age.) Fluid Requirement: 1812 (1mL/kcal) Diet Type: Diabetic Nutrition Intervention: Cont diet as ordered, Encourage intake, Check glucose Nutrition Monitoring & Eval Nutrition Goals: Eat 75-100% Meal Nutritional Goals Comment: Weight appears to be stable. Most recent inpatient visit showed highest wt of 162 lbs. Nutrition Follow-Up: Good Intake Nutrition Monitoring: Monitor BG, Meal Intake, Weight RD Patient Assessment Time: [address] Assessment Type: RD Re-Assessment Patient Nutrition Acuity: 3-Mild Follow Up Date: Feb 04, 2019 Nutritional Comment: Pt admitted to [facility] from med/surg due to weakness. Recent fall and bacterial pneumonia. Hx of acute diastolic heart failure, hypercholesteremia, essential HTN, T2DM. CAD, CKD. and chronic a-fib. Pt currently on ADA diet with 50-100% intakes at meals and refusal of 1 snack. Pt has 1+ edema in both feet. Pt is taking insuling, a multivitamin, and rivaroxaban. No ht at this time, nursing will obtain ht on 02/01/49. Whole blood glucose on 01/31 was 136 and 311. On 02/01 whole blood glucose was 87. Monitor for adequate intake, and blood glucose levels. -AKG 02/03/19-Visited with pt this am. Pt reports nausea, RN was aware. Discussed some ways to combat nausea. Pt currently on diabetic diet eating 86% of small to regular meals. Blood glucose remains elevated 219-258 range yesterday. Had one low BG at 60. Wt remains stable. REYNOLD EWING Feb 03, 2019 09:51
[2019-02-03] MEDS: INSULIN HUMAN LISPRO SLIDING SCALE SUBQ PRN ×2 (12:38→20:37)
[2019-02-03] MEDS: MULTIVITAMINS TAB PO SCH (12:38)
--- NOTE | 2019-02-03 13:25 | ECF History & Physical ---
Transfer Summary (ECF/SWB) Problems: (1) Bacterial pneumonia Status: Acute Assessment & Plan: Her chest x-ray showed a new right lower lobe infiltrate and her WBC was elevated. She was started on empiric treatment with IV ceftriaxone and doxycycline. Her WBC count normalized. Her oxygen requirement did improve. She was transitioned to oral Omnicef and Doxycycline. She is still requiring 4L from her usual 3L baseline oxygen use. She did work with PT/OT during her stay. It was felt she would most likely need ongoing care either at home or in SNF. In the past, she has not done well at home even with home health care. Arrangements were made for transfer to [facility]. (2) UTI (urinary tract infection) Status: Acute Assessment & Plan: Due to E. coli. She was on the IV antibiotics for her pneumonia as noted above. Sensitivities showed the E. coli to be sensitive to ceftriaxone. She will complete her course of therapy with the Omnicef. She will resume her prophylactic nitrofurantoin as well. (3) CHRONIC ATRIAL FIBRILLATION Status: Chronic Assessment & Plan: She is on chronic treatment with digoxin and Xarelto. Her digoxin level was in therapeutic range. Her heart rate was controlled. (4) Essential hypertension Status: Chronic Assessment & Plan: She is on chronic treatment with amlodipine and carvedilol. (5) Type II diabetes mellitus Status: Chronic Assessment & Plan: She has been on chronic treatment with NPH. She was also covered with sliding scale level #2. (6) Acute renal failure Status: Acute Assessment & Plan: Mild. Most likely due to dehydration. She was admitted with creatinine of 1.4. It improved with gentle IV fluids to 1.1. Latest Vital Signs Vital Signs Date Time Temp Pulse Resp B/P (MAP) Pulse Ox O2 Delivery O2 Flow Rate FiO2 01/31/19 09:33 88 01/31/19 06:45 98.4 14 171/82 (111) 93 Nasal Cannula 4.0 Result Diagram: 01/30/1952301/30/19523 Diagnostics Item Value Date Time White Blood Count 12.5 k/uL H 01/27/19 1535 Hemoglobin 9.9 g/dL L 01/27/19 1535 Hematocrit 31.7 % L 01/27/19 1535 Platelet Count 215 K/uL 01/27/19 1535 Sodium Level 146 mmol/L H 01/27/19 1633 Potassium Level 4.7 mmol/L 01/27/19 1633 Chloride Level 105 mmol/L 01/27/19 1633 Carbon Dioxide Level 30 mmol/L 01/27/19 1633 Blood Urea Nitrogen 20 mg/dl H 01/27/19 1633 Creatinine 1.40 mg/dl H 01/27/19 1633 Glomerular Filtration Rate Calc 36.8 01/27/19 1633 Random Glucose 203 mg/dl H 01/27/19 1633 Lactate 0.8 mmol/L 01/27/19 1633 Calcium Level 10.1 mg/dl 01/27/19 1633 Total Bilirubin 0.7 mg/dl 01/27/19 1633 Aspartate Amino Transf (AST/SGOT) 25 U/L 01/27/19 1633 Alanine Aminotransferase (ALT/SGPT) 62 U/L H 01/27/19 1633 Alkaline Phosphatase 104 U/L 01/27/19 1633 Total Creatine Kinase 79 U/L 01/27/19 1633 Troponin I 0.017 ng/ml 01/27/19 1633 Total Protein 6.7 g/dl 01/27/19 1633 Albumin 3.7 g/dl 01/27/19 1633 B-Type Natriuretic Peptide 633 pg/ml H 01/27/19 0000 Digoxin Level 1.2 ng/ml 01/28/19 0806 Urine Mucus Few /HPF 01/27/19 1733 Urine Yeast (Budding) Many /HPF H 01/27/19 1733 Urine Bacteria Few /HPF 01/27/19 1733 Urine Squamous Epithelial Cells Many /LPF H 01/27/19 1733 Urine WBC Clumps Mod /HPF 01/27/19 1733 Urine WBC 782 /HPF 01/27/19 1733 Urine RBC 25 /HPF 01/27/19 1733 Urine Leukocyte Esterase Large H 01/27/19 1733 Urine Urobilinogen Negative mg/dL 01/27/19 1733 Urine Bilirubin Negative 01/27/19 1733 Urine Nitrite Negative 01/27/19 1733 Urine Blood Small 01/27/19 1733 Urine Ketones Negative mg/dL 01/27/19 1733 Urine Glucose (UA) 150 mg/dL H 01/27/19 1733 Urine Protein 100 mg/dL 01/27/19 1733 Urine Specific Leslie 1.017 01/27/19 1733 Urine pH 6.0 pH 01/27/19 1733 Urine Clarity Cloudy 01/27/19 1733 Urine Color Yellow 01/27/19 1733 PATIENT NAME: Elena Saunders : 1945 MR: [id number] V: [id number] EXAM DATE: ORDERING PHYSICIAN: DAVID MAYERS TECHNOLOGIST: [place] [facility] [place] Saunders : 1945 Visit/Account:[id number] Date of Sevice: 01/27/2019 CHEST SINGLE AP COMPARISONS: 2 view chest dated September 07, 2018 ADDITIONAL PERTINENT HISTORY: Fall FINDINGS: Cardiomediastinal silhouette: Patient status post median sternotomy. Otherwise negative Pulmonary vasculature: Atherosclerotic disease of the thoracic aortic arch. Lung delgado: Patchy areas of opacity involving the right lung base which could represent either a region of atelectatic change versus infiltrate. Likely atelectatic change at the left lung base. Pleural spaces: Small bilateral pleural effusions. Osseous structures: Negative. Surrounding soft tissues: Negative. IMPRESSION: 1. Continued presence of bilateral pleural effusions slightly decreased on the left from previous exam. 2. Patchy regions of atelectatic change versus infiltrate at the right lung base. 3. Continued mild atelectatic change at the left lung base. Report Dictated By: Shiva Gama MD at 01/27/2019 5:38 PM Report E-Signed By: Shiva Gama MD at 01/27/2019 5:39 PM WSN:[id number] PATIENT NAME: Elena Saunders : 1945 MR: [id number] V: [id number] EXAM DATE: ORDERING PHYSICIAN: DAVID MAYERS TECHNOLOGIST: [place] [facility] [place] [place] Saunders : 1945 Visit/Account:[id number] Date of Sevice: 01/27/[address] scan without contrast COMPARISONS: CT of the head without contrast dated November 29, 2018 ADDITIONAL PERTINENT HISTORY: Fall TECHNIQUE: Multiple axial images were obtained from the skull base to the vertex without IV contrast. One of the following dose optimization techniques was utilized in the performance of this exam: Automated exposure control; adjustment of the mA and/or kV according to the patient's size; or use of an iterative reconstruction technique. Specific details can be referenced in the facility's radiology CT exam operational policy. FINDINGS: Midline shift: Negative Ventricles: Mild enlargement of the lateral and third ventricles stable from previous exam. Brain parenchyma: Patchy hypoattenuation within the periventricular and subcortical white matter, nonspecific but likely representing small vessel ischemic change on a chronic basis. No intraparenchymal hemorrhage. Extra-axial spaces: Moderate cerebral atrophy. Intracranial vasculature: Cavernous internal carotid artery calcifications. Otherwise negative Osseous structures: Negative Paranasal sinuses and mastoid air cells: Air-fluid level involving both maxillary sinuses. Otherwise negative Surrounding soft tissues and orbits: Negative IMPRESSION: 1. Age related changes as described above. 2. No evidence of acute intracranial pathology. Report Dictated By: Shiva Gama MD at 01/27/2019 5:35 PM Report E-Signed By: Shiva Gama MD at 01/27/2019 5:37 PM WSN:[id number] Condition: Improved Disposition: SNF/NH ([facility]) Inpatient Medications Please see medication reconciliation. Treatment Goals and Plan Patient requires care home and/or skilled rehabilitation with the goal to increase independence with ADL's, functional strength and mobility. Continue and adjust medication regimen. RAMIN THURMAN MD Jan 31, 2019 11:57 <Electronically signed by RAMIN THURMAN MD> D/ [id number] VIOLETTA CC: NIRMAL
[2019-02-03 15:40] VITALS: BP 155/81
[2019-02-03] MEDS: ACETAMINOPHEN 325 MG TAB PO PRN (17:23)
[2019-02-03] MEDS: MELATONIN 3 MG TAB PO SCH (20:36)
[2019-02-03] MEDS: NITROFURANTOIN MACROCRYSTALS 50 MG PO SCH (20:37)
[2019-02-04 07:50] VITALS: BP 164/72
[2019-02-04] MEDS: GABAPENTIN 300 MG CAP PO SCH ×2 (08:42→20:29)
[2019-02-04] MEDS: DIGOXIN 0.125 MG TAB PO SCH (08:43)
[2019-02-04] MEDS: CARVEDILOL 25 MG TABLET PO SCH ×2 (08:43→20:28)
[2019-02-04] MEDS: RIVAROXABAN 10 MG TAB PO SCH (08:43)
[2019-02-04] MEDS: DOXYCYCLINE HYCL 100 MG TAB PO SCH ×2 (08:43→20:29)
[2019-02-04] MEDS: LACTOBACILLUS ACIDOPHILUS TAB PO SCH ×2 (08:43→16:54)
[2019-02-04] MEDS: ATORVASTATIN 10 MG TAB PO SCH (08:43)
[2019-02-04] MEDS: amLODIPine BESYL(*) 5 MG TAB PO SCH (08:43)
[2019-02-04] MEDS: guaiFENesin 600 MG TABCR PO SCH ×2 (08:43→20:28)
[2019-02-04] MEDS: CEFDINIR 300 MG CAP PO SCH ×2 (08:43→20:28)
[2019-02-04] MEDS: INSULIN HUM ISO(NPH) 100 UN/ML 3 ML VIAL SUBQ SCH ×2 (08:44→16:55)
[2019-02-04] MEDS: INSULIN HUMAN LISPRO SLIDING SCALE SUBQ PRN ×3 (12:12→20:28)
[2019-02-04] MEDS: MULTIVITAMINS TAB PO SCH (12:12)
[2019-02-04 19:34] VITALS: BP 158/80
[2019-02-04] MEDS: ACETAMINOPHEN 325 MG TAB PO PRN (20:28)
[2019-02-04] MEDS: NITROFURANTOIN MACROCRYSTALS 50 MG PO SCH (20:28)
[2019-02-04] MEDS: MELATONIN 3 MG TAB PO SCH (20:29)
[2019-02-05 06:08] LABS: PLATELET COUNT, AUTOMATED 146 K/uL (150-450)
[2019-02-05 08:00] VITALS: BP 101/64
[2019-02-05] MEDS: LACTOBACILLUS ACIDOPHILUS TAB PO SCH ×2 (08:49→16:39)
[2019-02-05] MEDS: guaiFENesin 600 MG TABCR PO SCH ×2 (08:49→20:30)
[2019-02-05] MEDS: ATORVASTATIN 10 MG TAB PO SCH (08:50)
[2019-02-05] MEDS: CARVEDILOL 25 MG TABLET PO SCH ×2 (08:50→20:30)
[2019-02-05] MEDS: GABAPENTIN 300 MG CAP PO SCH ×2 (08:50→20:30)
[2019-02-05] MEDS: DIGOXIN 0.125 MG TAB PO SCH (08:50)
[2019-02-05] MEDS: amLODIPine BESYL(*) 5 MG TAB PO SCH (08:50)
[2019-02-05] MEDS: INSULIN HUM ISO(NPH) 100 UN/ML 3 ML VIAL SUBQ SCH ×2 (08:51→16:39)
--- NOTE | 2019-02-05 09:27 | Miscellaneous Provider Note ---
Miscellaneous Provider Note Note The patient had some blood tinged toilet water after a BM this morning. Her Hgb dropped from about 9.2 to 8.2. BP/P wnl. Xarelto was held. CBC again tomorrow. Will also check iron studies, B12 and Folate, reticulocyte. UMM APONTE MD Feb 05, 2019 09:27
[2019-02-05] MEDS ORDERED: diphenhydrAMINE 25 MG CAP PO ONE (10:50)
[2019-02-05] MEDS ORDERED: ACETAMINOPHEN 500 MG TAB PO ONE (10:50)
--- NOTE | 2019-02-05 11:05 | Hospitalist Progress Note ---
Subjective Progress Notes Subjective The patient states she is feeling tired and is short of breath with exertion. She has been queazy as well. Nursing reported blood in the toilet after the patient urinated and had a BM. She has a history of hematuria and GI bleed. Source of the blood in the toilet was not clear. Patient Complains of: Neurological: Weakness Respiratory: Shortness of Breath Gastrointestinal: Nausea, Other (Queazy. ); No Vomiting Physical Exam Vital Signs Date Time Temp Pulse Resp B/P (MAP) Pulse Ox O2 Delivery O2 Flow Rate FiO2 02/05/19 09:00 93 Nasal Cannula 3.0 02/05/19 08:50 74 02/05/19 08:00 97.8 16 101/64 (76) Intake and Output 02/05/19 07:01 Intake Total 880 ml Balance 880 ml Intake Oral 880 ml # Voids 6 # Bowel Movements 2 General Appearance: Alert, Awake, No Acute Distress Neuro: No Gross deficits Cardiovascular: Other (Irregularly irregular with AL.) Respiratory: Other (Markedly decreased BS throughout without rales, rhonchi or wheezing.) Extremities: Warm, Edema (R leg 2+. L leg 1+.) Integumentary: Generalized Fragile Skin Psych: Appropriate Mood & Affect Result Diagram: 02/05/1954602/05/19546 Assessment and Plan Problems: (1) Blood loss Status: Acute Assessment & Plan: The patient did drop her Hgb from 9.2 to 8.2. She is symptomatic. She does have a history of GI bleeding as well as hematuria. UA and hemoccult ordered. Will start Protonix. Will type and cross for 2u PRBCs. Will transfuse one when ready. Repeat H&H later today. Blood pressure has dropped a bit but she is not tachycardic. Monitor closely. (2) Bacterial pneumonia Status: Acute Assessment & Plan: Her chest x-ray showed a new right lower lobe infiltrate and her WBC was elevated. She was started on empiric treatment with IV ceftriaxone and doxycycline. Her WBC count normalized. Her oxygen requirement did improve. She was transitioned to oral Omnicef and Doxycycline. She is still requiring supplemental O2. She did work with PT/OT during her stay on the medical floor. It was felt she would most likely need ongoing care either at home or in SNF. In the past, she has not done well at home even with home health care. Arrangements were made for transfer to [facility] for ongoing rehabilitation. (3) UTI (urinary tract infection) Status: Acute Assessment & Plan: Due to E. coli. She was on the IV antibiotics for her pneumonia as noted above. Sensitivities showed the E. coli to be sensitive to ceftriaxone. She will complete her course of therapy with the Omnicef. She will resume her prophylactic nitrofurantoin as well. (4) CHRONIC ATRIAL FIBRILLATION Status: Chronic Assessment & Plan: She is on chronic treatment with digoxin and Xarelto. Her digoxin level was in therapeutic range. Her heart rate was controlled. She did drop her Hgb (see above) so her Xarelto has been stopped [facility]. (5) Essential hypertension Status: Chronic Assessment & Plan: She is on chronic treatment with amlodipine and carvedilol. (6) Type II diabetes mellitus Status: Chronic Assessment & Plan: She has been on chronic treatment with NPH. She was also covered with sliding scale level #2. (7) Acute renal failure Status: Acute Assessment & Plan: Mild. Most likely due to dehydration. She was admitted with creatinine of 1.4. It improved with gentle IV fluids to 1.1 while on the medical floor. It is now 0.9 on ECF. (8) Follicular non-Hodgkin's lymphoma Status: Chronic Assessment & Plan: Low grade non-Hodgkin lymphoma/small lymphocytic leukemia: Per the most recent note from the [facility], the plan is for continued active surveillance. She has not required treatment for this. (9) CAD (coronary artery disease) Status: Chronic Assessment & Plan: The patient's last echo showed an EF of 35-40% with global hypokinesis of the L ventricle. Continue carvedilol. 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 The [facility] increased the dose of her IVIG. Her most recent level was in the low 500s with replacement. The plan was to continue this indefinitely. Unfortunately, patient did have a fall and sustained some fractures and was in and out of the hospital and rehabilitation, then followed by alf. She had been off IVIG since about mid to late August 2018. [facility] Time Spent on Plan of Care: < 30 min YARELI THURMAN MD Feb 05, 2019 11:05
[2019-02-05] MEDS: MULTIVITAMINS TAB PO SCH (12:54)
[2019-02-05] MEDS: INSULIN HUMAN LISPRO SLIDING SCALE SUBQ PRN ×3 (12:57→20:31)
[2019-02-05] MEDS: PANTOPRAZOLE SOD 40 MG IV VIAL IVP SCH ×2 (13:50→20:30)
[2019-02-05] MEDS ORDERED: NS(*) 0.9% 500 ML BAG 500 ML IV PRN (14:20)
[2019-02-05 14:30] VITALS: BP 156/66
[2019-02-05 14:51] VITALS: BP 154/68
[2019-02-05 16:58] VITALS: BP 159/74
[2019-02-05] MEDS: NITROFURANTOIN MACROCRYSTALS 50 MG PO SCH (20:30)
[2019-02-05] MEDS: MELATONIN 3 MG TAB PO SCH (20:30)
[2019-02-05] MEDS: ACETAMINOPHEN 325 MG TAB PO PRN (20:30)
--- NOTE | 2019-02-05 21:09 | Miscellaneous Provider Note ---
Miscellaneous Provider Note Note She tolerated the blood transfusion. She reports that she still feels weak. Vital Signs Label Value Date Time Patient Temperature 98.5 degrees F 02/05/19 1658 Temperature Source Oral 02/05/19 1658 Pulse 70 02/05/19 1658 Blood Pressure Assessment 159/74 02/05/19 1658 Item Value Date Time Urine Leukocyte Esterase Small H 02/05/19 1355 Urine RBC 4325 /HPF 02/05/19 1355 Urine WBC None /HPF 02/05/19 1355 Urine Squamous Epithelial Cells Many /LPF H 02/05/19 1355 Urine Blood Large 02/05/19 1355 Urine Glucose (UA) 150 mg/dL H 02/05/19 1355 Urine Protein 100 mg/dL 02/05/19 1355 Urine Bacteria Negative /HPF 02/05/19 1355 Hemoglobin 8.2 g/dL *L 02/05/19 0547 Hemoglobin 10.5 g/dL L 02/05/19 1915 No further BM. She will get occult blood testing with the next BM. She had a cystoscopy for hematuria in June of [address] Reid. He reported the cause as acute/chronic irritation. Dr. Jara has been recently following her. He would like to do another cystoscopy at some point. He had started her on chronic Macrodantin 50mg a day in November (which she is still on). It is unclear if/when she has had endoscopy. Certainly Low grade non-Hodgkin lymphoma, small lymphocytic lymphoma could be contributing. Continue to hold Xarelto. UMM APONTE MD Feb 05, 2019 21:09
[2019-02-06 07:40] VITALS: BP 145/69
[2019-02-06] MEDS: DIGOXIN 0.125 MG TAB PO SCH (08:53)
[2019-02-06] MEDS: amLODIPine BESYL(*) 5 MG TAB PO SCH (08:53)
[2019-02-06] MEDS: LACTOBACILLUS ACIDOPHILUS TAB PO SCH ×2 (08:53→17:27)
[2019-02-06] MEDS: guaiFENesin 600 MG TABCR PO SCH ×2 (08:54→20:24)
[2019-02-06] MEDS: ACETAMINOPHEN 325 MG TAB PO PRN (08:54)
[2019-02-06] MEDS: CARVEDILOL 25 MG TABLET PO SCH ×2 (08:54→20:24)
[2019-02-06] MEDS: ATORVASTATIN 10 MG TAB PO SCH (08:54)
[2019-02-06] MEDS: GABAPENTIN 300 MG CAP PO SCH ×2 (08:54→20:23)
[2019-02-06] MEDS: PANTOPRAZOLE SOD 40 MG IV VIAL IVP SCH (08:55)
[2019-02-06] MEDS: INSULIN HUM ISO(NPH) 100 UN/ML 3 ML VIAL SUBQ SCH ×2 (08:55→17:30)
[2019-02-06 09:32] LABS: PLATELET COUNT, AUTOMATED 148 K/uL (150-450)
[2019-02-06] MEDS: MULTIVITAMINS TAB PO SCH (12:24)
[2019-02-06] MEDS: INSULIN HUMAN LISPRO SLIDING SCALE SUBQ PRN ×3 (12:25→20:29)
[2019-02-06 17:02] VITALS: BP 163/76
[2019-02-06] MEDS: NITROFURANTOIN MACROCRYSTALS 50 MG PO SCH (20:24)
[2019-02-06] MEDS: MELATONIN 3 MG TAB PO SCH (20:24)
[2019-02-06] MEDS: PANTOPRAZOLE SOD 40 MG TABEC PO SCH (20:24)
[2019-02-07 07:50] VITALS: BP 159/64
[2019-02-07] MEDS: ATORVASTATIN 10 MG TAB PO SCH (08:43)
[2019-02-07] MEDS: amLODIPine BESYL(*) 5 MG TAB PO SCH (08:44)
[2019-02-07] MEDS: CARVEDILOL 25 MG TABLET PO SCH ×2 (08:44→21:29)
[2019-02-07] MEDS: LACTOBACILLUS ACIDOPHILUS TAB PO SCH ×2 (08:44→17:28)
[2019-02-07] MEDS: PANTOPRAZOLE SOD 40 MG TABEC PO SCH ×2 (08:44→21:28)
[2019-02-07] MEDS: GABAPENTIN 300 MG CAP PO SCH ×2 (08:44→21:28)
[2019-02-07] MEDS: guaiFENesin 600 MG TABCR PO SCH ×2 (08:44→21:29)
[2019-02-07] MEDS: DIGOXIN 0.125 MG TAB PO SCH (08:44)
[2019-02-07] MEDS: INSULIN HUMAN LISPRO SLIDING SCALE SUBQ PRN ×4 (08:45→21:29)
[2019-02-07] MEDS: ACETAMINOPHEN 325 MG TAB PO PRN ×2 (08:45→21:29)
[2019-02-07] MEDS: INSULIN HUM ISO(NPH) 100 UN/ML 3 ML VIAL SUBQ SCH ×2 (08:46→17:29)
[2019-02-07] MEDS: MULTIVITAMINS TAB PO SCH (12:23)
[2019-02-07 15:30] VITALS: BP 153/68
[2019-02-07] MEDS: NITROFURANTOIN MACROCRYSTALS 50 MG PO SCH (21:29)
[2019-02-07] MEDS: MELATONIN 3 MG TAB PO SCH (21:29)
[2019-02-08 08:04] VITALS: BP 145/80
[2019-02-08] MEDS: GABAPENTIN 300 MG CAP PO SCH ×2 (08:36→20:42)
[2019-02-08] MEDS: amLODIPine BESYL(*) 5 MG TAB PO SCH (08:37)
[2019-02-08] MEDS: ATORVASTATIN 10 MG TAB PO SCH (08:37)
[2019-02-08] MEDS: guaiFENesin 600 MG TABCR PO SCH ×2 (08:37→20:42)
[2019-02-08] MEDS: LACTOBACILLUS ACIDOPHILUS TAB PO SCH ×2 (08:37→17:01)
[2019-02-08] MEDS: CARVEDILOL 25 MG TABLET PO SCH ×2 (08:37→20:43)
[2019-02-08] MEDS: PANTOPRAZOLE SOD 40 MG TABEC PO SCH ×2 (08:38→20:43)
[2019-02-08] MEDS: INSULIN HUM ISO(NPH) 100 UN/ML 3 ML VIAL SUBQ SCH ×2 (08:40→17:07)
[2019-02-08] MEDS: DIGOXIN 0.125 MG TAB PO SCH (08:40)
[2019-02-08] MEDS: INSULIN HUMAN LISPRO SLIDING SCALE SUBQ PRN ×4 (08:41→20:44)
[2019-02-08] MEDS: ACETAMINOPHEN 325 MG TAB PO PRN ×2 (08:48→20:42)
[2019-02-08] MEDS: MULTIVITAMINS TAB PO SCH (12:17)
[2019-02-08 15:36] VITALS: BP 158/71
[2019-02-08] MEDS: MELATONIN 3 MG TAB PO SCH (20:42)
[2019-02-08] MEDS: NITROFURANTOIN MACROCRYSTALS 50 MG PO SCH (20:43)
[2019-02-09 07:38] VITALS: BP 161/70
[2019-02-09] MEDS: ACETAMINOPHEN 325 MG TAB PO PRN ×2 (08:06→20:29)
[2019-02-09] MEDS: LACTOBACILLUS ACIDOPHILUS TAB PO SCH ×2 (09:00→17:09)
[2019-02-09] MEDS: INSULIN HUM ISO(NPH) 100 UN/ML 3 ML VIAL SUBQ SCH ×2 (09:01→17:09)
[2019-02-09] MEDS: guaiFENesin 600 MG TABCR PO SCH ×2 (09:07→20:29)
[2019-02-09] MEDS: DIGOXIN 0.125 MG TAB PO SCH (09:07)
[2019-02-09] MEDS: CARVEDILOL 25 MG TABLET PO SCH ×2 (09:07→20:28)
[2019-02-09] MEDS: GABAPENTIN 300 MG CAP PO SCH ×2 (09:07→20:29)
[2019-02-09] MEDS: amLODIPine BESYL(*) 5 MG TAB PO SCH (09:07)
[2019-02-09] MEDS: PANTOPRAZOLE SOD 40 MG TABEC PO SCH ×2 (09:07→20:28)
[2019-02-09] MEDS: ATORVASTATIN 10 MG TAB PO SCH (09:08)
[2019-02-09] MEDS: MULTIVITAMINS TAB PO SCH (12:26)
[2019-02-09] MEDS: INSULIN HUMAN LISPRO SLIDING SCALE SUBQ PRN ×3 (12:26→20:30)
[2019-02-09 15:10] VITALS: BP 153/76
[2019-02-09] MEDS: NITROFURANTOIN MACROCRYSTALS 50 MG PO SCH (20:28)
[2019-02-09] MEDS: MELATONIN 3 MG TAB PO SCH (20:28)
[2019-02-10 08:15] VITALS: BP 154/66
[2019-02-10] MEDS: CARVEDILOL 25 MG TABLET PO SCH ×2 (08:54→20:46)
[2019-02-10] MEDS: amLODIPine BESYL(*) 5 MG TAB PO SCH (08:54)
[2019-02-10] MEDS: guaiFENesin 600 MG TABCR PO SCH ×2 (08:55→20:46)
[2019-02-10] MEDS: DIGOXIN 0.125 MG TAB PO SCH (08:55)
[2019-02-10] MEDS: LACTOBACILLUS ACIDOPHILUS TAB PO SCH ×2 (08:55→16:39)
[2019-02-10] MEDS: ATORVASTATIN 10 MG TAB PO SCH (08:55)
[2019-02-10] MEDS: PANTOPRAZOLE SOD 40 MG TABEC PO SCH ×2 (08:55→20:47)
[2019-02-10] MEDS: GABAPENTIN 300 MG CAP PO SCH ×2 (08:55→20:47)
[2019-02-10] MEDS: INSULIN HUM ISO(NPH) 100 UN/ML 3 ML VIAL SUBQ SCH ×2 (08:56→16:40)
[2019-02-10] MEDS: ACETAMINOPHEN 325 MG TAB PO PRN ×2 (08:56→20:46)
[2019-02-10] MEDS: INSULIN HUMAN LISPRO SLIDING SCALE SUBQ PRN ×2 (11:35→20:46)
[2019-02-10] MEDS: MULTIVITAMINS TAB PO SCH (11:35)
[2019-02-10 15:26] VITALS: BP 157/81
--- NOTE | 2019-02-10 16:37 | Medical Nutrition Therapy ---
Nutrition Anthropometrics Height (Inches): 67.00 Height (Calculated Centimeters: 170.228405 Weight (Pounds): 160 Weight (Calculated Kilograms): 72.575 BMI: 25.4 Arnoldo Nutrition Score: Adequate Arnoldo Nutrition Risk Score: 16 Dietary Referral Nutrition Risk Factors: Special Diet Nutrition Risk Comment: Nutritional Diagnosis Nutritional Risk Acuity 2: Chronic Renal Failure, Blood Glucose > 300mg/dl Nutritional Risk Acuity 4: Modified Diet Past Medical History: CAD, HTN, T2DM, CKD-3, non-Hodkins lymphoma, CHF, chronic edema, chronic UTI, hypercholesteremia, urinary incontinence, chronic renal disease, pulmonary nodule, GI bleed, anemia, ribs (multiple fractures), hypogammagloblinemia, lumbosacral spinal surgery, tonsillectomy, and cataract extraction and CABG, T2DM, chronic afib. Nutritional Acuity: 2-Moderate Nutrition Diagnosis: Inconsistent Carb. Intake Nutrition Etiology: Physiological Causes Nutrition Problem/Etiology/Sym: Inconsistent carb intake as related to physiologic causes as evidenced by T2DM and whole blood glucose of over 300. Energy Requirement: 1812 (25kcal/kg. Pt does not have a ht at this time to assess energy needs. nursing will obtain ht on .) Protein Requirement: 73 (1 g protein/kg. Slightly elevated due to illness and age.) Fluid Requirement: 1812 (1mL/kcal) Diet Type: Diabetic Nutrition Intervention: Cont diet as ordered, Encourage intake, HS snack Nutrition Monitoring & Eval Nutrition Goals: Eat 75-100% Meal, Drink > 1500 cc/day Nutrition Follow-Up: Good Intake RD Patient Assessment Time: [address] Assessment Type: RD Re-Assessment Patient Nutrition Acuity: 2-Moderate Follow Up Date: Feb 18, 2019 Nutritional Comment: Pt admitted to [facility] from med/surg due to weakness. Recent fall and bacterial pneumonia. Hx of acute diastolic heart failure, hypercholesteremia, essential HTN, T2DM. CAD, CKD. and chronic a-fib. Pt currently on ADA diet with 50-100% intakes at meals and refusal of 1 snack. Pt has 1+ edema in both feet. Pt is taking insuling, a multivitamin, and rivaroxaban. No ht at this time, nursing will obtain ht on 02/01/49. Whole blood glucose on 01/31 was 136 and 311. On 02/01 whole blood glucose was 87. Monitor for adequate intake, and blood glucose levels. -AKG 02/03/19-Visited with pt this am. Pt reports nausea, RN was aware. Discussed some ways to combat nausea. Pt currently on diabetic diet eating 86% of small to regular meals. Blood glucose remains elevated 219-258 range yesterday. Had one low BG at 60. Wt remains stable. JACKIE 02/10 Pt cont on diabetic diet, eatin 75-100% of small to regular portions. BG cont elevated in 200's with occasional 300's. Pt is recieving insulin. Hgb low at 10.4, Hct low at 32.4. Wt is stable. Will cont to monitor and encourage intake. RAS LUJAN Feb 10, 2019 16:37
[2019-02-10] MEDS: NITROFURANTOIN MACROCRYSTALS 50 MG PO SCH (20:46)
[2019-02-10] MEDS: MELATONIN 3 MG TAB PO SCH (20:47)
[2019-02-11 07:30] VITALS: BP 156/84
[2019-02-11] MEDS: DIGOXIN 0.125 MG TAB PO SCH (08:20)
[2019-02-11] MEDS: GABAPENTIN 300 MG CAP PO SCH ×2 (08:20→20:36)
[2019-02-11] MEDS: amLODIPine BESYL(*) 5 MG TAB PO SCH (08:20)
[2019-02-11] MEDS: LACTOBACILLUS ACIDOPHILUS TAB PO SCH ×2 (08:20→17:21)
[2019-02-11] MEDS: guaiFENesin 600 MG TABCR PO SCH ×2 (08:20→20:36)
[2019-02-11] MEDS: ATORVASTATIN 10 MG TAB PO SCH (08:20)
[2019-02-11] MEDS: CARVEDILOL 25 MG TABLET PO SCH ×2 (08:21→20:36)
[2019-02-11] MEDS: PANTOPRAZOLE SOD 40 MG TABEC PO SCH ×2 (08:21→20:36)
[2019-02-11] MEDS: INSULIN HUM ISO(NPH) 100 UN/ML 3 ML VIAL SUBQ SCH ×2 (08:26→17:22)
[2019-02-11] MEDS: INSULIN HUMAN LISPRO SLIDING SCALE SUBQ PRN ×4 (08:26→20:39)
[2019-02-11] MEDS: ACETAMINOPHEN 325 MG TAB PO PRN ×2 (08:26→20:36)
[2019-02-11] MEDS: MULTIVITAMINS TAB PO SCH (12:51)
[2019-02-11 16:45] VITALS: BP 168/73
[2019-02-11] MEDS: MELATONIN 3 MG TAB PO SCH (20:36)
[2019-02-11] MEDS: NITROFURANTOIN MACROCRYSTALS 50 MG PO SCH (20:36)
[2019-02-12 07:33] VITALS: BP 160/70
[2019-02-12] MEDS: CARVEDILOL 25 MG TABLET PO SCH ×2 (08:45→20:40)
[2019-02-12] MEDS: DIGOXIN 0.125 MG TAB PO SCH (08:45)
[2019-02-12] MEDS: PANTOPRAZOLE SOD 40 MG TABEC PO SCH ×2 (08:45→20:40)
[2019-02-12] MEDS: ATORVASTATIN 10 MG TAB PO SCH (08:45)
[2019-02-12] MEDS: amLODIPine BESYL(*) 5 MG TAB PO SCH (08:45)
[2019-02-12] MEDS: ACETAMINOPHEN 325 MG TAB PO PRN ×2 (08:46→20:40)
[2019-02-12] MEDS: INSULIN HUM ISO(NPH) 100 UN/ML 3 ML VIAL SUBQ SCH ×2 (08:46→16:39)
[2019-02-12] MEDS: LACTOBACILLUS ACIDOPHILUS TAB PO SCH ×2 (08:46→16:40)
[2019-02-12] MEDS: GABAPENTIN 300 MG CAP PO SCH ×2 (08:46→20:40)
[2019-02-12] MEDS: guaiFENesin 600 MG TABCR PO SCH ×2 (08:46→20:40)
[2019-02-12] MEDS: MULTIVITAMINS TAB PO SCH (11:49)
[2019-02-12] MEDS: INSULIN HUMAN LISPRO SLIDING SCALE SUBQ PRN ×2 (12:25→16:40)
--- NOTE | 2019-02-12 12:27 | OT ECF NOTE ---
Type of Note: Discharge Note Primary Medical Diagnosis: Generalized weakness s/p UTI/Pneumonia Occupational Therapy Evaluation Date: 01/31/19 SUBJECTIVE: Prior Hospitalization: [facility] 01/27/19-01/31/19. Recurrent hospital admissions (please refer to EMR) Prior Level of Function: Modified Independent with toileting and LB dressing. Assist for bathing and all IADLs. Ambulating with RW. Frequent falls, reporting 6 falls within the last month. Pt reports she "slides off surfaces" and calls EMS for assist up. 3L Baseline O2 12/03. Prior Living Status: Apartment Alone Assist by family Community Services: Home health care (assists with medication management) Meals on Wheels No known needs Home Accessibility: One step into home All needs on one level Tub/shower combination Equipment Owned: Front wheeled walker Toilet riser Tub/shower chair Medical Complications/Past Medical History: Please refer to EMR Psychosocial Support: Son who resides in [facility], Visits every weekend to assist with IADLs and bathing. Pain Scale (0-10): None reported at time of discharge OBJECTIVE: Strength: MMT: Right Left Shoulder Flexion WFL WFL Elbow Flexion WFL WFL Wrist Extension WFL WFL Wood Pole Treater WFL WFL (5= normal, 4= good, 3= fair, 2= poor, 1= trace) ROM: Both upper extremities, WFL Sensation: No paraesthesia reported Functional Transfer: Assistive Device: Front wheeled walker, Gait belt Transfer Ability: SBA ADL: Upper body dressing: Assistive device: None Upper body dressing ability: Independent Lower body dressing: Assistive device: None Lower body dressing ability: SBA Toileting: Assistive device: Grab bars Toileting ability: SBA Grooming/hygiene: Assistive device: Standing Grooming ability: SBA Bathing: Assistive device: Shower chair Bathing ability: Set-up Standardized Assessment: Amado Index of Activities of Daily Livin20 upon admission (01/31/19). 19/20 upon discharge (02/12/19). ASSESSMENT: Elena presented to F requiring supervision for ADLs and assist for IADLs. She has inconsistent functional independence, frequent falls at home, and frequent hospital readmissions. It is recommended that she discharge to a setting with 24/7 care. She has met all skilled OT goals and is at baseline for ADLs. Short Term Goals: 1) Pt will tolerate ambulation on various surfaces community distances in order to safely engage in IADLs (ambulating to mailbox). GOAL MET 2) Pt will be SBA shower task seated. GOAL MET 3) Pt will be SBA light meal prep task. GOAL MET 4) Pt will be educated on appropriate fall prevention strategies. GOAL MET 5) Pt will be Independent [facility]. GOAL MET 6) Pt Amado Index of ADLs score will improve by two points.GOAL MET [employer] Technical Officer Goals: Discharge to least restrictive environment-Recommend / supervision Patient Goals: Currently, pt reports desire to discharge to assisted living facility if able. Rehabilitation Prognosis: Good Barriers to Discharge: Frequent falls, frequent readmissions, decreased initiation for ADLs/IADLs, Inconsistent functional independence PLAN: The patient will remain on [facility] ECF as the most safe and appropriate discharge plans are arranged. Thank you for this referral. If you have any questions, concerns, or comments about this report or plan, please contact me at . Oma Solano MS, OTR/L Occupational Therapist NIRMAL
--- NOTE | 2019-02-12 13:53 | Hospitalist Progress Note ---
Subjective Progress Notes Subjective The patient feels better since having a blood transfusion a week ago. She denies feeling fatigued or short of breath today. Physical Exam Vital Signs Date Time Temp Pulse Resp B/P (MAP) Pulse Ox O2 Delivery O2 Flow Rate FiO2 02/12/19 08:45 64 02/12/19 08:30 95 Nasal Cannula 3.0 02/12/19 07:33 98.3 14 160/70 (100) Intake and Output0 02/12/19 07:01 Intake Total 720 ml Balance 720 ml Intake Oral 720 ml # Voids 5 # Bowel Movements 2 General Appearance: Alert, Awake, No Acute Distress Neuro: No Gross deficits Cardiovascular: Regular Rate and Rhythm Respiratory: Clear to Auscultation GI: Soft and Non-Tender Extremities: Warm, Perfused, Edema (R>L lower extremities.) Psych: Alert & Oriented X3, Appropriate Mood & Affect Result Diagram: 02/12/19 0648 Assessment and Plan Problems: (1) Blood loss Status: Acute Assessment & Plan: The patient did drop her Hgb from 9.2 to 8.2 last week. She was symptomatic with weakness and shortness of breath. Xarelto was stopped. She received one unit of PRBCs. UA showed significant hematuria and hemoccult was positive. Protonix was started. H&H has been stable. The patient has seen Dr. Jara, urologist, in the past and did undergo cystoscopy in July 2018. I can not see that she has had a GI workup in the past, but GI bleeding is listed in her diagnoses. Will restart Xarelto while on Protonix and watch closely. If she develops recurrent or GI blood loss, will need further evaluation. (2) Bacterial pneumonia Status: Acute Assessment & Plan: Her chest x-ray showed a new right lower lobe infiltrate and her WBC was elevated. She was started on empiric treatment with IV ceftriaxone and doxycycline. Her WBC count normalized. Her oxygen requirement did improve. She was transitioned to oral Omnicef and Doxycycline. She is still requiring supplemental O2. She did work with PT/OT during her stay on the medical floor. It was felt she would most likely need ongoing care either at home or in SNF. In the past, she has not done well at home even with home health care. Arrangements were made for transfer to [facility] for ongoing rehabilitation. (3) UTI (urinary tract infection) Status: Acute Assessment & Plan: Due to E. coli. She was on the IV antibiotics for her pneumonia as noted above. Sensitivities showed the E. coli to be sensitive to ceftriaxone. She will complete her course of therapy with the Omnicef. She will resume her prophylactic nitrofurantoin as well. (4) CHRONIC ATRIAL FIBRILLATION Status: Chronic Assessment & Plan: She is on chronic treatment with digoxin and Xarelto. Her digoxin level was in therapeutic range. Her heart rate was controlled. She did drop her Hgb (see above) so her Xarelto was stopped. She received one unit of PRBCs and her Hgb has remained stable since. Will restart Xarelto 15mg daily today and monitor closely. (5) Essential hypertension Status: Chronic Assessment & Plan: She is on chronic treatment with amlodipine and carvedilol. (6) Type II diabetes mellitus Status: Chronic Assessment & Plan: She has been on chronic treatment with NPH. She was also covered with sliding scale level #2. Will increase her NPH from 20 to 25 today as her sugars are running a bit high. (7) Acute renal failure Status: Acute Assessment & Plan: Mild. Most likely due to dehydration. She was admitted with creatinine of 1.4. It improved with gentle IV fluids to 1.1 while on the medical floor. It is now 0.9 on ECF. (8) Follicular non-Hodgkin's lymphoma Status: Chronic Assessment & Plan: Low grade non-Hodgkin lymphoma/small lymphocytic leukemia: Per the most recent [facility] from the [facility], the plan is for continued active surveillance. She has not required treatment for this. (9) CAD (coronary artery disease) Status: Chronic Assessment & Plan: The patient's last echo showed an EF of 35-40% with global hypokinesis of the L ventricle. Continue carvedilol. 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 The [facility] increased t he dose of her IVIG. Her most recent level was in the low 500s with replacement. The plan was to continue this indefinitely. Unfortunately, patient did have a fall and sustained some fractures and was in and out of the hospital and rehabilitation, then followed by assisted. She had been off IVIG since about mid to late August 2018. She received a dose on [facility]. Time Spent on Plan of Care: < 30 min YARELI THURMAN MD Feb 12, 2019 13:52
[2019-02-12] MEDS: RIVAROXABAN 10 MG TAB PO SCH (14:44)
[2019-02-12 15:19] VITALS: BP 163/81
--- NOTE | 2019-02-12 15:58 | PT ECF NOTE ---
Type of Note: Discharge note 02/12/19 Primary Medical Diagnosis: Weakness Physical Therapy Evaluation Date: 01/31/2019 SUBJECTIVE: Prior Hospitalization: 01/27/2019 -01/31/2019 for pneumonia, See EMR for other admissions Prior Level of Function: Ambulating with RW Prior Living Status: Single level house, Alone, Son comes over once a week to assist with any needs Community Services: Home health care, Meals on Wheels Home Accessibility: One step into home Equipment Owned: Front wheeled walker Medical Complications/Past Medical History: See EMR OBJECTIVE: Strength: Right Lower Extremity: DF: 5/5 Knee flexion: 4+/5 Knee extension: 5/5 Hip flexion: 3+/5 Left Lower Extremity: DF: 5/5 Knee flexion: 4/5 Knee extension: 5/5 Hip flexion: 3+/5 Bed Mobility: SBA Assistive device: Transfers: SBA Assistive Device: Front wheeled walker Gait: SBAx 330 ft with seated rest break Assistive device: Front wheeled walker Stairs: 1 stair x CGA Assistive device: 10 meter walk test (0.6m/second cannot function independently): 0.3 m/second (not reassessed since evaluation) ASSESSMENT: Pt has shown improved endurance, increasing ambulation distance to over 300 ft. Pt was able to negotiate stairs with only CGA. Pt is at a level safe to discharge to the recommended 24 hour care. 24 hour care recommended due to required SBA for all transfers/mobility and history of repeated falls and multiple hospital re-admissions. Pt near all PT goals, however, has reached maximum benefit from skilled PT interventions. Currently Pt plans to DC to SNF. Problem List/Current Limitations: Decreased activity lo, Decreased strength, Decreased balance, Generalized weakness Short Term Goals: Partially met 1. Independent with bed mobility 2. Stand by assistance for transfers with RW (met) 3. Stand by assistance for ambulation of 150 feet with RW (met) 4. Able to Ascend/Descend 1 stair with CGA (met) 5. Improve gait speed to >0.6 m/second Senior Care Goals: Pt to d/c to safest environment with appropriate support in place. Patient Goals: Unclear PLAN: Recommend continued 24 hour care and continued home exercise program including walking with nursing. Thank you for this referral. If you have any questions, concerns, or comments about this report or plan, please contact me at . Augustin Doll, SPT Nicolasa Ortega, PT, DPT, GCS MTDD
[2019-02-12] MEDS: MELATONIN 3 MG TAB PO SCH (20:40)
[2019-02-12] MEDS: NITROFURANTOIN MACROCRYSTALS 50 MG PO SCH (20:40)
[2019-02-13 07:39] VITALS: BP 154/69
[2019-02-13] MEDS: LACTOBACILLUS ACIDOPHILUS TAB PO SCH ×2 (08:00→16:40)
[2019-02-13] MEDS: ATORVASTATIN 10 MG TAB PO SCH (08:39)
[2019-02-13] MEDS: GABAPENTIN 300 MG CAP PO SCH ×2 (08:39→21:07)
[2019-02-13] MEDS: INSULIN HUM ISO(NPH) 100 UN/ML 3 ML VIAL SUBQ SCH ×2 (08:39→16:38)
[2019-02-13] MEDS: INSULIN HUMAN LISPRO SLIDING SCALE SUBQ PRN ×4 (08:39→21:07)
[2019-02-13] MEDS: FERROUS GLUCONATE 324 MG TAB PO SCH (08:40)
[2019-02-13] MEDS: PANTOPRAZOLE SOD 40 MG TABEC PO SCH ×2 (08:40→21:07)
[2019-02-13] MEDS: guaiFENesin 600 MG TABCR PO SCH ×2 (08:40→21:07)
[2019-02-13] MEDS: amLODIPine BESYL(*) 5 MG TAB PO SCH (08:40)
[2019-02-13] MEDS: CARVEDILOL 25 MG TABLET PO SCH ×2 (08:40→21:07)
[2019-02-13] MEDS: RIVAROXABAN 10 MG TAB PO SCH (08:41)
[2019-02-13] MEDS: DIGOXIN 0.125 MG TAB PO SCH (08:41)
[2019-02-13] MEDS ORDERED: RIVAROXABAN 10 MG TAB PO SCH (09:00)
[2019-02-13] MEDS: ACETAMINOPHEN 325 MG TAB PO PRN ×2 (11:35→21:07)
[2019-02-13] MEDS: MULTIVITAMINS TAB PO SCH (11:36)
[2019-02-13 17:00] VITALS: BP 170/71
[2019-02-13] MEDS: NITROFURANTOIN MACROCRYSTALS 50 MG PO SCH (21:07)
[2019-02-13] MEDS: MELATONIN 3 MG TAB PO SCH (21:07)
[2019-02-14 07:43] VITALS: BP 167/75
[2019-02-14] MEDS: guaiFENesin 600 MG TABCR PO SCH ×2 (09:16→20:19)
[2019-02-14] MEDS: FERROUS GLUCONATE 324 MG TAB PO SCH (09:16)
[2019-02-14] MEDS: amLODIPine BESYL(*) 5 MG TAB PO SCH (09:16)
[2019-02-14] MEDS: GABAPENTIN 300 MG CAP PO SCH ×2 (09:16→20:19)
[2019-02-14] MEDS: INSULIN HUM ISO(NPH) 100 UN/ML 3 ML VIAL SUBQ SCH ×2 (09:16→16:51)
[2019-02-14] MEDS: DIGOXIN 0.125 MG TAB PO SCH (09:17)
[2019-02-14] MEDS: CARVEDILOL 25 MG TABLET PO SCH ×2 (09:17→20:19)
[2019-02-14] MEDS: ATORVASTATIN 10 MG TAB PO SCH (09:17)
[2019-02-14] MEDS: PANTOPRAZOLE SOD 40 MG TABEC PO SCH ×2 (09:17→20:19)
[2019-02-14] MEDS: LACTOBACILLUS ACIDOPHILUS TAB PO SCH ×2 (09:17→16:55)
[2019-02-14] MEDS: RIVAROXABAN 10 MG TAB PO SCH (09:17)
[2019-02-14] MEDS: MULTIVITAMINS TAB PO SCH (11:56)
[2019-02-14] MEDS: INSULIN HUMAN LISPRO SLIDING SCALE SUBQ PRN ×3 (11:57→20:19)
[2019-02-14 14:56] VITALS: BP 150/70
[2019-02-14] MEDS: ACETAMINOPHEN 325 MG TAB PO PRN (20:19)
[2019-02-14] MEDS: NITROFURANTOIN MACROCRYSTALS 50 MG PO SCH (20:19)
[2019-02-14] MEDS: MELATONIN 3 MG TAB PO SCH (20:19)
[2019-02-15 06:25] LABS: PLATELET COUNT, AUTOMATED 213 K/uL (150-450)
[2019-02-15 07:13] VITALS: BP 168/69
[2019-02-15] MEDS: LACTOBACILLUS ACIDOPHILUS TAB PO SCH ×2 (08:21→17:21)
[2019-02-15] MEDS: ACETAMINOPHEN 325 MG TAB PO PRN ×3 (08:21→22:13)
[2019-02-15] MEDS: GABAPENTIN 300 MG CAP PO SCH ×2 (08:21→21:19)
[2019-02-15] MEDS: PANTOPRAZOLE SOD 40 MG TABEC PO SCH ×2 (08:21→21:19)
[2019-02-15] MEDS: CARVEDILOL 25 MG TABLET PO SCH ×2 (08:22→21:19)
[2019-02-15] MEDS: RIVAROXABAN 10 MG TAB PO SCH (08:22)
[2019-02-15] MEDS: amLODIPine BESYL(*) 5 MG TAB PO SCH (08:22)
[2019-02-15] MEDS: DIGOXIN 0.125 MG TAB PO SCH (08:22)
[2019-02-15] MEDS: FERROUS GLUCONATE 324 MG TAB PO SCH (08:22)
[2019-02-15] MEDS: ATORVASTATIN 10 MG TAB PO SCH (08:22)
[2019-02-15] MEDS: INSULIN HUMAN LISPRO SLIDING SCALE SUBQ PRN ×4 (08:23→21:21)
[2019-02-15] MEDS: INSULIN HUM ISO(NPH) 100 UN/ML 3 ML VIAL SUBQ SCH ×2 (08:23→17:26)
[2019-02-15] MEDS: guaiFENesin 600 MG TABCR PO SCH ×2 (09:00→21:19)
[2019-02-15] MEDS: MULTIVITAMINS TAB PO SCH (12:19)
[2019-02-15 16:01] VITALS: BP 171/65
[2019-02-15] MEDS: MELATONIN 3 MG TAB PO SCH (21:18)
[2019-02-15] MEDS: NITROFURANTOIN MACROCRYSTALS 50 MG PO SCH (21:19)
[2019-02-16 07:21] VITALS: BP 158/80
[2019-02-16] MEDS: LACTOBACILLUS ACIDOPHILUS TAB PO SCH ×2 (08:00→17:00)
[2019-02-16] MEDS: FERROUS GLUCONATE 324 MG TAB PO SCH (08:35)
[2019-02-16] MEDS: ATORVASTATIN 10 MG TAB PO SCH (08:35)
[2019-02-16] MEDS: DIGOXIN 0.125 MG TAB PO SCH (08:36)
[2019-02-16] MEDS: GABAPENTIN 300 MG CAP PO SCH ×2 (08:36→21:42)
[2019-02-16] MEDS: amLODIPine BESYL(*) 5 MG TAB PO SCH (08:36)
[2019-02-16] MEDS: PANTOPRAZOLE SOD 40 MG TABEC PO SCH ×2 (08:36→21:43)
[2019-02-16] MEDS: INSULIN HUM ISO(NPH) 100 UN/ML 3 ML VIAL SUBQ SCH ×2 (08:37→17:18)
[2019-02-16] MEDS: guaiFENesin 600 MG TABCR PO SCH ×2 (08:37→21:43)
[2019-02-16] MEDS: CARVEDILOL 25 MG TABLET PO SCH ×2 (08:37→21:43)
[2019-02-16] MEDS: RIVAROXABAN 10 MG TAB PO SCH (08:37)
[2019-02-16] MEDS: INSULIN HUMAN LISPRO SLIDING SCALE SUBQ PRN ×4 (08:38→21:45)
[2019-02-16] MEDS: MULTIVITAMINS TAB PO SCH (12:33)
[2019-02-16 16:10] VITALS: BP 156/78
[2019-02-16] MEDS: ACETAMINOPHEN 325 MG TAB PO PRN (19:50)
[2019-02-16] MEDS: NITROFURANTOIN MACROCRYSTALS 50 MG PO SCH (21:43)
[2019-02-16] MEDS: MELATONIN 3 MG TAB PO SCH (21:43)
[2019-02-17 07:35] VITALS: BP 156/68
[2019-02-17] MEDS: ACETAMINOPHEN 325 MG TAB PO PRN ×3 (07:50→23:39)
[2019-02-17] MEDS: LACTOBACILLUS ACIDOPHILUS TAB PO SCH ×2 (07:52→17:00)
[2019-02-17] MEDS: amLODIPine BESYL(*) 5 MG TAB PO SCH (08:38)
[2019-02-17] MEDS: MULTIVITAMINS TAB PO SCH (08:39)
[2019-02-17] MEDS: CARVEDILOL 25 MG TABLET PO SCH ×2 (08:39→20:53)
[2019-02-17] MEDS: PANTOPRAZOLE SOD 40 MG TABEC PO SCH ×2 (08:39→20:53)
[2019-02-17] MEDS: ATORVASTATIN 10 MG TAB PO SCH (08:39)
[2019-02-17] MEDS: guaiFENesin 600 MG TABCR PO SCH ×2 (08:39→20:53)
[2019-02-17] MEDS: DIGOXIN 0.125 MG TAB PO SCH (08:39)
[2019-02-17] MEDS: FERROUS GLUCONATE 324 MG TAB PO SCH (08:39)
[2019-02-17] MEDS: RIVAROXABAN 10 MG TAB PO SCH (08:40)
[2019-02-17] MEDS: INSULIN HUM ISO(NPH) 100 UN/ML 3 ML VIAL SUBQ SCH ×2 (08:40→17:20)
[2019-02-17] MEDS: GABAPENTIN 300 MG CAP PO SCH ×2 (08:40→20:53)
[2019-02-17] MEDS: NYSTATIN 100,000 U/GM PWD 15GM TP SCH ×2 (11:36→20:52)
[2019-02-17] MEDS: INSULIN HUMAN LISPRO SLIDING SCALE SUBQ PRN ×2 (12:13→20:53)
[2019-02-17 15:13] VITALS: BP 147/60
--- NOTE | 2019-02-17 16:09 | Medical Nutrition Therapy ---
Nutrition Anthropometrics Height (Inches): 67.00 Height (Calculated Centimeters: 170.510135 Weight (Pounds): 160 Weight (Calculated Kilograms): 72.830 BMI: 25.4 Arnoldo Nutrition Score: Adequate Arnoldo Nutrition Risk Score: 15 Dietary Referral Nutrition Risk Factors: Special Diet Nutrition Risk Comment: Nutritional Diagnosis Nutritional Risk Acuity 2: Chronic Renal Failure, Blood Glucose > 300mg/dl Nutritional Risk Acuity 4: Modified Diet Past Medical History: CAD, HTN, T2DM, CKD-3, non-Hodkins lymphoma, CHF, chronic edema, chronic UTI, hypercholesteremia, urinary incontinence, chronic renal disease, pulmonary nodule, GI bleed, anemia, ribs (multiple fractures), hypogammagloblinemia, lumbosacral spinal surgery, tonsillectomy, and cataract extraction and CABG, T2DM, chronic afib. Nutritional Acuity: 2-Moderate Nutrition Diagnosis: Inconsistent Carb. Intake Nutrition Etiology: Physiological Causes Nutrition Problem/Etiology/Sym: Inconsistent carb intake as related to physiologic causes as evidenced by T2DM and whole blood glucose of over 300. Energy Requirement: 1812 (25kcal/kg. Pt does not have a ht at this time to assess energy needs. nursing will obtain ht on .) Protein Requirement: 73 (1 g protein/kg. Slightly elevated due to illness and age.) Fluid Requirement: 1812 (1mL/kcal) Diet Type: Diabetic Nutrition Intervention: Cont diet as ordered, Encourage intake, HS snack Nutrition Monitoring & Eval Nutrition Goals: Eat 75-100% Meal, Drink > 2 liters/day Nutrition Follow-Up: Good Intake RD Patient Assessment Time: [address] Assessment Type: RD Re-Assessment Patient Nutrition Acuity: 2-Moderate Follow Up Date: Feb 25, 2019 Nutritional Comment: Pt admitted to [facility] from med/surg due to weakness. Recent fall and bacterial pneumonia. Hx of acute diastolic heart failure, hypercholesteremia, essential HTN, T2DM. CAD, CKD. and chronic a-fib. Pt currently on ADA diet with 50-100% intakes at meals and refusal of 1 snack. Pt has 1+ edema in both feet. Pt is taking insuling, a multivitamin, and rivaroxaban. No ht at this time, nursing will obtain ht on 02/01/49. Whole blood glucose on 01/31 was 136 and 311. On 02/01 whole blood glucose was 87. Monitor for adequate intake, and blood glucose levels. -AKSwathi 02/03/19-Visited with pt this am. Pt reports nausea, RN was aware. Discussed some ways to combat nausea. Pt currently on diabetic diet eating 86% of small to regular meals. Blood glucose remains elevated 219-258 range yesterday. Had one low BG at 60. Wt remains stable. JACKIE 02/10 Pt cont on diabetic diet, eatin 75-100% of small to regular portions. BG cont elevated in 200's with occasional 300's. Pt is recieving insulin. Hgb low at 10.4, Hct low at 32.4. Wt is stable. Will cont to monitor and encourage intake. NEHEMIAS 02/17 Pt cont on diabetic diet. Intake average 88% of small to regular portions. BG cont elevated in 200's with occasional 300's. Pt is recieving insulin. Wt is stable. Will cont to monitor and encourage intake. RAS LUJAN Feb 17, 2019 16:09
[2019-02-17] MEDS: MELATONIN 3 MG TAB PO SCH (20:52)
[2019-02-17] MEDS: NITROFURANTOIN MACROCRYSTALS 50 MG PO SCH (20:53)
[2019-02-18 07:40] VITALS: BP 167/68
[2019-02-18] MEDS: LACTOBACILLUS ACIDOPHILUS TAB PO SCH ×2 (08:00→16:54)
[2019-02-18] MEDS: CARVEDILOL 25 MG TABLET PO SCH ×2 (08:44→20:46)
[2019-02-18] MEDS: MULTIVITAMINS TAB PO SCH (08:45)
[2019-02-18] MEDS: RIVAROXABAN 10 MG TAB PO SCH (08:45)
[2019-02-18] MEDS: PANTOPRAZOLE SOD 40 MG TABEC PO SCH ×2 (08:45→20:47)
[2019-02-18] MEDS: guaiFENesin 600 MG TABCR PO SCH ×2 (08:45→20:46)
[2019-02-18] MEDS: ACETAMINOPHEN 325 MG TAB PO PRN ×2 (08:45→20:46)
[2019-02-18] MEDS: DIGOXIN 0.125 MG TAB PO SCH (08:45)
[2019-02-18] MEDS: amLODIPine BESYL(*) 5 MG TAB PO SCH (08:45)
[2019-02-18] MEDS: GABAPENTIN 300 MG CAP PO SCH ×2 (08:45→20:46)
[2019-02-18] MEDS: INSULIN HUM ISO(NPH) 100 UN/ML 3 ML VIAL SUBQ SCH ×2 (08:46→17:12)
[2019-02-18] MEDS: FERROUS GLUCONATE 324 MG TAB PO SCH (08:46)
[2019-02-18] MEDS: INSULIN HUMAN LISPRO SLIDING SCALE SUBQ PRN ×4 (08:46→20:47)
[2019-02-18] MEDS: ATORVASTATIN 10 MG TAB PO SCH (08:46)
[2019-02-18] MEDS: NYSTATIN 100,000 U/GM PWD 15GM TP SCH ×2 (08:47→20:46)
[2019-02-18 16:56] VITALS: BP 155/74
[2019-02-18] MEDS: MELATONIN 3 MG TAB PO SCH (20:46)
[2019-02-18] MEDS: NITROFURANTOIN MACROCRYSTALS 50 MG PO SCH (20:46)
[2019-02-19 07:12] VITALS: BP 183/78
[2019-02-19] MEDS: LACTOBACILLUS ACIDOPHILUS TAB PO SCH ×2 (08:00→16:57)
[2019-02-19] MEDS: CARVEDILOL 25 MG TABLET PO SCH ×2 (08:57→20:40)
[2019-02-19] MEDS: guaiFENesin 600 MG TABCR PO SCH ×2 (08:57→20:40)
[2019-02-19] MEDS: PANTOPRAZOLE SOD 40 MG TABEC PO SCH ×2 (08:58→20:41)
[2019-02-19] MEDS: GABAPENTIN 300 MG CAP PO SCH ×2 (08:58→20:41)
[2019-02-19] MEDS: amLODIPine BESYL(*) 5 MG TAB PO SCH (08:58)
[2019-02-19] MEDS: ACETAMINOPHEN 325 MG TAB PO PRN ×2 (08:58→20:41)
[2019-02-19] MEDS: DIGOXIN 0.125 MG TAB PO SCH (08:58)
[2019-02-19] MEDS: MULTIVITAMINS TAB PO SCH (08:58)
[2019-02-19] MEDS: FERROUS GLUCONATE 324 MG TAB PO SCH (08:58)
[2019-02-19] MEDS: ATORVASTATIN 10 MG TAB PO SCH (08:58)
[2019-02-19] MEDS: INSULIN HUMAN LISPRO SLIDING SCALE SUBQ PRN ×4 (08:59→20:40)
[2019-02-19] MEDS: RIVAROXABAN 10 MG TAB PO SCH (08:59)
[2019-02-19] MEDS: NYSTATIN 100,000 U/GM PWD 15GM TP SCH ×2 (08:59→20:41)
[2019-02-19] MEDS: INSULIN HUM ISO(NPH) 100 UN/ML 3 ML VIAL SUBQ SCH ×2 (09:00→17:03)
[2019-02-19 10:46] VITALS: BP 165/73
[2019-02-19 12:05] VITALS: BP 148/72
--- NOTE | 2019-02-19 15:02 | Hospitalist Progress Note ---
Physical Exam Vital Signs Date Time Temp Pulse Resp B/P (MAP) Pulse Ox O2 Delivery O2 Flow Rate FiO2 02/19/19 12:05 98.2 75 15 148/72 (97) 98 Nasal Cannula 3.0 Intake and Output 02/19/19 07:02 Intake Total 1200 ml Balance 1200 ml Intake Oral 1200 ml # Voids 13 # Bowel Movements 9 Result Diagram: 02/15/19 0608 02/15/19 0608 Assessment and Plan Problems: (1) Blood loss Status: Acute Assessment & Plan: The patient did drop her Hgb from 9.2 to 8.2 last week. She was symptomatic with weakness and shortness of breath. Xarelto was stopped. She received one unit of PRBCs. UA showed significant hematuria and hemoccult was positive. Protonix was started. H&H has been stable. The patient has seen Dr. Jara, urologist, in the past and did undergo cystoscopy in July 2018. I can not see that she has had a GI workup in the past, but GI bleeding is listed in her diagnoses. Will restart Xarelto while on Protonix and watch closely. If she develops recurrent or GI blood loss, will need further evaluation. Will repeat labs on 02/21/19. (2) Bacterial pneumonia Status: Acute Assessment & Plan: Her chest x-ray showed a new right lower lobe infiltrate and her WBC was elevated. She was started on empiric treatment with IV ceftriaxone and doxycycline. Her WBC count normalized. Her oxygen requirement did improve. She was transitioned to oral Omnicef and Doxycycline. She is still requiring supplemental O2. She did work with PT/OT during her stay on the medical floor. It was felt she would most likely need ongoing care either at home or in SNF. In the past, she has not done well at home even with home health care. Arrangements were made for transfer to [facility] for ongoing rehabilitation. (3) UTI (urinary tract infection) Status: Acute Assessment & Plan: Due to E. coli. She was on the IV antibiotics for her pneumonia as noted above. Sensitivities showed the E. coli to be sensitive to ceftriaxone. She will complete her course of therapy with the Omnicef. She will resume her prophylactic nitrofurantoin as well. (4) CHRONIC ATRIAL FIBRILLATION Status: Chronic Assessment & Plan: She is on chronic treatment with digoxin and Xarelto. Her digoxin level was in therapeutic range. Her heart rate was controlled. She did drop her Hgb (see above) so her Xarelto was stopped. She received one unit of PRBCs and her Hgb has remained stable since. Will restart Xarelto 15mg daily today and monitor closely. (5) Essential hypertension Status: Chronic Assessment & Plan: She is on chronic treatment with amlodipine and carvedilol. (6) Type II diabetes mellitus Status: Chronic Assessment & Plan: She has been on chronic treatment with NPH. She was also covered with sliding scale level #2. Will increase her NPH from 20 to 25 today as her sugars are running a bit high. (7) Acute renal failure Status: Acute Assessment & Plan: Mild. Most likely due to dehydration. She was admitted with creatinine of 1.4. It improved with gentle IV fluids to 1.1 while on the medical floor. It is now 0.9 on ECF. (8) Follicular non-Hodgkin's lymphoma Status: Chronic Assessment & Plan: Low grade non-Hodgkin lymphoma/small lymphocytic leukemia: Per the most recent note from the [facility], the plan is for continued active surveillance. She has not required treatment for this. (9) CAD (coronary artery disease) Status: Chronic Assessment & Plan: The patient's last echo showed an EF of 35-40% with global hypokinesis of the L ventricle. Continue carvedilol. 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 The [facility] increased the dose of her IVIG. Her most recent level was in the low 500s with replaceme nt. The plan was to continue this indefinitely. Unfortunately, patient did have a fall and sustained some fractures and was in and out of the hospital and rehabilitation, then [facility]. She had been off IVIG since about mid to late August 2018. She received a dose on [facility] at [facility]. (11) Frontal headache Status: Chronic Assessment & Plan: The patient states she wakes up without a headache and then develops pain over her R eye. She says she can remember having this since grade school. Will try something for sinus type headache to see if she can get some relief. Time Spent on Plan of Care: < 30 min YARELI THURMAN MD Feb 19, 2019 15:02
[2019-02-19 17:25] VITALS: BP 136/70
[2019-02-19] MEDS: FLUTICASONE PROP 0.05% 16 GM PRN (20:40)
[2019-02-19] MEDS: NITROFURANTOIN MACROCRYSTALS 50 MG PO SCH (20:40)
[2019-02-19] MEDS: MELATONIN 3 MG TAB PO SCH (20:41)
[2019-02-20] MEDS: LACTOBACILLUS ACIDOPHILUS TAB PO SCH ×2 (08:00→17:00)
[2019-02-20 08:36] VITALS: BP 160/67
[2019-02-20] MEDS: FLUTICASONE PROP 0.05% 16 GM PRN (08:39)
[2019-02-20] MEDS: MULTIVITAMINS TAB PO SCH (08:40)
[2019-02-20] MEDS: INSULIN HUM ISO(NPH) 100 UN/ML 3 ML VIAL SUBQ SCH ×3 (08:40→17:19)
[2019-02-20] MEDS: LORATADINE 10 MG TAB PO SCH (08:40)
[2019-02-20] MEDS: DIGOXIN 0.125 MG TAB PO SCH (08:40)
[2019-02-20] MEDS: guaiFENesin 600 MG TABCR PO SCH ×2 (08:40→20:39)
[2019-02-20] MEDS: FERROUS GLUCONATE 324 MG TAB PO SCH (08:40)
[2019-02-20] MEDS: CARVEDILOL 25 MG TABLET PO SCH ×2 (08:41→20:39)
[2019-02-20] MEDS: RIVAROXABAN 10 MG TAB PO SCH (08:41)
[2019-02-20] MEDS: PANTOPRAZOLE SOD 40 MG TABEC PO SCH ×2 (08:41→20:38)
[2019-02-20] MEDS: amLODIPine BESYL(*) 5 MG TAB PO SCH (08:41)
[2019-02-20] MEDS: GABAPENTIN 300 MG CAP PO SCH ×2 (08:41→20:38)
[2019-02-20] MEDS: ATORVASTATIN 10 MG TAB PO SCH (08:41)
[2019-02-20] MEDS: NYSTATIN 100,000 U/GM PWD 15GM TP SCH (09:00)
[2019-02-20] MEDS: INSULIN HUMAN LISPRO SLIDING SCALE SUBQ PRN ×3 (12:26→20:41)
[2019-02-20 15:20] VITALS: BP 152/57
[2019-02-20] MEDS: ACETAMINOPHEN 325 MG TAB PO PRN (17:26)
[2019-02-20] MEDS: [UNRECOGNIZED DRUG - OTHER] TP SCH (20:38)
[2019-02-20] MEDS: MELATONIN 3 MG TAB PO SCH (20:38)
[2019-02-20] MEDS: NITROFURANTOIN MACROCRYSTALS 50 MG PO SCH (20:39)
[2019-02-21 06:10] LABS: PLATELET COUNT, AUTOMATED 243 K/uL (150-450)
[2019-02-21] MEDS: FLUTICASONE PROP 0.05% 16 GM PRN (07:48)
[2019-02-21 07:51] VITALS: BP 160/72
[2019-02-21] MEDS: LACTOBACILLUS ACIDOPHILUS TAB PO SCH ×2 (08:00→17:00)
[2019-02-21] MEDS: MULTIVITAMINS TAB PO SCH (08:27)
[2019-02-21] MEDS: amLODIPine BESYL(*) 5 MG TAB PO SCH (08:27)
[2019-02-21] MEDS: CARVEDILOL 25 MG TABLET PO SCH ×2 (08:27→20:43)
[2019-02-21] MEDS: PANTOPRAZOLE SOD 40 MG TABEC PO SCH ×2 (08:28→20:43)
[2019-02-21] MEDS: LORATADINE 10 MG TAB PO SCH (08:28)
[2019-02-21] MEDS: ATORVASTATIN 10 MG TAB PO SCH (08:28)
[2019-02-21] MEDS: DIGOXIN 0.125 MG TAB PO SCH (08:28)
[2019-02-21] MEDS: GABAPENTIN 300 MG CAP PO SCH ×2 (08:28→20:44)
[2019-02-21] MEDS: guaiFENesin 600 MG TABCR PO SCH ×2 (08:28→20:43)
[2019-02-21] MEDS: FERROUS GLUCONATE 324 MG TAB PO SCH (08:28)
[2019-02-21] MEDS: [UNRECOGNIZED DRUG - OTHER] TP SCH ×2 (08:29→20:43)
[2019-02-21] MEDS: INSULIN HUMAN LISPRO SLIDING SCALE SUBQ PRN ×3 (08:29→20:43)
[2019-02-21] MEDS: RIVAROXABAN 10 MG TAB PO SCH (08:29)
[2019-02-21] MEDS: INSULIN HUM ISO(NPH) 100 UN/ML 3 ML VIAL SUBQ SCH ×2 (08:29→18:09)
[2019-02-21 17:00] VITALS: BP 167/68
--- NOTE | 2019-02-21 17:51 | RADIOLOGY IMAGING REPORT ---
[place] [facility] [place] NAME: Elena Saunders : 1945 MR: [id number] V: [id number] EXAM DATE: ORDERING PHYSICIAN: RAMIN THURMAN TECHNOLOGIST: Location[facility] [place] Patient: Elena Saunders : 1945 Visit/Account:[id number] Date of Sevice: 02/21/2019 CHEST SINGLE AP History: dyspnea FINDINGS: Comparison studies: 01/28/2019 chest x-ray Tubes and Lines: None. Lungs and pleura: There are small bilateral pleural effusions and/or pulmonary consolidation simila r to the previous study. Upper lung zones are well-aerated. Mediastinum: normal. Cardiac silhouette: 20 silhouette is enlarged. Evidence of previous cardiac surgery with sternal clos ure wires. Osseous structures: Unremarkable for age . IMPRESSION: Bibasilar pleural effusions and/or pulmonary consolidation. This might represent congestive heart f ailure given cardiomegaly but is a nonspecific finding and pneumonia also possible. Findings similar to the previous exam. Report Dictated By: Mehdi French MD at 02/21/2019 5:41 PM Report E-Signed By: Mehdi French MD at 02/21/2019 5:45 PM [id number]
[2019-02-21] MEDS: MELATONIN 3 MG TAB PO SCH (20:43)
[2019-02-21] MEDS: AMPICILLIN 500 MG CAP PO SCH (20:43)
[2019-02-21] MEDS: NITROFURANTOIN MACROCRYSTALS 50 MG PO SCH (20:44)
[2019-02-21] MEDS: ACETAMINOPHEN 325 MG TAB PO PRN (20:44)
[2019-02-22] MEDS: AMPICILLIN 500 MG CAP PO SCH ×4 (02:11→21:30)
[2019-02-22 08:00] VITALS: BP 159/73
[2019-02-22] MEDS: INSULIN HUM ISO(NPH) 100 UN/ML 3 ML VIAL SUBQ SCH ×2 (08:00→17:36)
[2019-02-22] MEDS: guaiFENesin 600 MG TABCR PO SCH ×2 (08:54→21:26)
[2019-02-22] MEDS: LORATADINE 10 MG TAB PO SCH (08:54)
[2019-02-22] MEDS: amLODIPine BESYL(*) 5 MG TAB PO SCH (08:54)
[2019-02-22] MEDS: LACTOBACILLUS ACIDOPHILUS TAB PO SCH ×2 (08:54→17:35)
[2019-02-22] MEDS: RIVAROXABAN 10 MG TAB PO SCH (08:55)
[2019-02-22] MEDS: CARVEDILOL 25 MG TABLET PO SCH ×2 (08:55→21:25)
[2019-02-22] MEDS: PANTOPRAZOLE SOD 40 MG TABEC PO SCH ×2 (08:55→21:25)
[2019-02-22] MEDS: ATORVASTATIN 10 MG TAB PO SCH (08:55)
[2019-02-22] MEDS: GABAPENTIN 300 MG CAP PO SCH ×2 (08:55→21:25)
[2019-02-22] MEDS: FERROUS GLUCONATE 324 MG TAB PO SCH (08:55)
[2019-02-22] MEDS: DIGOXIN 0.125 MG TAB PO SCH (08:55)
[2019-02-22] MEDS: MULTIVITAMINS TAB PO SCH (08:55)
[2019-02-22] MEDS: [UNRECOGNIZED DRUG - OTHER] TP SCH ×2 (09:00→21:26)
[2019-02-22 15:17] VITALS: BP 156/71
[2019-02-22] MEDS: NITROFURANTOIN MACROCRYSTALS 50 MG PO SCH (21:25)
[2019-02-22] MEDS: MELATONIN 3 MG TAB PO SCH (21:25)
[2019-02-22] MEDS: INSULIN HUMAN LISPRO SLIDING SCALE SUBQ PRN (21:25)
[2019-02-23] MEDS: AMPICILLIN 500 MG CAP PO SCH ×4 (02:36→20:39)
[2019-02-23 07:33] VITALS: BP 188/86
[2019-02-23] MEDS: ACETAMINOPHEN 325 MG TAB PO PRN ×2 (08:03→20:40)
[2019-02-23] MEDS: INSULIN HUM ISO(NPH) 100 UN/ML 3 ML VIAL SUBQ SCH ×2 (08:09→16:58)
[2019-02-23] MEDS: LACTOBACILLUS ACIDOPHILUS TAB PO SCH ×2 (08:11→16:58)
[2019-02-23] MEDS: [UNRECOGNIZED DRUG - OTHER] TP SCH ×2 (08:49→20:41)
[2019-02-23] MEDS: amLODIPine BESYL(*) 5 MG TAB PO SCH (08:49)
[2019-02-23] MEDS: FERROUS GLUCONATE 324 MG TAB PO SCH (08:49)
[2019-02-23] MEDS: guaiFENesin 600 MG TABCR PO SCH ×2 (08:49→20:39)
[2019-02-23] MEDS: ATORVASTATIN 10 MG TAB PO SCH (08:49)
[2019-02-23] MEDS: MULTIVITAMINS TAB PO SCH (08:49)
[2019-02-23] MEDS: PANTOPRAZOLE SOD 40 MG TABEC PO SCH ×2 (08:50→20:40)
[2019-02-23] MEDS: CARVEDILOL 25 MG TABLET PO SCH ×2 (08:50→20:40)
[2019-02-23] MEDS: GABAPENTIN 300 MG CAP PO SCH ×2 (08:50→20:40)
[2019-02-23] MEDS: RIVAROXABAN 10 MG TAB PO SCH (08:50)
[2019-02-23] MEDS: LORATADINE 10 MG TAB PO SCH (08:50)
[2019-02-23] MEDS: DIGOXIN 0.125 MG TAB PO SCH (08:50)
[2019-02-23] MEDS: FLUTICASONE PROP 0.05% 16 GM PRN (08:56)
[2019-02-23] MEDS: INSULIN HUMAN LISPRO SLIDING SCALE SUBQ PRN ×3 (12:20→20:41)
[2019-02-23 15:22] VITALS: BP 182/75
--- NOTE | 2019-02-23 17:48 | Antimicrobial Stewardship ---
Antimicrobial Stewardship Empiricly appropriate: Yes (On ampicillin 500 mg po q6h for UTI) Approriate Cultures done: Yes (NGTD) Renal/Hepatic dosing: Yes Reviewed for Drug Interaction: Yes Monitored for Toxicities: Yes Determine standard duration: 5-14 days CHRISTOPHE GONG Feb 23, 2019 17:48
[2019-02-23] MEDS: NITROFURANTOIN MACROCRYSTALS 50 MG PO SCH (20:39)
[2019-02-23] MEDS: MELATONIN 3 MG TAB PO SCH (20:39)
[2019-02-24] MEDS: AMPICILLIN 500 MG CAP PO SCH ×4 (02:00→20:44)
[2019-02-24 07:17] VITALS: BP 151/74
[2019-02-24] MEDS: CARVEDILOL 25 MG TABLET PO SCH ×2 (08:43→20:44)
[2019-02-24] MEDS: PANTOPRAZOLE SOD 40 MG TABEC PO SCH ×2 (08:43→20:44)
[2019-02-24] MEDS: GABAPENTIN 300 MG CAP PO SCH ×2 (08:43→20:44)
[2019-02-24] MEDS: MULTIVITAMINS TAB PO SCH (08:43)
[2019-02-24] MEDS: ATORVASTATIN 10 MG TAB PO SCH (08:44)
[2019-02-24] MEDS: amLODIPine BESYL(*) 5 MG TAB PO SCH (08:44)
[2019-02-24] MEDS: LACTOBACILLUS ACIDOPHILUS TAB PO SCH ×2 (08:44→16:53)
[2019-02-24] MEDS: DIGOXIN 0.125 MG TAB PO SCH (08:44)
[2019-02-24] MEDS: RIVAROXABAN 10 MG TAB PO SCH (08:44)
[2019-02-24] MEDS: LORATADINE 10 MG TAB PO SCH (08:44)
[2019-02-24] MEDS: guaiFENesin 600 MG TABCR PO SCH ×2 (08:45→20:44)
[2019-02-24] MEDS: FERROUS GLUCONATE 324 MG TAB PO SCH (08:45)
[2019-02-24] MEDS: INSULIN HUM ISO(NPH) 100 UN/ML 3 ML VIAL SUBQ SCH ×2 (08:45→17:25)
[2019-02-24] MEDS: [UNRECOGNIZED DRUG - OTHER] TP SCH ×2 (09:00→20:45)
[2019-02-24] MEDS: INSULIN HUMAN LISPRO SLIDING SCALE SUBQ PRN ×3 (12:04→20:45)
--- NOTE | 2019-02-24 15:07 | Medical Nutrition Therapy ---
Nutrition Anthropometrics Height (Inches): 67.00 Height (Calculated Centimeters: 170.000163 Weight (Pounds): 155 Weight (Calculated Kilograms): 70.398 BMI: 25.4 Arnoldo Nutrition Score: Adequate Arnoldo Nutrition Risk Score: 15 Dietary Referral Nutrition Risk Factors: Special Diet Nutrition Risk Comment: Physical Findings Physical Appearance: BMI WNL Skin Appearance Skin Appearance: Edema Edema Location Modifier: Left Edema Location: Foot Type of Edema: Degree of Edema: 2+ Gastrointestinal Symptoms GI Symtoms: Change in Bowel Pattern Tube Present: Bowel Sounds: Recent Bowel Pattern: Diarrhea Stool Characteristics: Loose Nutritional Diagnosis Nutritional Risk Acuity 2: Chronic Renal Failure, Blood Glucose > 300mg/dl Nutritional Risk Acuity 4: Modified Diet Past Medical History: CAD, HTN, T2DM, CKD-3, non-Hodkins lymphoma, CHF, chronic edema, chronic UTI, hypercholesteremia, urinary incontinence, chronic renal disease, pulmonary nodule, GI bleed, anemia, ribs (multiple fractures), hypogammagloblinemia, lumbosacral spinal surgery, tonsillectomy, and cataract extraction and CABG, T2DM, chronic afib. Nutritional Acuity: 2-Moderate Nutrition Diagnosis: Inconsistent Carb. Intake Nutrition Etiology: Physiological Causes Nutrition Problem/Etiology/Sym: Inconsistent carb intake as related to physiologic causes as evidenced by T2DM and whole blood glucose of over 300. Energy Requirement: 1812 (25kcal/kg. Pt does not have a ht at this time to assess energy needs. nursing will obtain ht on .) Protein Requirement: 73 (1 g protein/kg. Slightly elevated due to illness and age.) Fluid Requirement: 1812 (1mL/kcal) Diet Type: Diabetic Nutrition Intervention: Cont diet as ordered, Encourage intake, HS snack Nutritional Education Nutrition Education Topic: Diabetic Nutrition Learning Readiness: Little Interest Teaching Methods: Discussion Response to Teaching: Unable to return demo, Unable to comprehend Teaching Recipient: Patient Nutrition Counseling: Discussed blood glucose ranges with pt. Discussed focusing on proteins and non-starchy vegetables (foods that won't raise blood glucose). Pt stated at home her typical blood glucose before meals was ~180, and ~200 2 hrs after meals. Pt thought those ranges were good. Discussed aiming for 140-180 after meals and 70-130 before meals. Pt stated that she thought those ranges were not attainable. Nutrition Monitoring & Eval Nutrition Goals: Eat 75-100% Meal Nutritional Goals Comment: Focus on consuming protein, fats, non-starchy vegetables Nutrition Follow-Up: Good Intake Nutrition Monitoring: Blood Glucose, Intakes, Weight RD Patient Assessment Time: [address] Assessment Type: RD Re-Assessment Patient Nutrition Acuity: 2-Moderate Follow Up Date: Mar 04, 2019 Nutritional Comment: Pt admitted to [facility] from med/surg due to weakness. Recent fall and bacterial pneumonia. Hx of acute diastolic heart failure, hypercholesteremia, essential HTN, T2DM. CAD, CKD. and chronic a-fib. Pt currently on ADA diet with 50-100% intakes at meals and refusal of 1 snack. Pt has 1+ edema in both feet. Pt is taking insuling, a multivitamin, and rivaroxaban. No ht at this time, nursing will obtain ht on 02/01/49. Whole blood glucose on 01/31 was 136 and 311. On 02/01 whole blood glucose was 87. Monitor for adequate intake, and blood glucose levels. -AKSwathi 02/03/19-Visited with pt this am. Pt reports nausea, RN was aware. Discussed some ways to combat nausea. Pt currently on diabetic diet eating 86% of small to regular meals. Blood glucose remains elevated 219-258 range yesterday. Had one low BG at 60. Wt remains stable. JACKIE 02/10 Pt cont on diabetic diet, eatin 75-100% of small to regular portions. BG cont elevated in 200's with occasional 300's. Pt is recieving insulin. Hgb low at 10.4, Hct low at 32.4. Wt is stable. Will cont to monitor and encourage intake. NEHEMIAS 02/17 Pt cont on diabetic diet. Intake average 88% of small to regular portions. BG cont elevated in 200's with occasional 300's. Pt is recieving insulin. Wt is stable. Will cont to monitor and encourage intake. NEHEMIAS 02/24/19-Reviewed recent charting. Spoke with pt this afternoon about focusing on proteins/non-starchy vegetables/fats (foods that won't raise her BG). Average intake for last week ~81%. Choosing lots of high glycemic index foods. Insulin was adjusted recently. BGs running 140-257 past couple days with a couple low morning BGs of 54 and 57. Pt wt is down ~5 lbs from 02/17/19. Will continue to monitor intakes, BG, weight.REYNOLD EWING Feb 24, 2019 15:00
[2019-02-24 16:05] VITALS: BP 167/81
[2019-02-24] MEDS: MELATONIN 3 MG TAB PO SCH (20:44)
[2019-02-24] MEDS: ACETAMINOPHEN 325 MG TAB PO PRN (20:44)
[2019-02-24] MEDS: NITROFURANTOIN MACROCRYSTALS 50 MG PO SCH (20:44)
[2019-02-25] MEDS: AMPICILLIN 500 MG CAP PO SCH ×4 (02:44→19:36)
[2019-02-25 07:19] VITALS: BP 176/77
[2019-02-25] MEDS: LACTOBACILLUS ACIDOPHILUS TAB PO SCH ×2 (08:34→16:56)
[2019-02-25] MEDS: [UNRECOGNIZED DRUG - OTHER] TP SCH ×2 (08:34→20:52)
[2019-02-25] MEDS: CARVEDILOL 25 MG TABLET PO SCH ×2 (08:35→20:52)
[2019-02-25] MEDS: amLODIPine BESYL(*) 5 MG TAB PO SCH (08:36)
[2019-02-25] MEDS: DIGOXIN 0.125 MG TAB PO SCH (08:36)
[2019-02-25] MEDS: GABAPENTIN 300 MG CAP PO SCH ×2 (08:37→20:52)
[2019-02-25] MEDS: guaiFENesin 600 MG TABCR PO SCH ×2 (08:37→20:52)
[2019-02-25] MEDS: LORATADINE 10 MG TAB PO SCH (08:37)
[2019-02-25] MEDS: FERROUS GLUCONATE 324 MG TAB PO SCH (08:37)
[2019-02-25] MEDS: PANTOPRAZOLE SOD 40 MG TABEC PO SCH ×2 (08:37→20:52)
[2019-02-25] MEDS: ATORVASTATIN 10 MG TAB PO SCH (08:37)
[2019-02-25] MEDS: MULTIVITAMINS TAB PO SCH (08:37)
[2019-02-25] MEDS: INSULIN HUM ISO(NPH) 100 UN/ML 3 ML VIAL SUBQ SCH ×2 (08:38→16:56)
[2019-02-25] MEDS: RIVAROXABAN 10 MG TAB PO SCH (08:38)
[2019-02-25] MEDS: FLUTICASONE PROP 0.05% 16 GM PRN (08:48)
[2019-02-25] MEDS: INSULIN HUMAN LISPRO SLIDING SCALE SUBQ PRN ×3 (12:17→20:52)
[2019-02-25 17:00] VITALS: BP 157/76
[2019-02-25] MEDS: MELATONIN 3 MG TAB PO SCH (20:52)
[2019-02-25] MEDS: ACETAMINOPHEN 325 MG TAB PO PRN (20:52)
[2019-02-25] MEDS: NITROFURANTOIN MACROCRYSTALS 50 MG PO SCH (20:52)
[2019-02-26] MEDS: AMPICILLIN 500 MG CAP PO SCH ×2 (01:31→08:40)
[2019-02-26 07:01] LABS: PLATELET COUNT, AUTOMATED 288 K/uL (150-450)
[2019-02-26 07:16] VITALS: BP 177/84
[2019-02-26] MEDS: FLUTICASONE PROP 0.05% 16 GM PRN (08:29)
[2019-02-26] MEDS: [UNRECOGNIZED DRUG - OTHER] TP SCH ×2 (08:29→20:24)
[2019-02-26] MEDS: DIGOXIN 0.125 MG TAB PO SCH (08:30)
[2019-02-26] MEDS: ATORVASTATIN 10 MG TAB PO SCH (08:30)
[2019-02-26] MEDS: guaiFENesin 600 MG TABCR PO SCH ×2 (08:30→20:22)
[2019-02-26] MEDS: LACTOBACILLUS ACIDOPHILUS TAB PO SCH (08:30)
[2019-02-26] MEDS: CARVEDILOL 25 MG TABLET PO SCH ×2 (08:30→20:23)
[2019-02-26] MEDS: LORATADINE 10 MG TAB PO SCH (08:30)
[2019-02-26] MEDS: FERROUS GLUCONATE 324 MG TAB PO SCH (08:30)
[2019-02-26] MEDS: MULTIVITAMINS TAB PO SCH (08:30)
[2019-02-26] MEDS: PANTOPRAZOLE SOD 40 MG TABEC PO SCH ×2 (08:30→20:23)
[2019-02-26] MEDS: INSULIN HUM ISO(NPH) 100 UN/ML 3 ML VIAL SUBQ SCH ×2 (08:31→16:54)
[2019-02-26] MEDS: RIVAROXABAN 10 MG TAB PO SCH (08:31)
[2019-02-26] MEDS: amLODIPine BESYL(*) 5 MG TAB PO SCH (08:31)
[2019-02-26] MEDS: GABAPENTIN 300 MG CAP PO SCH ×2 (08:31→20:23)
[2019-02-26] MEDS: INSULIN HUMAN LISPRO SLIDING SCALE SUBQ PRN ×3 (12:25→20:24)
--- NOTE | 2019-02-26 14:16 | Hospitalist Progress Note ---
Subjective Progress Notes Subjective She has complaints of swelling to the lower extremities. She reports she has not been ambulating much. She does have some shortness of breath with exertion. Denies CP, SOB at rest, or cough. She also reports improvement in her headaches with Flonase. Patient Complains of: Cardiovascular: No: Chest Pain Respiratory: No: Shortness of Breath Physical Exam Vital Signs Date Time Temp Pulse Resp B/P (MAP) Pulse Ox O2 Delivery O2 Flow Rate FiO2 02/26/19 10:17 98 Nasal Cannula 3.0 02/26/19 08:30 74 02/26/19 07:16 97.8 14 177/84 (115) Intake and Output 02/26/19 07:02 Intake Total 840 ml Balance 840 ml Intake Oral 840 ml # Voids 10 # Bowel Movements 6 General Appearance: Alert, Awake, No Acute Distress, Afebrile Neuro: No Gross deficits Cardiovascular: Regular Rate and Rhythm Respiratory: No Respiratory Distress, Clear to Auscultation GI: Soft and Non-Tender Extremities: Warm, Perfused, Edema (3+ pitting edema to right lower extremity, 1+pitting edema to left lower extremity) Psych: Alert & Oriented X3, Appropriate Mood & Affect Result Diagram: 02/26/1961602/26/19616 Assessment and Plan Problems: (1) Blood loss Status: Acute Assessment & Plan: The patient did drop her Hgb from 9.2 to 8.2 recently. She was symptomatic with weakness and shortness of breath. Xarelto was stopped. She received one unit of PRBCs. UA showed significant hematuria and Hemoccult was positive. Protonix was started. H&H has been stable. The patient has seen Dr. Jara, urologist, in the past and did undergo cystoscopy in July 2018. I can not see that she has had a GI workup in the past, but GI bleeding is listed in her diagnoses. Will restart Xarelto while on Protonix and watch closely. If she develops recurrent or GI blood loss, will need further evaluation. (2) Bacterial pneumonia Status: Acute Assessment & Plan: Her chest x-ray showed a new right lower lobe infiltrate and her WBC was elevated. She was started on empiric treatment with IV ceftriaxone and doxycycline. Her WBC count normalized. Her oxygen requirement did improve. S he was transitioned to oral Omnicef and Doxycycline. She is still requiring supplemental O2. She did work with PT/OT during her stay on the medical floor. It was felt she would most likely need ongoing care either at home or in SNF. In the past, she has not done well at home even with home health care. Arrangements were made for transfer to [facility] for ongoing rehabilitation. (3) UTI (urinary tract infection) Status: Acute Assessment & Plan: Due to E. coli. She was on the IV antibiotics for her pneumonia as noted above. Sensitivities showed the E. coli to be sensitive to ceftriaxone. She will complete her course of therapy with the Omnicef. She will resume her prophylactic nitrofurantoin as well. (4) CHRONIC ATRIAL FIBRILLATION Status: Chronic Assessment & Plan: She is on chronic treatment with digoxin and Xarelto. Her digoxin level was in therapeutic range. Her heart rate was controlled. She did drop her Hgb (see above) so her Xarelto was stopped. She received one unit of PRBCs and her Hgb has remained stable since. Will restart Xarelto 15mg daily [facility] and monitor closely. (5) Essential hypertension Status: Chronic Assessment & Plan: She is on chronic treatment with amlodipine and carvedilol. (6) Type II diabetes mellitus Status: Chronic Assessment & Plan: She has been on chronic treatment with NPH. She was also covered with sliding scale level #2. She has been on NPH 30units twice daily and her morning fasting glucoses have been in the 50's. Her evening NPH dose will be decreased to 25units, will keep 30units in the morning. (7) Acute renal failure Status: Acute Assessment & Plan: Mild. Most likely due to dehydration. She was admitted with creatinine of 1.4. It improved with gentle IV fluids to 1.1 while on the medical floor. (8) Follicular non-Hodgkin's lymphoma Status: Chronic Assessment & Plan: Low grade non-Hodgkin lymphoma/small lymphocytic leukemia: Per the most recent [facility] from the [facility], the plan is for continued active surveillance. She has not required treatment for this. (9) CAD (coronary artery disease) Status: Chronic Assessment & Plan: The patient's last echo showed an EF of 35-40% with global hypokinesis of the L ventricle. Continue carvedilol. 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 The [facility] increased the dose of her IVIG. Her most recent level was in the low 500s with replacement. The plan was to continue this indefinitely. Unfortunately, patient did have a fall and sustained some fractures and was in and out of the hospital and rehabilitation, then followed by senior living. She had been off IVIG since about mid to late August 2018. She received a dose on [facility]. (11) Frontal headache Status: Chronic Assessment & Plan: The patient states she wakes up without a headache and then develops pain over her R eye. She says she can remember having this since grade school. Continue Flonase for relief. (12) Edema Status: Chronic Assessment & Plan: Encouraged ambulation at least once daily, elevation of feet while sitting, and apply linh hose. Continue to monitor. MARIAJOSE RODARTE FASHION EDITOR Feb 26, 2019 14:16
[2019-02-26 16:00] VITALS: BP 155/73
[2019-02-26] MEDS: MELATONIN 3 MG TAB PO SCH (20:22)
[2019-02-26] MEDS: ACETAMINOPHEN 325 MG TAB PO PRN (20:23)
[2019-02-26] MEDS: NITROFURANTOIN MACROCRYSTALS 50 MG PO SCH (20:23)
[2019-02-26] MEDS: ONDANSETRON 4 MG ODT TABDP SL PRN (20:23)
[2019-02-27 07:20] VITALS: BP 166/66
[2019-02-27] MEDS: FLUTICASONE PROP 0.05% 16 GM SCH (07:51)
[2019-02-27] MEDS: [UNRECOGNIZED DRUG - OTHER] TP SCH ×2 (07:51→20:28)
[2019-02-27] MEDS: INSULIN HUM ISO(NPH) 100 UN/ML 3 ML VIAL SUBQ SCH ×2 (07:52→16:59)
[2019-02-27] MEDS: FERROUS GLUCONATE 324 MG TAB PO SCH (07:53)
[2019-02-27] MEDS: LORATADINE 10 MG TAB PO SCH (07:53)
[2019-02-27] MEDS: CARVEDILOL 25 MG TABLET PO SCH ×2 (07:54→20:28)
[2019-02-27] MEDS: DIGOXIN 0.125 MG TAB PO SCH (07:54)
[2019-02-27] MEDS: GABAPENTIN 300 MG CAP PO SCH ×2 (07:54→20:28)
[2019-02-27] MEDS: ATORVASTATIN 10 MG TAB PO SCH (07:54)
[2019-02-27] MEDS: MULTIVITAMINS TAB PO SCH (07:54)
[2019-02-27] MEDS: PANTOPRAZOLE SOD 40 MG TABEC PO SCH ×2 (07:54→20:28)
[2019-02-27] MEDS: guaiFENesin 600 MG TABCR PO SCH ×2 (07:54→20:28)
[2019-02-27] MEDS: amLODIPine BESYL(*) 5 MG TAB PO SCH (07:55)
[2019-02-27] MEDS: RIVAROXABAN 10 MG TAB PO SCH (07:55)
[2019-02-27 16:31] VITALS: BP 150/65
[2019-02-27] MEDS: INSULIN HUMAN LISPRO SLIDING SCALE SUBQ PRN ×2 (17:00→20:29)
[2019-02-27] MEDS: ACETAMINOPHEN 325 MG TAB PO PRN (20:28)
[2019-02-27] MEDS: NITROFURANTOIN MACROCRYSTALS 50 MG PO SCH (20:28)
[2019-02-27] MEDS: MELATONIN 3 MG TAB PO SCH (20:28)
[2019-02-28 07:15] VITALS: BP 190/77
[2019-02-28] MEDS: ACETAMINOPHEN 325 MG TAB PO PRN ×2 (09:00→22:01)
[2019-02-28] MEDS: GABAPENTIN 300 MG CAP PO SCH ×2 (09:01→21:19)
[2019-02-28] MEDS: FLUTICASONE PROP 0.05% 16 GM SCH (09:01)
[2019-02-28] MEDS: guaiFENesin 600 MG TABCR PO SCH ×2 (09:01→21:19)
[2019-02-28] MEDS: MULTIVITAMINS TAB PO SCH (09:01)
[2019-02-28] MEDS: LORATADINE 10 MG TAB PO SCH (09:01)
[2019-02-28] MEDS: ATORVASTATIN 10 MG TAB PO SCH (09:01)
[2019-02-28] MEDS: CARVEDILOL 25 MG TABLET PO SCH ×2 (09:01→21:19)
[2019-02-28] MEDS: FERROUS GLUCONATE 324 MG TAB PO SCH (09:02)
[2019-02-28] MEDS: PANTOPRAZOLE SOD 40 MG TABEC PO SCH ×2 (09:02→21:19)
[2019-02-28] MEDS: RIVAROXABAN 10 MG TAB PO SCH (09:02)
[2019-02-28] MEDS: INSULIN HUM ISO(NPH) 100 UN/ML 3 ML VIAL SUBQ SCH ×2 (09:04→17:17)
[2019-02-28] MEDS: INSULIN HUMAN LISPRO SLIDING SCALE SUBQ PRN ×4 (09:04→21:19)
[2019-02-28] MEDS: [UNRECOGNIZED DRUG - OTHER] TP SCH ×2 (09:05→21:18)
[2019-02-28] MEDS: DIGOXIN 0.125 MG TAB PO SCH (09:06)
[2019-02-28] MEDS: amLODIPine BESYL(*) 5 MG TAB PO SCH (09:09)
[2019-02-28 15:08] VITALS: BP 168/73
[2019-02-28] MEDS: MELATONIN 3 MG TAB PO SCH (21:19)
[2019-02-28] MEDS: TRIMETH/SULFA DS 160-800MG TAB PO SCH (21:19)
[2019-03-01 08:26] VITALS: BP 164/72
[2019-03-01] MEDS: amLODIPine BESYL(*) 5 MG TAB PO SCH (08:30)
[2019-03-01] MEDS: TRIMETH/SULFA DS 160-800MG TAB PO SCH ×2 (08:30→20:44)
[2019-03-01] MEDS: GABAPENTIN 300 MG CAP PO SCH ×2 (08:30→20:44)
[2019-03-01] MEDS: ATORVASTATIN 10 MG TAB PO SCH (08:30)
[2019-03-01] MEDS: LORATADINE 10 MG TAB PO SCH (08:30)
[2019-03-01] MEDS: PANTOPRAZOLE SOD 40 MG TABEC PO SCH ×2 (08:30→20:44)
[2019-03-01] MEDS: MULTIVITAMINS TAB PO SCH (08:30)
[2019-03-01] MEDS: guaiFENesin 600 MG TABCR PO SCH ×2 (08:31→20:44)
[2019-03-01] MEDS: FERROUS GLUCONATE 324 MG TAB PO SCH (08:31)
[2019-03-01] MEDS: FLUTICASONE PROP 0.05% 16 GM SCH (08:31)
[2019-03-01] MEDS: CARVEDILOL 25 MG TABLET PO SCH ×2 (08:31→20:44)
[2019-03-01] MEDS: RIVAROXABAN 10 MG TAB PO SCH (08:31)
[2019-03-01] MEDS: DIGOXIN 0.125 MG TAB PO SCH (08:31)
[2019-03-01] MEDS: INSULIN HUM ISO(NPH) 100 UN/ML 3 ML VIAL SUBQ SCH ×2 (08:32→17:26)
[2019-03-01] MEDS: INSULIN HUM LISPRO 100 UN/ML 3 ML VIAL SUBQ PRN ×4 (08:32→20:45)
[2019-03-01] MEDS: [UNRECOGNIZED DRUG - OTHER] TP SCH ×2 (08:36→20:44)
[2019-03-01 11:45] VITALS: BP 159/60
[2019-03-01] MEDS ORDERED: ALBUTEROL 8 GM INHALER INH PRN (14:05)
[2019-03-01 15:35] VITALS: BP 159/62
[2019-03-01] MEDS: ACETAMINOPHEN 325 MG TAB PO PRN (20:44)
[2019-03-01] MEDS: MELATONIN 3 MG TAB PO SCH (20:44)
[2019-03-02 08:31] VITALS: BP 145/68
[2019-03-02] MEDS: [UNRECOGNIZED DRUG - OTHER] TP SCH ×2 (08:37→21:13)
[2019-03-02] MEDS: FLUTICASONE PROP 0.05% 16 GM SCH (08:38)
[2019-03-02] MEDS: ATORVASTATIN 10 MG TAB PO SCH (08:39)
[2019-03-02] MEDS: DIGOXIN 0.125 MG TAB PO SCH (08:39)
[2019-03-02] MEDS: FERROUS GLUCONATE 324 MG TAB PO SCH (08:39)
[2019-03-02] MEDS: PANTOPRAZOLE SOD 40 MG TABEC PO SCH ×2 (08:39→21:11)
[2019-03-02] MEDS: TRIMETH/SULFA DS 160-800MG TAB PO SCH ×2 (08:39→21:11)
[2019-03-02] MEDS: MULTIVITAMINS TAB PO SCH (08:39)
[2019-03-02] MEDS: CARVEDILOL 25 MG TABLET PO SCH ×2 (08:39→21:11)
[2019-03-02] MEDS: guaiFENesin 600 MG TABCR PO SCH ×2 (08:39→21:11)
[2019-03-02] MEDS: GABAPENTIN 300 MG CAP PO SCH ×2 (08:40→21:11)
[2019-03-02] MEDS: RIVAROXABAN 10 MG TAB PO SCH (08:40)
[2019-03-02] MEDS: INSULIN HUM ISO(NPH) 100 UN/ML 3 ML VIAL SUBQ SCH ×2 (08:40→17:17)
[2019-03-02] MEDS: amLODIPine BESYL(*) 5 MG TAB PO SCH (08:40)
[2019-03-02] MEDS: LORATADINE 10 MG TAB PO SCH (08:40)
[2019-03-02] MEDS: INSULIN HUM LISPRO 100 UN/ML 3 ML VIAL SUBQ PRN ×2 (12:30→21:12)
--- NOTE | 2019-03-02 14:36 | Consultant Pharmacy Review ---
Research/Program Director Review Medication Review Do All Mecications have a Diag: Yes Beers Criteria Medication 2014 Sliding Scale Insulin: Slidin Scale Insulin (HX OF DM2) Other General Cautions Patient is due for a 30 day review of medications. No concerns at this time except that she has recently been started on Bactrim and is on Digoxin. Levels of digoxin were checked 2 days after start of bactrim to ensure no toxic rise of Digoxin. Patient level is WNL. Bactrim should be stopped after 3 days for uncomplicated UTI and patient has been asymptomatic for ~24hrs with no identifiable organism in UA. Blood pressure appears to be stable and WNL on current therapy regimen. Pneumococcal Vaccine HX Pneumo Vac ([id number]): Yes (2014) HX Pneumo Vac (Pneumovax): Yes (2017) Notified? Notified?: No NIMA SILVA Mar 02, 2019 14:36
[2019-03-02 16:30] VITALS: BP 165/67
[2019-03-02 19:45] VITALS: BP 162/70
[2019-03-02] MEDS: MELATONIN 3 MG TAB PO SCH (21:12)
[2019-03-02] MEDS: ACETAMINOPHEN 325 MG TAB PO PRN (21:12)
[2019-03-03 07:30] VITALS: BP 166/73
[2019-03-03] MEDS: [UNRECOGNIZED DRUG - OTHER] TP SCH ×2 (08:28→21:00)
[2019-03-03] MEDS: FLUTICASONE PROP 0.05% 16 GM SCH (08:28)
[2019-03-03] MEDS: ATORVASTATIN 10 MG TAB PO SCH (08:29)
[2019-03-03] MEDS: guaiFENesin 600 MG TABCR PO SCH ×2 (08:29→21:10)
[2019-03-03] MEDS: CARVEDILOL 25 MG TABLET PO SCH ×2 (08:31→21:11)
[2019-03-03] MEDS: DIGOXIN 0.125 MG TAB PO SCH (08:31)
[2019-03-03] MEDS: MULTIVITAMINS TAB PO SCH (08:31)
[2019-03-03] MEDS: PANTOPRAZOLE SOD 40 MG TABEC PO SCH ×2 (08:31→21:10)
[2019-03-03] MEDS: amLODIPine BESYL(*) 5 MG TAB PO SCH (08:31)
[2019-03-03] MEDS: TRIMETH/SULFA DS 160-800MG TAB PO SCH ×2 (08:31→21:11)
[2019-03-03] MEDS: FERROUS GLUCONATE 324 MG TAB PO SCH (08:31)
[2019-03-03] MEDS: LORATADINE 10 MG TAB PO SCH (08:31)
[2019-03-03] MEDS: GABAPENTIN 300 MG CAP PO SCH ×2 (08:31→21:11)
[2019-03-03] MEDS: RIVAROXABAN 10 MG TAB PO SCH (08:31)
[2019-03-03] MEDS: INSULIN HUM LISPRO 100 UN/ML 3 ML VIAL SUBQ PRN ×4 (08:32→21:11)
[2019-03-03] MEDS: INSULIN HUM ISO(NPH) 100 UN/ML 3 ML VIAL SUBQ SCH ×2 (08:32→17:31)
--- NOTE | 2019-03-03 15:12 | Medical Nutrition Therapy ---
Nutrition Anthropometrics Height (Inches): 67.00 Height (Calculated Centimeters: 170.028780 Weight (Pounds): 160 Weight (Calculated Kilograms): 72.631 BMI: 25.4 Arnoldo Nutrition Score: Adequate Arnoldo Nutrition Risk Score: 15 Dietary Referral Nutrition Risk Factors: Special Diet Nutrition Risk Comment: Physical Findings Physical Appearance: BMI WNL Skin Appearance Skin Appearance: Edema Edema Location Modifier: Right Edema Location: Foot Type of Edema: Degree of Edema: 2+ Gastrointestinal Symptoms GI Symtoms: Change in Bowel Pattern Tube Present: Bowel Sounds: Recent Bowel Pattern: Diarrhea Stool Characteristics: Loose Nutritional Diagnosis Nutritional Risk Acuity 2: Chronic Renal Failure, Blood Glucose > 300mg/dl Nutritional Risk Acuity 4: Modified Diet Past Medical History: CAD, HTN, T2DM, CKD-3, non-Hodkins lymphoma, CHF, chronic edema, chronic UTI, hypercholesteremia, urinary incontinence, chronic renal disease, pulmonary nodule, GI bleed, anemia, ribs (multiple fractures), hypogammagloblinemia, lumbosacral spinal surgery, tonsillectomy, and cataract extraction and CABG, T2DM, chronic afib. Nutritional Acuity: 2-Moderate Nutrition Diagnosis: Inconsistent Carb. Intake Nutrition Etiology: Physiological Causes Nutrition Problem/Etiology/Sym: Inconsistent carb intake as related to physiologic causes as evidenced by T2DM and whole blood glucose of over 300. Energy Requirement: 1812 (25kcal/kg. Pt does not have a ht at this time to assess energy needs. nursing will obtain ht on .) Protein Requirement: 73 (1 g protein/kg. Slightly elevated due to illness and age.) Fluid Requirement: 1812 (1mL/kcal) Diet Type: Diabetic Nutrition Intervention: Cont diet as ordered, Encourage intake, HS snack Nutrition Monitoring & Eval Nutrition Goals: Eat 75-100% Meal Nutrition Follow-Up: Good Intake Nutrition Monitoring: BG, Intakes, Wt RD Patient Assessment Time: [address] Assessment Type: RD Re-Assessment Patient Nutrition Acuity: 2-Moderate Follow Up Date: Mar 11, 2019 Nutritional Comment: Pt admitted to [facility] from med/surg due to weakness. Recent fall and bacterial pneumonia. Hx of acute diastolic heart failure, hypercholesteremia, essential HTN, T2DM. CAD, CKD. and chronic a-fib. Pt currently on ADA diet with 50-100% intakes at meals and refusal of 1 snack. Pt has 1+ edema in both feet. Pt is taking insuling, a multivitamin, and rivaroxaban. No ht at this time, nursing will obtain ht on 02/01/49. Whole blood glucose on 01/31 was 136 and 311. On 02/01 whole blood glucose was 87. Monitor for adequate intake, and blood glucose levels. -AKSwathi 02/03/19-Visited with pt this am. Pt reports nausea, RN was aware. Discussed some ways to combat nausea. Pt currently on diabetic diet eating 86% of small to regular meals. Blood glucose remains elevated 219-258 range yesterday. Had one low BG at 60. Wt remains stable. JACKIE 02/10 Pt cont on diabetic diet, eatin 75-100% of small to regular portions. BG cont elevated in 200's with occasional 300's. Pt is recieving insulin. Hgb low at 10.4, Hct low at 32.4. Wt is stable. Will cont to monitor and encourage intake. BK 02/17 Pt cont on diabetic diet. Intake average 88% of small to regular portions. BG cont elevated in 200's with occasional 300's. Pt is recieving insulin. Wt is stable. Will cont to monitor and encourage intake. NEHEMIAS 02/24/19-Reviewed recent charting. Spoke with pt this afternoon about focusing on proteins/non-starchy vegetables/fats (foods that won't raise her BG). Average intake for last week ~81%. Choosing lots of high glycemic index foods. Insulin was adjusted recently. BGs running 140-257 past couple days with a couple low morning BGs of 54 and 57. Pt wt is down ~5 lbs from 02/17/19. Will continue to monitor intakes, BG, weight.JACKIE 03/03/19: Pt eating well mostly 100% of meals. Continuing to order lots of high glycemic foods at meals. Wt is fluctuating, current wt 159 lbs previous wt on 02/24/19 was 159 lbs. Pt does have significant edema RLE 2+, LLE 1+, and R Foot 2+. Average pre-prandial blood glucose since last assessment wa 228. Post prandial average blood glucose was 255. Pt recieving humalog and NPH 30 units in the am, and 25 units at 5:00pm. Will continue to monitor intakes, weights, blood glucose, pt desire for nutrition education.REYNOLD EWING Mar 03, 2019 15:12
[2019-03-03 16:16] VITALS: BP 153/66
[2019-03-03] MEDS: ACETAMINOPHEN 325 MG TAB PO PRN (20:13)
[2019-03-03 21:06] VITALS: BP 169/66
[2019-03-03] MEDS: MELATONIN 3 MG TAB PO SCH (21:11)
[2019-03-04 07:45] VITALS: BP 154/74
[2019-03-04] MEDS: [UNRECOGNIZED DRUG - OTHER] TP SCH ×2 (08:42→20:39)
[2019-03-04] MEDS: FLUTICASONE PROP 0.05% 16 GM SCH (08:42)
[2019-03-04] MEDS: RIVAROXABAN 10 MG TAB PO SCH (08:43)
[2019-03-04] MEDS: amLODIPine BESYL(*) 5 MG TAB PO SCH (08:43)
[2019-03-04] MEDS: GABAPENTIN 300 MG CAP PO SCH ×2 (08:43→20:39)
[2019-03-04] MEDS: CARVEDILOL 25 MG TABLET PO SCH ×2 (08:43→20:38)
[2019-03-04] MEDS: TRIMETH/SULFA DS 160-800MG TAB PO SCH ×2 (08:43→20:39)
[2019-03-04] MEDS: PANTOPRAZOLE SOD 40 MG TABEC PO SCH ×2 (08:43→20:38)
[2019-03-04] MEDS: ATORVASTATIN 10 MG TAB PO SCH (08:43)
[2019-03-04] MEDS: MULTIVITAMINS TAB PO SCH (08:43)
[2019-03-04] MEDS: guaiFENesin 600 MG TABCR PO SCH ×2 (08:44→20:39)
[2019-03-04] MEDS: DIGOXIN 0.125 MG TAB PO SCH (08:44)
[2019-03-04] MEDS: LORATADINE 10 MG TAB PO SCH (08:44)
[2019-03-04] MEDS: FERROUS GLUCONATE 324 MG TAB PO SCH (08:44)
[2019-03-04] MEDS: INSULIN HUM ISO(NPH) 100 UN/ML 3 ML VIAL SUBQ SCH ×2 (08:45→17:00)
[2019-03-04] MEDS: INSULIN HUM LISPRO 100 UN/ML 3 ML VIAL SUBQ PRN ×3 (12:20→20:40)
[2019-03-04 16:43] VITALS: BP 152/80
[2019-03-04] MEDS: MELATONIN 3 MG TAB PO SCH (20:38)
[2019-03-04] MEDS: ACETAMINOPHEN 325 MG TAB PO PRN (20:39)
[2019-03-05 07:45] VITALS: BP 176/80
[2019-03-05] MEDS: FLUTICASONE PROP 0.05% 16 GM SCH (08:36)
[2019-03-05] MEDS: [UNRECOGNIZED DRUG - OTHER] TP SCH (08:36)
[2019-03-05] MEDS: LORATADINE 10 MG TAB PO SCH (08:37)
[2019-03-05] MEDS: ATORVASTATIN 10 MG TAB PO SCH (08:37)
[2019-03-05] MEDS: guaiFENesin 600 MG TABCR PO SCH (08:37)
[2019-03-05] MEDS: CARVEDILOL 25 MG TABLET PO SCH ×2 (08:37→20:41)
[2019-03-05] MEDS: DIGOXIN 0.125 MG TAB PO SCH (08:37)
[2019-03-05] MEDS: FERROUS GLUCONATE 324 MG TAB PO SCH (08:38)
[2019-03-05] MEDS: PANTOPRAZOLE SOD 40 MG TABEC PO SCH ×2 (08:38→20:41)
[2019-03-05] MEDS: TRIMETH/SULFA DS 160-800MG TAB PO SCH (08:38)
[2019-03-05] MEDS: amLODIPine BESYL(*) 5 MG TAB PO SCH (08:38)
[2019-03-05] MEDS: GABAPENTIN 300 MG CAP PO SCH ×2 (08:38→20:41)
[2019-03-05] MEDS: MULTIVITAMINS TAB PO SCH (08:38)
[2019-03-05] MEDS: INSULIN HUM ISO(NPH) 100 UN/ML 3 ML VIAL SUBQ SCH ×2 (08:39→16:34)
[2019-03-05] MEDS: INSULIN HUM LISPRO 100 UN/ML 3 ML VIAL SUBQ PRN ×3 (08:39→20:42)
[2019-03-05] MEDS: RIVAROXABAN 10 MG TAB PO SCH (08:39)
[2019-03-05] MEDS ORDERED: LORATADINE 10 MG TAB PO PRN (10:30)
[2019-03-05] MEDS ORDERED: [UNRECOGNIZED DRUG - OTHER] TP PRN (10:40)
--- NOTE | 2019-03-05 10:44 | Hospitalist Progress Note ---
Subjective Progress Notes Subjective This patient was admitted for UTI and weakness. She has not had any acute issues. Patient Complains of: Cardiovascular: No: Chest Pain Respiratory: No: Shortness of Breath Physical Exam Vital Signs Date Time Temp Pulse Resp B/P (MAP) Pulse Ox O2 Delivery O2 Flow Rate FiO2 03/05/19 08:37 69 03/05/19 07:45 95 Nasal Cannula 3.5 03/05/19 07:45 98.5 18 176/80 (112) Intake and Output 03/05/19 07:02 Intake Total 1580 ml Balance 1580 ml Intake Oral 1580 ml # Voids 8 # Bowel Movements 2 Cardiovascular: Regular Rate and Rhythm Respiratory: Clear to Auscultation Assessment and Plan Problems: (1) Blood loss Status: Acute Assessment & Plan: Her Hgb has been relatively stable on most recent labs. She is back on Xarelto, and has not had any gross bleeding. (2) Bacterial pneumonia Status: Acute Assessment & Plan: Her chest x-ray showed a new right lower lobe infiltrate and her WBC was elevated. She She has completed a full course of antibiotics for this. (3) UTI (urinary tract infection) Status: Acute Assessment & Plan: She was placed back on Bactrim a few days ago, but that culture was contaminated. We stopped the Bactrim and placed her back on her prophylactic Macrodantin (4) CHRONIC ATRIAL FIBRILLATION Status: Chronic Assessment & Plan: She is on chronic treatment with digoxin and Xarelto. (5) Essential hypertension Status: Chronic Assessment & Plan: She is on chronic treatment with amlodipine and carvedilol. (6) Type II diabetes mellitus Status: Chronic Assessment & Plan: She has been on chronic treatment with NPH. She was also covered with sliding scale level #2. (7) Acute renal failure Status: Acute Assessment & Plan: Mild. Most likely due to dehydration. She was admitted with creatinine of 1.4. It improved with gentle IV fluids to 1.1 while on the medical floor. (8) Follicular non-Hodgkin's lymphoma Status: Chronic Assessment & Plan: Low grade non-Hodgkin lymphoma/small lymphocytic leukemia: Per the most recent note from the [facility], the plan is for continued active surveillance. She has not required treatment for this. (9) CAD (coronary artery disease) Status: Chronic Assessment & Plan: The patient's last echo showed an EF of 35-40% with global hypokinesis of the L ventricle. Continue carvedilol. 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 [facility] increased the dose of her IVIG. Her most recent level was in the low 500s with replacement. The plan was to continue this indefinitely. Unfortunately, patient did have a fall and sustained some fractures and was in and out of the hospital and rehabilitation, then [facility]. She had been off IVIG since about mid to late August 2018. She received a dose on [facility]. (11) Frontal headache Status: Chronic Assessment & Plan: The patient states she wakes up without a headache and then develops pain over her R eye. She says she can remember having this since grade school. Continue Flonase for relief. (12) Edema Status: Chronic Assessment & Plan: Encouraged ambulation at least once daily, elevation of feet while sitting, and apply linh hose. Continue to monitor. SANJU ESCALANTE DO Mar 05, 2019 10:44
[2019-03-05 20:10] VITALS: BP 168/68
[2019-03-05] MEDS: NITROFURANTOIN MACROCRYSTALS 50 MG PO SCH (20:41)
[2019-03-05] MEDS: MELATONIN 3 MG TAB PO SCH (20:41)
[2019-03-05] MEDS: ACETAMINOPHEN 325 MG TAB PO PRN (20:41)
[2019-03-06 07:26] VITALS: BP 153/76
[2019-03-06] MEDS: FLUTICASONE PROP 0.05% 16 GM SCH (08:38)
[2019-03-06] MEDS: CARVEDILOL 25 MG TABLET PO SCH ×2 (08:38→20:35)
[2019-03-06] MEDS: MULTIVITAMINS TAB PO SCH (08:39)
[2019-03-06] MEDS: PANTOPRAZOLE SOD 40 MG TABEC PO SCH ×2 (08:39→20:35)
[2019-03-06] MEDS: DIGOXIN 0.125 MG TAB PO SCH (08:39)
[2019-03-06] MEDS: FERROUS GLUCONATE 324 MG TAB PO SCH (08:39)
[2019-03-06] MEDS: amLODIPine BESYL(*) 5 MG TAB PO SCH (08:39)
[2019-03-06] MEDS: GABAPENTIN 300 MG CAP PO SCH ×2 (08:39→20:35)
[2019-03-06] MEDS: ATORVASTATIN 10 MG TAB PO SCH (08:39)
[2019-03-06] MEDS: INSULIN HUM ISO(NPH) 100 UN/ML 3 ML VIAL SUBQ SCH ×2 (08:40→16:56)
[2019-03-06] MEDS: RIVAROXABAN 10 MG TAB PO SCH (08:40)
[2019-03-06] MEDS: INSULIN HUM LISPRO 100 UN/ML 3 ML VIAL SUBQ PRN ×2 (16:56→20:34)
[2019-03-06 17:05] VITALS: BP 166/72
[2019-03-06] MEDS: NITROFURANTOIN MACROCRYSTALS 50 MG PO SCH (20:35)
[2019-03-06] MEDS: ACETAMINOPHEN 325 MG TAB PO PRN (20:35)
[2019-03-06] MEDS: MELATONIN 3 MG TAB PO SCH (20:35)
[2019-03-07 07:15] VITALS: BP 165/73
[2019-03-07] MEDS: PANTOPRAZOLE SOD 40 MG TABEC PO SCH ×2 (08:52→21:35)
[2019-03-07] MEDS: RIVAROXABAN 10 MG TAB PO SCH (08:52)
[2019-03-07] MEDS: GABAPENTIN 300 MG CAP PO SCH ×2 (08:52→21:35)
[2019-03-07] MEDS: FLUTICASONE PROP 0.05% 16 GM SCH (08:53)
[2019-03-07] MEDS: ATORVASTATIN 10 MG TAB PO SCH (08:53)
[2019-03-07] MEDS: DIGOXIN 0.125 MG TAB PO SCH (08:53)
[2019-03-07] MEDS: amLODIPine BESYL(*) 5 MG TAB PO SCH (08:53)
[2019-03-07] MEDS: MULTIVITAMINS TAB PO SCH (08:53)
[2019-03-07] MEDS: FERROUS GLUCONATE 324 MG TAB PO SCH (08:53)
[2019-03-07] MEDS: CARVEDILOL 25 MG TABLET PO SCH ×2 (08:53→21:35)
[2019-03-07] MEDS: INSULIN HUM ISO(NPH) 100 UN/ML 3 ML VIAL SUBQ SCH ×2 (08:54→17:31)
[2019-03-07] MEDS: INSULIN HUM LISPRO 100 UN/ML 3 ML VIAL SUBQ PRN ×2 (12:38→21:44)
[2019-03-07 15:50] VITALS: BP 155/75
[2019-03-07] MEDS: ACETAMINOPHEN 325 MG TAB PO PRN (21:35)
[2019-03-07] MEDS: MELATONIN 3 MG TAB PO SCH (21:35)
[2019-03-07] MEDS: NITROFURANTOIN MACROCRYSTALS 50 MG PO SCH (21:35)
[2019-03-08 07:30] VITALS: BP 170/75
[2019-03-08] MEDS: FERROUS GLUCONATE 324 MG TAB PO SCH (08:43)
[2019-03-08] MEDS: FLUTICASONE PROP 0.05% 16 GM SCH (08:43)
[2019-03-08] MEDS: DIGOXIN 0.125 MG TAB PO SCH (08:44)
[2019-03-08] MEDS: MULTIVITAMINS TAB PO SCH (08:44)
[2019-03-08] MEDS: CARVEDILOL 25 MG TABLET PO SCH ×2 (08:44→21:28)
[2019-03-08] MEDS: ATORVASTATIN 10 MG TAB PO SCH (08:44)
[2019-03-08] MEDS: PANTOPRAZOLE SOD 40 MG TABEC PO SCH ×2 (08:44→21:28)
[2019-03-08] MEDS: GABAPENTIN 300 MG CAP PO SCH ×2 (08:44→21:28)
[2019-03-08] MEDS: INSULIN HUM ISO(NPH) 100 UN/ML 3 ML VIAL SUBQ SCH ×2 (08:45→17:20)
[2019-03-08] MEDS: amLODIPine BESYL(*) 5 MG TAB PO SCH (08:45)
[2019-03-08] MEDS: RIVAROXABAN 10 MG TAB PO SCH (08:45)
[2019-03-08 15:05] VITALS: BP 163/70
[2019-03-08] MEDS: INSULIN HUM LISPRO 100 UN/ML 3 ML VIAL SUBQ PRN ×2 (17:18→21:29)
[2019-03-08] MEDS: MELATONIN 3 MG TAB PO SCH (21:28)
[2019-03-08] MEDS: ACETAMINOPHEN 325 MG TAB PO PRN (21:28)
[2019-03-08] MEDS: NITROFURANTOIN MACROCRYSTALS 50 MG PO SCH (21:28)
[2019-03-09 07:35] VITALS: BP 152/83
[2019-03-09] MEDS: FLUTICASONE PROP 0.05% 16 GM SCH (08:27)
[2019-03-09] MEDS: MULTIVITAMINS TAB PO SCH (08:28)
[2019-03-09] MEDS: ATORVASTATIN 10 MG TAB PO SCH (08:28)
[2019-03-09] MEDS: RIVAROXABAN 10 MG TAB PO SCH (08:28)
[2019-03-09] MEDS: GABAPENTIN 300 MG CAP PO SCH ×2 (08:29→21:09)
[2019-03-09] MEDS: CARVEDILOL 25 MG TABLET PO SCH ×2 (08:29→21:09)
[2019-03-09] MEDS: PANTOPRAZOLE SOD 40 MG TABEC PO SCH ×2 (08:29→21:09)
[2019-03-09] MEDS: FERROUS GLUCONATE 324 MG TAB PO SCH (08:29)
[2019-03-09] MEDS: DIGOXIN 0.125 MG TAB PO SCH (08:29)
[2019-03-09] MEDS: amLODIPine BESYL(*) 5 MG TAB PO SCH (08:29)
[2019-03-09] MEDS: INSULIN HUM ISO(NPH) 100 UN/ML 3 ML VIAL SUBQ SCH ×2 (08:30→17:33)
[2019-03-09 16:55] VITALS: BP 175/79
[2019-03-09] MEDS: INSULIN HUM LISPRO 100 UN/ML 3 ML VIAL SUBQ PRN ×2 (17:33→21:10)
[2019-03-09] MEDS: MELATONIN 3 MG TAB PO SCH (21:09)
[2019-03-09] MEDS: NITROFURANTOIN MACROCRYSTALS 50 MG PO SCH (21:09)
[2019-03-09] MEDS: ACETAMINOPHEN 325 MG TAB PO PRN (21:09)
[2019-03-10 07:40] VITALS: BP 155/64
[2019-03-10] MEDS: amLODIPine BESYL(*) 5 MG TAB PO SCH (08:35)
[2019-03-10] MEDS: DIGOXIN 0.125 MG TAB PO SCH (08:35)
[2019-03-10] MEDS: FERROUS GLUCONATE 324 MG TAB PO SCH (08:35)
[2019-03-10] MEDS: CARVEDILOL 25 MG TABLET PO SCH ×2 (08:35→20:48)
[2019-03-10] MEDS: GABAPENTIN 300 MG CAP PO SCH ×2 (08:35→20:49)
[2019-03-10] MEDS: MULTIVITAMINS TAB PO SCH (08:35)
[2019-03-10] MEDS: ATORVASTATIN 10 MG TAB PO SCH (08:35)
[2019-03-10] MEDS: PANTOPRAZOLE SOD 40 MG TABEC PO SCH (08:36)
[2019-03-10] MEDS: INSULIN HUM ISO(NPH) 100 UN/ML 3 ML VIAL SUBQ SCH ×2 (08:36→17:27)
[2019-03-10] MEDS: RIVAROXABAN 10 MG TAB PO SCH (08:36)
[2019-03-10] MEDS: FLUTICASONE PROP 0.05% 16 GM SCH (08:37)
[2019-03-10] MEDS: INSULIN HUM LISPRO 100 UN/ML 3 ML VIAL SUBQ PRN ×3 (12:11→20:48)
--- NOTE | 2019-03-10 12:53 | Hospitalist Progress Note ---
Subjective Progress Notes Subjective Doing well on daily Flonase. No further sinus headaches. Physical Exam Vital Signs Date Time Temp Pulse Resp B/P (MAP) Pulse Ox O2 Delivery O2 Flow Rate FiO2 03/10/19 08:35 66 03/10/19 07:40 98.4 17 155/64 (94) 99 Nasal Cannula 3.0 Intake and Output 03/10/19 07:03 Intake Total 600 ml Balance 600 ml Intake Oral 600 ml # Voids 11 # Bowel Movements 3 General Appearance: Alert, Awake, No Acute Distress Eyes: PERRLA Cardiovascular: Other (Irregularly irregular.) Respiratory: Clear to Auscultation GI: Soft and Non-Tender Extremities: Warm, Perfused, Edema (R>L) Integumentary: Skin Intact without Lesion / Mass Psych: Appropriate Mood & Affect Assessment and Plan Problems: (1) Blood loss Status: Acute Assessment & Plan: Her Hgb has been relatively stable on most recent labs. She is back on Xarelto, and has not had any gross bleeding. Will recheck labs in the am. Will decrease Protonix to once daily. (2) Bacterial pneumonia Status: Acute Assessment & Plan: Her chest x-ray showed a new right lower lobe infiltrate and her WBC was elevated. She She has completed a full course of antibiotics for this. (3) UTI (urinary tract infection) Status: Acute Assessment & Plan: She was placed back on Bactrim a few days ago, but that culture was contaminated. We stopped the Bactrim and placed her back on her prophylactic Macrodantin (4) CHRONIC ATRIAL FIBRILLATION Status: Chronic Assessment & Plan: She is on chronic treatment with digoxin and Xarelto. (5) Essential hypertension Status: Chronic Assessment & Plan: She is on chronic treatment with amlodipine and carvedilol. (6) Type II diabetes mellitus Status: Chronic Assessment & Plan: She has been on chronic treatment with NPH. She was also covered with sliding scale level #2. (7) Acute renal failure Status: Acute Assessment & Plan: Mild. Most likely due to dehydration. She was admitted with creatinine of 1.4. It improved with gentle IV fluids to 1.1 while on the medical floor. (8) Follicular non-Hodgkin's lymphoma Status: Chronic Assessment & Plan: Low grade non-Hodgkin lymphoma/small lymphocytic leukemia: Per the most recent note from the [facility], the plan is for continued active surveillance. She has not required treatment for this. (9) CAD (coronary artery disease) Status: Chronic Assessment & Plan: The patient's last echo showed an EF of 35-40% with global hypokinesis of the L ventricle. Continue carvedilol. 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 The [facility] increased the dose of her IVIG. Her most recent level was in the low 500s with repla cement. The plan was to continue this indefinitely. Unfortunately, patient did have a fall and sustained some fractures and was in and out of the hospital and rehabilitation, then followed by shelter. She had been off IVIG since about mid to late August 2018. She received a dose on [facility]. (11) Frontal headache Status: Chronic Assessment & Plan: The patient states she wakes up without a headache and then develops pain over her R eye. She says she can remember having this since grade school. Continue Flonase for relief. Headaches have been much improved on the Flonase. (12) Edema Status: Chronic Assessment & Plan: Encouraged ambulation at least once daily, elevation of feet while sitting, and apply linh hose. Continue to monitor. Time Spent on Plan of Care: < 30 min YARELI THURMAN MD Mar 10, 2019 12:53
--- NOTE | 2019-03-10 15:28 | Medical Nutrition Therapy ---
Nutrition Anthropometrics Height (Inches): 67.00 Height (Calculated Centimeters: 170.168509 Weight (Pounds): 155 Weight (Calculated Kilograms): 70.398 BMI: 25.4 Arnoldo Nutrition Score: Adequate Arnoldo Nutrition Risk Score: 15 Dietary Referral Nutrition Risk Factors: Special Diet Nutrition Risk Comment: Physical Findings Physical Appearance: BMI WNL Skin Appearance Skin Appearance: Edema Edema Location Modifier: Right Edema Location: Foot Type of Edema: Degree of Edema: 1+ Gastrointestinal Symptoms GI Symtoms: Change in Bowel Pattern Tube Present: Bowel Sounds: Recent Bowel Pattern: Diarrhea Stool Characteristics: Loose Nutritional Diagnosis Nutritional Risk Acuity 2: Chronic Renal Failure, Blood Glucose > 300mg/dl Nutritional Risk Acuity 4: Modified Diet Past Medical History: CAD, HTN, T2DM, CKD-3, non-Hodkins lymphoma, CHF, chronic edema, chronic UTI, hypercholesteremia, urinary incontinence, chronic renal disease, pulmonary nodule, GI bleed, anemia, ribs (multiple fractures), hypogammagloblinemia, lumbosacral spinal surgery, tonsillectomy, and cataract extraction and CABG, T2DM, chronic afib. Nutritional Acuity: 2-Moderate Nutrition Diagnosis: Inconsistent Carb. Intake Nutrition Etiology: Physiological Causes Nutrition Problem/Etiology/Sym: Inconsistent carb intake as related to physiologic causes as evidenced by T2DM and whole blood glucose of over 300. Energy Requirement: 1812 (25kcal/kg. Pt does not have a ht at this time to assess energy needs. nursing will obtain ht on .) Protein Requirement: 73 (1 g protein/kg. Slightly elevated due to illness and age.) Fluid Requirement: 1812 (1mL/kcal) Diet Type: Diabetic Nutrition Intervention: Cont diet as ordered, Encourage intake, HS snack Nutrition Monitoring & Eval Nutrition Goals: Eat 75-100% Meal Nutrition Monitoring: Intake, Weight, BG RD Patient Assessment Time: [address] Assessment Type: RD Re-Assessment Patient Nutrition Acuity: 2-Moderate Follow Up Date: Mar 18, 2019 Nutritional Comment: [facility] med/[facility]urg due to weakness. Recent fall and bacterial pneumonia. Hx of acute diastolic heart failure, hypercholesteremia, essential HTN, T2DM. CAD, CKD. and chronic a-fib. Pt currently on ADA diet with 50-100% intakes at meals and refusal of 1 snack. Pt has 1+ edema in both feet. Pt is taking insuling, a multivitamin, and rivaroxaban. No ht at this time, nursing will obtain ht on 02/01/49. Whole blood glucose on 01/31 was 136 and 311. On 02/01 whole blood glucose was 87. Monitor for adequate intake, and blood glucose levels. -AKSwathi 02/03/19-Visited with pt this am. Pt reports nausea, RN was aware. Discussed some ways to combat nausea. Pt currently on diabetic diet eating 86% of small to regular meals. Blood glucose remains elevated 219-258 range yesterday. Had one low BG at 60. Wt remains stable. JACKIE 02/10 Pt cont on diabetic diet, eatin 75-100% of small to regular portions. BG cont elevated in 200's with occasional 300's. Pt is recieving insulin. Hgb low at 10.4, Hct low at 32.4. Wt is stable. Will cont to monitor and encourage intake. NEHEMIAS 02/17 Pt cont on diabetic diet. Intake average 88% of small to regular portions. BG cont elevated in 200's with occasional 300's. Pt is recieving insulin. Wt is stable. Will cont to monitor and encourage intake. NEHEMIAS 02/24/19-Reviewed recent charting. Spoke with pt this afternoon about focusing on proteins/non-starchy vegetables/fats (foods that won't raise her BG). Average intake for last week ~81%. Choosing lots of high glycemic index foods. Insulin was adjusted recently. BGs running 140-257 past couple days with a couple low morning BGs of 54 and 57. Pt wt is down ~5 lbs from 02/17/19. Will continue to monitor intakes, BG, weight.JACKIE 03/03/19: Pt eating well mostly 100% of meals. Continuing to order lots of high glycemic foods at meals. Wt is fluctuating, current wt 159 lbs previous wt on 02/24/19 was 159 lbs. Pt does have significant edema RLE 2+, LLE 1+, and R Foot 2+. Average pre-prandial blood glucose since last assessment wa 228. Post prandial average blood glucose was 255. Pt recieving humalog and NPH 30 units in the am, and 25 units at 5:00pm. Will continue to monitor intakes, weights, blood glucose, pt desire for nutrition education.JACKIE 7/22/19: Reviewed labs, weight, intakes. Pt eating well, mostly 100% of meals. Preprandial blood glucose mostly within target ranges, a couple high readings of 230 and 254. Postprandial blood glucose has been averaging 214mg/dL. Wt is down slightly ~4lbs since 03/05, however pt edema has improved to RLE 1+ pitting since last assess. Will continue to monitor intake, weights, and BGs.REYNOLD EWING Mar 10, 2019 15:28
[2019-03-10 16:00] VITALS: BP 156/71
[2019-03-10] MEDS: MELATONIN 3 MG TAB PO SCH (20:48)
[2019-03-10] MEDS: NITROFURANTOIN MACROCRYSTALS 50 MG PO SCH (20:48)
[2019-03-10] MEDS: ACETAMINOPHEN 325 MG TAB PO PRN (20:49)
[2019-03-11 06:33] LABS: PLATELET COUNT, AUTOMATED 105 K/uL (150-450)
[2019-03-11 07:20] VITALS: BP 177/70
[2019-03-11] MEDS: MULTIVITAMINS TAB PO SCH (08:43)
[2019-03-11] MEDS: CARVEDILOL 25 MG TABLET PO SCH ×2 (08:43→20:35)
[2019-03-11] MEDS: amLODIPine BESYL(*) 5 MG TAB PO SCH (08:43)
[2019-03-11] MEDS: GABAPENTIN 300 MG CAP PO SCH ×2 (08:43→20:35)
[2019-03-11] MEDS: ATORVASTATIN 10 MG TAB PO SCH (08:44)
[2019-03-11] MEDS: PANTOPRAZOLE SOD 40 MG TABEC PO SCH (08:44)
[2019-03-11] MEDS: ASCORBIC ACID 500 MG TAB PO SCH (08:44)
[2019-03-11] MEDS: FERROUS GLUCONATE 324 MG TAB PO SCH (08:44)
[2019-03-11] MEDS: DIGOXIN 0.125 MG TAB PO SCH (08:44)
[2019-03-11] MEDS: FLUTICASONE PROP 0.05% 16 GM SCH (08:45)
[2019-03-11] MEDS: RIVAROXABAN 10 MG TAB PO SCH (08:45)
[2019-03-11] MEDS: INSULIN HUM ISO(NPH) 100 UN/ML 3 ML VIAL SUBQ SCH ×2 (08:45→17:13)
[2019-03-11] MEDS: INSULIN HUM LISPRO 100 UN/ML 3 ML VIAL SUBQ PRN ×3 (12:28→20:33)
[2019-03-11] MEDS: ACETAMINOPHEN 325 MG TAB PO PRN (12:32)
[2019-03-11 15:40] VITALS: BP 157/70
[2019-03-11] MEDS: NITROFURANTOIN MACROCRYSTALS 50 MG PO SCH (20:34)
[2019-03-11] MEDS: MELATONIN 3 MG TAB PO SCH (20:35)
[2019-03-12 06:12] LABS: PLATELET COUNT, AUTOMATED 108 K/uL (150-450)
[2019-03-12 07:11] VITALS: BP 177/61
[2019-03-12] MEDS: FLUTICASONE PROP 0.05% 16 GM SCH (08:38)
[2019-03-12] MEDS: ATORVASTATIN 10 MG TAB PO SCH (08:39)
[2019-03-12] MEDS: amLODIPine BESYL(*) 5 MG TAB PO SCH (08:39)
[2019-03-12] MEDS: RIVAROXABAN 10 MG TAB PO SCH (08:39)
[2019-03-12] MEDS: ASCORBIC ACID 500 MG TAB PO SCH (08:39)
[2019-03-12] MEDS: PANTOPRAZOLE SOD 40 MG TABEC PO SCH (08:39)
[2019-03-12] MEDS: CARVEDILOL 25 MG TABLET PO SCH ×2 (08:39→20:54)
[2019-03-12] MEDS: FERROUS GLUCONATE 324 MG TAB PO SCH (08:39)
[2019-03-12] MEDS: DIGOXIN 0.125 MG TAB PO SCH (08:39)
[2019-03-12] MEDS: GABAPENTIN 300 MG CAP PO SCH ×2 (08:39→20:54)
[2019-03-12] MEDS: MULTIVITAMINS TAB PO SCH (08:39)
[2019-03-12] MEDS: INSULIN HUM ISO(NPH) 100 UN/ML 3 ML VIAL SUBQ SCH ×2 (08:42→16:42)
[2019-03-12] MEDS: INSULIN HUM LISPRO 100 UN/ML 3 ML VIAL SUBQ PRN ×3 (13:01→20:55)
[2019-03-12 17:02] VITALS: BP 164/70
[2019-03-12] MEDS: NITROFURANTOIN MACROCRYSTALS 50 MG PO SCH (20:54)
[2019-03-12] MEDS: ACETAMINOPHEN 325 MG TAB PO PRN (20:54)
[2019-03-12] MEDS: MELATONIN 3 MG TAB PO SCH (20:54)
[2019-03-13 07:11] VITALS: BP 175/73
[2019-03-13] MEDS: GABAPENTIN 300 MG CAP PO SCH ×2 (09:00→20:36)
[2019-03-13] MEDS: FLUTICASONE PROP 0.05% 16 GM SCH (09:02)
[2019-03-13] MEDS: DIGOXIN 0.125 MG TAB PO SCH (09:04)
[2019-03-13] MEDS: ASCORBIC ACID 500 MG TAB PO SCH (09:04)
[2019-03-13] MEDS: RIVAROXABAN 10 MG TAB PO SCH (09:04)
[2019-03-13] MEDS: ATORVASTATIN 10 MG TAB PO SCH (09:04)
[2019-03-13] MEDS: amLODIPine BESYL(*) 5 MG TAB PO SCH (09:04)
[2019-03-13] MEDS: PANTOPRAZOLE SOD 40 MG TABEC PO SCH (09:04)
[2019-03-13] MEDS: MULTIVITAMINS TAB PO SCH (09:05)
[2019-03-13] MEDS: CARVEDILOL 25 MG TABLET PO SCH ×2 (09:05→20:35)
[2019-03-13] MEDS: FERROUS GLUCONATE 324 MG TAB PO SCH (09:05)
[2019-03-13] MEDS: INSULIN HUM ISO(NPH) 100 UN/ML 3 ML VIAL SUBQ SCH ×2 (09:09→16:32)
[2019-03-13] MEDS: INSULIN HUM LISPRO 100 UN/ML 3 ML VIAL SUBQ PRN ×3 (12:15→20:35)
[2019-03-13] MEDS: NITROFURANTOIN MACROCRYSTALS 50 MG PO SCH (20:35)
[2019-03-13] MEDS: MELATONIN 3 MG TAB PO SCH (20:36)
[2019-03-13] MEDS: ACETAMINOPHEN 325 MG TAB PO PRN (20:36)
[2019-03-13 21:08] VITALS: BP 168/80
[2019-03-14 07:10] VITALS: BP 166/77
[2019-03-14] MEDS: INSULIN HUM ISO(NPH) 100 UN/ML 3 ML VIAL SUBQ SCH ×2 (08:43→17:02)
[2019-03-14] MEDS: CARVEDILOL 25 MG TABLET PO SCH ×2 (08:43→20:52)
[2019-03-14] MEDS: DIGOXIN 0.125 MG TAB PO SCH (08:44)
[2019-03-14] MEDS: MULTIVITAMINS TAB PO SCH (08:45)
[2019-03-14] MEDS: ASCORBIC ACID 500 MG TAB PO SCH (08:45)
[2019-03-14] MEDS: ATORVASTATIN 10 MG TAB PO SCH (08:45)
[2019-03-14] MEDS: GABAPENTIN 300 MG CAP PO SCH ×2 (08:45→20:53)
[2019-03-14] MEDS: amLODIPine BESYL(*) 5 MG TAB PO SCH (08:45)
[2019-03-14] MEDS: FERROUS GLUCONATE 324 MG TAB PO SCH (08:45)
[2019-03-14] MEDS: FLUTICASONE PROP 0.05% 16 GM SCH (08:45)
[2019-03-14] MEDS: PANTOPRAZOLE SOD 40 MG TABEC PO SCH (08:45)
[2019-03-14] MEDS: RIVAROXABAN 10 MG TAB PO SCH (08:45)
[2019-03-14] MEDS: INSULIN HUM LISPRO 100 UN/ML 3 ML VIAL SUBQ PRN ×3 (12:26→20:53)
[2019-03-14 16:04] VITALS: BP 128/66
[2019-03-14] MEDS: NITROFURANTOIN MACROCRYSTALS 50 MG PO SCH (20:53)
[2019-03-14] MEDS: ACETAMINOPHEN 325 MG TAB PO PRN (20:53)
[2019-03-14] MEDS: MELATONIN 3 MG TAB PO SCH (20:53)
[2019-03-15 07:55] VITALS: BP 165/66
[2019-03-15] MEDS: DIGOXIN 0.125 MG TAB PO SCH (08:53)
[2019-03-15] MEDS: CARVEDILOL 25 MG TABLET PO SCH ×2 (08:53→21:17)
[2019-03-15] MEDS: MULTIVITAMINS TAB PO SCH (08:53)
[2019-03-15] MEDS: PANTOPRAZOLE SOD 40 MG TABEC PO SCH (08:53)
[2019-03-15] MEDS: amLODIPine BESYL(*) 5 MG TAB PO SCH (08:54)
[2019-03-15] MEDS: ASCORBIC ACID 500 MG TAB PO SCH (08:54)
[2019-03-15] MEDS: GABAPENTIN 300 MG CAP PO SCH ×2 (08:54→21:16)
[2019-03-15] MEDS: RIVAROXABAN 10 MG TAB PO SCH (08:54)
[2019-03-15] MEDS: FERROUS GLUCONATE 324 MG TAB PO SCH (08:54)
[2019-03-15] MEDS: ATORVASTATIN 10 MG TAB PO SCH (08:54)
[2019-03-15] MEDS: INSULIN HUM LISPRO 100 UN/ML 3 ML VIAL SUBQ PRN ×4 (08:55→21:17)
[2019-03-15] MEDS: INSULIN HUM ISO(NPH) 100 UN/ML 3 ML VIAL SUBQ SCH ×2 (08:56→17:23)
[2019-03-15] MEDS: FLUTICASONE PROP 0.05% 16 GM SCH (09:00)
[2019-03-15 16:45] VITALS: BP 159/76
[2019-03-15] MEDS: MELATONIN 3 MG TAB PO SCH (21:16)
[2019-03-15] MEDS: NITROFURANTOIN MACROCRYSTALS 50 MG PO SCH (21:16)
[2019-03-15] MEDS: ACETAMINOPHEN 325 MG TAB PO PRN (21:17)
[2019-03-16 07:12] VITALS: BP 158/71
[2019-03-16] MEDS: CARVEDILOL 25 MG TABLET PO SCH ×2 (09:01→21:01)
[2019-03-16] MEDS: FLUTICASONE PROP 0.05% 16 GM SCH (09:01)
[2019-03-16] MEDS: DIGOXIN 0.125 MG TAB PO SCH (09:01)
[2019-03-16] MEDS: PANTOPRAZOLE SOD 40 MG TABEC PO SCH (09:01)
[2019-03-16] MEDS: amLODIPine BESYL(*) 5 MG TAB PO SCH (09:01)
[2019-03-16] MEDS: MULTIVITAMINS TAB PO SCH (09:01)
[2019-03-16] MEDS: ASCORBIC ACID 500 MG TAB PO SCH (09:02)
[2019-03-16] MEDS: RIVAROXABAN 10 MG TAB PO SCH (09:02)
[2019-03-16] MEDS: GABAPENTIN 300 MG CAP PO SCH ×2 (09:02→21:01)
[2019-03-16] MEDS: ATORVASTATIN 10 MG TAB PO SCH (09:02)
[2019-03-16] MEDS: FERROUS GLUCONATE 324 MG TAB PO SCH (09:02)
[2019-03-16] MEDS: INSULIN HUM ISO(NPH) 100 UN/ML 3 ML VIAL SUBQ SCH ×2 (09:03→17:31)
[2019-03-16] MEDS: INSULIN HUM LISPRO 100 UN/ML 3 ML VIAL SUBQ PRN ×4 (09:03→21:01)
[2019-03-16] MEDS: ACETAMINOPHEN 325 MG TAB PO PRN ×2 (12:41→21:01)
[2019-03-16 16:15] VITALS: BP 150/77
[2019-03-16] MEDS: NITROFURANTOIN MACROCRYSTALS 50 MG PO SCH (21:01)
[2019-03-16] MEDS: MELATONIN 3 MG TAB PO SCH (21:01)
[2019-03-17 07:26] VITALS: BP 165/74
[2019-03-17] MEDS: RIVAROXABAN 10 MG TAB PO SCH (08:33)
[2019-03-17] MEDS: FLUTICASONE PROP 0.05% 16 GM SCH (08:33)
[2019-03-17] MEDS: DIGOXIN 0.125 MG TAB PO SCH (08:34)
[2019-03-17] MEDS: amLODIPine BESYL(*) 5 MG TAB PO SCH (08:34)
[2019-03-17] MEDS: GABAPENTIN 300 MG CAP PO SCH ×2 (08:34→20:56)
[2019-03-17] MEDS: PANTOPRAZOLE SOD 40 MG TABEC PO SCH (08:34)
[2019-03-17] MEDS: ATORVASTATIN 10 MG TAB PO SCH (08:34)
[2019-03-17] MEDS: FERROUS GLUCONATE 324 MG TAB PO SCH (08:35)
[2019-03-17] MEDS: ACETAMINOPHEN 325 MG TAB PO PRN ×2 (08:35→20:56)
[2019-03-17] MEDS: MULTIVITAMINS TAB PO SCH (08:35)
[2019-03-17] MEDS: CARVEDILOL 25 MG TABLET PO SCH ×2 (08:35→20:56)
[2019-03-17] MEDS: ASCORBIC ACID 500 MG TAB PO SCH (08:35)
[2019-03-17] MEDS: INSULIN HUM ISO(NPH) 100 UN/ML 3 ML VIAL SUBQ SCH ×2 (08:36→17:06)
[2019-03-17] MEDS: INSULIN HUM LISPRO 100 UN/ML 3 ML VIAL SUBQ PRN ×2 (12:27→20:57)
--- NOTE | 2019-03-17 14:40 | Medical Nutrition Therapy ---
Nutrition Anthropometrics Height (Inches): 67.00 Height (Calculated Centimeters: 170.104152 Weight (Pounds): 157 Weight (Calculated Kilograms): 71.214 BMI: 25.4 Arnoldo Nutrition Score: Adequate Arnolod Nutrition Risk Score: 16 Dietary Referral Nutrition Risk Factors: Special Diet Nutrition Risk Comment: Physical Findings Physical Appearance: BMI WNL Skin Appearance Skin Appearance: Edema Edema Location Modifier: Left Edema Location: Foot Type of Edema: Degree of Edema: 3+ Gastrointestinal Symptoms GI Symtoms: Change in Bowel Pattern Tube Present: Bowel Sounds: Recent Bowel Pattern: Diarrhea Stool Characteristics: Loose Nutritional Diagnosis Nutritional Risk Acuity 2: Chronic Renal Failure, Blood Glucose > 300mg/dl Nutritional Risk Acuity 4: Modified Diet Past Medical History: CAD, HTN, T2DM, CKD-3, non-Hodkins lymphoma, CHF, chronic edema, chronic UTI, hypercholesteremia, urinary incontinence, chronic renal disease, pulmonary nodule, GI bleed, anemia, ribs (multiple fractures), hypogammagloblinemia, lumbosacral spinal surgery, tonsillectomy, and cataract extraction and CABG, T2DM, chronic afib. Nutritional Acuity: 2-Moderate Nutrition Diagnosis: Inconsistent Carb. Intake Nutrition Etiology: Physiological Causes Nutrition Problem/Etiology/Sym: Inconsistent carb intake as related to physiologic causes as evidenced by T2DM and whole blood glucose of over 300. Energy Requirement: 1812 (25kcal/kg. Pt does not have a ht at this time to assess energy needs. nursing will obtain ht on .) Protein Requirement: 73 (1 g protein/kg. Slightly elevated due to illness and age.) Fluid Requirement: 1812 (1mL/kcal) Diet Type: Diabetic Nutrition Intervention: Cont diet as ordered, Encourage intake, HS snack Nutrition Monitoring & Eval Nutrition Goals: Eat 75-100% Meal Nutrition Follow-Up: Good Intake RD Patient Assessment Time: [address] Assessment Type: RD Re-Assessment Patient Nutrition Acuity: 2-Moderate Follow Up Date: Mar 25, 2019 Nutritional Comment: Pt admitted to [facility] from med/surg due to weakness. Recent fall and bacterial pneumonia. Hx of acute diastolic heart failure, hypercholesteremia, essential HTN, T2DM. CAD, CKD. and chronic a-fib. Pt currently on ADA diet with 50-100% intakes at meals and refusal of 1 snack. Pt has 1+ edema in both feet. Pt is taking insuling, a multivitamin, and rivaroxaban. No ht at this time, nursing will obtain ht on 02/01/49. Whole blood glucose on 01/31 was 136 and 311. On 02/01 whole blood glucose was 87. Monitor for adequate intake, and blood glucose levels. -SARTHAK 02/03/19-Visited with pt this am. Pt reports nausea, RN was aware. Discussed some ways to combat nausea. Pt currently on diabetic diet eating 86% of small to regular meals. Blood glucose remains elevated 219-258 range yesterday. Had one low BG at 60. Wt remains stable. JACKIE 02/10 Pt cont on diabetic diet, eatin 75-100% of small to regular portions. BG cont elevated in 200's with occasional 300's. Pt is recieving insulin. Hgb low at 10.4, Hct low at 32.4. Wt is stable. Will cont to monitor and encourage intake. NEHEMIAS 02/17 Pt cont on diabetic diet. Intake average 88% of small to regular portions. BG cont elevated in 200's with occasional 300's. Pt is recieving insulin. Wt is stable. Will cont to monitor and encourage intake. NEHEMIAS 02/24/19-Reviewed recent charting. Spoke with pt this afternoon about focusing on proteins/non-starchy vegetables/fats (foods that won't raise her BG). Average intake for last week ~81%. Choosing lots of high glycemic index foods. Insulin was adjusted recently. BGs running 140-257 past couple days with a couple low morning BGs of 54 and 57. Pt wt is down ~5 lbs from 02/17/19. Will continue to monitor intakes, BG, weight.JACKIE 03/03/19: Pt eating well mostly 100% of meals. Continuing to order lots of high glycemic foods at meals. Wt is fluctuating, current wt 159 lbs previous wt on 02/24/19 was 159 lbs. Pt does have significant edema RLE 2+, LLE 1+, and R Foot 2+. Average pre-prandial blood glucose since last assessment wa 228. Post prandial average blood glucose was 255. Pt recieving humalog and NPH 30 units in the am, and 25 units at 5:00pm. Will continue to monitor intakes, weights, blood glucose, pt desire for nutrition education.JACKIE 03/10/19: Reviewed labs, weight, intakes. Pt eating well, mostly 100% of meals. Preprandial blood glucose mostly within target ranges, a couple high readings of 230 and 254. Postprandial blood glucose has been averaging 214mg/dL. Wt is down slightly ~4lbs since 03/05, however pt edema has improved to RLE 1+ pitting since last assess. Will continue to monitor intake, weights, and BGs.JACKIE 03/17/19: Spoke with pt briefly. Appetite is good. She is eating mostly 100% of meals plus snacks. Average preprandial BG ~178 and average postprandial BG are ~223 since last assess on 03/10/19. Her wt is up slightly by 2 lbs she aslo has BLE edema. Will continue to monitor weight, intakes, BGs.REYNOLD EWING Mar 17, 2019 14:40
[2019-03-17 15:22] VITALS: BP 140/74
[2019-03-17] MEDS: NITROFURANTOIN MACROCRYSTALS 50 MG PO SCH (20:56)
[2019-03-17] MEDS: MELATONIN 3 MG TAB PO SCH (20:56)
[2019-03-18 07:15] VITALS: BP 175/67
[2019-03-18] MEDS: FLUTICASONE PROP 0.05% 16 GM SCH (08:43)
[2019-03-18] MEDS: ATORVASTATIN 10 MG TAB PO SCH (08:44)
[2019-03-18] MEDS: ASCORBIC ACID 500 MG TAB PO SCH (08:44)
[2019-03-18] MEDS: CARVEDILOL 25 MG TABLET PO SCH ×2 (08:44→20:53)
[2019-03-18] MEDS: INSULIN HUM ISO(NPH) 100 UN/ML 3 ML VIAL SUBQ SCH ×2 (08:44→17:15)
[2019-03-18] MEDS: GABAPENTIN 300 MG CAP PO SCH ×2 (08:44→20:52)
[2019-03-18] MEDS: DIGOXIN 0.125 MG TAB PO SCH (08:45)
[2019-03-18] MEDS: FERROUS GLUCONATE 324 MG TAB PO SCH (08:45)
[2019-03-18] MEDS: PANTOPRAZOLE SOD 40 MG TABEC PO SCH (08:45)
[2019-03-18] MEDS: amLODIPine BESYL(*) 5 MG TAB PO SCH (08:45)
[2019-03-18] MEDS: MULTIVITAMINS TAB PO SCH (08:45)
[2019-03-18] MEDS: RIVAROXABAN 10 MG TAB PO SCH (08:46)
[2019-03-18] MEDS: INSULIN HUM LISPRO 100 UN/ML 3 ML VIAL SUBQ PRN ×3 (12:33→20:54)
[2019-03-18] MEDS: ACETAMINOPHEN 325 MG TAB PO PRN (20:52)
[2019-03-18] MEDS: MELATONIN 3 MG TAB PO SCH (20:53)
[2019-03-18] MEDS: NITROFURANTOIN MACROCRYSTALS 50 MG PO SCH (20:53)
[2019-03-18 21:15] VITALS: BP 156/76
[2019-03-19 06:54] LABS: PLATELET COUNT, AUTOMATED 162 K/uL (150-450)
[2019-03-19 07:25] VITALS: BP 177/82
[2019-03-19] MEDS: ATORVASTATIN 10 MG TAB PO SCH (08:58)
[2019-03-19] MEDS: RIVAROXABAN 10 MG TAB PO SCH (08:58)
[2019-03-19] MEDS: FLUTICASONE PROP 0.05% 16 GM SCH (08:58)
[2019-03-19] MEDS: ASCORBIC ACID 500 MG TAB PO SCH (08:59)
[2019-03-19] MEDS: GABAPENTIN 300 MG CAP PO SCH ×2 (08:59→20:53)
[2019-03-19] MEDS: amLODIPine BESYL(*) 5 MG TAB PO SCH (08:59)
[2019-03-19] MEDS: FERROUS GLUCONATE 324 MG TAB PO SCH (08:59)
[2019-03-19] MEDS: MULTIVITAMINS TAB PO SCH (08:59)
[2019-03-19] MEDS: CARVEDILOL 25 MG TABLET PO SCH ×2 (08:59→20:53)
[2019-03-19] MEDS: DIGOXIN 0.125 MG TAB PO SCH (08:59)
[2019-03-19] MEDS: PANTOPRAZOLE SOD 40 MG TABEC PO SCH (08:59)
[2019-03-19] MEDS: INSULIN HUM ISO(NPH) 100 UN/ML 3 ML VIAL SUBQ SCH ×2 (09:00→16:42)
[2019-03-19] MEDS: ACETAMINOPHEN 325 MG TAB PO PRN ×2 (09:55→20:53)
[2019-03-19 16:20] VITALS: BP 154/68
[2019-03-19] MEDS: INSULIN HUM LISPRO 100 UN/ML 3 ML VIAL SUBQ PRN ×2 (16:42→20:54)
[2019-03-19] MEDS: MELATONIN 3 MG TAB PO SCH (20:53)
[2019-03-19] MEDS: NITROFURANTOIN MACROCRYSTALS 50 MG PO SCH (20:53)
[2019-03-20 07:25] VITALS: BP 144/68
[2019-03-20] MEDS: FLUTICASONE PROP 0.05% 16 GM SCH (08:31)
[2019-03-20] MEDS: amLODIPine BESYL(*) 5 MG TAB PO SCH (08:32)
[2019-03-20] MEDS: ASCORBIC ACID 500 MG TAB PO SCH (08:32)
[2019-03-20] MEDS: RIVAROXABAN 10 MG TAB PO SCH (08:32)
[2019-03-20] MEDS: PANTOPRAZOLE SOD 40 MG TABEC PO SCH (08:32)
[2019-03-20] MEDS: CARVEDILOL 25 MG TABLET PO SCH ×2 (08:32→20:24)
[2019-03-20] MEDS: GABAPENTIN 300 MG CAP PO SCH ×2 (08:32→20:25)
[2019-03-20] MEDS: ACETAMINOPHEN 325 MG TAB PO PRN ×2 (08:32→20:24)
[2019-03-20] MEDS: ONDANSETRON 4 MG ODT TABDP SL PRN (08:32)
[2019-03-20] MEDS: MULTIVITAMINS TAB PO SCH (08:33)
[2019-03-20] MEDS: FERROUS GLUCONATE 324 MG TAB PO SCH (08:33)
[2019-03-20] MEDS: ATORVASTATIN 10 MG TAB PO SCH (08:33)
[2019-03-20] MEDS: INSULIN HUM LISPRO 100 UN/ML 3 ML VIAL SUBQ PRN ×4 (08:34→20:23)
[2019-03-20] MEDS: INSULIN HUM ISO(NPH) 100 UN/ML 3 ML VIAL SUBQ SCH ×2 (08:34→16:49)
[2019-03-20] MEDS: DIGOXIN 0.125 MG TAB PO SCH (08:42)
[2019-03-20] MEDS: NITROFURANTOIN MACROCRYSTALS 50 MG PO SCH (20:24)
[2019-03-20] MEDS: MELATONIN 3 MG TAB PO SCH (20:24)
[2019-03-20 21:00] VITALS: BP 157/72
[2019-03-21 07:15] VITALS: BP 170/69
[2019-03-21] MEDS: FLUTICASONE PROP 0.05% 16 GM SCH (08:45)
[2019-03-21] MEDS: amLODIPine BESYL(*) 5 MG TAB PO SCH (08:46)
[2019-03-21] MEDS: FERROUS GLUCONATE 324 MG TAB PO SCH (08:46)
[2019-03-21] MEDS: RIVAROXABAN 10 MG TAB PO SCH (08:46)
[2019-03-21] MEDS: GABAPENTIN 300 MG CAP PO SCH ×2 (08:46→20:19)
[2019-03-21] MEDS: MULTIVITAMINS TAB PO SCH (08:46)
[2019-03-21] MEDS: ATORVASTATIN 10 MG TAB PO SCH (08:46)
[2019-03-21] MEDS: ASCORBIC ACID 500 MG TAB PO SCH (08:46)
[2019-03-21] MEDS: PANTOPRAZOLE SOD 40 MG TABEC PO SCH (08:46)
[2019-03-21] MEDS: DIGOXIN 0.125 MG TAB PO SCH (08:46)
[2019-03-21] MEDS: CARVEDILOL 25 MG TABLET PO SCH ×2 (08:46→20:19)
[2019-03-21] MEDS: INSULIN HUM ISO(NPH) 100 UN/ML 3 ML VIAL SUBQ SCH ×2 (08:47→16:48)
[2019-03-21] MEDS: INSULIN HUM LISPRO 100 UN/ML 3 ML VIAL SUBQ PRN ×3 (12:31→20:20)
[2019-03-21 16:50] VITALS: BP 154/78
[2019-03-21] MEDS: MELATONIN 3 MG TAB PO SCH (20:19)
[2019-03-21] MEDS: ACETAMINOPHEN 325 MG TAB PO PRN (20:19)
[2019-03-21] MEDS: NITROFURANTOIN MACROCRYSTALS 50 MG PO SCH (20:20)
[2019-03-22 07:42] VITALS: BP 165/68
[2019-03-22] MEDS: FERROUS GLUCONATE 324 MG TAB PO SCH (08:21)
[2019-03-22] MEDS: RIVAROXABAN 10 MG TAB PO SCH (08:22)
[2019-03-22] MEDS: MULTIVITAMINS TAB PO SCH (08:22)
[2019-03-22] MEDS: GABAPENTIN 300 MG CAP PO SCH ×2 (08:22→20:52)
[2019-03-22] MEDS: DIGOXIN 0.125 MG TAB PO SCH (08:22)
[2019-03-22] MEDS: amLODIPine BESYL(*) 5 MG TAB PO SCH (08:23)
[2019-03-22] MEDS: ASCORBIC ACID 500 MG TAB PO SCH (08:23)
[2019-03-22] MEDS: ATORVASTATIN 10 MG TAB PO SCH (08:23)
[2019-03-22] MEDS: CARVEDILOL 25 MG TABLET PO SCH ×2 (08:23→20:53)
[2019-03-22] MEDS: PANTOPRAZOLE SOD 40 MG TABEC PO SCH (08:23)
[2019-03-22] MEDS: INSULIN HUM LISPRO 100 UN/ML 3 ML VIAL SUBQ PRN ×4 (08:24→20:53)
[2019-03-22] MEDS: FLUTICASONE PROP 0.05% 16 GM SCH (09:56)
[2019-03-22] MEDS: INSULIN HUM ISO(NPH) 100 UN/ML 3 ML VIAL SUBQ SCH ×2 (09:56→17:19)
[2019-03-22 15:16] VITALS: BP 176/73
[2019-03-22] MEDS: ACETAMINOPHEN 325 MG TAB PO PRN (16:23)
[2019-03-22] MEDS: MELATONIN 3 MG TAB PO SCH (20:52)
[2019-03-22] MEDS: NITROFURANTOIN MACROCRYSTALS 50 MG PO SCH (20:52)
[2019-03-23 07:21] VITALS: BP 183/84
[2019-03-23] MEDS: FLUTICASONE PROP 0.05% 16 GM SCH (08:36)
[2019-03-23] MEDS: MULTIVITAMINS TAB PO SCH (08:37)
[2019-03-23] MEDS: PANTOPRAZOLE SOD 40 MG TABEC PO SCH (08:37)
[2019-03-23] MEDS: CARVEDILOL 25 MG TABLET PO SCH ×2 (08:37→20:51)
[2019-03-23] MEDS: DIGOXIN 0.125 MG TAB PO SCH (08:37)
[2019-03-23] MEDS: amLODIPine BESYL(*) 5 MG TAB PO SCH (08:37)
[2019-03-23] MEDS: ASCORBIC ACID 500 MG TAB PO SCH (08:38)
[2019-03-23] MEDS: RIVAROXABAN 10 MG TAB PO SCH (08:38)
[2019-03-23] MEDS: GABAPENTIN 300 MG CAP PO SCH ×2 (08:38→20:52)
[2019-03-23] MEDS: FERROUS GLUCONATE 324 MG TAB PO SCH (08:38)
[2019-03-23] MEDS: ATORVASTATIN 10 MG TAB PO SCH (08:38)
[2019-03-23] MEDS: INSULIN HUM ISO(NPH) 100 UN/ML 3 ML VIAL SUBQ SCH ×2 (08:39→17:14)
[2019-03-23] MEDS: ACETAMINOPHEN 325 MG TAB PO PRN ×2 (10:31→20:52)
[2019-03-23] MEDS: INSULIN HUM LISPRO 100 UN/ML 3 ML VIAL SUBQ PRN ×3 (12:23→20:53)
[2019-03-23 16:03] VITALS: BP 154/72
[2019-03-23] MEDS: MELATONIN 3 MG TAB PO SCH (20:51)
[2019-03-23] MEDS: NITROFURANTOIN MACROCRYSTALS 50 MG PO SCH (20:51)
[2019-03-24 07:05] VITALS: BP 161/72
[2019-03-24] MEDS: ACETAMINOPHEN 325 MG TAB PO PRN (07:39)
[2019-03-24] MEDS: PANTOPRAZOLE SOD 40 MG TABEC PO SCH (08:31)
[2019-03-24] MEDS: CARVEDILOL 25 MG TABLET PO SCH ×2 (08:31→20:26)
[2019-03-24] MEDS: FERROUS GLUCONATE 324 MG TAB PO SCH (08:31)
[2019-03-24] MEDS: ATORVASTATIN 10 MG TAB PO SCH (08:31)
[2019-03-24] MEDS: FLUTICASONE PROP 0.05% 16 GM SCH (08:31)
[2019-03-24] MEDS: ASCORBIC ACID 500 MG TAB PO SCH (08:32)
[2019-03-24] MEDS: GABAPENTIN 300 MG CAP PO SCH ×2 (08:32→20:26)
[2019-03-24] MEDS: DIGOXIN 0.125 MG TAB PO SCH (08:32)
[2019-03-24] MEDS: RIVAROXABAN 10 MG TAB PO SCH (08:32)
[2019-03-24] MEDS: amLODIPine BESYL(*) 5 MG TAB PO SCH (08:33)
[2019-03-24] MEDS: MULTIVITAMINS TAB PO SCH (08:33)
[2019-03-24] MEDS: INSULIN HUM ISO(NPH) 100 UN/ML 3 ML VIAL SUBQ SCH ×2 (08:34→17:18)
[2019-03-24] MEDS: INSULIN HUM LISPRO 100 UN/ML 3 ML VIAL SUBQ PRN ×3 (12:19→20:28)
--- NOTE | 2019-03-24 13:36 | Hospitalist Progress Note ---
Subjective Progress Notes Subjective R neck, shoulder and arm sore for several days. No swelling. Physical Exam Vital Signs Date Time Temp Pulse Resp B/P (MAP) Pulse Ox O2 Delivery O2 Flow Rate FiO2 03/24/19 11:06 96 Nasal Cannula 2.5 03/24/19 08:32 68 03/24/19 07:05 97.2 16 161/72 (101) Intake and Output 03/24/19 07:03 Intake Total 600 ml Balance 600 ml Intake Oral 600 ml # Voids 6 # Bowel Movements 2 General Appearance: Alert, Awake, No Acute Distress, Afebrile Neuro: No Gross deficits Eyes: PERRLA Cardiovascular: Regular Rate and Rhythm Respiratory: Clear to Auscultation GI: Soft and Non-Tender Extremities: Warm, Perfused, Edema (Increased edema in both LE today, R>L.), Other (R upper arm with quarter sized soft, freely moveable mass which is nontender.) Integumentary: Skin Intact without Lesion / Mass Psych: Alert & Oriented X3, Appropriate Mood & Affect Assessment and Plan Problems: (1) Arm pain Status: Acute Assessment & Plan: The patient complains of pain in R neck, shoulder and arm. There has been no swelling and she is chronically anticoagulated. Will have PT assess as this seems to be musculoskeletal in nature. (2) Blood loss Status: Acute Assessment & Plan: Her Hgb has improved on most recent labs after adding a vitamin C to be taken with her iron. She is back on Xarelto, and has not had any gross bleeding. Protonix was decreased to once daily. (3) Bacterial pneumonia Status: Acute Assessment & Plan: Her chest x-ray showed a new right lower lobe infiltrate and her WBC was elevated. She She has completed a full course of antibiotics for this. (4) UTI (urinary tract infection) Status: Acute Assessment & Plan: She was placed back on Bactrim but that culture was contaminated. We stopped the Bactrim and placed her back on her prophylactic Macrodantin (5) CHRONIC ATRIAL FIBRILLATION Status: Chronic Assessment & Plan: She is on chronic treatment with digoxin and Xarelto. Dig level is therapeutic. (6) Essential hypertension Status: Chronic Assessment & Plan: She is on chronic treatment with amlodipine and carvedilol. (7) Type II diabetes mellitus Status: Chronic Assessment & Plan: She has been on chronic treatment with NPH. She was also covered with sliding scale level #2. Blood sugars have been well controlled overall. (8) Acute renal failure Status: Acute Assessment & Plan: Mild. Most likely due to dehydration. She was admitted with creatinine of 1.4. It improved with gentle IV fluids to 1.1 while on the medical floor. (9) Follicular non-Hodgkin's lymphoma Status: Chronic Assessment & Plan: Low grade non-Hodgkin lymphoma/small lymphocytic leukemia: Per the most recent note from the [facility], the plan is for continued active surveillance. She has not required treatment for this. (10) CAD (coronary artery disease) Status: Chronic Assessment & Plan: The patient's last echo showed an EF of 35-40% with global hypokinesis of the L ventricle. Continue carvedilol. 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 The [facility] increased the dose of her IVIG. Her most recent level was in the low 500s with replacement. The plan was to continue this indefinitely. Unfortunately, patient did have a fall and sustained some fractures and was in and out of the hospital and rehabilitation, then followed by [facility]. She had been off IVIG since about mid to late August 2018. She received a dose on [facility] at [facility]. (12) Frontal headache Status: Chronic Assessment & Plan: The patient states she wakes up without a headache and then develops pain over her R eye. She says she can remember having this since grade school. Continue Flonase for relief. Headaches have been much improved on the Flonase. (13) Edema Status: Chronic Assessment & Plan: Encouraged ambulation at least once daily, elevation of feet while sitting, and apply linh hose. Continue to monitor. Time Spent on Plan of Care: < 30 min Problem Qualifiers (1) Arm pain: Laterality: right Qualified Codes: M79.601 - Pain in right arm YARELI THURMAN MD Mar 24, 2019 13:36
--- NOTE | 2019-03-24 16:11 | Medical Nutrition Therapy ---
Nutrition Anthropometrics Height (Inches): 67.00 Height (Calculated Centimeters: 170.322681 Weight (Pounds): 160 Weight (Calculated Kilograms): 72.575 BMI: 25.4 Arnoldo Nutrition Score: Adequate Arnoldo Nutrition Risk Score: 17 Dietary Referral Nutrition Risk Factors: Special Diet Nutrition Risk Comment: Physical Findings Physical Appearance: BMI WNL Skin Appearance Skin Appearance: Edema Edema Location Modifier: Left Edema Location: Foot Type of Edema: Degree of Edema: 2+ Gastrointestinal Symptoms GI Symtoms: Change in Bowel Pattern Tube Present: Bowel Sounds: Recent Bowel Pattern: Diarrhea Stool Characteristics: Loose Nutritional Diagnosis Nutritional Risk Acuity 2: Chronic Renal Failure, Blood Glucose > 300mg/dl Nutritional Risk Acuity 4: Modified Diet Past Medical History: CAD, HTN, T2DM, CKD-3, non-Hodkins lymphoma, CHF, chronic edema, chronic UTI, hypercholesteremia, urinary incontinence, chronic renal disease, pulmonary nodule, GI bleed, anemia, ribs (multiple fractures), hypogammagloblinemia, lumbosacral spinal surgery, tonsillectomy, and cataract extraction and CABG, T2DM, chronic afib. Nutritional Acuity: 2-Moderate Nutrition Diagnosis: Inconsistent Carb. Intake Nutrition Etiology: Physiological Causes Nutrition Problem/Etiology/Sym: Inconsistent carb intake as related to physiologic causes as evidenced by T2DM and whole blood glucose of over 300. Energy Requirement: 1812 (25kcal/kg. Pt does not have a ht at this time to assess energy needs. nursing will obtain ht on .) Protein Requirement: 73 (1 g protein/kg. Slightly elevated due to illness and age.) Fluid Requirement: 1812 (1mL/kcal) Diet Type: Diabetic Nutrition Intervention: Cont diet as ordered, Encourage intake, HS snack Nutrition Monitoring & Eval Nutrition Goals: Eat 75-100% Meal Nutrition Follow-Up: Good Intake Nutrition Monitoring: BGs, intake RD Patient Assessment Time: [address] Assessment Type: RD Re-Assessment Patient Nutrition Acuity: 2-Moderate Follow Up Date: Apr 01, 2019 Nutritional Comment: Pt admitted to [facility] from med/surg due to weakness. Recent fall and bacterial pneumonia. Hx of acute diastolic heart failure, hypercholesteremia, essential HTN, T2DM. CAD, CKD. and chronic a-fib. Pt currently on ADA diet with 50-100% intakes at meals and refusal of 1 snack. Pt has 1+ edema in both feet. Pt is taking insuling, a multivitamin, and rivaroxaban. No ht at this time, nursing will obtain ht on 02/01/49. Whole blood glucose on 01/31 was 136 and 311. On 02/01 whole blood glucose was 87. Monitor for adequate intake, and blood glucose levels. -AKSwathi 02/03/19-Visited with pt this am. Pt reports nausea, RN was aware. Discussed some ways to combat nausea. Pt currently on diabetic diet eating 86% of small to regular meals. Blood glucose remains elevated 219-258 range yesterday. Had one low BG at 60. Wt remains stable. JACKIE 02/10 Pt cont on diabetic diet, eatin 75-100% of small to regular portions. BG cont elevated in 200's with occasional 300's. Pt is recieving insulin. Hgb low at 10.4, Hct low at 32.4. Wt is stable. Will cont to monitor and encourage intake. BK 02/17 Pt cont on diabetic diet. Intake average 88% of small to regular portions. BG cont elevated in 200's with occasional 300's. Pt is recieving insulin. Wt is stable. Will cont to monitor and encourage intake. NEHEMIAS 02/24/19-Reviewed recent charting. Spoke with pt this afternoon about focusing on proteins/non-starchy vegetables/fats (foods that won't raise her BG). Average intake for last week ~81%. Choosing lots of high glycemic index foods. Insulin was adjusted recently. BGs running 140-257 past couple days with a couple low morning BGs of 54 and 57. Pt wt is down ~5 lbs from 02/17/19. Will continue to monitor intakes, BG, weight.JACKIE 03/03/19: Pt eating well mostly 100% of meals. Continuing to order lots of high glycemic foods at meals. Wt is fluctuating, current wt 159 lbs previous wt on 02/24/19 was 159 lbs. Pt does have significant edema RLE 2+, LLE 1+, and R Foot 2+. Average pre-prandial blood glucose since last assessment wa 228. Post prandial average blood glucose was 255. Pt recieving humalog and NPH 30 units in the am, and 25 units at 5:00pm. Will continue to monitor intakes, weights, blood glucose, pt desire for nutrition education.JACKIE 03/10/19: Reviewed labs, weight, intakes. Pt eating well, mostly 100% of meals. Preprandial blood glucose mostly within target ranges, a couple high readings of 230 and 254. Postprandial blood glucose has been averaging 214mg/dL. Wt is down slightly ~4lbs since 03/05, however pt edema has improved to RLE 1+ pitting since last assess. Will continue to monitor intake, weights, and BGs.JACKIE 03/17/19: Spoke with pt briefly. Appetite is good. She is eating mostly 100% of meals plus snacks. Average preprandial BG ~178 and average postprandial BG are ~223 since last assess on 03/10/19. Her wt is up slightly by 2 lbs she aslo has BLE edema. Will continue to monitor weight, intakes, BGs.JACKIE 03/24/19: Eating well continues to eat 100% of meals plus snacks. BGs still running high average preprandial BG was 180, average post prandial was 210. Has significant edema, wt on 03/24 is 160 lbs. Will continue to monitor wt, appetite, and BGs.REYNOLD EWING Mar 24, 2019 12:13
[2019-03-24 16:25] VITALS: BP 175/80
[2019-03-24] MEDS: MELATONIN 3 MG TAB PO SCH (20:26)
[2019-03-24] MEDS: NITROFURANTOIN MACROCRYSTALS 50 MG PO SCH (20:26)
[2019-03-25 07:11] VITALS: BP 173/67
[2019-03-25] MEDS: FLUTICASONE PROP 0.05% 16 GM SCH (09:27)
[2019-03-25] MEDS: CARVEDILOL 25 MG TABLET PO SCH ×2 (09:28→20:43)
[2019-03-25] MEDS: MULTIVITAMINS TAB PO SCH (09:29)
[2019-03-25] MEDS: PANTOPRAZOLE SOD 40 MG TABEC PO SCH (09:29)
[2019-03-25] MEDS: GABAPENTIN 300 MG CAP PO SCH ×2 (09:29→20:43)
[2019-03-25] MEDS: DIGOXIN 0.125 MG TAB PO SCH (09:29)
[2019-03-25] MEDS: amLODIPine BESYL(*) 5 MG TAB PO SCH (09:29)
[2019-03-25] MEDS: FERROUS GLUCONATE 324 MG TAB PO SCH (09:29)
[2019-03-25] MEDS: ATORVASTATIN 10 MG TAB PO SCH (09:30)
[2019-03-25] MEDS: HYDROCHLOROTHIAZIDE 25 MG TAB PO SCH (09:30)
[2019-03-25] MEDS: ASCORBIC ACID 500 MG TAB PO SCH (09:30)
[2019-03-25] MEDS: RIVAROXABAN 10 MG TAB PO SCH (09:30)
[2019-03-25] MEDS: INSULIN HUM ISO(NPH) 100 UN/ML 3 ML VIAL SUBQ SCH ×2 (09:31→17:10)
[2019-03-25] MEDS: INSULIN HUM LISPRO 100 UN/ML 3 ML VIAL SUBQ PRN ×3 (12:27→20:46)
--- NOTE | 2019-03-25 15:09 | OT ECF NOTE ---
Type of Note: Initial Note Primary Medical Diagnosis: Right Upper Extremity Pain Occupational Therapy Evaluation Date: 03/25/19 SUBJECTIVE: Prior Hospitalization: ECF 01/31/19-Current Prior Level of Function: Pt has been Independent/SBA with nursing staff on ECF Prior Living Status: Apartment OT evaluation received for patient complaint of R) UE pain within the last few days. Upon OT arrival, pt reports no further pain in right UE. Evaluation continued to ensure appropriate function and no increase in pain with testing. Pt reports pain started a few days ago and radiated from shoulder down to wrist. Pt reports no further pain and "perhaps I slept on it wrong, but I don't sleep on that side." Reports no limitations with ADLs or activities that aggravate pain. OBJECTIVE: Strength: Equal bilateral upper extremity strength (shoulder flexion/abduction, IR/ER, shoulder extension, elbow flexion/extension) ROM: Both upper extremities, WFL. Equal UE AROM. Sensation: No paraesthesia reported Objective Testing: Woods test: Negative Neer Impingement sign: Negative Empty Can test: Negative Drop arm test: Negative Biceps Speed's test: Negative No noted edema or bruising. No reported fall or event injuring R) UE. Mass palpated on right biceps, pt attributes to history of "lipoma." No tenderness upon palpation. ASSESSMENT: Pt reports no further pain in R) UE. No further OT intervention indicated at this time. Will follow to ensure pt remains pain free in R) UE. Pt agreeable with plan. PLAN: No further skilled OT services indicated at this time. Thank you for this referral. If you have any questions, concerns, or comments about this report or plan, please contact me at . Oma Solano MS, OTR/L Occupational Therapist NIRMAL
[2019-03-25 17:25] VITALS: BP 174/79
[2019-03-25] MEDS: NITROFURANTOIN MACROCRYSTALS 50 MG PO SCH (20:43)
[2019-03-25] MEDS: MELATONIN 3 MG TAB PO SCH (20:43)
[2019-03-26 07:25] VITALS: BP 178/79
[2019-03-26] MEDS: FERROUS GLUCONATE 324 MG TAB PO SCH (08:45)
[2019-03-26] MEDS: FLUTICASONE PROP 0.05% 16 GM SCH (08:45)
[2019-03-26] MEDS: GABAPENTIN 300 MG CAP PO SCH ×2 (08:45→20:34)
[2019-03-26] MEDS: PANTOPRAZOLE SOD 40 MG TABEC PO SCH (08:45)
[2019-03-26] MEDS: ATORVASTATIN 10 MG TAB PO SCH (08:45)
[2019-03-26] MEDS: MULTIVITAMINS TAB PO SCH (08:45)
[2019-03-26] MEDS: HYDROCHLOROTHIAZIDE 25 MG TAB PO SCH (08:45)
[2019-03-26] MEDS: RIVAROXABAN 10 MG TAB PO SCH (08:46)
[2019-03-26] MEDS: amLODIPine BESYL(*) 5 MG TAB PO SCH (08:46)
[2019-03-26] MEDS: CARVEDILOL 25 MG TABLET PO SCH ×2 (08:46→20:34)
[2019-03-26] MEDS: DIGOXIN 0.125 MG TAB PO SCH (08:46)
[2019-03-26] MEDS: ASCORBIC ACID 500 MG TAB PO SCH (08:46)
[2019-03-26] MEDS: INSULIN HUM ISO(NPH) 100 UN/ML 3 ML VIAL SUBQ SCH ×2 (08:47→17:00)
[2019-03-26] MEDS: INSULIN HUM LISPRO 100 UN/ML 3 ML VIAL SUBQ PRN ×3 (12:28→20:34)
[2019-03-26 17:10] VITALS: BP 164/66
[2019-03-26] MEDS: NITROFURANTOIN MACROCRYSTALS 50 MG PO SCH (20:34)
[2019-03-26] MEDS: ACETAMINOPHEN 325 MG TAB PO PRN (20:34)
[2019-03-26] MEDS: MELATONIN 3 MG TAB PO SCH (20:34)
[2019-03-27 07:25] VITALS: BP 191/74
[2019-03-27] MEDS: ACETAMINOPHEN 325 MG TAB PO PRN ×2 (08:06→20:28)
[2019-03-27] MEDS: FLUTICASONE PROP 0.05% 16 GM SCH (08:33)
[2019-03-27] MEDS: HYDROCHLOROTHIAZIDE 25 MG TAB PO SCH (08:34)
[2019-03-27] MEDS: CARVEDILOL 25 MG TABLET PO SCH ×2 (08:34→20:28)
[2019-03-27] MEDS: ASCORBIC ACID 500 MG TAB PO SCH (08:34)
[2019-03-27] MEDS: DIGOXIN 0.125 MG TAB PO SCH (08:34)
[2019-03-27] MEDS: ATORVASTATIN 10 MG TAB PO SCH (08:34)
[2019-03-27] MEDS: MULTIVITAMINS TAB PO SCH (08:35)
[2019-03-27] MEDS: FERROUS GLUCONATE 324 MG TAB PO SCH (08:35)
[2019-03-27] MEDS: GABAPENTIN 300 MG CAP PO SCH ×2 (08:35→20:28)
[2019-03-27] MEDS: amLODIPine BESYL(*) 5 MG TAB PO SCH (08:35)
[2019-03-27] MEDS: PANTOPRAZOLE SOD 40 MG TABEC PO SCH (08:35)
[2019-03-27] MEDS: RIVAROXABAN 10 MG TAB PO SCH (08:35)
[2019-03-27] MEDS: INSULIN HUM LISPRO 100 UN/ML 3 ML VIAL SUBQ PRN ×4 (08:36→20:28)
[2019-03-27] MEDS: INSULIN HUM ISO(NPH) 100 UN/ML 3 ML VIAL SUBQ SCH ×2 (08:37→17:10)
[2019-03-27 17:29] VITALS: BP 184/76
[2019-03-27] MEDS: NITROFURANTOIN MACROCRYSTALS 50 MG PO SCH (20:28)
[2019-03-27] MEDS: MELATONIN 3 MG TAB PO SCH (20:28)
[2019-03-28 07:14] VITALS: BP 118/79
[2019-03-28] MEDS: MULTIVITAMINS TAB PO SCH (08:24)
[2019-03-28] MEDS: FLUTICASONE PROP 0.05% 16 GM SCH (08:24)
[2019-03-28] MEDS: GABAPENTIN 300 MG CAP PO SCH ×2 (08:25→21:15)
[2019-03-28] MEDS: FERROUS GLUCONATE 324 MG TAB PO SCH (08:25)
[2019-03-28] MEDS: CARVEDILOL 25 MG TABLET PO SCH ×2 (08:25→21:15)
[2019-03-28] MEDS: ASCORBIC ACID 500 MG TAB PO SCH (08:25)
[2019-03-28] MEDS: amLODIPine BESYL(*) 5 MG TAB PO SCH (08:25)
[2019-03-28] MEDS: DIGOXIN 0.125 MG TAB PO SCH (08:26)
[2019-03-28] MEDS: HYDROCHLOROTHIAZIDE 25 MG TAB PO SCH (08:26)
[2019-03-28] MEDS: RIVAROXABAN 10 MG TAB PO SCH (08:26)
[2019-03-28] MEDS: ATORVASTATIN 10 MG TAB PO SCH (08:27)
[2019-03-28] MEDS: PANTOPRAZOLE SOD 40 MG TABEC PO SCH (08:27)
[2019-03-28] MEDS: INSULIN HUM LISPRO 100 UN/ML 3 ML VIAL SUBQ PRN ×4 (08:28→22:00)
[2019-03-28] MEDS: INSULIN HUM ISO(NPH) 100 UN/ML 3 ML VIAL SUBQ SCH ×2 (08:28→17:36)
[2019-03-28] MEDS: ACETAMINOPHEN 325 MG TAB PO PRN (08:30)
[2019-03-28 15:40] VITALS: BP 174/58
[2019-03-28] MEDS: NITROFURANTOIN MACROCRYSTALS 50 MG PO SCH (21:15)
[2019-03-28] MEDS: MELATONIN 3 MG TAB PO SCH (21:15)
[2019-03-29 07:45] VITALS: BP 147/70
[2019-03-29] MEDS: INSULIN HUM LISPRO 100 UN/ML 3 ML VIAL SUBQ PRN ×4 (08:20→20:35)
[2019-03-29] MEDS: FLUTICASONE PROP 0.05% 16 GM SCH (09:09)
[2019-03-29] MEDS: CARVEDILOL 25 MG TABLET PO SCH ×2 (09:09→20:34)
[2019-03-29] MEDS: INSULIN HUM ISO(NPH) 100 UN/ML 3 ML VIAL SUBQ SCH ×2 (09:09→17:35)
[2019-03-29] MEDS: ATORVASTATIN 10 MG TAB PO SCH (09:09)
[2019-03-29] MEDS: ASCORBIC ACID 500 MG TAB PO SCH (09:10)
[2019-03-29] MEDS: MULTIVITAMINS TAB PO SCH (09:10)
[2019-03-29] MEDS: PANTOPRAZOLE SOD 40 MG TABEC PO SCH (09:10)
[2019-03-29] MEDS: FERROUS GLUCONATE 324 MG TAB PO SCH (09:10)
[2019-03-29] MEDS: GABAPENTIN 300 MG CAP PO SCH ×2 (09:10→20:34)
[2019-03-29] MEDS: amLODIPine BESYL(*) 5 MG TAB PO SCH (09:10)
[2019-03-29] MEDS: DIGOXIN 0.125 MG TAB PO SCH (09:10)
[2019-03-29] MEDS: RIVAROXABAN 10 MG TAB PO SCH (09:11)
[2019-03-29] MEDS: HYDROCHLOROTHIAZIDE 25 MG TAB PO SCH (09:11)
[2019-03-29 16:00] VITALS: BP 176/79
[2019-03-29] MEDS: ACETAMINOPHEN 325 MG TAB PO PRN (20:34)
[2019-03-29] MEDS: MELATONIN 3 MG TAB PO SCH (20:34)
[2019-03-29] MEDS: NITROFURANTOIN MACROCRYSTALS 50 MG PO SCH (20:34)
[2019-03-30 08:05] VITALS: BP 153/69
[2019-03-30] MEDS: FLUTICASONE PROP 0.05% 16 GM SCH (09:25)
[2019-03-30] MEDS: INSULIN HUM ISO(NPH) 100 UN/ML 3 ML VIAL SUBQ SCH ×2 (09:26→17:32)
[2019-03-30] MEDS: CARVEDILOL 25 MG TABLET PO SCH ×2 (09:26→20:52)
[2019-03-30] MEDS: PANTOPRAZOLE SOD 40 MG TABEC PO SCH (09:26)
[2019-03-30] MEDS: ATORVASTATIN 10 MG TAB PO SCH (09:27)
[2019-03-30] MEDS: amLODIPine BESYL(*) 5 MG TAB PO SCH (09:27)
[2019-03-30] MEDS: ASCORBIC ACID 500 MG TAB PO SCH (09:27)
[2019-03-30] MEDS: FERROUS GLUCONATE 324 MG TAB PO SCH (09:27)
[2019-03-30] MEDS: DIGOXIN 0.125 MG TAB PO SCH (09:27)
[2019-03-30] MEDS: HYDROCHLOROTHIAZIDE 25 MG TAB PO SCH (09:28)
[2019-03-30] MEDS: RIVAROXABAN 10 MG TAB PO SCH (09:28)
[2019-03-30] MEDS: MULTIVITAMINS TAB PO SCH (09:28)
[2019-03-30] MEDS: GABAPENTIN 300 MG CAP PO SCH ×2 (09:28→20:52)
[2019-03-30] MEDS: INSULIN HUM LISPRO 100 UN/ML 3 ML VIAL SUBQ PRN ×3 (12:33→20:53)
[2019-03-30 15:40] VITALS: BP 155/64
[2019-03-30] MEDS: NITROFURANTOIN MACROCRYSTALS 50 MG PO SCH (20:52)
[2019-03-30] MEDS: MELATONIN 3 MG TAB PO SCH (20:52)
[2019-03-30] MEDS: ACETAMINOPHEN 325 MG TAB PO PRN (20:52)
[2019-03-31 07:40] VITALS: BP 168/65
[2019-03-31] MEDS: ASCORBIC ACID 500 MG TAB PO SCH (08:39)
[2019-03-31] MEDS: HYDROCHLOROTHIAZIDE 25 MG TAB PO SCH (08:39)
[2019-03-31] MEDS: amLODIPine BESYL(*) 5 MG TAB PO SCH (08:39)
[2019-03-31] MEDS: FERROUS GLUCONATE 324 MG TAB PO SCH (08:39)
[2019-03-31] MEDS: DIGOXIN 0.125 MG TAB PO SCH (08:43)
[2019-03-31] MEDS: CARVEDILOL 25 MG TABLET PO SCH ×2 (08:43→20:42)
[2019-03-31] MEDS: RIVAROXABAN 10 MG TAB PO SCH (08:43)
[2019-03-31] MEDS: GABAPENTIN 300 MG CAP PO SCH ×2 (08:43→20:42)
[2019-03-31] MEDS: PANTOPRAZOLE SOD 40 MG TABEC PO SCH (08:43)
[2019-03-31] MEDS: ATORVASTATIN 10 MG TAB PO SCH (08:44)
[2019-03-31] MEDS: MULTIVITAMINS TAB PO SCH (08:44)
[2019-03-31] MEDS: ACETAMINOPHEN 325 MG TAB PO PRN ×2 (08:44→20:42)
[2019-03-31] MEDS: INSULIN HUM ISO(NPH) 100 UN/ML 3 ML VIAL SUBQ SCH ×2 (08:45→17:03)
[2019-03-31] MEDS: FLUTICASONE PROP 0.05% 16 GM SCH (08:46)
[2019-03-31] MEDS: INSULIN HUM LISPRO 100 UN/ML 3 ML VIAL SUBQ PRN ×4 (08:50→20:42)
[2019-03-31 15:36] VITALS: BP 140/60
--- NOTE | 2019-03-31 17:06 | Hospitalist Progress Note ---
Subjective Progress Notes Subjective No acute events since last exam. [facility]. Patient Complains of: Neurological: No: Syncope, Confusion Cardiovascular: No: Chest Pain, Palpitations Respiratory: No: Congestion, Shortness of Breath Physical Exam Vital Signs Date Time Temp Pulse Resp B/P (MAP) Pulse Ox O2 Delivery O2 Flow Rate FiO2 03/31/19 15:36 97.1 67 20 140/60 (86) 93 Nasal Cannula 2.5 Intake and Output 03/31/19 07:03 Intake Total 724 ml Balance 724 ml Intake Oral 724 ml # Voids 7 # Bowel Movements 5 General Appearance: Alert, Awake, No Acute Distress Cardiovascular: Normal Rhythm & Peripheral Pulses, Regular Rate and Rhythm Respiratory: Clear to Auscultation Psych: Alert & Oriented X3, Appropriate Mood & Affect Result Diagram: 03/28/192013 Assessment and Plan Problems: (1) Arm pain Status: Acute Assessment & Plan: The patient complains of pain in R neck, shoulder and arm. There has been no swelling and she is chronically anticoagulated. Will have PT assess as this seems to be musculoskeletal in nature. (2) Blood loss Status: Acute Assessment & Plan: Her Hgb has improved on most recent labs after adding a vitamin C to be taken with her iron. She is back on Xarelto, and has not had any gross bleeding. Protonix was decreased to once daily. (3) Bacterial pneumonia Status: Acute Assessment & Plan: Her chest x-ray showed a new right lower lobe infiltrate and her WBC was elevated. She has completed a full course of antibiotics for this. (4) UTI (urinary tract infection) Status: Acute Assessment & Plan: She was placed back on Bactrim but that culture was contaminated. We stopped the Bactrim and placed her back on her prophylactic Macrodantin (5) CHRONIC ATRIAL FIBRILLATION Status: Chronic Assessment & Plan: She is on chronic treatment with digoxin and Xarelto. Dig level is therapeutic. (6) Essential hypertension Status: Chronic Assessment & Plan: She is on chronic treatment with amlodipine and carvedilol. (7) Type II diabetes mellitus Status: Chronic Assessment & Plan: She has been on chronic treatment with NPH. She was also covered with sliding scale level #2. Blood sugars have been well controlled over all. (8) Acute renal failure Status: Acute Assessment & Plan: Mild. Most likely due to dehydration. She was admitted with creatinine of 1.4. It improved with gentle IV fluids to 1.1 while on the medical floor. (9) Follicular non-Hodgkin's lymphoma Status: Chronic Assessment & Plan: Low grade non-Hodgkin lymphoma/small lymphocytic leukemia: Per the most recent note from the Cancer Center, the plan is for continued active surveillance. She has not required treatment for this. (10) CAD (coronary artery disease) Status: Chronic Assessment & Plan: The patient's last echo showed an EF of 35-40% with global hypokinesis of the L ventricle. Continue carvedilol. 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 The [facility] increased the dose of her IVIG. Her most recent level was in the low 500s with repla cement. The plan was to continue this indefinitely. Unfortunately, patient did have a fall and sustained some fractures and was in and out of the hospital and rehabilitation, then followed by senior care. She had been off IVIG since about mid to late August 2018. She received a dose on January [facility] at the [facility]. She states that the cancer center is discontinuing her steroids with her IVIG infusions, due to elevated blood glucose levels after each infusion. (12) Frontal headache Status: Chronic Assessment & Plan: The patient states she wakes up without a headache and then develops pain over her R eye. She says she can remember having this since grade school. Continue Flonase for relief. Headaches have been much improved on the Flonase. (13) Edema Status: Chronic Assessment & Plan: Encouraged ambulation at least once daily, elevation of feet while sitting, and apply linh hose. Continue to monitor. Problem Qualifiers (1) Arm pain: Laterality: right Qualified Codes: M79.601 - Pain in right arm VIOLA CLAUDIO Mar 31, 2019 17:05
[2019-03-31] MEDS: MELATONIN 3 MG TAB PO SCH (20:42)
[2019-03-31] MEDS: NITROFURANTOIN MACROCRYSTALS 50 MG PO SCH (20:42)
[2019-04-01 07:05] VITALS: BP 151/70
[2019-04-01] MEDS: FLUTICASONE PROP 0.05% 16 GM SCH (08:28)
[2019-04-01] MEDS: INSULIN HUM ISO(NPH) 100 UN/ML 3 ML VIAL SUBQ SCH ×2 (08:29→16:40)
[2019-04-01] MEDS: GABAPENTIN 300 MG CAP PO SCH ×2 (08:29→20:44)
[2019-04-01] MEDS: INSULIN HUM LISPRO 100 UN/ML 3 ML VIAL SUBQ PRN ×4 (08:29→20:44)
[2019-04-01] MEDS: ASCORBIC ACID 500 MG TAB PO SCH (08:29)
[2019-04-01] MEDS: HYDROCHLOROTHIAZIDE 25 MG TAB PO SCH (08:29)
[2019-04-01] MEDS: ATORVASTATIN 10 MG TAB PO SCH (08:30)
[2019-04-01] MEDS: CARVEDILOL 25 MG TABLET PO SCH ×2 (08:30→20:44)
[2019-04-01] MEDS: RIVAROXABAN 10 MG TAB PO SCH (08:30)
[2019-04-01] MEDS: FERROUS GLUCONATE 324 MG TAB PO SCH (08:30)
[2019-04-01] MEDS: amLODIPine BESYL(*) 5 MG TAB PO SCH (08:30)
[2019-04-01] MEDS: PANTOPRAZOLE SOD 40 MG TABEC PO SCH (08:30)
[2019-04-01] MEDS: MULTIVITAMINS TAB PO SCH (08:30)
[2019-04-01] MEDS: DIGOXIN 0.125 MG TAB PO SCH (08:31)
--- NOTE | 2019-04-01 09:52 | Medical Nutrition Therapy ---
Nutrition Anthropometrics Height (Inches): 67.00 Height (Calculated Centimeters: 170.790106 Weight (Pounds): 157 Weight (Calculated Kilograms): 71.350 BMI: 25.4 Arnoldo Nutrition Score: Adequate Arnoldo Nutrition Risk Score: 16 Dietary Referral Nutrition Risk Factors: Special Diet Nutrition Risk Comment: Physical Findings Physical Appearance: BMI WNL Skin Appearance Skin Appearance: Edema Edema Location Modifier: Left Edema Location: Foot Type of Edema: Degree of Edema: 1+ Gastrointestinal Symptoms GI Symtoms: Change in Bowel Pattern Tube Present: Bowel Sounds: Recent Bowel Pattern: Diarrhea Stool Characteristics: Loose Nutritional Diagnosis Nutritional Risk Acuity 2: Chronic Renal Failure, Blood Glucose > 300mg/dl Nutritional Risk Acuity 4: Modified Diet Past Medical History: CAD, HTN, T2DM, CKD-3, non-Hodkins lymphoma, CHF, chronic edema, chronic UTI, hypercholesteremia, urinary incontinence, chronic renal disease, pulmonary nodule, GI bleed, anemia, ribs (multiple fractures), hypogammagloblinemia, lumbosacral spinal surgery, tonsillectomy, and cataract extraction and CABG, T2DM, chronic afib. Nutritional Acuity: 2-Moderate Nutrition Diagnosis: Inconsistent Carb. Intake Nutrition Etiology: Physiological Causes Nutrition Problem/Etiology/Sym: Inconsistent carb intake as related to physiologic causes as evidenced by T2DM and whole blood glucose of over 300. Energy Requirement: 1812 (25kcal/kg. Pt does not have a ht at this time to assess energy needs. nursing will obtain ht on .) Protein Requirement: 73 (1 g protein/kg. Slightly elevated due to illness and age.) Fluid Requirement: 1812 (1mL/kcal) Diet Type: Diabetic Nutrition Intervention: Cont diet as ordered, Encourage intake, HS snack Drug: Diuretics Nutrition Monitoring & Eval Nutrition Goals: Eat 75-100% Meal Nutrition Follow-Up: Good Intake Nutrition Monitoring: wt, intakes, BGs RD Patient Assessment Time: [address] Assessment Type: RD Re-Assessment Patient Nutrition Acuity: 2-Moderate Follow Up Date: Apr 08, 2019 Nutritional Comment: Pt admitted to [facility] from med/surg due to weakness. Recent fall and bacterial pneumonia. Hx of acute diastolic heart failure, hypercholesteremia, essential HTN, T2DM. CAD, CKD. and chronic a-fib. Pt currently on ADA diet with 50-100% intakes at meals and refusal of 1 snack. Pt has 1+ edema in both feet. Pt is taking insuling, a multivitamin, and rivaroxaban. No ht at this time, nursing will obtain ht on 02/01/49. Whole blood glucose on 01/31 was 136 and 311. On 02/01 whole blood glucose was 87. Monitor for adequate intake, and blood glucose levels. -AKSwathi 02/03/19-Visited with pt this am. Pt reports nausea, RN was aware. Discussed some ways to combat nausea. Pt currently on diabetic diet eating 86% of small to regular meals. Blood glucose remains elevated 219-258 range yesterday. Had one low BG at 60. Wt remains stable. JACKIE 02/10 Pt cont on diabetic diet, eatin 75-100% of small to regular portions. BG cont elevated in 200's with occasional 300's. Pt is recieving insulin. Hgb low at 10.4, Hct low at 32.4. Wt is stable. Will cont to monitor and encourage intake. BK 02/17 Pt cont on diabetic diet. Intake average 88% of small to regular portions. BG cont elevated in 200's with occasional 300's. Pt is recieving insulin. Wt is stable. Will cont to monitor and encourage intake. NEHEMIAS 02/24/19-Reviewed recent charting. Spoke with pt this afternoon about focusing on proteins/non-starchy vegetables/fats (foods that won't raise her BG). Average intake for last week ~81%. Choosing lots of high glycemic index foods. Insulin was adjusted recently. BGs running 140-257 past couple days with a couple low morning BGs of 54 and 57. Pt wt is down ~5 lbs from 02/17/19. Will continue to monitor intakes, BG, weight.JACKIE 03/03/19: Pt eating well mostly 100% of meals. Continuing to order lots of high glycemic foods at meals. Wt is fluctuating, current wt 159 lbs previous wt on 02/24/19 was 159 lbs. Pt does have significant edema RLE 2+, LLE 1+, and R Foot 2+. Average pre-prandial blood glucose since last assessment wa 228. Post prandial average blood glucose was 255. Pt recieving humalog and NPH 30 units in the am, and 25 units at 5:00pm. Will continue to monitor intakes, weights, blood glucose, pt desire for nutrition education.JACKIE 03/10/19: Reviewed labs, weight, intakes. Pt eating well, mostly 100% of meals. Preprandial blood glucose mostly within target ranges, a couple high readings of 230 and 254. Postprandial blood glucose has been averaging 214mg/dL. Wt is down slightly ~4lbs since 03/05, however pt edema has improved to RLE 1+ pitting since last assess. Will continue to monitor intake, weights, and BGs.JACKIE 03/17/19: Spoke with pt briefly. Appetite is good. She is eating mostly 100% of meals plus snacks. Average preprandial BG ~178 and average postprandial BG are ~223 since last assess on 03/10/19. Her wt is up slightly by 2 lbs she aslo has BLE edema. Will continue to monitor weight, intakes, BGs.JACKIE 03/24/19: Eating well continues to eat 100% of meals plus snacks. BGs still running high average preprandial BG was 180, average post prandial was 210. Has significant edema, wt on 03/24 is 160 lbs. Will continue to monitor wt, appetite, and BGs.JACKIE 04/01/19: Pt continues to eat well, 100% x all meals in addition to snacks. BG continues to be elevated. Average preprandial BG 188. Average postprandial BG 333. Noted a couple very elevated BGs on 03/28/19 of 477, 505, and 519. 03/28/19 pt had servings of starch and a dessert at dinner. Wt is down ~3 lbs from 160 lbs on (03/24/19) despite increasing edema. Pt recieving HCTZ for edema. Continues on rapid acting and intermediate acting insulin. Currently taking ferrous gluconate, ascorbic acid, and MVI. May want need to monitor K+ as HCTZ is potassium depleting. Anticipate weight changes with diuretic therapy. Will continue to monitor wt, intakes, BGs.REYNOLD EWING Apr 01, 2019 09:52
[2019-04-01 15:04] VITALS: BP 159/67
[2019-04-01] MEDS: NITROFURANTOIN MACROCRYSTALS 50 MG PO SCH (20:44)
[2019-04-01] MEDS: ACETAMINOPHEN 325 MG TAB PO PRN (20:44)
[2019-04-01] MEDS: MELATONIN 3 MG TAB PO SCH (20:45)
[2019-04-02 06:54] LABS: PLATELET COUNT, AUTOMATED 146 K/uL (150-450)
[2019-04-02 08:25] VITALS: BP 145/64
[2019-04-02] MEDS: INSULIN HUM LISPRO 100 UN/ML 3 ML VIAL SUBQ PRN ×4 (09:03→20:57)
[2019-04-02] MEDS: INSULIN HUM ISO(NPH) 100 UN/ML 3 ML VIAL SUBQ SCH ×2 (09:03→16:48)
[2019-04-02] MEDS: GABAPENTIN 300 MG CAP PO SCH ×2 (09:16→20:57)
[2019-04-02] MEDS: DIGOXIN 0.125 MG TAB PO SCH (09:16)
[2019-04-02] MEDS: FLUTICASONE PROP 0.05% 16 GM SCH (09:16)
[2019-04-02] MEDS: ATORVASTATIN 10 MG TAB PO SCH (09:16)
[2019-04-02] MEDS: ASCORBIC ACID 500 MG TAB PO SCH (09:17)
[2019-04-02] MEDS: HYDROCHLOROTHIAZIDE 25 MG TAB PO SCH (09:17)
[2019-04-02] MEDS: MULTIVITAMINS TAB PO SCH (09:17)
[2019-04-02] MEDS: CARVEDILOL 25 MG TABLET PO SCH ×2 (09:17→20:57)
[2019-04-02] MEDS: PANTOPRAZOLE SOD 40 MG TABEC PO SCH (09:17)
[2019-04-02] MEDS: RIVAROXABAN 10 MG TAB PO SCH (09:17)
[2019-04-02] MEDS: amLODIPine BESYL(*) 5 MG TAB PO SCH (09:17)
[2019-04-02] MEDS: FERROUS GLUCONATE 324 MG TAB PO SCH (09:17)
[2019-04-02 16:30] VITALS: BP 165/70
[2019-04-02] MEDS: MELATONIN 3 MG TAB PO SCH (20:57)
[2019-04-02] MEDS: NITROFURANTOIN MACROCRYSTALS 50 MG PO SCH (20:57)
[2019-04-02] MEDS: ACETAMINOPHEN 325 MG TAB PO PRN (20:57)
[2019-04-03 08:05] VITALS: BP 171/68
[2019-04-03] MEDS: FLUTICASONE PROP 0.05% 16 GM SCH (08:56)
[2019-04-03] MEDS: DIGOXIN 0.125 MG TAB PO SCH (08:57)
[2019-04-03] MEDS: PANTOPRAZOLE SOD 40 MG TABEC PO SCH (08:57)
[2019-04-03] MEDS: INSULIN HUM ISO(NPH) 100 UN/ML 3 ML VIAL SUBQ SCH ×2 (08:57→16:32)
[2019-04-03] MEDS: FERROUS GLUCONATE 324 MG TAB PO SCH (08:57)
[2019-04-03] MEDS: MULTIVITAMINS TAB PO SCH (08:57)
[2019-04-03] MEDS: GABAPENTIN 300 MG CAP PO SCH ×2 (08:58→20:44)
[2019-04-03] MEDS: ATORVASTATIN 10 MG TAB PO SCH (08:58)
[2019-04-03] MEDS: RIVAROXABAN 10 MG TAB PO SCH (08:58)
[2019-04-03] MEDS: CARVEDILOL 25 MG TABLET PO SCH ×2 (08:58→20:44)
[2019-04-03] MEDS: amLODIPine BESYL(*) 5 MG TAB PO SCH (08:58)
[2019-04-03] MEDS: HYDROCHLOROTHIAZIDE 25 MG TAB PO SCH (08:58)
[2019-04-03] MEDS: ASCORBIC ACID 500 MG TAB PO SCH (08:58)
[2019-04-03] MEDS: INSULIN HUM LISPRO 100 UN/ML 3 ML VIAL SUBQ PRN ×3 (12:40→20:44)
[2019-04-03 16:04] VITALS: BP 168/77
[2019-04-03] MEDS: MELATONIN 3 MG TAB PO SCH (20:44)
[2019-04-03] MEDS: ACETAMINOPHEN 325 MG TAB PO PRN (20:44)
[2019-04-03] MEDS: NITROFURANTOIN MACROCRYSTALS 50 MG PO SCH (20:44)
[2019-04-04 07:58] VITALS: BP 163/71
[2019-04-04] MEDS: FLUTICASONE PROP 0.05% 16 GM SCH (08:52)
[2019-04-04] MEDS: CARVEDILOL 25 MG TABLET PO SCH ×2 (08:53→21:06)
[2019-04-04] MEDS: DIGOXIN 0.125 MG TAB PO SCH (08:53)
[2019-04-04] MEDS: RIVAROXABAN 10 MG TAB PO SCH (08:54)
[2019-04-04] MEDS: FERROUS GLUCONATE 324 MG TAB PO SCH (08:54)
[2019-04-04] MEDS: ASCORBIC ACID 500 MG TAB PO SCH (08:54)
[2019-04-04] MEDS: HYDROCHLOROTHIAZIDE 25 MG TAB PO SCH (08:54)
[2019-04-04] MEDS: amLODIPine BESYL(*) 5 MG TAB PO SCH (08:54)
[2019-04-04] MEDS: PANTOPRAZOLE SOD 40 MG TABEC PO SCH (08:54)
[2019-04-04] MEDS: MULTIVITAMINS TAB PO SCH (08:54)
[2019-04-04] MEDS: GABAPENTIN 300 MG CAP PO SCH ×2 (08:54→21:06)
[2019-04-04] MEDS: INSULIN HUM LISPRO 100 UN/ML 3 ML VIAL SUBQ PRN ×4 (08:55→21:07)
[2019-04-04] MEDS: ATORVASTATIN 10 MG TAB PO SCH (08:55)
[2019-04-04] MEDS: INSULIN HUM ISO(NPH) 100 UN/ML 3 ML VIAL SUBQ SCH ×2 (08:56→17:00)
[2019-04-04 20:35] VITALS: BP 164/79
[2019-04-04] MEDS: ACETAMINOPHEN 325 MG TAB PO PRN (21:05)
[2019-04-04] MEDS: MELATONIN 3 MG TAB PO SCH (21:06)
[2019-04-04] MEDS: NITROFURANTOIN MACROCRYSTALS 50 MG PO SCH (21:06)
[2019-04-05 07:39] VITALS: BP 162/71
[2019-04-05] MEDS: FLUTICASONE PROP 0.05% 16 GM SCH (09:46)
[2019-04-05] MEDS: RIVAROXABAN 10 MG TAB PO SCH (09:47)
[2019-04-05] MEDS: HYDROCHLOROTHIAZIDE 25 MG TAB PO SCH (09:47)
[2019-04-05] MEDS: GABAPENTIN 300 MG CAP PO SCH ×2 (09:47→20:45)
[2019-04-05] MEDS: amLODIPine BESYL(*) 5 MG TAB PO SCH (09:47)
[2019-04-05] MEDS: ATORVASTATIN 10 MG TAB PO SCH (09:48)
[2019-04-05] MEDS: DIGOXIN 0.125 MG TAB PO SCH (09:49)
[2019-04-05] MEDS: PANTOPRAZOLE SOD 40 MG TABEC PO SCH (09:50)
[2019-04-05] MEDS: MULTIVITAMINS TAB PO SCH (09:50)
[2019-04-05] MEDS: ASCORBIC ACID 500 MG TAB PO SCH (09:50)
[2019-04-05] MEDS: FERROUS GLUCONATE 324 MG TAB PO SCH (09:50)
[2019-04-05] MEDS: CARVEDILOL 25 MG TABLET PO SCH ×2 (09:50→20:45)
[2019-04-05] MEDS: INSULIN HUM ISO(NPH) 100 UN/ML 3 ML VIAL SUBQ SCH ×2 (09:52→17:39)
[2019-04-05] MEDS: INSULIN HUM LISPRO 100 UN/ML 3 ML VIAL SUBQ PRN ×3 (12:35→20:45)
[2019-04-05 15:57] VITALS: BP 171/73
[2019-04-05] MEDS: MELATONIN 3 MG TAB PO SCH (20:44)
[2019-04-05] MEDS: ACETAMINOPHEN 325 MG TAB PO PRN (20:45)
[2019-04-05] MEDS: NITROFURANTOIN MACROCRYSTALS 50 MG PO SCH (20:45)
[2019-04-06 07:50] VITALS: BP 167/75
[2019-04-06] MEDS: FLUTICASONE PROP 0.05% 16 GM SCH (08:35)
[2019-04-06] MEDS: DIGOXIN 0.125 MG TAB PO SCH (08:36)
[2019-04-06] MEDS: ATORVASTATIN 10 MG TAB PO SCH (08:36)
[2019-04-06] MEDS: GABAPENTIN 300 MG CAP PO SCH ×2 (08:37→20:40)
[2019-04-06] MEDS: MULTIVITAMINS TAB PO SCH (08:37)
[2019-04-06] MEDS: PANTOPRAZOLE SOD 40 MG TABEC PO SCH (08:37)
[2019-04-06] MEDS: ASCORBIC ACID 500 MG TAB PO SCH (08:37)
[2019-04-06] MEDS: amLODIPine BESYL(*) 5 MG TAB PO SCH (08:37)
[2019-04-06] MEDS: RIVAROXABAN 10 MG TAB PO SCH (08:38)
[2019-04-06] MEDS: INSULIN HUM ISO(NPH) 100 UN/ML 3 ML VIAL SUBQ SCH ×2 (08:39→17:27)
[2019-04-06] MEDS: HYDROCHLOROTHIAZIDE 25 MG TAB PO SCH (08:40)
[2019-04-06] MEDS: CARVEDILOL 25 MG TABLET PO SCH ×2 (08:41→20:40)
[2019-04-06] MEDS: FERROUS GLUCONATE 324 MG TAB PO SCH (08:41)
[2019-04-06] MEDS: INSULIN HUM LISPRO 100 UN/ML 3 ML VIAL SUBQ PRN ×3 (12:32→20:42)
[2019-04-06 16:16] VITALS: BP 170/74
[2019-04-06] MEDS: ACETAMINOPHEN 325 MG TAB PO PRN (20:40)
[2019-04-06] MEDS: NITROFURANTOIN MACROCRYSTALS 50 MG PO SCH (20:40)
[2019-04-06] MEDS: MELATONIN 3 MG TAB PO SCH (20:40)
[2019-04-07 07:45] VITALS: BP 167/73
[2019-04-07] MEDS: RIVAROXABAN 10 MG TAB PO SCH (09:15)
[2019-04-07] MEDS: amLODIPine BESYL(*) 5 MG TAB PO SCH (09:16)
[2019-04-07] MEDS: GABAPENTIN 300 MG CAP PO SCH ×2 (09:16→20:57)
[2019-04-07] MEDS: DIGOXIN 0.125 MG TAB PO SCH (09:16)
[2019-04-07] MEDS: ASCORBIC ACID 500 MG TAB PO SCH (09:16)
[2019-04-07] MEDS: HYDROCHLOROTHIAZIDE 25 MG TAB PO SCH (09:16)
[2019-04-07] MEDS: ATORVASTATIN 10 MG TAB PO SCH (09:17)
[2019-04-07] MEDS: FERROUS GLUCONATE 324 MG TAB PO SCH (09:17)
[2019-04-07] MEDS: PANTOPRAZOLE SOD 40 MG TABEC PO SCH (09:17)
[2019-04-07] MEDS: CARVEDILOL 25 MG TABLET PO SCH ×2 (09:17→20:57)
[2019-04-07] MEDS: MULTIVITAMINS TAB PO SCH (09:17)
[2019-04-07] MEDS: FLUTICASONE PROP 0.05% 16 GM SCH (09:21)
[2019-04-07] MEDS: INSULIN HUM LISPRO 100 UN/ML 3 ML VIAL SUBQ PRN ×4 (09:22→20:58)
[2019-04-07] MEDS: INSULIN HUM ISO(NPH) 100 UN/ML 3 ML VIAL SUBQ SCH ×2 (09:24→18:05)
[2019-04-07 16:15] VITALS: BP 174/64
[2019-04-07] MEDS: ACETAMINOPHEN 325 MG TAB PO PRN (20:57)
[2019-04-07] MEDS: MELATONIN 3 MG TAB PO SCH (20:57)
[2019-04-07] MEDS: NITROFURANTOIN MACROCRYSTALS 50 MG PO SCH (20:57)
[2019-04-08 07:26] VITALS: BP 171/72
--- NOTE | 2019-04-08 08:44 | Medical Nutrition Therapy ---
Nutrition Anthropometrics Height (Inches): 67.00 Height (Calculated Centimeters: 170.014330 Weight (Pounds): 153 Weight (Calculated Kilograms): 69.626 BMI: 24.0 Arnoldo Nutrition Score: Adequate Arnoldo Nutrition Risk Score: 17 Dietary Referral Nutrition Risk Factors: Special Diet Nutrition Risk Comment: Physical Findings Physical Appearance: BMI WNL Skin Appearance Skin Appearance: Edema Edema Location Modifier: Left Edema Location: Foot Type of Edema: Degree of Edema: 2+ Gastrointestinal Symptoms GI Symtoms: Change in Bowel Pattern Tube Present: Bowel Sounds: Recent Bowel Pattern: Diarrhea Stool Characteristics: Loose Nutritional Diagnosis Nutritional Risk Acuity 2: Chronic Renal Failure, Blood Glucose > 300mg/dl Nutritional Risk Acuity 4: Modified Diet Past Medical History: CAD, HTN, T2DM, CKD-3, non-Hodkins lymphoma, CHF, chronic edema, chronic UTI, hypercholesteremia, urinary incontinence, chronic renal disease, pulmonary nodule, GI bleed, anemia, ribs (multiple fractures), hypogammagloblinemia, lumbosacral spinal surgery, tonsillectomy, and cataract extraction and CABG, T2DM, chronic afib. Nutritional Acuity: 2-Moderate Nutrition Diagnosis: Inconsistent Carb. Intake Nutrition Etiology: Physiological Causes Nutrition Problem/Etiology/Sym: Inconsistent carb intake as related to physiologic causes as evidenced by T2DM and whole blood glucose of over 300. Energy Requirement: 1812 (25kcal/kg. Pt does not have a ht at this time to assess energy needs. nursing will obtain ht on .) Protein Requirement: 73 (1 g protein/kg. Slightly elevated due to illness and age.) Fluid Requirement: 1812 (1mL/kcal) Diet Type: Diabetic Nutrition Intervention: Cont diet as ordered, HS snack Drug: Diuretics Drug/Nutrition Recommendations: Check Serum K+ Nutrition Monitoring & Eval Nutrition Goals: Eat 75-100% Meal Nutrition Follow-Up: Good Intake Nutrition Monitoring: BGs, Weight, K+ RD Patient Assessment Time: [address] Assessment Type: RD Re-Assessment Patient Nutrition Acuity: 2-Moderate Follow Up Date: Apr 15, 2019 Nutritional Comment: Pt admitted to [facility] from med/surg due to weakness. Recent fall and bacterial pneumonia. Hx of acute diastolic heart failure, hypercholesteremia, essential HTN, T2DM. CAD, CKD. and chronic a-fib. Pt currently on ADA diet with 50-100% intakes at meals and refusal of 1 snack. Pt has 1+ edema in both feet. Pt is taking insuling, a multivitamin, and rivaroxaban. No ht at this time, nursing will obtain ht on 02/01/49. Whole blood glucose on 01/31 was 136 and 311. On 02/01 whole blood glucose was 87. Monitor for adequate intake, and blood glucose levels. -AKG 02/03/19-Visited with pt this am. Pt reports nausea, RN was aware. Discussed some ways to combat nausea. Pt currently on diabetic diet eating 86% of small to regular meals. Blood glucose remains elevated 219-258 range yesterday. Had one low BG at 60. Wt remains stable. JACKIE 02/10 Pt cont on diabetic diet, eatin 75-100% of small to regular portions. BG cont elevated in 200's with occasional 300's. Pt is recieving insulin. Hgb low at 10.4, Hct low at 32.4. Wt is stable. Will cont to monitor and encourage intake. BK 02/17 Pt cont on diabetic diet. Intake average 88% of small to regular portions. BG cont elevated in 200's with occasional 300's. Pt is recieving insulin. Wt is stable. Will cont to monitor and encourage intake. BK 02/24/19-Reviewed recent charting. Spoke with pt this afternoon about focusing on proteins/non-starchy vegetables/fats (foods that won't raise her BG). Average intake for last week ~81%. Choosing lots of high glycemic index foods. Insulin was adjusted recently. BGs running 140-257 past couple days with a couple low morning BGs of 54 and 57. Pt wt is down ~5 lbs from 02/17/19. Will continue to monitor intakes, BG, weight.JACKIE 03/03/19: Pt eating well mostly 100% of meals. Continuing to order lots of high glycemic foods at meals. Wt is fluctuating, current wt 159 lbs previous wt on 02/24/19 was 159 lbs. Pt does have significant edema RLE 2+, LLE 1+, and R Foot 2+. Average pre-prandial blood glucose since last assessment wa 228. Post prandial average blood glucose was 255. Pt recieving humalog and NPH 30 units in the am, and 25 units at 5:00pm. Will continue to monitor intakes, weights, blood glucose, pt desire for nutrition education. 03/10/19: Reviewed labs, weight, intakes. Pt eating well, mostly 100% of meals. Preprandial blood glucose mostly within target ranges, a couple high readings of 230 and 254. Postprandial blood glucose has been averaging 214mg/dL. Wt is down slightly ~4lbs since 03/05, however pt edema has improved to RLE 1+ pitting since last assess. Will continue to monitor intake, weights, and BGs.JACKIE 03/17/19: Spoke with pt briefly. Appetite is good. She is eating mostly 100% of meals plus snacks. Average preprandial BG ~178 and average postprandial BG are ~223 since last assess on 03/10/19. Her wt is up slightly by 2 lbs she aslo has BLE edema. Will continue to monitor weight, intakes, BGs. 03/24/19: Eating well continues to eat 100% of meals plus snacks. BGs still running high average preprandial BG was 180, average post prandial was 210. Has significant edema, wt on 03/24 is 160 lbs. Will continue to monitor wt, appetite, and BGs.JACKIE 04/01/19: Pt continues to eat well, 100% x all meals in addition to snacks. BG continues to be elevated. Average preprandial BG 188. Average postprandial BG 333. Noted a couple very elevated BGs on 03/28/19 of 477, 505, and 519. 03/28/19 pt had servings of starch and a dessert at dinner. Wt is down ~3 lbs from 160 lbs on (03/24/19) despite increasing edema. Pt recieving HCTZ for edema. Continues on rapid acting and intermediate acting insulin. Currently taking ferrous gluconate, ascorbic acid, and MVI. May want need to monitor K+ as HCTZ is potassium depleting. Anticipate weight changes with diuretic therapy. Will continue to monitor wt, intakes, BGs. 04/08/19: Pt continues on ADA diet, eating well 92% average over the past week. Blood glucose continues to be elevated. Mean preprandial, and postprandial blood was 190 and 271 respectively. Recommend increasing meal time insulin to bring blood glucose within ADA/Endocrine society target ranges. Pt wt down four pounds since last assess, continues on HCTZ. Will continue to monitor intakes, BGs, and weight.REYNOLD EWING Apr 08, 2019 08:43
[2019-04-08] MEDS: RIVAROXABAN 10 MG TAB PO SCH (09:15)
[2019-04-08] MEDS: CARVEDILOL 25 MG TABLET PO SCH ×2 (09:15→21:16)
[2019-04-08] MEDS: GABAPENTIN 300 MG CAP PO SCH ×2 (09:15→21:17)
[2019-04-08] MEDS: PANTOPRAZOLE SOD 40 MG TABEC PO SCH (09:15)
[2019-04-08] MEDS: FLUTICASONE PROP 0.05% 16 GM SCH (09:15)
[2019-04-08] MEDS: MULTIVITAMINS TAB PO SCH (09:15)
[2019-04-08] MEDS: DIGOXIN 0.125 MG TAB PO SCH (09:15)
[2019-04-08] MEDS: ASCORBIC ACID 500 MG TAB PO SCH (09:16)
[2019-04-08] MEDS: INSULIN HUM ISO(NPH) 100 UN/ML 3 ML VIAL SUBQ SCH ×2 (09:16→17:28)
[2019-04-08] MEDS: HYDROCHLOROTHIAZIDE 25 MG TAB PO SCH (09:16)
[2019-04-08] MEDS: amLODIPine BESYL(*) 5 MG TAB PO SCH (09:16)
[2019-04-08] MEDS: ATORVASTATIN 10 MG TAB PO SCH (09:16)
[2019-04-08] MEDS: FERROUS GLUCONATE 324 MG TAB PO SCH (09:16)
[2019-04-08] MEDS: INSULIN HUM LISPRO 100 UN/ML 3 ML VIAL SUBQ PRN ×4 (09:17→21:16)
--- NOTE | 2019-04-08 16:20 | PT ECF NOTE ---
Type of Note: Re-evaluation for stair training Primary Medical Diagnosis: Weakness Physical Therapy Evaluation Date: 04/08/19 SUBJECTIVE: Prior Hospitalization: 01/27/2019 -01/31/2019 for pneumonia, See EMR for other admissions Prior Level of Function: Ambulating with RW Prior Living Status: Single level house, Alone, Son comes over once a week to assist with any needs Pt plans to DC to [facility] Community Services: n/a Home Accessibility: n/a Equipment Owned: Front wheeled walker Medical Complications/Past Medical History: See EMR OBJECTIVE: Bed Mobility: not observed. Transfers: Mod I Assistive Device: Front wheeled walker Gait: Mod I x 400' with RW and 1 seated rest Assistive device: Front wheeled walker Stairs: 8 stair x SBA Assistive device: 1 or 2 rails ASSESSMENT: Pt demonstrates safety and independence with functional mobility including negotiation of 8 stairs. Pt is safe to DC to [facility] when medically appropriate. Recommend continuation of walking program with nursing while at [facility]. PLAN: Recommend continued 24 hour care/Assisted Living and continued home exercise program including walking with nursing. Thank you for this referral. If you have any questions, concerns, or comments about this report or plan, please contact me at . Nicolasa Ortega, PT, DPT, GCS MTDD
[2019-04-08 16:45] VITALS: BP 165/79
[2019-04-08] MEDS: MELATONIN 3 MG TAB PO SCH (21:16)
[2019-04-08] MEDS: NITROFURANTOIN MACROCRYSTALS 50 MG PO SCH (21:16)
[2019-04-08] MEDS: ACETAMINOPHEN 325 MG TAB PO PRN (21:16)
[2019-04-09 07:20] VITALS: BP 164/67
[2019-04-09] MEDS: FLUTICASONE PROP 0.05% 16 GM SCH (09:34)
[2019-04-09] MEDS: MULTIVITAMINS TAB PO SCH (09:35)
[2019-04-09] MEDS: PANTOPRAZOLE SOD 40 MG TABEC PO SCH (09:35)
[2019-04-09] MEDS: HYDROCHLOROTHIAZIDE 25 MG TAB PO SCH (09:35)
[2019-04-09] MEDS: ASCORBIC ACID 500 MG TAB PO SCH (09:35)
[2019-04-09] MEDS: CARVEDILOL 25 MG TABLET PO SCH ×2 (09:35→21:15)
[2019-04-09] MEDS: FERROUS GLUCONATE 324 MG TAB PO SCH (09:35)
[2019-04-09] MEDS: GABAPENTIN 300 MG CAP PO SCH ×2 (09:35→21:15)
[2019-04-09] MEDS: DIGOXIN 0.125 MG TAB PO SCH (09:36)
[2019-04-09] MEDS: RIVAROXABAN 10 MG TAB PO SCH (09:36)
[2019-04-09] MEDS: ATORVASTATIN 10 MG TAB PO SCH (09:36)
[2019-04-09] MEDS: amLODIPine BESYL(*) 5 MG TAB PO SCH (09:36)
[2019-04-09] MEDS: INSULIN HUM ISO(NPH) 100 UN/ML 3 ML VIAL SUBQ SCH ×2 (09:37→17:28)
[2019-04-09] MEDS: INSULIN HUM LISPRO 100 UN/ML 3 ML VIAL SUBQ PRN ×3 (12:24→21:16)
--- NOTE | 2019-04-09 13:55 | Hospitalist Progress Note ---
Subjective Progress Notes Subjective She denies any new problems. No fevers. Eating and drinking well. She is hoping to go to [facility] soon. Physical Exam Vital Signs Date Time Temp Pulse Resp B/P (MAP) Pulse Ox O2 Delivery O2 Flow Rate FiO2 04/09/19 10:33 97 Nasal Cannula 3.5 04/09/19 09:36 70 04/09/19 07:20 98.8 16 164/67 (99) Intake and Output 04/09/19 07:04 Intake Total 700 ml Balance 700 ml Intake Oral 700 ml # Voids 6 # Bowel Movements 1 Cardiovascular: Other (Irregular with soft systolic murmur) Respiratory: Clear to Auscultation GI: Soft and Non-Tender Extremities: Warm, Perfused, Edema (trace left/1+ right) Psych: Alert & Oriented X3 Assessment and Plan Problems: (1) Blood loss Status: Acute Assessment & Plan: Her Hgb has improved on most recent labs after adding a vitamin C to be taken with her iron. She is back on Xarelto, and has not had any gross bleeding. Protonix was decreased to once daily. Will recheck labs. (2) Bacterial pneumonia Status: Acute Assessment & Plan: Resolved. Her chest x-ray showed a new right lower lobe infiltrate and her WBC was elevated. She has completed a full course of antibiotics for this. (3) UTI (urinary tract infection) Status: Acute Assessment & Plan: She was placed back on Bactrim, but that culture was contaminated. We stopped the Bactrim and placed her back on her prophylactic Macrodantin (4) CHRONIC ATRIAL FIBRILLATION Status: Chronic Assessment & Plan: She is on chronic treatment with digoxin and Xarelto. Last digoxin level was therapeutic. (5) Essential hypertension Status: Chronic Assessment & Plan: She is on chronic treatment with amlodipine and carvedilol. (6) Type II diabetes mellitus Status: Chronic Assessment & Plan: She has been on chronic treatment with NPH. She is also covered with sliding scale level #2. Blood sugars have been well controlled overall. (7) Acute renal failure Status: Acute Assessment & Plan: Mild. Most likely due to dehydration. She was admitted with creatinine of 1.4. It improved with gentle IV fluids to 1.1 while on the medical floor. (8) Follicular non-Hodgkin's lymphoma Status: Chronic Assessment & Plan: Low grade non-Hodgkin lymphoma/small lymphocytic leukemia: Per the most recent note from the Cancer [facility], the plan is for continued active surveillance. She has not required treatment for this. (9) CAD (coronary artery disease) Status: Chronic Assessment & Plan: The patient's last echo showed an EF of 35-40% with global hypokinesis of the L ventricle. Continue carvedilol. 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 The Cancer Center increased the dose of her IVIG. Her most recent level was in the low 500s with replacement. The plan was to continue this indefinitely. Unfortunately, patient did have a fall and sustained some fractures and was in and out of the hospital and rehabilitation, then followed by long-term. She had been off IVIG since about mid to late August 2018. She received a dose on January 23 at the Cancer [facility]. She states that the [facility] center is discontinuing her steroids with her IVIG infusions, due to elevated blood glucose levels after each infusion. (11) Frontal headache Status: Chronic Assessment & Plan: The patient states she wakes up without a headache and then develops pain over her R eye. She says she can remember having this since grade school. Continue Flonase for relief. Headaches have been much improved on the Flonase. (12) Edema Status: Chronic Assessment & Plan: Encouraged ambulation at least once daily, elevation of feet while sitting, and apply linh hose. Continue to monitor. RAMIN THURMAN MD Apr 09, 2019 13:55
[2019-04-09 15:55] VITALS: BP 167/75
[2019-04-09] MEDS: MELATONIN 3 MG TAB PO SCH (21:15)
[2019-04-09] MEDS: ACETAMINOPHEN 325 MG TAB PO PRN (21:15)
[2019-04-09] MEDS: NITROFURANTOIN MACROCRYSTALS 50 MG PO SCH (21:15)
[2019-04-10 06:40] LABS: PLATELET COUNT, AUTOMATED 135 K/uL (150-450)
[2019-04-10 07:25] VITALS: BP 175/77
[2019-04-10] MEDS: amLODIPine BESYL(*) 5 MG TAB PO SCH (08:31)
[2019-04-10] MEDS: FLUTICASONE PROP 0.05% 16 GM SCH (08:31)
[2019-04-10] MEDS: RIVAROXABAN 10 MG TAB PO SCH (08:32)
[2019-04-10] MEDS: PANTOPRAZOLE SOD 40 MG TABEC PO SCH (08:33)
[2019-04-10] MEDS: HYDROCHLOROTHIAZIDE 25 MG TAB PO SCH (08:33)
[2019-04-10] MEDS: GABAPENTIN 300 MG CAP PO SCH ×2 (08:33→21:19)
[2019-04-10] MEDS: CARVEDILOL 25 MG TABLET PO SCH ×2 (08:33→21:19)
[2019-04-10] MEDS: MULTIVITAMINS TAB PO SCH (08:33)
[2019-04-10] MEDS: DIGOXIN 0.125 MG TAB PO SCH (08:34)
[2019-04-10] MEDS: ASCORBIC ACID 500 MG TAB PO SCH (08:34)
[2019-04-10] MEDS: ATORVASTATIN 10 MG TAB PO SCH (08:34)
[2019-04-10] MEDS: FERROUS GLUCONATE 324 MG TAB PO SCH (08:34)
[2019-04-10] MEDS: INSULIN HUM ISO(NPH) 100 UN/ML 3 ML VIAL SUBQ SCH ×2 (08:35→17:21)
[2019-04-10] MEDS: INSULIN HUM LISPRO 100 UN/ML 3 ML VIAL SUBQ PRN ×4 (08:37→21:20)
[2019-04-10 17:00] VITALS: BP 174/79
[2019-04-10] MEDS: MELATONIN 3 MG TAB PO SCH (21:18)
[2019-04-10] MEDS: NITROFURANTOIN MACROCRYSTALS 50 MG PO SCH (21:19)
[2019-04-10] MEDS: ACETAMINOPHEN 325 MG TAB PO PRN (21:19)
[2019-04-11 07:14] VITALS: BP 168/82
[2019-04-11] MEDS: GABAPENTIN 300 MG CAP PO SCH ×2 (08:27→21:04)
[2019-04-11] MEDS: ASCORBIC ACID 500 MG TAB PO SCH (08:27)
[2019-04-11] MEDS: FLUTICASONE PROP 0.05% 16 GM SCH (08:27)
[2019-04-11] MEDS: CARVEDILOL 25 MG TABLET PO SCH ×2 (08:27→21:04)
[2019-04-11] MEDS: RIVAROXABAN 10 MG TAB PO SCH (08:27)
[2019-04-11] MEDS: ATORVASTATIN 10 MG TAB PO SCH (08:28)
[2019-04-11] MEDS: PANTOPRAZOLE SOD 40 MG TABEC PO SCH (08:28)
[2019-04-11] MEDS: HYDROCHLOROTHIAZIDE 25 MG TAB PO SCH (08:28)
[2019-04-11] MEDS: FERROUS GLUCONATE 324 MG TAB PO SCH (08:29)
[2019-04-11] MEDS: MULTIVITAMINS TAB PO SCH (08:29)
[2019-04-11] MEDS: DIGOXIN 0.125 MG TAB PO SCH (08:29)
[2019-04-11] MEDS: amLODIPine BESYL(*) 5 MG TAB PO SCH (08:29)
[2019-04-11] MEDS: INSULIN HUM ISO(NPH) 100 UN/ML 3 ML VIAL SUBQ SCH ×2 (08:30→17:24)
[2019-04-11] MEDS: INSULIN HUM LISPRO 100 UN/ML 3 ML VIAL SUBQ PRN ×3 (13:21→21:06)
[2019-04-11 15:45] VITALS: BP 154/71
[2019-04-11] MEDS: ACETAMINOPHEN 325 MG TAB PO PRN (21:04)
[2019-04-11] MEDS: MELATONIN 3 MG TAB PO SCH (21:04)
[2019-04-11] MEDS: NITROFURANTOIN MACROCRYSTALS 50 MG PO SCH (21:05)
== END 2019-04-12 00:01 | disposition still patient (30) | DRG 951 ==
LOC: ECF 13:00
PROVIDERS: ADMIT Internal Medicine; ATTEND Internal Medicine
DX: Z02.9 Encounter for administrative examinations, unspecified (principal)
CPT/HCPCS: 36415; 36416; 36430; 71045; 80162; 81001; 82040; 82247; 82274; 82310; 82374; 82435; 82565; 82607; 82728; 82746; 82947; 82948; 83540; 83550; 84075; 84132; 84155; 84295; 84450; 84460; 84520; 85014; 85018; 85025; 85045; 86850; 86900; 86901; 86920; 87088; 97161; 97165; C9113; J7040; P9016; Q0163; S0119

== ENCOUNTER 2019-03-31 10:59 | Outpatient (RCR) | payer MEDICARE, OTHER ==
[2019-01-06 12:54] VITALS: BP 135/71
--- NOTE | 2019-01-07 17:25 | ONCOLOGY FOLLOW UP NOTE ---
EVENT DATE: January 06, 2019 CHIEF COMPLAINT Patient is here today for ongoing followup regarding her history of SLL and hypogammaglobulinemia. HISTORY OF PRESENT ILLNESS Elena returns today for ongoing followup. She was diagnosed with a low-grade non-Hodgkin lymphoma (SLL) after a CABG workup in 2012. She has numerous comorbidities including chronic kidney disease, COPD, heart disease. 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 She was on monthly IVIG due to frequent infections. She continues to have a low immunoglobulin level, and we anticipate that she needs IVIG indefinitely as she does begin to have infections when off treatment. She does get fatigued for about 24 hours after each dose, but currently, the benefits seem to outweigh the risks given her history of infections and other comorbidities. Unfortunately, most recently she was placed in a care facility as she had a fall and sustained multiple rib fractures. This happened on a couple of occasions over the last few months, and apparently she fell, went into rehab, fell again, and went back into rehab, and now is finally doing better. Elena tells me that she feels like she is on the mend and has not had any falls in the last couple of months. She has no pain. She has been off IVIG since approximately mid August of this year due to her frequent hospitalizations and transfer to rehab. She continues on her oxygen at 3L to 4L nasal cannula and continues to use a walker. PAST MEDICAL/SURGICAL HISTORY 1. Cataract surgery. 2. Coronary artery disease. 3. Coronary artery bypass grafting in 2012, followed by Dr. Ronald Swanson. 4. Hyperlipidemia. 5. Hypertension. 6. History of back surgery. 7. Diabetes. 8. Incidentally found low-grade lymphoma (SLL). 9. 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 FAMILY HISTORY Noncontributory. SOCIAL HISTORY Patient currently lives here in [place]. She has multiple children, grandchildren, and great-grandchildren here in the region. Her youngest great- grandchild is now almost 4 years old. ALLERGIES 1. IBUPROFEN. 2. TORADOL. MEDICATIONS 1. Acetaminophen 325 mg daily. 2. Amlodipine 10 mg daily. 3. Atorvastatin calcium 20 mg daily. 4. Carvedilol 25 mg p.o. b.i.d. 5. Cranberry extract 200 mg p.o. b.i.d. 6. Digoxin 125 mcg tablet p.o. q. day. 7. Gabapentin 300 mg p.o. b.i.d. 8. Insulin NPH 30 units subcutaneously b.i.d. 9. Melatonin 3 mg p.o. at bedtime. 10. Multivitamin one p.o. q. day. 11. Nitrofurantoin 50 mg p.o. at bedtime. 12. Xarelto 15 mg p.o. q. day. 13. Vitamins A and D topical q. day p.r.n. itching. REVIEW OF SYSTEMS CONSTITUTIONAL: Patient denies any recent fevers, chills, or night sweats. She denies any recent infections. She believes her appetite and weight are stable. HEENT: No vision changes. No headache. No tinnitus. No mouth sores. No dysphagia or odynophagia. CARDIOVASCULAR: No chest pain. No syncope or presyncope. RESPIRATORY: She does have some shortness of breath and some dyspnea on exertion. She continues to use supplemental oxygen 3L to 4L nasal cannula. No pleuritic chest pain. She does have a sedentary lifestyle. GASTROINTESTINAL: No abdominal pain, nausea, vomiting, constipation, diarrhea, bright red blood per rectum, or melena. She tells me that she felt woozy this morning, but tells me her blood sugar was low at 78. She tells me that after eating and drinking, this felt better. GENITOURINARY: No dysuria, hematuria, or discharge. MUSCULOSKELETAL: She has some generalized weakness, but no focal areas of pain. She is using a walker. PSYCHIATRIC: She denies any severe anxiety, severe depression, suicidal or homicidal ideation. ENDOCRINE: No heat or cold intolerance. She has generalized fatigue and weakness. HEMATOLOGIC: No free bleeding. No easy bruising. SKIN: No rash. No generalized pruritus. The remainder of a 12-point review of systems is performed today and is otherwise negative. PHYSICAL EXAMINATION VITAL SIGNS: T 97.3, P 90, R 16, BP 135/71, oxygen saturation 96% on 4L O2 via nasal cannula. GENERAL: In general, this is a pleasant, chronically ill-appearing 73-year-old woman who appears well hydrated, well nourished, and is in no acute distress. Currently rates pain at level "0/10." Currently rates fatigue level at "3/10." HEAD: Atraumatic, normocephalic. EYES: Sclerae anicteric. ENT, MOUTH: Moist mucous membranes. No mucositis. NECK: Supple. No lymphadenopathy. CARDIAC: History of AFib. Regular rate. LUNGS: Clear to the upper lobes, diminished at the bases bilaterally, wearing O2 nasal cannula. Respiratory effort is normal. ABDOMEN: Soft, nontender, nondistended. Bowel sounds positive x4. EXTREMITIES: No clubbing, cyanosis, or significant edema. MUSCULOSKELETAL: Patient is using a walker. PSYCHIATRIC: Mood and affect are appropriate. NEUROLOGIC: Patient is awake, alert, oriented x3. LABORATORY CBC on 12/18/18: WBC 8.2, ANC 5.9, hemoglobin 9.7, hematocrit 30.7%, platelets 349,000. Glucose was 267. Last immunoglobulin levels on 09/16/18: IgG low at 512, IgA normal at 74, IgM low at 33. IMPRESSION AND PLAN Ms. Saunders is a very pleasant 73-year-old female with the followin. Low grade non-Hodgkin lymphoma/small lymphocytic leukemia: Continue active surveillance. She has not required treatment for this. 2. 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 We increased the dose of her IVIG and continued the current frequency. Most recent level was in the low 500s with replacement. Our plan is to continue this indefinitely. Unfortunately, patient did have a fall and sustained some fractures and was in and out of the hospital and rehabilitation, then followed by half-way. She has been off IVIG now since about mid to late August 2018. She would like to reinitiate this. 3. I have written orders to restart IVIG as soon as possible. Patient will need transportation, and we discussed this with nursing. We will get her scheduled. 4. History of heart failure and diastolic heart dysfunction. 5. History of atrial fibrillation. 6. History of chronic obstructive pulmonary disease. 7. History of chronic kidney disease. 8. History of recent falls. Patient reports that she does feel better and stronger and feels that she is on the mend. 9. Patient will continue to follow up with our other physicians regarding her other comorbidities. 10. Patient will return to clinic in three months, in March 2019, for followup with her medical oncologist, Dr. Pedraza. NIRMAL
[2019-01-23 08:38] VITALS: BP_SYST 135; BP_SYST 136; BP_DIAS 50; BP_DIAS 71
[2019-01-23] MEDS: LIDOCAINE/SOD BICARB 8.4% SYR ID PRN (08:56)
[2019-01-23] MEDS: DEXAMETHASONE SOD PHOS 10MG/ML IVP PRN (09:53)
[2019-01-23] MEDS: diphenhydrAMINE 25 MG CAP PO PRN (09:53)
[2019-01-23] MEDS: ACETAMINOPHEN 325 MG TAB PO PRN (09:53)
[2019-01-23 14:29] VITALS: BP 162/71
[2019-01-28 07:58] VITALS: Wt 72.8 kg
[2019-02-27 08:17] VITALS: BP 174/81
[2019-02-27] MEDS: NS(*) 0.9% 100 ML BAG 100 ML IVPB PRN (09:14)
[2019-02-27] MEDS: LIDOCAINE/SOD BICARB 8.4% SYR ID PRN (09:14)
[2019-02-27] MEDS: diphenhydrAMINE 25 MG CAP PO PRN (09:16)
[2019-02-27] MEDS: DEXAMETHASONE SOD PHOS 10MG/ML IVP PRN (09:16)
[2019-02-27 09:17] LABS: PLATELET COUNT, AUTOMATED 293 K/uL (150-450)
[2019-02-27] MEDS: ACETAMINOPHEN 325 MG TAB PO PRN (09:17)
[2019-02-27 12:30] VITALS: BP 152/75
--- NOTE | 2019-03-25 14:43 | NUR ---
SW attended patient and her sister in care conference today. Medicaid still processing application, unclear whether or not patient is serving her penalty now. The assistant tennis professional, Yvette, is unclear about the rules for this type of case. The patient decided she would continue staying at the hospital while she is waiting for medicaid approval. Pt requested SW to start looking into options in [place], since now the patient's sister is living in [place] now. DUSTIN will send pt's sister, Yumiko, information on facilities in [place]. Yumiko Trevino - [phone] [email or web address]
[2019-03-27 12:43] VITALS: BP 163/82
[2019-03-27] MEDS: diphenhydrAMINE 25 MG CAP PO PRN (12:47)
[2019-03-27] MEDS: ACETAMINOPHEN 325 MG TAB PO PRN (12:48)
[2019-03-27] MEDS: DEXAMETHASONE SOD PHOS 10MG/ML IVP PRN (12:48)
[2019-03-27 12:50] LABS: PLATELET COUNT, AUTOMATED 226 K/uL (150-450)
[2019-03-27] MEDS: NS(*) 0.9% 100 ML BAG 100 ML IVPB PRN (13:00)
[2019-03-27] MEDS: LIDOCAINE/SOD BICARB 8.4% SYR ID PRN (13:00)
[2019-03-27 15:24] VITALS: BP 186/77
[~2019-03-31 10:59] MED LIST changes: +DEXTROSE 5%(*) 100 ML BAG 100 ML IVPB PRN; +IMMU GLOB(IGG) 10GR/100ML VIAL 40 GR in EMPTY EVACUATED CONT 0 ML IV ONE; +IMMUNE GLOBUL G/GLY/IGA 20 GM 200 ML IV ONE; +NS(*) 0.9% 250 ML BAG 250 ML IVPB PRN
[2019-03-31 11:00] VITALS: BP 170/83
--- NOTE | 2019-04-01 04:43 | ONCOLOGY FOLLOW UP NOTE ---
EVENT DATE: March 31, 2019 CHIEF COMPLAINT/REASON FOR VISIT Ms. Saunders is a pleasant 73-year-old female here for followup for SLL as well as severe acquired hypogammaglobulinemia. HISTORY OF PRESENT ILLNESS Elena returns. She was diagnosed with low-grade non-Hodgkin lymphoma (SLL) after a CABG workup in 2012. She has numerous comorbidities including chronic kidney disease, COPD, heart disease. With this workup for her SLL, we discovered that she has profoundly low hypogammaglobulinemia with an IgG as low as 175. She was on monthly IVIG due to frequent infections until August 2018. Unfortunately, she has developed multiple severe infections including a hospitalization for pneumonia in January 2019, and we have resumed IVIG. I believe she needs it indefinitely now. She is still recovering from the major setbacks from this pneumonia and hospitalization two months ago. She is also struggling right now with one of her daughters, but is optimistic that they will work it out. She is losing weight, but this has started to improve. She is working with Nutrition regularly. She saw them last week. PAST MEDICAL/SURGICAL HISTORY 1. Cataract surgery. 2. Coronary artery disease. 3. Coronary artery bypass grafting in 2012, followed by Dr. Ronald Swanson. 4. Hyperlipidemia. 5. Hypertension. 6. History of back surgery. 7. Diabetes. 8. Incidentally found low-grade lymphoma (SLL). 9. 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 FAMILY HISTORY Noncontributory. SOCIAL HISTORY Patient currently lives here in [place]. She has multiple children, grandchildren, and great-grandchildren here in the region. Her youngest great- grandchild is now almost 4 years old. ALLERGIES 1. IBUPROFEN. 2. TORADOL. MEDICATIONS 1. Acetaminophen 325 mg daily. 2. Amlodipine 10 mg daily. 3. Atorvastatin calcium 20 mg daily. 4. Carvedilol 25 mg p.o. b.i.d. 5. Cranberry extract 200 mg p.o. b.i.d. 6. Digoxin 125 mcg tablet p.o. q. day. 7. Gabapentin 300 mg p.o. b.i.d. 8. Insulin NPH 30 units subcutaneously b.i.d. 9. Melatonin 3 mg p.o. at bedtime. 10. Multivitamin one p.o. q. day. 11. Nitrofurantoin 50 mg p.o. at bedtime. 12. Xarelto 15 mg p.o. q. day. 13. Vitamins A and D topical q. day p.r.n. itching. REVIEW OF SYSTEMS CONSTITUTIONAL: No fevers or chills. Positive slow weight loss. HEENT: No headache or vision changes. CARDIOVASCULAR: No chest pain, edema. Positive dyspnea on exertion. RESPIRATORY: No shortness of breath at rest. Utilizing supplemental oxygen 3L to 4L by nasal cannula. Sedentary lifestyle. GASTROINTESTINAL: No nausea or vomiting. GENITOURINARY: No dysuria or hematuria. MUSCULOSKELETAL: Positive generalized weakness. She uses a walker at times. She is currently in a wheelchair. PSYCHIATRIC: No anxiety or depression. ENDOCRINE: No heat or cold intolerance. HEMATOLOGIC: No bruising or bleeding. SKIN: No concerning rashes or pruritus. Remainder of 14-point review of systems otherwise negative. PHYSICAL EXAMINATION VITAL SIGNS: Blood pressure 170/83, pulse 66, respiratory rate 16, temperature 97 Fahrenheit, oxygen saturation 96% on room air. Weight 72.8 kg, pain 0/10, fatigue 0/10. GENERAL: Stable condition, resting comfortably in the chair. HEENT: Normocephalic, atraumatic. ECOG performance status of 3. CARDIOVASCULAR: Regular rate and rhythm. I do believe that I hear a murmur. She has a history of atrial fibrillation, but seemed to be regular today. RESPIRATORY: Using oxygen. Clear bilaterally. ABDOMEN: Soft, nontender. No masses. EXTREMITIES: No clubbing, cyanosis, or edema. Remainder of physical exam otherwise unremarkable. IMPRESSION/REPORT/PLAN Ms. Saunders is a pleasant 73-year-old female with the followin. 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 Continue active surveillance. She has not required treatment for this and may never require treatment. 2. Acquired hypogammaglobulinemia due to low-grade non-Hodgkin lymphoma. Baseline IgG was severely low at 175. We stopped IVIG in August 2018, but she has had major issues with infection. She had a severe pneumonia with hospitalization in January 2019 and is still recovering from this. I believe she needs IVIG indefinitely. We have resumed this. 3. History of heart failure and diastolic heart dysfunction. 4. Chronic obstructive pulmonary disease. 5. Chronic kidney disease. Plan to see her every three months while she is on IVIG. Answered all of her questions today. BILLING Return visit level 4. Total time 30 minutes, counseling time 25. RONAKD
== END 2019-04-06 ==
LOC: ONC 10:59
PROVIDERS: ATTEND Internal Medicine
DX: C85.90 Non-Hodgkin lymphoma, unspecified, unspecified site (principal); D80.1 Nonfamilial hypogammaglobulinemia; J44.9 Chronic obstructive pulmonary disease, unspecified; N18.9 Chronic kidney disease, unspecified; R53.1 Weakness; R53.83 Other fatigue
CPT/HCPCS: 82784; 85025; 85027; 96365; 96366; 96375; A9270; G0463; J1100; J1459; J1561; J7050; Q0163; 82040; 82247; 82310; 82374; 82435; 82565; 82947; 84075; 84132; 84155; 84295; 84450; 84460; 84520; 99212